=== PATIENT | female | born 1955 | race Caucasian/White ===

== ENCOUNTER 2020-01-03 11:08 | Outpatient (REF) | payer OTHER, SELFPAY ==
[2020-01-05 19:46] LABS: TS Negative Control Passed; TS Panel A 1; TS Panel B 1; TS Positive Control Passed; TSpotTB Negative (SeeBelow)
== END 2020-01-03 11:09 | disposition home or self-care (01) ==
LOC: HO.HMGCLDS 11:08
PROVIDERS: PCP Internal Medicine; Visit Provider Internal Medicine
DX: Z11.1 Encounter for screening for respiratory tuberculosis (principal); Z20.828 Contact with and (suspected) exposure to other viral communicable diseases
CPT/HCPCS: 86481; C9803; U0003

== ENCOUNTER 2020-02-12 09:15 | Outpatient (REF) | payer OTHER, SELFPAY ==
[2020-02-12 10:59] LABS: Glucose Urine UA NEG (NEG); Leukocyte Esterase Urine 1+ (NEG); Nitrite Urine POS (NEG); PH 5.5 (5.0-8.0); Specific Gravity - Urine >= 1.030 (1.005-1.025); Urine Blood NEG (NEG); Urine Ketones NEG (NEG); Urine Protein NEG (NEG-TRACE)
[2020-02-12 11:09] LABS: Appearance Urine HAZY; Color Urine YELLOW
[2020-02-12 11:11] LABS: Squamous Epithelial Cell Urine 1+ /LPF
[2020-02-12 11:12] LABS: Bacteria Urine 2+ /LPF
[2020-02-12 11:38] LABS: HBS Num1 27.13 mIU/mL (0-7.99); HBc Num1 0.17 S/CO (0.00-0.79); HBsAGNum1 0.23 S/CO (0.00-0.99); HIV AB/AG Nonreactive (Nonreactive); HIV Num 1 0.08 S/CO (0.00-0.99); Hepatitis B Core Antibody Nonreactive (Nonreactive); Hepatitis B Surface Antigen Negative (Negative); ~Hepatitis B Surface Antibody REACTIVE (Nonreactive); ~Hepatitis C Antibody Nonreactive (Nonreactive)
[2020-02-13 08:50] LABS: Syphilis Screen Nonreactive (Nonreactive)
[2020-03-08 11:28] LABS: CT PCR NOT DETECTED (Not Detect.); NG PCR NOT DETECTED (Not Detect.)
== END 2020-02-12 09:16 | disposition home or self-care (01) ==
LOC: HO.WFDLDS 09:15
PROVIDERS: Visit Provider Family Medicine
DX: I12.9 Hypertensive chronic kidney disease with stage 1 through stage 4 chronic kidney disease, or unspecified chronic kidney disease (principal); N18.2 Chronic kidney disease, stage 2 (mild); R80.9 Proteinuria, unspecified
CPT/HCPCS: 81001; 86704; 86706; 86780; 86803; 87086; 87088; 87186; 87340; 87389; 87491; 87591

== ENCOUNTER → 2020-03-11 13:30 | Outpatient (BNVA) | payer OTHER, SELFPAY | PROVIDERS: PCP Internal Medicine; Referring Provider Internal Medicine; Visit Provider Urology | DX: Z13.89 Encounter for screening for other disorder (principal) | CPT/HCPCS: Q3014 ==

== ENCOUNTER 2020-07-03 12:36 | Outpatient (REF) | payer OTHER, SELFPAY ==
--- NOTE | ~2020-07-03 | MM_ITS ---
EXAMINATION: MM SCREENING DIGITAL BREAST TOMOSYNTHESIS, BILATERAL CLINICAL INFORMATION: Screening. Asymptomatic. Benign right stereotactic biopsy 03/10/2016 (Benign breast tissue with stromal fibrosis, microcysts, columnar cell change and microcalcifications. Sclerosing adenosis and rare microcalcifications also noted). The lifetime risk of breast cancer based on the Tyrer-Cuzick Model is 10%. COMPARISON: Mammography: 04/19/2019, 03/17/2018, 03/02/2017, 10/25/2016, 03/10/2016, 03/02/2016, 02/20/2016 TECHNIQUE: Digital breast tomosynthesis is performed in both the craniocaudal and mediolateral oblique views along with computer-aided detection (CAD). Synthesized 2D images are generated from the tomosynthesis. Additional right MLO view is provided. FINDINGS: The breasts are heterogeneously dense, which may obscure small masses (ACR BI-RADS breast composition Category c). Parenchymal pattern is similar to prior studies. There is fibronodular parenchymal pattern with scattered bilateral stable asymmetries. There is no developing density or significant mass or architectural abnormality. No abnormal calcifications. There is biopsy clip marker posterior upper outer right breast. The axilla and skin contours are unremarkable. Low right axillary tail nodes stable. MM/MM tomosynthesis screening BI IMPRESSION: No significant changes from prior exams. ASSESSMENT: BI-RADS 2: Benign RECOMMENDATION: Routine annual mammography screening. This patient's information was entered into a reminder system with a target due date for their next mammogram.
== END 2020-07-03 12:37 | disposition home or self-care (01) ==
LOC: HO.MAMMO 12:36
PROVIDERS: PCP Internal Medicine; Visit Provider Internal Medicine
DX: Z12.31 Encounter for screening mammogram for malignant neoplasm of breast (principal)
CPT/HCPCS: 77063; 77067

== ENCOUNTER 2020-10-30 09:35 | Outpatient (REF) | payer OTHER, SELFPAY ==
[2020-11-01 23:21] LABS: TS Negative Control Passed; TS Panel A 0; TS Panel B 1; TS Positive Control Passed; TSpotTB Negative (SeeBelow)
== END 2020-10-30 09:36 | disposition home or self-care (01) ==
LOC: HO.HMGCLDS 09:35
PROVIDERS: PCP Internal Medicine; Visit Provider Internal Medicine
DX: Z11.1 Encounter for screening for respiratory tuberculosis (principal)
CPT/HCPCS: 36415; 86481

== ENCOUNTER 2020-11-05 11:12 | Outpatient (REF) | payer OTHER, SELFPAY ==
[2020-11-05 14:27] LABS: Alanine Aminotransferase 14 U/L (0-31); Anion Gap 17 (12-20); Aspartate Amino Transferase 19 U/L (5-31); Blood Urea Nitrogen 15 mg/dL (9-16); Calcium 9.6 mg/dL (8.4-10.2); Carbon Dioxide 23 mmol/L (22-29); Chloride 107 mmol/L (96-108); Cholesterol 225 mg/dL; Estimated Glomerular Filt Rate 55; Glucose Fasting 110 mg/dL (60-99); HDL Cholesterol 65 mg/dL; LDL Cholesterol Calculated 141 mg/dl; Potassium 4.6 mmol/L (3.3-5.1); Sodium 142 mmol/L (135-145); Triglycerides 98 mg/dL
[2020-11-05 14:40] LABS: Vitamin D 25-OH Total 42.7 ng/mL (>30)
== END 2020-11-05 11:13 | disposition home or self-care (01) ==
LOC: HO.HMGCLDS 11:12
PROVIDERS: PCP Internal Medicine; Visit Provider Internal Medicine
DX: Z00.00 Encounter for general adult medical examination without abnormal findings (principal); I10 Essential (primary) hypertension; Z78.0 Asymptomatic menopausal state
CPT/HCPCS: 36415; 80048; 80061; 82306; 84450; 84460

== ENCOUNTER → 2020-11-06 15:05 | Outpatient (BNVA) | payer OTHER, SELFPAY | PROVIDERS: PCP Internal Medicine | DX: N39.41 Urge incontinence (principal) | CPT/HCPCS: 51798; 99212 ==

== ENCOUNTER 2021-03-26 09:59 | Outpatient (REF) | payer OTHER, SELFPAY ==
[2021-03-26 11:44] LABS: Estimated Average Glucose 126 mg/dL
[2021-03-26 11:52] LABS: Anion Gap 11 (12-20); Blood Urea Nitrogen 18 mg/dL (9-16); Calcium 9.5 mg/dL (8.4-10.2); Carbon Dioxide 28 mmol/L (22-29); Chloride 105 mmol/L (96-108); Estimated Glomerular Filt Rate 59; Iron 52 mcg/dL (30-160); Magnesium 1.9 mg/dL (1.6-2.6); Percent Iron Saturation 16 % (15-50); Potassium 4.1 mmol/L (3.3-5.1); Sodium 140 mmol/L (135-145); Total Iron Binding Capacity 321 mcg/dL (228-428); Unsaturated Iron Binding 269 ug/dL
[2021-03-26 11:53] LABS: Alanine Aminotransferase 16 U/L (0-31); Anion Gap 11 (12-20); Aspartate Amino Transferase 18 U/L (5-31); Blood Urea Nitrogen 18 mg/dL (9-16); Calcium 9.7 mg/dL (8.4-10.2); Carbon Dioxide 28 mmol/L (22-29); Chloride 105 mmol/L (96-108); Cholesterol 235 mg/dL; Estimated Glomerular Filt Rate 60; Glucose Fasting 125 mg/dL (60-99); HDL Cholesterol 57 mg/dL; LDL Cholesterol Calculated 156 mg/dl; Potassium 4.3 mmol/L (3.3-5.1); Sodium 140 mmol/L (135-145); Triglycerides 113 mg/dL
[2021-03-26 12:08] LABS: Creatinine Urine 165.45 mg/dL; Protein/Creatinine Ratio, Ur 0.19 (<0.2); Total Protein Urine Random 31 mg/dL (<12)
[2021-03-26 12:13] LABS: Ferritin 181 ng/mL (10-250)
[2021-03-26 12:14] LABS: Vitamin D 25-OH Total 32.6 ng/mL (>30)
[2021-03-27 14:07] LABS: Calcium (PTHI) 9.7 mg/dL (8.6-10.4); PTHI 80 pg/mL (14-64)
== END 2021-03-26 10:00 | disposition home or self-care (01) ==
LOC: HO.HMGCLDS 09:59
PROVIDERS: PCP Internal Medicine; Visit Provider Internal Medicine Nephrology
DX: Z00.01 Encounter for general adult medical examination with abnormal findings (principal); I10 Essential (primary) hypertension; E78.5 Hyperlipidemia, unspecified; R73.01 Impaired fasting glucose; M81.0 Age-related osteoporosis without current pathological fracture; Z79.810 Long term (current) use of selective estrogen receptor modulators (SERMs); Z51.81 Encounter for therapeutic drug level monitoring
CPT/HCPCS: 36415; 80048; 80051; 80061; 82306; 82310; 82565; 82728; 83036; 83540; 83735; 83970; 84156; 84450; 84460; 84520

== ENCOUNTER 2021-07-07 08:15 | Outpatient (REF) | payer OTHER, SELFPAY ==
--- NOTE | ~2021-07-07 | MM_ITS ---
EXAMINATION: BONE DENSITOMETRY CLINICAL INDICATION: Age-related osteoporosis without current pathological fracture. COMPARISON: Previous BD dated 04/15/2017 and baseline BD dated 07/23/2010. TECHNIQUE: Using a [employer] DXA System (software version: 13.1) manufactured by [employer], dual-energy x-ray absorptiometry was performed of the lumbar spine and left hip. The images are of good technical quality. Summary results are attached. FINDINGS: AP SPINE L1-L4: Current: BMD 1.011 g/cm2, Z-score -0.7, T-score -1.4, osteopenia, 4.1% increase from previous, 1.9% increase from baseline (<5% change is not significant). Prior: BMD 0.971 g/cm2. Baseline: BMD 0.992 g/cm2. LEFT FEMUR, NECK: Current: BMD 0.691 g/cm2, Z-score -1.6, T-score -2.5, osteoporosis. Prior: BMD 0.631 g/cm2. Baseline: BMD 0.643 g/cm2. LEFT FEMUR, TOTAL: Current: BMD 0.679 g/cm2, Z-score -2.1, T-score -2.6, osteoporosis, 13.7% increase from previous, 2.0% increase from baseline (<5% change is not significant). Prior: BMD 0.597 g/cm2. Baseline: BMD 0.666 g/cm2. IDENTIFIED RISK FACTORS: Early menopause, secondary osteoporosis, osteoporosis, renal, tobacco use (current smoker), hysterectomy. HISTORY OF FRACTURE: None listed. MEDICATIONS: Calcium or multivitamin. MM/XR DEXA axial skeleton IMPRESSION: 1. DIAGNOSIS: Osteoporosis based on the lowest T-score value of -2.6 in the total femur applying World Health Organization criteria. 2. 10-YEAR FRACTURE RISK PREDICTION, FRAX: According to the guidelines, FRAX calculation should only be performed on patients in the osteopenia bone density category. Therefore, FRAX was not performed on this patient. 3. Treatment Recommendations: NOF guidelines recommend consideration for treatment in postmenopausal women and men age 50 and older presenting with the following: -A hip or vertebral (clinical or morphometric) fracture. -T-score less than or equal to -2.5 at the femoral neck or spine after appropriate evaluation to exclude secondary causes. -Low bone mass at the hip or spine and a 10-year fracture probability by FRAX of greater than or equal to 3% for hip fracture or greater than or equal to 20% for major osteoporotic fracture based on the [place] adapted WHO algorithm. 4. Other Recommendations: All treatment decisions require clinical judgment and consideration of individual patient factors, including patient preferences, comorbidities, previous drug use, risk factors not captured in the FRAX model (e.g. frailty, falls, vitamin D deficiency, increased bone turnover, interval significant decline in bone density) and possible under or overestimation of fracture risk by FRAX. Additional medical evaluation for secondary cause of low bone mineral density may be appropriate. FUTURE SCAN RECOMMENDATION: People with diagnosed cases of osteoporosis or at high risk for fracture should have regular bone mineral density tests. For patients eligible for Medicare, routine testing is allowed once every 2 years. The testing frequency can be increased to one year for patients who have rapidly progressing disease, those who are receiving or discontinuing medical therapy to restore bone mass, or have additional risk factors.
--- NOTE | ~2021-07-07 | MM_ITS ---
EXAMINATION: MM SCREENING DIGITAL BREAST TOMOSYNTHESIS, BILATERAL CLINICAL INFORMATION: Screening. Asymptomatic. The lifetime risk of breast cancer based on the Tyrer-Cuzick Model is 6%. COMPARISON: Mammography: 07/03/2020, 04/19/2019, 03/17/2018, 03/02/2017, 02/20/2016 TECHNIQUE: Digital breast tomosynthesis is performed in both the craniocaudal and mediolateral oblique views along with computer-aided detection (CAD). Synthesized 2D images are generated from the tomosynthesis. FINDINGS: The breasts are heterogeneously dense, which may obscure small masses (ACR BI-RADS breast composition Category c). Fibronodular parenchymal pattern with scattered bilateral asymmetries and shifting fibroglandular tissue related to positioning are seen similar to prior studies. There is no significant mass or architectural abnormality. No abnormal calcifications. Biopsy clip marker again noted on right posterior upper outer quadrant. The axilla and skin contours are unremarkable. No significant changes from prior studies. MM/MM tomosynthesis screening BI IMPRESSION: No significant changes from prior exams. ASSESSMENT: BI-RADS 2: Benign RECOMMENDATION: Routine annual mammography screening. This patient's information was entered into a reminder system with a target due date for their next mammogram.
== END 2021-07-07 08:16 | disposition home or self-care (01) ==
LOC: HO.MAMMO 08:15
PROVIDERS: Visit Provider Internal Medicine
DX: Z13.820 Encounter for screening for osteoporosis (principal); Z12.31 Encounter for screening mammogram for malignant neoplasm of breast; M81.0 Age-related osteoporosis without current pathological fracture; Z78.0 Asymptomatic menopausal state
CPT/HCPCS: 77063; 77067; 77080

== ENCOUNTER 2021-09-07 13:07 | Outpatient (REF) | payer OTHER, SELFPAY | END 2021-09-07 13:08 | disposition home or self-care (01) | LOC: HO.LAB 13:07 | DX: N39.0 Urinary tract infection, site not specified (principal); N31.2 Flaccid neuropathic bladder, not elsewhere classified; Z87.891 Personal history of nicotine dependence | CPT/HCPCS: 87086; 87088; 87186; 99212 ==

== ENCOUNTER → 2021-10-05 13:21 | Outpatient (BNVA) | payer OTHER, SELFPAY | PROVIDERS: PCP Internal Medicine; Visit Provider Internal Medicine | DX: A49.8 Other bacterial infections of unspecified site (principal); N18.2 Chronic kidney disease, stage 2 (mild); N39.41 Urge incontinence; Z16.12 Extended spectrum beta lactamase (ESBL) resistance | CPT/HCPCS: 99202 ==

== ENCOUNTER 2021-12-28 12:50 | Outpatient (RCR) | payer OTHER, SELFPAY ==
--- NOTE | 2022-01-18 17:04 | MHC.SP.ADU ---
Addendum entered and electronically signed by Gisela Metz MA, CCC-PASSENGER BARGE MASTER 01/18/22 17:29: As a clinical supervisor telephone clerks, I have reviewed and agree with the content of this report. 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 Bev was referred for a speech and language evaluation by her primary care physician, Valorie Zamora MD, of [facility] in [place], [place]. Bev was accompanied by her son, Jeremi, to the evaluation on 12/28/21. Reported areas of difficulty include: expressing thoughts, being understood by others, understanding what others are saying, orientation/memory, problem solving, focus/attention, reading/writing, word finding, maintaining conversation topic, speech fluency, and oral motor weakness. Bev reports that her main concerns are reading, writing, memory, attention, and word finding. Bev reports that she reads ?about 2nd grade level? and ?is not able to digest information? since the stroke.? Bev and her son both report that she had some difficulty with short term memory prior to the stroke. She reports that she is ?sometimes not able to remember what she is talking about? and ?forgets where she is going? at times. Bev reports seeing a Speech-Language Pathologist and Occupational Therapist during her time hospitalized for the recent stroke then seeing an aide at the house for a few short visits after discharge. Bev reported that she was told she would need to see a Speech-Language Pathologist once discharged from the hospital. Medical History: Other: Bipolar disorder, Expressive aphasia, L MCA, encephalopathy, hypertensive urgency, bipolar I disorder, obese class I Medication List: Recent Hospitalizations: Yes September 2021 for CVA Respiratory Needs: Room Air Patient Orientation: Alert & Oriented x 4 Swallowing History: Comments: Bev expresses she has no difficulty with swallowing Reported Speech, Language, Cognition difficulties: Understanding Attention Reading Memory Speaking Problem Solving Writing Assessment Speech Production: Aphasic: Fluent Clinical Impression: Impaired Tests of Speech & Lang Adults: BDAE Clinical Impression: Impaired Observations: At times, Bev?s narratives were difficult to follow due to a combination of circumlocution and word finding errors. For example, when trying to explain some challenges she has she stated, ??incognate things? I can follow small orders to do.? At times, Bev appears unaware her message is unclear. Bev reports that she has ?difficulty putting sentences together? and ?tries to go slow.? She reports that she sometimes refrains from talking because of her nerves. Bev reports that she has difficulty with word finding, stating that she ?sometimes says a completely incorrect word? or will say ?school instead of work.? Word finding errors were observed throughout both the interview and evaluation. Bev presented most often with phonemic paraphasias, sometimes real word and sometimes nonsense word. For example, ?Napoleon? was substituted with ?Cynthiana? and ?pretzel? was produced as ?preskel.? Bev presented with slow, effortful, and choppy speech reflective of her dysarthria. Throughout the evaluation, Bev requested frequent repetitions and clarifications. For example, when asked to dictate the word ?flag,? Bev responded, ?You said flag?? Bev reports that she relies a lot on her son to help her with communication and memory. Bev demonstrated difficulty expressing numbers. When asked when she was born Bev responded, ?[birth year].? When prompted for the year, Bev responded ?that?s where it gets tricky? 5? 7.? When prompted for age, Bev responded ?51? nope I?m sorry 66? no, 5? yes, 5?? When shown the number 66 and asked to read it, Bev stated she was not able to. Bev was subsequently able to provide the number ?25? in her street address and her full zip code. Western Aphasia Battery Screening: AUDITORY VERBAL COMPREHENSION QUESTIONS: Bev answered yes/no auditory comprehension questions with 100% accuracy. When asked ?do you eat a banana before you peel it?? Bev explained the process of peeling and eating a banana prior to answering ?no? correctly. REPETITION: Bev accurately repeated words (1-3 syllables) and short sentences. When presented with a 7 word sentence, Bev correctly remembered 3 of the words in her response: ?Too long? That?s a tricky one? Brown dog something over.? BDAE: Bev was administered several subtests from the [employer] Diagnostic Aphasia Evaluation (BDAE). The subtests administered with and notes on Bev?s performance are summarized below: PICTURE DESCRIPTION: Bev was shown the ?Cookie Theft? picture and asked to describe the picture. Bev demonstrated word finding difficulty several times throughout the task. ?Let?s see, we start with a boy? or girl in the ch-cookie jar?eating cookies?or saving-sharing cookies quietly? on a broken bench.? AUDITORY COMPREHENSION: -When given a word orally, Bev identified the correct word in 15 out of 16 items by pointing to the correct picture. Bev pointed to the letter ?O? when asked to point to the letter ?N.? Responses after a short time delay (>5 seconds) were scored with 1/2 point while immediate responses (<5 seconds) were scored with 1 point. Incorrect test items were scored 0. Bev scored a 14.5/16 on this subtest. -When given 2-step commands verbally, Bev followed 1 out of 3 commands. When prompted to, ?Point to the ceiling, then to the floor,? Bev looked with her eyes first to the floor and then to the ceiling. The one command that Bev followed correctly, she was observed to repeat the directions aloud to herself slowly while following the commands at the same time. -After being read a short 4 sentence passage aloud, Bev was asked 4 comprehension questions to which she answered correctly. ORAL EXPRESSION: Bev did not demonstrate difficulty with automatic sequencing tasks including counting and reciting days of the week. Bev did demonstrate difficulty understanding instructions for this task, as she was asked to count to 21 and stopped counting at 20. READING: -Bev was able to match letters across cases and scripts, demonstrating basic symbol recognition, receiving a 4/4 on this task. -Bev was able to match numbers to fingers and dot patterns, receiving a score of 4/4 on this task. -Bev was asked to match pictures to written words, receiving a score of 3/4 on this task. However, Bev verbally produced the correct words while reading aloud. -Bev demonstrated some delay in response when asked to read single words aloud. Immediate responses (0-3 seconds) were scored with 3 points, short delay (3-10 seconds) was scored with 2 points, and long delay (10-30 seconds) was scored with 1 point. Bev read some words immediately and others with delay varying from 5 seconds to 15 seconds. Bev demonstrated some possible errors in word finding. For example, the word ?fifteen? was initially read as ?pineapple.? Bev scored 12/15 on this task. -Bev read aloud sentences of increasing length and complexity then answered written comprehension questions after a short delay. Bev read aloud sentences correctly in 3 out of 5 trials and answered comprehension questions correctly in 3/3 trials. Incorrect words were replaced with phonemically similar words. For example, ?forty-five? was read as ?fifteen? and ?snacks? was read as ?stands.? -Bev was asked to read aloud sentences and to select the correct word or phrase to complete the sentence from a choice of 4 written words. Bev received a 4/4 on this task. WRITING: Bev was able to print and sign her name as well as write letters, numbers and words that were dictated to her. Minimal spelling errors were demonstrated, however Bev?s writing was observed to be slow and laborious. It took over 30 seconds and 3 attempts to write the word ?apartment? and over 2 minutes to copy the sentence, ?The quick brown chase jumps over the lazy dog.? When copying this sentence Bev was observed to consistently look at the written model and then write several times per word. Each time the Bev made an error, she began writing the entire word over again. Often times Bev delayed 5+ seconds prior to writing a word on paper. Bev exhibited less difficulty with primer words in comparison to regular phonics and common irregular word forms. Bev was observed to spell the word ?knife? aloud correctly as ?K-N-I-F-E? while pointing to letters she had written on paper: K-N-I-V-[id number]. She attempted the word cough 2X then gave up. Tests of Cognition: Clinical Impression: Did Not Test Observations: Plan to test Impressions and Recommendations Summary: Based on the evaluation, Bev presents with moderate expressive -receptive aphasia characterized by word finding errors, difficulty following commands, and increased effort and time for reading and writing. Bev also presents with difficulty in cognitive linguistic areas including attention and memory. Daily Activities: Moderate Interpersonal Interactions: Moderate Prognosis for Improvement: Good Recommendation for Speech Therapy: Further Testing Needed Outpatient Speech Therapy Frequency/Duration: 1x weekly x 12 weeks Date Range for Service Requested: Time to Reassess: 6 months RECOMMENDATIONS: It is recommended that Bev participate in 1:1 speech and language therapy in the outpatient setting 1X weekly for 12 weeks. The following goals/objectives are recommended: Cut Off Tender Glass Goals: LTG 1 Bev will complete standardized testing of her receptive and expressive language skills to obtain standardized scores and update goals as appropriate. LTG 2 Bev will improve expressive and receptive language skills. LTG 3 Bev will improve self-advocacy for more opportunities and times to participate in conversation. Short Term Goals: STG 1.1 Bev will complete the BDAE with 100% completion to better inform goals. STG 1.2 Bev will complete the CLQT with 100% completion to better inform goals in the area of attention and memory. STG 2.1 Bev will name functional items with moderate support (i.e. phonemic cues) with 80% accuracy during confrontational naming tasks. STG 2.2 Bev will follow verbal or written 2-step command with no more than 1 repetition when provided with gestural support with 80% accuracy. STG 2.3 Bev will complete functional written language tasks (i.e. email or text conversations, filling out paperwork, etc.) when provided with minimal support with 80% accuracy. STG 3.1 Bev will independently request more time (vocally or with gesture) in order to process information or find correct words within communicative interactions in 80% of opportunities. Recommended Referrals to be Discussed with Primary Care Provider: Neurology: Recommend referral to neurology due to patient's report of short term memory loss present prior to CVA. Occupational Therapy Eval: Recommend referral for occupational therapy due to patient?s report of not being able to consistently partake in functional tasks like making food and doing her hair. Patient Education: Completed: Yes Patient/Caregiver Education: Described Results of Evaluation Patient expressed understanding of evaluation Patient agrees with goals and treatment plan It was a pleasure to work with Bev and her family. If you have any questions about the contents of this report, do not hesitate to contact me at [phone] or [email or web address] Lathe Set Up Operator Clinican/Clinical Fellow: Yes: Jeana Fowler M.A., -PASSENGER BARGE MASTER Supervisory Statement: Yes Speech Language Pathologist: Gisela Metz M.A., [facility]-PASSENGER BARGE MASTER
== END 2022-01-27 15:07 | disposition still patient (30) ==
LOC: HO.SH 12:50
PROVIDERS: Visit Provider Internal Medicine
DX: R47.01 Aphasia (principal); I69.30 Unspecified sequelae of cerebral infarction
CPT/HCPCS: 92523

== ENCOUNTER 2022-03-22 13:01 | Outpatient (REF) | payer OTHER, SELFPAY ==
[2022-03-22 16:51] LABS: Urine Cytology See Pathology rpt
== END 2022-03-22 13:02 | disposition home or self-care (01) ==
LOC: HO.LAB 13:01
PROVIDERS: PCP Nurse Practitioner Family; Visit Provider Nurse Practitioner Family
DX: N39.0 Urinary tract infection, site not specified (principal); N32.81 Overactive bladder; Z86.73 Personal history of transient ischemic attack (TIA), and cerebral infarction without residual deficits; Z79.899 Other long term (current) drug therapy
CPT/HCPCS: 87086; 87088; 87186; 88112; 99212

== ENCOUNTER 2022-03-30 10:12 | Outpatient (REF) | payer OTHER, SELFPAY ==
[2022-03-30 11:47] LABS: Hematocrit 38.9 % (37.0-47.0); Hemoglobin 12.9 g/dl (12.0-16.0); Mean Corpuscular HGB Conc 33.2 g/dl (31.0-35.0); Mean Corpuscular Hemoglobin 31.3 pg (27.0-33.0); Mean Corpuscular Volume 94.4 fL (80.0-98.0); Mean Platelet Volume 10.2 fL (9.4-12.3); Platelet Count 286 X10*3/uL (160-400); Red Blood Count 4.12 X10*6/uL (4.20-5.50); Red Cell Distribution Width 12.1 % (11.0-16.0); White Blood Count 9.4 X10*3/uL (4.8-10.8)
[2022-03-30 12:47] LABS: Alanine Aminotransferase 16 U/L (0-31); Albumin Level 4.2 g/dL (3.5-5.0); Alkaline Phosphatase 74 U/L (39-117); Anion Gap 16 (12-20); Aspartate Amino Transferase 18 U/L (5-31); Bilirubin Total 0.6 mg/dL (0.0-1.0); Blood Urea Nitrogen 28 mg/dL (9-16); Calcium 9.5 mg/dL (8.4-10.2); Carbon Dioxide 26 mmol/L (22-29); Chloride 106 mmol/L (96-108); Cholesterol 144 mg/dL; Estimated Glomerular Filt Rate 37; Glucose Fasting 94 mg/dL (60-99); HDL Cholesterol 32 mg/dL; LDL Cholesterol Calculated 86 mg/dl; Potassium 3.9 mmol/L (3.3-5.1); Sodium 144 mmol/L (135-145); Total Protein 6.6 g/dL (6.5-8.0); Triglycerides 134 mg/dL
[2022-03-30 13:06] LABS: TSH reflex Free T4 1.18 uIU/mL (0.32-4.0); Vitamin D 25-OH Total 40.7 ng/mL (>30)
== END 2022-03-30 10:13 | disposition home or self-care (01) ==
LOC: HO.WFDLDS 10:12
PROVIDERS: Visit Provider Nurse Practitioner Family
DX: Z00.00 Encounter for general adult medical examination without abnormal findings (principal)
CPT/HCPCS: 36415; 80053; 80061; 82306; 84443; 85027

== ENCOUNTER 2022-05-21 10:28 | Outpatient (REF) | payer OTHER, SELFPAY ==
--- NOTE | ~2022-05-21 | US_ITS ---
EXAMINATION: US RETROPERITONEAL COMPLETE (RENAL) CLINICAL INFORMATION: N39.0 - Urinary tract infection, site not specified. COMPARISON: None available. TECHNIQUE: Real-time imaging of the kidneys and bladder. FINDINGS: RIGHT KIDNEY: 11.7 x 5.6 x 5.7 cm (SAG x AP x TRV). The kidney is normal in size, contour, and echogenicity. Renal cortical thickness is normal. A 5 x 4 x 2 mm calculus is suspected within a calyx at the interpolar region. A 2 x 3 x 4 mm shadowing echogenic calculus is suspected in an upper pole calyx. No hydronephrosis. LEFT KIDNEY: 7.7 x 4.1 x 3.0 cm (SAG x AP x TRV). Left kidney is atrophic with renal cortical thinning. Normal parenchymal echogenicity. No focal parenchymal lesions. No hydronephrosis. Echogenic foci are evident within the region of the calyces at the interpolar region of the left kidney, measuring 6 x 5 x 5 mm and 6 x 4 x 6 mm. A 6 x 7 x 6 mm calculus is suspected within an upper pole calyx. No hydronephrosis. BLADDER: Well distended. Bilateral ureteral jets are not demonstrated. Prevoid bladder volume is 151 mL. Postvoid bladder volume is 15 mL. INCIDENTAL: Along the right aspect of the bladder dome, there is a primarily cystic lesion measuring 6.4 x 12 x 7.4 cm with solid components and internal projections, likely ovarian in origin. US/US retroperitoneal comp IMPRESSION: 1. Bilateral nonobstructive renal calculi. No hydronephrosis. 2. Left renal atrophy. 3. Cystic lesion at the right aspect of the bladder dome, likely ovarian in origin. MRI pelvis with and without contrast or surgical assessment is recommended for further assessment.
== END 2022-05-21 10:29 | disposition home or self-care (01) ==
LOC: HO.US 10:28
PROVIDERS: PCP Nurse Practitioner Family; Visit Provider Nurse Practitioner Family
DX: N39.0 Urinary tract infection, site not specified (principal); N32.81 Overactive bladder
CPT/HCPCS: 76770

== ENCOUNTER 2022-06-16 11:17 | Outpatient (REF) | payer OTHER, SELFPAY | END 2022-06-16 11:18 | disposition home or self-care (01) | LOC: HO.LAB 11:17 | PROVIDERS: PCP Nurse Practitioner Family; Visit Provider Nurse Practitioner Family | DX: N83.209 Unspecified ovarian cyst, unspecified side (principal); N39.0 Urinary tract infection, site not specified; N32.81 Overactive bladder | CPT/HCPCS: 51798; 87086; 87088; 87186; 99212 ==

== ENCOUNTER → 2022-07-14 13:26 | Outpatient (BNVA) | payer OTHER, SELFPAY | PROVIDERS: PCP Nurse Practitioner Family; Visit Provider Nurse Practitioner Family | DX: N83.201 Unspecified ovarian cyst, right side (principal); N39.0 Urinary tract infection, site not specified; N32.81 Overactive bladder | CPT/HCPCS: 51798; 99212 ==

== ENCOUNTER → 2022-07-16 14:55 | Outpatient (BNVA) | payer OTHER, SELFPAY | PROVIDERS: PCP Nurse Practitioner Family; Visit Provider Internal Medicine Endocrinology, Diabetes & Metabolism | DX: M81.0 Age-related osteoporosis without current pathological fracture (principal); N18.2 Chronic kidney disease, stage 2 (mild); Z78.0 Asymptomatic menopausal state; Z72.0 Tobacco use; Z90.710 Acquired absence of both cervix and uterus; Z79.810 Long term (current) use of selective estrogen receptor modulators (SERMs); Z79.899 Other long term (current) drug therapy | CPT/HCPCS: 99202 ==

== ENCOUNTER 2022-07-22 15:02 | Outpatient (REF) | payer OTHER, SELFPAY ==
--- NOTE | ~2022-07-22 | MM_ITS ---
EXAMINATION: MM SCREENING DIGITAL BREAST TOMOSYNTHESIS, BILATERAL CLINICAL INFORMATION: Screening. Asymptomatic. The lifetime risk of breast cancer based on the Tyrer-Cuzick Model is 7%. COMPARISON: Mammography: 07/18/2019, 07/03/2020, 12/18/2019, 03/17/2018 TECHNIQUE: Digital breast tomosynthesis is performed in both the craniocaudal and mediolateral oblique views along with computer-aided detection (CAD). Synthesized 2D images are generated from the tomosynthesis. FINDINGS: The breasts are heterogeneously dense, which may obscure small masses (ACR BI-RADS breast composition Category c). There is fibronodular parenchymal pattern similar to prior studies. No developing density, or architectural abnormality. There are no significant masses, abnormal calcifications, or other abnormalities. The axilla and skin contours are unremarkable. No significant changes. MM/MM tomosynthesis screening BI IMPRESSION: No mammographic evidence of malignancy. ASSESSMENT: BI-RADS 2: Benign RECOMMENDATION: Routine annual mammography screening. This patient's information was entered into a reminder system with a target due date for their next mammogram.
== END 2022-07-22 15:03 | disposition home or self-care (01) ==
LOC: HO.MAMMO 15:02
PROVIDERS: PCP Nurse Practitioner Family; Visit Provider Nurse Practitioner Family
DX: Z12.31 Encounter for screening mammogram for malignant neoplasm of breast (principal)
CPT/HCPCS: 77063; 77067

== ENCOUNTER 2022-08-12 13:23 | Inpatient (IN) | payer OTHER, SELFPAY ==
--- NOTE | ~2022-08-12 | US_ITS ---
EXAMINATION: US ABDOMEN LIMITED CLINICAL INFORMATION: Right upper quadrant pain. COMPARISON: 05/21/2022 TECHNIQUE: Real-time imaging of the right upper quadrant abdominal viscera. FINDINGS: PANCREAS: Tail obscured. LIVER: The liver is normal in size. The liver contour is normal. Parenchymal echogenicity is normal. No focal hepatic lesion. There is no intrahepatic biliary duct dilatation seen. GALLBLADDER: Impacted with shadowing stones. Wall echo shadow complex. Acoustic shadowing limits evaluation. Negative sonographic Walker's sign. COMMON BILE DUCT: Normal in caliber measuring 0.5 cm in diameter. RIGHT KIDNEY: No hydronephrosis. No renal calculi or focal parenchymal lesions. The kidney measures 11.5 cm in maximum dimension. FREE FLUID: None. US/US abdomen limited IMPRESSION: Gallbladder impacted with stones. The degree of acoustic shadowing limits evaluation. Findings are equivocal for acute cholecystitis. Advise clinical correlation.
--- NOTE | ~2022-08-12 | CT_ITS ---
EXAMINATION: CT HEAD WITHOUT CONTRAST CLINICAL INFORMATION: Confusion for several days. COMPARISON: 04/27/2011 TECHNIQUE: Contiguous axial imaging was performed from the skull base to vertex without intravenous contrast. This CT examination was performed using dose optimization techniques as appropriate, variously including the following: * Automated exposure control * Adjustment of mA and/or kV according to patient size (this includes techniques or standardized protocols for targeted exams where dose is matched to indication/reason for exam; i.e. extremities or head) Use of iterative reconstruction technique DLP: 538 mGy-cm. FINDINGS: There is no evidence of acute intracranial hemorrhage or territorial infarction. No abnormal mass effect or midline shift is seen. Area of hypoattenuation in the high left frontoparietal region which is new from 2012.. No extra-axial fluid collections are identified. No hydrocephalus. Proportional prominence of the ventricles and sulcal spaces is consistent with mild volume loss. Patchy periventricular and deep white matter hypoattenuation is consistent with mild small vessel ischemic changes. The osseous structures and soft tissues are normal. The opacified bilateral ethmoid air cells. The mastoid air cells and visualized portions of the paranasal sinuses are otherwise well aerated. CT/CT head/brain wo IV con IMPRESSION: Area of hypoattenuation in the high left frontoparietal region which is new from 2012. While this most likely represents a chronic infarct, there is no recent prior to compare.. Chronic volume loss with small vessel ischemic change.
--- NOTE | 2022-08-12 13:26 | ED_ITS ---
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 Patient denies any increasing visual or speech disturbances but feels that her thought processes are not as sharp but denies any gait instability and says that on Tuesday/Tuesday she developed some transient nausea and vomiting is had chronic diarrhea since her stroke, she states subjective fevers Tuesday and a Tuesday but states that yesterday she felt better but still a little foggy. Otherwise, she denies any shortness of breath, dizziness, chest pain/palpitations, GI or symptoms. Related Data Home Medications Medication Instructions Recorded Confirmed zolpidem 5 mg tablet 5 mg PO DAILY 03/19/21 07/16/22 clonidine 0.1 mg/24 hr weekly 1 patch transdermal QWEEK 11/12/21 07/16/22 transdermal patch quetiapine 50 mg tablet,extended 100 mg PO DAILY 11/12/21 07/16/22 release 24 hr amlodipine 5 mg tablet 5 mg PO DAILY 03/22/22 07/16/22 raloxifene 60 mg tablet 60 mg PO DAILY 03/22/22 07/16/22 multivitamin with iron 1 tab PO DAILY 06/07/22 07/16/22 nicotine 14 mg/24 hr daily 1 patch topical DAILY 07/14/22 07/16/22 transdermal patch nicotine 21 mg/24 hr daily 1 patch topical DAILY 07/14/22 07/16/22 transdermal patch Previous Rx's Medication Instructions Recorded lisinopril 20 mg tablet 20 mg PO DAILY #30 tabs 04/15/22 miscellaneous medical supply See Rx Instructions miscellaneous 04/26/22 .COMPLEX 1 month #3 ea miscellaneous medical supply See Rx Instructions miscellaneous 04/26/22 .COMPLEX 30 days #1 ea aspirin 81 mg tablet,delayed 81 mg PO DAILY #30 tabs 05/12/22 release metoprolol succinate 25 mg 75 mg PO DAILY #90 tabs 05/12/22 tablet,extended release 24 hr tolterodine 4 mg capsule,extended 4 mg PO DAILY 30 days #30 caps 05/21/22 release 24 hr atorvastatin 80 mg tablet 80 mg PO BEDTIME 30 days #30 tabs 06/09/22 ascorbic acid (vitamin C) 1,000 mg 1,000 mg PO DAILY 90 days #90 tabs 07/14/22 tablet estradiol 0.01% (0.1 mg/gram) See Rx Instructions vaginal 3XW 30 07/14/22 vaginal cream days #42.5 grams methenamine hippurate 1 gram tablet 1 g PO daily 90 days #90 tabs 07/14/22 fluconazole 150 mg tablet 150 mg PO Q3D 6 days #2 tabs 07/20/22 fosfomycin tromethamine 3 gram 1 packet PO Q3D 9 days #3 ea 07/20/22 oral packet Allergies Allergy/AdvReac Type Severity Reaction Status Date / Time acetaminophen [Vicodin] Allergy Unknown tongue Verified 07/14/22 14:39 swells, hives on bottom of feet adhesive tape [Adhesive Tape] Allergy Unknown Rash Verified 07/29/22 14:48 hydrocodone [Vicodin] Allergy Unknown tongue Verified 07/14/22 14:39 swells, hives on bottom of feet latex [Latex] Allergy Unknown Rash, red Verified 07/29/22 14:48 blisters naproxen [Naprosyn] Allergy Unknown unknown Verified 07/14/22 14:39 penicillin V Allergy Unknown hives, rash Verified 07/14/22 14:39 Penicillins Allergy Unknown Rash, Verified 07/29/22 14:48 Nausea and Vomiting Sulfa (Sulfonamide Allergy Unknown Hives, rash Verified 07/29/22 14:48 Antibiotics) amphetamine [Adderall] AdvReac Unknown diarrhea Verified 07/29/22 14:48 dextroamphetamine [Adderall] AdvReac Unknown diarrhea Verified 07/29/22 14:48 morphine [MORPHINE] AdvReac Unknown Nausea and Verified 07/29/22 14:48 Vomiting phenobarbital [Phenobarbital] AdvReac Unknown extreme Verified 07/29/22 14:48 hyperactivity meperidine [From Demerol] AdvReac Vomiting Verified 07/29/22 14:48 Review of Systems Review of Systems: Pertinent positives and negatives as stated in [facility] Past Medical History Source: nursing notes reviewed Medical History Bipolar 1 disorder CKD (chronic kidney disease) stage 2, GFR 60-89 ml/min COVID-19 vaccination declined Dyslipidemia Dyspareunia in female Elevated blood pressure reading in office with diagnosis of hypertension Essential hypertension Expressive aphasia Gestational diabetes History of CVA (cerebrovascular accident) History of CVA with residual deficit Hx of uterine prolapse Hypotonic bladder Impaired fasting glucose Osteoarthritis of knees, bilateral Osteoporosis Overactive bladder Psoriasis Rectocele Recurrent urinary tract infection Refused influenza vaccine Urge incontinence Urinary tract infection Surgical History H/O rectocele repair History of Maloney urethropexy History of total left knee replacement (TKR) History of total right knee replacement (TKR) Hx of total vaginal hysterectomy Family History Family History Father Diabetes mellitus CHF (congestive heart failure) Mother FH: stomach cancer Crohn disease Son Mental health disorder Social History Social History Housing: Apartment Patient Tobacco Use Status: Former Tobacco user e-Cigarette/Vaping Use: Never Used Advance Directives: No service: No Current occupational status: disabled Cognitive needs: No Hearing needs: No Vision needs: Yes Physical Exam ED Vital Signs: Vital Signs - 24 hr 08/12/22 13:27 08/12/22 15:32 Temperature 98.6 F 97.8 F Pulse Rate 89 73 Respiratory Rate 18 16 Blood Pressure 139/92 H 125/63 Pulse Oximetry 97 98 Oxygen Delivery Method Room Air BMI result Body Mass Index 29.2 VITAL SIGNS: Reviewed. GENERAL: Well developed, well nourished, in no acute distress. HEAD: Normocephalic/atraumatic EYES: PERRLA, EOMI EARS: Ext canals without abnormality NOSE: Nares patent bilateral OROPHARYNX: no oral lesions noted, posterior pharynx clear, dry mucosa NECK: Supple, no adenopathy LUNGS: Normal breath sounds. No adventitious sounds or accessory muscle use. SpO2<97> CARDIOVASCULAR: Regular rate and rhythm without noted murmurs, no JVD or lower extremity edema. ABDOMEN: Soft, non-tender, non-distended with bowel sounds. MUSCULOSKELETAL: No tenderness, deformities, or effusions noted on gross inspection. EXTREMITIES: No cyanosis, clubbing or edema. SKIN: Inspection of the skin reveals no rashes NEUROLOGIC: Alert and oriented x 4. Strength and sensation to light touch were grossly intact x 4, other than known expressive aphasia, patient has no facial asymmetry, nor does she have pronator drift, cranial nerves 2-12 grossly intact. Course Course Course Narrative: This is a rapid medical exam. Deferred additional HPI, ROS, PE to primary provider. 66 yo female with history of CVA, HTN, tobacco smoking, speech difficulty here with complaints of confusion, dizziness, holding her body up x several days . Will check labs, EKG, CT head, UA/MARTINES VSS Medications Administered Discontinued Medications Generic Name Dose Route Start Last Admin Trade Name Freq PRN Reason Stop Dose Admin Sodium Chloride 1,000 mls @ 999 mls/hr 08/12/22 14:15 08/12/22 14:35 Ns IV 08/12/22 15:15 999 mls/hr .Q1H1M NORM Administration Medical Decision Making Medical Decision Making [facility] Narrative: 1431: 66-year-old female with history and clinical presentation of self-reported confusion/fogginess. Will further evaluate for etiology. At this time she is nonfocal. 1506: I texted sepsis coordinator to inform her that patient is allergic and/or prior microbiology results resistant to antibiotics available on our formulary. I will need to reach out to Infectious Disease physician. Was informed that as patient is not meeting SIRS criteria at this time this is not an imminent concern. 1600: I reached out to Infectious Disease architectural sales consultant to request antibiotic recommendations given patient's complicated history of recurrent UTIs, ESBL, and multiple medication allergies. In addition, I briefly discuss the case with inpatient hospitalist who accepts admission. I did do a right upper quadrant ultrasound as patient's alkaline phosphatase and transaminases were mildly elevated and prelim is cholelithiasis without evidence of cholecystitis. Differential Diagnosis Please see the discussion above Consult Healthcare Provider Management of the patient was discussed with: Hospitalist and Patient Services Technician Please see the discussion above Lab Data Please see the discussion above 08/12/22 14:12 08/12/22 14:12 Labs: Lab Results 08/12/22 08/12/22 08/12/22 Range/Units 13:57 14:12 14:12 WBC 6.2 (4.8-10.8) X10*3/uL RBC 3.33 L (4.20-5.50) X10*6/uL Hgb 10.9 L (12.0-16.0) g/dl Hct 32.1 L (37.0-47.0) % MCV 96.4 (80.0-98.0) fL MCH 32.7 (27.0-33.0) pg MCHC 34.0 (31.0-35.0) g/dl RDW 12.0 (11.0-16.0) % Plt Count 220 (160-400) X10*3/uL MPV 9.6 (9.4-12.3) fL Immature Gran % (Auto) 0.2 (0.0-0.4) % Neut % (Auto) 62.7 (45-73) % Lymph % (Auto) 24.3 (20-40) % [place] % (Auto) 6.5 (2-11) % Eos % (Auto) 5.8 H (0-4) % Baso % (Auto) 0.5 (0-2) % Lymph # (Auto) 1.5 (1.2-4.9) X10*3/uL [place] # (Auto) 0.4 (0.1-1.2) X10*3/uL Eos # (Auto) 0.4 (0.0-0.4) X10*3/uL Baso # (Auto) 0.0 (0.0-0.2) X10*3/uL Abs Immat Gran (auto) 0.01 (0.00-0.03) X10*3/uL Absolute Neuts (auto) 3.9 (2.0-8.3) x10*3/uL Absolute Nucleated RBC 0.000 (0.0-0.012) X10*3/uL Nucleated RBC % (auto) 0.0 (0.0-0.2) /100WBC PT (10.0-13.1) SEC INR (0.9-1.1) Sodium 141 (135-145) mmol/L Potassium 3.8 (3.3-5.1) mmol/L Chloride 107 (96-108) mmol/L Carbon Dioxide 24 (22-29) mmol/L Anion Gap 14 (12-20) BUN 45 H (9-16) mg/dL Creatinine 1.65 H (0.5-1.4) mg/dL Estim Creat Clear Calc 39.2 Estimated GFR 31 POC Glucose 181 H (60-115) mg/dL Random Glucose 172 H (60-115) mg/dL Lactic Acid (0.5-2.0) mmol/L Calcium 9.0 (8.4-10.2) mg/dL Magnesium 2.2 (1.6-2.6) mg/dL Total Bilirubin 0.4 (0.0-1.0) mg/dL Direct Bilirubin 0.2 (0.0-0.5) mg/dL AST 66 H (5-31) U/L ALT 172 H (0-31) U/L Alkaline Phosphatase 129 H (39-117) U/L Troponin I High Sens (<3.5-17.0) ng/L Total Protein 6.7 (6.5-8.0) g/dL Albumin 3.8 (3.5-5.0) g/dL Urine Color Urine Appearance Urine pH (5.0-9.0) Ur Specific [place] (1.005-1.025) Urine Protein (Neg-Trace) mg/dL Urine Glucose (UA) (Negative) mg/dL Urine Ketones (Negative) mg/dL Urine Blood (Negative) Urine Nitrite (Negative) Ur Leukocyte Esterase (Negative) Urine RBC (0-2) /HPF Urine WBC (0-5) /HPF Ur Squamous Epith Cells (0-2) /HPF Urine Bacteria (None Seen) Hyaline Casts (0-2) /LPF Urine Opiates Screen (Not Detect) Urine Fentanyl Screen (Not Detect) Ur Barbiturates Screen (Not Detect) Ur Phencyclidine Scrn (Not Detect) Ur Amphetamines Screen (Not Detect) U Benzodiazepines Scrn (Not Detect) Urine Cocaine Screen (Not Detect) U Marijuana (THC) Screen (Not Detect) Ethyl Alcohol mg/dL 08/12/22 08/12/22 08/12/22 Range/Units 14:12 14:12 14:12 WBC (4.8-10.8) X10*3/uL RBC (4.20-5.50) X10*6/uL Hgb (12.0-16.0) g/dl Hct (37.0-47.0) % MCV (80.0-98.0) fL MCH (27.0-33.0) pg MCHC (31.0-35.0) g/dl RDW (11.0-16.0) % Plt Count (160-400) X10*3/uL MPV (9.4-12.3) fL Immature Gran % (Auto) (0.0-0.4) % Neut % (Auto) (45-73) % Lymph % (Auto) (20-40) % [place] % (Auto) (2-11) % Eos % (Auto) (0-4) % Baso % (Auto) (0-2) % Lymph # (Auto) (1.2-4.9) X10*3/uL [place] # (Auto) (0.1-1.2) X10*3/uL Eos # (Auto) (0.0-0.4) X10*3/uL Baso # (Auto) (0.0-0.2) X10*3/uL Abs Immat Gran (auto) (0.00-0.03) X10*3/uL Absolute Neuts (auto) (2.0-8.3) x10*3/uL Absolute Nucleated RBC (0.0-0.012) X10*3/uL Nucleated RBC % (auto) (0.0-0.2) /100WBC PT 10.9 (10.0-13.1) SEC INR 1.0 (0.9-1.1) Sodium (135-145) mmol/L Potassium (3.3-5.1) mmol/L Chloride (96-108) mmol/L Carbon Dioxide (22-29) mmol/L Anion Gap (12-20) BUN (9-16) mg/dL Creatinine (0.5-1.4) mg/dL Estim Creat Clear Calc Estimated GFR POC Glucose (60-115) mg/dL Random Glucose (60-115) mg/dL Lactic Acid (0.5-2.0) mmol/L Calcium (8.4-10.2) mg/dL Magnesium (1.6-2.6) mg/dL Total Bilirubin (0.0-1.0) mg/dL Direct Bilirubin (0.0-0.5) mg/dL AST (5-31) U/L ALT (0-31) U/L Alkaline Phosphatase (39-117) U/L Troponin I High Sens 12.3 (<3.5-17.0) ng/L Total Protein (6.5-8.0) g/dL Albumin (3.5-5.0) g/dL Urine Color Urine Appearance Urine pH (5.0-9.0) Ur Specific [place] (1.005-1.025) Urine Protein (Neg-Trace) mg/dL Urine Glucose (UA) (Negative) mg/dL Urine Ketones (Negative) mg/dL Urine Blood (Negative) Urine Nitrite (Negative) Ur Leukocyte Esterase (Negative) Urine RBC (0-2) /HPF Urine WBC (0-5) /HPF Ur Squamous Epith Cells (0-2) /HPF Urine Bacteria (None Seen) Hyaline Casts (0-2) /LPF Urine Opiates Screen (Not Detect) Urine Fentanyl Screen (Not Detect) Ur Barbiturates Screen (Not Detect) Ur Phencyclidine Scrn (Not Detect) Ur Amphetamines Screen (Not Detect) U Benzodiazepines Scrn (Not Detect) Urine Cocaine Screen (Not Detect) U Marijuana (THC) Screen (Not Detect) Ethyl Alcohol < 10 mg/dL 08/12/22 08/12/22 08/12/22 Range/Units 14:22 14:35 14:35 WBC (4.8-10.8) X10*3/uL RBC (4.20-5.50) X10*6/uL Hgb (12.0-16.0) g/dl Hct (37.0-47.0) % MCV (80.0-98.0) fL MCH (27.0-33.0) pg MCHC (31.0-35.0) g/dl RDW (11.0-16.0) % Plt Count (160-400) X10*3/uL MPV (9.4-12.3) fL Immature Gran % (Auto) (0.0-0.4) % Neut % (Auto) (45-73) % Lymph % (Auto) (20-40) % [place] % (Auto) (2-11) % Eos % (Auto) (0-4) % Baso % (Auto) (0-2) % Lymph # (Auto) (1.2-4.9) X10*3/uL [place] # (Auto) (0.1-1.2) X10*3/uL Eos # (Auto) (0.0-0.4) X10*3/uL Baso # (Auto) (0.0-0.2) X10*3/uL Abs Immat Gran (auto) (0.00-0.03) X10*3/uL Absolute Neuts (auto) (2.0-8.3) x10*3/uL Absolute Nucleated RBC (0.0-0.012) X10*3/uL Nucleated RBC % (auto) (0.0-0.2) /100WBC PT (10.0-13.1) SEC INR (0.9-1.1) Sodium (135-145) mmol/L Potassium (3.3-5.1) mmol/L Chloride (96-108) mmol/L Carbon Dioxide (22-29) mmol/L Anion Gap (12-20) BUN (9-16) mg/dL Creatinine (0.5-1.4) mg/dL Estim Creat Clear Calc Estimated GFR POC Glucose (60-115) mg/dL Random Glucose (60-115) mg/dL Lactic Acid 1.2 (0.5-2.0) mmol/L Calcium (8.4-10.2) mg/dL Magnesium (1.6-2.6) mg/dL Total Bilirubin (0.0-1.0) mg/dL Direct Bilirubin (0.0-0.5) mg/dL AST (5-31) U/L ALT (0-31) U/L Alkaline Phosphatase (39-117) U/L Troponin I High Sens (<3.5-17.0) ng/L Total Protein (6.5-8.0) g/dL Albumin (3.5-5.0) g/dL Urine Color Yellow Urine Appearance Clear Urine pH 6.0 (5.0-9.0) Ur Specific [place] 1.010 (1.005-1.025) Urine Protein Negative (Neg-Trace) mg/dL Urine Glucose (UA) Negative (Negative) mg/dL Urine Ketones Negative (Negative) mg/dL Urine Blood Negative (Negative) Urine Nitrite Positive H (Negative) Ur Leukocyte Esterase Large (3+) H (Negative) Urine RBC 0-2 (0-2) /HPF Urine WBC >50 H (0-5) /HPF Ur Squamous Epith Cells 3-5 (0-2) /HPF Urine Bacteria 4+ (None Seen) Hyaline Casts 0-2 (0-2) /LPF Urine Opiates Screen Not Detected (Not Detect) Urine Fentanyl Screen Not Detected (Not Detect) Ur Barbiturates Screen Not Detected (Not Detect) Ur Phencyclidine Scrn Not Detected (Not Detect) Ur Amphetamines Screen Not Detected (Not Detect) U Benzodiazepines Scrn Not Detected (Not Detect) Urine Cocaine Screen Not Detected (Not Detect) U Marijuana (THC) Screen Not Detected (Not Detect) Ethyl Alcohol mg/dL Independent Interpretation I performed an independent interpretation of an: EKG Interpretation: Normal sinus rhythm, HR-80, no STEMI, OK/QRS/QTC is within normal limits. Radiology Impression Radiologist Impression: My interpretation is in agreement with radiology's impression. External Record Review External record reviewed: Office record, Outpatient record and Prior outpatient labs Discharge Plan Discharge Clinical Impression: UTI due to extended-spectrum beta lactamase (ESBL) producing Escherichia coli, Cholelithiasis Patient Disposition: Admitted As Inpatient Prescriptions: No Action lisinopril 20 mg tablet 20 mg PO DAILY Qty: 30 5RF miscellaneous medical supply Misc See Rx Instructions miscellaneous .COMPLEX 30 Days Qty: 3 5RF Rx Instructions: as directed; contours incontinent pad maximum 28 per pack miscellaneous medical supply Misc See Rx Instructions miscellaneous .COMPLEX 30 Days Qty: 1 5RF Rx Instructions: as directed; Use as needed aspirin 81 mg tablet,delayed release (DR/EC) 81 mg PO DAILY Qty: 30 5RF metoprolol succinate 25 mg tablet extended release 24 hr 75 mg PO DAILY Qty: 90 5RF tolterodine 4 mg capsule,extended release 24hr 4 mg PO DAILY 30 Days Qty: 30 1RF atorvastatin 80 mg tablet 80 mg PO BEDTIME 30 Days Qty: 30 3RF fluconazole 150 mg tablet 150 mg PO Q3D 6 Days Qty: 2 0RF fosfomycin tromethamine 3 gram packet 1 packet PO Q3D 9 Days Qty: 3 0RF clonidine 0.1 mg/24 hr patch weekly 1 patch transdermal QWEEK multivitamin with iron Tablet 1 tab PO DAILY zolpidem 5 mg tablet 5 mg PO DAILY quetiapine 50 mg tablet extended release 24 hr 100 mg PO DAILY raloxifene 60 mg tablet 60 mg PO DAILY amlodipine 5 mg tablet 5 mg PO DAILY nicotine 21 mg/24 hr patch 24 hour 1 patch topical DAILY nicotine 14 mg/24 hr patch 24 hour 1 patch topical DAILY estradiol 0.01 % (0.1 mg/gram) cream See Rx Instructions vaginal 3XW 30 Days Qty: 42.5 0RF Rx Instructions: vaginally 3 times a week; pea sized amount to urethra 3 times a week methenamine hippurate 1 gram tablet 1 g PO daily 90 Days Qty: 90 1RF ascorbic acid (vitamin C) 1,000 mg tablet 1,000 mg PO DAILY 90 Days Qty: 90 1RF
[2022-08-12 13:27] VITALS: BP 139/92; PULSE 89; RESP 18; TEMP 37; O2SAT 97; BMI 29.2
--- NOTE | 2022-08-12 13:30 | ECG_ITS ---
Test Reason : WEAKNESS Blood Pressure : / mmHG Vent. Rate : 080 BPM Atrial Rate : 080 BPM P-R Int : 180 ms QRS Dur : 070 ms QT Int : 386 ms P-R-T Axes : 049 -06 021 degrees QTc Int : 445 ms Normal sinus rhythm Normal ECG When compared with ECG of 01-MAR-2015 10:04, No significant change was found Referred By: Rabia Rasmussen Electronically Signed By:JOSE RAUL ARAGON MD
[2022-08-12 14:06] LABS: Glucose, Whole Blood 181 mg/dL (60-115)
[2022-08-12 14:18] LABS: MANUAL DIFF FLAG NO
[2022-08-12 14:21] LABS: Basophils Percent Auto 0.5 % (0-2); Eosinophils Absolute Auto 0.4 X10*3/uL (0.0-0.4); Eosinophils Percent Auto 5.8 % (0-4); Hematocrit 32.1 % (37.0-47.0); Hemoglobin 10.9 g/dl (12.0-16.0); Imm Gran Abs Auto 0.01 X10*3/uL (0.00-0.03); Imm Gran Pct Auto 0.2 % (0.0-0.4); Lymphocytes Absolute Auto 1.5 X10*3/uL (1.2-4.9); Lymphocytes Percent Auto 24.3 % (20-40); Mean Corpuscular Hemoglobin 32.7 pg (27.0-33.0); Mean Corpuscular Volume 96.4 fL (80.0-98.0); Mean Platelet Volume 9.6 fL (9.4-12.3); Monocytes Absolute Auto 0.4 X10*3/uL (0.1-1.2); Monocytes Percent Auto 6.5 % (2-11); Neutrophils Absolute Auto 3.9 x10*3/uL (2.0-8.3); Neutrophils Percent Auto 62.7 % (45-73); Platelet Count 220 X10*3/uL (160-400); Red Blood Count 3.33 X10*6/uL (4.20-5.50); White Blood Count 6.2 X10*3/uL (4.8-10.8)
[2022-08-12 14:29] LABS: Prothrombin Time 10.9 SEC (10.0-13.1)
[2022-08-12] MEDS: 0.9 % Sodium Chloride 1,000 ML 999 ML IV (14:35)
[2022-08-12 14:36] LABS: Alanine Aminotransferase 172 U/L (0-31); Albumin Level 3.8 g/dL (3.5-5.0); Alkaline Phosphatase 129 U/L (39-117); Anion Gap 14 (12-20); Aspartate Amino Transferase 66 U/L (5-31); Bilirubin Direct 0.2 mg/dL (0.0-0.5); Bilirubin Total 0.4 mg/dL (0.0-1.0); Blood Urea Nitrogen 45 mg/dL (9-16); Carbon Dioxide 24 mmol/L (22-29); Chloride 107 mmol/L (96-108); Creatinine Clr Calc Pharmacy 39.2; Estimated Glomerular Filt Rate 31; Glucose Random 172 mg/dL (60-115); Magnesium 2.2 mg/dL (1.6-2.6); Potassium 3.8 mmol/L (3.3-5.1); Sodium 141 mmol/L (135-145); Total Protein 6.7 g/dL (6.5-8.0)
[2022-08-12 14:41] LABS: Ethanol < 10 mg/dL
[2022-08-12 14:43] LABS: Lactic Acid 1.2 mmol/L (0.5-2.0)
[2022-08-12 14:44] LABS: Troponin-I High Sensitivity 12.3 ng/L (<3.5-17.0)
[2022-08-12 14:45] LABS: Appearance Urine Clear; Color Urine Yellow; Glucose Urine UA Negative (Negative); Leukocyte Esterase Urine Large (3+) (Negative); Nitrite Urine Positive (Negative); UMIC TRIGGER UACC YES; Urine Blood Negative (Negative); Urine Ketones Negative (Negative); Urine Protein Negative (Neg-Trace)
[2022-08-12 14:47] LABS: Bacteria Urine 4+ (None Seen); Hyaline Casts Urine 0-2 /LPF (0-2); RBC Urine 0-2 /HPF (0-2); UACC Culture Trigger YES; WBC Urine >50 /HPF (0-5)
[2022-08-12 14:53] LABS: Amphetamine Screen Urine Not Detected (Not Detect); Barbiturates, Urine Not Detected (Not Detect); Benzodiazepines Screen Urine Not Detected (Not Detect); Cannabinoid Screen Urine Not Detected (Not Detect); Cocaine Screen Urine Not Detected (Not Detect); Fentanyl, urine Not Detected (Not Detect); Opiate Screen Urine Not Detected (Not Detect); Phencyclidine Screen Urine Not Detected (Not Detect)
[2022-08-12 15:32] VITALS: BP 125/63; PULSE 73; RESP 16; TEMP 36.6; O2SAT 98
--- NOTE | 2022-08-12 16:37 | PM.IMHP ---
History of Present Illness Date of Service: 08/12/22 Chief Complaint: Confusion, urine frequency A 66 years old lady with PMH of CVA, ESBL UTIs, HLD, psoriasis , CKD II among others who presents with confusion and increase urine frequency. The patient reports that her therapist was concerned when she saw her today as she has been worsening for the last 3 days at least. reporting feeling weaker and more confused. She reports being treated for urine infection w ESBL on multiple occasions and she is working on getting an explanation for it with pending MRI studies by her urologist. Denies fever, chills, N\V\D, change in bowel habit or SOB. Admitted for further eval and treatment. Review of Systems Review of Systems: No fever, chills but has weakness No chest pain, palpitation No shortness of breath or coughing No abdominal pain, nausea or vomiting increase urinary frequency No any rash or wounds [facility] Medical History (Updated 08/13/22 @ 09:41 by Hortensia Poon MD) Bipolar 1 disorder CKD (chronic kidney disease) stage 2, GFR 60-89 ml/min COVID-19 vaccination declined Dyslipidemia Dyspareunia in female Elevated blood pressure reading in office with diagnosis of hypertension Essential hypertension Expressive aphasia Gestational diabetes History of CVA (cerebrovascular accident) History of CVA with residual deficit Hx of uterine prolapse Hypotonic bladder Impaired fasting glucose Osteoarthritis of knees, bilateral Osteoporosis Overactive bladder Psoriasis Rectocele Recurrent urinary tract infection Refused influenza vaccine Urge incontinence Urinary tract infection Family History Father Diabetes mellitus CHF (congestive heart failure) Mother FH: stomach cancer Crohn disease Son Mental health disorder Surgical History H/O rectocele repair History of Maloney urethropexy History of total left knee replacement (TKR) History of total right knee replacement (TKR) Hx of total vaginal hysterectomy Social History Household Members: Children Housing: Apartment Do you presently have visiting nurse or other home services: Yes Patient Tobacco Use Status: Former Tobacco user Quit Date: 07/22/22 Smoked in Last 30 Days: Yes e-Cigarette/Vaping Use: Never Used Patient Interested in Nicotine Replacement: No Patient Given Instructions on How to Stop Smoking: No Second Hand Smoke Exposure: No Use of substances other than those prescribed or required for medical reasons: No Currently Displaying Signs/Symptoms of Drug Intoxication Withdrawal: No Have you been hit, kicked, punched, or otherwise hurt by someone within the past year? If so, by whom?: No Do you feel safe in your current relationship?: Yes Is there a partner from a previous relationship who is making you feel unsafe now?: No Are you made to feel afraid or neglected: No Advance Directives: No Do you have thoughts of harming others: None Do you have a plan to hurt others: No Plan Recently lost weight without trying: No How much weight loss: Not applicable Eating poorly because of decreased appetite: No Nutrition screen score: 0 Nutrition Risks: No Nutritional Risk Patient : No : No Poor oral hygiene: No service: No Current occupational status: disabled Cognitive needs: No Hearing needs: No Vision needs: Yes Meds Allergies Allergy/AdvReac Type Severity Reaction Status Date / Time acetaminophen [Vicodin] Allergy Unknown tongue Verified 07/14/22 14:39 swells, hives on bottom of feet adhesive tape [Adhesive Tape] Allergy Unknown Rash Verified 07/29/22 14:48 hydrocodone [Vicodin] Allergy Unknown tongue Verified 07/14/22 14:39 swells, hives on bottom of feet latex [Latex] Allergy Unknown Rash, red Verified 07/29/22 14:48 blisters naproxen [Naprosyn] Allergy Unknown unknown Verified 07/14/22 14:39 penicillin V Allergy Unknown hives, rash Verified 07/14/22 14:39 Penicillins Allergy Unknown Rash, Verified 07/29/22 14:48 Nausea and Vomiting Sulfa (Sulfonamide Allergy Unknown Hives, rash Verified 07/29/22 14:48 Antibiotics) amphetamine [Adderall] AdvReac Unknown diarrhea Verified 07/29/22 14:48 dextroamphetamine [Adderall] AdvReac Unknown diarrhea Verified 07/29/22 14:48 morphine [MORPHINE] AdvReac Unknown Nausea and Verified 07/29/22 14:48 Vomiting phenobarbital [Phenobarbital] AdvReac Unknown extreme Verified 07/29/22 14:48 hyperactivity meperidine [From Demerol] AdvReac Vomiting Verified 07/29/22 14:48 Active Medications: Current Medications Pharmacy Consult (Consult Rx Perform Med Rec) 1 each MISCELLANE ONCE PRN PRN Reason: Consult order Home Medications Medication Instructions Recorded Confirmed Last Taken Type zolpidem 5 mg tablet 5 mg PO BEDTIME 03/19/21 08/12/22 Unknown History clonidine 0.1 mg/24 hr weekly 1 patch transdermal BANKS 11/12/21 08/12/22 Unknown History transdermal patch quetiapine 50 mg tablet,extended 100 mg PO BEDTIME 11/12/21 08/12/22 Unknown History release 24 hr amlodipine 5 mg tablet 5 mg PO DAILY 03/22/22 08/12/22 Unknown History chlorthalidone 50 mg tablet 50 mg PO DAILY 08/12/22 08/12/22 Unknown History Physical Exam Vital Signs and Narrative: Vital Signs: Last Vital Signs Temp 97.8 F 08/12/22 15:32 Pulse 73 08/12/22 15:32 Resp 16 08/12/22 15:32 BP 125/63 08/12/22 15:32 Pulse Ox 98 08/12/22 15:32 O2 Del Method Room Air 08/12/22 15:32 BMI result Body Mass Index 29.2 Const: Other: Constitutional : Awake, interactive, not in distress Neck : Normal inspection, Supple Cardiovascular : RRR, no JVP, no lower extremity edema Respiratory : good bilateral air entry, no crackles, wheezes or rhonchi Gastrointestinal: soft, lax, Normal bowel sounds, mild right pubic area tenderness Skin : Warm, Dry Neurological : Alert & oriented to self and place, No focal deficit Results Labs 08/12/22 14:12 08/12/22 14:12 Labs: Laboratory Results - last 24 hr 08/12/22 08/12/22 08/12/22 13:57 14:12 14:12 MCV 96.4 MCH 32.7 MCHC 34.0 RDW 12.0 Plt Count 220 MPV 9.6 Immature Gran % (Auto) 0.2 Neut % (Auto) 62.7 Lymph % (Auto) 24.3 [place] % (Auto) 6.5 Eos % (Auto) 5.8 H Baso % (Auto) 0.5 Lymph # (Auto) 1.5 [place] # (Auto) 0.4 Eos # (Auto) 0.4 Baso # (Auto) 0.0 Abs Immat Gran (auto) 0.01 Absolute Neuts (auto) 3.9 Absolute Nucleated RBC 0.000 Nucleated RBC % (auto) 0.0 PT INR Anion Gap 14 Estim Creat Clear Calc 39.2 Estimated GFR 31 POC Glucose 181 H Random Glucose 172 H Lactic Acid Calcium 9.0 Magnesium 2.2 Total Bilirubin 0.4 Direct Bilirubin 0.2 AST 66 H ALT 172 H Alkaline Phosphatase 129 H Troponin I High Sens Total Protein 6.7 Albumin 3.8 Urine Color Urine Appearance Urine pH Ur Specific [place] Urine Protein Urine Glucose (UA) Urine Ketones Urine Blood Urine Nitrite Ur Leukocyte Esterase Urine RBC Urine WBC Ur Squamous Epith Cells Urine Bacteria Hyaline Casts Urine Opiates Screen Urine Fentanyl Screen Ur Barbiturates Screen Ur Phencyclidine Scrn Ur Amphetamines Screen U Benzodiazepines Scrn Urine Cocaine Screen U Marijuana (THC) Screen Ethyl Alcohol 08/12/22 08/12/22 08/12/22 14:12 14:12 14:12 MCV MCH MCHC RDW Plt Count MPV Immature Gran % (Auto) Neut % (Auto) Lymph % (Auto) [place] % (Auto) Eos % (Auto) Baso % (Auto) Lymph # (Auto) [place] # (Auto) Eos # (Auto) Baso # (Auto) Abs Immat Gran (auto) Absolute Neuts (auto) Absolute Nucleated RBC Nucleated RBC % (auto) PT 10.9 INR 1.0 Anion Gap Estim Creat Clear Calc Estimated GFR POC Glucose Random Glucose Lactic Acid Calcium Magnesium Total Bilirubin Direct Bilirubin AST ALT Alkaline Phosphatase Troponin I High Sens 12.3 Total Protein Albumin Urine Color Urine Appearance Urine pH Ur Specific [place] Urine Protein Urine Glucose (UA) Urine Ketones Urine Blood Urine Nitrite Ur Leukocyte Esterase Urine RBC Urine WBC Ur Squamous Epith Cells Urine Bacteria Hyaline Casts Urine Opiates Screen Urine Fentanyl Screen Ur Barbiturates Screen Ur Phencyclidine Scrn Ur Amphetamines Screen U Benzodiazepines Scrn Urine Cocaine Screen U Marijuana (THC) Screen Ethyl Alcohol < 10 08/12/22 08/12/22 08/12/22 14:22 14:35 14:35 MCV MCH MCHC RDW Plt Count MPV Immature Gran % (Auto) Neut % (Auto) Lymph % (Auto) [place] % (Auto) Eos % (Auto) Baso % (Auto) Lymph # (Auto) [place] # (Auto) Eos # (Auto) Baso # (Auto) Abs Immat Gran (auto) Absolute Neuts (auto) Absolute Nucleated RBC Nucleated RBC % (auto) PT INR Anion Gap Estim Creat Clear Calc Estimated GFR POC Glucose Random Glucose Lactic Acid 1.2 Calcium Magnesium Total Bilirubin Direct Bilirubin AST ALT Alkaline Phosphatase Troponin I High Sens Total Protein Albumin Urine Color Yellow Urine Appearance Clear Urine pH 6.0 Ur Specific [place] 1.010 Urine Protein Negative Urine Glucose (UA) Negative Urine Ketones Negative Urine Blood Negative Urine Nitrite Positive H Ur Leukocyte Esterase Large (3+) H Urine RBC 0-2 Urine WBC >50 H Ur Squamous Epith Cells 3-5 Urine Bacteria 4+ Hyaline Casts 0-2 Urine Opiates Screen Not Detected Urine Fentanyl Screen Not Detected Ur Barbiturates Screen Not Detected Ur Phencyclidine Scrn Not Detected Ur Amphetamines Screen Not Detected U Benzodiazepines Scrn Not Detected Urine Cocaine Screen Not Detected U Marijuana (THC) Screen Not Detected Ethyl Alcohol Imaging Radiologist's Impressions: Impressions Abdomen Ultrasound 08/12/22 15:50 IMPRESSION: Gallbladder impacted with stones. The degree of acoustic shadowing limits evaluation. Findings are equivocal for acute cholecystitis. Advise clinical correlation. Assessment and Plan (1) Acute kidney injury superimposed on CKD: Status: Acute (2) Toxic metabolic encephalopathy: Status: Acute (3) Urinary tract infection: Qualifiers: Urinary tract infection type: site unspecified Status: Acute (4) Transaminitis: Status: Acute Plan A 66 years old lady with PMH of CVA, ESBL UTIs, HLD, psoriasis , CKD II among others who presents with confusion and increase urine frequency. Toxic metabolic encephalopathy likely 2/2 UTI, DAVONTE treat infection correct urine function reorientation UTI w hx of ESBL E.Coli cover with Meropenem ID consult Pending OP MRI DAVONTE on CKDII Cr up to 1.6, BUN 40s likely prerenal IVF, urine studies monitor I\O, BMP Transaminitis Likely related to DAVONTE and infection, not due to sepsis Monitor response to treatment and follow LFT Hx CVA Continue statin, Aspirin HTN Amlodipine, Chlorathalidone, Lisinopril and Metoprolol DVT PPx Heparin The patient will need at least 2 overnight hospital stay for treatment of urine infection pending improvement in mentation, final cultures and ID eval. Time Spent With Patient Time: Total time managing care of this patient today ____ minutes. Quality Stroke Does the patient have a stroke diagnosis?: No VTE Prior VTE?: No VTE Risk Level:: Medical - moderate - high VTE Device Contraindication: Treatment Not Indicated VTE Drug Contraindication: N/A - Med Ordered
--- NOTE | 2022-08-12 17:05 | PC.NURSE ---
patient ambulating to and from the bathroom with strong steady gait
[2022-08-12 17:28] VITALS: BP 123/63; PULSE 68; RESP 16; TEMP 36.6; O2SAT 96
[2022-08-12] MEDS: 0.9 % Sodium Chloride 1,000 ML 80 ML IVCONT ×2 (17:42→19:59)
[2022-08-12] MEDS: Heparin Sodium,Porcine 5,000 UNIT/ML VIAL 5000 UNIT SUBCUT (17:42)
--- NOTE | 2022-08-12 17:49 | PC.NURSE ---
nurse to nurse report called to Hortencia RN
[2022-08-12 18:29] VITALS: BP 137/78; PULSE 91; RESP 18; TEMP 36.3; O2SAT 98
--- NOTE | 2022-08-12 18:55 | PHA.MEDREC ---
Pharmacy Consult ? Medication Reconciliation Pharmacy has completed the medication reconciliation. Patient knew all medications
[2022-08-13 00:12] VITALS: BP 139/72; PULSE 71; RESP 16; TEMP 36.5; O2SAT 98
[2022-08-13] MEDS: QUEtiapine Fumarate 100 MG TABLET PO ×2 (00:16→21:09)
[2022-08-13] MEDS: Zolpidem Tartrate 5 MG TABLET PO ×2 (00:16→21:09)
[2022-08-13] MEDS: Heparin Sodium,Porcine 5,000 UNIT/ML VIAL 5000 UNIT SUBCUT ×2 (05:01→16:17)
[2022-08-13 06:29] LABS: Hematocrit 30.2 % (37.0-47.0); Hemoglobin 10.1 g/dl (12.0-16.0); Mean Corpuscular HGB Conc 33.4 g/dl (31.0-35.0); Mean Corpuscular Hemoglobin 32.4 pg (27.0-33.0); Mean Corpuscular Volume 96.8 fL (80.0-98.0); Mean Platelet Volume 9.9 fL (9.4-12.3); Platelet Count 213 X10*3/uL (160-400); Red Blood Count 3.12 X10*6/uL (4.20-5.50); Red Cell Distribution Width 11.9 % (11.0-16.0); White Blood Count 5.8 X10*3/uL (4.8-10.8)
[2022-08-13 06:36] LABS: Anion Gap 13 (12-20); Blood Urea Nitrogen 36 mg/dL (9-16); Calcium 9.2 mg/dL (8.4-10.2); Carbon Dioxide 24 mmol/L (22-29); Chloride 109 mmol/L (96-108); Creatinine Clr Calc Pharmacy 45.6; Estimated Glomerular Filt Rate 37; Glucose Random 90 mg/dL (60-115); Potassium 3.6 mmol/L (3.3-5.1); Sodium 142 mmol/L (135-145)
[2022-08-13 07:03] VITALS: BP 130/75; PULSE 70; RESP 20; TEMP 36.2; O2SAT 98
[2022-08-13] MEDS: lisinopriL 20 MG TABLET PO (07:41)
[2022-08-13] MEDS: Ascorbic Acid 500 MG TABLET 1000 MG PO (07:42)
[2022-08-13] MEDS: Aspirin Enteric Coated 81 MG TABLET.DR PO (07:42)
[2022-08-13] MEDS: Tolterodine Tartrate LA 4 MG CAP.ER.24H PO (07:42)
[2022-08-13] MEDS: amLODIPine Besylate 5 MG TABLET PO (07:43)
[2022-08-13] MEDS: Metoprolol Succinate ER 25 MG TAB.ER.24H 75 MG PO (07:43)
[2022-08-13 08:31] LABS: Alanine Aminotransferase 125 U/L (0-31); Albumin Level 3.6 g/dL (3.5-5.0); Alkaline Phosphatase 106 U/L (39-117); Aspartate Amino Transferase 40 U/L (5-31); Bilirubin Direct 0.2 mg/dL (0.0-0.5); Bilirubin Total 0.4 mg/dL (0.0-1.0); Total Protein 6.2 g/dL (6.5-8.0)
[2022-08-13] MEDS: hydroCHLOROthiazide 50 MG TABLET PO (08:50)
[2022-08-13] MEDS: 0.9 % Sodium Chloride 1,000 ML 80 ML IVCONT ×3 (08:51→21:09)
--- NOTE | 2022-08-13 09:41 | P.PNIM_ITS ---
Subjective Subjective Date of Service: 08/13/22 Interval History: Seen and evaluated still having urine frequency LFT trended down mental status improving no other overnight events Review of Systems Review of Systems: Yes all other systems are reviewed and are negative Physical Exam Vital Signs: Vital Signs: Last Vital Signs Temp 97.2 F 08/13/22 07:03 Pulse 70 08/13/22 07:03 Resp 20 08/13/22 07:03 BP 130/75 08/13/22 07:03 Pulse Ox 98 08/13/22 07:03 O2 Del Method Room Air 08/13/22 07:03 BMI result Body Mass Index 29.2 Const: Other: Constitutional : Awake, interactive, not in distress Neck : Normal inspection, Supple Cardiovascular : RRR, no JVP, no lower extremity edema Respiratory : good bilateral air entry, no crackles, wheezes or rhonchi Gastrointestinal: soft, lax, Normal bowel sounds, mild right pubic area tenderness Skin : Warm, Dry Neurological : Alert & oriented to self and place, No focal deficit Objective Data Active Medications Amlodipine Besylate (Amlodipine Besylate 5 Mg Tablet) 5 mg PO DAILY [facility]; Protocol Last Admin: 08/13/22 07:43 Dose: 5 mg Documented By: BENJAMÍN Ascorbic Acid (Ascorbic Acid 500 Mg Tablet) 1,000 mg PO DAILY [facility] Last Admin: 08/13/22 07:42 Dose: 1,000 mg Documented By: BENJAMÍN Aspirin (Aspirin Enteric Coated 81 Mg Tablet.) 81 mg PO DAILY [facility] Last Admin: 08/13/22 07:42 Dose: 81 mg Documented By: BENJAMÍN Atorvastatin Calcium (Atorvastatin Calcium 80 Mg Tablet) 80 mg PO BEDTIME [facility] Clonidine (Clonidine 0.1 Mg Patch.Tdwk) mg TRANSDERMA BANKS [facility]; Protocol Diphenhydramine HCl (Diphenhydramine Hcl 50 Mg/Ml Vial) 25 mg IVPUSH Q4H PRN PRN Reason: Allergic Reaction Heparin Sodium (Porcine) (Heparin Sodium,Porcine 5,000 Unit/Ml Vial) 5,000 unit SUBCUT Q12H [facility] Last Admin: 08/13/22 05:01 Dose: 5,000 unit Documented By: LISETTE Hydrochlorothiazide (Hydrochlorothiazide 50 Mg Tablet) 50 mg PO DAILY [facility] Last Admin: 08/13/22 08:50 Dose: 50 mg Documented By: BENJAMÍN Sodium Chloride (Ns) 1,000 mls @ 80 mls/hr IVCONT .[id number] [facility] Last Admin: 08/13/22 08:51 Dose: 80 mls/hr Documented By: BENJAMÍN Meropenem 1 gm/ Sodium (Chloride) 100 mls @ 200 mls/hr IV Q12H [facility] Last Infusion: 08/13/22 05:35 Dose: 0 mls/hr Documented By: LISETTE Lisinopril (Lisinopril 20 Mg Tablet) 20 mg PO DAILY [facility]; Protocol Last Admin: 08/13/22 07:41 Dose: 20 mg Documented By: BENJAMÍN Metoprolol Succinate (Metoprolol Succinate Er 25 Mg Tab.Er.24h) 75 mg PO DAILY [facility]; Protocol Last Admin: 08/13/22 07:43 Dose: 75 mg Documented By: BENJAMÍN Ondansetron HCl (Ondansetron Hcl 4 Mg/2 Ml Vial) 4 mg IVPUSH Q8H PRN PRN Reason: Nausea and Vomiting Pharmacy Consult (Consult Rx Perform Med Rec) 1 each MISCELLANE ONCE PRN PRN Reason: Consult order Quetiapine Fumarate (Quetiapine Fumarate 100 Mg Tablet) 100 mg PO BEDTIME [facility] Last Admin: 08/13/22 00:16 Dose: 100 mg Documented By: WILL Sodium Chloride (0.9 % Sodium Chloride Flush 3 Ml Syringe) 3 ml IVFLUSH QSHIFT [facility] Last Admin: 08/13/22 07:54 Dose: Not Given Documented By: BENJAMÍN Non-Admin Reason: IV Running Tolterodine Tartrate (Tolterodine Tartrate La 4 Mg Cap.Er.24h) 4 mg PO DAILY [facility] Last Admin: 08/13/22 07:42 Dose: 4 mg Documented By: BENJAMÍN Zolpidem Tartrate (Zolpidem Tartrate 5 Mg Tablet) 5 mg PO BEDTIME [facility] Last Admin: 08/13/22 00:16 Dose: 5 mg Documented By: WILL Labs 08/13/22 05:47 08/13/22 05:47 Labs: Laboratory Results - last 24 hr 08/12/22 08/12/22 08/12/22 13:57 14:12 14:12 MCV 96.4 MCH 32.7 MCHC 34.0 RDW 12.0 Plt Count 220 MPV 9.6 Immature Gran % (Auto) 0.2 Neut % (Auto) 62.7 Lymph % (Auto) 24.3 [place] % (Auto) 6.5 Eos % (Auto) 5.8 H Baso % (Auto) 0.5 Lymph # (Auto) 1.5 [place] # (Auto) 0.4 Eos # (Auto) 0.4 Baso # (Auto) 0.0 Abs Immat Gran (auto) 0.01 Absolute Neuts (auto) 3.9 Absolute Nucleated RBC 0.000 Nucleated RBC % (auto) 0.0 PT INR Anion Gap 14 Estim Creat Clear Calc 39.2 Estimated GFR 31 POC Glucose 181 H Random Glucose 172 H Lactic Acid Calcium 9.0 Magnesium 2.2 Total Bilirubin 0.4 Direct Bilirubin 0.2 AST 66 H ALT 172 H Alkaline Phosphatase 129 H Troponin I High Sens Total Protein 6.7 Albumin 3.8 Urine Color Urine Appearance Urine pH Ur Specific [place] Urine Protein Urine Glucose (UA) Urine Ketones Urine Blood Urine Nitrite Ur Leukocyte Esterase Urine RBC Urine WBC Ur Squamous Epith Cells Urine Bacteria Hyaline Casts Ur Random Sodium Urine Creatinine Urine Opiates Screen Urine Fentanyl Screen Ur Barbiturates Screen Ur Phencyclidine Scrn Ur Amphetamines Screen U Benzodiazepines Scrn Urine Cocaine Screen U Marijuana (THC) Screen Ethyl Alcohol 08/12/22 08/12/22 08/12/22 14:12 14:12 14:12 MCV MCH MCHC RDW Plt Count MPV Immature Gran % (Auto) Neut % (Auto) Lymph % (Auto) [place] % (Auto) Eos % (Auto) Baso % (Auto) Lymph # (Auto) [place] # (Auto) Eos # (Auto) Baso # (Auto) Abs Immat Gran (auto) Absolute Neuts (auto) Absolute Nucleated RBC Nucleated RBC % (auto) PT 10.9 INR 1.0 Anion Gap Estim Creat Clear Calc Estimated GFR POC Glucose Random Glucose Lactic Acid Calcium Magnesium Total Bilirubin Direct Bilirubin AST ALT Alkaline Phosphatase Troponin I High Sens 12.3 Total Protein Albumin Urine Color Urine Appearance Urine pH Ur Specific [place] Urine Protein Urine Glucose (UA) Urine Ketones Urine Blood Urine Nitrite Ur Leukocyte Esterase Urine RBC Urine WBC Ur Squamous Epith Cells Urine Bacteria Hyaline Casts Ur Random Sodium Urine Creatinine Urine Opiates Screen Urine Fentanyl Screen Ur Barbiturates Screen Ur Phencyclidine Scrn Ur Amphetamines Screen U Benzodiazepines Scrn Urine Cocaine Screen U Marijuana (THC) Screen Ethyl Alcohol < 10 08/12/22 08/12/22 08/12/22 14:22 14:35 14:35 MCV MCH MCHC RDW Plt Count MPV Immature Gran % (Auto) Neut % (Auto) Lymph % (Auto) [place] % (Auto) Eos % (Auto) Baso % (Auto) Lymph # (Auto) [place] # (Auto) Eos # (Auto) Baso # (Auto) Abs Immat Gran (auto) Absolute Neuts (auto) Absolute Nucleated RBC Nucleated RBC % (auto) PT INR Anion Gap Estim Creat Clear Calc Estimated GFR POC Glucose Random Glucose Lactic Acid 1.2 Calcium Magnesium Total Bilirubin Direct Bilirubin AST ALT Alkaline Phosphatase Troponin I High Sens Total Protein Albumin Urine Color Yellow Urine Appearance Clear Urine pH 6.0 Ur Specific [place] 1.010 Urine Protein Negative Urine Glucose (UA) Negative Urine Ketones Negative Urine Blood Negative Urine Nitrite Positive H Ur Leukocyte Esterase Large (3+) H Urine RBC 0-2 Urine WBC >50 H Ur Squamous Epith Cells 3-5 Urine Bacteria 4+ Hyaline Casts 0-2 Ur Random Sodium Urine Creatinine Urine Opiates Screen Not Detected Urine Fentanyl Screen Not Detected Ur Barbiturates Screen Not Detected Ur Phencyclidine Scrn Not Detected Ur Amphetamines Screen Not Detected U Benzodiazepines Scrn Not Detected Urine Cocaine Screen Not Detected U Marijuana (THC) Screen Not Detected Ethyl Alcohol 08/12/22 08/13/22 08/13/22 14:38 05:47 05:47 MCV 96.8 MCH 32.4 MCHC 33.4 RDW 11.9 Plt Count 213 MPV 9.9 Immature Gran % (Auto) Neut % (Auto) Lymph % (Auto) [place] % (Auto) Eos % (Auto) Baso % (Auto) Lymph # (Auto) [place] # (Auto) Eos # (Auto) Baso # (Auto) Abs Immat Gran (auto) Absolute Neuts (auto) Absolute Nucleated RBC 0.000 Nucleated RBC % (auto) 0.0 PT INR Anion Gap 13 Estim Creat Clear Calc 45.6 Estimated GFR 37 POC Glucose Random Glucose 90 Lactic Acid Calcium 9.2 Magnesium Total Bilirubin 0.4 Direct Bilirubin 0.2 AST 40 H ALT 125 H Alkaline Phosphatase 106 Troponin I High Sens Total Protein 6.2 L Albumin 3.6 Urine Color Urine Appearance Urine pH Ur Specific [place] Urine Protein Urine Glucose (UA) Urine Ketones Urine Blood Urine Nitrite Ur Leukocyte Esterase Urine RBC Urine WBC Ur Squamous Epith Cells Urine Bacteria Hyaline Casts Ur Random Sodium 66.0 Urine Creatinine 52.40 Urine Opiates Screen Urine Fentanyl Screen Ur Barbiturates Screen Ur Phencyclidine Scrn Ur Amphetamines Screen U Benzodiazepines Scrn Urine Cocaine Screen U Marijuana (THC) Screen Ethyl Alcohol Assessment and Plan (1) Transaminitis: Status: Acute (2) Urinary tract infection: Status: Acute (3) Toxic metabolic encephalopathy: Status: Acute (4) Acute kidney injury superimposed on CKD: Status: Acute Plan A 66 years old lady with PMH of CVA, ESBL UTIs, HLD, psoriasis , CKD II among others who presents with confusion and increase urine frequency. Toxic metabolic encephalopathy likely 2/2 UTI, DAVONTE improving treat infection correct urine function reorientation UTI w hx of ESBL E.Coli cover with Meropenem pending cultures pending ID consult Pending OP MRI DAVONTE on CKDII Cr improved to 1.4, BUN 40s likely prerenal continue IVF, urine studies monitor I\O, BMP Transaminitis Likely related to DAVONTE and infection, not due to sepsis trending down, follow LFT Hx CVA Continue statin, Aspirin HTN Amlodipine, Chlorathalidone, Lisinopril and Metoprolol DVT PPx Heparin The patient will need overnight hospital stay for treatment of urine infection pending improvement in mentation, final cultures and ID eval. Time Spent With Patient Time: Total time managing care of this patient today ____ minutes. Quality Stroke Does the patient have a stroke diagnosis?: No VTE Prior VTE?: No VTE Risk Level:: Medical - moderate - high VTE Device Contraindication: Treatment Not Indicated VTE Drug Contraindication: N/A - Med Ordered
--- NOTE | 2022-08-13 11:30 | MHC.CM.PN ---
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
--- NOTE | 2022-08-13 15:04 | W.PM.IDCN ---
History of Present Illness Data of Consult Service Date: 08/13/22 Requesting physician: Hortensia Poon Primary Care Provider: Terese Silvestre CNP HPI Reason for consult: recurrent UTI,h/o bacterial resistance She presents with feeling nauseous and dizzy for a week. She also has 3-4/10 RLQ pain for three dayss. She says she feels foggy but denies fever or chills. She says she gets recurrent UTIs and is seeing Dr Salazar and she thinks she is supposed to get MRI abdomen. She claims she has multiple drug allergies. Urine culture is more than 100,000. Urine culture 05/2022 has multiple resistance but is sensitive to Ertapenem. Review of Systems Review of Systems: Yes all other systems are reviewed and are negative ON LICENSE OF [facility] Past Medical History Medical History (Updated 08/13/22 @ 15:15 by Marly Pérez MD) Bipolar 1 disorder CKD (chronic kidney disease) stage 2, GFR 60-89 ml/min COVID-19 vaccination declined Dyslipidemia Dyspareunia in female Elevated blood pressure reading in office with diagnosis of hypertension Essential hypertension Expressive aphasia Gestational diabetes History of CVA (cerebrovascular accident) History of CVA with residual deficit Hx of uterine prolapse Hypotonic bladder Impaired fasting glucose Multiple allergies Osteoarthritis of knees, bilateral Osteoporosis Overactive bladder Psoriasis Rectocele Recurrent urinary tract infection Refused influenza vaccine Urge incontinence Urinary tract infection Family History Family History Father Diabetes mellitus CHF (congestive heart failure) Mother FH: stomach cancer Crohn disease Son Mental health disorder Family history: reviewed and not pertinent Surgical History Surgical History H/O rectocele repair History of Maloney urethropexy History of total left knee replacement (TKR) History of total right knee replacement (TKR) Hx of total vaginal hysterectomy Social History Social History Household Members: Children Housing: Apartment Do you presently have visiting nurse or other home services: Yes Patient Tobacco Use Status: Former Tobacco user Quit Date: 07/22/22 Smoked in Last 30 Days: Yes e-Cigarette/Vaping Use: Never Used Patient Interested in Nicotine Replacement: No Patient Given Instructions on How to Stop Smoking: No Second Hand Smoke Exposure: No Use of substances other than those prescribed or required for medical reasons: No Currently Displaying Signs/Symptoms of Drug Intoxication Withdrawal: No Have you been hit, kicked, punched, or otherwise hurt by someone within the past year? If so, by whom?: No Do you feel safe in your current relationship?: Yes Is there a partner from a previous relationship who is making you feel unsafe now?: No Are you made to feel afraid or neglected: No Advance Directives: No Do you have thoughts of harming others: None Do you have a plan to hurt others: No Plan Recently lost weight without trying: No How much weight loss: Not applicable Eating poorly because of decreased appetite: No Nutrition screen score: 0 Nutrition Risks: No Nutritional Risk Patient : No : No Poor oral hygiene: No service: No Current occupational status: disabled Cognitive needs: No Hearing needs: No Vision needs: Yes Meds Allergies Allergy/AdvReac Type Severity Reaction Status Date / Time acetaminophen [Vicodin] Allergy Unknown tongue Verified 07/14/22 14:39 swells, hives on bottom of feet adhesive tape [Adhesive Tape] Allergy Unknown Rash Verified 07/29/22 14:48 hydrocodone [Vicodin] Allergy Unknown tongue Verified 07/14/22 14:39 swells, hives on bottom of feet latex [Latex] Allergy Unknown Rash, red Verified 07/29/22 14:48 blisters naproxen [Naprosyn] Allergy Unknown unknown Verified 07/14/22 14:39 penicillin V Allergy Unknown hives, rash Verified 07/14/22 14:39 Penicillins Allergy Unknown Rash, Verified 07/29/22 14:48 Nausea and Vomiting Sulfa (Sulfonamide Allergy Unknown Hives, rash Verified 07/29/22 14:48 Antibiotics) amphetamine [Adderall] AdvReac Unknown diarrhea Verified 07/29/22 14:48 dextroamphetamine [Adderall] AdvReac Unknown diarrhea Verified 07/29/22 14:48 morphine [MORPHINE] AdvReac Unknown Nausea and Verified 07/29/22 14:48 Vomiting phenobarbital [Phenobarbital] AdvReac Unknown extreme Verified 07/29/22 14:48 hyperactivity meperidine [From Demerol] AdvReac Vomiting Verified 07/29/22 14:48 Active Medications: Current Medications Amlodipine Besylate (Amlodipine Besylate 5 Mg Tablet) 5 mg PO DAILY [facility]; Protocol Last Admin: 08/13/22 07:43 Dose: 5 mg Ascorbic Acid (Ascorbic Acid 500 Mg Tablet) 1,000 mg PO DAILY [facility] Last Admin: 08/13/22 07:42 Dose: 1,000 mg Aspirin (Aspirin Enteric Coated 81 Mg Tablet.Dr) 81 mg PO DAILY [facility] Last Admin: 08/13/22 07:42 Dose: 81 mg Atorvastatin Calcium (Atorvastatin Calcium 80 Mg Tablet) 80 mg PO BEDTIME [facility] Clonidine (Clonidine 0.1 Mg Patch.Tdwk) mg TRANSDERMA BANKS [facility]; Protocol Diphenhydramine HCl (Diphenhydramine Hcl 50 Mg/Ml Vial) 25 mg IVPUSH Q4H PRN PRN Reason: Allergic Reaction Heparin Sodium (Porcine) (Heparin Sodium,Porcine 5,000 Unit/Ml Vial) 5,000 unit SUBCUT Q12H [facility] Last Admin: 08/13/22 05:01 Dose: 5,000 unit Hydrochlorothiazide (Hydrochlorothiazide 50 Mg Tablet) 50 mg PO DAILY [facility] Last Admin: 08/13/22 08:50 Dose: 50 mg Sodium Chloride (Ns) 1,000 mls @ 80 mls/hr IVCONT .[id number] [facility] Last Admin: 08/13/22 08:51 Dose: 80 mls/hr Meropenem 1 gm/ Sodium (Chloride) 100 mls @ 200 mls/hr IV Q12H [facility] Last Infusion: 08/13/22 05:35 Dose: Infused Lisinopril (Lisinopril 20 Mg Tablet) 20 mg PO DAILY [facility]; Protocol Last Admin: 08/13/22 07:41 Dose: 20 mg Metoprolol Succinate (Metoprolol Succinate Er 25 Mg Tab.Er.24h) 75 mg PO DAILY [facility]; Protocol Last Admin: 08/13/22 07:43 Dose: 75 mg Ondansetron HCl (Ondansetron Hcl 4 Mg/2 Ml Vial) 4 mg IVPUSH Q8H PRN PRN Reason: Nausea and Vomiting Pharmacy Consult (Consult Rx Perform Med Rec) 1 each MISCELLANE ONCE PRN PRN Reason: Consult order Quetiapine Fumarate (Quetiapine Fumarate 100 Mg Tablet) 100 mg PO BEDTIME [facility] Last Admin: 08/13/22 00:16 Dose: 100 mg Sodium Chloride (0.9 % Sodium Chloride Flush 3 Ml Syringe) 3 ml IVFLUSH QSHIFT [facility] Last Admin: 08/13/22 14:08 Dose: Not Given Tolterodine Tartrate (Tolterodine Tartrate La 4 Mg Cap.Er.24h) 4 mg PO DAILY [facility] Last Admin: 08/13/22 07:42 Dose: 4 mg Zolpidem Tartrate (Zolpidem Tartrate 5 Mg Tablet) 5 mg PO BEDTIME [facility] Last Admin: 08/13/22 00:16 Dose: 5 mg Home Medications Medication Instructions Recorded Confirmed Last Taken Type zolpidem 5 mg tablet 5 mg PO BEDTIME 03/19/21 08/12/22 Unknown History clonidine 0.1 mg/24 hr weekly 1 patch transdermal BANKS 11/12/21 08/12/22 Unknown History transdermal patch quetiapine 50 mg tablet,extended 100 mg PO BEDTIME 11/12/21 08/12/22 Unknown History release 24 hr amlodipine 5 mg tablet 5 mg PO DAILY 03/22/22 08/12/22 Unknown History chlorthalidone 50 mg tablet 50 mg PO DAILY 08/12/22 08/12/22 Unknown History Physical Exam Vital Signs: Vital Signs: Last Vital Signs Temp 97.2 F 08/13/22 07:03 Pulse 70 08/13/22 07:03 Resp 20 08/13/22 07:03 BP 130/75 08/13/22 07:03 Pulse Ox 98 08/13/22 07:03 O2 Del Method Room Air 08/13/22 07:03 BMI result Body Mass Index 29.2 Const: General: cooperative HEENT: Head: Yes normal to inspection Face and sinus: Yes normal facial exam Mouth: Normal oral and palatal mucosa present Teeth and gingiva: dentition normal Eyes: General: appearance normal, both eyes and all related structures Pupils: Equal, round and reactive pupils present Resp: Effort & Inspection: normal respiratory effort Cardio: Rate: regular rate Rhythm: regular rhythm GI: Palpation (GI): Soft to palpation and nontender : General: Yes no CVA tenderness Back/Spine/Pelvis: Back: no CVA tenderness Skin: General skin exam: no rashes or lesions noted Neuro: General: moves all extremities Cranial nerves: Yes Equal, round and reactive pupils present Extrem: General: Yes normal to inspection Psych: Appearance: grossly normal Results Labs 08/13/22 05:47 08/13/22 05:47 Labs: Short CBC 08/13/22 Range/Units 05:47 WBC 5.8 (4.8-10.8) X10*3/uL Hgb 10.1 L (12.0-16.0) g/dl Hct 30.2 L (37.0-47.0) % Plt Count 213 (160-400) X10*3/uL BMP 08/13/22 05:47 Sodium 142 Potassium 3.6 Chloride 109 H Carbon Dioxide 24 BUN 36 H Creatinine 1.42 H Calcium 9.2 Liver Function 08/13/22 Range/Units 05:47 Total Bilirubin 0.4 (0.0-1.0) mg/dL Direct Bilirubin 0.2 (0.0-0.5) mg/dL AST 40 H (5-31) U/L ALT 125 H (0-31) U/L Alkaline Phosphatase 106 (39-117) U/L Albumin 3.6 (3.5-5.0) g/dL Microbiology Microbiology Results: Microbiology 08/12/22 Unknown Urine clean catch - Urine guerin top Urine Culture - Preliminary Gram negative annetta Assessment and Plan (1) Urinary tract infection: Qualifiers: Urinary tract infection type: site unspecified Status: Acute (2) Toxic metabolic encephalopathy: Status: Acute She quite possibly has E coli with resistance again and may be colonized with intermittent infections. She complains of multiple drug allergies (3) Acute kidney injury superimposed on CKD: Status: Acute (4) Multiple allergies: Status: Acute Plan Continue Merem pending above results. She may need daily Ertapenem for 14 days with weekly CBC and creatinine. Time Spent With Patient Time: Total time managing care of this patient today ____ minutes.
[2022-08-13 15:09] VITALS: BP 119/68; PULSE 72; RESP 18; TEMP 36.6; O2SAT 99
[2022-08-13 19:03] VITALS: BP 131/81; PULSE 78; RESP 18; TEMP 36.1; O2SAT 97
[2022-08-13] MEDS: Atorvastatin Calcium 80 MG TABLET PO (21:09)
[2022-08-14 04:00] VITALS: BP 136/63; PULSE 75; RESP 16; TEMP 36.1; O2SAT 98
[2022-08-14] MEDS: Heparin Sodium,Porcine 5,000 UNIT/ML VIAL 5000 UNIT SUBCUT ×2 (04:09→15:35)
[2022-08-14 06:03] LABS: Anion Gap 12 (12-20); Blood Urea Nitrogen 25 mg/dL (9-16); Calcium 9.1 mg/dL (8.4-10.2); Carbon Dioxide 23 mmol/L (22-29); Chloride 110 mmol/L (96-108); Creatinine Clr Calc Pharmacy 61.6; Estimated Glomerular Filt Rate 53; Glucose Random 124 mg/dL (60-115); Potassium 3.8 mmol/L (3.3-5.1); Sodium 141 mmol/L (135-145)
[2022-08-14 07:22] VITALS: BP 135/67; PULSE 79; RESP 18; TEMP 35.7; O2SAT 97
[2022-08-14 07:34] VITALS: BP 115/58; PULSE 93; RESP 18; TEMP 36; O2SAT 64
[2022-08-14] MEDS: Ascorbic Acid 500 MG TABLET 1000 MG PO (08:00)
[2022-08-14] MEDS: lisinopriL 20 MG TABLET PO (08:01)
[2022-08-14] MEDS: amLODIPine Besylate 5 MG TABLET PO (08:01)
[2022-08-14] MEDS: Aspirin Enteric Coated 81 MG TABLET.DR PO (08:01)
[2022-08-14] MEDS: Metoprolol Succinate ER 25 MG TAB.ER.24H 75 MG PO (08:01)
[2022-08-14] MEDS: Tolterodine Tartrate LA 4 MG CAP.ER.24H PO (08:01)
[2022-08-14] MEDS: hydroCHLOROthiazide 50 MG TABLET PO (08:01)
--- NOTE | 2022-08-14 10:13 | P.PNIM_ITS ---
Subjective Subjective Date of Service: 08/14/22 Interval History: Seen and evaluated improved overall with increase energy and moving in her room mental status improving no other overnight events Review of Systems No fever, chills No chest pain, palpitation No shortness of breath or coughing No abdominal pain, nausea or vomiting less urinary frequency No any rash or wounds Physical Exam Vital Signs: Vital Signs: Last Vital Signs Temp 96.8 F 08/14/22 07:34 Pulse 93 08/14/22 07:34 Resp 18 08/14/22 07:34 BP 115/58 L 08/14/22 07:34 Pulse Ox 64 L 08/14/22 07:34 O2 Del Method Room Air 08/14/22 07:34 BMI result Body Mass Index 29.2 Const: Other: Constitutional : Awake, interactive, not in distress Neck : Normal inspection, Supple Cardiovascular : RRR, no JVP, no lower extremity edema Respiratory : good bilateral air entry, no crackles, wheezes or rhonchi Gastrointestinal: soft, lax, Normal bowel sounds, mild right pubic area tenderness Skin : Warm, Dry Neurological : Alert & oriented to self and place, No focal deficit , baseline speech aphasia Objective Data Active Medications Amlodipine Besylate (Amlodipine Besylate 5 Mg Tablet) 5 mg PO DAILY [facility]; Protocol Last Admin: 08/14/22 08:01 Dose: 5 mg Documented By: BENJAMÍN Ascorbic Acid (Ascorbic Acid 500 Mg Tablet) 1,000 mg PO DAILY [facility] Last Admin: 08/14/22 08:00 Dose: 1,000 mg Documented By: BENJAMÍN Aspirin (Aspirin Enteric Coated 81 Mg Tablet.) 81 mg PO DAILY [facility] Last Admin: 08/14/22 08:01 Dose: 81 mg Documented By: BENJAMÍN Atorvastatin Calcium (Atorvastatin Calcium 80 Mg Tablet) 80 mg PO BEDTIME [facility] Last Admin: 08/13/22 21:09 Dose: 80 mg Documented By: STEPHANIE Clonidine (Clonidine 0.1 Mg Patch.Tdwk) mg TRANSDERMA BANKS [facility]; Protocol Diphenhydramine HCl (Diphenhydramine Hcl 50 Mg/Ml Vial) 25 mg IVPUSH Q4H PRN PRN Reason: Allergic Reaction Heparin Sodium (Porcine) (Heparin Sodium,Porcine 5,000 Unit/Ml Vial) 5,000 unit SUBCUT Q12H [facility] Last Admin: 08/14/22 04:09 Dose: 5,000 unit Documented By: STANLEY Hydrochlorothiazide (Hydrochlorothiazide 50 Mg Tablet) 50 mg PO DAILY [facility] Last Admin: 08/14/22 08:01 Dose: 50 mg Documented By: BENJAMÍN Meropenem 1 gm/ Sodium (Chloride) 100 mls @ 200 mls/hr IV Q12H [facility] Last Infusion: 08/14/22 07:16 Dose: 200 mls/hr Documented By: BENJAMÍN Lisinopril (Lisinopril 20 Mg Tablet) 20 mg PO DAILY [facility]; Protocol Last Admin: 08/14/22 08:01 Dose: 20 mg Documented By: BENJAMÍN Metoprolol Succinate (Metoprolol Succinate Er 25 Mg Tab.Er.24h) 75 mg PO DAILY [facility]; Protocol Last Admin: 08/14/22 08:01 Dose: 75 mg Documented By: BENJAMÍN Ondansetron HCl (Ondansetron Hcl 4 Mg/2 Ml Vial) 4 mg IVPUSH Q8H PRN PRN Reason: Nausea and Vomiting Pharmacy Consult (Consult Rx Perform Med Rec) 1 each MISCELLANE ONCE PRN PRN Reason: Consult order Quetiapine Fumarate (Quetiapine Fumarate 100 Mg Tablet) 100 mg PO BEDTIME [facility] Last Admin: 08/13/22 21:09 Dose: 100 mg Documented By: STEPHANIE Sodium Chloride (0.9 % Sodium Chloride Flush 3 Ml Syringe) 3 ml IVFLUSH QSHIFT [facility] Last Admin: 08/14/22 07:59 Dose: Not Given Documented By: BENJAMÍN Non-Admin Reason: IV Running Tolterodine Tartrate (Tolterodine Tartrate La 4 Mg Cap.Er.24h) 4 mg PO DAILY [facility] Last Admin: 08/14/22 08:01 Dose: 4 mg Documented By: BENJAMÍN Zolpidem Tartrate (Zolpidem Tartrate 5 Mg Tablet) 5 mg PO BEDTIME [facility] Last Admin: 08/13/22 21:09 Dose: 5 mg Documented By: STEPHANIE Labs 08/13/22 05:47 08/14/22 05:16 Labs: Laboratory Results - last 24 hr 08/14/22 05:16 Anion Gap 12 Estim Creat Clear Calc 61.6 Estimated GFR 53 Random Glucose 124 H Calcium 9.1 Microbiology Microbiology Results: Microbiology 08/12/22 Unknown Urine Culture - Final Urine clean catch - Urine guerin top Escherichia coli 08/12/22 14:22 Blood Culture - Preliminary Blood - Venous No growth after 24 hours. 08/12/22 14:22 Blood Culture - Preliminary Blood - Venous No growth after 24 hours. Assessment and Plan (1) Transaminitis: Status: Acute (2) Urinary tract infection: Status: Acute (3) Toxic metabolic encephalopathy: Status: Acute (4) Acute kidney injury superimposed on CKD: Status: Acute Plan A 66 years old lady with PMH of CVA, ESBL UTIs, HLD, psoriasis , CKD II among others who presents with confusion and increase urine frequency. Toxic metabolic encephalopathy likely 2/2 UTI, DAVONTE improving back to baseline with treatment of infection and improved kidney function reorientation UTI w ESBL E.Coli cover with Meropenem Urine Cx growing same bacteria ID consult , 2 weeks of Ertapenem Pending OP MRI To place Midline by Tuesday, outpatient Abx DAVONTE on CKDII Cr improved to 1 DC IVF monitor I\O, BMP Transaminitis Likely related to DAVONTE and infection, not due to sepsis trended down Hx CVA Continue statin, Aspirin HTN Amlodipine, Chlorathalidone, Lisinopril and Metoprolol DVT PPx Heparin The patient will need overnight hospital stay for treatment of urine infection pending Midline placement and Abx arrangements for outpatient. Time Spent With Patient Time: Total time managing care of this patient today ____ minutes. Quality Stroke Does the patient have a stroke diagnosis?: No VTE Prior VTE?: No VTE Risk Level:: Medical - moderate - high VTE Device Contraindication: Treatment Not Indicated VTE Drug Contraindication: N/A - Med Ordered
[2022-08-14 15:21] VITALS: BP 138/70; PULSE 75; RESP 18; TEMP 37; O2SAT 100
[2022-08-14] MEDS: 0.9 % Sodium Chloride Flush 3 ML SYRINGE IVFLUSH ×2 (15:35→20:44)
[2022-08-14 19:40] VITALS: BP 130/62; PULSE 60; RESP 18; TEMP 36.6; O2SAT 97
[2022-08-14] MEDS: Atorvastatin Calcium 80 MG TABLET PO (20:42)
[2022-08-14] MEDS: Zolpidem Tartrate 5 MG TABLET PO (20:42)
[2022-08-14] MEDS: QUEtiapine Fumarate 100 MG TABLET PO (20:43)
[2022-08-15 03:37] VITALS: BP 140/88; PULSE 83; RESP 18; TEMP 36.4; O2SAT 97
[2022-08-15] MEDS: Heparin Sodium,Porcine 5,000 UNIT/ML VIAL 5000 UNIT SUBCUT ×2 (05:27→17:04)
[2022-08-15] MEDS: 0.9 % Sodium Chloride Flush 3 ML SYRINGE IVFLUSH ×3 (07:44→21:04)
[2022-08-15 08:00] VITALS: BP 140/67; PULSE 80; RESP 18; TEMP 36.6; O2SAT 97
[2022-08-15] MEDS: Metoprolol Succinate ER 25 MG TAB.ER.24H 75 MG PO (09:17)
[2022-08-15] MEDS: lisinopriL 20 MG TABLET PO (09:17)
[2022-08-15] MEDS: Aspirin Enteric Coated 81 MG TABLET.DR PO (09:17)
[2022-08-15] MEDS: Tolterodine Tartrate LA 4 MG CAP.ER.24H PO (09:17)
[2022-08-15] MEDS: hydroCHLOROthiazide 50 MG TABLET PO (09:17)
[2022-08-15] MEDS: Ascorbic Acid 500 MG TABLET 1000 MG PO (09:18)
[2022-08-15] MEDS: amLODIPine Besylate 5 MG TABLET PO (09:18)
--- NOTE | 2022-08-15 09:31 | P.PNIM_ITS ---
Subjective Subjective Date of Service: 08/15/22 Interval History: Seen and evaluated improved overall mental status improved no other overnight events Review of Systems No fever, chills No chest pain, palpitation No shortness of breath or coughing No abdominal pain, nausea or vomiting less urinary frequency No any rash or wounds Physical Exam Vital Signs: Vital Signs: Last Vital Signs Temp 97.8 F 08/15/22 08:00 Pulse 80 08/15/22 08:00 Resp 18 08/15/22 08:00 BP 140/67 H 08/15/22 08:00 Pulse Ox 97 08/15/22 08:00 O2 Del Method Room Air 08/15/22 08:00 BMI result Body Mass Index 29.2 Const: Other: Constitutional : Awake, interactive, not in distress Neck : Normal inspection, Supple Cardiovascular : RRR, no JVP, no lower extremity edema Respiratory : good bilateral air entry, no crackles, wheezes or rhonchi Gastrointestinal: soft, lax, Normal bowel sounds, mild right pubic area tenderness Skin : Warm, Dry Neurological : Alert & oriented to self and place, No focal deficit , baseline speech aphasia Objective Data Active Medications Amlodipine Besylate (Amlodipine Besylate 5 Mg Tablet) 5 mg PO DAILY [facility]; Protocol Last Admin: 08/15/22 09:18 Dose: 5 mg Documented By: BALJEET Ascorbic Acid (Ascorbic Acid 500 Mg Tablet) 1,000 mg PO DAILY [facility] Last Admin: 08/15/22 09:18 Dose: 1,000 mg Documented By: BALJEET Aspirin (Aspirin Enteric Coated 81 Mg Tablet.) 81 mg PO DAILY [facility] Last Admin: 08/15/22 09:17 Dose: 81 mg Documented By: BALJEET Atorvastatin Calcium (Atorvastatin Calcium 80 Mg Tablet) 80 mg PO BEDTIME [facility] Last Admin: 08/14/22 20:42 Dose: 80 mg Documented By: ANDREA Clonidine (Clonidine 0.1 Mg Patch.Tdwk) 0.1 mg TRANSDERMA BANKS [facility]; Protocol Diphenhydramine HCl (Diphenhydramine Hcl 50 Mg/Ml Vial) 25 mg IVPUSH Q4H PRN PRN Reason: Allergic Reaction Heparin Sodium (Porcine) (Heparin Sodium,Porcine 5,000 Unit/Ml Vial) 5,000 unit SUBCUT Q12H [facility] Last Admin: 08/15/22 05:27 Dose: 5,000 unit Documented By: ANDREA Hydrochlorothiazide (Hydrochlorothiazide 50 Mg Tablet) 50 mg PO DAILY [facility] Last Admin: 08/15/22 09:17 Dose: 50 mg Documented By: BALJEET Meropenem 1 gm/ Sodium (Chloride) 100 mls @ 200 mls/hr IV Q12H [facility] Last Infusion: 08/15/22 06:21 Dose: 0 mls/hr Documented By: ANDREA Lisinopril (Lisinopril 20 Mg Tablet) 20 mg PO DAILY [facility]; Protocol Last Admin: 08/15/22 09:17 Dose: 20 mg Documented By: BALJEET Metoprolol Succinate (Metoprolol Succinate Er 25 Mg Tab.Er.24h) 75 mg PO DAILY [facility]; Protocol Last Admin: 08/15/22 09:17 Dose: 75 mg Documented By: BALJEET Ondansetron HCl (Ondansetron Hcl 4 Mg/2 Ml Vial) 4 mg IVPUSH Q8H PRN PRN Reason: Nausea and Vomiting Pharmacy Consult (Consult Rx Perform Med Rec) 1 each MISCELLANE ONCE PRN PRN Reason: Consult order Quetiapine Fumarate (Quetiapine Fumarate 100 Mg Tablet) 100 mg PO BEDTIME [facility] Last Admin: 08/14/22 20:43 Dose: 100 mg Documented By: ANDREA Sodium Chloride (0.9 % Sodium Chloride Flush 3 Ml Syringe) 3 ml IVFLUSH QSHIFT [facility] Last Admin: 08/15/22 07:44 Dose: 3 ml Documented By: ETHAN Tolterodine Tartrate (Tolterodine Tartrate La 4 Mg Cap.Er.24h) 4 mg PO DAILY [facility] Last Admin: 08/15/22 09:17 Dose: 4 mg Documented By: BALJEET Zolpidem Tartrate (Zolpidem Tartrate 5 Mg Tablet) 5 mg PO BEDTIME [facility] Last Admin: 08/14/22 20:42 Dose: 5 mg Documented By: ANDREA Labs 08/13/22 05:47 08/14/22 05:16 Microbiology Microbiology Results: Microbiology 08/12/22 14:22 Blood Culture - Preliminary Blood - Venous No growth after 48 hours. 08/12/22 14:22 Blood Culture - Preliminary Blood - Venous No growth after 48 hours. 08/12/22 Unknown Urine Culture - Final Urine clean catch - Urine guerin top Escherichia coli Assessment and Plan (1) Urinary tract infection: Status: Acute (2) Transaminitis: Status: Acute (3) Toxic metabolic encephalopathy: Status: Acute (4) UTI due to extended-spectrum beta lactamase (ESBL) producing Escherichia coli: Status: Acute Plan A 66 years old lady with PMH of CVA, ESBL UTIs, HLD, psoriasis , CKD II among others who presents with confusion and increase urine frequency. Toxic metabolic encephalopathy likely 2/2 UTI, DAVONTE improving back to baseline with treatment of infection and improved kidney function reorientation UTI w ESBL E.Coli cover with Meropenem Urine Cx growing same bacteria ID consult , 2 weeks of Ertapenem Pending OP MRI To place Midline by Tuesday, outpatient Abx DAVONTE on CKDII Cr improved to 1 DC IVF monitor I\O, BMP Transaminitis Likely related to DAVONTE and infection, not due to sepsis trended down Hx CVA Continue statin, Aspirin HTN Amlodipine, Chlorathalidone, Lisinopril and Metoprolol DVT PPx Heparin The patient will need overnight hospital stay for treatment of urine infection pending Midline placement and Abx arrangements for outpatient. Time Spent With Patient Time: Total time managing care of this patient today ____ minutes. Quality Stroke Does the patient have a stroke diagnosis?: No VTE Prior VTE?: No VTE Risk Level:: Medical - moderate - high VTE Device Contraindication: Treatment Not Indicated VTE Drug Contraindication: N/A - Med Ordered
[2022-08-15] MEDS: cloNIDine 0.1 MG PATCH.TDWK TRANSDERMA (10:43)
[2022-08-15 15:31] VITALS: BP 156/74; PULSE 84; RESP 18; TEMP 37; O2SAT 98
[2022-08-15 20:00] VITALS: BP 156/70; PULSE 68; RESP 18; TEMP 36.1; O2SAT 98
[2022-08-15] MEDS: QUEtiapine Fumarate 100 MG TABLET PO (21:05)
[2022-08-15] MEDS: Atorvastatin Calcium 80 MG TABLET PO (21:06)
[2022-08-15] MEDS: Zolpidem Tartrate 5 MG TABLET PO (21:06)
[2022-08-16 04:00] VITALS: BP 140/79; PULSE 18; RESP 18; TEMP 35.8
[2022-08-16] MEDS: Heparin Sodium,Porcine 5,000 UNIT/ML VIAL 5000 UNIT SUBCUT ×2 (04:40→16:10)
[2022-08-16 04:50] VITALS: BP 140/79; PULSE 85; RESP 18; TEMP 37.6; O2SAT 96
[2022-08-16 05:28] LABS: Prothrombin Time 11.6 SEC (10.0-13.1)
[2022-08-16 07:53] VITALS: BP 136/72; PULSE 84; RESP 17; TEMP 36.6; O2SAT 97
[2022-08-16] MEDS: amLODIPine Besylate 5 MG TABLET PO (09:00)
[2022-08-16] MEDS: Tolterodine Tartrate LA 4 MG CAP.ER.24H PO (09:00)
[2022-08-16] MEDS: Aspirin Enteric Coated 81 MG TABLET.DR PO (09:00)
[2022-08-16] MEDS: hydroCHLOROthiazide 50 MG TABLET PO (09:00)
[2022-08-16] MEDS: Metoprolol Succinate ER 25 MG TAB.ER.24H 75 MG PO (09:00)
[2022-08-16] MEDS: lisinopriL 20 MG TABLET PO (09:00)
[2022-08-16] MEDS: Ascorbic Acid 500 MG TABLET 1000 MG PO (09:01)
[2022-08-16] MEDS: 0.9 % Sodium Chloride Flush 3 ML SYRINGE IVFLUSH ×3 (09:01→21:44)
--- NOTE | 2022-08-16 09:59 | P.CONNP_ITS ---
History of Present Illness Reason for Consult Consult date: 08/16/22 Chief Complaint Chief complaint: confusion, urine frequency History of Present Illness Narrative: 66 years old lady with PMH of CVA, ESBL UTIs, HLD, psoriasis , CKD II among others who presents with weakness, confusion and increase urine frequency. She had urine infection w ESBL on multiple occasions . She was planning to have MRI studies by her urologist. At presentation she denied fever, chills, N\V\D, change in bowel habit or SOB. She was found to have toxic metabolic encephalopathy and was admitted for further evaluation and treatment. She was found to have ESBL UTI and had been getting antibiotics. She is in need of a PICC line. She also had DAVONTE which has improved. Nephrology has been consulted to assist in her clinical care during her current hospital stay. Review of Systems Review of Systems Yes all other systems are reviewed and are negative [facility] Past Medical History Medical History (Updated 08/13/22 @ 15:15 by Marly Pérez MD) Bipolar 1 disorder CKD (chronic kidney disease) stage 2, GFR 60-89 ml/min COVID-19 vaccination declined Dyslipidemia Dyspareunia in female Elevated blood pressure reading in office with diagnosis of hypertension Essential hypertension Expressive aphasia Gestational diabetes History of CVA (cerebrovascular accident) History of CVA with residual deficit Hx of uterine prolapse Hypotonic bladder Impaired fasting glucose Multiple allergies Osteoarthritis of knees, bilateral Osteoporosis Overactive bladder Psoriasis Rectocele Recurrent urinary tract infection Refused influenza vaccine Urge incontinence Urinary tract infection Family History Family History Father Diabetes mellitus CHF (congestive heart failure) Mother FH: stomach cancer Crohn disease Son Mental health disorder Family history: reviewed and not pertinent Surgical History Surgical History H/O rectocele repair History of Maloney urethropexy History of total left knee replacement (TKR) History of total right knee replacement (TKR) Hx of total vaginal hysterectomy Social History Social History Household Members: Children Housing: Apartment Do you presently have visiting nurse or other home services: Yes Patient Tobacco Use Status: Former Tobacco user Quit Date: 07/22/22 Smoked in Last 30 Days: Yes e-Cigarette/Vaping Use: Never Used Patient Interested in Nicotine Replacement: No Patient Given Instructions on How to Stop Smoking: No Second Hand Smoke Exposure: No Use of substances other than those prescribed or required for medical reasons: No Currently Displaying Signs/Symptoms of Drug Intoxication Withdrawal: No Have you been hit, kicked, punched, or otherwise hurt by someone within the past year? If so, by whom?: No Do you feel safe in your current relationship?: Yes Is there a partner from a previous relationship who is making you feel unsafe now?: No Are you made to feel afraid or neglected: No Advance Directives: No Do you have thoughts of harming others: None Do you have a plan to hurt others: No Plan Recently lost weight without trying: No How much weight loss: Not applicable Eating poorly because of decreased appetite: No Nutrition screen score: 0 Nutrition Risks: No Nutritional Risk Patient : No : No Poor oral hygiene: No service: No Current occupational status: disabled Cognitive needs: No Hearing needs: No Vision needs: Yes Meds Allergies Allergy/AdvReac Type Severity Reaction Status Date / Time acetaminophen [Vicodin] Allergy Unknown tongue Verified 07/14/22 14:39 swells, hives on bottom of feet adhesive tape [Adhesive Tape] Allergy Unknown Rash Verified 07/29/22 14:48 hydrocodone [Vicodin] Allergy Unknown tongue Verified 07/14/22 14:39 swells, hives on bottom of feet latex [Latex] Allergy Unknown Rash, red Verified 07/29/22 14:48 blisters naproxen [Naprosyn] Allergy Unknown unknown Verified 07/14/22 14:39 penicillin V Allergy Unknown hives, rash Verified 07/14/22 14:39 Penicillins Allergy Unknown Rash, Verified 07/29/22 14:48 Nausea and Vomiting Sulfa (Sulfonamide Allergy Unknown Hives, rash Verified 07/29/22 14:48 Antibiotics) amphetamine [Adderall] AdvReac Unknown diarrhea Verified 07/29/22 14:48 dextroamphetamine [Adderall] AdvReac Unknown diarrhea Verified 07/29/22 14:48 morphine [MORPHINE] AdvReac Unknown Nausea and Verified 07/29/22 14:48 Vomiting phenobarbital [Phenobarbital] AdvReac Unknown extreme Verified 07/29/22 14:48 hyperactivity meperidine [From Demerol] AdvReac Vomiting Verified 07/29/22 14:48 Active Medications: Current Medications Amlodipine Besylate (Amlodipine Besylate 5 Mg Tablet) 5 mg PO DAILY [facility]; Protocol Last Admin: 08/16/22 09:00 Dose: 5 mg Ascorbic Acid (Ascorbic Acid 500 Mg Tablet) 1,000 mg PO DAILY [facility] Last Admin: 08/16/22 09:01 Dose: 1,000 mg Aspirin (Aspirin Enteric Coated 81 Mg Tablet.Dr) 81 mg PO DAILY [facility] Last Admin: 08/16/22 09:00 Dose: 81 mg Atorvastatin Calcium (Atorvastatin Calcium 80 Mg Tablet) 80 mg PO BEDTIME [facility] Last Admin: 08/15/22 21:06 Dose: 80 mg Clonidine (Clonidine 0.1 Mg Patch.Tdwk) 0.1 mg TRANSDERMA BANKS [facility]; Protocol Last Admin: 08/15/22 10:43 Dose: 0.1 mg Diphenhydramine HCl (Diphenhydramine Hcl 50 Mg/Ml Vial) 25 mg IVPUSH Q4H PRN PRN Reason: Allergic Reaction Heparin Sodium (Porcine) (Heparin Sodium,Porcine 5,000 Unit/Ml Vial) 5,000 unit SUBCUT Q12H [facility] Last Admin: 08/16/22 04:40 Dose: 5,000 unit Hydrochlorothiazide (Hydrochlorothiazide 50 Mg Tablet) 50 mg PO DAILY [facility] Last Admin: 08/16/22 09:00 Dose: 50 mg Hydrocortisone (Hydrocortisone 1 % Cream 28.35 Gm Tube) 1 appl TOPICAL BID [facility]; Protocol Meropenem 1 gm/ Sodium (Chloride) 100 mls @ 200 mls/hr IV Q12H [facility] Last Infusion: 08/16/22 06:30 Dose: Infused Lisinopril (Lisinopril 20 Mg Tablet) 20 mg PO DAILY [facility]; Protocol Last Admin: 08/16/22 09:00 Dose: 20 mg Metoprolol Succinate (Metoprolol Succinate Er 25 Mg Tab.Er.24h) 75 mg PO DAILY [facility]; Protocol Last Admin: 08/16/22 09:00 Dose: 75 mg Ondansetron HCl (Ondansetron Hcl 4 Mg/2 Ml Vial) 4 mg IVPUSH Q8H PRN PRN Reason: Nausea and Vomiting Pharmacy Consult (Consult Rx Perform Med Rec) 1 each MISCELLANE ONCE PRN PRN Reason: Consult order Quetiapine Fumarate (Quetiapine Fumarate 100 Mg Tablet) 100 mg PO BEDTIME [facility] Last Admin: 08/15/22 21:05 Dose: 100 mg Sodium Chloride (0.9 % Sodium Chloride Flush 3 Ml Syringe) 3 ml IVFLUSH QSHIFT [facility] Last Admin: 08/16/22 09:01 Dose: 3 ml Tolterodine Tartrate (Tolterodine Tartrate La 4 Mg Cap.Er.24h) 4 mg PO DAILY [facility] Last Admin: 08/16/22 09:00 Dose: 4 mg Zolpidem Tartrate (Zolpidem Tartrate 5 Mg Tablet) 5 mg PO BEDTIME [facility] Last Admin: 08/15/22 21:06 Dose: 5 mg Home Medications Medication Instructions Recorded Confirmed Last Taken Type zolpidem 5 mg tablet 5 mg PO BEDTIME 03/19/21 08/12/22 Unknown History clonidine 0.1 mg/24 hr weekly 1 patch transdermal [facility] 11/12/21 08/12/22 Unknown History transdermal patch quetiapine 50 mg tablet,extended 100 mg PO BEDTIME 11/12/21 08/12/22 Unknown History release 24 hr amlodipine 5 mg tablet 5 mg PO DAILY 03/22/22 08/12/22 Unknown History chlorthalidone 50 mg tablet 50 mg PO DAILY 08/12/22 08/12/22 Unknown History Physical Exam Vital Signs: Last Vital Signs Temp 97.9 F 08/16/22 07:53 Pulse 84 08/16/22 07:53 Resp 17 08/16/22 07:53 BP 136/72 08/16/22 07:53 Pulse Ox 97 08/16/22 07:53 O2 Del Method Room Air 08/16/22 07:53 BMI result Body Mass Index 29.2 Const General: no acute distress Eyes EOM: EOMs intact bilaterally Neck Neck: Yes supple Resp Auscultation: diminished lung sounds Cardio Rate: regular rate GI Palpation (GI): Soft to palpation Neuro General: moves all extremities Results Lab Results 08/13/22 05:47 08/14/22 05:16 Lab results: Chemistry 08/14/22 05:16 Sodium 141 Potassium 3.8 Carbon Dioxide 23 BUN 25 H Creatinine 1.05 Calcium 9.1 Assessment and Plan (1) Acute kidney injury superimposed on CKD: Status: Acute Plan She had DAVONTE due to compromise in renal perfusion due to ESBL UTI Has mild CKD at baseline; No ACEI/ARB/Diuretics for now Needs to maintain good hydration; No NSAID's Can have PICC line/midline for antibiotic administration Needs office follow up in 2-3 months when D/Joselito Time Spent With Patient Time: Total time managing care of this patient today ____ minutes. Procedures Date of Service Date of Service: 08/16/22
--- NOTE | 2022-08-16 12:05 | HO.MIDLINE ---
Midline Insertion MIDLINE INSERTION Diagnosis: [UTI-ESBL] Indication: [IV ANTIBX FOR 2 WEEKS] Pertinent Labs: [REVIEWED] Technique: Using sterile technique including cap and mask, glove and drape, the RIGHT arm was prepped and draped in the usual sterile fashion of full barrier technique with CHG. Using ultrasound guidance, RIGHT BASILIC vein access was obtainedON THE FIRST ATTEMPT BY LINDSAY KNUTSON RN. [id number] ST NON-PASV MIDLINE was positioned. The procedure was performed in 272. Ultrasound was used to document vein patency and for needle entry. A formal ultrasound picture was recorded. [employer] has released the line for use and it is currently dressed with a StatLock, Tegaderm, and CHG disc. Verification has been performed for blood return and line patency. Arm Circumference: 30CM Equipment:[employer] POWERGLIDE ST MIDLINE Catheter Type: POWERGLIDE ST NON-PASV CATHETER [id number] Lot #: [id number]
[2022-08-16] MEDS: Hydrocortisone 1 % Cream 28.35 GM TUBE 1 APPL TOPICAL ×2 (12:40→21:38)
--- NOTE | 2022-08-16 13:16 | P.PNIM_ITS ---
Subjective Subjective Date of Service: 08/16/22 Interval History: Seen and evaluated improved overall Midline in place no other overnight events Review of Systems No fever, chills No chest pain, palpitation No shortness of breath or coughing No abdominal pain, nausea or vomiting less urinary frequency No any rash or wounds Physical Exam Vital Signs: Vital Signs: Last Vital Signs Temp 97.9 F 08/16/22 07:53 Pulse 84 08/16/22 07:53 Resp 17 08/16/22 07:53 BP 136/72 08/16/22 07:53 Pulse Ox 97 08/16/22 07:53 O2 Del Method Room Air 08/16/22 07:53 BMI result Body Mass Index 29.2 Const: Other: Constitutional : Awake, interactive, not in distress Neck : Normal inspection, Supple Cardiovascular : RRR, no JVP, no lower extremity edema Respiratory : good bilateral air entry, no crackles, wheezes or rhonchi Gastrointestinal: soft, lax, Normal bowel sounds, mild right pubic area tenderness Skin : Warm, Dry Neurological : Alert & oriented to self and place, No focal deficit , baseline speech aphasia Objective Data Active Medications Amlodipine Besylate (Amlodipine Besylate 5 Mg Tablet) 5 mg PO DAILY [facility]; Protocol Last Admin: 08/16/22 09:00 Dose: 5 mg Documented By: ALFIE Ascorbic Acid (Ascorbic Acid 500 Mg Tablet) 1,000 mg PO DAILY [facility] Last Admin: 08/16/22 09:01 Dose: 1,000 mg Documented By: ALFIE Aspirin (Aspirin Enteric Coated 81 Mg Tablet.) 81 mg PO DAILY [facility] Last Admin: 08/16/22 09:00 Dose: 81 mg Documented By: ALFIE Atorvastatin Calcium (Atorvastatin Calcium 80 Mg Tablet) 80 mg PO BEDTIME [facility] Last Admin: 08/15/22 21:06 Dose: 80 mg Documented By: ILAN Clonidine (Clonidine 0.1 Mg Patch.Tdwk) 0.1 mg TRANSDERMA BANKS [facility]; Protocol Last Admin: 08/15/22 10:43 Dose: 0.1 mg Documented By: ETHAN Heparin Sodium (Porcine) 50 (units/ Sodium Chloride 5 ml) 0 units IVFLUSH TID [facility] Diphenhydramine HCl (Diphenhydramine Hcl 50 Mg/Ml Vial) 25 mg IVPUSH Q4H PRN PRN Reason: Allergic Reaction Heparin Sodium (Porcine) (Heparin Sodium,Porcine 5,000 Unit/Ml Vial) 5,000 unit SUBCUT Q12H [facility] Last Admin: 08/16/22 04:40 Dose: 5,000 unit Documented By: ILAN Hydrochlorothiazide (Hydrochlorothiazide 50 Mg Tablet) 50 mg PO DAILY [facility] Last Admin: 08/16/22 09:00 Dose: 50 mg Documented By: ALFIE Hydrocortisone (Hydrocortisone 1 % Cream 28.35 Gm Tube) 1 appl TOPICAL BID [facility]; Protocol Last Admin: 08/16/22 12:40 Dose: 1 appl Documented By: ALFIE Meropenem 1 gm/ Sodium (Chloride) 100 mls @ 200 mls/hr IV Q12H [facility] Last Infusion: 08/16/22 06:30 Dose: 0 mls/hr Documented By: ILAN Lisinopril (Lisinopril 20 Mg Tablet) 20 mg PO DAILY [facility]; Protocol Last Admin: 08/16/22 09:00 Dose: 20 mg Documented By: ALFIE Metoprolol Succinate (Metoprolol Succinate Er 25 Mg Tab.Er.24h) 75 mg PO DAILY [facility]; Protocol Last Admin: 08/16/22 09:00 Dose: 75 mg Documented By: ALFIE Ondansetron HCl (Ondansetron Hcl 4 Mg/2 Ml Vial) 4 mg IVPUSH Q8H PRN PRN Reason: Nausea and Vomiting Pharmacy Consult (Consult Rx Perform Med Rec) 1 each MISCELLANE ONCE PRN PRN Reason: Consult order Quetiapine Fumarate (Quetiapine Fumarate 100 Mg Tablet) 100 mg PO BEDTIME [facility] Last Admin: 08/15/22 21:05 Dose: 100 mg Documented By: ILAN Sodium Chloride (0.9 % Sodium Chloride Flush 3 Ml Syringe) 3 ml IVFLUSH QSHIFT [facility] Last Admin: 08/16/22 09:01 Dose: 3 ml Documented By: ALFIE Tolterodine Tartrate (Tolterodine Tartrate La 4 Mg Cap.Er.24h) 4 mg PO DAILY [facility] Last Admin: 08/16/22 09:00 Dose: 4 mg Documented By: ALFIE Zolpidem Tartrate (Zolpidem Tartrate 5 Mg Tablet) 5 mg PO BEDTIME [facility] Last Admin: 08/15/22 21:06 Dose: 5 mg Documented By: ILAN Labs 08/13/22 05:47 08/14/22 05:16 Labs: Laboratory Results - last 24 hr 08/16/22 05:07 PT 11.6 INR 1.0 Assessment and Plan (1) Multiple allergies: Status: Acute (2) Urinary tract infection: Status: Acute (3) Toxic metabolic encephalopathy: Status: Acute (4) Acute kidney injury superimposed on CKD: Status: Acute Plan A 66 years old lady with PMH of CVA, ESBL UTIs, HLD, psoriasis , CKD II among others who presents with confusion and increase urine frequency. Toxic metabolic encephalopathy likely 2/2 UTI, DAVONTE improving back to baseline with treatment of infection and improved kidney function reorientation UTI w ESBL E.Coli cover with Meropenem Urine Cx growing same bacteria ID consult , 2 weeks of Ertapenem Pending OP MRI Midline placed, pending outpatient Abx arrangements DAVONTE on CKDII Cr improved to 1 DC IVF monitor I\O, BMP Transaminitis Likely related to DAVONTE and infection, not due to sepsis trended down Hx CVA Continue statin, Aspirin HTN Amlodipine, Chlorathalidone, Lisinopril and Metoprolol DVT PPx Heparin The patient will need overnight hospital stay for treatment of urine infection pending Abx arrangements for outpatient. Time Spent With Patient Time: Total time managing care of this patient today ____ minutes. Quality Stroke Does the patient have a stroke diagnosis?: No VTE Prior VTE?: No VTE Risk Level:: Medical - moderate - high VTE Device Contraindication: Treatment Not Indicated VTE Drug Contraindication: N/A - Med Ordered
--- NOTE | 2022-08-16 15:27 | MHC.CM.PN ---
per rounds pt has a midline placed will go home on iv antibiotics 08/17 referrals to [facility]
[2022-08-16 15:41] VITALS: BP 134/83; PULSE 80; RESP 18; TEMP 36.4; O2SAT 99
[2022-08-16] MEDS: Heparin Sodium,Porcine Flush 50 UNITS, 0.9 % Sodium Chloride Flush 5 ML IVFLUSH ×2 (16:10→21:38)
[2022-08-16 20:00] VITALS: BP 136/66; PULSE 83; RESP 16; TEMP 36.6; O2SAT 100
[2022-08-16] MEDS: Atorvastatin Calcium 80 MG TABLET PO (21:38)
[2022-08-16] MEDS: Zolpidem Tartrate 5 MG TABLET PO (21:38)
[2022-08-16] MEDS: QUEtiapine Fumarate 100 MG TABLET PO (21:38)
[2022-08-17 04:00] VITALS: BP 110/54; PULSE 80; RESP 16; TEMP 36.1; O2SAT 96
[2022-08-17] MEDS: Heparin Sodium,Porcine 5,000 UNIT/ML VIAL 5000 UNIT SUBCUT (05:20)
[2022-08-17 07:39] VITALS: BP 124/70; PULSE 80; RESP 20; TEMP 36.2; O2SAT 96
[2022-08-17] MEDS: hydroCHLOROthiazide 50 MG TABLET PO (08:03)
[2022-08-17] MEDS: Heparin Sodium,Porcine Flush 50 UNITS, 0.9 % Sodium Chloride Flush 5 ML IVFLUSH (08:03)
[2022-08-17] MEDS: amLODIPine Besylate 5 MG TABLET PO (08:04)
[2022-08-17] MEDS: Ascorbic Acid 500 MG TABLET 1000 MG PO (08:04)
[2022-08-17] MEDS: lisinopriL 20 MG TABLET PO (08:04)
[2022-08-17] MEDS: Metoprolol Succinate ER 25 MG TAB.ER.24H 75 MG PO (08:04)
[2022-08-17] MEDS: Aspirin Enteric Coated 81 MG TABLET.DR PO (08:04)
[2022-08-17] MEDS: Tolterodine Tartrate LA 4 MG CAP.ER.24H PO (08:04)
[2022-08-17] MEDS: Hydrocortisone 1 % Cream 28.35 GM TUBE 1 APPL TOPICAL (08:05)
--- NOTE | 2022-08-17 09:39 | P.DS_ITS ---
DS: Providers Provider Date of Service: 08/17/22 Date of admission: 08/12/22 16:24 Primary care physician: Terese Silvestre CNP Consults: 08/12/22 16:02 Consult to Infectious Diseases Stat [place] [facility] [facility] [place] Reason for consultation: ESBL, pt with multiple drug allergies Has provider been notified: Yes 08/16/22 08:22 Consult to Nephrology Routine Consulting Provider: Xavi Canales Reason for consultation: Clearance for Midline placement. DS: Diagnosis Discharge Diagnosis (1) Multiple allergies: Status: Acute (2) Urinary tract infection: Status: Acute (3) Toxic metabolic encephalopathy: Status: Acute (4) Acute kidney injury superimposed on CKD: Status: Acute (5) UTI due to extended-spectrum beta lactamase (ESBL) producing Escherichia coli: Status: Acute DS: Summary Hospital Course Hospital Course: Admission note HPI A 66 years old lady with PMH of CVA, ESBL UTIs, HLD, psoriasis , CKD II among others who presents with confusion and increase urine frequency. The patient reports that her therapist was concerned when she saw her today as she has been worsening for the last 3 days at least. reporting feeling weaker and more confused. She reports being treated for urine infection w ESBL on multiple occasions and she is working on getting an explanation for it with pending MRI studies by her urologist. Denies fever, chills, N\V\D, change in bowel habit or SOB. Admitted for further eval and treatment. Hospital course The patient was admitted for evaluation of Toxic metabolic encephalopathy from UTI, DAVONTE as blood work was consistent with elevated Cr level of 1.6 from normal baseline and abnormal UA suggestive of infection. Started on Meropenem for Hx of ESBL E.Coli infection. Mental status improved back to baseline during the hospital stay. ID consult who recommended 2 weeks of Ertapenem. To finish 10 more days at home and to do a outpatient MRI of the pelvis. Midline placed. Had DAVONTE on CKDII with improvement of Cr back to baseline during hospital stay. Noted to have mild Transaminitis Likely related to DAVONTE and infection that had trended down during hospital stay. Continue Ertapenem as prescribed Follow with urology as outpatient To do the MRI study as scheduled Time Spent with Patient Time attestation: Total time managing care of this patient today ____ minutes. Discharge coordination time: Greater than 30 minutes Quality: Safe Use of Opioids Does Pt have an Active Cancer Diagnosis on the Problem List?: No Quality: Stroke Does the patient have a stroke diagnosis?: No Physical Exam Vital Signs: Vital Signs: Last Vital Signs Temp 97.2 F 08/17/22 07:39 Pulse 80 08/17/22 07:39 Resp 20 08/17/22 07:39 BP 124/70 08/17/22 07:39 Pulse Ox 96 08/17/22 07:39 O2 Del Method Room Air 08/17/22 07:39 BMI result Body Mass Index 29.2 Const: Other: Constitutional : Awake, interactive, not in distress Neck : Normal inspection, Supple Cardiovascular : RRR, no JVP, no lower extremity edema Respiratory : good bilateral air entry, no crackles, wheezes or rhonchi Gastrointestinal: soft, lax, Normal bowel sounds, mild right pubic area tenderness Skin : Warm, Dry Neurological : Alert & oriented to self and place, No focal deficit , baseline speech aphasia DS: Data Data Completed and Pending Labs on day of discharge: Preliminary micro results at discharge 08/12/22 14:22 Blood Culture - Preliminary Blood - Venous No growth after 48 hours. 08/12/22 14:22 Blood Culture - Preliminary Blood - Venous No growth after 48 hours. Discharge Plan Discharge Anticipated Discharge Date/Time: 08/17/22 11:50 Patient Disposition: Home Health Service Discharge Diagnosis: UTI from resistant E.Coli Referrals: Terese Silvestre CNP [Primary Care Provider] - 1 Week Discharge Medications: New hydrocortisone 1 % Cream 1 appl topical BID Qty: 28.4 1RF Protocol: Apply to: Apply to: chest wall ertapenem 1 gram recon soln 1 g IV Q24H Qty: 10 0RF Continued lisinopril 20 mg tablet 20 mg PO DAILY Qty: 30 5RF aspirin 81 mg tablet,delayed release (DR/EC) 81 mg PO DAILY Qty: 30 5RF metoprolol succinate 25 mg tablet extended release 24 hr 75 mg PO DAILY Qty: 90 5RF atorvastatin 80 mg tablet 80 mg PO BEDTIME 30 Days Qty: 30 3RF tolterodine 4 mg capsule,extended release 24hr 4 mg PO DAILY 30 Days Qty: 30 1RF chlorthalidone 50 mg tablet 50 mg PO DAILY clonidine 0.1 mg/24 hr patch weekly 1 patch transdermal BANKS zolpidem 5 mg tablet 5 mg PO BEDTIME quetiapine 50 mg tablet extended release 24 hr 100 mg PO BEDTIME amlodipine 5 mg tablet 5 mg PO DAILY estradiol 0.01 % (0.1 mg/gram) cream See Rx Instructions vaginal 3XW 30 Days Qty: 42.5 0RF Rx Instructions: vaginally 3 times a week; pea sized amount to urethra 3 times a week ascorbic acid (vitamin C) 1,000 mg tablet 1,000 mg PO DAILY 90 Days Qty: 90 1RF Discharge Orders: Discharge Order (Routine); Ordered 08/17/22 Ordered By: Hortensia Poon Diet: Advance to usual diet Activity on Discharge: As tolerated Stand Alone Forms: Patient Portal Discharge page Care Plan Goals: Read below Health Concerns: Read below Plan of Treatment: Read below Assessment: You were admitted for evaluation of urine infection, altered mentaiton and worsen kidney function. responded well to treatment with Antibtiotics as your urine culture grew a resistant bacteria called E.Coli. Continue Ertapenem as prescribed Follow with urology as outpatient To do the MRI study as scheduled Come back to the hospital for any fever or worsening urinary symptoms
[2022-08-17] MEDS: Ertapenem Sodium 1 GM in 0.9 % Sodium Chloride 50 ML IV (09:46)
--- NOTE | 2022-08-17 11:18 | P.F2F_ITS ---
Service Date Service Date: 08/17/22 Encounter Date of encounter: 08/17/22 Reasons for Services Signs and symptoms assessed: Need of IV antibiotics Reason for jail: administration of IV, SQ, or IM injection and central line care Homebound: Leaving the home is medically contraindicated at this time without the asist of a device and/or another person due th the listed conditions above and below. Reason homebound: other Homebound supporting statement: Need of IV antibiotics Certification: Based on the above findings, I certify that this patient is confined to the home and needs intermittent jail care, physical therapy and/or speech therapy, or continues to need occupational therapy. The patient is under my care, and I have initiated the establishment of the plan of care. The patient will be followed by a physician who will periodically review the plan of care. Time Spent With Patient Time: Total time managing care of this patient today ____ minutes.
--- NOTE | 2022-08-17 11:25 | MHC.CM.PN ---
DP: PT HAS BEEN MEDICALLY CLEARED FOR DC HOME WITH NEW [facility] SERVICES FOR IV TEACHING/MANAGEMENT. [facility] IS AWARE OF TODAY'S DC AND SOC TO BE 08/18. [facility] LIAISON IN FOR A TEACH AND PT DID WELL. BLS TRANSPORT SET UP VIA [facility] FOR 1 PM. RN MADE AWARE.
== END 2022-08-17 13:18 | disposition home health service (06) | DRG 682 ==
LOC: HO.ED 16:06 → HO.EDOVER 16:43 → HO.S3 17:12
PROVIDERS: Nurse Practitioner Family; Admitting Provider Student in an Organized Health Care Education/Training Program; Emergency Provider Student in an Organized Health Care Education/Training Program; PCP Nurse Practitioner Family; Visit Provider Student in an Organized Health Care Education/Training Program
DX: N17.9 Acute kidney failure, unspecified (principal); G92.8 Other toxic encephalopathy; N39.0 Urinary tract infection, site not specified; Z16.12 Extended spectrum beta lactamase (ESBL) resistance; I12.9 Hypertensive chronic kidney disease with stage 1 through stage 4 chronic kidney disease, or unspecified chronic kidney disease; N18.2 Chronic kidney disease, stage 2 (mild); Z87.440 Personal history of urinary (tract) infections; Z87.891 Personal history of nicotine dependence; Z91.040 Latex allergy status; Z88.0 Allergy status to penicillin; Z88.2 Allergy status to sulfonamides; Z79.82 Long term (current) use of aspirin; Z79.899 Other long term (current) drug therapy
CPT/HCPCS: 36410; 36415; 70450; 76705; 80048; 80076; 80307; 81001; 82947; 83605; 83735; 84300; 84484; 85025; 85027; 85610; 87040; 87086; 87088; 87186; 93005; 99285; J1335; J1642; J1643; J2185

== ENCOUNTER 2022-08-19 13:46 | Outpatient (REF) | payer OTHER, SELFPAY ==
[2022-08-19 14:07] LABS: MANUAL DIFF FLAG NO
[2022-08-19 14:15] LABS: Basophils Percent Auto 0.7 % (0-2); Eosinophils Absolute Auto 0.2 X10*3/uL (0.0-0.4); Eosinophils Percent Auto 4.1 % (0-4); Hematocrit 32.5 % (37.0-47.0); Hemoglobin 11.1 g/dl (12.0-16.0); Imm Gran Abs Auto 0.04 X10*3/uL (0.00-0.03); Imm Gran Pct Auto 0.7 % (0.0-0.4); Lymphocytes Absolute Auto 1.9 X10*3/uL (1.2-4.9); Lymphocytes Percent Auto 33.3 % (20-40); Mean Corpuscular HGB Conc 34.2 g/dl (31.0-35.0); Mean Corpuscular Hemoglobin 32.9 pg (27.0-33.0); Mean Corpuscular Volume 96.4 fL (80.0-98.0); Mean Platelet Volume 9.5 fL (9.4-12.3); Monocytes Absolute Auto 0.4 X10*3/uL (0.1-1.2); Monocytes Percent Auto 6.5 % (2-11); Neutrophils Absolute Auto 3.2 x10*3/uL (2.0-8.3); Neutrophils Percent Auto 54.7 % (45-73); Platelet Count 319 X10*3/uL (160-400); Red Blood Count 3.37 X10*6/uL (4.20-5.50); Red Cell Distribution Width 11.7 % (11.0-16.0); White Blood Count 5.8 X10*3/uL (4.8-10.8)
[2022-08-19 14:58] LABS: Alanine Aminotransferase 46 U/L (0-31); Alkaline Phosphatase 134 U/L (39-117); Anion Gap 12 (12-20); Aspartate Amino Transferase 26 U/L (5-31); Bilirubin Total 0.2 mg/dL (0.0-1.0); Blood Urea Nitrogen 36 mg/dL (9-16); Calcium 8.5 mg/dL (8.4-10.2); Carbon Dioxide 24 mmol/L (22-29); Chloride 103 mmol/L (96-108); Estimated Glomerular Filt Rate 50; Glucose Random 129 mg/dL (60-115); Potassium 4.4 mmol/L (3.3-5.1); Sodium 135 mmol/L (135-145); Total Protein 6.6 g/dL (6.5-8.0)
== END 2022-08-19 13:47 | disposition home or self-care (01) ==
LOC: HO.HVNA 13:46
PROVIDERS: Visit Provider Internal Medicine
DX: N39.0 Urinary tract infection, site not specified (principal)
CPT/HCPCS: 36415; 80053; 85025

== ENCOUNTER 2022-08-25 15:04 | Outpatient (REF) | payer OTHER, SELFPAY ==
[2022-08-25 15:12] LABS: MANUAL DIFF FLAG NO
[2022-08-25 15:15] LABS: Basophils Absolute Auto 0.1 X10*3/uL (0.0-0.2); Basophils Percent Auto 0.9 % (0-2); Eosinophils Absolute Auto 0.2 X10*3/uL (0.0-0.4); Eosinophils Percent Auto 4.2 % (0-4); Hematocrit 31.4 % (37.0-47.0); Hemoglobin 10.6 g/dl (12.0-16.0); Imm Gran Abs Auto 0.01 X10*3/uL (0.00-0.03); Imm Gran Pct Auto 0.2 % (0.0-0.4); Lymphocytes Absolute Auto 1.8 X10*3/uL (1.2-4.9); Lymphocytes Percent Auto 31.7 % (20-40); Mean Corpuscular HGB Conc 33.8 g/dl (31.0-35.0); Mean Corpuscular Hemoglobin 32.8 pg (27.0-33.0); Mean Corpuscular Volume 97.2 fL (80.0-98.0); Mean Platelet Volume 9.6 fL (9.4-12.3); Monocytes Absolute Auto 0.4 X10*3/uL (0.1-1.2); Monocytes Percent Auto 7.2 % (2-11); Neutrophils Absolute Auto 3.2 x10*3/uL (2.0-8.3); Neutrophils Percent Auto 55.8 % (45-73); Platelet Count 341 X10*3/uL (160-400); Red Blood Count 3.23 X10*6/uL (4.20-5.50); Red Cell Distribution Width 11.7 % (11.0-16.0); White Blood Count 5.7 X10*3/uL (4.8-10.8)
[2022-08-25 16:06] LABS: Alanine Aminotransferase 23 U/L (0-31); Albumin Level 3.9 g/dL (3.5-5.0); Alkaline Phosphatase 105 U/L (39-117); Anion Gap 13 (12-20); Aspartate Amino Transferase 18 U/L (5-31); Bilirubin Total 0.3 mg/dL (0.0-1.0); Blood Urea Nitrogen 29 mg/dL (9-16); Calcium 9.4 mg/dL (8.4-10.2); Carbon Dioxide 25 mmol/L (22-29); Chloride 108 mmol/L (96-108); Estimated Glomerular Filt Rate 51; Glucose Fasting 104 mg/dL (60-99); Potassium 4.6 mmol/L (3.3-5.1); Sodium 141 mmol/L (135-145); Total Protein 6.3 g/dL (6.5-8.0)
== END 2022-08-25 15:05 | disposition home or self-care (01) ==
LOC: HO.HVNA 15:04
PROVIDERS: Visit Provider Internal Medicine
DX: N39.0 Urinary tract infection, site not specified (principal)
CPT/HCPCS: 36415; 80053; 85025

== ENCOUNTER 2022-09-01 12:26 | Outpatient (REF) | payer OTHER, SELFPAY ==
--- NOTE | ~2022-09-01 | MR_ITS ---
EXAMINATION: MRI PELVIS WITH AND WITHOUT CONTRAST CLINICAL INFORMATION: Reason for Exam N83.209 - Unspecified ovarian cyst, unspecified side COMPARISON: No pertinent priors currently available. TECHNIQUE: Multiple routine MRI sequences through the pelvis were obtained before and after the uneventful administration of 9 mL of Gadavist gadolinium-based IV contrast. FINDINGS: UTERUS: Status post hysterectomy. OVARIES: A 14.0 x 8.6 x 9.1 cm cystic mass in the central pelvis, favoring to arise from the right ovary with multiple thin or minimally thickened enhancing septations. No dre solid nodular components. Left ovary is remarkable for a 1.9 cm cyst with a single thin internal septation likely benign. KIDNEYS: Two normally positioned kidneys are seen. Left kidney is asymmetrically atrophic. No hydronephrosis. BLADDER: Unremarkable. PELVIC FREE FLUID: No free fluid or ascites. LYMPH NODES: No pathologically enlarged lymph nodes. OSSEOUS STRUCTURES: No acute or suspicious osseous abnormalities. Small fat-containing right inguinal hernia. MR/MR pelvis wo/w con IMPRESSION: 1. A 14.0 cm cystic mass in the central pelvis, favoring to arise from the right ovary with multiple thin or minimally thickened enhancing septations, suspicious for gynecologic neoplasm. No dre solid nodular components. Recommend gynecologic surgical consultation and management. 2. A 1.9 cm left ovarian cyst with a single thin internal septation likely benign. No routine imaging follow-up recommended. As this exam was dictated after hours, a [place] applications administrator will contact the ordering provider with findings and recommendations at the start of the next business day.
== END 2022-09-01 12:27 | disposition home or self-care (01) ==
LOC: HO.MRI 12:26
PROVIDERS: PCP Nurse Practitioner Family; Visit Provider Nurse Practitioner Family
DX: N83.209 Unspecified ovarian cyst, unspecified side (principal)
CPT/HCPCS: 72197; A9585

== ENCOUNTER 2022-09-08 13:21 | Outpatient (AMB) | payer OTHER, SELFPAY ==
--- NOTE | 2022-09-08 13:38 | MHC.OFFVIS ---
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 Accompanied by: Self / Same As Patient Allergies acetaminophen [Vicodin] Allergy (Unknown, Verified 09/09/22 10:36) tongue swells, hives on bottom of feet adhesive tape [Adhesive Tape] Allergy (Unknown, Verified 09/09/22 10:36) Rash hydrocodone [Vicodin] Allergy (Unknown, Verified 09/09/22 10:36) tongue swells, hives on bottom of feet latex [Latex] Allergy (Unknown, Verified 09/09/22 10:36) Rash, red blisters penicillin V Allergy (Unknown, Verified 09/09/22 10:36) hives, rash Penicillins Allergy (Unknown, Verified 09/09/22 10:36) Rash, Nausea and Vomiting Sulfa (Sulfonamide Antibiotics) Allergy (Unknown, Verified 09/09/22 10:36) Hives, rash amphetamine [Adderall] Adverse Reaction (Unknown, Verified 09/09/22 10:36) diarrhea dextroamphetamine [Adderall] Adverse Reaction (Unknown, Verified 09/09/22 10:36) diarrhea morphine [MORPHINE] Adverse Reaction (Unknown, Verified 09/09/22 10:36) Nausea and Vomiting phenobarbital [Phenobarbital] Adverse Reaction (Unknown, Verified 09/09/22 10:36) extreme hyperactivity meperidine [From Demerol] Adverse Reaction (Verified 09/09/22 10:36) Vomiting Medication List - Last Reconciled 09/09/22 by GENEVA Redding amlodipine 5 mg PO DAILY ascorbic acid (vitamin C) 1,000 mg PO DAILY 90 days aspirin 81 mg PO DAILY atorvastatin 80 mg PO BEDTIME 30 days chlorthalidone 50 mg PO DAILY clonidine 1 patch transdermal BANKS estradiol 0.01%(0.1mg/gram) vaginally 3 times a week; pea sized amount to urethra 3 times a week 30 days hydrocortisone 1% 1 appl See Protocol topical BID lisinopril 20 mg PO DAILY metoprolol succinate ER 75 mg (3 x 25 mg) PO DAILY quetiapine ER 100 mg PO BEDTIME tolterodine ER 4 mg PO DAILY 30 days zolpidem 5 mg PO BEDTIME HPI HPI Comments History of Present Illness Details Bev is a pleasant 66-year-old female patient of Dr. Silvestre. She has a past medical history of bipolar, CKD stage 2, dyslipidemia, hypertension, history of CVA with expressive aphasia, osteoarthritis, recurrent urinary tract infections, and overactive bladder. She presents to the office today for follow-up regarding her frequent urinary tract infections and overactive bladder. Of note, patient was previously seen approximately 2 months ago at which time a MRI of the pelvis was ordered for further assessment evaluation of noted right aspect of the bladder dome there is a preliminary cystic lesion measuring 6.4 x 12 x 7.4 cm with solid components and internal projections, likely ovarian in origin via ultrasound. MRI indicating a 14.0 cm cystic mass in the central pelvis, favoring to arise from the right ovary with multiple thin or minimally thickened enhancing septations, suspicious for gynecologic neoplasm. No dre solid nodular components. Recommend gynecologic surgical consultation and management. A 1.9 cm left ovarian cyst with a single thin internal septation likely benign. No routine imaging follow-up recommended. These results were reviewed with the patient today. 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 Elizondo earlier today. In review of patient's chart it appears consultation has since been faxed. After Dr. Elizondo has reviewed her records and met with her earlier today she is recommending a laparoscopic bilateral oophorectomy. Her tumors are considered low risk for malignancy and her surgery is currently being scheduled however there is no specific date at this time. She will be referred to tire inspector Oncology if pathology reveals malignancy. Patient was also recently hospitalized at [facility] for confusion on 08/12/2022 and was admitted for 5 days Hospital course: The patient was admitted for evaluation of Toxic metabolic encephalopathy from UTI, DAVONTE as blood work was consistent with elevated Cr level of 1.6 from normal baseline and abnormal UA suggestive of infection. Started on Meropenem for Hx of ESBL E.Coli infection. Mental status improved back to baseline during the hospital stay. ID consult who recommended 2 weeks of Ertapenem. To finish 10 more days at home. Midline placed. Had DAVONTE on CKD II with improvement of Cr back to baseline during hospital stay. Noted to have mild Transaminitis Likely related to DAVONTE and infection that had trended down during hospital stay. Continue Ertapenem as prescribed Follow with urology as outpatient To do the MRI study as scheduled In discussion with the patient today she reports to have since completed Ertapenem and midline has since been removed. She reports to be doing and feeling well. Patient otherwise denies any urinary issues or concerns. She denies urinary hematuria, dysuria, changes to urinary stream, flank pain, fever, and or chills. She does report urinary frequency, urinary urgency, incontinent episodes if not near a bathroom and foul-smelling urine. She reports that since her stroke 09/2021 she continues with expressive aphasia, short-term memory loss, and trouble remembering numbers. [facility] Medical History Bipolar 1 disorder Cholelithiasis CKD (chronic kidney disease) stage 2, GFR 60-89 ml/min COVID-19 vaccination declined Dyslipidemia Dyspareunia in female Elevated blood pressure reading in office with diagnosis of hypertension Essential hypertension Expressive aphasia Gestational diabetes History of CVA (cerebrovascular accident) History of CVA with residual deficit Hx of uterine prolapse Hypotonic bladder Impaired fasting glucose Multiple allergies Osteoarthritis of knees, bilateral Osteoporosis Overactive bladder Psoriasis Rectocele Recurrent urinary tract infection Refused influenza vaccine Stroke Urge incontinence Urinary tract infection Surgical History H/O rectocele repair History of Maloney urethropexy History of total left knee replacement (TKR) History of total right knee replacement (TKR) Hx of total vaginal hysterectomy Family History Father Diabetes mellitus CHF (congestive heart failure) Mother FH: stomach cancer Crohn disease Son Mental health disorder Social History Household Members: Children Housing: Apartment Do you presently have visiting nurse or other home services: Yes Patient Tobacco Use Status: Former Tobacco user Quit Date: 07/22/22 e-Cigarette/Vaping Use: Never Used Second Hand Smoke Exposure: No service: No Current occupational status: disabled Cognitive needs: No Hearing needs: No Vision needs: No Review of Systems Const Reports as per HPI Eyes Reports no additional complaints ENT Reports no additional complaints Card Reports no additional complaints Resp Reports no additional complaints GI Details: Reports no additional complaints Reports as per HPI Musc Reports no additional complaints Neuro Reports as per HPI Endo Reports no additional complaints Physical Exam Const General: cooperative, healthy appearing, comfortable, no acute distress, well developed, alert and awake Orientation/consciousness: patient oriented x3 Limitations: no limitations HEENT Head: Yes normal to inspection, Yes normocephalic and Yes atraumatic Ears: hearing grossly normal bilaterally Eyes General: appearance normal, both eyes and all related structures Neck Neck: Yes normal visual inspection and Yes trachea midline Chest Chest palpation & inspection: normal inspection of the chest Resp Effort & Inspection: normal respiratory effort and able to speak in complete sentences Cardio Rate: regular rate GI Inspection: Yes normal to inspection General: Yes no CVA tenderness Back/Spine/Pelvis Back: no CVA tenderness Thoracic/Lumbar Spine: thoracic and lumbar spine normal to inspection Skin General skin exam: no rashes or lesions noted Neuro General: patient oriented x3 Speech: Expressive aphasia present Gait exam (Neuro): Normal gait present Extrem General: Yes normal to inspection Psych Appearance: grossly normal and well kempt Speech and movement: Clear speech present and Pressured speech present Attitude: cooperative Thought process: Normal thought process present Thought content: Normal thought content present Insight: Fair insight present (Psych) Judgement: Fair judgement present (Psych) Results AMB Urinalysis, Automated UA Leukoctes 15 Emiliano/uL Last Edit by [facility] on 09/08/22 13:52 UA Nitrite Negative Last Edit by [facility] on 09/08/22 13:52 UA Urobilinogen 0.2 mg/dL Last Edit by [facility] on 09/08/22 13:52 UA Protein 0 mg/dL Last Edit by [facility] on 09/08/22 13:52 UA pH 6.0 Last Edit by [facility] on 09/08/22 13:52 UA Blood 0 Maximiliano/uL Last Edit by [facility] on 09/08/22 13:52 UA Specific [place] 1.020 Last Edit by [facility] on 09/08/22 13:52 UA Ketone Negative Last Edit by [facility] on 09/08/22 13:52 UA Bilirubin 0 mg/dL Last Edit by [facility] on 09/08/22 13:52 UA Glucose 0 mg/dL Last Edit by [facility] on 09/08/22 13:52 Results Reviewed Results Reviewed: Laboratory Last Values Urine pH (Auto) 6.0 09/08/22 13:44 Specific [place] (Auto) 1.020 09/08/22 13:44 Urine Protein (Auto) 0 mg/dL 09/08/22 13:44 Glucose (UA)(Auto) 0 mg/dL 09/08/22 13:44 Urine Ketones (Auto) Negative 09/08/22 13:44 Urine Blood (Auto) 0 Maximiliano/uL 09/08/22 13:44 Urine Nitrite (Auto) Negative 09/08/22 13:44 Urine Bilirubin (Auto) 0 mg/dL 09/08/22 13:44 Urine Urobilinogen (Auto) 0.2 mg/dL 09/08/22 13:44 Leukocyte Esterase (Auto) 15 Emiliano/uL 09/08/22 13:44 Date of Service: 09/01/22 Procedure(s): MR pelvis wo/w con EXAMINATION: MRI PELVIS WITH AND WITHOUT CONTRAST FINDINGS: UTERUS: Status post hysterectomy. OVARIES: A 14.0 x 8.6 x 9.1 cm cystic mass in the central pelvis, favoring to arise from the right ovary with multiple thin or minimally thickened enhancing septations. No dre solid nodular components. Left ovary is remarkable for a 1.9 cm cyst with a single thin internal septation likely benign. KIDNEYS: Two normally positioned kidneys are seen. Left kidney is asymmetrically atrophic. No hydronephrosis. BLADDER: Unremarkable. PELVIC FREE FLUID: No free fluid or ascites. LYMPH NODES: No pathologically enlarged lymph nodes. OSSEOUS STRUCTURES: No acute or suspicious osseous abnormalities. Small fat-containing right inguinal hernia. IMPRESSION: 1.? A 14.0 cm cystic mass in the central pelvis, favoring to arise from the right ovary with multiple thin or minimally thickened enhancing septations, suspicious for gynecologic neoplasm. No dre solid nodular components. Recommend gynecologic surgical consultation and management. 2.? A 1.9 cm left ovarian cyst with a single thin internal septation likely benign. No routine imaging follow-up recommended. Assessment & Plan Assessment & Plan (1) UTI due to extended-spectrum beta lactamase (ESBL) producing Escherichia coli: Code(s): N39.0 - Urinary tract infection, site not specified; B96.29 - Other Escherichia coli [E. coli] as the cause of diseases classified elsewhere; Z16.12 - Extended spectrum beta lactamase (ESBL) resistance (2) Ovarian cyst: Code(s): N83.209 - Unspecified ovarian cyst, unspecified side (3) Complicated urinary tract infection: Code(s): N39.0 - Urinary tract infection, site not specified (4) Recurrent urinary tract infection: Code(s): N39.0 - Urinary tract infection, site not specified Plan In office urinalysis results reviewed with the patient today; as noted above. Patient has since finished IV antibiotic therapy and midline has been removed. Recent MRI imaging results reviewed with the patient today; as noted above Patient has since had consultation with Dr. Elizondo; [employer]; and is currently being scheduled for laparoscopic bilateral oophorectomy. Continue vitamin-C, methenamine, and estradiol cream as discussed and prescribed. Discussed, educated, and encouraged on the importance of drinking plenty of water daily. Discussed near future in office cystoscopy if symptoms arise. Follow-up in 3 months; if not sooner with any issues, concerns, and or questions. Orders: Orders AMB Urinalysis Automated 09/08/22 Z13.9 - Encounter for screening, unspecified Patient Instructions: The patient had an opportunity to ask questions regarding the treatment plan. All questions were answered. Physical exam, labs, and imaging were discussed and reviewed in detail. As well as risks, benefits, and discussion of treatment choices. No major barriers to understanding were identified. The patient expressed understanding and agreement with the above treatment plan. The patient was made aware they should contact our office by phone for worsening of their current condition, the appearance of new symptoms, or with any questions or concerns. Compliance is encouraged with any medications and follow up testing that is ordered. It is a privilege to be allowed the opportunity to participate in? your urological care.? Again, if you have any questions or concerns If you have any questions or concerns please do not hesitate to contact me. The office is [phone]. This note is constructed using voice recognition software. While every effort has been made to ensure accuracy cut out stitcher errors may have been included. Yours sincerely, GENEVA Redding Coding Level of Care Code Est Pt Level 3 (15445) Diagnoses UTI due to extended-spectrum beta lactamase (ESBL) producing Escherichia coli N39.0; B96.29; Z16.12 Ovarian cyst N83.209 Complicated urinary tract infection N39.0 Recurrent urinary tract infection N39.0
== END 2022-09-08 14:24 | disposition home or self-care (01) ==
PROVIDERS: Visit Provider Nurse Practitioner Family
DX: N39.0 Urinary tract infection, site not specified (principal); B96.29 Other Escherichia coli [E. coli] as the cause of diseases classified elsewhere; Z16.12 Extended spectrum beta lactamase (ESBL) resistance; N83.209 Unspecified ovarian cyst, unspecified side
CPT/HCPCS: 99213

== ENCOUNTER → 2022-09-08 13:21 | Outpatient (BNVA) | payer OTHER, SELFPAY | PROVIDERS: Visit Provider Nurse Practitioner Family | DX: N39.0 Urinary tract infection, site not specified (principal); B96.29 Other Escherichia coli [E. coli] as the cause of diseases classified elsewhere; N83.209 Unspecified ovarian cyst, unspecified side; Z16.12 Extended spectrum beta lactamase (ESBL) resistance | CPT/HCPCS: 99212 ==

== ENCOUNTER 2022-09-15 12:12 | Outpatient (AMB) | payer OTHER, SELFPAY ==
[2022-09-15 12:30] VITALS: BP 130/80; PULSE 78; RESP 12; TEMP 36.7; O2SAT 98; BMI 33.8
--- NOTE | 2022-09-15 12:30 | A.OFFPC_ITS ---
Vital Signs 09/15/22 12:30 Height 5 ft 4 in Weight 197 lb BMI 33.8 BP 130/80 Blood Pressure Location Lt brachial Position Sitting Respiration 12 Pulse 78 Pulse Source Pulse Oximeter Temp 98.1 F Temp Source Oral Pulse Oximetry (%) 98 Oxygen Delivery Method Room Air Intake Visit Reasons: 3 months health maintenance and bipolar Intake Note: Patient is here for health maintenance and bipolar, and would like to discuss swollen ankles for four days. Allergies acetaminophen [Vicodin] Allergy (Unknown, Verified 09/15/22 12:53) tongue swells, hives on bottom of feet adhesive tape [Adhesive Tape] Allergy (Unknown, Verified 09/15/22 12:53) Rash hydrocodone [Vicodin] Allergy (Unknown, Verified 09/15/22 12:53) tongue swells, hives on bottom of feet latex [Latex] Allergy (Unknown, Verified 09/15/22 12:53) Rash, red blisters penicillin V Allergy (Unknown, Verified 09/15/22 12:53) hives, rash Penicillins Allergy (Unknown, Verified 09/15/22 12:53) Rash, Nausea and Vomiting Sulfa (Sulfonamide Antibiotics) Allergy (Unknown, Verified 09/15/22 12:53) Hives, rash amphetamine [Adderall] Adverse Reaction (Unknown, Verified 09/15/22 12:53) diarrhea dextroamphetamine [Adderall] Adverse Reaction (Unknown, Verified 09/15/22 12:53) diarrhea morphine [MORPHINE] Adverse Reaction (Unknown, Verified 09/15/22 12:53) Nausea and Vomiting phenobarbital [Phenobarbital] Adverse Reaction (Unknown, Verified 09/15/22 12:53) extreme hyperactivity meperidine [From Demerol] Adverse Reaction (Verified 09/15/22 12:53) Vomiting Medication List - Last Reconciled 09/15/22 by Terese Silvestre, SUSHMA amlodipine 5 mg PO DAILY ascorbic acid (vitamin C) 1,000 mg PO DAILY 90 days aspirin 81 mg PO DAILY atorvastatin 80 mg PO BEDTIME 30 days chlorthalidone 50 mg PO DAILY clonidine 1 patch transdermal BANKS estradiol 0.01%(0.1mg/gram) vaginally 3 times a week; pea sized amount to urethra 3 times a week 30 days hydrocortisone 1% 1 appl See Protocol topical BID lisinopril 20 mg PO DAILY metoprolol succinate ER 75 mg (3 x 25 mg) PO DAILY quetiapine ER 100 mg PO BEDTIME tolterodine ER 4 mg PO DAILY 30 days zolpidem 5 mg PO BEDTIME Tobacco use date assessed: 09/15/22 Fall risk assessment: 1 Fall in past year Last assessed Fall Risk: 09/15/22 Dental Screening Dental Screen Date: 09/15/22 Did you have a dental visit in the last 12 months?: No Did you have a dental problem in the last 6 months where you did not have access to dental care?: No Was dental information given to patient?: No HPI HPI Comments History of Present Illness Details 66-year-old female presents for health maintenance and bipolar follow- up. She notes that she has been feeling better since she was discharged from the hospital following treatment for confusion/UTI. No acute symptoms today. She denies symptoms of bipolar. Symptoms are control on quetiapine and zolpidem. She notes that she is being scheduled for surgery to have her ovaries removed. She notes that she was informed removal of her ovaries will prevent recurring UTI. She continues to do weekly speech therapy with significant improvement. She continues to exercise by walking a mile every day. [facility] Medical History Bipolar 1 disorder Cholelithiasis CKD (chronic kidney disease) stage 2, GFR 60-89 ml/min COVID-19 vaccination declined Dyslipidemia Dyspareunia in female Elevated blood pressure reading in office with diagnosis of hypertension Essential hypertension Expressive aphasia Gestational diabetes History of CVA (cerebrovascular accident) History of CVA with residual deficit Hx of uterine prolapse Hypotonic bladder Impaired fasting glucose Multiple allergies Osteoarthritis of knees, bilateral Osteoporosis Overactive bladder Psoriasis Rectocele Recurrent urinary tract infection Refused influenza vaccine Stroke Urge incontinence Urinary tract infection Surgical History H/O rectocele repair History of Maloney urethropexy History of total left knee replacement (TKR) History of total right knee replacement (TKR) Hx of total vaginal hysterectomy Family History Father Diabetes mellitus CHF (congestive heart failure) Mother FH: stomach cancer Crohn disease Son Mental health disorder Social History Household Members: Children Housing: Apartment Do you presently have visiting nurse or other home services: Yes Patient Tobacco Use Status: Former Tobacco user Quit Date: 07/22/22 e-Cigarette/Vaping Use: Never Used Second Hand Smoke Exposure: No service: No Current occupational status: disabled Cognitive needs: No Hearing needs: No Vision needs: No Questionnaire Thrive Questionnaire Date Thrive assessed: 08/13/22 JOSE-7 AMB Questionnaire JOSE-7 Date JOSE - 7 assessed: 03/19/21 Source: Developed by Drs. Ziggy Martino, Mesha Frye, Eben Dacosta and colleagues, with an educational susie from [employer]. Review of Systems Const Details: Const Denies chills, Denies fatigue, Denies fever(s), Denies headache(s) and Denies weakness ENT Denies dizziness and Denies headache(s) Card Denies chest pain, Denies lightheadedness, Denies dyspnea and Denies other (Palpitations) Resp Denies cough, Denies dyspnea, Denies wheezing and Denies other ( shortness of breath) GI Denies abdominal pain, Denies melena, Denies hematochezia, Denies change in bowel habits, Denies dyspepsia and Denies nausea Denies hematuria and Denies dysuria Musc Denies abnormal gait, Denies myalgias, Denies arthralgias, Denies numbness and Denies tingling Skin/Breast Denies rash, Denies unusual bruising and Denies wounds Neuro Denies abnormal gait, Denies dizziness, Denies headache(s), Denies memory loss, Denies numbness, Denies Sensory deficit (Neuro), Denies tingling and Denies weakness Psych Denies anxiety and Denies depression Endo Denies fatigue Aller/Immun Denies wheezing Physical exam (Primary Care) Vital Signs: Last Vital Signs Temp 98.1 F 09/15/22 12:30 Pulse 78 09/15/22 12:30 Resp 12 09/15/22 12:30 BP 130/80 09/15/22 12:30 Pulse Ox 98 09/15/22 12:30 Oxygen Delivery Method Room Air 09/15/22 12:30 BMI result Body Mass Index 33.8 Tobacco/Smoking Status: Tobacco use Status Tobacco use date assessed 09/15/22 09/15/22 12:41 Patient Tobacco Use Status Former Tobacco user 09/15/22 12:31 e-Cigarette/Vaping Use Never Used 09/15/22 12:31 Thrive Assessment: Date of Thrive Assessment Date Thrive assessed 08/13/22 09/15/22 12:31 Const Other: General: no acute distress and well developed Nutritional Appearance: well nourished Orientation/consciousness: patient oriented x3 HENMT Head: Yes normocephalic and Yes atraumatic Eyes General: appearance normal, both eyes and all related structures Pupils: Equal, round and reactive pupils present EOM: EOMs intact bilaterally Resp Effort & Inspection: normal respiratory effort Auscultation: clear to auscultation bilaterally Cardio Rate: regular rate Rhythm: regular rhythm Heart sounds: S1 normal heart sound present, S2 normal heart sound present, no gallops, no murmurs and no rubs GI Palpation (GI): No Abdominal aortic bruit present, Soft to palpation, nontender, No hepatosplenomegaly present and No Rebound tenderness present Auscultation: normal bowel sounds General: Yes no CVA tenderness Back/Spine/Pelvis Back: no CVA tenderness Cervical Spine: cervical ROM normal and No Cervical spine tenderness Thoracic/Lumbar Spine: thoraco-lumbar ROM normal, No pain with thoraco-lumbar ROM, No thoracic spinal tenderness and No lumbar spinal tenderness Extrem General: Yes normal to inspection, moderate nonpitting edema to bilat ankles, and No calf tenderness Skin General: warm and dry. Normal skin color. Normal skin turgor Lesions: no lesions Rashes: no rashes Trauma: no lacerations or abrasions Wounds: no wounds Nails: normal Neuro General: patient oriented x3, gait normal and baseline aphasia Cranial nerves: Yes Equal, round and reactive pupils present Cognition (Neuro): normal cognition Gait exam (Neuro): Normal gait present Motor exam (neuro): 5/5 motor strength present throughout Sensory Exam: No Sensory deficit (Neuro) Deep tendon reflexes (DTR's): Right patellar reflex intensity grade: 2+ and Left patellar reflex intensity grade: 2+ Psych Appearance: grossly normal Affect: normal affect Attitude: cooperative Thought process: Normal thought process present Assessment and Plan Assessment & Plan (1) Anemia: Code(s): D64.9 - Anemia, unspecified Plan: History of low RBC, and H/H and normal MCV May be attributed to iron deficiency, folate/B12 anemia, or anemia of chronic disease given h/o CKD She is followed by nephrology Labs ordered Follow up in 1 month for a CPE or sooner with symptoms or concerns Verbalized undrstanding and agreed with the treatment plan. (2) Dyslipidemia: Code(s): E78.5 - Hyperlipidemia, unspecified Plan: Her last LDL was 86, above goal of less than 70 LP ordered Advised to get fasting blood work done before next visit. Fast for at least 10- 12 hours before blood work, may drink water Continue take atorvastatin as prescribed Advised to limit foods high in saturated fat and avoid foods high trans fat Routine exercise encouraged Verbalized understanding and agreed with treatment plan. (3) Elevated fasting glucose: Code(s): R73.01 - Impaired fasting glucose Plan: Recent fasting glucose was elevated, 104 Fasting glucose we ordered to monitor trend Healthy diet and routine exercise encouraged Advised to get fasting blood work done before next visit Verbalized understanding and agreed with treatment plan. (4) Bipolar 1 disorder: Comment: [facility] Code(s): F31.9 - Bipolar disorder, unspecified Plan: No acute symptoms Quetiapine and zolpidem as prescribed Follow-up with symptoms or concerns (5) Ankle edema, bilateral: Code(s): M25.471 - Effusion, right ankle; M25.472 - Effusion, left ankle Plan: Moderate nonpitting edema to bilateral ankle Likely due to prolonged standing or walking although possible adverse reaction of amlodipine Elevate bilateral lower extremity to reduce swelling Return with increased swelling, pitting edema, or shortness of breath Verbalized understanding and agreed with treatment plan. (6) Hypertension: Code(s): I10 - Essential (primary) hypertension Plan: Blood pressure is 130/80, slightly above goal of less than 130/80 Continue to take antihypertensives as prescribed Low-sodium diet encouraged Follow-up in 1 month or return sooner with symptoms or concerns Verbalized understanding and agreed with treatment plan Orders: Orders Lipid Panel Today E78.5 - Hyperlipidemia, unspecified Glucose Fasting Today D64.9 - Anemia, unspecified Complete Blood Count Auto Diff Today D64.9 - Anemia, unspecified IRON PROFILE Today D64.9 - Anemia, unspecified Ferritin Today D64.9 - Anemia, unspecified Reticulocyte Count Today D64.9 - Anemia, unspecified Coding Level of Care Code Est Pt Level 3 (01698) Diagnoses Anemia D64.9 Dyslipidemia E78.5 Elevated fasting glucose R73.01 Bipolar 1 disorder F31.9 Ankle edema, bilateral M25.471; M25.472 Hypertension I10 Time Spent (min) 25
== END 2022-09-15 13:55 | disposition home or self-care (01) ==
PROVIDERS: Visit Provider Nurse Practitioner Family
DX: D64.9 Anemia, unspecified (principal); E78.5 Hyperlipidemia, unspecified; F31.9 Bipolar disorder, unspecified; I10 Essential (primary) hypertension; R73.01 Impaired fasting glucose; M25.471 Effusion, right ankle; M25.472 Effusion, left ankle
CPT/HCPCS: 99213

== ENCOUNTER 2022-09-22 10:30 | Outpatient (AMB) | payer OTHER, SELFPAY ==
--- NOTE | 2022-09-22 10:52 | A.OFFVIS_ITS ---
Intake Vital Signs 09/22/22 11:10 Height 5 ft 4 in BP 116/74 Blood Pressure Location Rt brachial Position Sitting Pulse 78 Pulse Source Pulse Oximeter Pulse Oximetry (%) 98 Oxygen Delivery Method Room Air Intake Visit Reasons: NPV-[place] of cerebral infarction-LVM Intake Note: patient presents for evaluation s/p cerebral infarction Allergies acetaminophen [Vicodin] Allergy (Unknown, Verified 09/22/22 10:55) tongue swells, hives on bottom of feet adhesive tape [Adhesive Tape] Allergy (Unknown, Verified 09/22/22 10:55) Rash hydrocodone [Vicodin] Allergy (Unknown, Verified 09/22/22 10:55) tongue swells, hives on bottom of feet latex [Latex] Allergy (Unknown, Verified 09/22/22 10:55) Rash, red blisters penicillin V Allergy (Unknown, Verified 09/22/22 10:55) hives, rash Penicillins Allergy (Unknown, Verified 09/22/22 10:55) Rash, Nausea and Vomiting Sulfa (Sulfonamide Antibiotics) Allergy (Unknown, Verified 09/22/22 10:55) Hives, rash amphetamine [Adderall] Adverse Reaction (Unknown, Verified 09/22/22 10:55) diarrhea dextroamphetamine [Adderall] Adverse Reaction (Unknown, Verified 09/22/22 10:55) diarrhea morphine [MORPHINE] Adverse Reaction (Unknown, Verified 09/22/22 10:55) Nausea and Vomiting phenobarbital [Phenobarbital] Adverse Reaction (Unknown, Verified 09/22/22 10:55) extreme hyperactivity meperidine [From Demerol] Adverse Reaction (Verified 09/22/22 10:55) Vomiting Medication List - Last Reconciled 09/22/22 by Anisa Navarro MD amlodipine 5 mg PO DAILY ascorbic acid (vitamin C) 1,000 mg PO DAILY 90 days aspirin 81 mg PO DAILY atorvastatin 80 mg PO BEDTIME 30 days chlorthalidone 50 mg PO DAILY clonidine 1 patch transdermal BANKS ertapenem grams IV Q24H estradiol 0.01%(0.1mg/gram) vaginally 3 times a week; pea sized amount to urethra 3 times a week 30 days hydrocortisone 1% 1 appl See Protocol topical BID lisinopril 20 mg PO DAILY metoprolol succinate ER 75 mg (3 x 25 mg) PO DAILY quetiapine ER 100 mg PO BEDTIME tolterodine ER 4 mg PO DAILY 30 days zolpidem 5 mg PO BEDTIME HPI HPI Comments History of Present Illness Details 66y/o female comes for neurological evaluation . SHe has a stroke 1 year ago - was admitted at [facility] . Her main symptoms were epsiodes of confusion , expressive aphasia , apraxia. she was evaluated by Vascular neurologist. Her work up showed Left MCA infarct ( posterior left insular cortex and small foci in left parietal lobe) Left MCA distal occlusion in M2 . No ulcerated lesions seen . Carotid doppler showed 1- 49% left. Cardiology evaluation was inconclusive. Her speech has improved since then and she is still on speech therapy. No focal weakness, numbness, vertigo , diplopia etc. she is on aspirin 81mg qd and atorvostatin 80mg qd On arrival to ER her BP was 170/110 and she was in sinus tachycardia. Sleep study could not be done due to transportation issues. she has snoring and hypersomnia. [facility] Medical History (Updated 09/22/22 @ 11:45 by Anisa Navarro MD) Bipolar 1 disorder Cholelithiasis CKD (chronic kidney disease) stage 2, GFR 60-89 ml/min COVID-19 vaccination declined Dysgraphia Dyslipidemia Dyspareunia in female Elevated blood pressure reading in office with diagnosis of hypertension Essential hypertension Expressive aphasia Expressive aphasia Gestational diabetes History of CVA (cerebrovascular accident) History of CVA with residual deficit Hx of uterine prolapse Hypersomnia Hypotonic bladder Impaired fasting glucose Multiple allergies Osteoarthritis of knees, bilateral Osteoporosis Overactive bladder Psoriasis Rectocele Recurrent urinary tract infection Refused influenza vaccine Snoring Stroke Urge incontinence Urinary tract infection Surgical History H/O rectocele repair History of Maloney urethropexy History of total left knee replacement (TKR) History of total right knee replacement (TKR) Hx of total vaginal hysterectomy Family History Father Diabetes mellitus CHF (congestive heart failure) Mother FH: stomach cancer Crohn disease Son Mental health disorder Social History Household Members: Children Housing: Apartment Do you presently have visiting nurse or other home services: Yes Patient Tobacco Use Status: Former Tobacco user Quit Date: 07/22/22 e-Cigarette/Vaping Use: Never Used Second Hand Smoke Exposure: No service: No Current occupational status: disabled Cognitive needs: No Hearing needs: No Vision needs: No Review of Systems Const Details: Const Denies chills, Denies fatigue, Denies fever(s), Denies headache(s) and Denies weakness ENT Denies dizziness and Denies headache(s) Card Denies chest pain, Denies lightheadedness, Denies dyspnea and Denies other (Palpitations) Resp Denies cough, Denies dyspnea, Denies wheezing and Denies other ( shortness of breath) GI Denies abdominal pain, Denies melena, Denies hematochezia, Denies change in bowel habits, Denies dyspepsia and Denies nausea Denies hematuria and Denies dysuria Musc Denies abnormal gait, Denies myalgias, Denies arthralgias, Denies numbness and Denies tingling Skin/Breast Denies rash, Denies unusual bruising and Denies wounds Neuro Denies abnormal gait, Denies dizziness, Denies headache(s), Denies memory loss, Denies numbness, Denies Sensory deficit (Neuro), Denies tingling and Denies weakness Psych Denies anxiety and Denies depression Endo Denies fatigue Aller/Immun Denies wheezing Physical Exam Vital Signs: Last Vital Signs Pulse 78 09/22/22 11:10 BP 116/74 09/22/22 11:10 Pulse Ox 98 09/22/22 11:10 Oxygen Delivery Method Room Air 09/22/22 11:10 Const Orientation/consciousness: oriented to person and oriented to place Eyes Pupils: Equal, round and reactive pupils present Neuro Other: Speech- nonfluent, naming OK - slow, unable to read , mild difficulty with 3 step commands, difficulty writing ( slow but was able to write a pharse) General: oriented to person, oriented to place, tone normal and moves all extremities Cranial nerves: Yes Facial sensation intact/muscles of mastication intact, Yes Equal, round and reactive pupils present, No Bilaterally intact EOM present, Yes Nystagmus not present and Yes Normal facial strength present Cognition (Neuro): abnormal cognition Gait exam (Neuro): Antalgic gait present Motor exam (neuro): 5/5 motor strength present throughout and Normal motor muscle tone present throughout Deep tendon reflexes (DTR's): Right triceps reflex intensity grade: 1+, Left triceps reflex intensity grade: 1+, Rt Biceps (C5, C6): 1+, Left biceps reflex intensity grade: 1+, Right brachioradialis reflex intensity grade: 1+, Left brachioradialis reflex intensity grade: 1+, Right patellar reflex intensity grade: 1+ and Left patellar reflex intensity grade: 1+ Coordination: [id number] test normal Assessment & Plan Assessment & Plan (1) Dysgraphia: Code(s): R27.8 - Other lack of coordination (2) Expressive aphasia: Code(s): R47.01 - Aphasia (3) History of CVA with residual deficit: Comment: dyslexia, dysgraphia, apraxia, expressive aphasia Code(s): I69.30 - Unspecified sequelae of cerebral infarction (4) Snoring: Code(s): R06.83 - Snoring (5) Hypersomnia: Code(s): G47.10 - Hypersomnia, unspecified Plan Continue speech therapy continue aspirin 81mgqd Atorvastatin 80mg qd maintain LDL below 70 SLeep study to r/o sleep apnea Orders: Orders RT PSG in-lab sleep study Today G47.10 - Hypersomnia, unspecified, I10 - Essential (primary) hypertension, R06.83 - Snoring, Z86.73 - Personal history of transient ischemic attack (TIA), and cerebral infarction without residual deficits Coding Level of Care Code New Pt Level 4 (99279) Diagnoses Dysgraphia R27.8 Expressive aphasia R47.01 History of CVA with residual deficit I69.30 Snoring R06.83 Hypersomnia G47.10
[2022-09-22 11:10] VITALS: BP 116/74; PULSE 78; O2SAT 98
== END 2022-09-22 11:50 | disposition home or self-care (01) ==
PROVIDERS: Visit Provider Psychiatry & Neurology Neurology
DX: R27.8 Other lack of coordination (principal); R47.01 Aphasia; I69.30 Unspecified sequelae of cerebral infarction; R06.83 Snoring; G47.10 Hypersomnia, unspecified
CPT/HCPCS: 99204

== ENCOUNTER → 2022-09-22 10:30 | Outpatient (BNVA) | payer OTHER, SELFPAY | PROVIDERS: Visit Provider Psychiatry & Neurology Neurology | DX: I69.30 Unspecified sequelae of cerebral infarction (principal); R27.8 Other lack of coordination; R47.01 Aphasia; R06.83 Snoring; G47.10 Hypersomnia, unspecified | CPT/HCPCS: 99202 ==

== ENCOUNTER 2022-09-30 11:48 | Outpatient (REF) | payer OTHER, SELFPAY ==
[2022-09-30 13:13] LABS: Appearance Urine Turbid; Color Urine Yellow; Glucose Urine UA Negative (Negative); Leukocyte Esterase Urine Large (3+) (Negative); Nitrite Urine Positive (Negative); PH 5.5 (5.0-9.0); Specific Gravity - Urine 1.015 (1.005-1.025); UMIC TRIGGER UA YES; Urine Blood Large (3+) (Negative); Urine Ketones Trace mg/dL (Negative); Urine Protein 300 (3+) mg/dL (Neg-Trace)
[2022-09-30 13:36] LABS: Bacteria Urine 4+ (None Seen); Hyaline Casts Urine 0-2 /LPF (0-2); RBC Urine >20 /HPF (0-2); WBC Urine >50 /HPF (0-5)
== END 2022-09-30 11:49 | disposition home or self-care (01) ==
LOC: HO.LAB 11:48
PROVIDERS: Nurse Practitioner Family; PCP Nurse Practitioner Family; Visit Provider Nurse Practitioner Family
DX: N39.0 Urinary tract infection, site not specified (principal)
CPT/HCPCS: 81001; 87086

== ENCOUNTER 2022-10-07 14:07 | Outpatient (REF) | payer OTHER, SELFPAY ==
[2022-10-07 15:50] LABS: Appearance Urine Turbid; Color Urine Yellow; Glucose Urine UA Negative (Negative); Leukocyte Esterase Urine Large (3+) (Negative); Nitrite Urine Positive (Negative); PH 5.5 (5.0-9.0); Specific Gravity - Urine 1.015 (1.005-1.025); UMIC TRIGGER UA YES; Urine Blood Small (1+) (Negative); Urine Ketones Negative (Negative); Urine Protein Trace mg/dL (Neg-Trace)
[2022-10-07 15:56] LABS: Bacteria Urine 4+ (None Seen); Hyaline Casts Urine 0-2 /LPF (0-2); WBC Urine >50 /HPF (0-5)
== END 2022-10-07 14:08 | disposition home or self-care (01) ==
LOC: HO.LAB 14:07
PROVIDERS: Visit Provider Nurse Practitioner Family
DX: N39.0 Urinary tract infection, site not specified (principal)
CPT/HCPCS: 81001; 87086; 87088; 87186

== ENCOUNTER → 2022-10-22 19:30 | Outpatient (REF) | payer OTHER, SELFPAY | LOC: HO.SL 19:30 | PROVIDERS: PCP Nurse Practitioner Family; Visit Provider Psychiatry & Neurology Neurology | DX: R06.83 Snoring (principal); G47.10 Hypersomnia, unspecified; I10 Essential (primary) hypertension; Z86.73 Personal history of transient ischemic attack (TIA), and cerebral infarction without residual deficits | CPT/HCPCS: 95810 ==

== ENCOUNTER → 2022-10-22 22:02 | Outpatient (BNV) | payer OTHER, SELFPAY | PROVIDERS: PCP Nurse Practitioner Family; Visit Provider Psychiatry & Neurology Neurology | DX: G47.33 Obstructive sleep apnea (adult) (pediatric) (principal) | CPT/HCPCS: 95810 ==

== ENCOUNTER 2022-11-11 10:33 | Outpatient (REF) | payer OTHER, SELFPAY ==
[2022-11-11 11:03] LABS: MANUAL DIFF FLAG NO
[2022-11-11 11:26] LABS: Basophils Absolute Auto 0.1 X10*3/uL (0.0-0.2); Basophils Percent Auto 0.6 % (0-2); Eosinophils Absolute Auto 0.3 X10*3/uL (0.0-0.4); Eosinophils Percent Auto 2.4 % (0-4); Hematocrit 39.4 % (37.0-47.0); Hemoglobin 12.8 g/dl (12.0-16.0); Imm Gran Abs Auto 0.03 X10*3/uL (0.00-0.03); Imm Gran Pct Auto 0.3 % (0.0-0.4); Immature Retic Fraction 6.5 % (3.0-15.9); Lymphocytes Absolute Auto 2.3 X10*3/uL (1.2-4.9); Lymphocytes Percent Auto 21.4 % (20-40); Mean Corpuscular HGB Conc 32.5 g/dl (31.0-35.0); Mean Corpuscular Hemoglobin 30.8 pg (27.0-33.0); Mean Corpuscular Volume 94.7 fL (80.0-98.0); Mean Platelet Volume 9.4 fL (9.4-12.3); Monocytes Absolute Auto 0.6 X10*3/uL (0.1-1.2); Monocytes Percent Auto 5.2 % (2-11); Neutrophils Absolute Auto 7.6 x10*3/uL (2.0-8.3); Neutrophils Percent Auto 70.1 % (45-73); Platelet Count 319 X10*3/uL (160-400); Red Blood Count 4.16 X10*6/uL (4.20-5.50); Red Cell Distribution Width 12.4 % (11.0-16.0); Retic HGB Equivalent 36.5 pg (30.0-35.0); Reticulocyte Percent 1.7 % (0.5-1.8); White Blood Count 10.8 X10*3/uL (4.8-10.8)
[2022-11-11 11:44] LABS: Anion Gap 13 (12-20); Blood Urea Nitrogen 25 mg/dL (9-16); Calcium 9.7 mg/dL (8.4-10.2); Carbon Dioxide 26 mmol/L (22-29); Chloride 104 mmol/L (96-108); Cholesterol 126 mg/dL (<200); Estimated Glomerular Filt Rate 36; Glucose Fasting 132 mg/dL (60-99); Glucose Random 132 mg/dL (60-115); HDL Cholesterol 41 mg/dL (>40); Iron 65 mcg/dL (30-160); LDL Cholesterol Calculated 63 mg/dL (<100); Percent Iron Saturation 26 % (15-50); Phosphorus 2.8 mg/dL (2.7-4.5); Potassium 3.7 mmol/L (3.3-5.1); Sodium 139 mmol/L (135-145); Total Iron Binding Capacity 251 mcg/dL (228-428); Triglycerides 114 mg/dL (<150); Unsaturated Iron Binding 186 ug/dL
[2022-11-11 12:04] LABS: Ferritin 198 ng/mL (10-250)
[2022-11-15 11:59] LABS: Prot Elec - Albumin 4.3 g/dL (3.8-4.8); Prot Elec - Alpha1 0.4 g/dL (0.2-0.3); Prot Elec - Alpha2 0.9 g/dL (0.5-0.9); Prot Elec - Beta 1 0.5 g/dL (0.4-0.6); Prot Elec - Beta 2 0.4 g/dL (0.2-0.5); Prot Elec - Total Protein 7.3 g/dL (6.1-8.1)
[2022-11-15 13:59] LABS: Calcium (PTHI) 9.5 mg/dL (8.6-10.4); PTHI 137 pg/mL (16-77)
== END 2022-11-11 10:34 | disposition home or self-care (01) ==
LOC: HO.LAB 10:33
PROVIDERS: PCP Nurse Practitioner Family; Visit Provider Internal Medicine Endocrinology, Diabetes & Metabolism
DX: D64.9 Anemia, unspecified (principal); M81.0 Age-related osteoporosis without current pathological fracture; E78.5 Hyperlipidemia, unspecified
CPT/HCPCS: 36415; 80048; 80061; 82728; 82947; 83540; 83970; 84100; 84165; 85025; 85045; 86335

== ENCOUNTER 2022-11-13 11:10 | Outpatient (REF) | payer OTHER, SELFPAY ==
[2022-11-13 11:41] LABS: Creatinine, mg/dL 58.72
[2022-11-13 11:48] LABS: Creatinine, 24Hr Urine 0.6 G/Day (1.0-2.0); Total Volume 24 Hour Urine 1000 mL
[2022-11-15 20:23] LABS: Calcium, 24 Hr Urine 21 mg/24 h; Calcium/Creatinine Ratio 36 mg/g creat (30-275); Creatinine 24Hr Urine 0.58 g/24 h (0.50-2.15)
== END 2022-11-13 11:11 | disposition home or self-care (01) ==
LOC: HO.LNP 11:10
PROVIDERS: Visit Provider Internal Medicine Endocrinology, Diabetes & Metabolism
DX: M81.0 Age-related osteoporosis without current pathological fracture (principal)
CPT/HCPCS: 82340; 82570

== ENCOUNTER 2022-11-16 15:12 | Outpatient (AMB) | payer OTHER, SELFPAY ==
[2022-11-16 15:14] VITALS: BP 116/70; PULSE 61; BMI 33.5
--- NOTE | 2022-11-16 15:14 | A.OFFVIS_ITS ---
Intake Vital Signs 11/16/22 15:14 Height 5 ft 4 in Weight 195 lb 5.273 oz BMI 33.5 BP 116/70 Blood Pressure Location Lt brachial Position Sitting Pulse 61 Pulse Source Pulse Oximeter Intake Visit Reasons: f/u osteoporosis/Confirmed Intake Note: Patient present for Osteoporosis follow up visit. 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: No Accompanied by: Self / Same As Patient Allergies acetaminophen [Vicodin] Allergy (Unknown, Verified 11/16/22 15:20) tongue swells, hives on bottom of feet adhesive tape [Adhesive Tape] Allergy (Unknown, Verified 11/16/22 15:20) Rash hydrocodone [Vicodin] Allergy (Unknown, Verified 11/16/22 15:20) tongue swells, hives on bottom of feet latex [Latex] Allergy (Unknown, Verified 11/16/22 15:20) Rash, red blisters penicillin V Allergy (Unknown, Verified 11/16/22 15:20) hives, rash Penicillins Allergy (Unknown, Verified 11/16/22 15:20) Rash, Nausea and Vomiting Sulfa (Sulfonamide Antibiotics) Allergy (Unknown, Verified 11/16/22 15:20) Hives, rash amphetamine [Adderall] Adverse Reaction (Unknown, Verified 11/16/22 15:20) diarrhea dextroamphetamine [Adderall] Adverse Reaction (Unknown, Verified 11/16/22 15:20) diarrhea morphine [MORPHINE] Adverse Reaction (Unknown, Verified 11/16/22 15:20) Nausea and Vomiting phenobarbital [Phenobarbital] Adverse Reaction (Unknown, Verified 11/16/22 15:20) extreme hyperactivity meperidine [From Demerol] Adverse Reaction (Verified 11/16/22 15:20) Vomiting Medication List - Last Reconciled 11/16/22 by Ziggy Ledezma MD amlodipine 5 mg PO DAILY ascorbic acid (vitamin C) 1,000 mg PO DAILY 90 days aspirin 81 mg PO DAILY atorvastatin 80 mg PO BEDTIME 30 days chlorthalidone 50 mg PO DAILY 30 days ertapenem grams IV Q24H estradiol 0.01%(0.1mg/gram) vaginally 3 times a week; pea sized amount to urethra 3 times a week 30 days hydrocortisone 1% 1 appl See Protocol topical BID lisinopril 20 mg PO DAILY metoprolol succinate ER 75 mg (3 x 25 mg) PO DAILY quetiapine ER 100 mg (2 x 50 mg) PO BEDTIME 30 days tolterodine ER 4 mg PO DAILY 90 days zolpidem 5 mg PO BEDTIME 30 days HPI HPI Comments History of Present Illness Details 66 YO Female with PMHx CKD stage 2 is seen in consultation at the request of PCP for Osteoporosis. First diagnosed in recently . Received treatment in the past with Ev[facility] ,for 1 yr still on . Tolerated treatment well without complication. No history of pathologic fracture or ONJ. Has severla servings of dietary calcium per day in the form of daily. Not Takes Calcium supplement Takes ? IU of Vitamin D daily in MVI . Denies ever using PPI, anticoagulant, antiepileptic or glucocorticoid medication. Does weight bearing exercise 7 days per week in the form of walking . 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 Has false teeth No planned upcoming dental work or extractions. DXA dated 07/07/21 :FINDINGS: AP SPINE L1-L4: Current: BMD 1.011 g/cm2, Z-score -0.7, T-score -1.4, osteopenia, 4.1% increase from previous, 1.9% increase from baseline (<5% change is not significant). Prior: BMD 0.971 g/cm2. Baseline: BMD 0.992 g/cm2. LEFT FEMUR, NECK: Current: BMD 0.691 g/cm2, Z-score -1.6, T-score -2.5, osteoporosis. Prior: BMD 0.631 g/cm2. Baseline: BMD 0.643 g/cm2. LEFT FEMUR, TOTAL: Current: BMD 0.679 g/cm2, Z-score -2.1, T-score -2.6, osteoporosis, 13.7% increase from previous, 2.0% incre ase from baseline (<5% change is not significant). Prior: BMD 0.597 g/cm2. Baseline: BMD 0.666 g/cm2. IDENTIFIED RISK FACTORS: Early menopause, secondary osteoporosis, osteoporosis, renal, tobacco use (current smoker), hysterectomy. HISTORY OF FRACTURE: None listed. MEDICATIONS: Calcium or multivitamin. MM/XR DEXA axial skeleton IMPRESSION: 1. DIAGNOSIS: Osteoporosis based on the lowest T-score value of -2.6 in the total femur applying World Health Organization criteria.? ? Labs: [facility] Medical History (Updated 10/29/22 @ 14:59 by Pa Timmons CNP) Hypersomnia Snoring Expressive aphasia Dysgraphia Stroke Multiple allergies Cholelithiasis Overactive bladder Recurrent urinary tract infection History of CVA with residual deficit Expressive aphasia History of CVA (cerebrovascular accident) Refused influenza vaccine COVID-19 vaccination declined Impaired fasting glucose Dyslipidemia Osteoporosis Psoriasis Gestational diabetes Hx of uterine prolapse Osteoarthritis of knees, bilateral Bipolar 1 disorder CKD (chronic kidney disease) stage 2, GFR 60-89 ml/min Essential hypertension Rectocele Urge incontinence Elevated blood pressure reading in office with diagnosis of hypertension Hypotonic bladder Urinary tract infection Dyspareunia in female Surgical History History of total left knee replacement (TKR) History of total right knee replacement (TKR) History of Maloney urethropexy Hx of total vaginal hysterectomy H/O rectocele repair Family History Father Diabetes mellitus CHF (congestive heart failure) Mother FH: stomach cancer Crohn disease Son Mental health disorder Social History Household Members: Children Housing: Apartment Do you presently have visiting nurse or other home services: Yes Patient Tobacco Use Status: Former Tobacco user Quit Date: 07/22/22 e-Cigarette/Vaping Use: Never Used Second Hand Smoke Exposure: No service: No Current occupational status: disabled Cognitive needs: No Hearing needs: No Vision needs: No Physical Exam Vital Signs: Last Vital Signs Pulse 61 11/16/22 15:14 BP 116/70 11/16/22 15:14 BMI result Body Mass Index 33.5 Assessment & Plan Assessment & Plan (1) Osteoporosis: Code(s): M81.0 - Age-related osteoporosis without current pathological fracture Plan: This 67-year-old white female with a history of osteoporosis with partial secondary workup in the setting of CKD stage 3 b. Plan is to have the patient follow-up with Nephrology to optimize CKD bone mineral disease including elevated PTH.. Once this is optimized could consider either use of oral bisphosphonate or Prolia depending on degree of renal disease Coding Level of Care Code Est Pt Level 3 (87203) Diagnoses Osteoporosis M81.0
== END 2022-11-16 15:47 | disposition home or self-care (01) ==
PROVIDERS: PCP Nurse Practitioner Family; Visit Provider Internal Medicine Endocrinology, Diabetes & Metabolism
DX: M81.0 Age-related osteoporosis without current pathological fracture (principal)
CPT/HCPCS: 99213

== ENCOUNTER → 2022-11-16 15:12 | Outpatient (BNVA) | payer OTHER, SELFPAY | PROVIDERS: Visit Provider Internal Medicine Endocrinology, Diabetes & Metabolism | DX: M81.0 Age-related osteoporosis without current pathological fracture (principal); N18.2 Chronic kidney disease, stage 2 (mild); Z72.0 Tobacco use; Z97.2 Presence of dental prosthetic device (complete) (partial); Z78.0 Asymptomatic menopausal state; Z90.710 Acquired absence of both cervix and uterus; Z79.810 Long term (current) use of selective estrogen receptor modulators (SERMs) | CPT/HCPCS: 99212 ==

== ENCOUNTER → 2022-11-29 19:30 | Outpatient (REF) | payer OTHER, SELFPAY | LOC: HO.SL 19:30 | PROVIDERS: PCP Nurse Practitioner Family; Visit Provider Nurse Practitioner Family | DX: G47.33 Obstructive sleep apnea (adult) (pediatric) (principal) | CPT/HCPCS: 95811 ==

== ENCOUNTER → 2022-11-29 23:31 | Outpatient (BNV) | payer OTHER, SELFPAY | PROVIDERS: PCP Nurse Practitioner Family; Visit Provider Psychiatry & Neurology Neurology | DX: G47.33 Obstructive sleep apnea (adult) (pediatric) (principal) | CPT/HCPCS: 95811 ==

== ENCOUNTER 2022-12-08 12:40 | Outpatient (AMB) | payer OTHER, SELFPAY ==
[2022-12-08 12:43] VITALS: BP 112/70; PULSE 65; RESP 18; O2SAT 97; BMI 33.3
--- NOTE | 2022-12-08 12:43 | MHC.PC.OV ---
Vital Signs 12/08/22 12:43 Height 5 ft 4 in Weight 194 lb BMI 33.3 BP 112/70 Blood Pressure Location Lt brachial Position Sitting Respiration 18 Pulse 65 Pulse Source Pulse Oximeter Pulse Oximetry (%) 97 Oxygen Delivery Method Room Air Intake Visit Reasons: 3 mos health maintenance and bipolar Intake Note: Patient is here for a 3 month follow up on health health maintenance and bipolar. Allergies acetaminophen [Vicodin] Allergy (Unknown, Verified 12/08/22 13:01) tongue swells, hives on bottom of feet adhesive tape [Adhesive Tape] Allergy (Unknown, Verified 12/08/22 13:01) Rash hydrocodone [Vicodin] Allergy (Unknown, Verified 12/08/22 13:01) tongue swells, hives on bottom of feet latex [Latex] Allergy (Unknown, Verified 12/08/22 13:) Rash, red blisters penicillin V Allergy (Unknown, Verified 12/08/22 13:01) hives, rash Penicillins Allergy (Unknown, Verified 12/08/22 13:01) Rash, Nausea and Vomiting Sulfa (Sulfonamide Antibiotics) Allergy (Unknown, Verified 12/08/22 13:01) Hives, rash amphetamine [Adderall] Adverse Reaction (Unknown, Verified 12/08/22 13:01) diarrhea dextroamphetamine [Adderall] Adverse Reaction (Unknown, Verified 12/08/22 13:) diarrhea morphine [MORPHINE] Adverse Reaction (Unknown, Verified 12/08/22 13:01) Nausea and Vomiting phenobarbital [Phenobarbital] Adverse Reaction (Unknown, Verified 12/08/22 13:01) extreme hyperactivity meperidine [From Demerol] Adverse Reaction (Verified 12/08/22 13:01) Vomiting Medication List - Last Reconciled 12/08/22 by Terese Silvestre CNP amlodipine 5 mg PO DAILY ascorbic acid (vitamin C) 1,000 mg PO DAILY 90 days aspirin 81 mg PO DAILY atorvastatin 80 mg PO BEDTIME 30 days estradiol 0.01%(0.1mg/gram) vaginally 3 times a week; pea sized amount to urethra 3 times a week 30 days lisinopril 20 mg PO DAILY metoprolol succinate ER 100 mg PO DAILY 90 days quetiapine ER 100 mg (2 x 50 mg) PO BEDTIME 30 days tolterodine ER 4 mg PO DAILY 90 days zolpidem 5 mg PO BEDTIME 30 days Tobacco use date assessed: 12/08/22 Fall risk assessment: 1 Fall in past year Last assessed Fall Risk: 12/08/22 HPI HPI Comments History of Present Illness Details 67-year-old female presents for health maintenance and bipolar follow-up. She has medical history significant for hypertension, expressive aphasia secondary to a stroke last October, dyslipidemia, CKD, hypotonic bladder, urinary incontinence, normochromic anemia, osteoarthritis, and anxiety, and bipolar. She states she sees a therapist weekly for anxiety. No acute symptoms today. She notes that she has been taking her medications as prescribed. She reports controlled anxiety and bipolar symptoms. She continues to see her therapist weekly. She also continues to have weekly speech therapy. She reports significant improvement with her speech. She continues to walk a mile every day. She states she has oophorectomy procedure schedule next week. She is excited to have the procedure done. Her fasting glucose has been elevated twice. Last fasting glucose was 132. She was on Chlorthalidone which was discontinued on 11/23/2022 per endocrinology recommendations. Her PTH level was elevated, 137 and Endocrinology believes Chlorthalidone may be a contributing factor. Therefore, the medication was discontinued and metoprolol was increased from 75 mg daily to 100 mg daily. She repeat PTH blood work 8 weeks from discontinuation of Chlorthalidone, which is in late December. She is followed by Endocrinology, Nephrology, Neurology, Urology, and financial director. [facility] Medical History (Updated 12/08/22 @ 13:27 by Terese Silvestre CNP) Hypersomnia Snoring Expressive aphasia Dysgraphia Stroke Multiple allergies Cholelithiasis Overactive bladder Recurrent urinary tract infection History of CVA with residual deficit Expressive aphasia History of CVA (cerebrovascular accident) Refused influenza vaccine COVID-19 vaccination declined Impaired fasting glucose Dyslipidemia Osteoporosis Psoriasis Gestational diabetes Hx of uterine prolapse Osteoarthritis of knees, bilateral Bipolar 1 disorder CKD (chronic kidney disease) stage 2, GFR 60-89 ml/min Essential hypertension Rectocele Urge incontinence Elevated blood pressure reading in office with diagnosis of hypertension Hypotonic bladder Urinary tract infection Dyspareunia in female Surgical History History of total left knee replacement (TKR) History of total right knee replacement (TKR) History of Maloney urethropexy Hx of total vaginal hysterectomy H/O rectocele repair Family History Father Diabetes mellitus CHF (congestive heart failure) Mother FH: stomach cancer Crohn disease Son Mental health disorder Social History Household Members: Children Housing: Apartment Do you presently have visiting nurse or other home services: Yes Patient Tobacco Use Status: Former Tobacco user Quit Date: 07/22/22 e-Cigarette/Vaping Use: Never Used Second Hand Smoke Exposure: No service: No Current occupational status: disabled Cognitive needs: No Hearing needs: No Vision needs: No Questionnaire PHQ-9 Over the last 2 weeks, how often have you been bothered by any of the following problems? 1. Little interest or pleasure in doing things: not at all 2. Feeling down, depressed, or hopeless: not at all 3. Trouble falling or staying asleep, or sleeping too much: not at all 4. Feeling tired or having little energy: not at all 5. Poor appetite or overeating: not at all 6. Feeling bad about yourself - or that you are a failure or have let yourself or your family down: not at all 7. Trouble concentrating on things, such as reading the newspaper or watching television: not at all 8. Moving or speaking so slowly that other people could have noticed. Or the opposite - being so fidgety or restless that you have been moving around a lot more than usual: not at all 9. Thoughts that you would be better off or of hurting yourself in some way: not at all Total score: 0 Source: Developed by Drs. Ziggy Martino, Mesha Frye, Eben Dacosta and colleagues, with an educational susie from [employer]. Thrive Questionnaire Date Thrive assessed: 08/13/22 JOSE-7 AMB Questionnaire JOSE-7 Date JOSE - 7 assessed: 12/08/22 Feeling nervous, anxious, or on edge: 1 = Several days Not being able to stop or control worryin = Not at all Worrying too much about different things: 0 = Not at all Trouble relaxin = Not at all Being so restless that it is hard to sit still: 0 = Not at all Becoming easily annoyed or irritable: 0 = Not at all Feeling afraid as if something awful might happen: 0 = Not at all Total JOSE-7 score (0-4 normal; 5-9 mild; 10-14 moderate; 15-21 severe): 1 Source: Developed by Drs. Ziggy Martino, Mesha Frye, Eben Dacosta and colleagues, with an educational susie from [employer]. Review of Systems Const Details: Const Denies chills, Denies fatigue, Denies fever(s), Denies headache(s) and Denies weakness ENT Denies dizziness and Denies headache(s) Card Denies chest pain, Denies lightheadedness, Denies dyspnea and Denies other (Palpitations) Resp Denies cough, Denies dyspnea, Denies wheezing and Denies other ( shortness of breath) GI Denies abdominal pain, Denies melena, Denies hematochezia, Denies change in bowel habits, Denies dyspepsia and Denies nausea Denies hematuria and Denies dysuria Musc Denies abnormal gait, Denies myalgias, Denies arthralgias, Denies numbness and Denies tingling Skin/Breast Denies rash, Denies unusual bruising and Denies wounds Neuro Denies abnormal gait, Denies dizziness, Denies headache(s), Denies memory loss, Denies numbness, Denies Sensory deficit (Neuro), Denies tingling and Denies weakness Psych Denies anxiety, Denies depression, Denies memory loss Endo Denies cold intolerance, Denies fatigue, Denies heat intolerance, Denies polydipsia and Denies polyuria Aller/Immun Denies wheezing Physical exam (Primary Care) Vital Signs: Last Vital Signs Pulse 65 12/08/22 12:43 Resp 18 12/08/22 12:43 BP 112/70 12/08/22 12:43 Pulse Ox 97 12/08/22 12:43 Oxygen Delivery Method Room Air 12/08/22 12:43 BMI result Body Mass Index 33.3 Tobacco/Smoking Status: Tobacco use Status Tobacco use date assessed 12/08/22 12/08/22 12:57 Patient Tobacco Use Status Former Tobacco user 12/08/22 12:57 e-Cigarette/Vaping Use Never Used 12/08/22 12:57 PHQ-9: PHQ-9 Score PHQ-9: Total score 0 12/08/22 13:46 Thrive Assessment: Date of Thrive Assessment Date Thrive assessed 08/13/22 12/08/22 12:57 Const Other: General: no acute distress and well developed Nutritional Appearance: well nourished Orientation/consciousness: patient oriented x3 [facility] Head: Yes normocephalic and Yes atraumatic Eyes General: appearance normal, both eyes and all related structures Pupils: Equal, round and reactive pupils present EOM: EOMs intact bilaterally Resp Effort & Inspection: normal respiratory effort Auscultation: clear to auscultation bilaterally Cardio Rate: regular rate Rhythm: regular rhythm Heart sounds: S1 normal heart sound present, S2 normal heart sound present, no gallops, no murmurs and no rubs GI Palpation (GI): No Abdominal aortic bruit present, Soft to palpation, nontender, No hepatosplenomegaly present and No Rebound tenderness present Auscultation: normal bowel sounds General: Yes no CVA tenderness Back/Spine/Pelvis Back: no CVA tenderness Cervical Spine: cervical ROM normal and No Cervical spine tenderness Thoracic/Lumbar Spine: thoraco-lumbar ROM normal, No pain with thoraco-lumbar ROM, No thoracic spinal tenderness and No lumbar spinal tenderness Extrem General: Yes normal to inspection, No edema and No calf tenderness Skin General: warm and dry. Normal skin color. Normal skin turgor Lesions: no lesions Rashes: no rashes Trauma: no lacerations or abrasions Wounds: no wounds Nails: normal Neuro General: patient oriented x3, gait normal and no focal neuro deficit Cranial nerves: Yes Equal, round and reactive pupils present Cognition (Neuro): normal cognition Gait exam (Neuro): Normal gait present Sensory Exam: No Sensory deficit (Neuro) Psych Appearance: grossly normal Affect: normal affect Attitude: cooperative Thought process: Normal thought process present Assessment and Plan Assessment & Plan (1) Hypertension: Code(s): I10 - Essential (primary) hypertension Qualifiers: Hypertension type: primary hypertension Qualified Code(s): I10 - Essential (primary) hypertension Plan: Blood pressure is controlled, 112/70, within goal of less than 130/80 Continue with current treatment regimen Low-sodium diet encouraged Continue follow-up with specialist as planned Follow-up in 3 months for health maintenance Return sooner with symptoms or concerns Verbalized understanding and agreed with treatment plan. (2) Expressive aphasia: Code(s): R47.01 - Aphasia Plan: Reports significant speech improvement Continue with weekly speech therapy Verbalized understanding and agreed with the treatment plan. (3) Bipolar 1 disorder: Comment: sees [facility] Code(s): F31.9 - Bipolar disorder, unspecified Plan: Reports controlled symptoms on Seroquel and psychotherapy Continue with current treatment regimen Routine exercise encouraged Follow-up in 3 months or return sooner with worsening or new symptoms Verbalized understanding and agreed with treatment plan. (4) Anxiety: Code(s): F41.9 - Anxiety disorder, unspecified Plan: As above (5) Pre-diabetes: Code(s): R73.03 - Prediabetes Plan: Her fasting glucose has been elevated twice. Last fasting glucose was 132. A1c today 6.3% and indicates prediabetes Patient instructed on healthy diet including limiting carbs such as rice, pasta, bread, and potatoes Routine exercise encouraged Follow-up in 3 months or return sooner with symptoms or concerns Verbalized understanding and agreed with treatment plan. Coding Level of Care Code Est Pt Level 4 (34635) Diagnoses Primary hypertension I10 Hypertension type: primary hypertension Expressive aphasia R47.01 Bipolar 1 disorder F31.9 Anxiety F41.9 Pre-diabetes R73.03
== END 2022-12-08 13:48 | disposition home or self-care (01) ==
PROVIDERS: PCP Nurse Practitioner Family; Visit Provider Nurse Practitioner Family
DX: R73.03 Prediabetes (principal); F31.9 Bipolar disorder, unspecified; I10 Essential (primary) hypertension; R47.01 Aphasia; F41.9 Anxiety disorder, unspecified
CPT/HCPCS: 83036; 99214

== ENCOUNTER 2022-12-22 13:18 | Outpatient (AMB) | payer OTHER, SELFPAY ==
--- NOTE | 2022-12-22 13:54 | A.OFFVIS_ITS ---
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 [employer] Required: No Allergies acetaminophen [Vicodin] Allergy (Unknown, Verified 12/22/22 21:31) tongue swells, hives on bottom of feet adhesive tape [Adhesive Tape] Allergy (Unknown, Verified 12/22/22 21:31) Rash hydrocodone [Vicodin] Allergy (Unknown, Verified 12/22/22 21:31) tongue swells, hives on bottom of feet latex [Latex] Allergy (Unknown, Verified 12/22/22 21:31) Rash, red blisters penicillin V Allergy (Unknown, Verified 12/22/22 21:31) hives, rash Penicillins Allergy (Unknown, Verified 12/22/22 21:31) Rash, Nausea and Vomiting Sulfa (Sulfonamide Antibiotics) Allergy (Unknown, Verified 12/22/22 21:31) Hives, rash amphetamine [Adderall] Adverse Reaction (Unknown, Verified 12/22/22 21:31) diarrhea dextroamphetamine [Adderall] Adverse Reaction (Unknown, Verified 12/22/22 21:31) diarrhea morphine [MORPHINE] Adverse Reaction (Unknown, Verified 12/22/22 21:31) Nausea and Vomiting phenobarbital [Phenobarbital] Adverse Reaction (Unknown, Verified 12/22/22 21:31) extreme hyperactivity meperidine [From Demerol] Adverse Reaction (Verified 12/22/22 21:31) Vomiting Medication List - Last Reconciled 12/22/22 by ROGER Redding-BC amlodipine 5 mg PO DAILY ascorbic acid (vitamin C) 1,000 mg PO DAILY 90 days aspirin 81 mg PO DAILY atorvastatin 80 mg PO BEDTIME 30 days estradiol 0.01%(0.1mg/gram) vaginally 3 times a week; pea sized amount to urethra 3 times a week 30 days lisinopril 20 mg PO DAILY metoprolol succinate ER 100 mg PO DAILY 90 days quetiapine ER 100 mg (2 x 50 mg) PO BEDTIME 30 days tolterodine ER 4 mg PO DAILY 90 days zolpidem 5 mg PO BEDTIME 30 days HPI HPI Comments History of Present Illness Details Bev is a pleasant 67 year-old female patient of Dr. Silvestre. She has a past medical history of bipolar, CKD stage 2, dyslipidemia, hypertension, history of CVA with expressive aphasia, osteoarthritis, recurrent urinary tract infections, and overactive bladder. She presents to the office today for follow-up regarding her frequent urinary tract infections and overactive bladder. When asked she reports to be doing and feeling well. She reports being status post laparoscopic bilateral oophorectomy [address] Elizondo. She reports to be recovering well. She denies having had any postop complications. She denies having had any UTI like symptoms or urinary tract infection since her last office visit here approximately 3 months ago. In office urinalysis results reviewed with the patient today. 3+ leukocytes negative nitrates. PVR 43 mL. When asked she denies any UTI like symptoms at this time. She reports compliance with Estrace cream, methenamine, and vitamin-C for suppression therapy. She reports be happy with current voiding parameters on 4 mg of tolterodine daily. She reports to be drinking plenty of fluid daily. She denies any issues with constipation at this time. Patient otherwise denies any urinary issues or concerns. She denies urinary hematuria, dysuria, changes to urinary stream, flank pain, fever, and or chills. She reports that since her stroke 09/2021 she continues with expressive aphasia, short-term memory loss, and trouble remembering numbers and has been doing well with therapy. [facility] Medical History Hypersomnia Snoring Expressive aphasia Dysgraphia Stroke Multiple allergies Cholelithiasis Overactive bladder Recurrent urinary tract infection History of CVA with residual deficit Expressive aphasia History of CVA (cerebrovascular accident) Refused influenza vaccine COVID-19 vaccination declined Impaired fasting glucose Dyslipidemia Osteoporosis Psoriasis Gestational diabetes Hx of uterine prolapse Osteoarthritis of knees, bilateral Bipolar 1 disorder CKD (chronic kidney disease) stage 2, GFR 60-89 ml/min Essential hypertension Rectocele Urge incontinence Elevated blood pressure reading in office with diagnosis of hypertension Hypotonic bladder Urinary tract infection Dyspareunia in female Surgical History History of total left knee replacement (TKR) History of total right knee replacement (TKR) History of Maloney urethropexy Hx of total vaginal hysterectomy H/O rectocele repair Family History Father Diabetes mellitus CHF (congestive heart failure) Mother FH: stomach cancer Crohn disease Son Mental health disorder Social History Household Members: Children Housing: Apartment Do you presently have visiting nurse or other home services: Yes Patient Tobacco Use Status: Former Tobacco user Quit Date: 07/22/22 e-Cigarette/Vaping Use: Never Used Second Hand Smoke Exposure: No service: No Current occupational status: disabled Cognitive needs: No Hearing needs: No Vision needs: No Review of Systems Const Reports as per HPI Eyes Reports no additional complaints ENT Reports no additional complaints Card Reports no additional complaints Resp Reports no additional complaints GI Details: Reports no additional complaints Reports as per HPI Musc Reports no additional complaints Neuro Reports as per HPI Endo Reports no additional complaints Physical Exam Const General: cooperative, healthy appearing, comfortable, no acute distress, well developed, alert and awake Orientation/consciousness: patient oriented x3 Limitations: no limitations HEENT Head: Yes normal to inspection, Yes normocephalic and Yes atraumatic Ears: hearing grossly normal bilaterally Eyes General: appearance normal, both eyes and all related structures Neck Neck: Yes normal visual inspection and Yes trachea midline Chest Chest palpation & inspection: normal inspection of the chest Resp Effort & Inspection: normal respiratory effort and able to speak in complete sentences Cardio Rate: regular rate GI Inspection: Yes normal to inspection General: Yes no CVA tenderness Back/Spine/Pelvis Back: no CVA tenderness Thoracic/Lumbar Spine: thoracic and lumbar spine normal to inspection Skin General skin exam: no rashes or lesions noted Neuro General: patient oriented x3 Speech: Expressive aphasia present Gait exam (Neuro): Normal gait present Extrem General: Yes normal to inspection Psych Appearance: grossly normal and well kempt Speech and movement: Clear speech present and Pressured speech present Attitude: cooperative Thought process: Normal thought process present Thought content: Normal thought content present Insight: Fair insight present (Psych) Judgement: Fair judgement present (Psych) Office Procedures Post Void Residual Post Residual Void Post Void Residual (PVR): 43 [id number] Void Residual by ultrasound Results AMB Urinalysis, Automated UA Leukoctes 500 Emiliano/uL Last Edit by Jermaine Rosario on 12/22/22 14:11 UA Nitrite Negative Last Edit by Jermaine Rosario on 12/22/22 14:11 UA Urobilinogen 0.2 mg/dL Last Edit by Jermaine Rosario on 12/22/22 14:11 UA Protein 15 mg/dL Last Edit by Jermaine Rosario on 12/22/22 14:11 UA pH 6.0 Last Edit by Jermaine Rosario on 12/22/22 14:11 UA Blood 10 Maximiliano/uL Last Edit by Jermaine Rosario on 12/22/22 14:11 UA Specific [place] 1.010 Last Edit by Jermaine Rosario on 12/22/22 14:11 UA Ketone Negative Last Edit by Jermaine Rosario on 12/22/22 14:11 UA Bilirubin 0 mg/dL Last Edit by Jermaine Rosario on 12/22/22 14:11 UA Glucose 0 mg/dL Last Edit by Jermaine Rosario on 12/22/22 14:11 Results Reviewed Results Reviewed: Laboratory Last Values Urine pH (Auto) 6.0 12/22/22 14:00 Specific [place] (Auto) 1.010 12/22/22 14:00 Urine Protein (Auto) 15 mg/dL 12/22/22 14:00 Glucose (UA)(Auto) 0 mg/dL 12/22/22 14:00 Urine Ketones (Auto) Negative 12/22/22 14:00 Urine Blood (Auto) 10 Maximiliano/uL 12/22/22 14:00 Urine Nitrite (Auto) Negative 12/22/22 14:00 Urine Bilirubin (Auto) 0 mg/dL 12/22/22 14:00 Urine Urobilinogen (Auto) 0.2 mg/dL 12/22/22 14:00 Leukocyte Esterase (Auto) 500 Emiliano/uL 12/22/22 14:00 Assessment & Plan Assessment & Plan (1) Complicated urinary tract infection: Code(s): N39.0 - Urinary tract infection, site not specified (2) Overactive bladder: Code(s): N32.81 - Overactive bladder (3) Recurrent urinary tract infection: Code(s): N39.0 - Urinary tract infection, site not specified Plan In office urinalysis results reviewed with the patient today; as noted above; will send for urine culture. Patient denies any UTI like symptoms at this time. Educated encouraged to continue drinking plenty of water daily. Continue with Estrace cream, methenamine, and vitamin-C as discussed and prescribed. She denies any bothersome urinary issues or concerns at this time. She reports to be happy with current voiding parameters; on tolterodine 4 mg daily Follow-up in 3 months with PVR; or sooner with any issues, concerns, and or questions. Orders: Orders AMB Urinalysis Automated Today Z13.9 - Encounter for screening, unspecified AMB Post Void Residual by ultrasound Today N32.81 - Overactive bladder Urine Culture Today N39.0 - Urinary tract infection, site not specified Patient Instructions: The patient had an opportunity to ask questions regarding the treatment plan. All questions were answered. Physical exam, labs, and imaging were discussed and reviewed in detail. As well as risks, benefits, and discussion of treatment choices. No major barriers to understanding were identified. The patient expressed understanding and agreement with the above treatment plan. The patient was made aware they should contact our office by phone for worsening of their current condition, the appearance of new symptoms, or with any questions or concerns. Compliance is encouraged with any medications and follow up testing that is ordered. It is a privilege to be allowed the opportunity to participate in? your urological care.? Again, if you have any questions or concerns If you have any questions or concerns please do not hesitate to contact me. The office is [phone]. This note is constructed using voice recognition software. While every effort has been made to ensure accuracy control panel builder errors may have been included. Yours sincerely, GENEVA Redding Coding Level of Care Code Est Pt Level 3 (28635) Diagnoses Complicated urinary tract infection N39.0 Overactive bladder N32.81 Recurrent urinary tract infection N39.0 CPT Codes Post Residual Void - PVR CPT Code: 23550-Rfrb Void Residual by ultrasound ([id number])
== END 2022-12-22 14:30 | disposition home or self-care (01) ==
PROVIDERS: PCP Nurse Practitioner Family; Visit Provider Nurse Practitioner Family
DX: N39.0 Urinary tract infection, site not specified (principal); N32.81 Overactive bladder
CPT/HCPCS: 99213

== ENCOUNTER 2022-12-22 13:18 | Outpatient (REF) | payer OTHER, SELFPAY | END 2022-12-22 13:19 | disposition home or self-care (01) | LOC: HO.LAB 13:18 | PROVIDERS: PCP Nurse Practitioner Family; Visit Provider Nurse Practitioner Family | DX: N39.0 Urinary tract infection, site not specified (principal); N32.81 Overactive bladder | CPT/HCPCS: 51798; 81003; 87086; 87088; 87186; 99212 ==

== ENCOUNTER 2022-12-23 13:00 | Outpatient (RCR) | payer MEDICARE, OTHER, MEDICAID, SELFPAY ==
--- NOTE | 2023-01-28 15:38 | MHC.SPEECHCO ---
Bev has shown progress since starting speech therapy; most noticeably in word finding, expressive language, and self-advocacy skills. Bev is motivated to continue to make improvements in speech therapy. She consistently participates in weekly speech therapy sessions and at home practice. Recently, medication management has been a target of cognitive-linguistic therapy. It is recommended that Bev continue to participate in 1:1 speech and language therapy in the outpatient setting 1X weekly. The following goals/objectives are recommended: LTG 1 Bev will complete further standardized testing to obtain standardized scores and update language and cognitive goals as appropriate. ? Bev will complete the BDAE with 100% completion to better inform goals. ? Bev will complete the CLQT with 100% completion to better inform goals in the area of attention and memory. LTG 2 Bev will improve self-advocacy to increase opportunities to participate in and understand conversations. ? Bev will independently request more time (vocally or with gesture) in order to process information or find correct words within communicative interactions in 80% of opportunities. LTG 3 Bev will improve expressive and receptive language skills. ? Bev will follow verbal or written 2-step command with no more than 1 repetition when provided with gestural support with 80% accuracy. ? Bev will name functional items with moderate support (i.e. phonemic cues) with 80% accuracy during confrontational naming tasks. ? Bev will complete functional written language tasks (i.e. email or text conversations, filling out paperwork, etc.) when provided with minimal support with 80% accuracy. ? When dictated numbers and letters, Bev will write the correct target with 80% accuracy. ? When presented with numbers and letters orthographically, Bev will verbally state the correct target with 80% accuracy. LTG 4 Bev will improve cognitive skills in the area of memory and attention ? When presented with a string of 5 letters/numbers, Bev will accurately recall list with minimal support and in 80% of opportunities. ? Bev will complete functional alternating attention tasks at 80% accuracy in a noisy/distracting environment
== END 2023-02-22 12:39 | disposition home or self-care (01) ==
LOC: HO.SH 13:00
PROVIDERS: Visit Provider Internal Medicine
DX: R47.01 Aphasia (principal); I69.30 Unspecified sequelae of cerebral infarction
CPT/HCPCS: 92507

== ENCOUNTER 2023-03-14 15:07 | Outpatient (AMB) | payer OTHER, SELFPAY ==
--- NOTE | 2023-03-14 15:08 | MHC.PC.OV ---
Vital Signs 03/14/23 15:09 03/14/23 15:35 Height 5 ft 4 in Weight 193 lb BMI 33.1 BP 152/88 H 136/80 Blood Pressure Location Rt brachial Rt brachial Position Sitting Sitting Pulse 85 Pulse Source Pulse Oximeter Pulse Oximetry (%) 97 Oxygen Delivery Method Room Air Intake Visit Reasons: [place] [facility] 03/05/23 - chest infection Intake Note: Pt is here for HDF for a chest infection Allergies acetaminophen [Vicodin] Allergy (Unknown, Verified 03/14/23 15:44) tongue swells, hives on bottom of feet adhesive tape [Adhesive Tape] Allergy (Unknown, Verified 03/14/23 15:44) Rash hydrocodone [Vicodin] Allergy (Unknown, Verified 03/14/23 15:44) tongue swells, hives on bottom of feet latex [Latex] Allergy (Unknown, Verified 03/14/23 15:44) Rash, red blisters penicillin V Allergy (Unknown, Verified 03/14/23 15:44) hives, rash Penicillins Allergy (Unknown, Verified 03/14/23 15:44) Rash, Nausea and Vomiting Sulfa (Sulfonamide Antibiotics) Allergy (Unknown, Verified 03/14/23 15:44) Hives, rash amphetamine [Adderall] Adverse Reaction (Unknown, Verified 03/14/23 15:44) diarrhea dextroamphetamine [Adderall] Adverse Reaction (Unknown, Verified 03/14/23 15:44) diarrhea morphine [MORPHINE] Adverse Reaction (Unknown, Verified 03/14/23 15:44) Nausea and Vomiting phenobarbital [Phenobarbital] Adverse Reaction (Unknown, Verified 03/14/23 15:44) extreme hyperactivity meperidine [From Demerol] Adverse Reaction (Verified 03/14/23 15:44) Vomiting Medication List - Last Reconciled 03/14/23 by Terese Silvestre CNP amlodipine 5 mg PO DAILY 90 days ascorbic acid (vitamin C) 1,000 mg PO DAILY 90 days aspirin 81 mg PO DAILY atorvastatin 80 mg PO BEDTIME 30 days estradiol 0.01%(0.1mg/gram) vaginally 3 times a week; pea sized amount to urethra 3 times a week 30 days lisinopril 20 mg PO DAILY methenamine hippurate 1 g PO daily 90 days metoprolol succinate ER 100 mg PO DAILY 90 days quetiapine ER 100 mg (2 x 50 mg) PO BEDTIME 30 days tolterodine ER 4 mg PO DAILY 90 days zolpidem 5 mg PO BEDTIME 30 days Tobacco use date assessed: 03/14/23 Fall risk assessment: 1 Fall in past year Last assessed Fall Risk: 03/14/23 Dental Screening Dental Screen Date: 03/14/23 Did you have a dental visit in the last 12 months?: No Did you have a dental problem in the last 6 months where you did not have access to dental care?: No Was dental information given to patient?: No HPI HPI Comments History of Present Illness Details 67-year-old female presents for a follow-up visit She presents to [facility] ED on 01/18/2023 for left breast pain. She was diagnosed with left breast cellulitis and abscess and was transferred to [facility] for further evaluation and treatment. 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 She notes that her gallbladder was removed. She is followed by infectious disease, breast surgery, and Trauma surgery. She was discharged to rehab/SNF for management of her breast wound. She was in rehab x 2 week and was discharged last Tuesday She reports soreness to the left chest area s/p mastectomy. She notes that she has been taking ibuprofen as instructed She states that she currently receives home care services with nursing for daily wound care, PT, and OT PFS Medical History Hypersomnia Snoring Expressive aphasia Dysgraphia Stroke Multiple allergies Cholelithiasis Overactive bladder Recurrent urinary tract infection History of CVA with residual deficit Expressive aphasia History of CVA (cerebrovascular accident) Refused influenza vaccine COVID-19 vaccination declined Impaired fasting glucose Dyslipidemia Osteoporosis Psoriasis Gestational diabetes Hx of uterine prolapse Osteoarthritis of knees, bilateral Bipolar 1 disorder CKD (chronic kidney disease) stage 2, GFR 60-89 ml/min Essential hypertension Rectocele Urge incontinence Elevated blood pressure reading in office with diagnosis of hypertension Hypotonic bladder Urinary tract infection Dyspareunia in female Surgical History History of total left knee replacement (TKR) History of total right knee replacement (TKR) History of Maloney urethropexy Hx of total vaginal hysterectomy H/O rectocele repair Family History Father Diabetes mellitus CHF (congestive heart failure) Mother FH: stomach cancer Crohn disease Son Mental health disorder Social History Household Members: Children Housing: Apartment Do you presently have visiting nurse or other home services: Yes Patient Tobacco Use Status: Former Tobacco user Quit Date: 07/22/22 e-Cigarette/Vaping Use: Never Used Second Hand Smoke Exposure: No service: No Current occupational status: disabled Cognitive needs: No Hearing needs: No Vision needs: No Questionnaire Thrive Questionnaire Date Thrive assessed: 08/13/22 JOSE-7 AMB Questionnaire JOSE-7 Date JOSE - 7 assessed: 12/08/22 Source: Developed by Drs. Ziggy Martino, Mesha Frye, Eben Dacosta and colleagues, with an educational susie from [employer]. Review of Systems Const Details: Const Denies chills, Denies fatigue, Denies fever(s), Denies headache(s) and Denies weakness ENT Denies dizziness and Denies headache(s) Card Denies chest pain, Denies lightheadedness, Denies dyspnea and Denies other (Palpitations) Resp Denies cough, Denies dyspnea, Denies wheezing and Denies other ( shortness of breath) GI Denies abdominal pain, Denies melena, Denies hematochezia, Denies change in bowel habits, Denies dyspepsia and Denies nausea Denies hematuria and Denies dysuria Musc Denies abnormal gait, Denies myalgias, Denies arthralgias, Denies numbness and Denies tingling Skin/Breast Reports wound to left chest, Denies rash, Denies unusual bruising Neuro Denies abnormal gait, Denies dizziness, Denies headache(s), Denies memory loss, Denies numbness, Denies Sensory deficit (Neuro), Denies tingling and Denies weakness Psych Denies anxiety, Denies depression, Denies memory loss Endo Denies cold intolerance, Denies fatigue, Denies heat intolerance, Denies polydipsia and Denies polyuria Aller/Immun Denies wheezing Physical exam (Primary Care) Vital Signs: Last Vital Signs Pulse 85 01/15/24 15:09 Pulse Ox 97 03/14/23 15:09 Oxygen Delivery Method Room Air 03/14/23 15:09 BMI result Body Mass Index 33.1 Tobacco/Smoking Status: Tobacco use Status Tobacco use date assessed 12/08/22 12/08/22 12:57 Patient Tobacco Use Status Former Tobacco user 12/08/22 12:57 e-Cigarette/Vaping Use Never Used 12/08/22 12:57 Thrive Assessment: Date of Thrive Assessment Date Thrive assessed 08/13/22 12/08/22 12:57 Const Other: General: no acute distress and well developed Nutritional Appearance: well nourished Orientation/consciousness: patient oriented x3 HENMT Head: Yes normocephalic and Yes atraumatic Eyes General: appearance normal, both eyes and all related structures Pupils: Equal, round and reactive pupils present EOM: EOMs intact bilaterally Resp Effort & Inspection: normal respiratory effort Auscultation: clear to auscultation bilaterally Cardio Rate: regular rate Rhythm: regular rhythm Heart sounds: S1 normal heart sound present, S2 normal heart sound present, no gallops, no murmurs and no rubs GI Palpation (GI): No Abdominal aortic bruit present, Soft to palpation, nontender, No hepatosplenomegaly present and No Rebound tenderness present Auscultation: normal bowel sounds General: Yes no CVA tenderness Back/Spine/Pelvis Back: no CVA tenderness Cervical Spine: cervical ROM normal and No Cervical spine tenderness Thoracic/Lumbar Spine: thoraco-lumbar ROM normal, No pain with thoraco-lumbar ROM, No thoracic spinal tenderness and No lumbar spinal tenderness Extrem General: Yes normal to inspection, No edema and No calf tenderness Skin General: warm and dry. Normal skin color. Normal skin turgor Lesions: no lesions Rashes: no rashes Trauma: no lacerations or abrasions Wounds: Left chest with significant edema, open wound to bottom with pink bed, small serous drainage, no overt infection Nails: normal Neuro General: patient oriented x3, gait normal and no focal neuro deficit Cranial nerves: Yes Equal, round and reactive pupils present Cognition (Neuro): normal cognition Gait exam (Neuro): Normal gait present Sensory Exam: No Sensory deficit (Neuro) Psych Appearance: grossly normal Affect: normal affect Attitude: cooperative Thought process: Normal thought process present Assessment and Plan Assessment & Plan (1) S/P left mastectomy: Code(s): Z90.12 - Acquired absence of left breast and nipple (2) Open wound of chest wall, uncomplicated: Code(s): S21.109A - Unspecified open wound of unspecified front wall of thorax without penetration into thoracic cavity, initial encounter Plan: Left chest with significant edema, open wound to bottom with pink bed, small serous drainage, no overt infection Wound cleansed with normal saline, nonadherence gauze applied Advised to continue with home VNA services Continue to take ibuprofen as prescribed Follow-up in 2-3 weeks for left chest wound, prediabetes, and mood disorder Return sooner with symptoms or concerns Verbalized understanding and agreed with treatment plan Coding Level of Care Code Est Pt Level 4 (22365) Diagnoses S/P left mastectomy Z90.12 Open wound of chest wall, uncomplicated S21.109A
[2023-03-14 15:09] VITALS: BP 152/88; PULSE 85; O2SAT 97; BMI 33.1
[2023-03-14 15:35] VITALS: BP 136/80
== END 2023-03-14 16:07 | disposition home or self-care (01) ==
PROVIDERS: PCP Nurse Practitioner Family; Visit Provider Nurse Practitioner Family
DX: Z90.12 Acquired absence of left breast and nipple (principal); S21.109A Unspecified open wound of unspecified front wall of thorax without penetration into thoracic cavity, initial encounter
CPT/HCPCS: 99214

== ENCOUNTER 2023-03-24 10:38 | Outpatient (AMB) | payer OTHER, SELFPAY ==
--- NOTE | 2023-03-24 10:40 | MHC.OFFVIS ---
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 Accompanied by: Self / Same As Patient Allergies acetaminophen [Vicodin] Allergy (Unknown, Verified 03/24/23 21:26) tongue swells, hives on bottom of feet adhesive tape [Adhesive Tape] Allergy (Unknown, Verified 03/24/23 21:26) Rash hydrocodone [Vicodin] Allergy (Unknown, Verified 03/24/23 21:26) tongue swells, hives on bottom of feet latex [Latex] Allergy (Unknown, Verified 03/24/23 21:26) Rash, red blisters penicillin V Allergy (Unknown, Verified 03/24/23 21:26) hives, rash Penicillins Allergy (Unknown, Verified 03/24/23 21:26) Rash, Nausea and Vomiting Sulfa (Sulfonamide Antibiotics) Allergy (Unknown, Verified 03/24/23 21:26) Hives, rash amphetamine [Adderall] Adverse Reaction (Unknown, Verified 03/24/23 21:26) diarrhea dextroamphetamine [Adderall] Adverse Reaction (Unknown, Verified 03/24/23 21:26) diarrhea morphine [MORPHINE] Adverse Reaction (Unknown, Verified 03/24/23 21:26) Nausea and Vomiting phenobarbital [Phenobarbital] Adverse Reaction (Unknown, Verified 03/24/23 21:26) extreme hyperactivity meperidine [From Demerol] Adverse Reaction (Verified 03/24/23 21:26) Vomiting Medication List - Last Reconciled 03/24/23 by ROGER Redding- amlodipine 5 mg PO DAILY 90 days ascorbic acid (vitamin C) 1,000 mg PO DAILY 90 days aspirin 81 mg PO DAILY atorvastatin 80 mg PO BEDTIME 30 days estradiol 0.01%(0.1mg/gram) vaginally 3 times a week; pea sized amount to urethra 3 times a week 30 days lisinopril 20 mg PO DAILY methenamine hippurate 1 g PO daily 90 days metoprolol succinate ER 100 mg PO DAILY 90 days miscellaneous medical supply as directed; contours incontinent pad maximum 28 per pack 1 month miscellaneous medical supply 2 pair of support stockings nitrofurantoin macrocrystal 100 mg PO BID 14 days quetiapine ER 100 mg (2 x 50 mg) PO BEDTIME 30 days tolterodine ER 4 mg PO DAILY 90 days zolpidem 5 mg PO BEDTIME 30 days HPI HPI Comments History of Present Illness Details Bev is a pleasant 67 year-old female patient of Dr. Silvestre. She has a past medical history of bipolar, CKD stage 2, dyslipidemia, hypertension, history of CVA with expressive aphasia, osteoarthritis, recurrent urinary tract infections, and overactive bladder. She presents to the office today for follow-up regarding her frequent urinary tract infections and overactive bladder. When asked she reports to be doing and feeling well. She discusses at length since her last office visit here approximately 3 months ago she has been hospitalized for left breast cellulitis/abscess that resulted in necrotizing fasciitis with left-sided masectomy. She reports 2 days prior to discharge she started with nausea and vomiting at which time she was noted to have cholecystitis resulting in cholecystectomy. She reports having attended rehab for approximately 2 weeks status post hospitalization in as since been home and recovering well. She reports having VNA services daily for wound care. Of note, patient has also underwent bilateral oophorectomy with Dr. Elizondo 12/20. She denies having had any UTI like symptoms or urinary tract infection since her last office visit here approximately 3 months ago. In office urinalysis results reviewed with the patient today. 3+ leukocytes and positive nitrates. PVR 10 mL. When asked she denies any UTI like symptoms at this time. She reports compliance with Estrace cream, methenamine, and vitamin-C for suppression therapy. She reports be happy with current voiding parameters on 4 mg of tolterodine daily. She reports to be drinking plenty of fluid daily. She denies any issues with constipation at this time. Patient otherwise denies any urinary issues or concerns. She denies urinary hematuria, dysuria, changes to urinary stream, flank pain, fever, and or chills. She reports that since her stroke 09/2021 she continues with expressive aphasia, short-term memory loss, and trouble remembering numbers she will be resuming speech therapy this week. She discusses being thankful for son who has been able to support her through her medical issues she continues to be experiencing. [facility] Medical History Hypersomnia Snoring Expressive aphasia Dysgraphia Stroke Multiple allergies Cholelithiasis Overactive bladder Recurrent urinary tract infection History of CVA with residual deficit Expressive aphasia History of CVA (cerebrovascular accident) Refused influenza vaccine COVID-19 vaccination declined Impaired fasting glucose Dyslipidemia Osteoporosis Psoriasis Gestational diabetes Hx of uterine prolapse Osteoarthritis of knees, bilateral Bipolar 1 disorder CKD (chronic kidney disease) stage 2, GFR 60-89 ml/min Essential hypertension Rectocele Urge incontinence Elevated blood pressure reading in office with diagnosis of hypertension Hypotonic bladder Urinary tract infection Dyspareunia in female Surgical History History of total left knee replacement (TKR) History of total right knee replacement (TKR) History of Maloney urethropexy Hx of total vaginal hysterectomy H/O rectocele repair Family History Father Diabetes mellitus CHF (congestive heart failure) Mother FH: stomach cancer Crohn disease Son Mental health disorder Social History Household Members: Children Housing: Apartment Do you presently have visiting nurse or other home services: Yes Patient Tobacco Use Status: Former Tobacco user Quit Date: 07/22/22 e-Cigarette/Vaping Use: Never Used Second Hand Smoke Exposure: No service: No Current occupational status: disabled Cognitive needs: No Hearing needs: No Vision needs: No Review of Systems Const Reports as per HPI Eyes Reports no additional complaints ENT Reports no additional complaints Card Reports no additional complaints Resp Reports no additional complaints GI Details: Reports as per HPI Reports as per HPI Musc Reports no additional complaints Skin/Breast Reports as per HPI Neuro Reports as per HPI Endo Reports no additional complaints Physical Exam Const General: cooperative, healthy appearing, comfortable, no acute distress, well developed, alert and awake Orientation/consciousness: patient oriented x3 HEENT Head: Yes normal to inspection, Yes normocephalic and Yes atraumatic Ears: hearing grossly normal bilaterally Eyes General: appearance normal, both eyes and all related structures Neck Neck: Yes normal visual inspection and Yes trachea midline Chest Other: left sided chest dressing; clean dry and intact Resp Effort & Inspection: normal respiratory effort and able to speak in complete sentences Cardio Rate: regular rate GI Inspection: Yes normal to inspection General: Yes no CVA tenderness Back/Spine/Pelvis Back: no CVA tenderness Skin General skin exam: no rashes or lesions noted Neuro General: patient oriented x3 Extrem General: Yes normal to inspection Psych Appearance: grossly normal and well kempt Mental Status: mental status grossly normal Speech and movement: Normal speech and movement present and Clear speech present Affect: normal affect Attitude: cooperative Thought process: Normal thought process present Thought content: Normal thought content present Insight: Fair insight present (Psych) Judgement: Fair judgement present (Psych) Office Procedures Post Void Residual Post Residual Void Post Void Residual (PVR): 10 [id number] Void Residual by ultrasound Results AMB Urinalysis, Automated UA Leukoctes 70 Emiliano/uL Last Edit by [facility] on 03/24/23 11:09 UA Nitrite Positive Last Edit by [facility] on 03/24/23 11:09 UA Urobilinogen 0.2 mg/dL Last Edit by [facility] on 03/24/23 11:09 UA Protein 0 mg/dL Last Edit by [facility] on 03/24/23 11:09 UA pH 6.0 Last Edit by [facility] on 03/24/23 11:09 UA Blood 25 Maximiliano/uL Last Edit by [facility] on 03/24/23 11:09 UA Specific Dixon 1.015 Last Edit by [facility] on 03/24/23 11:09 UA Ketone Negative Last Edit by [facility] on 03/24/23 11:09 UA Bilirubin 0 mg/dL Last Edit by [facility] on 03/24/23 11:09 UA Glucose 0 mg/dL Last Edit by [facility] on 03/24/23 11:09 Results Reviewed Results Reviewed: Laboratory Last Values Urine pH (Auto) 6.0 03/24/23 10:49 Specific Dixon (Auto) 1.015 03/24/23 10:49 Urine Protein (Auto) 0 mg/dL 03/24/23 10:49 Glucose (UA)(Auto) 0 mg/dL 03/24/23 10:49 Urine Ketones (Auto) Negative 03/24/23 10:49 Urine Blood (Auto) 25 Maximiliano/uL 03/24/23 10:49 Urine Nitrite (Auto) Positive 03/24/23 10:49 Urine Bilirubin (Auto) 0 mg/dL 03/24/23 10:49 Urine Urobilinogen (Auto) 0.2 mg/dL 03/24/23 10:49 Leukocyte Esterase (Auto) 70 Emiliano/uL 03/24/23 10:49 Assessment & Plan Assessment & Plan (1) Complicated urinary tract infection: Code(s): N39.0 - Urinary tract infection, site not specified (2) Recurrent urinary tract infection: Code(s): N39.0 - Urinary tract infection, site not specified (3) Infection due to ESBL-producing Escherichia coli: Comment: She has ESBL E coli chronic colonizing bladder. She has intermittent pelvis discomfort may represent early infection in August and fosfomycin good for this. She feels well and has no other concerns. It is impossible to eradicate organism in bladder with IV antibiotics,doesnt need. Code(s): A49.8 - Other bacterial infections of unspecified site; Z16.12 - Extended spectrum beta lactamase (ESBL) resistance Plan In office urinalysis results reviewed with the patient today; as noted above; will send for microgen testing for further assessment evaluation. PVR-10ml's Patient currently denies any bothersome urinary issues or concerns. She denies any UTI like symptoms at this time. Patient with history of colonized ESBL producing E coli will obtain microgen for further assessment evaluation; patient aware and agreeable. Discussed UTI prevention with D mannose supplement, vitamin-C, increasing fluid intake, behavioral therapy with timed voiding, perineal hygiene and postcoital voiding, and management of constipation with stool softeners and increased fiber intake. Will await possible treatment pending microgen results. Follow up in one month; or sooner with any issues, concerns, or questions. Orders: Orders AMB Urinalysis Automated Today Z13.9 - Encounter for screening, unspecified AMB Post Void Residual by ultrasound Today N32.81 - Overactive bladder Patient Instructions: The patient had an opportunity to ask questions regarding the treatment plan. All questions were answered. Physical exam, labs, and imaging were discussed and reviewed in detail. As well as risks, benefits, and discussion of treatment choices. No major barriers to understanding were identified. The patient expressed understanding and agreement with the above treatment plan. The patient was made aware they should contact our office by phone for worsening of their current condition, the appearance of new symptoms, or with any questions or concerns. Compliance is encouraged with any medications and follow up testing that is ordered. It is a privilege to be allowed the opportunity to participate in? your urological care.? Again, if you have any questions or concerns If you have any questions or concerns please do not hesitate to contact me. The office is [phone]. This note is constructed using voice recognition software. While every effort has been made to ensure accuracy furnace stock inspector errors may have been included. Yours sincerely, GENEVA Redding Coding Level of Care Code Est Pt Level 4 (36166) Diagnoses Complicated urinary tract infection N39.0 Recurrent urinary tract infection N39.0 Infection due to ESBL-producing Escherichia coli A49.8; Z16.12 CPT Codes Post Residual Void - PVR CPT Code: 67467-Ortt Void Residual by ultrasound ([id number]) Time Spent (min) 40
== END 2023-03-24 11:29 | disposition home or self-care (01) ==
PROVIDERS: PCP Nurse Practitioner Family; Visit Provider Nurse Practitioner Family
DX: N39.0 Urinary tract infection, site not specified (principal); A49.8 Other bacterial infections of unspecified site; Z16.12 Extended spectrum beta lactamase (ESBL) resistance
CPT/HCPCS: 99214

== ENCOUNTER → 2023-03-24 10:38 | Outpatient (BNVA) | payer OTHER, SELFPAY | PROVIDERS: PCP Nurse Practitioner Family; Visit Provider Nurse Practitioner Family | DX: N39.0 Urinary tract infection, site not specified (principal); A49.8 Other bacterial infections of unspecified site; Z16.12 Extended spectrum beta lactamase (ESBL) resistance | CPT/HCPCS: 51798; 81003; 99212 ==

== ENCOUNTER 2023-04-04 11:00 | Outpatient (AMB) | payer OTHER, SELFPAY ==
--- NOTE | 2023-04-04 11:04 | MHC.PC.OV ---
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: No Accompanied by: Self / Same As Patient Allergies acetaminophen [Vicodin] Allergy (Unknown, Verified 04/04/23 11:19) tongue swells, hives on bottom of feet adhesive tape [Adhesive Tape] Allergy (Unknown, Verified 04/04/23 11:19) Rash hydrocodone [Vicodin] Allergy (Unknown, Verified 04/04/23 11:19) tongue swells, hives on bottom of feet latex [Latex] Allergy (Unknown, Verified 04/04/23 11:19) Rash, red blisters penicillin V Allergy (Unknown, Verified 04/04/23 11:19) hives, rash Penicillins Allergy (Unknown, Verified 04/04/23 11:19) Rash, Nausea and Vomiting Sulfa (Sulfonamide Antibiotics) Allergy (Unknown, Verified 04/04/23 11:19) Hives, rash amphetamine [Adderall] Adverse Reaction (Unknown, Verified 04/04/23 11:19) diarrhea dextroamphetamine [Adderall] Adverse Reaction (Unknown, Verified 04/04/23 11:19) diarrhea morphine [MORPHINE] Adverse Reaction (Unknown, Verified 04/04/23 11:19) Nausea and Vomiting phenobarbital [Phenobarbital] Adverse Reaction (Unknown, Verified 04/04/23 11:19) extreme hyperactivity meperidine [From Demerol] Adverse Reaction (Verified 04/04/23 11:19) Vomiting Medication List - Last Reconciled 04/04/23 by Terese Silvestre CNP amlodipine 5 mg PO DAILY 90 days ascorbic acid (vitamin C) 1,000 mg PO DAILY 90 days aspirin 81 mg PO DAILY atorvastatin 80 mg PO BEDTIME 30 days estradiol 0.01%(0.1mg/gram) vaginally 3 times a week; pea sized amount to urethra 3 times a week 30 days lisinopril 20 mg PO DAILY methenamine hippurate 1 g PO daily 90 days metoprolol succinate ER 100 mg PO DAILY 90 days miscellaneous medical supply as directed; contours incontinent pad maximum 28 per pack 1 month miscellaneous medical supply 2 pair of support stockings quetiapine ER 100 mg (2 x 50 mg) PO BEDTIME 30 days sennosides (senna) 8.6 mg PO BEDTIME 90 days tolterodine ER 4 mg PO DAILY 90 days zolpidem 5 mg PO BEDTIME 30 days Tobacco use date assessed: 03/14/23 Fall risk assessment: No Falls in past year Last assessed Fall Risk: 04/04/23 Dental Screening Dental Screen Date: 04/04/23 Did you have a dental visit in the last 12 months?: No Did you have a dental problem in the last 6 months where you did not have access to dental care?: No Was dental information given to patient?: Yes HPI HPI Comments History of Present Illness Details 67-year-old female presents for left chest wound, prediabetes, and mood disorder follow-up She notes that the wound to her left chest wall is almost completely healed. She continues to received skill nursing visit for daily wound care. She also receives home PT twice weekly She notes controlled mood on current treatment. She is followed by [facility]. She sees her therapist weekly and psychiatrist every 3 months She offers no complaints and denies acute symptoms at this time She has h/o CKD. She notes she has not been seen by her generation engineer, Dr. Lee, in over a year due to conflicting schedules. She states that she will call to schedule a follow up appointment. She states that her last eye exam was 2 years ago and has appointment with her coding and reimbursement specialist in September [facility] Medical History (Updated 04/04/23 @ 11:17 by Lissy Booker MA) FH: cholecystectomy Hypersomnia Snoring Expressive aphasia Dysgraphia Stroke Multiple allergies Cholelithiasis Overactive bladder Recurrent urinary tract infection History of CVA with residual deficit Expressive aphasia History of CVA (cerebrovascular accident) Refused influenza vaccine COVID-19 vaccination declined Impaired fasting glucose Dyslipidemia Osteoporosis Psoriasis Gestational diabetes Hx of uterine prolapse Osteoarthritis of knees, bilateral Bipolar 1 disorder CKD (chronic kidney disease) stage 2, GFR 60-89 ml/min Essential hypertension Rectocele Urge incontinence Elevated blood pressure reading in office with diagnosis of hypertension Hypotonic bladder Urinary tract infection Dyspareunia in female Surgical History History of total left knee replacement (TKR) History of total right knee replacement (TKR) History of Maloney urethropexy Hx of total vaginal hysterectomy H/O rectocele repair Family History Father Diabetes mellitus CHF (congestive heart failure) Mother FH: stomach cancer Crohn disease Son Mental health disorder Social History Household Members: Children Housing: Apartment Do you presently have visiting nurse or other home services: Yes Patient Tobacco Use Status: Former Tobacco user Quit Date: 07/22/22 e-Cigarette/Vaping Use: Never Used Second Hand Smoke Exposure: No service: No Current occupational status: disabled Cognitive needs: No Hearing needs: No Vision needs: No Questionnaire PHQ-9 Over the last 2 weeks, how often have you been bothered by any of the following problems? 1. Little interest or pleasure in doing things: not at all 2. Feeling down, depressed, or hopeless: not at all 3. Trouble falling or staying asleep, or sleeping too much: several days 4. Feeling tired or having little energy: several days 5. Poor appetite or overeating: not at all 6. Feeling bad about yourself - or that you are a failure or have let yourself or your family down: not at all 7. Trouble concentrating on things, such as reading the newspaper or watching television: several days 8. Moving or speaking so slowly that other people could have noticed. Or the opposite - being so fidgety or restless that you have been moving around a lot more than usual: not at all 9. Thoughts that you would be better off or of hurting yourself in some way: not at all Total score: 3 Depression Screening Interpretation: Negative Depression Screening Done: Yes 75138 - PHQ-9 Billing: Yes Source: Developed by Drs. Ziggy Martino, Mesha Frye, Eben Dacosta and colleagues, with an educational susie from [employer]. Thrive Questionnaire Date Thrive assessed: 08/13/22 JOSE-7 AMB Questionnaire JOSE-7 Date JOSE - 7 assessed: 04/04/23 Feeling nervous, anxious, or on edge: 1 = Several days Not being able to stop or control worryin = Several days Worrying too much about different things: 0 = Not at all Trouble relaxin = Not at all Being so restless that it is hard to sit still: 0 = Not at all Becoming easily annoyed or irritable: 0 = Not at all Feeling afraid as if something awful might happen: 0 = Not at all Total JOSE-7 score (0-4 normal; 5-9 mild; 10-14 moderate; 15-21 severe): 2 Source: Developed by Drs. Ziggy Martino, Mesha Frye, Eben Dacosta and colleagues, with an educational susie from [facility]. JOSE-7 Assessment Billing JOSE-7 Assessment Tool: JOSE-7 Assessment 58357 Review of Systems Const Details: Const Denies chills, Denies fatigue, Denies fever(s), Denies headache(s) and Denies weakness ENT Denies dizziness and Denies headache(s) Card Denies chest pain, Denies lightheadedness, Denies dyspnea and Denies other (Palpitations) Resp Denies cough, Denies dyspnea, Denies wheezing and Denies other ( shortness of breath) GI Denies abdominal pain, Denies melena, Denies hematochezia, Denies change in bowel habits, Denies dyspepsia and Denies nausea Denies hematuria and Denies dysuria Musc Denies abnormal gait, Denies myalgias, Denies arthralgias, Denies numbness and Denies tingling Skin/Breast Denies rash, Denies unusual bruising and Denies wounds Neuro Denies abnormal gait, Denies dizziness, Denies headache(s), Denies memory loss, Denies numbness, Denies Sensory deficit (Neuro), Denies tingling and Denies weakness Psych Denies anxiety, Denies depression, Denies memory loss Endo Denies cold intolerance, Denies fatigue, Denies heat intolerance, Denies polydipsia and Denies polyuria Aller/Immun Denies wheezing Physical exam (Primary Care) Vital Signs: Last Vital Signs Temp 98 F 04/04/23 11:05 Pulse 91 04/04/23 11:05 Resp 13 04/04/23 11:05 BP 134/70 04/04/23 11:05 Pulse Ox 98 04/04/23 11:05 Oxygen Delivery Method Room Air 04/04/23 11:05 BMI result Body Mass Index 33.2 Tobacco/Smoking Status: Tobacco use Status Tobacco use date assessed 03/14/23 04/04/23 11:18 Patient Tobacco Use Status Former Tobacco user 04/04/23 11:18 e-Cigarette/Vaping Use Never Used 04/04/23 11:18 Depression Screening Interpretation: Negative Thrive Assessment: Date of Thrive Assessment Date Thrive assessed 08/13/22 04/04/23 11:18 Const Other: General: no acute distress and well developed Nutritional Appearance: well nourished Orientation/consciousness: patient oriented x3 HENMT Head: Yes normocephalic and Yes atraumatic Eyes General: appearance normal, both eyes and all related structures Pupils: Equal, round and reactive pupils present EOM: EOMs intact bilaterally Resp Effort & Inspection: normal respiratory effort Auscultation: clear to auscultation bilaterally Cardio Rate: regular rate Rhythm: regular rhythm Heart sounds: S1 normal heart sound present, S2 normal heart sound present, no gallops, no murmurs and no rubs GI Palpation (GI): No Abdominal aortic bruit present, Soft to palpation, nontender, No hepatosplenomegaly present and No Rebound tenderness present Auscultation: normal bowel sounds General: Yes no CVA tenderness Back/Spine/Pelvis Back: no CVA tenderness Cervical Spine: cervical ROM normal and No Cervical spine tenderness Thoracic/Lumbar Spine: thoraco-lumbar ROM normal, No pain with thoraco-lumbar ROM, No thoracic spinal tenderness and No lumbar spinal tenderness Extrem General: Yes normal to inspection, No edema and No calf tenderness Skin General: warm and dry. Normal skin color. Normal skin turgor Lesions: no lesions Rashes: no rashes Trauma: no lacerations or abrasions Wounds: Left chest wall. Dressing is clean, dry, and intact Nails: normal Neuro General: patient oriented x3, gait normal and no focal neuro deficit Cranial nerves: Yes Equal, round and reactive pupils present Cognition (Neuro): normal cognition Gait exam (Neuro): Normal gait present Sensory Exam: No Sensory deficit (Neuro) Psych Appearance: grossly normal Affect: normal affect Attitude: cooperative Thought process: Normal thought process present Results AMB Hemoglobin A1c AMB Hemoglobin A1c 5.7 % Last Edit by Lissy Booker MA on 04/04/23 11:47 Assessment and Plan Assessment & Plan (1) Bipolar 1 disorder: Comment: sees [facility] Code(s): F31.9 - Bipolar disorder, unspecified Plan: Controlled mood on current treatment Continue current treatment regimen Routine exercise encouraged Follow-up with psychiatrist and therapist as planned Return in 1 month for an extended physical exam or sooner worsening or new symptoms Encouraged to schedule a follow-up appointment with Nephrology Verbalized understanding and agreed with treatment plan (2) Pre-diabetes: Code(s): R73.03 - Prediabetes Plan: A1c today is 5.7%. Previous A1c was 6.0 Healthy diet including low carbs in routine exercise encouraged Will continue to monitor Verbalized understanding and agreed with treatment plan (3) Open wound of chest wall, uncomplicated: Code(s): S21.109A - Unspecified open wound of unspecified front wall of thorax without penetration into thoracic cavity, initial encounter Plan: Dressing to left chest wall is clean, dry, and intact Continue current treatment regimen Follow up with breast and trauma surgery as planned Return with symptoms or concerns Verbalized understanding and agreed with the plan (4) Laboratory tests ordered as part of a complete physical exam (CPE): Code(s): Z00.00 - Encounter for general adult medical examination without abnormal findings Plan: Fasting labs ordered in preparation for a complete physical exam. Advised to fast for at least 10 hours before getting labs drawn. May drink water Verbalized understanding and agreed with treatment plan. Orders: Orders AMB Hemoglobin A1c Today R73.03 - Prediabetes Complete Blood Count Auto Diff Today Z00.00 - Encounter for general adult medical examination without abnormal findings Comprehensive Era. Panel Fast Today Z00.00 - Encounter for general adult medical examination without abnormal findings TSH reflex Free T4 Today Z00.00 - Encounter for general adult medical examination without abnormal findings Lipid Panel Today Z00.00 - Encounter for general adult medical examination without abnormal findings UA CC w/rflx Micro + Cult Today Z00.00 - Encounter for general adult medical examination without abnormal findings Coding Level of Care Code Est Pt Level 4 (42586) Diagnoses Bipolar 1 disorder F31.9 Pre-diabetes R73.03 Open wound of chest wall, uncomplicated S21.109A Laboratory tests ordered as part of a complete physical exam (CPE) Z00.00 Additional Codes JOSE-7 Assessment Billing - JOSE-7 Assessment Tool: JOSE-7 Assessment [id number] ([id number])
[2023-04-04 11:05] VITALS: BP 134/70; PULSE 91; RESP 13; TEMP 36.6; O2SAT 98; BMI 33.2
== END 2023-04-04 11:56 | disposition home or self-care (01) ==
PROVIDERS: PCP Nurse Practitioner Family; Visit Provider Nurse Practitioner Family
DX: R73.03 Prediabetes (principal); F31.9 Bipolar disorder, unspecified; S21.109A Unspecified open wound of unspecified front wall of thorax without penetration into thoracic cavity, initial encounter
CPT/HCPCS: 83036; 99214

== ENCOUNTER 2023-04-26 11:11 | Outpatient (REF) | payer OTHER, SELFPAY | END 2023-04-26 11:12 | disposition home or self-care (01) | LOC: HO.LNP 11:11 | PROVIDERS: PCP Nurse Practitioner Family; Visit Provider Nurse Practitioner Family | DX: N39.0 Urinary tract infection, site not specified (principal); I12.9 Hypertensive chronic kidney disease with stage 1 through stage 4 chronic kidney disease, or unspecified chronic kidney disease; N18.2 Chronic kidney disease, stage 2 (mild); N32.81 Overactive bladder; R33.9 Retention of urine, unspecified; B96.29 Other Escherichia coli [E. coli] as the cause of diseases classified elsewhere; Z16.12 Extended spectrum beta lactamase (ESBL) resistance; Z86.73 Personal history of transient ischemic attack (TIA), and cerebral infarction without residual deficits; Z79.899 Other long term (current) drug therapy | CPT/HCPCS: 51798; 81003; 87086; 99212 ==

== ENCOUNTER 2023-04-26 11:11 | Outpatient (AMB) | payer OTHER, SELFPAY ==
--- NOTE | 2023-04-26 11:44 | MHC.OFFVIS ---
Intake Intake Visit Reasons: 1m/PVR Intake Note: Patient presents today for follow up Recurrent UTI Urology Medications: Methenamine, Vitamin C, Estradiol Cream, Tolterodine Blood Thinner: Aspirin PVR: 111ml Meat Soaker Required: No Accompanied by: Self / Same As Patient Allergies acetaminophen [Vicodin] Allergy (Unknown, Verified 04/26/23 12:23) tongue swells, hives on bottom of feet adhesive tape [Adhesive Tape] Allergy (Unknown, Verified 04/26/23 12:23) Rash hydrocodone [Vicodin] Allergy (Unknown, Verified 04/26/23 12:23) tongue swells, hives on bottom of feet latex [Latex] Allergy (Unknown, Verified 04/26/23 12:23) Rash, red blisters penicillin V Allergy (Unknown, Verified 04/26/23 12:23) hives, rash Penicillins Allergy (Unknown, Verified 04/26/23 12:23) Rash, Nausea and Vomiting Sulfa (Sulfonamide Antibiotics) Allergy (Unknown, Verified 04/26/23 12:23) Hives, rash amphetamine [Adderall] Adverse Reaction (Unknown, Verified 04/26/23 12:23) diarrhea dextroamphetamine [Adderall] Adverse Reaction (Unknown, Verified 04/26/23 12:23) diarrhea morphine [MORPHINE] Adverse Reaction (Unknown, Verified 04/26/23 12:23) Nausea and Vomiting phenobarbital [Phenobarbital] Adverse Reaction (Unknown, Verified 04/26/23 12:23) extreme hyperactivity meperidine [From Demerol] Adverse Reaction (Verified 04/26/23 12:23) Vomiting Medication List - Last Reconciled 04/26/23 by GENEVA Redding ascorbic acid (vitamin C) 1,000 mg PO DAILY 90 days aspirin 81 mg PO DAILY atorvastatin 80 mg PO BEDTIME 30 days estradiol 0.01%(0.1mg/gram) vaginally 3 times a week; pea sized amount to urethra 3 times a week 30 days lisinopril 20 mg PO DAILY methenamine hippurate 1 g PO daily 90 days metoprolol succinate ER 100 mg PO DAILY 90 days miscellaneous medical supply 2 pair of support stockings miscellaneous medical supply as directed; contours incontinent pad maximum 28 per pack 1 month quetiapine ER 100 mg (2 x 50 mg) PO BEDTIME 30 days sennosides (senna) 8.6 mg PO BEDTIME 90 days zolpidem 5 mg PO BEDTIME 30 days HPI HPI Comments History of Present Illness Details Bev is a pleasant 67 year-old female patient of Dr. Silvestre. She has a past medical history of bipolar, CKD stage 2, dyslipidemia, hypertension, history of CVA with expressive aphasia, osteoarthritis, recurrent urinary tract infections, and overactive bladder. She presents to the office today for follow-up regarding her frequent urinary tract infections and overactive bladder. Of note, patient was seen approximately 1 month ago for follow-up at which time urine was sent for microgen testing. In discussion with the patient today she reports she has since completed antibiotic therapy as prescribed. Flagyl 375 mg b.i.d. x5 days and fluconazole 2 doses every 3 days has since been completed. In office urinalysis results reviewed with the patient today. Negative leukocytes negative nitrates negative microscopic hematuria. She denies any UTI like symptoms however patient typically presents with no UTI like symptoms despite potential urinary tract infection. PVR 111ml's. Discussed at length incomplete bladder emptying. She does report baseline urinary frequency however also relates this to her increase fluid intake. She does not find this bothersome at this time. 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 Discussed restarting Estrace cream as prescribed. She otherwise offers no other issues or concerns at this time. Of note, patient has also underwent bilateral oophorectomy with Dr. Elizondo 12/20. She denies hematuria, dysuria, changes to urinary stream, flank pain, fever, and or chills. [facility] Medical History FH: cholecystectomy Hypersomnia Snoring Expressive aphasia Dysgraphia Stroke Multiple allergies Cholelithiasis Overactive bladder Recurrent urinary tract infection History of CVA with residual deficit Expressive aphasia History of CVA (cerebrovascular accident) Refused influenza vaccine COVID-19 vaccination declined Impaired fasting glucose Dyslipidemia Osteoporosis Psoriasis Gestational diabetes Hx of uterine prolapse Osteoarthritis of knees, bilateral Bipolar 1 disorder CKD (chronic kidney disease) stage 2, GFR 60-89 ml/min Essential hypertension Rectocele Urge incontinence Elevated blood pressure reading in office with diagnosis of hypertension Hypotonic bladder Urinary tract infection Dyspareunia in female Surgical History History of total left knee replacement (TKR) History of total right knee replacement (TKR) History of Maloney urethropexy Hx of total vaginal hysterectomy H/O rectocele repair Family History Father Diabetes mellitus CHF (congestive heart failure) Mother FH: stomach cancer Crohn disease Son Mental health disorder Social History Household Members: Children Housing: Apartment Do you presently have visiting nurse or other home services: Yes Patient Tobacco Use Status: Former Tobacco user Quit Date: 07/22/22 e-Cigarette/Vaping Use: Never Used Second Hand Smoke Exposure: No service: No Current occupational status: disabled Cognitive needs: No Hearing needs: No Vision needs: No Review of Systems Const Reports as per HPI Eyes Reports no additional complaints ENT Reports no additional complaints Card Reports no additional complaints Resp Reports no additional complaints GI Details: Reports as per HPI Reports as per HPI Musc Reports no additional complaints Skin/Breast Reports as per HPI Neuro Reports as per HPI Endo Reports no additional complaints Physical Exam Const General: cooperative, healthy appearing, comfortable, no acute distress, well developed, alert and awake Orientation/consciousness: patient oriented x3 Limitations: no limitations HEENT Head: Yes normal to inspection, Yes normocephalic and Yes atraumatic Ears: hearing grossly normal bilaterally Eyes General: appearance normal, both eyes and all related structures Neck Neck: Yes normal visual inspection and Yes trachea midline Chest Other: left sided chest dressing; clean dry and intact Resp Effort & Inspection: normal respiratory effort and able to speak in complete sentences Cardio Rate: regular rate GI Inspection: Yes normal to inspection General: Yes no CVA tenderness Back/Spine/Pelvis Back: no CVA tenderness Skin General skin exam: no rashes or lesions noted Neuro General: patient oriented x3 Extrem General: Yes normal to inspection Psych Appearance: grossly normal and well kempt Mental Status: mental status grossly normal Speech and movement: Normal speech and movement present and Clear speech present Affect: normal affect Attitude: cooperative Thought process: Normal thought process present Thought content: Normal thought content present Insight: Fair insight present (Psych) Judgement: Fair judgement present (Psych) Office Procedures Post Void Residual Post Residual Void Post Void Residual (PVR): 111 [id number] Void Residual by ultrasound Results AMB Urinalysis, Automated UA Leukoctes 0 Emiliano/uL Last Edit by Leah Henry [facility] on 04/26/23 12:05 UA Nitrite Negative Last Edit by Leah Henry [facility] on 04/26/23 12:05 UA Urobilinogen 0.2 mg/dL Last Edit by Leah Henry [facility] on 04/26/23 12:05 UA Protein 0 mg/dL Last Edit by Leah Henry [facility] on 04/26/23 12:05 UA pH 6.0 Last Edit by Leah Henry, [facility] on 04/26/23 12:05 UA Blood 0 Maximiliano/uL Last Edit by Leah Henry [facility] on 04/26/23 12:05 UA Specific Evangeline 1.010 Last Edit by Leah Henry [facility] on 04/26/23 12:05 UA Ketone Negative Last Edit by Leah Henry [facility] on 04/26/23 12:05 UA Bilirubin 0 mg/dL Last Edit by Leah Henry [facility] on 04/26/23 12:05 UA Glucose 0 mg/dL Last Edit by Leah Henry [facility] on 04/26/23 12:05 Results Reviewed Results Reviewed: Laboratory Last Values Urine pH (Auto) 6.0 04/26/23 12:04 Specific Evangeline (Auto) 1.010 04/26/23 12:04 Urine Protein (Auto) 0 mg/dL 04/26/23 12:04 Glucose (UA)(Auto) 0 mg/dL 04/26/23 12:04 Urine Ketones (Auto) Negative 04/26/23 12:04 Urine Blood (Auto) 0 Maximiliano/uL 04/26/23 12:04 Urine Nitrite (Auto) Negative 04/26/23 12:04 Urine Bilirubin (Auto) 0 mg/dL 04/26/23 12:04 Urine Urobilinogen (Auto) 0.2 mg/dL 04/26/23 12:04 Leukocyte Esterase (Auto) 0 Emiliano/uL 04/26/23 12:04 Assessment & Plan Assessment & Plan (1) UTI due to extended-spectrum beta lactamase (ESBL) producing Escherichia coli: Code(s): N39.0 - Urinary tract infection, site not specified; B96.29 - Other Escherichia coli [E. coli] as the cause of diseases classified elsewhere; Z16.12 - Extended spectrum beta lactamase (ESBL) resistance (2) Recurrent urinary tract infection: Code(s): N39.0 - Urinary tract infection, site not specified (3) Overactive bladder: Code(s): N32.81 - Overactive bladder (4) Incomplete bladder emptying: Code(s): R33.9 - Retention of urine, unspecified Plan In office urinalysis results reviewed with the patient today; as noted above. PVR 111ml's. Discussed at length causes and affects of incomplete bladder emptying; will await restart of tolterodine if urinary frequency becomes more bothersome. Discussed double voiding to assist with incomplete bladder emptying. Restart Estrace cream as discussed and prescribed. Patient currently denies any bothersome urinary issues or concerns. Discussed potential near future restart of methenamine, vitamin-C, and or tolterodine. She reports be happy with current voiding parameters. Follow-up in 3 months with PVR; or sooner with any issues, concerns, and or questions. Orders: Orders AMB Urinalysis Automated Today R33.9 - Retention of urine, unspecified AMB Post Void Residual by ultrasound Today R33.9 - Retention of urine, unspecified Urine Culture Today B96.29 - Other Escherichia coli [E. coli] as the cause of diseases classified elsewhere, N39.0 - Urinary tract infection, site not specified, Z16.12 - Extended spectrum beta lactamase (ESBL) resistance Patient Instructions: The patient had an opportunity to ask questions regarding the treatment plan. All questions were answered. Physical exam, labs, and imaging were discussed and reviewed in detail. As well as risks, benefits, and discussion of treatment choices. No major barriers to understanding were identified. The patient expressed understanding and agreement with the above treatment plan. The patient was made aware they should contact our office by phone for worsening of their current condition, the appearance of new symptoms, or with any questions or concerns. Compliance is encouraged with any medications and follow up testing that is ordered. It is a privilege to be allowed the opportunity to participate in? your urological care.? Again, if you have any questions or concerns If you have any questions or concerns please do not hesitate to contact me. The office is [phone]. This note is constructed using voice recognition software. While every effort has been made to ensure accuracy box hinge and lock attacher errors may have been included. Yours sincerely, GENEVA Redding Coding Level of Care Code Est Pt Level 3 (10158) Diagnoses UTI due to extended-spectrum beta lactamase (ESBL) producing Escherichia coli N39.0; B96.29; Z16.12 Recurrent urinary tract infection N39.0 Overactive bladder N32.81 Incomplete bladder emptying R33.9 CPT Codes Post Residual Void - PVR CPT Code: 00420-[id number] Void Residual by ultrasound ([id number])
== END 2023-04-26 12:22 | disposition home or self-care (01) ==
PROVIDERS: PCP Nurse Practitioner Family; Visit Provider Nurse Practitioner Family
DX: N39.0 Urinary tract infection, site not specified (principal); B96.29 Other Escherichia coli [E. coli] as the cause of diseases classified elsewhere; Z16.12 Extended spectrum beta lactamase (ESBL) resistance; N32.81 Overactive bladder; R33.9 Retention of urine, unspecified
CPT/HCPCS: 99213

== ENCOUNTER 2023-05-13 09:41 | Outpatient (REF) | payer OTHER, SELFPAY ==
[2023-05-13 11:27] LABS: MANUAL DIFF FLAG NO
[2023-05-13 11:30] LABS: Appearance Urine Clear; Color Urine Yellow; Glucose Urine UA Negative (Negative); Leukocyte Esterase Urine Negative (Negative); Nitrite Urine Negative (Negative); PH 6.5 (5.0-9.0); Urine Blood Negative (Negative); Urine Ketones Negative (Negative); Urine Protein Negative (Neg-Trace)
[2023-05-13 11:33] LABS: Basophils Absolute Auto 0.1 X10*3/uL (0.0-0.2); Basophils Percent Auto 0.8 % (0-2); Eosinophils Absolute Auto 0.4 X10*3/uL (0.0-0.4); Eosinophils Percent Auto 4.6 % (0-4); Hematocrit 43.9 % (37.0-47.0); Hemoglobin 14.3 g/dl (12.0-16.0); Imm Gran Abs Auto 0.02 X10*3/uL (0.00-0.03); Imm Gran Pct Auto 0.2 % (0.0-0.4); Lymphocytes Absolute Auto 2.7 X10*3/uL (1.2-4.9); Lymphocytes Percent Auto 30.8 % (20-40); Mean Corpuscular HGB Conc 32.6 g/dl (31.0-35.0); Mean Corpuscular Hemoglobin 29.5 pg (27.0-33.0); Mean Corpuscular Volume 90.5 fL (80.0-98.0); Mean Platelet Volume 10.5 fL (9.4-12.3); Monocytes Absolute Auto 0.5 X10*3/uL (0.1-1.2); Monocytes Percent Auto 5.5 % (2-11); Neutrophils Absolute Auto 5.1 x10*3/uL (2.0-8.3); Neutrophils Percent Auto 58.1 % (45-73); Platelet Count 283 X10*3/uL (160-400); Red Blood Count 4.85 X10*6/uL (4.20-5.50); Red Cell Distribution Width 14.3 % (11.0-16.0); White Blood Count 8.7 X10*3/uL (4.8-10.8)
[2023-05-13 12:43] LABS: Alanine Aminotransferase 19 U/L (0-31); Albumin Level 4.3 g/dL (3.5-5.0); Alkaline Phosphatase 109 U/L (39-117); Anion Gap 12 (12-20); Aspartate Amino Transferase 22 U/L (5-31); Bilirubin Total 0.4 mg/dL (0.0-1.0); Blood Urea Nitrogen 14 mg/dL (9-16); Calcium 9.8 mg/dL (8.4-10.2); Carbon Dioxide 27 mmol/L (22-29); Chloride 110 mmol/L (96-108); Cholesterol 146 mg/dL (<200); Estimated Glomerular Filt Rate 45; Glucose Fasting 104 mg/dL (60-99); HDL Cholesterol 45 mg/dL (>40); LDL Cholesterol Calculated 78 mg/dL (<100); Potassium 4.1 mmol/L (3.3-5.1); Sodium 145 mmol/L (135-145); Total Protein 7.5 g/dL (6.5-8.0); Triglycerides 119 mg/dL (<150)
[2023-05-13 13:00] LABS: TSH reflex Free T4 0.74 uIU/mL (0.32-4.0)
== END 2023-05-13 09:42 | disposition home or self-care (01) ==
LOC: HO.WFDLDS 09:41
PROVIDERS: Visit Provider Nurse Practitioner Family
DX: Z00.00 Encounter for general adult medical examination without abnormal findings (principal); Z13.6 Encounter for screening for cardiovascular disorders
CPT/HCPCS: 36415; 80053; 80061; 81003; 84443; 85025

== ENCOUNTER 2023-05-27 10:10 | Outpatient (AMB) | payer OTHER, SELFPAY ==
--- NOTE | 2023-05-27 10:12 | A.OFFPC_ITS ---
Vital Signs 05/27/23 10:13 05/27/23 11:14 Height 5 ft 4 in Weight 195 lb 4 oz BMI 33.5 BP 140/70 H 130/70 Blood Pressure Location Lt brachial Rt brachial Position Sitting Sitting Respiration 13 Pulse 81 Pulse Source Pulse Oximeter Temp 97.6 F Temp Source Temporal Artery Scan Pulse Oximetry (%) 97 Oxygen Delivery Method Room Air Intake Visit Reasons: CPE Pharmaceutical Assistant Required: No Accompanied by: Self / Same As Patient Allergies acetaminophen [Vicodin] Allergy (Unknown, Verified 05/27/23 10:58) tongue swells, hives on bottom of feet adhesive tape [Adhesive Tape] Allergy (Unknown, Verified 05/27/23 10:58) Rash hydrocodone [Vicodin] Allergy (Unknown, Verified 05/27/23 10:58) tongue swells, hives on bottom of feet latex [Latex] Allergy (Unknown, Verified 05/27/23 10:58) Rash, red blisters penicillin V Allergy (Unknown, Verified 05/27/23 10:58) hives, rash Penicillins Allergy (Unknown, Verified 05/27/23 10:58) Rash, Nausea and Vomiting Sulfa (Sulfonamide Antibiotics) Allergy (Unknown, Verified 05/27/23 10:58) Hives, rash amphetamine [Adderall] Adverse Reaction (Unknown, Verified 05/27/23 10:58) diarrhea dextroamphetamine [Adderall] Adverse Reaction (Unknown, Verified 05/27/23 10:58) diarrhea morphine [MORPHINE] Adverse Reaction (Unknown, Verified 05/27/23 10:58) Nausea and Vomiting phenobarbital [Phenobarbital] Adverse Reaction (Unknown, Verified 05/27/23 10:58) extreme hyperactivity meperidine [From Demerol] Adverse Reaction (Verified 05/27/23 10:58) Vomiting Medication List - Last Reconciled 05/27/23 by Terese Silvestre CNP ascorbic acid (vitamin C) 1,000 mg PO DAILY 90 days aspirin 81 mg PO DAILY atorvastatin 80 mg PO BEDTIME 30 days estradiol 0.01%(0.1mg/gram) vaginally 3 times a week; pea sized amount to urethra 3 times a week 30 days lisinopril 20 mg PO DAILY methenamine hippurate 1 g PO daily 90 days metoprolol succinate ER 100 mg PO DAILY 90 days miscellaneous medical supply 2 pair of support stockings miscellaneous medical supply as directed; contours incontinent pad maximum 28 per pack 1 month nitrofurantoin monohyd/m-cryst 100 mg (Macrobid) 100 mg PO BID 7 days quetiapine ER 100 mg (2 x 50 mg) PO BEDTIME 30 days sennosides (senna) 8.6 mg PO BEDTIME 90 days zolpidem 5 mg PO BEDTIME 30 days Tobacco use date assessed: 05/27/23 Fall risk assessment: No Falls in past year Last assessed Fall Risk: 05/27/23 Dental Screening Dental Screen Date: 05/27/23 Did you have a dental visit in the last 12 months?: No Did you have a dental problem in the last 6 months where you did not have access to dental care?: No Was dental information given to patient?: Yes HPI HPI Comments History of Present Illness Details 67-year-old female presents for an exten ded physical exam She has history of hypertension, dyslipidemia, prediabetes, DANIEL, osteoporosis, recurrent UTI, overactive bladder, 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, anxiety, and bipolar 1 disorder History of laparoscopic bilateral oophorectomy in 2022 and right left mastectomy r/t bacteria infection She admits to taking her medications as prescribed without adverse reactions She sees a therapist weekly and psychiatrist every 3 months for her mood disorders Recent lab results are unremarkable She is followed by endocrinology, Nephrology, Gastroenterology, urology, Ophthalmology, and speech therapy Last mammogram was in June 2022: Normal She does not recall her last pap smear text Her last DEXA scan was in June 2021: Osteoporosis Last eye appointment with Dr. Vieira was a week ago; seen annually She has not seen a dentist for about 20 years; she wears dentures She notes she does not take the flu vaccine and also not interested in getting the pneumonia vaccine. She states that she was vaccinated for shingels [facility] Medical History (Updated 05/27/23 @ 11:23 by Terese Silvestre CNP) FH: cholecystectomy Hypersomnia Snoring Expressive aphasia Dysgraphia Stroke Multiple allergies Cholelithiasis Overactive bladder Recurrent urinary tract infection History of CVA with residual deficit Expressive aphasia History of CVA (cerebrovascular accident) Refused influenza vaccine COVID-19 vaccination declined Impaired fasting glucose Dyslipidemia Osteoporosis Psoriasis Gestational diabetes Hx of uterine prolapse Osteoarthritis of knees, bilateral Bipolar 1 disorder CKD (chronic kidney disease) stage 2, GFR 60-89 ml/min Essential hypertension Rectocele Urge incontinence Elevated blood pressure reading in office with diagnosis of hypertension Hypotonic bladder Urinary tract infection Dyspareunia in female Surgical History (Updated 05/27/23 @ 10:21 by Lissy Booker MA) History of bilateral oophorectomy H/O mastectomy Hx of cholecystectomy History of total left knee replacement (TKR) History of total right knee replacement (TKR) History of Maloney urethropexy Hx of total vaginal hysterectomy H/O rectocele repair Family History Father Diabetes mellitus CHF (congestive heart failure) Mother FH: stomach cancer Crohn disease Son Mental health disorder Social History Household Members: Children Housing: Apartment Do you presently have visiting nurse or other home services: Yes Patient Tobacco Use Status: Current someday Tobacco user Cigarette Packs Per Day: 0.1 Cigarettes Per Day: 2 Years Smoked: 40 e-Cigarette/Vaping Use: Never Used Second Hand Smoke Exposure: No service: No Current occupational status: disabled Cognitive needs: No Hearing needs: No Vision needs: No Questionnaire PHQ-9 Over the last 2 weeks, how often have you been bothered by any of the following problems? 1. Little interest or pleasure in doing things: not at all 2. Feeling down, depressed, or hopeless: not at all 3. Trouble falling or staying asleep, or sleeping too much: not at all 4. Feeling tired or having little energy: not at all 5. Poor appetite or overeating: not at all 6. Feeling bad about yourself - or that you are a failure or have let yourself or your family down: not at all 7. Trouble concentrating on things, such as reading the newspaper or watching television: not at all 8. Moving or speaking so slowly that other people could have noticed. Or the opposite - being so fidgety or restless that you have been moving around a lot more than usual: not at all 9. Thoughts that you would be better off or of hurting yourself in some way: not at all Total score: 0 Depression Screening Interpretation: Negative Depression Screening Done: Yes 71437 - PHQ-9 Billing: Yes Source: Developed by Drs. Ziggy Martino, Eben Contreras and colleagues, with an educational susie from [employer]. Thrive Questionnaire Date Thrive assessed: 05/27/23 I am a: Patient What is your living situation today?: I have a steady place to live Within the past 12 months, did the food you bought not last and you didn't have the money to get more?: Never true Within the past 12 months, did you worry whether your food would run out before you got money to buy more?: Never true Do you have trouble paying for medicines?: No Do you have trouble getting transportation to medical appointments?: No Do you have trouble paying your heating and electricity bill?: No Do you have trouble taking care of your child, family member or friend?: No Do you have trouble with day-to-day activities such as bathing, preparing meals, shopping, managing finances, etc.?: Yes Are you currently unemployed and looking for a job?: No Are you interested in more education?: No Please select the resources that you would like help with: Daily support Currently or been in a relationship where the following occur: no concerns reported THRIVE Score: 0 AUDIT C Alcohol Use Questionnaire (AUDIT-C) 1. How often do you have a drink containing alcohol?: Never 3. How often do you have six or more drinks on one occasion?: Never Total Score: 0 JOSE-7 AMB Questionnaire JOSE-7 Date JOSE - 7 assessed: 05/27/23 Feeling nervous, anxious, or on edge: 1 = Several days Not being able to stop or control worryin = Several days Worrying too much about different things: 1 = Several days Trouble relaxin = Not at all Being so restless that it is hard to sit still: 0 = Not at all Becoming easily annoyed or irritable: 0 = Not at all Feeling afraid as if something awful might happen: 0 = Not at all Total JOSE-7 score (0-4 normal; 5-9 mild; 10-14 moderate; 15-21 severe): 3 Source: Developed by Drs. Ziggy Martino, Eben Contreras and colleagues, with an educational susie from [employer]. JOSE-7 Assessment Billing JOSE-7 Assessment Tool: JOSE-7 Assessment 38481 Review of Systems Const Details: Denies chills, Denies fatigue, Denies fever(s), Denies headache(s) and Denies weakness HEENT Denies change in vision, Denies dizziness, Denies headache(s), Denies hearing loss, Denies nasal congestion, Denies sinus pain, Denies sinus pressure and Denies sore throat Card Denies chest pain, Denies lightheadedness, Denies dyspnea and Denies other (palpitations) Resp Denies cough, Denies dyspnea and Denies wheezing GI Denies abdominal pain, Denies melena, Denies hematochezia, Denies change in bowel habits, Denies dyspepsia and Denies nausea Denies hematuria and Denies dysuria Musc Denies abnormal gait, Denies myalgias, Denies arthralgias, Denies numbness and Denies tingling Skin/Breast Denies rash, Denies unusual bruising and Denies wounds Neuro Denies abnormal gait, Denies dizziness, Denies headache(s), Denies memory loss, Denies numbness, Denies Sensory deficit (Neuro), Denies tingling and Denies weakness Psych Denies anxiety, Denies depression and Denies memory loss Endo Denies cold intolerance, Denies fatigue, Denies heat intolerance, Denies polydipsia and Denies polyuria Jaden/Lymph Denies easy bleeding and Denies easy bruising Aller/Immun Denies wheezing Physical exam (Primary Care) Vital Signs: Last Vital Signs Temp 97.6 F 05/27/23 10:13 Pulse 81 05/27/23 10:13 Resp 13 05/27/23 10:13 BP 130/70 05/27/23 11:14 Pulse Ox 97 05/27/23 10:13 Oxygen Delivery Method Room Air 05/27/23 10:13 BMI result Body Mass Index 33.5 Tobacco/Smoking Status: Tobacco use Status Tobacco use date assessed 05/27/23 05/27/23 10:25 Patient Tobacco Use Status Current someday Tobacco 05/27/23 10:25 e-Cigarette/Vaping Use Never Used 05/27/23 10:13 PHQ-9: PHQ-9 Score PHQ-9: Total score 0 05/27/23 10:53 Depression Screening Interpretation: Negative Thrive Assessment: Date of Thrive Assessment Date Thrive assessed 05/27/23 05/27/23 10:25 Currently or been in a relationship where the following occur: no concerns reported Const Other: General: no acute distress, well developed, alert and awake Nutritional Appearance: well nourished Orientation/consciousness: patient oriented x3 [facility] Head: Yes normocephalic and Yes atraumatic Ears: hearing grossly normal bilaterally and TM's normal bilaterally General nose exam: Normal external nose present and Normal nares present Mouth: Normal oral and palatal mucosa present and moist mucous membranes Teeth and gingiva: dentition normal Throat: Yes oropharynx normal Eyes Pupils: Equal, round and reactive pupils present and Pupil accommodation reflex normal EOM: EOMs intact bilaterally Neck Neck: Yes normal visual inspection, Yes no lymphadenopathy and Yes trachea midline Thyroid: Thyroid normal Carotids: no bruits Lymphatic: no lymphadenopathy noted Chest Chest palpation & inspection: normal inspection of the chest Resp Effort & Inspection: normal respiratory effort Auscultation: clear to auscultation bilaterally Cardio Rate: regular rate Rhythm: regular rhythm Heart sounds: S1 normal heart sound present, S2 normal heart sound present, no gallops, no murmurs and no rubs Bruits: no abdominal aortic bruits and no carotid bruits GI Palpation (GI): No Abdominal aortic bruit present, Soft to palpation, nontender, No hepatosplenomegaly present and No Rebound tenderness present Auscultation: normal bowel sounds General: Yes no CVA tenderness Back/Spine/Pelvis Back: no CVA tenderness Cervical Spine: cervical ROM normal and No Cervical spine tenderness Thoracic/Lumbar Spine: thoraco-lumbar ROM normal, No pain with thoraco-lumbar ROM, No thoracic spinal tenderness and No lumbar spinal tenderness Skin General: warm and dry. Normal skin color. Normal skin turgor Lesions: no lesions Rashes: no rashes Trauma: no lacerations or abrasions Wounds: no wounds Nails: normal Neuro General: patient oriented x3, gait normal and CN's II-XI intact bilaterally Cranial nerves: Yes Equal, round and reactive pupils present Cognition (Neuro): normal cognition Gait exam (Neuro): Normal gait present Motor exam (neuro): 5/5 motor strength present throughout Sensory Exam: No Sensory deficit (Neuro) Deep tendon reflexes (DTR's): Right patellar reflex intensity grade: 2+ and Left patellar reflex intensity grade: 2+ Extrem General: Yes normal to inspection, No edema and No calf tenderness Psych Appearance: grossly normal Affect: normal affect Attitude: cooperative Thought process: Normal thought process present Assessment and Plan Assessment & Plan (1) Physical exam, annual: Code(s): Z00.00 - Encounter for general adult medical examination without abnormal findings Plan: No significant physical restrictions or limitations noted Advised to continue with current treatment regimen Healthy diet and routine exercise encouraged Continue follow-up with specialists as planned Follow-up in 3 months for hypertension and dyslipidemia Return sooner with symptoms or concerns Verbalized understanding and agreed with treatment plan (2) Vaccine counseling: Code(s): Z71.85 - Encounter for immunization safety counseling Plan: Declines flu and pneumonia vaccines Instructed on the importance of vaccination and encouraged to get vaccinated for flu and pneumonia (3) Pap smear for cervical cancer screening: Code(s): Z12.4 - Encounter for screening for malignant neoplasm of cervix Plan: She does not remember her last Pap smear test History of bilateral oophorectomy Referred to [facility] oil distributor Orders: Orders Lipid Panel 3 Months E78.5 - Hyperlipidemia, unspecified Referrals [facility] ATTENDANT Referral Z12.4 - Encounter for screening for malignant neoplasm of cervix Coding Level of Care Code Est Pt Prev Care >65y(63852) Diagnoses Physical exam, annual Z00.00 Vaccine counseling Z71.85 Pap smear for cervical cancer screening Z12.4 Additional Codes JOSE-7 Assessment Billing - JOSE-7 Assessment Tool: JOSE-7 Assessment 53352 ([id number])
[2023-05-27 10:13] VITALS: BP 140/70; PULSE 81; RESP 13; TEMP 36.4; O2SAT 97; BMI 33.5
[2023-05-27 11:14] VITALS: BP 130/70
== END 2023-05-27 11:22 | disposition home or self-care (01) ==
PROVIDERS: PCP Nurse Practitioner Family; Visit Provider Nurse Practitioner Family
DX: Z00.00 Encounter for general adult medical examination without abnormal findings (principal); Z71.85 Encounter for immunization safety counseling; Z12.4 Encounter for screening for malignant neoplasm of cervix
CPT/HCPCS: 99397

== ENCOUNTER 2023-06-08 13:59 | Outpatient (AMB) | payer OTHER, SELFPAY ==
[2023-06-08 14:16] VITALS: BP 132/80; PULSE 88; BMI 33.8
--- NOTE | 2023-06-08 14:16 | MHC.OFFVIS ---
Intake Vital Signs 06/08/23 14:16 Height 5 ft 4 in Weight 197 lb 1.492 oz BMI 33.8 BP 132/80 Blood Pressure Location Lt brachial Position Sitting Pulse 88 Pulse Source Pulse Oximeter Intake Visit Reasons: Osteoporosis in CKD-vm not set up Intake Note: Patient present today for Osteoporosis follow up visit. Manufacturing Executive Required: No Accompanied by: Self / Same As Patient Allergies acetaminophen [Vicodin] Allergy (Unknown, Verified 06/08/23 14:22) tongue swells, hives on bottom of feet adhesive tape [Adhesive Tape] Allergy (Unknown, Verified 06/08/23 14:22) Rash hydrocodone [Vicodin] Allergy (Unknown, Verified 06/08/23 14:22) tongue swells, hives on bottom of feet latex [Latex] Allergy (Unknown, Verified 06/08/23 14:22) Rash, red blisters penicillin V Allergy (Unknown, Verified 06/08/23 14:22) hives, rash Penicillins Allergy (Unknown, Verified 06/08/23 14:22) Rash, Nausea and Vomiting Sulfa (Sulfonamide Antibiotics) Allergy (Unknown, Verified 06/08/23 14:22) Hives, rash amphetamine [Adderall] Adverse Reaction (Unknown, Verified 06/08/23 14:22) diarrhea dextroamphetamine [Adderall] Adverse Reaction (Unknown, Verified 06/08/23 14:22) diarrhea morphine [MORPHINE] Adverse Reaction (Unknown, Verified 06/08/23 14:22) Nausea and Vomiting phenobarbital [Phenobarbital] Adverse Reaction (Unknown, Verified 06/08/23 14:22) extreme hyperactivity meperidine [From Demerol] Adverse Reaction (Verified 06/08/23 14:22) Vomiting HPI HPI Comments History of Present Illness Details 67 YO Female with PMHx CKD stage 2 is seen in consultation at the request of PCP for Osteoporosis. First diagnosed in recently . Received treatment in the past with [facility] ,for 1 yr still on . Tolerated treatment well without complication. No history of pathologic fracture or ONJ. Has severla servings of dietary calcium per day in the form of daily. Not Takes Calcium supplement Takes ? IU of Vitamin D daily in MVI . Denies ever using PPI, anticoagulant, antiepileptic or glucocorticoid medication. Does weight bearing exercise 7 days per week in the form of walking . Fracture history: No Height loss: No TERRAZZO LAYER history: age 40 still had ovaries Denies history of Kidney stones: Has family history of Osteoporosis but no hip fracture. Has false teeth No planned upcoming dental work or extractions. DXA dated 07/07/21 :FINDINGS: AP SPINE L1-L4: Current: BMD 1.011 g/cm2, Z-score -0.7, T-score -1.4, osteopenia, 4.1% increase from previous, 1.9% increase from baseline (<5% change is not significant). Prior: BMD 0.971 g/cm2. Baseline: BMD 0.992 g/cm2. LEFT FEMUR, NECK: Current: BMD 0.691 g/cm2, Z-score -1.6, T-score -2.5, osteoporosis. Prior: BMD 0.631 g/cm2. Baseline: BMD 0.643 g/cm2. LEFT FEMUR, TOTAL: Current: BMD 0.679 g/cm2, Z-score -2.1, T-score -2.6, osteoporosis, 13.7% increase from previous, 2.0% increase from baseline (<5% change is not significant). Prior: BMD 0.597 g/cm2. Baseline: BMD 0.666 g/cm2. IDENTIFIED RISK FACTORS: Early menopause, secondary osteoporosis, osteoporosis, renal, tobacco use (current smoker), hysterectomy. HISTORY OF FRACTURE: None listed. MEDICATIONS: Calcium or multivitamin. MM/XR DEXA axial skeleton IMPRESSION: 1. DIAGNOSIS: Osteoporosis based on the lowest T-score value of -2.6 in the total femur applying World Health Organization criteria.? ? Labs: No fx since last visit [facility] Medical History (Updated 05/27/23 @ 11:23 by Terese Silvestre CNP) FH: cholecystectomy Hypersomnia Snoring Expressive aphasia Dysgraphia Stroke Multiple allergies Cholelithiasis Overactive bladder Recurrent urinary tract infection History of CVA with residual deficit Expressive aphasia History of CVA (cerebrovascular accident) Refused influenza vaccine COVID-19 vaccination declined Impaired fasting glucose Dyslipidemia Osteoporosis Psoriasis Gestational diabetes Hx of uterine prolapse Osteoarthritis of knees, bilateral Bipolar 1 disorder CKD (chronic kidney disease) stage 2, GFR 60-89 ml/min Essential hypertension Rectocele Urge incontinence Elevated blood pressure reading in office with diagnosis of hypertension Hypotonic bladder Urinary tract infection Dyspareunia in female Surgical History History of partial mastectomy of left breast History of bilateral oophorectomy H/O mastectomy Hx of cholecystectomy History of total left knee replacement (TKR) History of total right knee replacement (TKR) History of Maloney urethropexy Hx of total vaginal hysterectomy H/O rectocele repair Family History Father Diabetes mellitus CHF (congestive heart failure) Mother FH: stomach cancer Crohn disease Son Mental health disorder Social History Household Members: Children Housing: Apartment Do you presently have visiting nurse or other home services: Yes Patient Tobacco Use Status: Current someday Tobacco user Cigarette Packs Per Day: 0.1 Cigarettes Per Day: 2 Years Smoked: 40 e-Cigarette/Vaping Use: Never Used Second Hand Smoke Exposure: No service: No Current occupational status: disabled Cognitive needs: No Hearing needs: No Vision needs: No Physical Exam Vital Signs: Last Vital Signs Pulse 88 06/08/23 14:16 BP 132/80 06/08/23 14:16 BMI result Body Mass Index 33.8 Assessment & Plan Assessment & Plan (1) Osteoporosis: Code(s): M81.0 - Age-related osteoporosis without current pathological fracture Plan: This 67-year-old white female with a history of osteoporosis with partial secondary workup in the setting of CKD stage 3 b. Plan is to have the patient follow-up with Nephrology to optimize CKD bone mineral disease including elevated PTH.. Will recheck PTH long with calcium, albumin 25 hydroxy vitamin-D. Will repeat DEXA bone density next month Orders: Orders Albumin Level Today M81.0 - Age-related osteoporosis without current pathological fracture Parathyroid Hormone Intact Today M81.0 - Age-related osteoporosis without current pathological fracture Calcium Today M81.0 - Age-related osteoporosis without current pathological fracture Vitamin D 25-OH Total Today M81.0 - Age-related osteoporosis without current pathological fracture XR DEXA axial skeleton 1 Month M81.0 - Age-related osteoporosis without current pathological fracture Coding Level of Care Code Est Pt Level 3 (42007) Diagnoses Osteoporosis M81.0
== END 2023-06-08 15:09 | disposition home or self-care (01) ==
PROVIDERS: PCP Nurse Practitioner Family; Visit Provider Internal Medicine Endocrinology, Diabetes & Metabolism
DX: M81.0 Age-related osteoporosis without current pathological fracture (principal)
CPT/HCPCS: 99213

== ENCOUNTER → 2023-06-08 13:59 | Outpatient (BNVA) | payer OTHER, SELFPAY | PROVIDERS: PCP Nurse Practitioner Family; Visit Provider Internal Medicine Endocrinology, Diabetes & Metabolism | DX: M81.0 Age-related osteoporosis without current pathological fracture (principal) | CPT/HCPCS: 99212 ==

== ENCOUNTER 2023-07-26 09:18 | Outpatient (REF) | payer OTHER, SELFPAY ==
--- NOTE | ~2023-07-26 | MM_ITS ---
EXAMINATION: BONE DENSITOMETRY CLINICAL INDICATION: Age-related osteoporosis without current pathological fracture. COMPARISON: Previous BD dated 07/07/2021 and baseline BD dated 07/23/2010. TECHNIQUE: Using a Superfeedr DXA System (software version: 13.1) manufactured by [employer], dual-energy x-ray absorptiometry was performed of the lumbar spine and left hip. The images are of good technical quality. Summary results are attached. FINDINGS: LEFT FEMUR, NECK: Current: BMD 0.647 g/cm2, Z-score -1.7, T-score -2.8, osteoporosis. Prior: BMD 0.691 g/cm2. Baseline: BMD 0.643 g/cm2. LEFT FEMUR, TOTAL: Current: BMD 0.599 g/cm2, Z-score -2.4, T-score -3.2, osteoporosis, 11.8% decrease from previous, 10.1% decrease from baseline (<5% change is not significant). Prior: BMD 0.679 g/cm2. Baseline: BMD 0.666 g/cm2. AP SPINE L1-L4: Current: BMD 0.858 g/cm2, Z-score -1.7, T-score -2.7, osteoporosis, 15.1% decrease from previous, 13.5% decrease from baseline (<5% change is not significant). Prior: BMD 1.011 g/cm2. Baseline: BMD 0.992 g/cm2. IDENTIFIED RISK FACTORS: Bilateral ovariectomy, hysterectomy, menopause, tobacco user (current smoker). HISTORY OF FRACTURE: None listed. MEDICATIONS: Multivitamin. MM/XR DEXA axial skeleton IMPRESSION: 1. DIAGNOSIS: Osteoporosis based on the lowest T-score value of -3.2 in the total femur applying World Health Organization criteria. 2. 10-YEAR FRACTURE RISK PREDICTION, FRAX: According to the guidelines, FRAX calculation should only be performed on patients in the osteopenia bone density category. Therefore, FRAX was not performed on this patient.? 3. Treatment Recommendations: NOF guidelines recommend consideration for treatment in postmenopausal women and men age 50 and older presenting with the following: -A hip or vertebral (clinical or morphometric) fracture. -T-score less than or equal to -2.5 at the femoral neck or spine after appropriate evaluation to exclude secondary causes. -Low bone mass at the hip or spine and a 10-year fracture probability by FRAX of greater than or equal to 3% for hip fracture or greater than or equal to 20% for major osteoporotic fracture based on the [place] adapted WHO algorithm. 4. Other Recommendations: All treatment decisions require clinical judgment and consideration of individual patient factors, including patient preferences, comorbidities, previous drug use, risk factors not captured in the FRAX model (e.g. frailty, falls, vitamin D deficiency, increased bone turnover, interval significant decline in bone density) and possible under or overestimation of fracture risk by FRAX. Additional medical evaluation for secondary cause of low bone mineral density may be appropriate. FUTURE SCAN RECOMMENDATION: People with diagnosed cases of osteoporosis or at high risk for fracture should have regular bone mineral density tests. For patients eligible for Medicare, routine testing is allowed once every 2 years. The testing frequency can be increased to one year for patients who have rapidly progressing disease, those who are receiving or discontinuing medical therapy to restore bone mass, or have additional risk factors.
--- NOTE | ~2023-07-26 | MM_ITS ---
EXAMINATION: MM SCREENING DIGITAL BREAST TOMOSYNTHESIS, RIGHT CLINICAL INFORMATION: Screening. Asymptomatic. The patient is status post extensive left breast tissue and axillary tissue removal secondary to severe infection. COMPARISON: Mammography: This study is compared with prior exams dating back to 2020. TECHNIQUE: Digital breast tomosynthesis is performed in both the craniocaudal and mediolateral oblique views along with computer-aided detection (CAD). Synthesized 2D images are generated from the tomosynthesis. FINDINGS: The breasts are heterogeneously dense, which may obscure small masses (ACR BI-RADS breast composition Category c). There are no significant masses, abnormal calcifications, or other abnormalities. There is a tissue marker in the superior aspect of the right breast from prior benign percutaneous biopsy. MM/MM tomosynthesis screening RT IMPRESSION: No mammographic evidence of malignancy. ASSESSMENT: BI-RADS BI-RADS 2 - Benign Findings RECOMMENDATION: Routine annual mammography screening. 1 year F/U This examination should not preclude the clinical evaluation of a suspicious palpable abnormality. This patient's information was entered into a reminder system with a target due date for their next mammogram.
== END 2023-07-26 09:19 | disposition home or self-care (01) ==
LOC: HO.MAMMO 09:18
PROVIDERS: PCP Nurse Practitioner Family; Visit Provider Internal Medicine Endocrinology, Diabetes & Metabolism
DX: Z12.31 Encounter for screening mammogram for malignant neoplasm of breast (principal); Z13.820 Encounter for screening for osteoporosis; Z78.0 Asymptomatic menopausal state; M81.0 Age-related osteoporosis without current pathological fracture
CPT/HCPCS: 51798; 77063; 77067; 77080; 81003; 99212

== ENCOUNTER → 2023-07-26 10:30 | Outpatient (BNV) | payer OTHER, SELFPAY | PROVIDERS: PCP Nurse Practitioner Family; Visit Provider Radiology Diagnostic Radiology | DX: Z12.31 Encounter for screening mammogram for malignant neoplasm of breast (principal) | CPT/HCPCS: 77063; 77067 ==

== ENCOUNTER 2023-07-26 11:09 | Outpatient (AMB) | payer OTHER, SELFPAY ==
--- NOTE | 2023-07-26 11:18 | A.OFFVIS_ITS ---
Intake Visit Reasons: 3m/PVR Intake Note: Patient presents today for follow up Recurrent UTI Urology Medications: Methenamine, Vitamin C, Estradiol Cream, Tolterodine Blood Thinner: Aspirin PVR: 43ml's Deputy Manager Required: No Accompanied by: Self / Same As Patient Allergies acetaminophen [Vicodin] Allergy (Unknown, Verified 07/26/23 14:13) tongue swells, hives on bottom of feet adhesive tape [Adhesive Tape] Allergy (Unknown, Verified 07/26/23 14:13) Rash hydrocodone [Vicodin] Allergy (Unknown, Verified 07/26/23 14:13) tongue swells, hives on bottom of feet latex [Latex] Allergy (Unknown, Verified 07/26/23 14:13) Rash, red blisters penicillin V Allergy (Unknown, Verified 07/26/23 14:13) hives, rash Penicillins Allergy (Unknown, Verified 07/26/23 14:13) Rash, Nausea and Vomiting Sulfa (Sulfonamide Antibiotics) Allergy (Unknown, Verified 07/26/23 14:13) Hives, rash amphetamine [Adderall] Adverse Reaction (Unknown, Verified 07/26/23 14:13) diarrhea dextroamphetamine [Adderall] Adverse Reaction (Unknown, Verified 07/26/23 14:13) diarrhea morphine [MORPHINE] Adverse Reaction (Unknown, Verified 07/26/23 14:13) Nausea and Vomiting phenobarbital [Phenobarbital] Adverse Reaction (Unknown, Verified 07/26/23 14:13) extreme hyperactivity meperidine [From Demerol] Adverse Reaction (Verified 07/26/23 14:13) Vomiting Medication List - Last Reconciled 07/26/23 by GENEVA Redding amlodipine 5 mg PO DAILY ascorbic acid (vitamin C) 1,000 mg PO DAILY 90 days aspirin 81 mg PO DAILY atorvastatin 80 mg PO BEDTIME 30 days estradiol 0.01%(0.1mg/gram) vaginally 3 times a week; pea sized amount to urethra 3 times a week 30 days lisinopril 20 mg PO DAILY methenamine hippurate 1 g PO daily 90 days metoprolol succinate ER 100 mg PO DAILY 90 days miscellaneous medical supply 2 pair of support stockings miscellaneous medical supply as directed; contours incontinent pad maximum 28 per pack 1 month nitrofurantoin monohyd/m-cryst 100 mg (Macrobid) 100 mg PO BID 7 days quetiapine ER 100 mg (2 x 50 mg) PO BEDTIME 30 days sennosides (senna) 8.6 mg PO BEDTIME 90 days tolterodine ER 4 mg PO DAILY zolpidem 5 mg PO BEDTIME 30 days HPI Comments Details: Bev is a pleasant 67 year-old female patient of Dr. Silvestre. She has a past medical history of bipolar, CKD stage 2, dyslipidemia, hypertension, history of CVA with expressive aphasia, osteoarthritis, recurrent urinary tract infections, and overactive bladder. She presents to the office today for follow- up regarding her frequent urinary tract infections and overactive bladder. Discussion with the patient today she reports to be doing and feeling well. She reports compliance with Estrace cream, methenamine, vitamin-C, and tolterodine as prescribed. She currently denies any bothersome urinary issues or concerns. She denies any UTI like symptoms. In office urinalysis results reviewed with the patient today. PVR 43 mL. 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 She reports to be recovering well. She also underwent oophorectomy with Dr. Eliznodo 12/20 followed by cholecystectomy. She denies urinary urgency, urinary frequency, incontinence, nocturia, hematuria, dysuria, foul smelling urine, changes to urinary stream, flank pain, fever, and or chills. She is happy with her current voiding parameters. She otherwise offers other issues or concerns at this time. [facility] Medical History FH: cholecystectomy Hypersomnia Snoring Expressive aphasia Dysgraphia Stroke Multiple allergies Cholelithiasis Overactive bladder Recurrent urinary tract infection History of CVA with residual deficit Expressive aphasia History of CVA (cerebrovascular accident) Refused influenza vaccine COVID-19 vaccination declined Impaired fasting glucose Dyslipidemia Osteoporosis Psoriasis Gestational diabetes Hx of uterine prolapse Osteoarthritis of knees, bilateral Bipolar 1 disorder CKD (chronic kidney disease) stage 2, GFR 60-89 ml/min Essential hypertension Rectocele Urge incontinence Elevated blood pressure reading in office with diagnosis of hypertension Hypotonic bladder Urinary tract infection Dyspareunia in female Surgical History History of partial mastectomy of left breast History of bilateral oophorectomy H/O mastectomy Hx of cholecystectomy History of total left knee replacement (TKR) History of total right knee replacement (TKR) History of Maloney urethropexy Hx of total vaginal hysterectomy H/O rectocele repair Family History Father Diabetes mellitus CHF (congestive heart failure) Mother FH: stomach cancer Crohn disease Son Mental health disorder Social History Household Members: Children Housing: Apartment Do you presently have visiting nurse or other home services: Yes Patient Tobacco Use Status: Current someday Tobacco user Cigarette Packs Per Day: 0.1 Cigarettes Per Day: 2 Years Smoked: 40 e-Cigarette/Vaping Use: Never Used Second Hand Smoke Exposure: No service: No Current occupational status: disabled Cognitive needs: No Hearing needs: No Vision needs: No Review of Systems Const Reports as per HPI Eyes Reports no additional complaints ENT Reports no additional complaints Card Reports no additional complaints Resp Reports no additional complaints GI Details: Reports as per HPI Reports as per HPI Musc Reports no additional complaints Skin/Breast Reports as per HPI Neuro Reports as per HPI Endo Reports no additional complaints Physical Exam Const General: cooperative, healthy appearing, comfortable, no acute distress, well developed, alert and awake Orientation/consciousness: patient oriented x3 Limitations: no limitations HEENT Head: Yes normal to inspection, Yes normocephalic and Yes atraumatic Ears: hearing grossly normal bilaterally Eyes General: appearance normal, both eyes and all related structures Neck Neck: Yes normal visual inspection and Yes trachea midline Chest Other: left sided chest dressing; clean dry and intact Resp Effort & Inspection: normal respiratory effort and able to speak in complete sentences Cardio Rate: regular rate GI Inspection: Yes normal to inspection General: Yes no CVA tenderness Back/Spine/Pelvis Back: no CVA tenderness Skin General skin exam: no rashes or lesions noted Neuro General: patient oriented x3 Extrem General: Yes normal to inspection Psych Appearance: grossly normal and well kempt Mental Status: mental status grossly normal Speech and movement: Normal speech and movement present and Clear speech present Affect: normal affect Attitude: cooperative Thought process: Normal thought process present Thought content: Normal thought content present Insight: Fair insight present (Psych) Judgement: Fair judgement present (Psych) Office Procedures Post Void Residual Post Residual Void Post Void Residual (PVR): [id number] Void Residual by ultrasound Results AMB Urinalysis, Automated UA Leukoctes 0 Emiliano/uL Last Edit by Tressa Romeo on 07/26/23 11:58 UA Nitrite Negative Last Edit by Tressa Romeo on 07/26/23 11:58 UA Urobilinogen 0.2 mg/dL Last Edit by Tressa Romeo on 07/26/23 11:58 UA Protein 0 mg/dL Last Edit by Tressa Romeo on 07/26/23 11:58 UA pH 6.0 Last Edit by Tressa Romeo on 07/26/23 11:58 UA Blood 0 Maximiliano/uL Last Edit by Tressa Romeo on 07/26/23 11:58 UA Specific [place] 1.010 Last Edit by Tressa Romeo on 07/26/23 11:58 UA Ketone Negative Last Edit by Tressa Romeo on 07/26/23 11:58 UA Bilirubin 0 mg/dL Last Edit by Tressa Romeo on 07/26/23 11:58 UA Glucose 0 mg/dL Last Edit by FolioDynamixjuanjo Romeo on 07/26/23 11:58 Results Reviewed Results Reviewed: Laboratory Last Values Urine pH (Auto) 6.0 07/26/23 11:49 Specific [place] (Auto) 1.010 07/26/23 11:49 Urine Protein (Auto) 0 mg/dL 07/26/23 11:49 Glucose (UA)(Auto) 0 mg/dL 07/26/23 11:49 Urine Ketones (Auto) Negative 07/26/23 11:49 Urine Blood (Auto) 0 Maximiliano/uL 07/26/23 11:49 Urine Nitrite (Auto) Negative 07/26/23 11:49 Urine Bilirubin (Auto) 0 mg/dL 07/26/23 11:49 Urine Urobilinogen (Auto) 0.2 mg/dL 07/26/23 11:49 Leukocyte Esterase (Auto) 0 Emiliano/uL 07/26/23 11:49 Assessment & Plan Assessment & Plan (1) UTI due to extended-spectrum beta lactamase (ESBL) producing Escherichia coli: Code(s): N39.0 - Urinary tract infection, site not specified; B96.29 - Other Escherichia coli [E. coli] as the cause of diseases classified elsewhere; Z16.12 - Extended spectrum beta lactamase (ESBL) resistance Category: Medical (2) Recurrent urinary tract infection: Code(s): N39.0 - Urinary tract infection, site not specified Category: Medical (3) Overactive bladder: Code(s): N32.81 - Overactive bladder Category: Medical (4) Incomplete bladder emptying: Code(s): R33.9 - Retention of urine, unspecified Category: Medical Plan In office urinalysis results reviewed with the patient today; as noted above. PVR 43ml's. Discussed UTI prevention with D mannose supplement, vitamin-C, increasing fluid intake, behavioral therapy with timed voiding, perineal hygiene and postcoital voiding, and management of constipation with stool softeners and increased fiber intake. Continue methenamine, vitamin-C, Estrace, and tolterodine as prescribed. Patient currently denies any bothersome urinary issues or concerns. She reports be happy with current voiding parameters. Follow-up in 6 months with PVR; or sooner with any issues, concerns, and or questions. Orders: Orders AMB Urinalysis Automated Today Z13.9 - Encounter for screening, unspecified AMB Post Void Residual by ultrasound Today R33.9 - Retention of urine, unspecified Patient Instructions: The patient had an opportunity to ask questions regarding the treatment plan. All questions were answered. Physical exam, labs, and imaging were discussed and reviewed in detail. As well as risks, benefits, and discussion of treatment choices. No major barriers to understanding were identified. The patient expressed understanding and agreement with the above treatment plan. The patient was made aware they should contact our office by phone for worsening of their current condition, the appearance of new symptoms, or with any questions or concerns. Compliance is encouraged with any medications and follow up testing that is ordered. It is a privilege to be allowed the opportunity to participate in? your urological care.? Again, if you have any questions or concerns If you have any questions or concerns please do not hesitate to contact me. The office is [phone]. This note is constructed using voice recognition software. While every effort has been made to ensure accuracy nursery manager errors may have been included. Yours sincerely, GENEVA Redding Coding Level of Care Code Est Pt Level 3 (66019) Complex EM visit Add On G2211 Diagnoses UTI due to extended-spectrum beta lactamase (ESBL) producing Escherichia coli N39.0; B96.29; Z16.12 Recurrent urinary tract infection N39.0 Overactive bladder N32.81 Incomplete bladder emptying R33.9 CPT Codes Post Residual Void - PVR CPT Code: 72584-Dehj Void Residual by ultrasound ([id number])
== END 2023-07-26 12:09 | disposition home or self-care (01) ==
PROVIDERS: PCP Nurse Practitioner Family; Visit Provider Nurse Practitioner Family
DX: N39.0 Urinary tract infection, site not specified (principal); B96.29 Other Escherichia coli [E. coli] as the cause of diseases classified elsewhere; Z16.12 Extended spectrum beta lactamase (ESBL) resistance; N32.81 Overactive bladder; R33.9 Retention of urine, unspecified; Z13.9 Encounter for screening, unspecified
CPT/HCPCS: 99213; G2211

== ENCOUNTER 2023-08-11 13:00 | Outpatient (RCR) | payer OTHER, SELFPAY ==
--- NOTE | 2023-05-20 16:55 | MHC.SL.SOA ---
Referring Provider: Valorie Zamora MD Reason for Referral: Aphasia, CVA Date of Plan of Treatment:12/28/21 Onset of Symptoms/Illness:10/16/21 Date Treatment Started:12/28/21 Medical Diagnosis:Bipolar disorder, Expressive aphasia, L MCA, encephalopathy, hypertensive urgency, bipolar I disorder, obese class I Primary Speech Language Diagnosis:R47.01 Aphasia Secondary Speech Language Diagnosis: Authorization End Date:April 2023 Reason for Visit:Non-billable Event Subjective: Bev is a 67 year old female with a history of a left MCA stroke that occurred in September 2021.Bev was evaluated by a Speech-Language Pathologist on 12/28/2021 when she reported the following areas of difficulty: expressing thoughts, being understood by others, understanding what others are saying, orientation/memory, problem solving, focus/attention, reading/writing, word finding, maintaining conversation topic, speech fluency, and oral motor weakness. During the evaluation she reported that her main concerns as reading, writing, memory, attention, and word finding. Bev consistently attended weekly speech therapy sessions from January 2022 until November 2022 when she experienced medical issues that prevented her from attending appointments. Bev re-started speech therapy in February 2023. Objective: -Bev will complete the CLQT with 100% completion to better inform goals in the area of attention and memory. GOAL DISCHARGED: Bev was administered the CLQT on 03/31/2023 -Bev will name functional items with moderate support (i.e. phonemic cues) with 80% accuracy during confrontational naming tasks. GOAL MET -Bev will follow verbal or written 2-step command with no more than 1 repetition when provided with gestural support with 80% accuracy. GOAL DISCHARGED: Bev has not presented with difficulty following verbal/written commands during speech therapy sessions. -Bev will complete functional written language tasks (i.e. email or text conversations, filling out paperwork, etc.) when provided with minimal support with 80% accuracy. IN PROGRESS: Goal has not been targeted since Bev re-started [facility] [employer] tx in February 2023. She has shown great improvement in spelling and writing tasks therefore goal may not be needed. Plan to target during next round of [facility] [employer] tx. -Bev will independently request more time (vocally or with gesture) in order to process information or find correct words within communicative interactions in 80% of opportunities. GOAL MET: Bev has demonstrated improvement in self-advocacy skills and generally demonstrates less need for extended time to participate in social interactions. -When presented with numbers and letters orthographically, Bev will verbally state the correct target with 80% accuracy. GOAL CONTINUED: Bev continues to demonstrate some difficulty with letters and numbers. -When presented with numbers and letters auditorily, Bev will write write the correct target with 80% accuracy. GOAL CONTINUED: Bev continues to demonstrate some difficulty with letters and numbers. Assessment: Bev's scores on the Cognitive Linguistic Quick Test (CLQT) from March 2023 are summarized below: Domain: Score, Interpretation Attention: 159, Mild Memory: 122, Moderate Executive Functions: 17, Moderate Language: 29, WNL Visuospatial Skills: 59, Mild Clock Drawin, WNL Overall Composite Severity Rating: Mild Based on this recent testing and Bev's performance during speech therapy sessions, it is recommended that Bev continue speech therapy cognitive skills specifically in the areas of attention, memory, and executive functions. Although Bev continues to present intermittently with semantic and phonemic paraphasias, goals for language have been discharged at this time due to standardized testing within normal limits, Bev's demonstrated improvement in this area during speech therapy, and Bev's self-reported areas of concern and goals. Bev continues to demonstrate difficulty in the areas of problem solving, particularly when related to numbers and time. Bev reports continued difficulty with time management in her personal life such as getting ready to leave for an appointment at the appropriate time. She reports that sometimes she accidentally is ready an hour early and other times she her ride shows up when she hasn't begun getting ready. Bev continues to demonstrate difficulty in the areas of memory and attention. At times, Bev will accurately solve a time management problem, say the number aloud, and then when she goes to write it down on the paper she has already forgotten and needs to re-solve the problem. Plan: Recommend continue weekly speech therapy sessions for 12 weeks targeting attention, memory, and executive function skills. The following goals/objectives are recommended: -Bev will complete functional written language tasks (i.e. email or text conversations, filling out paperwork, etc.) when provided with minimal support with 80% accuracy. -When presented with numbers and letters orthographically, Bev will verbally state the correct target with 80% accuracy. -When presented with numbers and letters auditorily, Bev will write write the correct target with 80% accuracy. Status of Goals: Goal Continued -When presented with a string of numbers 5-7 digits in length, Bev will accurately recall the digits with minimal support in 80% of opportunities. -When presented with a 5-7 word list, Bev will accurately recall the digits with minimal support in 80% of opportunities. -Bev will complete alternating attention tasks (i.e. take notes while the therapist dictates information) with 80% accuracy given no more than 2 repetitions. -Bev will complete alternating attention tasks with 80% accuracy given intermittent minimal verbal cues to attend in a noisy environment in order to increase independence during functional tasks. Status of Goals: New Goal -Bev will complete moderate problem-solving tasks in the areas of time and money management (i.e. calculating totals, calculating days until bills are due, calculating how much time is needed to get somewhere) with 80% accuracy given intermittent moderate verbal and minimal written cues in order to increase independence during functional problem-solving tasks. Status of Goal: New Goal Seen by: Graduate/Clinical Fellow: No Supervisory Statement: f_Reg Query Last Value , MHC.AU.SIGNUR Speech Language Pathologist: Jeana Fowler M.A., [facility]
--- NOTE | 2023-11-18 17:53 | MHC.SL.SOA ---
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 During the evaluation she reported that her main concerns as reading, writing, memory, attention, and word finding. Bev consistently attended weekly speech therapy sessions from January 2022 until November 2022 when she experienced medical issues that prevented her from attending appointments. Bev re-started speech therapy in February 2023. Bev attended today's session on time in positive spirits per usual. Objective: -Bev required moderate support to complete word problems regarding time -Bev demonstrated accurate pill management skills Plan: Bev will be discharged from speech therapy effective immediately. Bev reports that she feels ready to discharge stating that she has enjoyed her time during speech therapy and has learned a lot. She may reach out in the future when she returns to work in about 6 months. It is recommended at that time Bev return for a full evaluation. Bev may benefit from future outpatient speech therapy in the areas of executive functioning, memory, word finding, and attention. Goal # : -Bev will complete functional written language tasks (i.e. email or text conversations, filling out paperwork, etc.) when provided with minimal support with 80% accuracy. Status of Goal: Discharge Goal Goal # : -When presented with numbers and letters orthographically, Bev will verbally state the correct target with 80% accuracy. -When presented with numbers and letters auditorily, Bev will write write the correct target with 80% accuracy. Status of Goal: Discharge Goal Goal # : -When presented with a string of numbers 5-7 digits in length, Bev will accurately recall the digits with minimal support in 80% of opportunities. -When presented with a 5-7 word list, Bev will accurately recall the digits with minimal support in 80% of opportunities. -Bev will complete alternating attention tasks (i.e. take notes while the therapist dictates information) with 80% accuracy given no more than 2 repetitions. -Bev will complete alternating attention tasks with 80% accuracy given intermittent minimal verbal cues to attend in a noisy environment in order to increase independence during functional tasks. Status of Goal: Discharge Goal Goal # : -Bev will complete moderate problem-solving tasks in the areas of time and money management (i.e. calculating totals, calculating days until bills are due, calculating how much time is needed to get somewhere) with 80% accuracy given intermittent moderate verbal and minimal written cues in order to increase independence during functional problem-solving tasks. Status of Goal: Discharge Goal Seen by: Graduate/Clinical Fellow: No Supervisory Statement: f_Reg Query Last Value , MHC.AU.SIGNAT Speech Language Pathologist: Jeana Fowler M.A., CCC-LOWERATOR OPERATOR
== END 2023-11-21 10:07 | disposition home or self-care (01) ==
LOC: HO.SH 13:00
PROVIDERS: Visit Provider Nurse Practitioner Family
DX: R47.01 Aphasia (principal)
CPT/HCPCS: 92507

== ENCOUNTER 2023-08-23 10:06 | Outpatient (AMB) | payer OTHER, SELFPAY ==
--- NOTE | 2023-08-23 10:14 | MHC.PC.OV ---
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 Accompanied by: Self / Same As Patient Allergies acetaminophen [Vicodin] Allergy (Unknown, Verified 08/23/23 10:47) tongue swells, hives on bottom of feet adhesive tape [Adhesive Tape] Allergy (Unknown, Verified 08/23/23 10:47) Rash hydrocodone [Vicodin] Allergy (Unknown, Verified 08/23/23 10:47) tongue swells, hives on bottom of feet latex [Latex] Allergy (Unknown, Verified 08/23/23 10:47) Rash, red blisters penicillin V Allergy (Unknown, Verified 08/23/23 10:47) hives, rash Penicillins Allergy (Unknown, Verified 08/23/23 10:47) Rash, Nausea and Vomiting Sulfa (Sulfonamide Antibiotics) Allergy (Unknown, Verified 08/23/23 10:47) Hives, rash amphetamine [Adderall] Adverse Reaction (Unknown, Verified 08/23/23 10:47) diarrhea dextroamphetamine [Adderall] Adverse Reaction (Unknown, Verified 08/23/23 10:47) diarrhea morphine [MORPHINE] Adverse Reaction (Unknown, Verified 08/23/23 10:47) Nausea and Vomiting phenobarbital [Phenobarbital] Adverse Reaction (Unknown, Verified 08/23/23 10:47) extreme hyperactivity meperidine [From Demerol] Adverse Reaction (Verified 08/23/23 10:47) Vomiting Medication List - Last Reconciled 08/23/23 by Terese Silvestre CNP amlodipine 5 mg PO DAILY ascorbic acid (vitamin C) 1,000 mg PO DAILY 90 days aspirin 81 mg PO DAILY atorvastatin 80 mg PO BEDTIME 30 days estradiol 0.01%(0.1mg/gram) vaginally 3 times a week; pea sized amount to urethra 3 times a week 30 days lisinopril 20 mg PO DAILY methenamine hippurate 1 g PO daily 90 days metoprolol succinate ER 100 mg PO DAILY 90 days miscellaneous medical supply 2 pair of support stockings miscellaneous medical supply as directed; contours incontinent pad maximum 28 per pack 1 month nitrofurantoin monohyd/m-cryst 100 mg (Macrobid) 100 mg PO BID 7 days quetiapine ER 100 mg (2 x 50 mg) PO BEDTIME 30 days sennosides (senna) 8.6 mg PO BEDTIME 90 days tolterodine ER 4 mg PO DAILY zolpidem 5 mg PO BEDTIME 30 days Tobacco use date assessed: 05/27/23 Fall risk assessment: No Falls in past year Last assessed Fall Risk: 08/23/23 Dental Screening Dental Screen Date: 05/27/23 HPI HPI Comments History of Present Illness Details 67-year-old female presents for hypertension and dyslipidemia follow-up She admits to taking her medications as prescribed without adverse reactions She did not get lipid panel blood work done as planned for this visit She notes that she has been eating healthy and walking routinely She offers no complaints and denies acute symptoms at this time [facility] Medical History FH: cholecystectomy Hypersomnia Snoring Expressive aphasia Dysgraphia Stroke Multiple allergies Cholelithiasis Overactive bladder Recurrent urinary tract infection History of CVA with residual deficit Expressive aphasia History of CVA (cerebrovascular accident) Refused influenza vaccine COVID-19 vaccination declined Impaired fasting glucose Dyslipidemia Osteoporosis Psoriasis Gestational diabetes Hx of uterine prolapse Osteoarthritis of knees, bilateral Bipolar 1 disorder CKD (chronic kidney disease) stage 2, GFR 60-89 ml/min Essential hypertension Rectocele Urge incontinence Elevated blood pressure reading in office with diagnosis of hypertension Hypotonic bladder Urinary tract infection Dyspareunia in female Surgical History History of partial mastectomy of left breast History of bilateral oophorectomy H/O mastectomy Hx of cholecystectomy History of total left knee replacement (TKR) History of total right knee replacement (TKR) History of Maloney urethropexy Hx of total vaginal hysterectomy H/O rectocele repair Family History Father Diabetes mellitus CHF (congestive heart failure) Mother FH: stomach cancer Crohn disease Son Mental health disorder Social History Household Members: Children Housing: Apartment Do you presently have visiting nurse or other home services: Yes Patient Tobacco Use Status: Current someday Tobacco user Cigarette Packs Per Day: 0.1 Cigarettes Per Day: 2 Years Smoked: 40 e-Cigarette/Vaping Use: Never Used Second Hand Smoke Exposure: No service: No Current occupational status: disabled Cognitive needs: No Hearing needs: No Vision needs: No Questionnaire Thrive Questionnaire Date Thrive assessed: 05/27/23 JOSE-7 AMB Questionnaire JOSE-7 Date JOSE - 7 assessed: 05/27/23 Source: Developed by Drs. Ziggy Martino, Mesha Frye, Eben Dacosta and colleagues, with an educational susie from [employer]. Review of Systems Const Details: Const Denies chills, Denies fatigue, Denies fever(s), Denies headache(s) and Denies weakness ENT Denies dizziness and Denies headache(s) Card Denies chest pain, Denies lightheadedness, Denies dyspnea and Denies other (Palpitations) Resp Denies cough, Denies dyspnea, Denies wheezing and Denies other ( shortness of breath) GI Denies abdominal pain, Denies melena, Denies hematochezia, Denies change in bowel habits, Denies dyspepsia and Denies nausea Denies hematuria and Denies dysuria Musc Denies abnormal gait, Denies myalgias, Denies arthralgias, Denies numbness and Denies tingling Skin/Breast Denies rash, Denies unusual bruising and Denies wounds Neuro Denies abnormal gait, Denies dizziness, Denies headache(s), Denies memory loss, Denies numbness, Denies Sensory deficit (Neuro), Denies tingling and Denies weakness Psych Denies anxiety, Denies depression, Denies memory loss Endo Denies cold intolerance, Denies fatigue, Denies heat intolerance, Denies polydipsia and Denies polyuria Aller/Immun Denies wheezing Physical exam (Primary Care) Vital Signs: Last Vital Signs Temp 97.5 F 08/23/23 10:15 Pulse 93 08/23/23 10:15 Resp 15 08/23/23 10:15 BP 136/70 08/23/23 10:15 Pulse Ox 99 08/23/23 10:15 Oxygen Delivery Method Room Air 08/23/23 10:15 BMI result Body Mass Index 33.9 Tobacco/Smoking Status: Tobacco use Status Tobacco use date assessed 05/27/23 08/23/23 10:25 Patient Tobacco Use Status Current someday Tobacco 08/23/23 10:25 e-Cigarette/Vaping Use Never Used 08/23/23 10:25 Thrive Assessment: Date of Thrive Assessment Date Thrive assessed 05/27/23 08/23/23 10:25 Const Other: General: no acute distress and well developed Nutritional Appearance: well nourished Orientation/consciousness: patient oriented x3 HENMT Head: Yes normocephalic and Yes atraumatic Eyes General: appearance normal, both eyes and all related structures Pupils: Equal, round and reactive pupils present EOM: EOMs intact bilaterally Resp Effort & Inspection: normal respiratory effort Auscultation: clear to auscultation bilaterally Cardio Rate: regular rate Rhythm: regular rhythm Heart sounds: S1 normal heart sound present, S2 normal heart sound present, no gallops, no murmurs and no rubs GI Palpation (GI): No Abdominal aortic bruit present, Soft to palpation, nontender, No hepatosplenomegaly present and No Rebound tenderness present Auscultation: normal bowel sounds General: Yes no CVA tenderness Back/Spine/Pelvis Back: no CVA tenderness Cervical Spine: cervical ROM normal and No Cervical spine tenderness Thoracic/Lumbar Spine: thoraco-lumbar ROM normal, No pain with thoraco-lumbar ROM, No thoracic spinal tenderness and No lumbar spinal tenderness Extrem General: Yes normal to inspection, No edema and No calf tenderness Skin General: warm and dry. Normal skin color. Normal skin turgor Neuro General: patient oriented x3, gait normal and no focal neuro deficit Cranial nerves: Yes Equal, round and reactive pupils present Cognition (Neuro): normal cognition Gait exam (Neuro): Normal gait present Sensory Exam: No Sensory deficit (Neuro) Psych Appearance: grossly normal Affect: normal affect Attitude: cooperative Thought process: Normal thought process present Assessment and Plan Assessment & Plan (1) Hypertension: Code(s): I10 - Essential (primary) hypertension Qualifiers: Hypertension type: primary hypertension Qualified Code(s): I10 - Essential (primary) hypertension Plan: Resting blood pressure is controlled, 130/80 Continue current treatment regimen Low-sodium diet encouraged Follow-up in 3 months or sooner with symptoms or concerns Verbalized understanding and agreed with the treatment plan (2) Dyslipidemia: Code(s): E78.5 - Hyperlipidemia, unspecified Plan: Lipid panel blood work was not done as planned for this visit Previous lipid panel level was normal Continue current treatment regimen Encouraged to get fasting lipid panel blood work done before her next visit Verbalized understanding and agreed with the plan (3) Osteoporosis: Code(s): M81.0 - Age-related osteoporosis without current pathological fracture Plan: Recent DEXA scan and mammogram reviewed with the patient Cholecalciferol 75 mcg daily ordered. Advised to take as prescribed. Instructed on the risks, benefits, and potential adverse reactions of the medication Advised to follow-up with endocrinology as planned Verbalized understanding and agreed with the treatment plan Medications: New cholecalciferol (vitamin D3) 75 mcg PO DAILY 90 days 90 tabs 4RF Coding Level of Care Code Est Pt Level 4 (39060) Complex EM visit Add On G2211 Diagnoses Primary hypertension I10 Hypertension type: primary hypertension Dyslipidemia E78.5 Osteoporosis M81.0
[2023-08-23 10:15] VITALS: BP 136/70; PULSE 93; RESP 15; TEMP 36.4; O2SAT 99; BMI 33.9
[2023-08-23 10:53] VITALS: BP 130/80; PULSE 60
== END 2023-08-23 11:06 | disposition home or self-care (01) ==
PROVIDERS: PCP Nurse Practitioner Family; Visit Provider Nurse Practitioner Family
DX: I10 Essential (primary) hypertension (principal); E78.5 Hyperlipidemia, unspecified; M81.0 Age-related osteoporosis without current pathological fracture
CPT/HCPCS: 99214; G2211

== ENCOUNTER 2023-09-28 12:10 | Outpatient (AMB) | payer OTHER, SELFPAY ==
--- NOTE | 2023-09-28 12:27 | MHC.OFFVIS ---
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: No Information Interpreted: non-clinical & clinical Compensation And Hris Analyst: Compensation And Hris Analyst Present (Nguyen Magallanes DERRICK) Accompanied by: Self / Same As Patient Allergies acetaminophen [Vicodin] Allergy (Unknown, Verified 09/28/23 12:32) tongue swells, hives on bottom of feet adhesive tape [Adhesive Tape] Allergy (Unknown, Verified 09/28/23 12:32) Rash hydrocodone [Vicodin] Allergy (Unknown, Verified 09/28/23 12:32) tongue swells, hives on bottom of feet latex [Latex] Allergy (Unknown, Verified 09/28/23 12:32) Rash, red blisters penicillin V Allergy (Unknown, Verified 09/28/23 12:32) hives, rash Penicillins Allergy (Unknown, Verified 09/28/23 12:32) Rash, Nausea and Vomiting Sulfa (Sulfonamide Antibiotics) Allergy (Unknown, Verified 09/28/23 12:32) Hives, rash amphetamine [Adderall] Adverse Reaction (Unknown, Verified 09/28/23 12:32) diarrhea dextroamphetamine [Adderall] Adverse Reaction (Unknown, Verified 09/28/23 12:32) diarrhea morphine [MORPHINE] Adverse Reaction (Unknown, Verified 09/28/23 12:32) Nausea and Vomiting phenobarbital [Phenobarbital] Adverse Reaction (Unknown, Verified 09/28/23 12:32) extreme hyperactivity meperidine [From Demerol] Adverse Reaction (Verified 09/28/23 12:32) Vomiting Post menopausal: Yes HPI Comments Details: Presenting for annual exam. No complaints. Last Pap was in 06/06, the patient is status post TVH, no history of abnormal Pap smears Last Mammogram was BI-RADS 2 in 07/21 Last Colonoscopy was more than 10 years ago Last DEXA scan was in 07/21 T-score of-3.2, the patient has been under the care of endocrinology regarding her osteoporosis and has a follow-up appointment with Dr. Ledezma in endocrinology regarding osteoporosis [facility] Medical History FH: cholecystectomy Hypersomnia Snoring Expressive aphasia Dysgraphia Stroke Multiple allergies Cholelithiasis Overactive bladder Recurrent urinary tract infection History of CVA with residual deficit Expressive aphasia History of CVA (cerebrovascular accident) Refused influenza vaccine COVID-19 vaccination declined Impaired fasting glucose Dyslipidemia Osteoporosis Psoriasis Gestational diabetes Hx of uterine prolapse Osteoarthritis of knees, bilateral Bipolar 1 disorder CKD (chronic kidney disease) stage 2, GFR 60-89 ml/min Essential hypertension Rectocele Urge incontinence Elevated blood pressure reading in office with diagnosis of hypertension Hypotonic bladder Urinary tract infection Dyspareunia in female Surgical History History of partial mastectomy of left breast History of bilateral oophorectomy H/O mastectomy Hx of cholecystectomy History of total left knee replacement (TKR) History of total right knee replacement (TKR) History of Maloney urethropexy Hx of total vaginal hysterectomy H/O rectocele repair Family History Father Diabetes mellitus CHF (congestive heart failure) Mother FH: stomach cancer Crohn disease Son Mental health disorder Social History Household Members: Children Housing: Apartment Do you presently have visiting nurse or other home services: Yes Alcohol intake: never Patient Tobacco Use Status: Current someday Tobacco user Cigarette Packs Per Day: 0.1 Cigarettes Per Day: 6 Years Smoked: 40 e-Cigarette/Vaping Use: Never Used Second Hand Smoke Exposure: No service: No Current occupational status: disabled Sexually active: No Sexual orientation: Straight/Heterosexual Gender identity: Female Cognitive needs: No Hearing needs: No Vision needs: No Female Reproductive History Menstrual Total pregnancies: 3 Full term: 1 Number of Living Children: 1 Ab induced: 2 Date of last pap smear: 06/25/08 Date of Mammogram: 07/26/23 Date of last Bone Density Screenin07/26/23 Review of Systems Const All systems reviewed & are unremarkable except as noted in HPI and below Card Reports as per HPI and Reports no additional complaints Resp Reports as per HPI and Reports no additional complaints GI Reports as per HPI and Reports no additional complaints Reports as per HPI Physical Exam Vital Signs: Last Vital Signs BP 130/70 09/28/23 12:29 BMI result Body Mass Index 26.1 Const General: cooperative, healthy appearing and comfortable General: Yes bladder normal to palpation External Female Exam: No lesion Speculum Exam - Vagina: normal vaginal discharge, not erythematous and other (Erosion of the posterior vaginal mesh at the introitus) Speculum Exam - Cervix: Cervix absent Bimanual exam- vagina & uterus: bladder normal to palpation and uterus absent Bimanual Exam- Adnexa, other: Other (No masses detected) Assessment & Plan Assessment & Plan (1) Well woman exam: Code(s): Z01.419 - Encounter for gynecological examination (general) (routine) without abnormal findings Category: Medical Plan: Co testing not indicated since the patient 's age is above 65 with no history of abnormal Pap smears last 25 years. Counseled the patient about the recommended dietary allowance of 1200 mg of Calcium & 800 IU of vitamin D. Instructions given the patient to schedule next screen Mammogram in 07/22. Will refer to GI for screening colonoscopy The patient was instructed to perform monthly self-breast exams and to schedule an annual exam in a year; All questions answered and the patient verbalized understanding. (2) Erosion of vaginal mesh: Code(s): T83.711A - Erosion of implanted vaginal mesh to surrounding organ or tissue, initial encounter Category: Medical Plan: Discussed with the patient the finding on physical exam showing erosion of the posterior vaginal wall mesh at the introitus from her posterior repair done in 2014, will refer to Urogynecology for further management. All questions answered, the patient verbalized understanding Orders: Referrals Urogynecology Referral T83.711A - Erosion of implanted vaginal mesh to surrounding organ or tissue, initial encounter Gastroenterology Referral Z12.11 - Encounter for screening for malignant neoplasm of colon Coding Level of Care Code New Pt Prev Care >65yr (62781) Diagnoses Well woman exam Z01.419 Erosion of vaginal mesh T83.711A
[2023-09-28 12:29] VITALS: BP 130/70; BMI 26.1
== END 2023-09-28 13:00 | disposition home or self-care (01) ==
PROVIDERS: PCP Nurse Practitioner Family; Visit Provider Obstetrics & Gynecology
DX: Z01.419 Encounter for gynecological examination (general) (routine) without abnormal findings (principal); T83.711A Erosion of implanted vaginal mesh to surrounding organ or tissue, initial encounter
CPT/HCPCS: 99387

== ENCOUNTER → 2023-09-28 12:10 | Outpatient (BNVA) | payer OTHER, SELFPAY | PROVIDERS: PCP Nurse Practitioner Family; Visit Provider Obstetrics & Gynecology ==

== ENCOUNTER 2023-09-28 13:06 | Outpatient (REF) | payer OTHER, SELFPAY ==
[2023-09-28 14:16] LABS: Albumin Level 4.6 g/dL (3.5-5.0); Calcium 10.3 mg/dL (8.4-10.2)
[2023-09-28 14:18] LABS: Parathyroid Hormone Intact 70.2 pg/mL (8.7-77.1)
[2023-09-28 14:31] LABS: Vitamin D 25-OH Total 60.9 ng/mL (>30)
== END 2023-09-28 13:07 | disposition home or self-care (01) ==
LOC: HO.LAB 13:06
PROVIDERS: PCP Nurse Practitioner Family; Referring Provider Nurse Practitioner Family; Visit Provider Internal Medicine Endocrinology, Diabetes & Metabolism
DX: M81.0 Age-related osteoporosis without current pathological fracture (principal)
CPT/HCPCS: 36415; 82040; 82306; 82310; 83970

== ENCOUNTER 2023-10-10 14:10 | Outpatient (AMB) | payer OTHER, SELFPAY ==
[2023-10-10 14:12] VITALS: BP 132/76; PULSE 78; BMI 34.2
--- NOTE | 2023-10-10 14:12 | A.OFFVIS_ITS ---
Vital Signs 10/10/23 14:12 Height 5 ft 4 in Weight 199 lb 8.293 oz BMI 34.2 BP 132/76 Blood Pressure Location Rt brachial Position Sitting Pulse 78 Pulse Source Pulse Oximeter Intake Visit Reasons: f/u osteoporosis-confirmed Intake Note: Patient present today for Osteoporosis follow up visit. 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 Accompanied by: Self / Same As Patient Allergies acetaminophen [Vicodin] Allergy (Unknown, Verified 10/10/23 14:25) tongue swells, hives on bottom of feet adhesive tape [Adhesive Tape] Allergy (Unknown, Verified 10/10/23 14:25) Rash hydrocodone [Vicodin] Allergy (Unknown, Verified 10/10/23 14:25) tongue swells, hives on bottom of feet latex [Latex] Allergy (Unknown, Verified 10/10/23 14:25) Rash, red blisters penicillin V Allergy (Unknown, Verified 10/10/23 14:25) hives, rash Penicillins Allergy (Unknown, Verified 10/10/23 14:25) Rash, Nausea and Vomiting Sulfa (Sulfonamide Antibiotics) Allergy (Unknown, Verified 10/10/23 14:25) Hives, rash amphetamine [Adderall] Adverse Reaction (Unknown, Verified 10/10/23 14:25) diarrhea dextroamphetamine [Adderall] Adverse Reaction (Unknown, Verified 10/10/23 14:25) diarrhea morphine [MORPHINE] Adverse Reaction (Unknown, Verified 10/10/23 14:25) Nausea and Vomiting phenobarbital [Phenobarbital] Adverse Reaction (Unknown, Verified 10/10/23 14:25) extreme hyperactivity meperidine [From Demerol] Adverse Reaction (Verified 10/10/23 14:25) Vomiting Medication List - Last Reconciled 10/10/23 by Ziggy Ledezma MD amlodipine 5 mg PO DAILY ascorbic acid (vitamin C) 1,000 mg PO DAILY 90 days aspirin 81 mg PO DAILY atorvastatin 80 mg PO BEDTIME 30 days cholecalciferol (vitamin D3) 25 mcg PO DAILY 3 months estradiol 0.01%(0.1mg/gram) vaginally 3 times a week; pea sized amount to urethra 3 times a week 30 days lisinopril 20 mg PO DAILY methenamine hippurate 1 g PO daily 90 days metoprolol succinate ER 100 mg PO DAILY 90 days miscellaneous medical supply 2 pair of support stockings miscellaneous medical supply as directed; contours incontinent pad maximum 28 per pack 1 month quetiapine ER 100 mg (2 x 50 mg) PO BEDTIME 30 days sennosides (senna) 8.6 mg PO BEDTIME 90 days tolterodine ER 4 mg PO DAILY 90 days zolpidem 5 mg PO BEDTIME 30 days HPI Comments Details: 67 YO Female with PMHx CKD stage 2 is seen in consultation at the request of PCP for Osteoporosis. First diagnosed in recently . Received treatment in the past with [facility] ,for 1 yr still on . Tolerated aleksandra atment well without complication. No history of pathologic fracture or ONJ. Has severla servings of dietary calcium per day in the form of daily. Not Takes Calcium supplement Takes ? IU of Vitamin D daily in MVI . Denies ever using PPI, anticoagulant, antiepileptic or glucocorticoid medication. Does weight bearing exercise 7 days per week in the form of walking . 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 Has false teeth No planned upcoming dental work or extractions. DXA dated 07/07/21 :FINDINGS: AP SPINE L1-L4: Current: BMD 1.011 g/cm2, Z-score -0.7, T-score -1.4, osteopenia, 4.1% increase from previous, 1.9% increase from baseline (<5% change is not significant). Prior: BMD 0.971 g/cm2. Baseline: BMD 0.992 g/cm2. LEFT FEMUR, NECK: Current: BMD 0.691 g/cm2, Z-score -1.6, T-score -2.5, osteoporosis. Prior: BMD 0.631 g/cm2. Baseline: BMD 0.643 g/cm2. LEFT FEMUR, TOTAL: Current: BMD 0.679 g/cm2, Z-score -2.1, T-score -2.6, osteoporosis, 13.7% increase from previous, 2.0% increase from baseline (<5% change is not significant). Prior: BMD 0.597 g/cm2. Baseline: BMD 0.666 g/cm2. IDENTIFIED RISK FACTORS: Early menopause, secondary osteoporosis, osteoporosis, renal, tobacco use (current smoker), hysterectomy. HISTORY OF FRACTURE: None listed. MEDICATIONS: Calcium or multivitamin. MM/XR DEXA axial skeleton IMPRESSION: 1. DIAGNOSIS: Osteoporosis based on the lowest T-score value of -2.6 in the total femur applying World Health Organization criteria.? ? Labs: No fx since last visit . Repat dexa showed substantial decreases in bone density FINDINGS: LEFT FEMUR, NECK: Current: BMD 0.647 g/cm2, Z-score -1.7, T-score -2.8, osteoporosis. Prior: BMD 0.691 g/cm2. Baseline: BMD 0.643 g/cm2. LEFT FEMUR, TOTAL: Current: BMD 0.599 g/cm2, Z-score -2.4, T-score -3.2, osteoporosis, 11.8% decrease from previous, 10.1% decrease from baseline (<5% change is not significant). Prior: BMD 0.679 g/cm2. Baseline: BMD 0.666 g/cm2. AP SPINE L1-L4: Current: BMD 0.858 g/cm2, Z-score -1.7, T-score -2.7, osteoporosis, 15.1% decrease from previous, 13.5% decrease from baseline (<5% change is not significant). Prior: BMD 1.011 g/cm2. Baseline: BMD 0.992 g/cm2. [facility] Medical History FH: cholecystectomy Hypersomnia Snoring Expressive aphasia Dysgraphia Stroke Multiple allergies Cholelithiasis Overactive bladder Recurrent urinary tract infection History of CVA with residual deficit Expressive aphasia History of CVA (cerebrovascular accident) Refused influenza vaccine COVID-19 vaccination declined Impaired fasting glucose Dyslipidemia Osteoporosis Psoriasis Gestational diabetes Hx of uterine prolapse Osteoarthritis of knees, bilateral Bipolar 1 disorder CKD (chronic kidney disease) stage 2, GFR 60-89 ml/min Essential hypertension Rectocele Urge incontinence Elevated blood pressure reading in office with diagnosis of hypertension Hypotonic bladder Urinary tract infection Dyspareunia in female Surgical History History of partial mastectomy of left breast History of bilateral oophorectomy H/O mastectomy Hx of cholecystectomy History of total left knee replacement (TKR) History of total right knee replacement (TKR) History of Maloney urethropexy Hx of total vaginal hysterectomy H/O rectocele repair Family History Father Diabetes mellitus CHF (congestive heart failure) Mother FH: stomach cancer Crohn disease Son Mental health disorder Social History Household Members: Children Housing: Apartment Do you presently have visiting nurse or other home services: Yes Alcohol intake: never Patient Tobacco Use Status: Current someday Tobacco user Cigarette Packs Per Day: 0.1 Cigarettes Per Day: 6 Years Smoked: 40 e-Cigarette/Vaping Use: Never Used Second Hand Smoke Exposure: No service: No Current occupational status: disabled Sexual orientation: Straight/Heterosexual Gender identity: Female Cognitive needs: No Hearing needs: No Vision needs: No Physical Exam Vital Signs: Last Vital Signs Pulse 78 10/10/23 14:12 BP 132/76 10/10/23 14:12 BMI result Body Mass Index 34.2 Assessment & Plan Assessment & Plan (1) Osteoporosis: Code(s): M81.0 - Age-related osteoporosis without current pathological fracture Category: Medical Plan: This 67-year-old white female with a history of osteoporosis with partial secondary workup in the setting of CKD stage 3 b. recent DEXA showed decreases in bone density but normalization of PTH and vitamin-D as well as corrected calcium Plan is to discussed with patient use of pharmacologic therapy . After careful conversation with the patient considering a history of CVA the past 2 years as well as decreased renal function, we came to the conclusion Prolia would be the best alternative and will start Prolia 60 mg q.6 months. Should continue with the calcium and vitamin-D supplementation Coding Level of Care Code Est Pt Level 3 (22577) Diagnoses Osteoporosis M81.0
== END 2023-10-10 14:54 | disposition home or self-care (01) ==
PROVIDERS: PCP Nurse Practitioner Family; Visit Provider Internal Medicine Endocrinology, Diabetes & Metabolism
DX: M81.0 Age-related osteoporosis without current pathological fracture (principal)
CPT/HCPCS: 99213

== ENCOUNTER → 2023-10-10 14:10 | Outpatient (BNVA) | payer OTHER, SELFPAY | PROVIDERS: PCP Nurse Practitioner Family; Visit Provider Internal Medicine Endocrinology, Diabetes & Metabolism | DX: M81.0 Age-related osteoporosis without current pathological fracture (principal) | CPT/HCPCS: 99212 ==

== ENCOUNTER 2023-10-26 13:01 | Outpatient (AMB) | payer OTHER, SELFPAY ==
--- NOTE | 2023-10-26 13:36 | AM.OFFVISNUR ---
Intake Visit Reasons: Prolia #1 Allergies acetaminophen [Vicodin] Allergy (Unknown, Verified 10/10/23 14:25) tongue swells, hives on bottom of feet adhesive tape [Adhesive Tape] Allergy (Unknown, Verified 10/10/23 14:25) Rash hydrocodone [Vicodin] Allergy (Unknown, Verified 10/10/23 14:25) tongue swells, hives on bottom of feet latex [Latex] Allergy (Unknown, Verified 10/10/23 14:25) Rash, red blisters penicillin V Allergy (Unknown, Verified 10/10/23 14:25) hives, rash Penicillins Allergy (Unknown, Verified 10/10/23 14:25) Rash, Nausea and Vomiting Sulfa (Sulfonamide Antibiotics) Allergy (Unknown, Verified 10/10/23 14:25) Hives, rash amphetamine [Adderall] Adverse Reaction (Unknown, Verified 10/10/23 14:25) diarrhea dextroamphetamine [Adderall] Adverse Reaction (Unknown, Verified 10/10/23 14:25) diarrhea morphine [MORPHINE] Adverse Reaction (Unknown, Verified 10/10/23 14:25) Nausea and Vomiting phenobarbital [Phenobarbital] Adverse Reaction (Unknown, Verified 10/10/23 14:25) extreme hyperactivity meperidine [From Demerol] Adverse Reaction (Verified 10/10/23 14:25) Vomiting Office Meds Prolia 60 mg/mL subcutaneous syringe Performing Provider: Ziggy Ledezma MD Performing Location: [facility] [place] Endocrinology Administered by: Yoanna Valdez RN on 10/26/23 13:36 Dose Route Admin Location Dispensed Lot Number Expiration Date [facility] Administrative Underwriter 60 mg subcut right upper arm 1 mL [id number] 01/27/26 91079-112-95 [facility] Comments: Consent form signed. Pt tolerated injection well. This was given in her right arm d/t mastectomy on left side. Pt advised to watch area for site reaction and to call with any increased redness, warmth or swelling. Pt observed for 15 minutes following injection without incident. Assessment & Plan Assessment & Plan Orders: Orders AMB Denosumab Injection Practice Supplied Today M81.0 - Age-related osteoporosis without current pathological fracture Medications: New Prolia (denosumab) 60 mg subcut ONCE 1 mL 0RF NS M81.0 - Age-related osteoporosis without current pathological fracture
== END 2023-10-26 13:55 | disposition home or self-care (01) ==
PROVIDERS: PCP Nurse Practitioner Family
DX: M81.0 Age-related osteoporosis without current pathological fracture (principal)

== ENCOUNTER → 2023-10-26 13:01 | Outpatient (BNVA) | payer OTHER, SELFPAY | PROVIDERS: PCP Nurse Practitioner Family | DX: M81.0 Age-related osteoporosis without current pathological fracture (principal) | CPT/HCPCS: 96372; J0897 ==

== ENCOUNTER 2023-11-23 09:55 | Outpatient (REF) | payer OTHER, SELFPAY ==
[2023-11-23 11:20] LABS: Appearance Urine Clear; Color Urine Yellow; Glucose Urine UA Negative (Negative); Leukocyte Esterase Urine Negative (Negative); Nitrite Urine Negative (Negative); PH 6.5 (5.0-9.0); Urine Blood Negative (Negative); Urine Ketones Negative (Negative); Urine Protein Negative (Neg-Trace)
[2023-11-23 11:57] LABS: Calcium 9.4 mg/dL (8.4-10.2)
[2023-11-23 12:06] LABS: Anion Gap 15 (12-20); Blood Urea Nitrogen 13 mg/dL (9-16); Calcium 9.2 mg/dL (8.4-10.2); Carbon Dioxide 27 mmol/L (22-29); Chloride 109 mmol/L (96-108); Cholesterol 130 mg/dL (<200); Estimated Glomerular Filt Rate > 60; Glucose Random 102 mg/dL (60-115); HDL Cholesterol 43 mg/dL (>40); LDL Cholesterol Calculated 63 mg/dL (<100); Potassium 4.1 mmol/L (3.3-5.1); Sodium 147 mmol/L (135-145); Triglycerides 122 mg/dL (<150)
[2023-11-23 12:13] LABS: Parathyroid Hormone Intact 147.5 pg/mL (8.7-77.1)
== END 2023-11-23 09:56 | disposition home or self-care (01) ==
LOC: HO.WFDLDS 09:55
PROVIDERS: Nurse Practitioner Family; Referring Provider Internal Medicine Endocrinology, Diabetes & Metabolism; Visit Provider Nurse Practitioner Family
DX: M81.0 Age-related osteoporosis without current pathological fracture (principal); R35.0 Frequency of micturition; E78.5 Hyperlipidemia, unspecified
CPT/HCPCS: 36415; 80048; 80061; 81003; 82310; 83970

== ENCOUNTER 2023-11-28 09:21 | Outpatient (REF) | payer OTHER, SELFPAY ==
[2023-11-28 12:22] LABS: Anion Gap 14 (12-20); Blood Urea Nitrogen 13 mg/dL (9-16); Calcium 9.1 mg/dL (8.4-10.2); Carbon Dioxide 23 mmol/L (22-29); Chloride 111 mmol/L (96-108); Estimated Glomerular Filt Rate > 60; Glucose Random 110 mg/dL (60-115); Sodium 144 mmol/L (135-145)
[2023-11-28 12:30] LABS: Parathyroid Hormone Intact 176.1 pg/mL (8.7-77.1)
[2023-11-28 12:31] LABS: Osmolality, Serum 300 mosm/kg (281-305)
== END 2023-11-28 09:22 | disposition home or self-care (01) ==
LOC: HO.WFDLDS 09:21
PROVIDERS: Nurse Practitioner Family; Visit Provider Student in an Organized Health Care Education/Training Program
DX: R35.0 Frequency of micturition (principal)
CPT/HCPCS: 36415; 80048; 83930; 83970

== ENCOUNTER 2023-11-30 12:49 | Outpatient (AMB) | payer OTHER, SELFPAY ==
--- NOTE | 2023-11-30 12:51 | A.OFFPC_ITS ---
Vital Signs 11/30/23 13:00 11/30/23 13:20 Height 5 ft 4 in Weight 201 lb BMI 34.5 BP 134/64 120/72 Blood Pressure Location Rt brachial Rt brachial Position Sitting Sitting Respiration 16 Pulse 86 Pulse Source Pulse Oximeter Temp 97.9 F Temp Source Oral Pulse Oximetry (%) 97 Oxygen Delivery Method Room Air Intake Visit Reasons: 3 month htn Intake Note: patient here for 3 month follow up on HTN. Gold Beater Required: No Is last menstrual period known: No Post menopausal: No Patient : No Allergies acetaminophen [Vicodin] Allergy (Unknown, Verified 11/30/23 12:55) tongue swells, hives on bottom of feet adhesive tape [Adhesive Tape] Allergy (Unknown, Verified 11/30/23 12:55) Rash hydrocodone [Vicodin] Allergy (Unknown, Verified 11/30/23 12:55) tongue swells, hives on bottom of feet latex [Latex] Allergy (Unknown, Verified 11/30/23 12:55) Rash, red blisters penicillin V Allergy (Unknown, Verified 11/30/23 12:55) hives, rash Penicillins Allergy (Unknown, Verified 11/30/23 12:55) Rash, Nausea and Vomiting Sulfa (Sulfonamide Antibiotics) Allergy (Unknown, Verified 11/30/23 12:55) Hives, rash amphetamine [Adderall] Adverse Reaction (Unknown, Verified 11/30/23 12:55) diarrhea dextroamphetamine [Adderall] Adverse Reaction (Unknown, Verified 11/30/23 12:55) diarrhea morphine [MORPHINE] Adverse Reaction (Unknown, Verified 11/30/23 12:55) Nausea and Vomiting phenobarbital [Phenobarbital] Adverse Reaction (Unknown, Verified 11/30/23 12:55) extreme hyperactivity meperidine [From Demerol] Adverse Reaction (Verified 11/30/23 12:55) Vomiting Tobacco use date assessed: 11/30/23 Fall risk assessment: No Falls in past year Last assessed Fall Risk: 11/30/23 Dental Screening Dental Screen Date: 11/30/23 Did you have a dental visit in the last 12 months?: No Did you have a dental problem in the last 6 months where you did not have access to dental care?: No Was dental information given to patient?: Patient declined HPI HPI Comments History of Present Illness Details 68-year-old female presents for hyperten kurtis and dyslipidemia follow-up She admits to taking her medications as prescribed without adverse reactions She notes that she has been making healthy lifestyle changes, including healthy diet and exercise She offers no complaints and denies acute symptoms at this time [facility] Medical History FH: cholecystectomy Hypersomnia Snoring Expressive aphasia Dysgraphia Stroke Multiple allergies Cholelithiasis Overactive bladder Recurrent urinary tract infection History of CVA with residual deficit Expressive aphasia History of CVA (cerebrovascular accident) Refused influenza vaccine COVID-19 vaccination declined Impaired fasting glucose Dyslipidemia Osteoporosis Psoriasis Gestational diabetes Hx of uterine prolapse Osteoarthritis of knees, bilateral Bipolar 1 disorder CKD (chronic kidney disease) stage 2, GFR 60-89 ml/min Essential hypertension Rectocele Urge incontinence Elevated blood pressure reading in office with diagnosis of hypertension Hypotonic bladder Urinary tract infection Dyspareunia in female Surgical History History of partial mastectomy of left breast History of bilateral oophorectomy H/O mastectomy Hx of cholecystectomy History of total left knee replacement (TKR) History of total right knee replacement (TKR) History of Maloney urethropexy Hx of total vaginal hysterectomy H/O rectocele repair Family History Father Diabetes mellitus CHF (congestive heart failure) Mother FH: stomach cancer Crohn disease Son Mental health disorder Social History Household Members: Children Housing: Apartment Do you presently have visiting nurse or other home services: Yes Alcohol intake: never Patient Tobacco Use Status: Current someday Tobacco user Cigarette Packs Per Day: 0.1 Cigarettes Per Day: 6 Years Smoked: 40 e-Cigarette/Vaping Use: Never Used Second Hand Smoke Exposure: No service: No Current occupational status: disabled Sexual orientation: Straight/Heterosexual Gender identity: Female Cognitive needs: No Hearing needs: No Vision needs: No Questionnaire Thrive Questionnaire Date Thrive assessed: 05/27/23 JOSE-7 AMB Questionnaire JOSE-7 Date JOSE - 7 assessed: 05/27/23 Source: Developed by Drs. Ziggy Martino, Mesha Frye, Eben Dacosta and colleagues, with an educational susie from [employer]. Review of Systems Const Details: Const Denies chills, Denies fatigue, Denies fever(s), Denies headache(s) and Denies weakness ENT Denies dizziness and Denies headache(s) Card Denies chest pain, Denies lightheadedness, Denies dyspnea and Denies other (Palpitations) Resp Denies cough, Denies dyspnea, Denies wheezing and Denies other ( shortness of breath) GI Denies abdominal pain, Denies melena, Denies hematochezia, Denies change in bowel habits, Denies dyspepsia and Denies nausea Denies hematuria and Denies dysuria Musc Denies abnormal gait, Denies myalgias, Denies arthralgias, Denies numbness and Denies tingling Skin/Breast Denies rash, Denies unusual bruising and Denies wounds Neuro Denies abnormal gait, Denies dizziness, Denies headache(s), Denies memory loss, Denies numbness, Denies Sensory deficit (Neuro), Denies tingling and Denies weakness Endo Denies cold intolerance, Denies fatigue, Denies heat intolerance, Denies polydipsia and Denies polyuria Aller/Immun Denies wheezing Physical exam (Primary Care) Vital Signs: Last Vital Signs Temp 97.9 F 11/30/23 13:00 Pulse 86 11/30/23 13:00 Resp 16 11/30/23 13:00 BP 134/64 11/30/23 13:00 Pulse Ox 97 11/30/23 13:00 Oxygen Delivery Method Room Air 11/30/23 13:00 BMI result Body Mass Index 34.5 Tobacco/Smoking Status: Tobacco use Status Tobacco use date assessed 11/30/23 11/30/23 13:01 Patient Tobacco Use Status Current someday Tobacco 11/30/23 12:53 e-Cigarette/Vaping Use Never Used 11/30/23 12:53 Thrive Assessment: Date of Thrive Assessment Date Thrive assessed 05/27/23 11/30/23 12:53 Const Other: General: no acute distress and well developed Nutritional Appearance: well nourished Orientation/consciousness: patient oriented x3 HENMT Head: Yes normocephalic and Yes atraumatic Eyes General: appearance normal, both eyes and all related structures Pupils: Equal, round and reactive pupils present EOM: EOMs intact bilaterally Resp Effort & Inspection: normal respiratory effort Auscultation: clear to auscultation bilaterally Cardio Rate: regular rate Rhythm: regular rhythm Heart sounds: S1 normal heart sound present, S2 normal heart sound present, no gallops, no murmurs and no rubs GI Palpation (GI): No Abdominal aortic bruit present, Soft to palpation, nontender, No hepatosplenomegaly present and No Rebound tenderness present Auscultation: normal bowel sounds General: Yes no CVA tenderness Back/Spine/Pelvis Back: no CVA tenderness Extrem General: Yes normal to inspection, No edema and No calf tenderness Skin General: warm and dry. Normal skin color. Normal skin turgor Neuro General: patient oriented x3, gait normal and no focal neuro deficit Cranial nerves: Yes Equal, round and reactive pupils present Cognition (Neuro): normal cognition Gait exam (Neuro): Normal gait present Sensory Exam: No Sensory deficit (Neuro) Psych Appearance: grossly normal Affect: normal affect Attitude: cooperative Thought process: Normal thought process present Coding Level of Care Code Est Pt Level 3 (75425) Diagnoses Primary hypertension I10 Hypertension type: primary hypertension Dyslipidemia E78.5 Elevated PTHrP level R79.89 Assessment & Plan Assessment & Plan (1) Hypertension: Code(s): I10 - Essential (primary) hypertension Category: Medical Qualifiers: Hypertension type: primary hypertension Qualified Code(s): I10 - Essential (primary) hypertension Plan: Resting blood pressure is 120/72, within goal of less than 130/80 Continue current treatment regimen Low-sodium diet encouraged Follow-up in 3 months or sooner with worsening or new symptoms Verbalized understanding and agreed with the treatment plan (2) Dyslipidemia: Code(s): E78.5 - Hyperlipidemia, unspecified Category: Medical Plan: Recent triglycerides, total cholesterol, LDL, and HDL levels are normal, 122, 130, 63, and 43 respectively Continue current treatment regimen Will recheck lipid panel levels in 6 months Verbalized understanding and agreed with the plan (3) Elevated PTHrP level: Code(s): R79.89 - Other specified abnormal findings of blood chemistry Category: Medical Plan: She has history of elevated PTH Recent PTH levels are elevated, 147.5 and 176.1 Normal calcium and vitamin-D levels. No acute symptoms Followed by endocrinology for osteoporosis. 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
[2023-11-30 13:00] VITALS: BP 134/64; PULSE 86; RESP 16; TEMP 36.6; O2SAT 97; BMI 34.5
[2023-11-30 13:20] VITALS: BP 120/72
== END 2023-11-30 13:29 | disposition home or self-care (01) ==
PROVIDERS: PCP Nurse Practitioner Family; Visit Provider Nurse Practitioner Family
DX: I10 Essential (primary) hypertension (principal); E78.5 Hyperlipidemia, unspecified; R79.89 Other specified abnormal findings of blood chemistry

== ENCOUNTER → 2023-11-30 12:49 | Outpatient (BNVA) | payer OTHER, SELFPAY | PROVIDERS: PCP Nurse Practitioner Family; Visit Provider Nurse Practitioner Family | DX: I10 Essential (primary) hypertension (principal); E78.5 Hyperlipidemia, unspecified; R79.89 Other specified abnormal findings of blood chemistry | CPT/HCPCS: 99212 ==

== ENCOUNTER 2024-01-24 10:00 | Outpatient (REF) | payer OTHER, SELFPAY | END 2024-01-24 10:01 | disposition home or self-care (01) | LOC: HO.LNP 10:00 | PROVIDERS: PCP Nurse Practitioner Family; Visit Provider Nurse Practitioner Family | DX: R35.0 Frequency of micturition (principal); N39.0 Urinary tract infection, site not specified; N32.81 Overactive bladder; R33.9 Retention of urine, unspecified; R82.90 Unspecified abnormal findings in urine | CPT/HCPCS: 51798; 81003; 87086; 87088; 87186; 99212 ==

== ENCOUNTER 2024-01-24 10:00 | Outpatient (AMB) | payer OTHER, SELFPAY ==
--- NOTE | 2024-01-24 09:58 | MHC.OFFVIS ---
Intake Visit Reasons: 6m/PVR Intake Note: Patient presents today for follow up Recurrent UTI Urology Medications: Methenamine, Vitamin C, Estradiol Cream, Tolterodine Blood Thinner: Aspirin PVR: 110ml's Education Faculty Member Required: No Accompanied by: Self / Same As Patient Allergies acetaminophen [Vicodin] Allergy (Unknown, Verified 01/24/24 11:25) tongue swells, hives on bottom of feet adhesive tape [Adhesive Tape] Allergy (Unknown, Verified 01/24/24 11:25) Rash hydrocodone [Vicodin] Allergy (Unknown, Verified 01/24/24 11:25) tongue swells, hives on bottom of feet latex [Latex] Allergy (Unknown, Verified 01/24/24 11:25) Rash, red blisters penicillin V Allergy (Unknown, Verified 01/24/24 11:25) hives, rash Penicillins Allergy (Unknown, Verified 01/24/24 11:25) Rash, Nausea and Vomiting Sulfa (Sulfonamide Antibiotics) Allergy (Unknown, Verified 01/24/24 11:25) Hives, rash amphetamine [Adderall] Adverse Reaction (Unknown, Verified 01/24/24 11:25) diarrhea dextroamphetamine [Adderall] Adverse Reaction (Unknown, Verified 01/24/24 11:25) diarrhea morphine [MORPHINE] Adverse Reaction (Unknown, Verified 01/24/24 11:25) Nausea and Vomiting phenobarbital [Phenobarbital] Adverse Reaction (Unknown, Verified 01/24/24 11:25) extreme hyperactivity meperidine [From Demerol] Adverse Reaction (Verified 01/24/24 11:25) Vomiting Medication List - Last Reconciled 01/24/24 by GENEVA Redding amlodipine 5 mg PO DAILY ascorbic acid (vitamin C) 1,000 mg PO DAILY 90 days aspirin 81 mg PO DAILY 90 days atorvastatin 80 mg PO BEDTIME 30 days cholecalciferol (vitamin D3) 25 mcg PO DAILY 3 months estradiol 0.01%(0.1mg/gram) vaginally 3 times a week; pea sized amount to urethra 3 times a week 30 days lisinopril 20 mg PO DAILY 90 days methenamine hippurate 1 g PO daily 90 days metoprolol succinate ER 100 mg PO DAILY 90 days miscellaneous medical supply as directed; contours incontinent pad maximum 28 per pack 1 month miscellaneous medical supply 2 pair of support stockings quetiapine ER 100 mg (2 x 50 mg) PO BEDTIME 30 days sennosides (senna) 8.6 mg PO BEDTIME 90 days tolterodine ER 4 mg PO DAILY 90 days zolpidem 5 mg PO BEDTIME 30 days HPI Comments Details: Bev is a pleasant 68 year-old female patient of Dr. Silvestre. She has a past medical history of bipolar, CKD stage 2, dyslipidemia, hypertension, history of CVA with expressive aphasia, osteoarthritis, recurrent urinary tract infections, and overactive bladder. She presents to the office today for follow-up regarding her frequent urinary tract infections and overactive bladder. In discussion with the patient today she reports to be doing and feeling well. She reports compliance with Estrace cream, methenamine, vitamin-C, and tolterodine as prescribed. She currently denies any bothersome urinary issues or concerns. She denies any UTI like symptoms. In office urinalysis results reviewed with the patient today. 1+ leukocytes positive nitrates. PVR 110mL. After discussing UA results patient does report at times noting foul-smelling urine. She otherwise denies urinary urgency, urinary frequency, incontinence, nocturia, hematuria, dysuria, changes to urinary stream, flank pain, fever, and or chills. She is happy with her current voiding parameters. Patient with a previous history of following up with Infectious Disease due to ongoing E coli with resistance and colonization with intermittent infections therefore will await urine culture results for potential treatment. She otherwise offers other issues or concerns at this time. [facility] Medical History FH: cholecystectomy Hypersomnia Snoring Expressive aphasia Dysgraphia Stroke Multiple allergies Cholelithiasis Overactive bladder Recurrent urinary tract infection History of CVA with residual deficit Expressive aphasia History of CVA (cerebrovascular accident) Refused influenza vaccine COVID-19 vaccination declined Impaired fasting glucose Dyslipidemia Osteoporosis Psoriasis Gestational diabetes Hx of uterine prolapse Osteoarthritis of knees, bilateral Bipolar 1 disorder CKD (chronic kidney disease) stage 2, GFR 60-89 ml/min Essential hypertension Rectocele Urge incontinence Elevated blood pressure reading in office with diagnosis of hypertension Hypotonic bladder Urinary tract infection Dyspareunia in female Surgical History History of partial mastectomy of left breast History of bilateral oophorectomy H/O mastectomy Hx of cholecystectomy History of total left knee replacement (TKR) History of total right knee replacement (TKR) History of Maloney urethropexy Hx of total vaginal hysterectomy H/O rectocele repair Family History Father Diabetes mellitus CHF (congestive heart failure) Mother FH: stomach cancer Crohn disease Son Mental health disorder Social History Household Members: Children Housing: Apartment Do you presently have visiting nurse or other home services: Yes Alcohol intake: never Patient Tobacco Use Status: Current someday Tobacco user Cigarette Packs Per Day: 0.1 Cigarettes Per Day: 6 Years Smoked: 40 e-Cigarette/Vaping Use: Never Used Second Hand Smoke Exposure: No service: No Current occupational status: disabled Sexual orientation: Straight/Heterosexual Gender identity: Female Cognitive needs: No Hearing needs: No Vision needs: No Review of Systems Const Reports as per HPI Eyes Reports no additional complaints ENT Reports no additional complaints Card Reports no additional complaints Resp Reports no additional complaints GI Details: Reports as per HPI Reports as per HPI Musc Reports no additional complaints Skin/Breast Reports as per HPI Neuro Reports as per HPI Endo Reports no additional complaints Physical Exam Const General: cooperative, healthy appearing, comfortable, no acute distress, well developed, alert and awake Orientation/consciousness: patient oriented x3 Limitations: no limitations HEENT Head: Yes normal to inspection, Yes normocephalic and Yes atraumatic Ears: hearing grossly normal bilaterally Eyes General: appearance normal, both eyes and all related structures Neck Neck: Yes normal visual inspection and Yes trachea midline Chest Other: left sided chest dressing; clean dry and intact Resp Effort & Inspection: normal respiratory effort and able to speak in complete sentences Cardio Rate: regular rate GI Inspection: Yes normal to inspection General: Yes no CVA tenderness Back/Spine/Pelvis Back: no CVA tenderness Skin General skin exam: no rashes or lesions noted Neuro General: patient oriented x3 Extrem General: Yes normal to inspection Psych Appearance: grossly normal and well kempt Mental Status: mental status grossly normal Speech and movement: Normal speech and movement present and Clear speech present Affect: normal affect Attitude: cooperative Thought process: Normal thought process present Thought content: Normal thought content present Insight: Fair insight present (Psych) Judgement: Fair judgement present (Psych) Office Procedures Post Void Residual Post Residual Void Post Void Residual (PVR): 110 [id number] Void Residual by ultrasound Results AMB Urinalysis, Automated UA Leukoctes 15 Emiliano/uL Last Edit by Tressa Romeo on 01/24/24 10:19 UA Nitrite Last Edit by Tressa Romeo on 01/24/24 10:19 UA Urobilinogen 0.2 mg/dL Last Edit by [employer] on 01/24/24 10:19 UA Protein 15 mg/dL Last Edit by [employer] on 01/24/24 10:19 UA pH 6.0 Last Edit by [email or web address] on 01/24/24 10:19 UA Blood 10 Maximiliano/uL Last Edit by [employer] on 01/24/24 10:19 UA Specific [place] 1.020 Last Edit by [employer] on 01/24/24 10:19 UA Ketone Last Edit by [employer] on 01/24/24 10:19 UA Bilirubin 0 mg/dL Last Edit by [employer] on 01/24/24 10:19 UA Glucose 0 mg/dL Last Edit by [email or web address] on 01/24/24 10:19 Results Reviewed Results Reviewed: Laboratory Last Values Urine pH (Auto) 6.0 01/24/24 10:18 Specific [place] (Auto) 1.020 01/24/24 10:18 Urine Protein (Auto) 15 mg/dL 01/24/24 10:18 Glucose (UA)(Auto) 0 mg/dL 01/24/24 10:18 Urine Blood (Auto) 10 Maximiliano/uL 01/24/24 10:18 Urine Bilirubin (Auto) 0 mg/dL 01/24/24 10:18 Urine Urobilinogen (Auto) 0.2 mg/dL 01/24/24 10:18 Leukocyte Esterase (Auto) 15 Emiliano/uL 01/24/24 10:18 Assessment & Plan Assessment & Plan (1) UTI due to extended-spectrum beta lactamase (ESBL) producing Escherichia coli: Code(s): N39.0 - Urinary tract infection, site not specified; B96.29 - Other Escherichia coli [E. coli] as the cause of diseases classified elsewhere; Z16.12 - Extended spectrum beta lactamase (ESBL) resistance Category: Medical (2) Recurrent urinary tract infection: Code(s): N39.0 - Urinary tract infection, site not specified Category: Medical (3) Overactive bladder: Code(s): N32.81 - Overactive bladder Category: Medical (4) Incomplete bladder emptying: Code(s): R33.9 - Retention of urine, unspecified Category: Medical (5) Foul smelling urine: Code(s): R82.90 - Unspecified abnormal findings in urine Category: Medical Plan In office urinalysis results reviewed with the patient today; as noted above; will send for urine culture; will await results for potential treatment. PVR 110ml's. Discussed UTI prevention with D mannose supplement, vitamin-C, increasing fluid intake, behavioral therapy with timed voiding, perineal hygiene and postcoital voiding, and management of constipation with stool softeners and increased fiber intake. Continue methenamine, vitamin-C, Estrace, and tolterodine as prescribed. Patient currently denies any bothersome urinary issues or concerns however does note intermittent episodes of foul-smelling urine She reports be happy with current voiding parameters. Follow-up in 3 months with PVR; or sooner with any issues, concerns, and or questions. Orders: Orders AMB Urinalysis Automated Today Z13.9 - Encounter for screening, unspecified AMB Post Void Residual by ultrasound Today R35.0 - Frequency of micturition Urine Culture Today N39.0 - Urinary tract infection, site not specified Patient Instructions: The patient had an opportunity to ask questions regarding the treatment plan. All questions were answered. Physical exam, labs, and imaging were discussed and reviewed in detail. As well as risks, benefits, and discussion of treatment choices. No major barriers to understanding were identified. The patient expressed understanding and agreement with the above treatment plan. The patient was made aware they should contact our office by phone for worsening of their current condition, the appearance of new symptoms, or with any questions or concerns. Compliance is encouraged with any medications and follow up testing that is ordered. It is a privilege to be allowed the opportunity to participate in? your urological care.? Again, if you have any questions or concerns If you have any questions or concerns please do not hesitate to contact me. The office is [phone]. This note is constructed using voice recognition software. While every effort has been made to ensure accuracy controls technician errors may have been included. Yours sincerely, ROGER Redding-BC Coding Level of Care Code Est Pt Level 4 (52130) Complex EM visit Add On G2211 Diagnoses UTI due to extended-spectrum beta lactamase (ESBL) producing Escherichia coli N39.0; B96.29; Z16.12 Recurrent urinary tract infection N39.0 Overactive bladder N32.81 Incomplete bladder emptying R33.9 Foul smelling urine R82.90 CPT Codes Post Residual Void - PVR CPT Code: 98939-Agki Void Residual by ultrasound ([id number])
--- OUTSIDE RECORDS SUMMARY | 2024-01-24 10:01 | XMS_ITS | Continuity of Care Document ---
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 Name Role Phone Sera OLIVIER, Valorie Cassidy Primary Care Physician [place] [facility] [place] 08[place]18/[address] [address]- [facility] Attending Physician: Manuela Branham MD Admitting Physician: Manuela Branham MD Referring Physician: Lisa Friend MD Allergies, Adverse Reactions, Alerts Substance Reaction Severity Status penicillin Active sulfADIAZINE Active Vicodin Active Latex Active PHENobarbital Active Medications amlodipine-atorvastatin 5 mg-10 mg oral tablet 1 tablet, By Mouth, Daily, # 30 tablet, 0 Refills, Maintenance, 07/08/18 17:40:16 EDT, Tablet Start Date: 07/08/18 Status: Ordered Colace Clear 50 mg oral capsule 1 capsule = 50 mg, By Mouth, 2 times a day, 0 Refills, Maintenance, 07/08/18 17:38:31 EDT Start Date: 07/08/18 Status: Ordered lisinopril 40 mg oral tablet 1 tablet = 40 mg, By Mouth, Daily, # 90 tablet, 0 Refills, Maintenance, 07/08/18 17:39:56 EDT, Tablet Start Date: 07/08/18 Status: Ordered nitrofurantoin macrocrystals 100 mg oral capsule 1 capsule = 100 mg, By Mouth, 4 times a day, 0 Refills, Maintenance, 07/08/18 17:41:57 EDT Start Date: 07/08/18 Status: Ordered oxybutynin 5 mg oral tablet 1 tablet = 5 mg, By Mouth, 3 times a day, # 30 tablet, 0 Refills, Maintenance, 07/08/18 17:39:17 EDT, Tablet Start Date: 07/08/18 Status: Ordered Quetiapine By Mouth, Refills 0, Maintenance, 07/08/18 17:41:38 EDT Start Date: 07/08/18 Status: Ordered raloxifene 60 mg oral tablet 1 tablet = 60 mg, By Mouth, Daily, # 90 tablet, 0 Refills, Maintenance, 07/08/18 17:38:44 EDT, Tablet Start Date: 07/08/18 Status: Ordered Strattera 40 mg oral capsule 1 capsule = 40 mg, By Mouth, Daily in AM, # 90 capsule, 0 Refills, Maintenance, 07/08/18 17:39:04 EDT, Capsule Start Date: 07/08/18 Status: Ordered Social History Social History Type Response Smoking Status Former smoker, quit more than 30 days ago entered on: 07/08/18 Sex
--- OUTSIDE RECORDS SUMMARY | 2024-01-24 10:02 | XMS_ITS | Continuity of Care Document ---
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[employer] Assistant Name Role Phone Sera OLIVIER, Valorie Cassidy Primary Care Physician Encounter [facility] Date(s): 01/17/23 - 02/19/[address] [address] Discharge Disposition: A-Transfer SNF Attending Physician: Stefanie Donis MD Admitting Physician: Bandar Nye MD Referring Physician: Not on Staff, Referring MD Allergies, Adverse Reactions, Alerts Substance Reaction Severity Status penicillin Active sulfADIAZINE Active Vicodin Active Demerol Active Latex Active PHENobarbital Active Immunizations Given and Recorded Vaccine Date Status Refusal Reason zoster vaccine, inactivated 03/23/18 Recorded zoster vaccine, inactivated 01/06/18 Recorded influenza virus vaccine, inactivated 04/29/17 Michele rded Medications amLODIPine 5 mg oral tablet 1 tablet = 5 mg, By Mouth, Daily, 0 Refills, Maintenance, 12/03/22 15:19:00 EDT, Partial fill upon patient request if the prescription is for a schedule II opioid drug. Start Date: 12/03/22 Status: Ordered aspirin 81 mg oral tablet, chewable 81 mg, 1, tablet, By Mouth, Daily, # 30 tablet, Refills 0, Tot. Refills 0, Maintenance, 10/23/21 15:57:00 EDT, Route to Pharmacy Electronically, [id number], Partial fill upon patientrequest if the prescription is for a schedule II op... Start Date: 10/23/21 Status: Ordered Home Blood Pressure Monitor See Instructions, # 1 each, Refills 0, Tot. Refills 0, Maintenance, check BP daily, diagnosis: Stroke with hypertension, 02/23/22 12:28:00 EST, Supply Start Date: 02/23/22 Status: Ordered ibuprofen 800 mg oral tablet 800 mg, 1, tablet, By Mouth, Every 8 hours, # 15 tablet, Refills 0, Tot. Refills 0, Maintenance, 12/15/22 10:16:00 EDT, Route to Pharmacy Electronically, [id number], Partial fill uponpatient request if the prescription is for a schedule I... Start Date: 12/15/22 Status: Ordered Lipitor 80 mg oral tablet 1 tablet = 80 mg, By Mouth, Daily at bedtime, # 30 tablet, 0 Refills, Maintenance, 10/23/21 15:57:00 EDT, Tablet, [id number], Partial fill upon patient request if the prescription isfor a schedule II opioid drug., 163, cm, 10/20/21 7... Start Date: 10/23/21 Status: Ordered lisinopril 20 mg oral tablet 20 mg, 1, tablet, By Mouth, Daily, # 30 tablet, Refills 0, Tot. Refills 0, Maintenance, 10/23/21 15:58:00 EDT, Route to Pharmacy Electronically, [facility] #[id number], Partial fill upon patientrequest if the prescription is for a schedule II op... Start Date: 10/23/21 Status: Ordered methenamine hippurate 1 gm oral tablet 1 tablet = 1 Gm, By Mouth, Daily, 0 Refills, Maintenance, 12/03/22 15:20:00 EDT, Partial fill upon patient request if the prescription is for a schedule II opioid drug. Start Date: 12/03/22 Status: Ordered Norvasc 5 mg oral tablet 5 mg, Tablet, By Mouth, 02/19/23 9:00:00 EST Start Date: 02/19/23 Stop Date: 02/19/23 Status: Completed oxyCODONE 5 mg oral tablet 7.5 mg, By Mouth, Every 6 hours, PRN, for 3 days, # 12 tablet, Refills 0, Tot. Refills 0, Acute 02/22/23 9:39:00 EST, Pain , Severe, 02/19/23 9:39:00 EST, Route to Pharmacy Electronically, [facility], Partial fill upon patient request if... Start Date: 02/19/23 Stop Date: 02/22/23 Status: Ordered oxyCODONE 5 mg oral tablet 7.5 mg, Tablet, By Mouth, Every 6 hours, Hold for: sbp<100 or oversedation or rr<12, PRN for Pain , Severe, Routine, 01/25/23 22:25:00 EST Start Date: 01/25/23 Stop Date: 02/19/23 Status: Discontinued QUEtiapine 50 mg oral tablet 1 tablet = 50 mg, By Mouth, 2 times a day, # 60 tablet, 0 Refills, Maintenance, 10/23/21 15:59:00 EDT, Tablet, [id number], Partial fill upon patient request if the prescription is for a schedule II opioid drug., 163, cm, 10/20/21 7:50... Start Date: 10/23/21 Status: Ordered Senna 8.6 mg oral tablet 8.6 mg, 1, tablet, By Mouth, Daily at bedtime, # 30 tablet, Refills 0, Tot. Refills 0, Maintenance,12/15/22 10:16:00 EDT, Route to Pharmacy Electronically, [id number], Partial fill upon patient request if the prescription is for a schedul... Start Date: 12/15/22 Status: Ordered tolterodine 4 mg oral capsule, extended release 1 capsule = 4 mg, By Mouth, Daily, 0 Refills, Maintenance, 12/03/22 13:51:00 EDT, Partial fill uponpatient request if the prescription is for a schedule II opioid drug. Start Date: 12/03/22 Status: Ordered Toprol XL 100 mg oral tablet, extended release 100 mg, 1, tablet, By Mouth, Daily, # 90 tablet, Refills 0, Maintenance, 01/17/23 23:28:00 EST, Partial fill upon patient request if the prescription is for a schedule II opioid drug. Start Date: 01/17/23 Status: Ordered Tylenol Extra Strength 500 mg oral tablet 2 tablet = 1,000 mg, By Mouth, Every 6 hours, PRN as needed for pain, # 50 tablet, 0 Refills, Maintenance, 12/15/22 10:16:00 EDT, Tablet, [facility], Partial fill upon patient requestif the prescription is for a schedule II opioid drug.,... Start Date: 12/15/22 Status: Ordered Problem List Condition Confirmation Course Effective Dates Status H ealth Status Informant Bipolar I disorder Confirmed Active Encephalopathy acute Confirmed Active Encephalopathy Confirmed Active Expressive aphasia Confirmed Active Hypertensive urgency Confirmed Active Left acute arterial ischemic stroke, MCA (middle cerebral artery) Confirmed Active Results Orders for Microbiology Reports Name Date Anaerobic Culture (ANAEROBIC CULTURE) Tissue Culture w/ Gram Smear (TISSUE/BIO PSY CULT.) 01/26/23 Anaerobic Culture (ANAEROBIC CULTURE) Fungal Culture, Nonrespiratory (FUNGAL C ULT,NON-RESPIRATORY) 01/24/23 Tissue Culture w/ Gram Smear (TISSUE/BIO PSY CULT.) 01/24/23 Anaerobic Culture (ANAEROBIC CULTURE) Fungal Culture, Nonrespiratory (FUNGAL C ULT,NON-RESPIRATORY) 01/19/23 Tissue Culture w/ Gram Smear (TISSUE/BIO PSY CULT.) 01/19/23 Blood Culture 01/17/23 Blood Culture #2 01/17/23 Microbiology Reports (Most Recent Ten) TEST:Anaerobic Culture STATUS:Auth (Verified) BODY SITE: SOURCE:TISSUE1 COLLECTED DATE/TIME:01/26/23 4:34 PM Anaerobic Culture SPECIMEN DESCRIPTION : TISSUE L BREAST TISSUE SPECIAL REQUESTS : NONE CULTURE : NO ANAEROBES ISOLATED REPORT STATUS : FINAL 01/31/2023 TEST:Tissue/Biopsy Culture STATUS:Auth (Verified) BODY SITE: SOURCE:TISSUE1 COLLECTED DATE/TIME:01/26/23 4:34 PM Tissue/Biopsy Culture SPECIMEN DESCRIPTION : TISSUE L BREAST TISSUE SPECIAL REQUESTS : NONE GRAM STAIN : 2+ WHITE BLOOD CELLS NO ORGANISMS SEEN CULTURE : NO GROWTH 2 DAYS REPORT STATUS : FINAL 01/29/2023 TEST:Anaerobic Culture STATUS:Auth (Verified) BODY SITE: SOURCE:TISSUE1 COLLECTED DATE/TIME:01/24/23 1:20 PM Anaerobic Culture SPECIMEN DESCRIPTION : TISSUE LEFT BREAST OR SPECIMEN SPECIAL REQUESTS : NONE CULTURE : STAPHYLOCOCCUS EPIDERMIDIS This isolate was identified using Maldi-TOF system ISOLATED FROM BROTH ONLY These AST results were performed on the Vitek 2 ID and AST system NO ANAEROBES ISOLATED REPORT STATUS : FINAL 01/28/2023 ORGANISM STAPHYLOCOCCUS EPIDERMIDIS This isolate was identified using Maldi-TOF system ISOLATED FROM BROTH ONLY These AST results were performed on the Vitek 2 ID and AST system METHOD MIN. INHIB. CONC. (MCG/ML) CIPROFLOXACIN SUSCEPTIBLE CLINDAMYCIN SUSCEPTIBLE ERYTHROMYCIN SUSCEPTIBLE LEVOFLOXACIN SUSCEPTIBLE OXACILLIN RESISTANT RIFAMPIN SUSCEPTIBLE TETRACYCLINE SUSCEPTIBLE TRIMETH/SULFAMETHOX SUSCEPTIBLE VANCOMYCIN SUSCEPTIBLE TEST:Fungal Culture, Non-Respiratory STATUS:Unauthenticated BODY SITE: SOURCE:TISSUE1 COLLECTED DATE/TIME:01/24/23 1:20 PM Fungal Culture, Non-Respiratory SPECIMEN DESCRIPTION : TISSUE LEFT BREAST OR SPECIMEN SPECIAL REQUESTS : NONE DIRECT EXAM : NO FUNGAL ELEMENTS OBSERVED CULTURE : NO FUNGI ISOLATED AFTER 24 DAYS REPORT STATUS : PRELIMINARY REPORT TEST:Tissue/Biopsy Culture STATUS:Auth (Verified) BODY SITE: SOURCE:TISSUE1 COLLECTED DATE/TIME:01/24/23 1:20 PM Tissue/Biopsy Culture SPECIMEN DESCRIPTION : TISSUE LEFT BREAST OR SPECIMEN SPECIAL REQUESTS : NONE GRAM STAIN : NO CELLS OR ORGANISMS SEEN CULTURE : NO GROWTH 2 DAYS REPORT STATUS : FINAL 01/26/2023 TEST:Anaerobic Culture STATUS:Auth (Verified) BODY SITE: SOURCE:TISSUE1 COLLECTED DATE/TIME:01/19/23 3:30 PM Anaerobic Culture SPECIMEN DESCRIPTION : TISSUE LEFT BREAST SPECIAL REQUESTS : NONE CULTURE : NO ANAEROBES ISOLATED REPORT STATUS : FINAL 01/21/2023 TEST:Fungal Culture, Non-Respiratory STATUS:Auth (Verified) BODY SITE: SOURCE:TISSUE1 COLLECTED DATE/TIME:01/19/23 3:30 PM Fungal Culture, Non-Respiratory SPECIMEN DESCRIPTION : TISSUE LEFT BREAST SPECIAL REQUESTS : NONE DIRECT EXAM : NO FUNGAL ELEMENTS OBSERVED CULTURE : NO FUNGI ISOLATED AFTER 29 DAYS REPORT STATUS : FINAL 02/17/2023 TEST:Tissue/Biopsy Culture STATUS:Auth (Verified) BODY SITE: SOURCE:TISSUE1 COLLECTED DATE/TIME:01/19/23 3:30 PM Tissue/Biopsy Culture SPECIMEN DESCRIPTION : TISSUE LEFT BREAST SPECIAL REQUESTS : NONE GRAM STAIN : 2+ SQ.EPITHELIAL CELLS 4+ POLYMORPHONUCLEAR LEUKOCYTES 2+ GRAM POSITIVE COCCI CULTURE : 4+ STAPHYLOCOCCUS EPIDERMIDIS This isolate was identified using Maldi-TOF system These AST results were performed on the Vitek 2 ID and AST system CRITICAL VALUE CALLED AND VERIFIED BY READBACK FOR: STAPH EPIDERMIDIS IN TISSUE CULTURE TO [id number], W4, ON 01/20/2023 AT 13:43 BY [employer] [id number] REPORT STATUS : FINAL 01/21/2023 ORGANISM 4+ STAPHYLOCOCCUS EPIDERMIDIS This isolate was identified using Maldi-TOF system These AST results were performed on the Vitek 2 ID and AST system METHOD MIN. INHIB. CONC. (MCG/ML) CIPROFLOXACIN SUSCEPTIBLE CLINDAMYCIN SUSCEPTIBLE ERYTHROMYCIN RESISTANT INDUCIBLE CLINDAMYCI NEGATIVE LEVOFLOXACIN SUSCEPTIBLE OXACILLIN RESISTANT RIFAMPIN SUSCEPTIBLE TETRACYCLINE SUSCEPTIBLE TRIMETH/SULFAMETHOX RESISTANT VANCOMYCIN SUSCEPTIBLE TEST:Blood Culture STATUS:Auth (Verified) BODY SITE: SOURCE:Blood COLLECTED DATE/TIME:01/17/23 11:40 PM Blood Culture SPECIMEN DESCRIPTION : BLOOD LA SPECIAL REQUESTS : NONE CULTURE : NO GROWTH 5 DAYS. REPORT STATUS : FINAL 01/23/2023 TEST:Blood Culture, Second Order STATUS:Auth (Verified) BODY SITE: SOURCE:Blood COLLECTED DATE/TIME:01/17/23 11:40 PM Blood Culture, Second Order SPECIMEN DESCRIPTION : BLOOD RT SPECIAL REQUESTS : NONE CULTURE : NO GROWTH 5 DAYS. REPORT STATUS : FINAL 01/23/2023 Radiology Reports * Exam Date Time Procedure Performing Provider Status 02/15/23 10:[address] Abd/Pelvis W/ IV Contrast Only Nicholas Vera; Auth (Verified) Notes: (CT Abd/Pelvis W/ IV Contrast Only) Reason For Exam: Pain RESULT: CT Abd/Pelvis W/ IV Contrast Only CT Abd/Pelvis W/ IV Contrast Only Reason: Pain; Clinical Question(s): Pancreatitis TECHNIQUE: Spiral CT through the abdomen and pelvis with IV contrast formatted in 3 planes. 100 cc of Omnipaque 300 was administered intravenously. This study was performed without oral contrast. Weight-based protocol using automatic tube modulation was used to optimize exposure parameters. CTDIvol Body: 13.81 mGy, DLP Body: 727 mGy*cm. COMPARISON: 10/11/2019. 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 Visualized Chest: Lung bases are clear. No pleural effusion. The heart is normal in size. No pericardial effusion. Diaphragm: Normal. Liver: Unchanged calcification in the dome of the right lobe of the liver. Hepatic steatosis. Gallbladder: No CT evidence of gallbladder pathology. Bile ducts: No biliary ductal dilation. Spleen: Normal. Pancreas: Stranding seen along the body and tail of the pancreas. No fluid collection or nonenhancement. Adrenal glands: Normal. Kidneys and ureters: Unchanged atrophic right kidney. No hydronephrosis, stones, or suspicious masses. Small hypodensities that are too small to characterize are noted, requiring no dedicated follow up. Bladder: Normal. Reproductive organs: Status post hysterectomy Stomach, small bowel, and large bowel: No evidence of obstruction or inflammation. Mild stool retention. Appendix: Not seen, but no evidence of appendicitis. Peritoneum and retroperitoneum: No ascites or pneumoperitoneum. No omental or mesenteric lesions. Lymph nodes: No enlarged lymph nodes. Blood vessels: Mild vascular calcifications but no aneurysm. No evidence of venous thrombosis. Abdominal and pelvic wall: Unremarkable. Partially visualized chest wall shows large defect consistent with recent left mastectomy. No fluid collection. Air is seen between the chest wall and skin graft. Bones: No acute abnormality. IMPRESSION: Findings consistent with acute uncomplicated pancreatitis. Evidence of recent left mastectomy with air seen between the chest wall and skin graft. No fluid collection. I have personally reviewed the images and I agree with this report. WSN: [id number] Ordering Physician: Krystal Yanez Dictated By: Soni Parks DO Dictated Date/Time: 02/15/23 11:38 p Reviewed By: Alexandru Spann MD Signed By: Alexandru Spann MD Signed Date/Time: 02/15/23 11:43 pm Transcribed By: JONAH Transcribed Date/Time: 02/15/23 11:29 pm * Exam Date Time Procedure Performing Provider Status 02/15/23 2:15 PM US RUQ Jada Luz; Auth ( Verified) Notes: (US RUQ) Reason For Exam: Cholecystitis, pain per MD ;Cholecystitis RESULT: US RUQ US RUQ Reason: Cholecystitis, pain per MD; Clinical Question(s): Cholecystitis COMPARISON: CT abdomen and pelvis 05/11/2019 FINDINGS: Liver: Right hepatic dome partially obscured due to bowel gas. Normal in size and echotexture. No focal lesion in visualized liver. Main portal vein patent with normal hepatopetal direction of flow. Gallbladder: Multiple mobile gallstones. Normal wall thickness. No pericholecystic fluid. Negative Walker sign. Biliary Tree: No intrahepatic or extrahepatic bile duct dilation is identified. Common duct measures: 0.7 cm. Pancreas: No abnormality in the visualized portions of the pancreas. Right kidney: Normal parenchymal echotexture and thickness. No hydronephrosis, stone or mass. IMPRESSION: Cholelithiasis without acute cholecystitis. WSN: [id number] Ordering Physician: Thao Lord Dictated By: Christian Lewis MD Dictated Date/Time: 02/15/23 3:00 pm Reviewed By: Christian Lewis MD Signed By: Christian Lewis MD Signed Date/Time: 02/15/23 3:00 pm Transcribed By: JONAH Transcribed Date/Time: 02/15/23 2:58 pm * Exam Date Time Procedure Performing Provider Status 01/18/23 12:26 AM Chest 2 Views Frontal and Lat Kelly Bullock; Zaire (Verified) Notes: (Chest 2 Views Frontal and Lat) Reason For Exam: Shortness of Breath RESULT: Chest 2 Views Frontal and Lat Chest 2 Views Frontal and Lat Reason: Shortness of Breath; Clinical Question(s): Pneumonia COMPARISON: 10/12/2021 and 07/08/2018 FINDINGS: LINES AND TUBES: None. LUNGS AND PLEURA: Diaphragms are held high in position with some crowding of basilar markings but no focal infiltrateor volume loss. No pleural effusion. No pneumothorax. HEART, MEDIASTINUM AND RIZWAN: Heart is normal in size. Stable mediastinal and hilar contours with aortic unfolding. BONES AND SOFT TISSUES: No acute abnormality. Thoracic kyphoscoliosis with scattered degenerative changes. IMPRESSION: No acute abnormality. No pneumonia. WSN: [id number] Ordering Physician: Bandar Nye Dictated By: Stephen Rolle MD Dictated Date/Time: 01/18/23 8:34 am Reviewed By: Stephen Rolle MD Signed By: Stephen Rolle MD Signed Date/Time: 01/18/23 8:34 am Transcribed By: JONAH Transcribed Date/Time: 01/18/23 8:31 am Vital Signs Most recent to oldest [Reference Range]: 1 2 3 Height 163 cm (02/19/23 11:16 AM) 163 cm (02/19/23 9:06 AM) 163 cm (02/18/23 7:30 AM) Weight 86.3 kg (02/17/23 2:28 PM) 86.3 kg (02/04/23 6:13 AM) 86.3 kg (01/27/23 2:37 PM) Oxygen Saturation [94-100 %] 99 % (02/19/23 11:16 AM) 94 % (02/19/23 4:00 AM) 98 % (02/18/23 7:00 PM) Pulse Rate [55-90 bpm] 88 bpm (02/19/23 11:16 AM) 76 bpm (02/19/23 4:00 AM) 82 bpm (02/18/23 7:00 PM) Body Mass Index [18.5-24.99 kg/m2] 32.48 kg/m2 *>HHI* (02/17/23 2:28 PM) 32.48 kg/m2 *>HHI* (02/04/23 6:13 AM) 32.48 kg/m2 *>HHI* (01/27/23 2:37 PM) Blood Pressure [90-138/55-84 mm Hg] 124/76mm Hg (02/19/23 11:18 AM) 124/76mm Hg (02/19/23 11:16 AM) 115/70mm Hg (02/19/23 4:00 AM) Respiratory Rate [16-30 br/min] 19 br/min (02/19/23 11:16 AM) 16 br/min (02/19/23 7:42 AM) 20 br/min (02/19/23 6:42 AM) Temperature [96.8-100.4 DegF] 97.6 DegF (02/19/23 11:16 AM) 98.3 DegF (02/19/23 9:06 AM) 98 DegF (02/19/23 4:00 AM) Liters per Minute 6 L/min (02/17/23 5:15 PM) 6 L/min (01/27/23 5:00 PM) 2 L/min (01/26/23 5:45 PM) Mode of Delivery (Oxygen) Room air (02/19/23 11:16 AM) Room air (02/19/23 4:00 AM) Room air (02/18/23 7:00 PM) Blood pressure sites Arm, right (02/19/23 11:16 AM) Arm, right (02/19/23 4:00 AM) Arm, right (02/18/23 7:00 PM) Temperature Route Axillary (02/19/23 11:16 AM) Axillary (02/19/23 9:06 AM) Oral (02/19/23 4:00 AM) Dry Weight 86.3 kg (02/04/23 6:13 AM) 86.3 kg (01/26/23 2:48 PM) 86.3 kg (01/18/23 1:50 PM) Weight Obtained Via Patient/family state d (01/26/23 2:48 PM) bedscale (01/18/23 1:50 PM) Patient/family stated (01/17/23 7:27 PM) Dry Weight Obtained Via Patient/family s tated (01/26/23 2:48 PM) bedscale (01/18/23 1:50 PM) Patient/family stated (01/17/23 7:27 PM) Social History Social History Type Response Smoking Status Cigars or pipes silverio y within last 30 days entered on: 10/12/21 Sex Consult note * Krystal Yanez MD: PERFORM Event Display: Consult Authored Date: Patient: ??ARAVIND, ANOOP ? Age:??67 Years?Sex:??Female?:??[id number]?? Chief Complaint/Reason for Consult Reason for consult: gallstone pancreatitis History of Present Illness Patient is a 67-year-old female with past medical history of bipolar 1, left MCA stroke with residual expressive aphasia, and hypertension, hyperlipidemia??who is here on this admission for left breast abscess requiring drainage, debridement??and mastectomy.?? She has been admitted to the medical service, and trauma surgery has been managing her necrotizing soft tissue infection.?? She was preparing for discharge, when a few days ago she began experiencing intermittent right-sided abdominal pain and epigastric pain.?? This pain is not associated with eating.?? She does feel nauseous with thispain, but denies any vomiting.?? She has had episodes of similar pain in the past, occurring in the right upper quadrant and associated with vomiting.?? These episodes would typically last a day or 2, and she has not experienced an episode like this in few years.?? She has not had any diarrhea or constipation.?? Denies any fever, chills, chest pain, shortness of breath,??headache and dizziness.??When she began experiencing this pain, her primary team??got a full set of labs,??which revealed a lipase of 8117, amylase of 1172, elevated AST and ALT,??bilirubin of 1.4,??and alk phos of 587.?? She also had a new elevated white blood count of 12.2.?? She underwent right upper quadrant ultrasound??due to concern for??gallstone pancreatitis,??which revealed cholelithiasis??with no gallbladder wall thickening,??no pericholecystic fluid,??and CBD measuring at 7 mm.?? EGS was consulted due to concern for gallstone pancreatitis. Review of Systems A 14 point review of systems was performed,??and was negative except as stated in the HPI. Physical Exam Vitals & Measurements T:??98.6?F?? HR:??109??(Peripheral)?? RR:??18?? BP:??140/60?? SpO2:??99%?? HT:??163??cm?? WT:??86.3??kg?? BMI:??32.48?? General: no acute distress, non toxic, resting comfortably HEENT: PERRLA, MMM Neck: midline trachea, no deformities Chest: dressing in place over left chest, which is clean, dry and in tact Lungs: nonlabored breathing. Not on supplemental O2 Heart: RRR Abdomen: Soft, mildly distended, tender to palpation in the RUQ and epigastrium. 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 The patient has been experiencing intermittentRUQ and epigastric pain associated with nausea for the past few days, and labs were significant larissa elevated lipase to 8117, as well as elevated LFTs including a total bilirubin of 1.4. RUQ ultrasound showed cholelithiasis without evidence of acute cholecystitis. On my exam, the patient had RUQ and epigastric tenderness, and a positive Walker's sign. Given the distribution of the patient's abdominal tenderness, elevated lipase and LFTs, and evidence of cholelithiasis, the patient is most likely experiencing acute gallstone pancreatitis. We would recommend medical management of her pancreatitis, including adequate fluid resuscitation, NPO/bowel rest, and a work up with CT A/P with IV contrast. Given the high likelihood of recurrence, the patient should undergo laparoscopic cholecystectomy on this admission, once her pancreatitis has resolved. Trauma surgery will continue to follow this patient from a surgical standpoint, and EGS will be signing off at this time. ?? Recommendations: NPO Maintenance IVFs Fractionated bilirubin CT A/P with IV contrast Continue trending LFTs Lap cholecystectomy on this admission, once pancreatitis resolved Rest of care per primary team ?? Emergency General Surgery, [id number] Gardner Problem List/Past Medical History Ongoing Bipolar I disorder Encephalopathy Encephalopathy acute Expressive aphasia Hypertensive urgency Left acute arterial ischemic stroke, MCA (middle cerebral artery) Obese class I Procedure/Surgical History Rectocele Repair Total Left and right knee replacement Vaginal Hysterectomy Maloney Urethropexy Home Medications Acetaminophen: 1,000 mg = 2 tablet, By Mouth, Every 6 hours, PRN (as needed for pain) Amlodipine: 5 mg = 1 tablet, By Mouth, Daily Aspirin: 81 mg = 1 tablet, By Mouth, Daily Atorvastatin: 80 mg = 1 tablet, By Mouth, Daily at bedtime Durable Medical Equipment: See Instructions, check BP daily, diagnosis: Stroke with hypertension Ibuprofen: 800 mg = 1 tablet, By Mouth, Every 8 hours Lisinopril: 20 mg = 1 tablet, By Mouth, Daily Methenamine: 1 Gm = 1 tablet, By Mouth, Daily Metoprolol: 100 mg = 1 tablet, By Mouth, Daily Oxycodone: 5 mg, By Mouth, Every 6 hours, PRN (Pain , Severe) Quetiapine: 50 mg = 1 tablet, By Mouth, 2 times a day Senna: 8.6 mg = 1 tablet, By Mouth, Daily at bedtime Tolterodine: 4 mg = 1 capsule, By Mouth, Daily Allergies Demerol Latex PHENobarbital Vicodin penicillin sulfADIAZINE Social History Alcohol Use: Current. Frequency: 1-2 times per week. Exercise Self assessment: Good condition. Exercise type: Walking. Home/Environment Lives with: Children. Nutrition/Health Diet: Regular. Substance Abuse Use: Never. Tobacco Use: Cigars or pipes daily within last 30 days. Family History Mother: Blood clot; High blood pressure; Osteoporosis Father: CHF - Congestive heart failure; Diabetes mellitus Lab Results Labs Last 24 Hours BLOOD COUNT & DIFF ? Event Name?? Event Result?? Date/Time?? WBC 12.2 k/mm3??High 02/15/23 13:23:00 RBC 3.69 m/mm3??Low 02/15/23 13:23:00 Hgb 10.8 Gm/dL??Low 02/15/23 13:23:00 Hct 33.4 %??Low 02/15/23 13:23:00 MCV 90.5 femtoliters 02/15/23 13:23:00 MCH 29.3 pg 02/15/23 13:23:00 MCHC 32.3 g/dL??Low 02/15/23 13:23:00 Platelet Count 408 k/mm3 02/15/23 13:23:00 MPV 9 femtoliters??Low 02/15/23 13:23:00 Nucleated RBC (Automated) 0 #/100 WBC'S 02/15/23 13:23:00 ? CHEM GENERAL ? Event Name?? Event Result?? Date/Time?? Sodium 138 mmol/L 02/15/23 13:27:00 Chloride 104 mmol/L 02/15/23 13:27:00 Bicarbonate Level 23 mmol/L 02/15/23 13:27:00 Anion Gap 11 02/15/23 13:27:00 Glucose Level 141 mg/dL??High 02/15/23 13:27:00 BUN 15 mg/dL 02/15/23 13:27:00 Creatinine-Blood 0.9 mg/dL 02/15/23 13:27:00 Alkaline Phosphatase 587 units/L??High 02/15/23 13:27:00 Amylase 1172 units/L??High 02/15/23 13:27:00 Lipase 8117 units/L??High 02/15/23 13:27:00 AST (SGOT) 311 units/L??High 02/15/23 13:27:00 ALT (SGPT) 367 units/L??High 02/15/23 13:27:00 Bilirubin, Total 1.4 mg/dL??High 02/15/23 13:27:00 Bilirubin, Total 1.4 mg/dL??High 02/15/23 13:27:00 Bilirubin, Direct 1.2 mg/dL??High 02/15/23 13:27:00 Bilirubin, Indirect 0.2 mg/dL 02/15/23 13:27:00 ? Images Reason For Exam Cholecystitis, pain per MD ;Cholecystitis ?? RESULT: US RUQ US RUQ? Reason: Cholecystitis, pain per MD; Clinical Question(s): Cholecystitis ?? COMPARISON: CT abdomen and pelvis 05/11/2019 ?? FINDINGS: ?? Liver: Right hepatic dome partially obscured due to bowel gas. Normal in size and echotexture. No focal lesion in visualized liver. Main portal vein patent with normal hepatopetal direction of flow. ?? Gallbladder: Multiple mobile gallstones. Normal wall thickness. No pericholecystic fluid. Negative Walker sign. ?? Biliary Tree: No intrahepatic or extrahepatic bile duct dilation is identified. Common duct measures: 0.7 cm. ?? Pancreas: No abnormality in the visualized portions of the pancreas. ?? Right kidney: Normal parenchymal echotexture and thickness. No hydronephrosis, stone or mass.? IMPRESSION:? Cholelithiasis without acute cholecystitis. ? WSN: [id number] ? Ordering Physician: Thao Lord? Signature Line Dictated By: ?Christian Lewis MD Dictated Date/Time: ?02/15/23 3:00 pm Reviewed By: ?Christian Lewis MD Signed By: ? Christian Lewis MD Signed Date/Time: ? 02/15/23 3:00 pm Transcribed By: ? CSB Transcribed Date/Time: ?02/15/23 2:58 pm * Jj OLIVIER, Kan: PERFORM Event Display: Consult Authored Date: I have seen and evaluated this patient on the above documented date. I have discussed the case and its management with the resident team and APPs as documented in the progress note. ? Patient well known to the Trauma Services, Will schedule for laparoscopic possible open cholecystectomy. ? RA * Daisy OLIVIER, Chapin: MODIFY, MODIFY, PERFORM, MODIFY, MODIFY, MODIFY, MODIFY Event Display: Consultation Note Authored Date: [id number] Patient: ??ANOOP COONEY ? Age:??67 Years?Sex:??Female?:??1955?? Chief Complaint coming from bryan for ?abscess on L breast. sent here for surgical removal. denies fevers. Reason for Consultation Breast abscess concerning for??antibiotic management Referring physician ??MD Jt Consulting physician ??Lance Kearns MD History of Present Illness Ms. Pablo is a 67-year-old female with past medical history of bipolar, history of CVA left middle cerebral artery, diastolic dysfunction, hypertension, dyslipidemia who presented to the [facility] with complaints of pain and swelling on the left breast on 01/18, patient had redness in the left breast with associated discharge of purulent material the day before she was having chills rerouting appointment with her artificial stone applicator who referred her to the ER for possible breast abscess patientwas then transferred to [facility] for further surgical evaluation.?? Patient had incision and drainage, was put on broad-spectrum antibiotics.?? Patient was taken to surgery on 01/19 had incision and drainage with left breast wide debridement of skin, subcutaneous tissue had frozen section results showing no evidence of any malignancy, tissue necrosis is noted but no organisms/bacteria, vasculitis which are typically associated with necrotizing soft tissue infection Patient's WBC on admission was 15.5 and currently is 9.5 neutrophil percentage on admission at 81% BUN/creatinine currently is 11 and 0.9, also had a urinary tract infection on admission Infectious disease was consulted for further antibiotic management ?? Blood cultures done on 01/17 have been negative at 48 hours deep tissue cultures done from the past on 01/17 was showing 4+ WBCs and 4+??gram-positive cocci with further identity showing??strep intermedius??3+?? anaerobic culture done on the tissue on the left breast on 01/19??shows??no anaerobes And??tissue culture from 01/19 shows??4+ WBCs and 2+ gram-positive cocci ?? patient currently is getting cefepime from 01/19, vancomycin from 01/19 ?? Review of Systems Constitutional:??No weight loss, fever, chills, weakness or fatigue. Allergy/Immune: Denies any??Eczema or hives Eyes:??No visual loss, blurred vision, double vision or yellow sclera ENT:??No hearing loss, sneezing, congestion, runny nose or sore throat. Respiratory:??No shortness of breath, cough or sputum production. Cardiovascular:??No chest pain, chest pressure or chest discomfort. No palpitations or pedal edema. Gastrointestinal:??No anorexia, nausea, vomiting or diarrhea. No abdominal pain or blood in stool. Genitourinary:??No burning micturition. No urinary frequency or incontinence. Neurologic:??No headache, dizziness, syncope, unilateral weakness, ataxia, numbness or tingling in the extremities. ??Patient has dysphasia, recent stroke Musculoskeletal:??No muscle pain, back pain, joint pain or stiffness. Hematologic/Lymphatics:??No bleeding or bruising. No painful lymph nodes. Skin:??Left wrist area wound Endocrine:??No reports of sweating. No cold or heat intolerance. No polyuria or polydipsia. Psychiatric:??No depression or anxiety. Physical Exam Constitutional: Alert, in no distress. Mental Status: Oriented to person, place and time. Head: Normocephalic. Eyes: Pupils are equal, round and reactive to light. Extraocular muscles intact. Ear, Nose and Throat: Oropharynx clear, mucous membranes moist,. Trachea midline. Neck: Supple, Full range of motion. Respiratory: Clear to auscultation. No wheezing, rales or rhonchi. Cardiovascular: S1 S2 regular. No murmurs, rubs or gallops. Gastrointestinal: Abdomen soft, non-tender, non-distended. Normal bowel sounds.?? No hepatosplenomegaly. Genitourinary: No costovertebral angle tenderness. Neurologic:?? Moves all extremities spontaneously. Skin: Patient has a left breast area wound which is bandaged Musculoskeletal: No cyanosis or clubbing. No gross deformities. Normal range of motion. Heme/Lymphatics/Immun: Palpation of neck reveals no swelling or tenderness of neck nodes. Palpationof groin reveals no swelling or tenderness of groin nodes. Psychiatric: Normal mood and affect Assessment/Plan Ms. Pablo is a 67-year-old female with past medical history of bipolar, history of CVA left middle cerebral artery, diastolic dysfunction, hypertension, dyslipidemia who presented to the [facility] with complaints of pain and swelling on the left breast on 01/18, patient had redness in the left breast with associated discharge of purulent material the day before she was having chills rerouting appointment with her artificial stone applicator who referred her to the ER for possible breast abscess patientwas then transferred to [facility] for further surgical evaluation.?? Patient had incision and drainage, was put on broad-spectrum antibiotics.?? Patient was taken to surgery on 01/19 had incision and drainage with left breast wide debridement of skin, subcutaneous tissue had frozen section results showing no evidence of any malignancy, tissue necrosis is noted but no organisms/bacteria, vasculitis which are typically associated with necrotizing soft tissue infection ?? Patient has a left breast abscess??with debridement/drainage??blood cultures showing strep??intermedius infection and most recent update on tissue culture showing stap epidemidis likely could be a contaminant??again cannot r/o infection. ?? Recommendations: Continue the patient on the vancomycin Discontinue cefepime Recommend ceftriaxone 2 gm daily Based on the staph epi susceptibilities will give further recommendations ?? Thank you for this consultation.? Chapin Villa MD PGY4 Infectious diseases Fellow ? This patient was seen and discussed with attending physician, Dr Lucas Total time spent 60 minutes ? Problem List/Past Medical History Ongoing Bipolar I disorder Encephalopathy Encephalopathy acute Expressive aphasia Hypertensive urgency Left acute arterial ischemic stroke, MCA (middle cerebral artery) Obese class I Procedure/Surgical History ???Oophorectomy Laparoscopic (Bilateral) (12/15/2022)???Vaginal Hysterectomy???Total Left and rightknee replacement???Maloney Urethropexy???Rectocele Repair Medications Inpatient Acetaminophen 325 mg Oral Tablet (PACU ONLY), 650 mg, By Mouth, Once, PRN Acetaminophen Tablet, 650 mg, By Mouth, Every 4 hours, PRN aspirin 81 mg oral delayed release tablet, 81 mg, By Mouth, Daily Cefepime Extended IVPB, 2000 mg, IVPB, Every 12 hours Docusate Sodium Capsule, 100 mg= 1 capsule, By Mouth, 2 times a day, PRN Enoxaparin Inj, 40 mg= 0.4 mL, Subcutaneous Injection, Daily Fentanyl Inj (PACU ONLY), 25 mcg= 0.5 mL, IV Push Slowly, Every 5 minutes, PRN GuaiFENEsin /Dextromethorphan Liquid, 10 mL, By Mouth, Every 6 hours, PRN HYDROmorphone Inj, 0.5 mg= 0.5 mL, IV Push Slowly, Once, PRN HYDROmorphone Inj (PACU ONLY), 0.5 mg= 0.5 mL, IV Push Slowly, Every 10 minutes, PRN Lipitor 80 mg oral tablet, 80 mg, By Mouth, Daily at bedtime lisinopril 20 mg oral tablet, 20 mg, By Mouth, Daily Melatonin Tablet, 3 mg, By Mouth, Daily at bedtime, PRN MiraLax Powder, 17 Gm= 1 pack/packet, By Mouth, Daily, PRN NaCL 0.9% Flush, 3 mL, IV Push, Every 8 hours NaCL 0.9% Flush, 3 mL, IV Push, Every 8 hours, PRN nalOXONE Inj, 0.04 mg= 0.1 mL, IV Push, Every 5 minutes, PRN Norvasc 5 mg oral tablet, 5 mg, By Mouth, Daily Ondansetron Inj (PACU ONLY), 4 mg, IV Push, Once, PRN oxyCODONE 5 mg oral tablet, 5 mg, By Mouth, Every 6 hours, PRN Oxycodone 5mg Oral Tablet (PACU ONLY), 5 mg, By Mouth, Once, PRN Oxycodone 5mg Oral Tablet (PACU ONLY), 10 mg, By Mouth, Once, PRN Senna Tablet, 8.6 mg= 1 tablet, By Mouth, 2 times a day, PRN SEROquel 25 mg oral tablet, 50 mg, By Mouth, Daily at bedtime Toprol XL 100 mg oral tablet, extended release, 100 mg, By Mouth, Daily Vancomycin IVPB, 1250 mg, 15 mg/kg, IVPB, Every 36 hours Zofran Inj, 4 mg, IV Push, Every 6 hours, PRN Home amLODIPine 5 mg oral tablet, 5 mg= 1 tablet, By Mouth, Daily aspirin 81 mg oral tablet, chewable, 81 mg= 1 tablet, By Mouth, Daily Home Blood Pressure Monitor, See Instructions ibuprofen 800 mg oral tablet, 800 mg= 1 tablet, By Mouth, Every 8 hours Lipitor 80 mg oral tablet, 80 mg= 1 tablet, By Mouth, Daily at bedtime lisinopril 20 mg oral tablet, 20 mg= 1 tablet, By Mouth, Daily methenamine hippurate 1 gm oral tablet, 1 Gm= 1 tablet, By Mouth, Daily metoprolol 25 mg oral tablet, 75 mg= 3 tablet, By Mouth, 2 times a day QUEtiapine 50 mg oral tablet, 50 mg= 1 tablet, By Mouth, 2 times a day Senna 8.6 mg oral tablet, 8.6 mg= 1 tablet, By Mouth, Daily at bedtime tolterodine 4 mg oral capsule, extended release, 4 mg= 1 capsule, By Mouth, Daily Toprol XL 100 mg oral tablet, extended release, 100 mg= 1 tablet, By Mouth, Daily Tylenol Extra Strength 500 mg oral tablet, 1000 mg= 2 tablet, By Mouth, Every 6 hours, PRN Allergies Demerol Latex PHENobarbital Vicodin penicillin sulfADIAZINE Social History Alcohol Use: Current. Frequency: 1-2 times per week. Exercise Self assessment: Good condition. Exercise type: Walking. Home/Environment Lives with: Children. Nutrition/Health Diet: Regular. Substance Abuse Use: Never. Tobacco Use: Cigars or pipes daily within last 30 days. Family History Blood clot: Mother. CHF - Congestive heart failure: Father. Diabetes mellitus: Father. High blood pressure: Mother. Osteoporosis: Mother. Immunizations Vaccine Date Status zoster vaccine, inactivated 03/23/2018 Recorded zoster vaccine, inactivated 01/06/2018 Recorded influenza virus vaccine, inactivated 04/29/2017 Recorded Lab Results Culture/Event_id: ?Anaerobic Culture/[id number]?? Collect date: ?01/19/23 15:30 ? Result Status: ?Preliminary Result Date: ?01/20/23 08:06 ? SPECIMEN DESCRIPTION : TISSUE ??LEFT BREAST ?? SPECIAL REQUESTS : NONE ?? CULTURE : NO ANAEROBES ISOLATED SO FAR. ?REPORT STATUS : ?? PRELIMINARY REPORT ? Culture/Event_id: ?Deep Wound Culture/[id number]?? Collect date: ?01/17/23 18:53 ? Result Status: ?Auth (Verified) Result Date: ?01/20/23 07:14 ? SPECIMEN DESCRIPTION : PUS BREAST LT ?? SPECIAL REQUESTS : NONE ?? GRAM STAIN : 4+ POLYMORPHONUCLEAR LEUKOCYTES ?4+ GRAM POSITIVE COCCI ?? CULTURE : 3+ STREPTOCOCCUS INTERMEDIUS ??This isolate was identified using Maldi-TOF ? system SUSCEPTIBILITY TESTING NOT ROUTINELY PERFORMED ON THIS ISOLATE. ?Please consult the laboratory ([phone]) within 7 days if more ? definitive studies are clinically indicated. ?? REPORT STATUS : FINAL 01/20/2023? Culture/Event_id: ?Blood Culture, Second Order/[id number]?? Collect date: ?01/17/23 23:40 ? Result Status: ?Preliminary Result Date: ?01/19/23 23:02 ? SPECIMEN DESCRIPTION : BLOOD ??RT ?? SPECIAL REQUESTS : NONE ?? CULTURE : NO GROWTH AFTER 24 HOURS ?REPORT STATUS : ?? PRELIMINARY REPORT ? Culture/Event_id: ?Blood Culture/[id number]?? Collect date: ?01/17/23 23:40 ? Result Status: ?Preliminary Result Date: ?01/19/23 23:02 ? SPECIMEN DESCRIPTION : BLOOD ??LA ?? SPECIAL REQUESTS : NONE ?? CULTURE : NO GROWTH AFTER 24 HOURS ?REPORT STATUS : ?? PRELIMINARY REPORT ? Culture/Event_id: ?Blood Culture, Second Order/[id number]?? Collect date: ?01/17/23 14:05 ? Result Status: ?Preliminary Result Date: ?01/19/23 23:01 ? SPECIMEN DESCRIPTION : BLOOD ?? SPECIAL REQUESTS : NONE ?? CULTURE : NO GROWTH AFTER 48 HOURS ?REPORT STATUS : ?? PRELIMINARY REPORT ? Culture/Event_id: ?Blood Culture/[id number]?? Collect date: ?01/17/23 14:05 ? Result Status: ?Preliminary Result Date: ?01/19/23 23:01 ? SPECIMEN DESCRIPTION : BLOOD ?? SPECIAL REQUESTS : NONE ?? CULTURE : NO GROWTH AFTER 48 HOURS ?REPORT STATUS : ?? PRELIMINARY REPORT ? Culture/Event_id: ?Tissue/Biopsy Culture/[id number]?? Collect date: ?01/19/23 15:30 ? Result Status: ?Preliminary Result Date: ?01/19/23 19:40 ? SPECIMEN DESCRIPTION : TISSUE ??LEFT BREAST ?? SPECIAL REQUESTS : NONE ?? GRAM STAIN : 2+ SQ.EPITHELIAL CELLS ?4+ POLYMORPHONUCLEAR LEUKOCYTES ?2+ GRAM POSITIVE COCCI ??REPORT STATUS : ?? PRELIMINARY REPORT ?? * Som Lucas MD: PERFORM Event Display: Consultation Note Authored Date: Attending Attestation:??I have seen and evaluated this patient.?I have discussed the case and its management with the??Fellow and agree with the findings and plan as documented in the Fellow???s note. Additional comment: Pt is apparently going to OR again which is why I am keeping additional GN coverage.??De-escalate cefepime to ceftriaxone since i do not see an indication for such broad spectrum GN coverage. Keep the Vancomycin while pending Staph epi-sensitivity ?? ID will continue to follw?? * Maribel Wong MD: PERFORM, MODIFY, MODIFY, MODIFY Event Display: Consultation Note Authored Date: [id number] Patient: ??ANOOP COONEY ? Age:??67 Years?Sex:??Female?:??1955?? Chief Complaint Intraoperative consult due to concern for necrotizing fascitis History of Present Illness Ms. Cooney??is a 67-year-old woman with a past medical history significant for bipolar disorder, HTN, HLD, left MCA??infarct with residual expressive aphasia, encephalopathy, prior right breast abscess who presented to [facility] on 01/17??as a transfer from [facility].??Per chart, pt's symptoms have been ongoing for approximately a week??prior to presentation, and was progressively??worsening.??Laboratory work-up at presentation revealed??leukocytosis??to 15,000??with otherwisenormal H&H and unremarkable electrolytes. She ultimately underwent a bedside I&D, with drainage of approximately 50cc purulent material. She did well on post procedure day 1, but was noted tohave increase purulent drainage with inflammation today,??requiring a trip to the OR for close evaluation, drainage, and washout. ?? Intraoperatively, there were additional purulent drainage with tracking along subcutaneous planes which was concerning for necrotizing soft tissue infection, for which trauma surgery was consulted. Surgical site measured approximately 10cm x 4cm x 5cm, with healthy bleeding tissue nearby. Samples for culture & pathology were obtained. Pt required intermittent pressors intraoperatively, but otherwise stable throughout. Assessment/Plan Ms. Cooney??is a 67-year-old woman with left breast abscess that is concerning for necrotizing soft tissue infection (NSTI), for which we were consulted.??Given disease progression and clinical manifestation,??differential is broad and includes breast abscess, inflammatory breast cancer, Paget disease, NSTI.??We believe that appropriate wide debridement has been??accomplished by our breast surgerycolleagues, and no??additional debridement is necessary at this time. Will await??pathology results, which will certainly narrow down diagnosis and determine if breast imaging with MRI is??indicated.However, we will??plan to join breast surgery??intraoperatively on??Tuesday, January 24 for further evaluation and washout of left breast,??possible mastectomy,??possible [place] placement. In the meantime, please continue BID wet to dry dressings, as well as antibiotics.? Case discussed with Dr. Yanez. Trauma [id number] Problem List/Past Medical History Ongoing Bipolar I disorder Encephalopathy Encephalopathy acute Expressive aphasia Hypertensive urgency Left acute arterial ischemic stroke, MCA (middle cerebral artery) Obese class I Procedure/Surgical History Rectocele Repair Total Left and right knee replacement Vaginal Hysterectomy Maloney Urethropexy Home Medications Acetaminophen: 1,000 mg = 2 tablet, By Mouth, Every 6 hours, PRN (as needed for pain) Amlodipine: 5 mg = 1 tablet, By Mouth, Daily Aspirin: 81 mg = 1 tablet, By Mouth, Daily Atorvastatin: 80 mg = 1 tablet, By Mouth, Daily at bedtime Durable Medical Equipment: See Instructions, check BP daily, diagnosis: Stroke with hypertension Ibuprofen: 800 mg = 1 tablet, By Mouth, Every 8 hours Lisinopril: 20 mg = 1 tablet, By Mouth, Daily Methenamine: 1 Gm = 1 tablet, By Mouth, Daily Metoprolol: 75 mg = 3 tablet, By Mouth, 2 times a day Metoprolol: 100 mg = 1 tablet, By Mouth, Daily Quetiapine: 50 mg = 1 tablet, By Mouth, 2 times a day Senna: 8.6 mg = 1 tablet, By Mouth, Daily at bedtime Tolterodine: 4 mg = 1 capsule, By Mouth, Daily Allergies Demerol Latex PHENobarbital Vicodin penicillin sulfADIAZINE Social History Alcohol Use: Current. Frequency: 1-2 times per week. Exercise Self assessment: Good condition. Exercise type: Walking. Home/Environment Lives with: Children. Nutrition/Health Diet: Regular. Substance Abuse Use: Never. Tobacco Use: Cigars or pipes daily within last 30 days. Family History Mother: Blood clot; High blood pressure; Osteoporosis Father: CHF - Congestive heart failure; Diabetes mellitus Lab Results Labs Last 24 Hours BLOOD COUNT & DIFF ? Event Name?? Event Result?? Date/Time?? WBC 8.4 k/mm3 01/19/23 01:16:00 RBC 3.66 m/mm3??Low 01/19/23 01:16:00 Hgb 11.4 Gm/dL??Low 01/19/23 01:16:00 Hct 34.1 %??Low 01/19/23 01:16:00 MCV 93.2 femtoliters 01/19/23 01:16:00 MCH 31.1 pg 01/19/23 01:16:00 MCHC 33.4 g/dL 01/19/23 01:16:00 Platelet Count 250 k/mm3 01/19/23 01:16:00 MPV 9.7 femtoliters 01/19/23 01:16:00 Nucleated RBC (Automated) 0 #/100 WBC'S 01/19/23 01:16:00 ? CHEM GENERAL ? Event Name?? Event Result?? Date/Time?? Sodium 140 mmol/L 01/19/23 01:16:00 Chloride 107 mmol/L 01/19/23 01:16:00 Bicarbonate Level 23 mmol/L 01/19/23 01:16:00 Anion Gap 10 01/19/23 01:16:00 Glucose Level 128 mg/dL??High 01/19/23 01:16:00 BUN 13 mg/dL 01/19/23 01:16:00 Creatinine-Blood 1 mg/dL 01/19/23 01:16:00 ? * Helder Yanez MD: PERFORM Event Display: Consultation Note Authored Date: I have seen and examined the patient, the above note summarizes my encounter on the recorded date * Thomas Joshi MD: PERFORM, MODIFY Event Display: Consultation Note Authored Date: Patient: ??ARAVIND, ANOOP ? Age:??67 Years?Sex:??Female?:??1955?? Chief Complaint Consulting Physician: Dr. Omer Consulted Surgeon: Dr. Steiner Consulting Reason: L breast Abscess?? History of Present Illness Patient is a 67-year-old woman with a past medical history significant for bipolar, HTN, HLD, left MCA??infarct with residual expressive aphasia, encephalopathy, prior right breast abscess who presents to [facility] as a transfer from [facility] with left breast abscess.?? Patient r eports that approximately a week ago she noted increased soreness throughout her entire left breast??that progressively worsened throughout the week.?? She reports that she was not able to seek care due to lack of insurance. ??She was seen by a primary care physician this morning??who was concernedfor left breast abscess versus inflammatory breast cancer??and recommended immediate??presentation to [facility] for further evaluation. ??Upon arrival to [place], she was noted to be clinically and hemodynamically normal. ??She was afebrile. ??Laboratory work-up obtained revealed mild le ukocytosis of 15,000??with otherwise normal H&H and unremarkable electrolytes. ??She was also noted to have??urinary tract infection.?Patient was subsequently transferred to [facility] for further evaluation. ??Upon arrival, patient was seen by??burn surgery team??for evaluation.?She collaborates the above HPI, notably has??expressive aphasia??and reports??sometimes forgetting??certain matters??secondary from a left MCA infarct??that she sustained last year.?She deniesany trauma to the breast, and reports no??notable drainage. ??She endorses subjective fevers??and ch ills??but she has been afebrile since??arriving into [facility].?? She reports that she has been getting mammograms??that have been reportedly unremarkable.?? She denies any chest pain, shortness of breath. Review of Systems Review of system negative except as document above. Physical Exam Vitals & Measurements No qualifying data available. Constitutional: Alert, in no distress. Mental Status: Oriented to person, place and time. Head: Normocephalic. Eyes: Pupils are equal, round and reactive to light. Extraocular muscles intact. Ear, Nose and Throat: Oropharynx clear, mucous membranes moist. Ears and nose without masses, lesions or deformities. Trachea midline. Neck: Supple, Full range of motion. Respiratory: Clear to auscultation. No wheezing, rales or rhonchi. Cardiovascular: S1 S2 regular. No murmurs, rubs or gallops. Gastrointestinal: Abdomen soft, non-tender, non-distended. Normal bowel sounds. No pulsatile mass. No hepatosplenomegaly. Genitourinary: No costovertebral angle tenderness. Neurologic: Cranial nerves II-XII grossly intact. No focal neurological deficits. ??Expressive aphasia??with some delay in response. Skin: Significant erythema and induration??throughout the entire??left breast with??area of induration spanning??the medial aspect of her left breast??with an area of maximum fluctuance approximately??3 cm??from the nipple??at 10:00.?? There is an overlying skin sloughing??at the area of maximal fluctuance.?? No active drainage appreciated. ??Left breast warm to touch. Musculoskeletal: No cyanosis or clubbing. No gross deformities. Normal range of motion. Heme/Lymphatics/Immun: Palpation of neck reveals no swelling or tenderness of neck nodes. Palpationof groin reveals no swelling or tenderness of groin nodes. Psychiatric: Normal mood and affect Assessment/Plan 67-year-old woman??who presents to [facility] with left breast abscess??x1 week.?? Sheis afebrile, laboratory work-up??revealed leukocytosis of 1500??with a left shift??and otherwise unremarkable electrolytes.?? Urinalysis obtained from outside hospital with evidence of urinary tract infection.?? She underwent bedside incision and drainage of her left breast abscess??which??she tolerated well??(see??separate??procedure note).?? Admit patient to medicine??and started on broad-spectrum IV antibiotics??and follow-up cultures??to tailor antibiotics coverage. ?? Recommendations Admit to medicine Okay to have diet Adequate pain control Daily wet-to-dry dressing Blood IV antibiotics Home medications Follow-up cultures Follow-up??skin biopsy??from pathology DVT prophylaxis ? This case was discussed with attending surgeon Dr. Jatin Lora surgery #[id number] ?? This note was accomplished using [employer]. software. Despite my efforts at performing a careful andaccurate dictation, this program is prone to speech recognition errors which may result in inaccurate documentation. If clinical questions should arise, please feel free to contact me.?? Problem List/Past Medical History Ongoing Bipolar I disorder Encephalopathy Encephalopathy acute Expressive aphasia Hypertensive urgency Left acute arterial ischemic stroke, MCA (middle cerebral artery) Obese class I Procedure/Surgical History Rectocele Repair Total Left and right knee replacement Vaginal Hysterectomy Maloney Urethropexy Home Medications Acetaminophen: 1,000 mg = 2 tablet, By Mouth, Every 6 hours, PRN (as needed for pain) Amlodipine: 5 mg = 1 tablet, By Mouth, Daily Aspirin: 81 mg = 1 tablet, By Mouth, Daily Atorvastatin: 80 mg = 1 tablet, By Mouth, Daily at bedtime Durable Medical Equipment: See Instructions, check BP daily, diagnosis: Stroke with hypertension Ibuprofen: 800 mg = 1 tablet, By Mouth, Every 8 hours Lisinopril: 20 mg = 1 tablet, By Mouth, Daily Methenamine: 1 Gm = 1 tablet, By Mouth, Daily Metoprolol: 75 mg = 3 tablet, By Mouth, 2 times a day Quetiapine: 50 mg = 1 tablet, By Mouth, 2 times a day Senna: 8.6 mg = 1 tablet, By Mouth, Daily at bedtime Tolterodine: 4 mg = 1 capsule, By Mouth, Daily Allergies Demerol Latex PHENobarbital Vicodin penicillin sulfADIAZINE Social History Alcohol Use: Current. Frequency: 1-2 times per week. Exercise Self assessment: Good condition. Exercise type: Walking. Home/Environment Lives with: Children. Nutrition/Health Diet: Regular. Substance Abuse Use: Never. Tobacco Use: Cigars or pipes daily within last 30 days. Family History Mother: Blood clot; High blood pressure; Osteoporosis Father: CHF - Congestive heart failure; Diabetes mellitus Lab Results Labs Last 24 Hours No qualifying data available. * Gregg Steiner DO: PERFORM Event Display: Consultation Note Authored Date: I have discussed this patient's case with??our instructor adjunct surgical technician and reviewed her??laboratory??workand vitals including at [facility].?? Her presentation suggests??a??left breast abscess versus??underlying malignancy.?? The leukocytosis??and??timing (symptoms developing rapidly over 1 week)??ma ke??infectious etiology more likely.?? We have discussed moving forward with an incision and drainage??and admitting the patient for??IV antibiotics. History and physical note * Bandar Nye MD: PERFORM Event Display: History and Physical Hospital Authored Date: [id number] Patient: ??ARAVIND, ANOOP ? Age:??67 Years?Sex:??Female?:??1955?? Chief Complaint/Reason for Consultation coming from [facility] for ?abscess on L breast. sent here for surgical removal. denies fevers. History of Present Illness 67-year-old female presented to [facility] earlier today complaining of??pain and swelling of the left breast.?? She tells me that for the last 5-6 days??she has noted??swelling erythema and redness of the left breast with associated discharge??of purulent material.?? Yesterday she was also having chills in the morning.?? She had a routine appointment with her??artificial stone applicator who??referred her to the ER at [facility] for possible breast abscess.?? She was [facility] to [facility]??for surgical evaluation.?? The surgery service evaluated the patient in the ER??and??performed an incision and drainage of the left breast abscess.?? The patient tells me that she is feeling much more comfortable now with no associated pain.?? She was started on broad- spectrum antibiotics as well.?? She denies any chest pain,??abdominal pain, diarrhea, vomiting, urinary symptoms,??focal weakness.?? She does have some??occasional shortness of breath and a slight cough which she attributes to smoking.?? She also has a history of a previous??MCA stroke??and a slight expressive aphasia??at baseline. ? EKG: Sinus rhythm 107 bpm Review of Systems Constitutional:??Fatigue. ??Chills Eyes:??No visual loss, blurred vision, double vision or yellow sclera ENT:??No hearing loss, sneezing, congestion, runny nose or sore throat. Respiratory:??No shortness of breath, cough or sputum production. Cardiovascular:??No chest pain, chest pressure or chest discomfort Gastrointestinal:??No anorexia, nausea, vomiting or diarrhea. No abdominal pain or blood in stool. Genitourinary:??No burning micturition. No urinary frequency or incontinence. Neurologic:??No headache, dizziness, syncope, unilateral weakness, ataxia, numbness or tingling in the extremities.?? Musculoskeletal:??No muscle pain, back pain, joint pain or stiffness. Skin:??Erythema swelling and discharge from left breast Endocrine:??No reports of sweating. No cold or heat intolerance. No polyuria or polydipsia. Psychiatric:??No depression or anxiety. Objective Measurements?? Height: 163 cm (01/17/23) Weight: 89 kg (01/17/23) Dry Weight: 89 kg (01/17/23) Body Mass Index:??33.5 kg/m2??Critical (01/17/23) ? Vital Signs?? Temperature: 98.6 DegF (01/17/23 23:58:00) Temperature Route: Oral (01/17/23 23:58:00) Pulse Rate: 85 bpm (01/18/23 02:20:00) Respiratory Rate: 20 br/min (01/18/23 02:21:00) Systolic Blood Pressure: 106 mm Hg (01/18/23 02:20:00) Diastolic Blood Pressure: 66 mm Hg (01/18/23 02:20:00) Blood pressure sites: Arm, right (01/18/23 02:20:00) Mean Arterial Pressure: 80 mm Hg (01/17/23 23:30:00) Pulse Pressure: 40 mm Hg (01/18/23 02:20:00) Oxygen Saturation: 94 % (01/18/23 02:20:00) Liters per Minute: 2 L/min (01/17/23 23:58:00) Mode of Delivery (Oxygen): Room air (01/18/23 02:20:00) Early Warning Score: 2 (01/18/23 02:22:37) ? Physical Exam Constitutional: Alert, in no distress. Mental Status: Oriented to person, place and time. Head: Normocephalic. Eyes: Pupils are equal, round and reactive to light. Extraocular muscles intact. Ear, Nose and Throat: Oropharynx clear, mucous membranes moist. Ears and nose without masses, lesions or deformities. Trachea midline. Neck: Supple, Full range of motion. Respiratory: Clear to auscultation. No wheezing, rales or rhonchi. Cardiovascular: S1 S2 regular. No murmurs, rubs or gallops. Gastrointestinal: Abdomen soft, non-tender, non-distended. Normal bowel sounds. No pulsatile mass. No hepatosplenomegaly. Neurologic: Cranial nerves II-XII grossly intact. ??Staccato speech.Power 5/5 x 4 Skin: Left breast??indurated??with surrounding erythema??status post??incision and drainage Musculoskeletal: No cyanosis or clubbing. No gross deformities. Normal range of motion. Psychiatric: Normal mood and affect Assessment/Plan Breast abscess (N61.1):? As noted above she underwent incision??and drainage in the emergency room by the surgical service who will follow Continue broad-spectrum antibiotics??pending??culture results Analgesia as needed ?? Hypertension (I10):? Continue Toprol, Norvasc Hold chlorthalidone this evening and monitor??renal function ?? Tobacco abuse (Z72.0):? Discussed cessation Patient??declined??nicotine patch ?? UTI (urinary tract infection) (N39.0):? Continue cefepime Await urine culture results ?? VTE Prophylaxis:? Lovenox subcu ?VTE Prophylaxis Assessment:??VTE Prophylaxis Ordered ?? Code Status:??Full code Confirmed with patient at bedside ?Order Code Status:??Code Status Ordered ? Patient seen??01/17/2023 ? Histories Allergies Allergies ?(Active and Proposed Allergies Only) Demerol? (Severity: Unknown severity, Onset: Unknown) PHENobarbital? (Severity: Unknown severity, Onset: Unknown) penicillin? (Severity: Unknown severity, Onset: Unknown) sulfADIAZINE? (Severity: Unknown severity, Onset: Unknown) Vicodin? (Severity: Unknown severity, Onset: Unknown) Latex? (Severity: Unknown severity, Onset: Unknown) ? Past Medical History/Problem List Active Problems??(6) Bipolar I disorder Expressive aphasia Left acute arterial ischemic stroke, MCA (middle cerebral artery) Diastolic dysfunction Hypertension Hyperlipidemia Rectocele Repair Total Left and right knee replacement Vaginal Hysterectomy Maloney Urethropexy ? Social History Patient lives with her son Smokes half a pack per day Rare alcohol ? Family History Mother: Blood clot; High blood pressure; Osteoporosis Father: CHF - Congestive heart failure; Diabetes mellitus ? Medications Home Medications Acetaminophen (Tylenol Extra Strength 500 mg oral tablet)?2?tab(s)?1,000?Milligram?By Mouth?Every 6 hours?as needed?as needed for pain Amlodipine (amLODIPine 5 mg oral tablet)?1?tab(s)?5?Milligram?By Mouth?Daily Aspirin (aspirin 81 mg oral tablet, chewable)?81?Milligram?1?tablet?By Mouth?Daily Atorvastatin (Lipitor 80 mg oral tablet)?1?tab(s)?80?Milligram?By Mouth?Daily at bedtime Ibuprofen (ibuprofen 800 mg oral tablet)?800?Milligram?1?tablet?By Mouth?Every 8 hours Lisinopril (lisinopril 20 mg oral tablet)?20?Milligram?1?tablet?By Mouth?Daily Methenamine (methenamine hippurate 1 gm oral tablet)?1?tab(s)?1?gram?By Mouth?Daily Metoprolol (metoprolol 25 mg oral tablet)?75?Milligram?3?tablet?By Mouth?2 times a day Metoprolol (Toprol XL 100 mg oral tablet, extended release)?100?Milligram?1?tablet?By Mouth?Daily Quetiapine (QUEtiapine 50 mg oral tablet)?1?tab(s)?50?Milligram?By Mouth?2 times a day Senna (Senna 8.6 mg oral tablet)?8.6?Milligram?1?tab(s)?By Mouth?Daily at bedtime Tolterodine (tolterodine 4 mg oral capsule, extended release)?1?capsule?4?Milligram?By Mouth?Daily ? Results Recent Labs BLOOD COUNT & DIFF WBC 15.5 k/mm3 (High)?? 01/17/2023 12:46 RBC 4.19 m/mm3 (Low)?? 01/17/2023 12:46 Hgb 12.9 Gm/dL ()?? 01/17/2023 12:46 Hct 38.8 % ()?? 01/17/2023 12:46 MCV 92.6 femtoliters ()?? 01/17/2023 12:46 MCH 30.8 pg ()?? 01/17/2023 12:46 MCHC 33.2 g/dL ()?? 01/17/2023 12:46 Platelet Count 313 k/mm3 ()?? 01/17/2023 12:46 RDW-SD 41.9 femtoliters ()?? 01/17/2023 12:46 MPV 9.5 femtoliters ()?? 01/17/2023 12:46 Nucleated RBC (Automated) 0.0 #/100 WBC'S ()?? 01/17/2023 12:46 Abs. NRBC 0.0 k/mm3 ()?? 01/17/2023 12:46 Abs. Neut 12.5 k/mm3 (High)?? 01/17/2023 12:46 Abs. Lymph 1.8 k/mm3 ()?? 01/17/2023 12:46 Abs. Slope 1.0 k/mm3 (High)?? 01/17/2023 12:46 Abs. Eo 0.0 k/mm3 ()?? 01/17/2023 12:46 Abs. Baso 0.0 k/mm3 ()?? 01/17/2023 12:46 Neut % 81.0 % (High)?? 01/17/2023 12:46 Lymph % 11.5 % (Low)?? 01/17/2023 12:46 Slope % 6.5 % ()?? 01/17/2023 12:46 Eos % 0.2 % ()?? 01/17/2023 12:46 Baso % 0.3 % ()?? 01/17/2023 12:46 Imm Gran 0.5 % ()?? 01/17/2023 12:46 Abs. Imm Gran 0.1 k/mm3 ()?? 01/17/2023 12:46 ?? CHEM GENERAL Sodium 136 mmol/L ()?? 01/17/2023 12:46 Potassium 3.9 mmol/L ()?? 01/17/2023 12:46 Chloride 103 mmol/L ()?? 01/17/2023 12:46 Bicarbonate Level 22 mmol/L ()?? 01/17/2023 12:46 Anion Gap 11 ()?? 01/17/2023 12:46 Glucose Level 130 mg/dL (High)?? 01/17/2023 12:46 BUN 13 mg/dL ()?? 01/17/2023 12:46 Creatinine-Blood 1.2 mg/dL (High)?? 01/17/2023 12:46 Estimated GFR Creatinine 50 ML/MIN/1.73 M2 ()?? 01/17/2023 12:46 Calcium 9.5 mg/dL ()?? 01/17/2023 12:46 Protein, Total 7.3 Gm/dL ()?? 01/17/2023 12:46 Albumin 3.7 Gm/dL ()?? 01/17/2023 12:46 AG Ratio 1.0 ()?? 01/17/2023 12:46 Alkaline Phosphatase 98 units/L ()?? 01/17/2023 12:46 Lipase 28 units/L ()?? 01/17/2023 12:46 AST (SGOT) 19 units/L ()?? 01/17/2023 12:46 ALT (SGPT) 18 units/L ()?? 01/17/2023 12:46 Bilirubin, Total 0.5 mg/dL ()?? 01/17/2023 12:46 Lactate 1.3 mmol/L ()?? 01/17/2023 12:46 ?? HEME OTHER Hold Blue Top SPECIMEN DISCARDED AFTER 4 HOURS. ()?? 01/17/2023 12:46 ?? MISC. CHEMISTRY Hold Green Top SPECIMEN DISCARDED AFTER 1 WEEK ()?? 01/17/2023 12:46 Hold Gel Top SPECIMEN DISCARDED AFTER 1 WEEK ()?? 01/17/2023 12:46 ?? UA/URINALYSIS Appear/Color, Urine DARK YELLOW ()?? 01/17/2023 14:24 Clarity TURBID (Abnormal)?? 01/17/2023 14:24 Specific Jansen, Urine >1.030 (High)?? 01/17/2023 14:24 pH, Urine 5.5 ()?? 01/17/2023 14:24 Albumin, Urine 1+ (Abnormal)?? 01/17/2023 14:24 Glucose, Urine NEGATIVE (N)?? 01/17/2023 14:24 Ketones, Urine TRACE (Abnormal)?? 01/17/2023 14:24 Bilirubin, Urine NEGATIVE (N)?? 01/17/2023 14:24 Hemoglobin, Urine NEGATIVE (N)?? 01/17/2023 14:24 Nitrite, Urine POSITIVE (Abnormal)?? 01/17/2023 14:24 Leukocyte, Urine 3+ (Abnormal)?? 01/17/2023 14:24 Urobilinogen NORMAL mg/dL (N)?? 01/17/2023 14:24 WBC's, Urine 125 /HPF (High)?? 01/17/2023 14:24 RBC's, Urine 1 /HPF ()?? 01/17/2023 14:24 Bacteria HEAVY HPF (Abnormal)?? 01/17/2023 14:24 Squamous Epith 75 /HPF (High)?? 01/17/2023 14:24 Mucus MODERATE /LPF ()?? 01/17/2023 14:24 Hold Urine Culture Testing available 48 hours from time of collection. ()?? 01/17/2023 14:24 ?? URINE OTHER Est Creatinine Clearance 40.77 mL/min ()?? 01/17/2023 13:28 ? Hospital Progress note * Sahara OLIVIER, Henrique Oquendo: PERFORM, MODIFY Event Display: Progress Note Hospital Authored Date: [id number] Patient: ??ARAVIND, ANOOP ? Age:??67 Years?Sex:??Female?:??1955?? Subjective Seen by trauma team Am hall round. Possibly one with laparoscopic cholecystectomy.??Patient reportsfeeling well. Minimal abdominal pain in the left upper quadrant.??Denies nausea, vomiting, fevers, chills, chest pain. has tolerated diet. Physical Exam Vitals & Measurements T:??98?F?? HR:??76??(Peripheral)?? RR:??20?? BP:??115/70?? SpO2:??94%?? HT:??163??cm?? WT:??86.3??kg?? BMI:??32.48?? Physical Exam: Constitutional: No acute distress, awake Cardiovascular: Regular rate and rhythm, +S1/S2, no murmurs, rubs, or gallops, no edema, 2+ dorsalis pedia bilaterally Respiratory: Clear to auscultation bilaterally, no wheezes, rales, rhonchi, or crackles Abdomen: soft, minimally tender, softly distended incisions closed with dermabond. Gastrointestinal: bowel sounds present Genitourinary: no CVA tenderness Musculoskeletal: no calf tenderness Extremities: Left pectoralis skin graft healing appropriately on the medial aspect, lateral aspect with evidence of no graft take. Xeroform Neurological: no loss of sensation bilaterally Lymphatic: no lymphedema or hepatosplenomegaly Assessment/Plan Anoop Cooney is a 67-year-old female who presented with a left chest infection now status post split-thickness skin graft with donor site of right thigh. On physical exam, graft has taken approximately 75%. Lateral aspect with evidence of graft failure, however wound bed is clean. CORNELIO drain removedand fidelia were removed today. Donor site also dry and healing appropriately. Unfortunately she had a US of RUQ with evidence of??Cholelithiasis without acute cholecystitis with CT finding consistent with acute uncomplicated pancreatitis,??in the setting of uptrending T-bili. Patient was taken to the operating room on 02/18/23??laparoscopic cholecystectomy which she tolerated well without intraop erative or postoperative complications.??She is again cleared for discharge??from the surgical point of view. ?? Nutrition consult for diet instructions for low fat diet Trauma surgery to signoff Followup outpaitent 2-3 weeks post discharge. ? Discussed with Dr Yanez Intake and Output Intake and Output Results?? This visit (24 hour periods starting at 07:00 EST)? 02/19/23 *?? 02/18/23?? 02/17/23?? Total Summary?Intake mL?? --?? 3,825?? --?Output mL?? 500?? 2,100?? 750?Fluid Balance ?? -500?? 1,725?? -750?? Intake (2)?Lactated Ringers Injection 1,000 mL mL?? --?? 2,625?? --?Oral Fluids mL?? --?? 1,200?? --?Total?? --?? 3,825?? --?? Output (1)?Urine Voided mL?? 500?? 2,100?? 750?Total?? 500?? 2,100?? 750?? Counts (3)?Oral Fluids mL?? --?? 1,200?? --?Urine Count ?? --?? --?? 1?Urine Voided mL?? 500?? 2,100?? 750? * This column has not completed the indicated time period.?? Labs Last 24 Hours BLOOD COUNT & DIFF ? Event Name?? Event Result?? Date/Time?? WBC 8.4 k/mm3 02/19/23 01:59:00 RBC 3.05 m/mm3??Low 02/19/23 01:59:00 Hgb 8.9 Gm/dL??Low 02/19/23 01:59:00 Hct 28.2 %??Low 02/19/23 01:59:00 MCV 92.5 femtoliters 02/19/23 01:59:00 MCH 29.2 pg 02/19/23 01:59:00 MCHC 31.6 g/dL??Low 02/19/23 01:59:00 Platelet Count 271 k/mm3 02/19/23 01:59:00 MPV 10.5 femtoliters 02/19/23 01:59:00 Nucleated RBC (Automated) 0 #/100 WBC'S 02/19/23 01:59:00 ? CHEM GENERAL ? Event Name?? Event Result?? Date/Time?? Sodium 141 mmol/L 02/19/23 01:59:00 Chloride 106 mmol/L 02/19/23 01:59:00 Bicarbonate Level 24 mmol/L 02/19/23 01:59:00 Anion Gap 11 02/19/23 01:59:00 Glucose Level 118 mg/dL??High 02/19/23 01:59:00 BUN 13 mg/dL 02/19/23 01:59:00 Creatinine-Blood 0.9 mg/dL 02/19/23 01:59:00 Phosphorus 3.5 mg/dL 02/19/23 01:59:00 Magnesium 1.6 mg/dL 02/19/23 01:59:00 Alkaline Phosphatase 289 units/L??High 02/19/23 01:59:00 AST (SGOT) 32 units/L 02/19/23 01:59:00 ALT (SGPT) 68 units/L??High 02/19/23 01:59:00 Bilirubin, Total 0.2 mg/dL 02/19/23 01:59:00 ? * Helder Yanez MD: PERFORM Event Display: Progress Note Hospital Authored Date: I have seen and examined the patient, the above note summarizes my encounter on the recorded date * Ame Jara LPN: PERFORM, SIGN, VERIFY Event Display: Progress Note Hospital Authored Date: Patient: ANOOP COONEY Age: 67 years Sex: Female : 1955 Associated Diagnoses: None Author: Ame Jara LPN Findings Problem Related to Alteration in Integumentary : Alteration in Integumentary/new 02/19/2023 0:00 EST Alteration in Integumentary Related to Mechanical/Surgical trauma Goals & Outcomes, Integumentary Nutritional intake is adequate for metabolic needs, Pt will maintain adequate fluid & nutritional balance, Pt will maintain intact skin integrity, Wound will progress towards healing Interventions, Integumentary Cleanse all wounds with Normal Saline, Encourage & assist pt to change position frequently, Encourage & assist with range of motion exercises, Encourage family participation in pt's care as they are able, Ensure relief modes are on mattress surface & utilized, Increase turning frequency if red or blanched areas appear, Keep bed as flat as tolerated to reduce shearing, Keep linen clean, dry and wrinkle free, Keep skin clean & dry, Maintain sterile technique with dressing changes, Minimize friction, shear and moisture, Monitor reddened areas for continued or increasing reddness, Record extent of impaired skin integrity, Relieve pressure off bony areas, Reposition pt off reddened areas BH Goals/Interventions, Integumentary Yes Integumentary, Problem Start 02/13/2023 8:32 Reviewed plan with, Integumentary Patient Patient Progression, Integumentary Pt progressing according to plan . Nursing Data Vital Signs : VITAL SIGNS SECTION 02/19/2023 4:00 EST Temperature 98 DegF Temperature Route Oral Pulse Rate 76 bpm Respiratory Rate 18 br/min Systolic Blood Pressure 115 mm Hg Diastolic Blood Pressure 70 mm Hg Blood pressure sites Arm, right Oxygen Saturation 94 % Mode of Delivery (Oxygen) Room air 02/19/2023 3:17 EST Early Warning Score 0.00 02/18/2023 23:58 EST Early Warning Score 0.00 02/18/2023 23:56 EST Respiratory Rate 18 br/min 02/18/2023 23:29 EST Early Warning Score 0.00 02/18/2023 21:02 EST Respiratory Rate 18 br/min 02/18/2023 20:33 EST Early Warning Score 0.00 02/18/2023 20:32 EST Respiratory Rate 18 br/min 02/18/2023 19:50 EST Early Warning Score 0.00 02/18/2023 19:00 EST Temperature 98.6 DegF Temperature Route Oral Pulse Rate 82 bpm Respiratory Rate 18 br/min Systolic Blood Pressure 132 mm Hg Diastolic Blood Pressure 70 mm Hg Blood pressure sites Arm, right Oxygen Saturation 98 % Mode of Delivery (Oxygen) Room air . Evaluation Assumed care for patient @1900. A/Ox4. VSS overnight. Pt compliant w/ care and able to make needs known. LSCTA on RA. ABD soft w/ some tenderness when palpating and +BS in all four quadrants. Administered PRN pain medications per MAR orders w/ + effect. Pt continent of bowel and incontinent of urine. Primafit placed and draining CYU. Wound dressings on right thigh, abdomen and left breast are C/D/I. LR infusing @125mL/hr. Pt resting in bed. All appropriate safety measures remain in place. Will continue to frequently round. Plan of care ongoing. See CIS for biophysical and further assessments..... Discharge Information Rehabilitation Discharge : Rehab Discharge Index 02/18/2023 15:32 EST Cane: distance 20-50 * Linda Gudino MD: PERFORM Event Display: Progress Note Hospital Authored Date: Patient: ??ARAVIND, ANOOP ? Age:??67 Years?Sex:??Female?:??1955?? Subjective Postop day 1 of laparoscopic cholecystectomy and bilateral transversus abdominis and left rectus sheath block with 0.25% Marcaine. Overnight patient reported abdominal pain which was resolved with oxycodone. ?? Vitals reviewed, unremarkable.?? Laboratory results hemoglobin stable at 9.8, WBC normalized.?? Downtrending liver enzymes and normalized total bilirubin today.? Patient seen and examined at bedside. Reports left upper quadrant abdominal pain radiating to epigastric region, resolved after IV Dilaudid. No Nausea/Vomitting. Passing gas. On examination, soft, distended. Started IV LR at 125 cc/hr. Discharge tomorrow afternoon. Review of Systems ?? All other systems were reviewed and are negative except for the ones mentioned above. Past Medical History Active Problems??(6) Bipolar I disorder Encephalopathy Encephalopathy acute Expressive aphasia Hypertensive urgency Left acute arterial ischemic stroke, MCA (middle cerebral artery) ? Objective Vital Signs?? Temperature: 98.1 DegF (02/18/23 07:30:00) Temperature Route: Oral (02/18/23 07:30:00) Normothermic Measures: Warming blanket (02/17/23 17:15:00) Pulse Rate: 83 bpm (02/18/23 07:51:00) Heart Rate Monitored: 70 bpm (02/17/23 18:15:00) Respiratory Rate: 18 br/min (02/18/23 13:00:00) Systolic Blood Pressure:??147 mm Hg??High (02/18/23 07:51:00) Systolic Blood Pressure:??147 mm Hg??High (02/18/23 07:51:00) Diastolic Blood Pressure: 72 mm Hg (02/18/23 07:51:00) Diastolic Blood Pressure: 72 mm Hg (02/18/23 07:51:00) Blood pressure sites: Arm, right (02/18/23 07:30:00) Mean Arterial Pressure: 97 mm Hg (02/18/23 07:30:00) Pulse Pressure: 75 mm Hg (02/18/23 07:30:00) Oxygen Saturation: 94 % (02/18/23 07:30:00) Liters per Minute: 6 L/min (02/17/23 17:15:00) Mode of Delivery (Oxygen): Room air (02/18/23 07:30:00) Early Warning Score: 2 (02/18/23 13:06:17) ? Intake/Output? 01/17 19:34 02/18 07:00 02/17 07:00 02/16 07:00 02/15 07:00 ?? 02/18 14:32 02/18 14:32 02/18 06:59 02/17 06:59 02/16 06:59 Intake ?21560 ?0 ?0 ? 3458 ? 1450 Output ?08512 ? 1000 ?750 ? 1000 ?900 Net Total ?-6869 ?-1000 ? -750 ? 2458 ?550 ? Urine Count ? 28 ?0 ?1 ?4 ?0 ? Physical Exam General: No acute distress HEENT: EOMI. CV: Regular rate and rhythm. No murmurs, gallops, rubs Respiratory: All yeboah clear to auscultation bilaterally. No wheezes, rales, rhonchi GI: Soft, nontender. Bowel sounds noted. Distnded. LUQ tenderness on palpation : No suprapubic tenderness Extremities: No lower extremity edema Neuro: AAO x3.??Moves all extremities spontaneously. 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200 mg, By Mouth, 3 times a day Dextromethorphan-Guaifenesin 20 mg-200 mg/10 mL Liqu UD (GuaiFENEsin /Dextromethorphan Liquid) ??10mL, By Mouth, Every 6 hours Docusate Sodium 100 mg Capsule (Docusate Sodium Capsule) ??100 mg 1 capsule, By Mouth, 2 times a day HYDROmorphone 1 mg/mL Inj Syringe (Dilaudid Inj) ??1 mg 1 mL, IV Push Slowly, Every 4 hours Melatonin 3 mg Tablet (Melatonin Tablet) ??3 mg, By Mouth, Daily at bedtime NaCl 0.9% Flush 3ml (NaCL 0.9% Flush) ??3 mL, IV Push, Every 8 hours Ondansetron 2mg/mL Inj (2mL Vial) (Zofran Inj) ??4 mg, IV Push, Every 6 hours Ondansetron 4 mg ODT (Zofran ODT 4 mg oral tablet, disintegrating) ??4 mg, By Mouth, Every 6 hours OxyCODONE 5 mg IR Tablet (oxyCODONE 5 mg oral tablet) ??5 mg, By Mouth, Every 6 hours Senna Tablet ??8.6 mg 1 tablet, By Mouth, 2 times a day ? 72 Hour Antibiotic History Stopped Antibiotics Stop Date/Time Last Administered First Administered Metronidazole??500 mg, 100 mL, 100 mL/hr, IVPB, Every 8 hours 02/16/2023 11:56 02/16/2023 09:13 02/15/2023 17:50 Cefepime??2,000 mg, 100 mL/hr, IVPB, Every 8 hours 02/16/2023 11:55 02/16/2023 04:53 02/15/2023 20:52 ? Results Recent Labs BLOOD COUNT & DIFF WBC 8.2 k/mm3 ()?? 02/18/2023 05:33 RBC 3.36 m/mm3 (Low)?? 02/18/2023 05:33 Hgb 9.8 Gm/dL (Low)?? 02/18/2023 05:33 Hct 30.4 % (Low)?? 02/18/2023 05:33 MCV 90.5 femtoliters ()?? 02/18/2023 05:33 MCH 29.2 pg ()?? 02/18/2023 05:33 MCHC 32.2 g/dL (Low)?? 02/18/2023 05:33 Platelet Count 346 k/mm3 ()?? 02/18/2023 05:33 RDW-SD 42.5 femtoliters ()?? 02/18/2023 05:33 MPV 9.8 femtoliters ()?? 02/18/2023 05:33 Nucleated RBC (Automated) 0.0 #/100 WBC'S ()?? 02/18/2023 05:33 Abs. NRBC 0.0 k/mm3 ()?? 02/18/2023 05:33 Abs. Neut 5.2 k/mm3 ()?? 02/18/2023 05:33 Abs. Lymph 1.9 k/mm3 ()?? 02/18/2023 05:33 Abs. Slope 0.6 k/mm3 ()?? 02/18/2023 05:33 Abs. Eo 0.4 k/mm3 ()?? 02/18/2023 05:33 Abs. Baso 0.0 k/mm3 ()?? 02/18/2023 05:33 Neut % 63.7 % ()?? 02/18/2023 05:33 Lymph % 22.9 % ()?? 02/18/2023 05:33 Slope % 7.7 % ()?? 02/18/2023 05:33 Eos % 5.0 % ()?? 02/18/2023 05:33 Baso % 0.5 % ()?? 02/18/2023 05:33 Imm Gran 0.2 % ()?? 02/18/2023 05:33 Abs. Imm Gran 0.0 k/mm3 ()?? 02/18/2023 05:33 ?? CHEM GENERAL Sodium 141 mmol/L ()?? 02/18/2023 05:33 Potassium 4.2 mmol/L ()?? 02/18/2023 05:33 Chloride 106 mmol/L ()?? 02/18/2023 05:33 Bicarbonate Level 25 mmol/L ()?? 02/18/2023 05:33 Anion Gap 10 ()?? 02/18/2023 05:33 Glucose Level 89 mg/dL ()?? 02/18/2023 05:33 BUN 10 mg/dL ()?? 02/18/2023 05:33 Creatinine-Blood 0.9 mg/dL ()?? 02/18/2023 05:33 Estimated GFR Creatinine 74 ML/MIN/1.73 M2 ()?? 02/18/2023 05:33 Calcium 8.5 mg/dL (Low)?? 02/18/2023 05:33 Phosphorus 4.0 mg/dL ()?? 02/18/2023 05:33 Magnesium 1.8 mg/dL ()?? 02/18/2023 05:33 Protein, Total 5.6 Gm/dL (Low)?? 02/18/2023 05:33 Albumin 3.1 Gm/dL (Low)?? 02/18/2023 05:33 AG Ratio 1.2 ()?? 02/18/2023 05:33 Alkaline Phosphatase 351 units/L (High)?? 02/18/2023 05:33 AST (SGOT) 43 units/L (High)?? 02/18/2023 05:33 ALT (SGPT) 105 units/L (High)?? 02/18/2023 05:33 Bilirubin, Total 0.4 mg/dL ()?? 02/18/2023 05:33 Bilirubin, Direct 0.3 mg/dL ()?? 02/17/2023 01:03 Bilirubin, Indirect 0.3 mg/dL ()?? 02/17/2023 01:03 ?? URINE OTHER Est Creatinine Clearance 53.48 mL/min ()?? 02/18/2023 06:42 ? Assessment/Plan Assessment:?? 67 year old female with a past medical history of bipolar 1 disorder, expressive aphasia post L MCAstroke, HTN, and HLD who presented with one week history of left breast swelling and redness found to have a breast abscess. Breast wound cultures grew strep intermedius and staph epidermidis. The breast abscess has been treated with incision and drainage with surgery on 01/17, further washout and debridement 01/19, mastectomy 01/24 due to necrotizing fasciitis, wound VAC change and washout 01/26. Washout and further debridement extending to axilla 01/27. Initial plan for washout and possible closure eventually. On replacing wound vac, patient found to be healing well 02/02. Patient s/p skin flap procedure in OR 02/04 with trauma surgery with CORNELIO drain placed. Patient is being followed by infectious disease. breast surgery, and trauma surgery. Drain removed without issue on 02/09, however patient had significant drainage from wound site afterwards. On reevaluation, general surgery recommended wound changes twice daily to maintain appropriate healing. Conversation with patient, it would be unrealistic for her son to help her with wound changes twice daily and case management was unable to find services to come twice daily that would be covered by patient concerns. Joint decision-making to plan for rehab/SNF placement near patient's home in [place] to provide appropriate wound care. ??Patient's??course was complicated??as she was diagnosed with gallstone pancreatitis??and is undergoing lap cholecystectomy on 02/17.?Due to to this complication??she lost the placement at [place].?Case management on board??and pending rehab placement.? Gallstone pancreatitis S/P Lap Cholecystectomy POD-1 Underwent laparoscopic cholecystectomy and bilateral transversus abdominis and left rectus sheath block with 0.25% Marcaine on 02/18. Plan: -Increased Oxy to 7.5mg Q6 for pain control -Start IV LR 125cc/hr ?? Resolved issues Necrotizing fasciitis and breast abscess:Patient with 1 week history of left breast abscess. S/P incision and drainage on 01/17. 01/19 surgical drainage and washout. 01/24 left breast mastectomy and chest wall debridement. Wound VAC placed 01/24. Wound VAC removed with washout 01/26 with concern for spread of necrotizing fasciitis along inferior and superior chest with spread towards abdomen. Washout and further debridement including axilla 01/27. Wound vac replaced 01/31 and OR differed Wound cultures grew Staph epidermidis and staph intermedius.?? She received cefazolin 2 g, cefepime, metronidazole,??ceftriaxone 2 g 5-day course, vancomycin 1250 mg daily??from 01/19 to 02/03. ??Thentransition to ertapenem 1 g daily from 01/27 to 02/02. She underwent skin graft on 02/04. ??Plan: ??-WTD dressing BID to left breast ??-Tylenol 650mg Q4 PRN ??-Dilaudid 1mg Q4 PRN ??-Zofran for nausea DAVONTE-resolved Metabolic encephalopathy (G93.41): -resolved, last occurrence 01/28 Hypotension (I95.9): -resolved, last occurrence 01/28 UTI (urinary tract infection) (N39.0):??resolved ??On home Methenamine 1g for chronic UTI suppression. Also on home Tolterodine 4mg. Remained asymptomatic. Patient had already been on adequate antibiotics. ??Micro: ?UA 01/17: +nitrite, 3+ LE, 125 WBC, heavy bacteria ?? Chronic stable medical conditions Hypertension:-Continue amlodipine 5 mg,??Toprol 100 mg. ??Stop lisinopril Bipolar 1 disorder (F31.9):??-Continue home Quetiapine 50 mg Chronic ischemic left MCA stroke (I69.30):??-Continue home ASA 81mg daily Hyperlipemia (E78.5):??-Continue home atorvastatin 80 mg daily. Tobacco abuse (Z72.0):??Per patient, quit smoking 1 week prior to admission. Had non-productive, stable cough since cessation, improved over course of hospitalization. Patient declined nicotine replacement Cough resolved during admission. Continue guaifenesin/dextromethorphan PRN for cough ? Quality Measures DVT: lovanox Diet:??Low fat diet Code Status: Full Code Disposition:??[facility] tomorrow AM ?? Patient was seen and discussed with ??Josh ?Linda Mohamed.M.D. PGY-2 Internal Medicine??Resident ? * Josh OLIVIER, Randa Moore: PERFORM Event Display: Progress Note Hospital Authored Date: Patient seen and discussed with Dr. Gudino. Agree with findings, assessment and plan in this progress note. Note * Rupali Snider RN: PERFORM Event Display: Discharge/Transfer Note Hospital Authored Date: Nursing Discharge Note Entered On: 02/19/2023 9:55 EST Performed On: 02/19/2023 9:55 EST by Rupali Snider RN Nursing Discharge Note 2 Discharge Time : 02/19/2023 12:12 EST Rupali Snider RN - 02/19/2023 12:05 EST Discharge Level of Care at Discharge : [facility] facility Discharge Nursing Homes/Rehab Facilities : [facility] Patient Left Unit Via : Ambulance Patient Accompanied Off Unit with : Ambulance/[facility] Personnel Handover Given to Transport Personnel : Yes DC Instructions Provided & Signed by Pt : Yes Patient Understands D/C Instructions : Yes Patient Instructions Discharge Signed : Yes Did Pt have Specialty Bed or Wound Vac : No Rupali Snider RN - 02/19/2023 9:55 EST * Linda Gudino MD: PERFORM Event Display: Discharge/Transfer Note Hospital Authored Date: Patient: ??ARAVIND, ANOOP ? Age:??67 Years?Sex:??Female?:??1955?? Patient Information Discharge Location: [facility]4 Primary Care Physician: Sera OLIVIER , Valorie Cassidy Admit Date/Time: 01/17/23 19:34 Discharge Disposition Discharge Disposition: Custodial Facility/Rehab Discharge Diagnosis Bipolar 1 disorder (F31.9) Breast abscess (N61.1) Cholelithiases (K80.20) Chronic ischemic left MCA stroke (I69.30) Creatinine elevation (R79.89) Hyperlipemia (E78.5) Hypertension (I10) Hypotension (I95.9) Metabolic encephalopathy (G93.41) Necrotizing fasciitis (M72.6) Pancreatitis (K85.90) S/P cholecystectomy (Z90.49) Tobacco abuse (Z72.0) UTI (urinary tract infection) (N39.0) UTI symptoms (R39.9) ?? _ Discharge Medications Acetaminophen (Tylenol Extra Strength 500 mg oral tablet)?2?tab(s)?1,000?Milligram?By Mouth?Every 6 hours?as needed?as needed for pain Amlodipine (amLODIPine 5 mg oral tablet)?1?tab(s)?5?Milligram?By Mouth?Daily Aspirin (aspirin 81 mg oral tablet, chewable)?81?Milligram?1?tablet?By Mouth?Daily Atorvastatin (Lipitor 80 mg oral tablet)?1?tab(s)?80?Milligram?By Mouth?Daily at bedtime Durable Medical Equipment (Home Blood Pressure Monitor)?See Instructions?check BP daily, diagnosis: Stroke with hypertension Ibuprofen (ibuprofen 800 mg oral tablet)?800?Milligram?1?tablet?By Mouth?Every 8 hours Lisinopril (lisinopril 20 mg oral tablet)?20?Milligram?1?tablet?By Mouth?Daily Methenamine (methenamine hippurate 1 gm oral tablet)?1?tab(s)?1?gram?By Mouth?Daily Metoprolol (Toprol XL 100 mg oral tablet, extended release)?100?Milligram?1?tablet?By Mouth?Daily Oxycodone (oxyCODONE 5 mg oral tablet)?7.5?Milligram?By Mouth?Every 6 hours?as needed?for 3?Days?Pain , Severe Quetiapine (QUEtiapine 50 mg oral tablet)?1?tab(s)?50?Milligram?By Mouth?2 times a day Senna (Senna 8.6 mg oral tablet)?8.6?Milligram?1?tab(s)?By Mouth?Daily at bedtime Tolterodine (tolterodine 4 mg oral capsule, extended release)?1?capsule?4?Milligram?By Mouth?Daily ?? Medications Started Oxycodone (oxyCODONE 5 mg oral tablet)?7.5?Milligram?By Mouth?Every 6 hours?as needed?for 3?Days?Pain , Severe Allergies Allergies ?(Active and Proposed Allergies Only) Demerol? (Severity: Unknown severity, Onset: Unknown) PHENobarbital? (Severity: Unknown severity, Onset: Unknown) penicillin? (Severity: Unknown severity, Onset: Unknown) sulfADIAZINE? (Severity: Unknown severity, Onset: Unknown) Vicodin? (Severity: Unknown severity, Onset: Unknown) Latex? (Severity: Unknown severity, Onset: Unknown) ? PCP Follow-Up/Heads-Up -??please follow-up with blood work in 1 week, to monitor hemoglobin, liver enzymes. -Patient is being discharged on oxycodone 7.5 mg every 6 as needed for severe pain??for 3 days. Future Appointments Tuesday 9:00 AM EST ?? With: Helder Yanez MD Where: [facility] [address] [place] [address]- Status: Pending Tuesday 10:20 AM EST ?? With: Helder Yanez MD Where: [facility] [address] [place] [address]- Status: Pending Hospital Course Assessment:?? 67 year old female with a past medical history of bipolar 1 disorder, expressive aphasia post L MCAstroke, HTN, and HLD who presented with one week history of left breast swelling and redness found to have a breast abscess. Breast wound cultures grew strep intermedius and staph epidermidis. The breast abscess has been treated with incision and drainage with surgery on 01/17, further washout and debridement 01/19, mastectomy 01/24 due to necrotizing fasciitis, wound VAC change and washout 01/26. Washout and further debridement extending to axilla 01/27. Initial plan for washout and possible closure eventually. On replacing wound vac, patient found to be healing well 02/02. Patient s/p skin flap procedure in OR 02/04 with trauma surgery with CORNELIO drain placed. Patient is being followed by infectious disease. breast surgery, and trauma surgery. Drain removed without issue on 02/09, however patient had significant drainage from wound site afterwards. On reevaluation, general surgery recommended wound changes twice daily to maintain appropriate healing.??Patient's??course was complicated??as she was diagnosed with gallstone pancreatitis??and is undergoing lap cholecystectomy on 02/17, patient is postop day 2??and pain controlled with Oxy 7.5 mg every 6. Conversation with patient, it would be unrealistic for her son to help her with wound changes twice daily and case management was unable to find services to come twice daily that would be covered by patient concerns. Joint decision-making to plan for rehab/SNF placement near patient's home in [place] to provide appropriate wound care. ??Patient is being discharged [facility]. ?? Gallstone pancreatitis S/P Lap Cholecystectomy POD-2 Underwent laparoscopic cholecystectomy and bilateral transversus abdominis and left rectus sheath block with 0.25% Marcaine on 02/18. Recommendation -Continue oxycodone 7.5 mg every 6 as needed??for severe pain Necrotizing fasciitis and breast abscess:Patient with 1 week history of left breast abscess. S/P incision and drainage on 01/17. 01/19 surgical drainage and washout. 01/24 left breast mastectomy and chest wall debridement. Wound VAC placed 01/24. Wound VAC removed with washout 01/26 with concern for spread of necrotizing fasciitis along inferior and superior chest with spread towards abdomen. Washout and further debridement including axilla 01/27. Wound vac replaced 01/31 and OR differed Wound cultures grew Staph epidermidis and staph intermedius.?? She received cefazolin 2 g, cefepime, metronidazole,??ceftriaxone 2 g 5-day course, vancomycin 1250 mg daily??from 01/19 to 02/03. ??Thentransition to ertapenem 1 g daily from 01/27 to 02/02. She underwent skin graft on 02/04. Recommendation: ??-WTD dressing BID to left breast ??-Tylenol 650mg Q4 PRN ??-Dilaudid 1mg Q4 PRN ??-Zofran for nausea DAVONTE-resolved Metabolic encephalopathy (G93.41): -resolved, last occurrence 01/28 Hypotension (I95.9): -resolved, last occurrence 01/28 UTI (urinary tract infection) (N39.0):??resolved ??On home Methenamine 1g for chronic UTI suppression. Also on home Tolterodine 4mg. Remained asymptomatic. Patient had already been on adequate antibiotics. ??Micro: ?UA 01/17: +nitrite, 3+ LE, 125 WBC, heavy bacteria ?? Chronic stable medical conditions Hypertension:-Continue amlodipine 5 mg,??Toprol 100 mg. ??Stop lisinopril Bipolar 1 disorder (F31.9):??-Continue home Quetiapine 50 mg Chronic ischemic left MCA stroke (I69.30):??-Continue home ASA 81mg daily Hyperlipemia (E78.5):??-Continue home atorvastatin 80 mg daily. Tobacco abuse (Z72.0):??Per patient, quit smoking 1 week prior to admission. Had non-productive, stable cough since cessation, improved over course of hospitalization. Patient declined nicotine replacement Cough resolved during admission. Continue guaifenesin/dextromethorphan PRN for cough ? DVT prophylaxis provided with Lovenox. ??Patient is a full code review of with the patient. ??Patient is on low-fat diet.?? Objective Measurements?? Height: 163 cm (02/19/23) Weight: 86.3 kg (02/17/23) Dry Weight: 86.3 kg (02/04/23) Body Mass Index:??32.48 kg/m2??Critical (02/17/23) ? Vital Signs?? Temperature: 98.3 DegF (02/19/23 09:06:00) Temperature Route: Axillary (02/19/23 09:06:00) Pulse Rate: 76 bpm (02/19/23 04:00:00) Respiratory Rate: 20 br/min (02/19/23 06:42:00) Systolic Blood Pressure: 115 mm Hg (02/19/23 04:00:00) Diastolic Blood Pressure: 70 mm Hg (02/19/23 04:00:00) Blood pressure sites: Arm, right (02/19/23 04:00:00) Oxygen Saturation: 94 % (02/19/23 04:00:00) Mode of Delivery (Oxygen): Room air (02/19/23 04:00:00) Early Warning Score: 2 (02/19/23 09:06:35) ? . Physical Exam General: No acute distress HEENT: EOMI. CV: Regular rate and rhythm. No murmurs, gallops, rubs Respiratory: All yeboah clear to auscultation bilaterally. No wheezes, rales, rhonchi GI: Soft, nontender. Bowel sounds noted : No suprapubic tenderness Extremities: No lower extremity edema Neuro: AAO x3.??Moves all extremities spontaneously. Sensation intact Psych: Affect appropriate Skin: No lesions, wounds, rashes Surgical Procedures Washout Breast 01/19/2023 12:42 Debridement with Wound Vac Placement/Katelyn 01/24/2023 10:26 Mastectomy Unilateral 01/24/2023 10:26 Debridement with Wound Vac Placement/Katelyn 01/26/2023 15:30 Debridement with Wound Vac Placement/Katelyn 01/27/2023 16:08 Skin Graft Split Thickness 02/04/2023 08:29 Cholecystectomy Laparoscopic 02/17/2023 15:40 Pending Results Add On Lab Order ordered on 02/15/2023 Fungal Culture, Nonrespiratory ordered on 01/24/2023 Pathology Tissue Request ordered on 02/17/2023 Follow-Up Appointments Added Follow Up ?Time Frame ?Comments Valorie Zamora MD?1 week: call to discuss follow up visit Helder Yanez MD?03/08/2023 09:00?Skin graft and cholecystectomy follow-up Trauma Surgery?1 to 2 weeks?You will be??called with appointment schedule within 2 weeks at trauma surgery clinic Valorie Zamora MD?1 week: call to discuss follow up visit Patient Instructions You were admitted to [facility]??for an abscess on your breast. Unfortunately, you got an infection in that area called Necrotizing Fasciitis. Due to that, you required frequent drainage procedures by surgery and antibiotics??to make sure your infection was fully treated. Ultimately, you also got a graft procedure over the wound.??You were monitored closely to make sure your remained medically stable while your body healed. When your drain was removed, you were prepared for discharge. The wound though would require??twice daily changes, so you were planned for discharge to a facility near your home that would be open to your insurance.?? Please continue your pain management, oxycodone 5mg as needed every 6 hours. Follow up with your PCP and trauma surgery.?? Your wound will need to be changed 2x daily while you heal. Post Discharge Care Diet: ??Low Fat 50 Gram Non Cardiac Diet ?? Activity: ??Ambulate with assistance 3 times a day unless otherwise specified ?? Wound Care: ??Wound Site: Left chest wall Skin Care: Xeroform Dressing: Dry Sterile Dressing Slowlyremove xeroform from skin graft and cover with abd pads Daily Yes ?? Code Status: ??Full Resuscitation ?? Discharge ?Today, 02/19/23 9:38:00 EST Home Health Face to Face *Denotes mandatory yeboah ?? *I certify that this patient is under my care and that I or an allowed non- physician working with me had a face to face encounter with the patient on this date:??02/19/2023 09:48 ?? *The encounter with the patient was in whole, or in part, for the following medical condition, which is the primary diagnosis(es) for home health care:??Bipolar 1 disorder (F31.9) Breast abscess (N61.1) Cholelithiases (K80.20) Chronic ischemic left MCA stroke (I69.30) Creatinine elevation (R79.89) Hyperlipemia (E78.5) Hypertension (I10) Hypotension (I95.9) Metabolic encephalopathy (G93.41) Necrotizing fasciitis (M72.6) Pancreatitis (K85.90) S/P cholecystectomy (Z90.49) Tobacco abuse (Z72.0) UTI (urinary tract infection) (N39.0) UTI symptoms (R39.9) ? *Select the indications for the discipline/s that are being arranged for this patient. Nursing (select all that apply): [_] None [_x] Medication management (reconciliation, teaching)?? [x_] Chronic disease management?? [_x] Wound care and treatment?? [x_] Home safety evaluation [_] Administer SQ/IM/IV medications?? [_] Cath care?? [_] Drain care?? [_] Trach or GT care?? Other _ Occupation Therapy (select all that apply): [_] None [_] ADL Management [_] Fall prevention training [_] Energy conservation [_] Cognitive training Other _ Physical Therapy (select all that apply): [_] None [x_] Functional mobility training [_x] Home exercise program to strengthen [_x] Increase ROM?? [_x] Falls prevention training [_x] Home maintenance program for chronic disease Other _ Speech Therapy (select all that apply): [_] None [_] Swallow evaluation and training [_] Speech and language training [_] Cognitive training to process, organize, and/or recall information Other _ ? *Homebound due to (select all that apply): [x_] Inability to leave home without assistance/supervision [_] Inability to ambulate without assistance [_]x Pain [_x] Decreased strength and endurance [_x] Unsteady gait [_x] Severe SOB and fatigue [_] Impaired transfers [_] Inability to negotiate stairs [_] Limited weight bearing [_] Mental status change? *Physician Signature:??Linda Ospina ?? *By signing this, I certify that I have personally evaluated the patient and agree with the findings and recommendations as documented above. ? F Results Discharge Labs BLOOD COUNT & DIFF WBC 8.4 k/mm3 ()?? 02/19/2023 01:59 RBC 3.05 m/mm3 (Low)?? 02/19/2023 01:59 Hgb 8.9 Gm/dL (Low)?? 02/19/2023 01:59 Hct 28.2 % (Low)?? 02/19/2023 01:59 MCV 92.5 femtoliters ()?? 02/19/2023 01:59 MCH 29.2 pg ()?? 02/19/2023 01:59 MCHC 31.6 g/dL (Low)?? 02/19/2023 01:59 Platelet Count 271 k/mm3 ()?? 02/19/2023 01:59 RDW-SD 43.8 femtoliters ()?? 02/19/2023 01:59 MPV 10.5 femtoliters ()?? 02/19/2023 01:59 Nucleated RBC (Automated) 0.0 #/100 WBC'S ()?? 02/19/2023 01:59 Abs. NRBC 0.0 k/mm3 ()?? 02/19/2023 01:59 Abs. Neut 4.9 k/mm3 ()?? 02/19/2023 01:59 Abs. Lymph 1.9 k/mm3 ()?? 02/19/2023 01:59 Abs. Slope 0.7 k/mm3 ()?? 02/19/2023 01:59 Abs. Eo 0.8 k/mm3 (High)?? 02/19/2023 01:59 Abs. Baso 0.0 k/mm3 ()?? 02/19/2023 01:59 Neut % 58.8 % ()?? 02/19/2023 01:59 Lymph % 22.8 % ()?? 02/19/2023 01:59 Slope % 7.9 % ()?? 02/19/2023 01:59 Eos % 9.6 % (High)?? 02/19/2023 01:59 Baso % 0.5 % ()?? 02/19/2023 01:59 Imm Gran 0.4 % ()?? 02/19/2023 01:59 Abs. Imm Gran 0.0 k/mm3 ()?? 02/19/2023 01:59 ?? CHEM GENERAL Sodium 141 mmol/L ()?? 02/19/2023 01:59 Potassium 4.4 mmol/L ()?? 02/19/2023 01:59 Chloride 106 mmol/L ()?? 02/19/2023 01:59 Bicarbonate Level 24 mmol/L ()?? 02/19/2023 01:59 Anion Gap 11 ()?? 02/19/2023 01:59 Glucose Level 118 mg/dL (High)?? 02/19/2023 01:59 Glucose, POC 172 mg/dL (High)?? 02/01/2023 19:40 Hemoglobin A1C (Monitoring) 5.9 % (High)?? 01/19/2023 01:16 BUN 13 mg/dL ()?? 02/19/2023 01:59 Creatinine-Blood 0.9 mg/dL ()?? 02/19/2023 01:59 Estimated GFR Creatinine 76 ML/MIN/1.73 M2 ()?? 02/19/2023 01:59 Calcium 8.4 mg/dL (Low)?? 02/19/2023 01:59 Calcium, Ionized pH Corrected 1.20 mmol/L ()?? 01/28/2023 18:10 Phosphorus 3.5 mg/dL ()?? 02/19/2023 01:59 Magnesium 1.6 mg/dL ()?? 02/19/2023 01:59 Protein, Total 5.3 Gm/dL (Low)?? 02/19/2023 01:59 Albumin 2.9 Gm/dL (Low)?? 02/19/2023 01:59 AG Ratio 1.2 ()?? 02/19/2023 01:59 Alkaline Phosphatase 289 units/L (High)?? 02/19/2023 01:59 Amylase 1172 units/L (High)?? 02/15/2023 13:27 Lipase 2691 units/L (High)?? 02/16/2023 01:12 AST (SGOT) 32 units/L ()?? 02/19/2023 01:59 ALT (SGPT) 68 units/L (High)?? 02/19/2023 01:59 Bilirubin, Total 0.2 mg/dL ()?? 02/19/2023 01:59 Bilirubin, Direct 0.3 mg/dL ()?? 02/17/2023 01:03 Bilirubin, Indirect 0.3 mg/dL ()?? 02/17/2023 01:03 Lactate 1.3 mmol/L ()?? 01/27/2023 10:18 ? SEROLOGY INF DISEASE HIV 4th Generation Ab-Ag Result NEGATIVE (N)?? 01/27/2023 10:18 ? TOXICOLOGY/TDM Vancomycin Level, Trough 12.1 mg/L ()?? 01/31/2023 20:42 ? URINE OTHER Est Creatinine Clearance 53.48 mL/min ()?? 02/18/2023 06:42 ? Blood Glucose Trend Glucose Level:??118 mg/dL??High (02/19/23 01:59:00) ? Updated son, all questions answered in detail ?? Patient was seen and discussed with ??Gagandeep ?Linda Ospina PGY-2 Internal Medicine??Resident ?? * Stephanie Oneal RN: PERFORM, SIGN, VERIFY Event Display: Case Management Discharge Plan Authored Date: Patient: ANOOP COONEY Age: 67 years Sex: Female : 1955 Associated Diagnoses: None Author: Stephanie Oneal RN Discharge Plan Case Management Discharge Plan : Case Management Discharge Plan Data 02/19/2023 8:59 EST Discharge Level of Care at Discharge [facility] facility [facility]charge [facility] Transportation Arranged [facility] January Jimenez [facility] [id number] [phone] Discharge Arranged Transport Date/Time 02/19/2023 12:00 Mode of Transportation Arranged Ambulance [facility] Division Chair # Service Categories #1 Occupational Therapy, Physical Therapy, Custodial Service Comments #1 You are being discharged today to [facility] at [address] You will go at noon by ambulance. * Tylor SUTHERLAND, Rupali: PERFORM Event Display: Patient Education/Instruction Authored Date: [id number] Inpatient Adult Discharge Instructions [address] [address] Name: ANOOP COONEY : 1955 Visit: 01/17/2023 19:34:00 Current Date: 02/19/2023 09:55 Account: [id number] Inpatient Adult Discharge Instructions We would like to thank you for allowing us to assist you with your healthcare needs. The following includes patient education materials and information regarding your injury/illness. Our entire staffstrives to provide an excellent experience for our patients and their families. PLEASE ENSURE YOU FOLLOW-UP PER THE INSTRUCTIONS BELOW! ?? YOUR OPINION IS IMPORTANT TO US! Please complete the survey you may receive by mail or email. Your feedback will be used to make improvements to the healthcare experiences of our patients and their families. Surveys are administered by [employer] ?? If further treatment with your primary care physician or another doctor is recommended, it is important for you to keep the appointment. Call your primary care physician or return to the Emergency Department immediately if your condition worsens, fails to improve, or new symptoms develop. If you need to find a doctor, you can call [facility] [employer] for a referral at [phone] or toll free at [phone]) or log in to [email or web address].. ?? [facility], in keeping with [facility] guidance, no longer requires face masks for staff, patientsor visitors in most situations. Similiar to time spent indoors at other locations, there is the chance that you were exposed to repiratory viruses during your time with us (such as flu or COVID-19). If you develop symptoms concerning for a viral respiratory infection, please seek testing (and treatment if indicated) from your medical provider or home test kit. ?? You can view and manage your care through the patient portal or by using a health care keisha of your choosing. [employer] is a website that allows you to securely view your medical information including your hospital discharge summary, office visit summaries, medications and follow-up visits. You can also request appointments, renew medications, and request access to your medical information using a health care keisha of your choosing, or just ask a question. You can enroll at [email or web address] or register during your next office visit. You have been discharged from [facility], Patient Care Unit: W4. If you have any questions regarding these instructions after you leave, please call us and we will be happy to assist you. [facility] Your Care Team Attending Physician Gagandeep OLIVIER, Stefanie Consulting Providers Adi OLIVIER, Thomas; Kadi OLIVIER, Alden A; Wilber OLIVIER, Penny Buenrostro; Deanne Rodriguez DO; Lance OLIVIER, Som; Ion OLIVIER, Gallo Aviles; Gregg Steiner DO; Gregg Monet DO; Rebeka OLIVIER, Dalton; Johnathan Villeda DO Discharging Providers Terese OLIVIER, Linda Reason for Admission coming from [facility] for ?abscess on L breast. sent here for surgical removal. denies fevers. Your Diagnosis Breast abscess Hypertension Tobacco abuse UTI symptoms UTI (urinary tract infection) Hyperlipemia Bipolar 1 disorder Chronic ischemic left MCA stroke Necrotizing fasciitis Necrotizing fasciitis Hypotension Metabolic encephalopathy Creatinine elevation Cholelithiases Pancreatitis S/P cholecystectomy Tests Performed Below is a partial list of the tests performed during your hospitalization. You may have had other tests and procedures not included in this list. Please discuss all test results with your provider. [id number] Amylase Basic Metabolic Panel Bilirubin Total + Direct BUN Calcium Ionized CBC CBC w/ Differential Comprehensive Metabolic Panel Creatinine Electrolytes Glucose Level GLUCOSE POC HEMOGLOBIN A1C HIV Ab-Ag 4th Generation Ionized Calcium Lactate Level Lipase Lytes Magnesium Level Phosphorus Level Vancomycin Trough CT Abd/Pelvis W/ IV Contrast Only CXR US RUQ Primary Care Provider Sera OLIVIER , Valorie Cassidy Advance Directive Health Care Proxy on File Yes - Health Care Proxy Discharge Vitals Temperature: 98.3 DegF Height: 163 cm Pulse Rate: 76 bpm Weight: 86.3 kg Respiratory Rate: 20 br/min Body Mass Index:??32.48 kg/m2??Critical Systolic Blood Pressure: 115 mm Hg Body surface area: 1.98 Diastolic Blood Pressure: 70 mm Hg ?? Oxygen Saturation: 94 % ?? Studies Pending All tests and labs ordered during this hospital stay have been completed unless listed below. Please discuss all pending results with your provider listed above in these instructions. ?? Add On Lab Order Fungal Culture, Nonrespiratory (FUNGAL CULT,NON-RESPIRATORY) Pathology Tissue Request () What to do next Instructions From Your Doctor You were admitted to [facility]??for an abscess on your breast. Unfortunately, you got an infection in that area called Necrotizing Fasciitis. Due to that, you required frequent drainage procedures by surgery and antibiotics??to make sure your infection was fully treated. Ultimately, you also got a graft procedure over the wound.??You were monitored closely to make sure your remained medically stable while your body healed. When your drain was removed, you were prepared for discharge. The wound though would require??twice daily changes, so you were planned for discharge to a facility near your home that would be open to your insurance.?? Please continue your pain management, oxycodone 5mg as needed every 6 hours. Follow up with your PCP and trauma surgery.?? Your wound will need to be changed 2x daily while you heal. Discharge Orders Diet:??Low Fat 50 Gram Non Cardiac Diet Activity:??Ambulate with assistance 3 times a day unless otherwise specified Wound Care:??Wound Site: Left chest wall Skin Care: Xeroform Dressing: Dry Sterile Dressing Slowly remove xeroform from skin graft and cover with abd pads Daily Yes Code Status:?? Full Resuscitation Scheduled Follow-Up Appointments Tuesday 9:00 AM EST ?? With: Helder Yanez MD Where: Trauma Surg [address] [place] [address]- Status: Pending Tuesday 10:20 AM EST ?? With: Helder Yanez MD Where: Trauma Surg [address] [place] [address]- Status: Pending You Need to Schedule the Following Appointments Follow Up with??Helder Yanez MD When:??03/08/2023 09:00 AM EST Why: Skin graft and cholecystectomy follow-up Where: [address] [place] [address] [address] [facility] [place] [address]- Follow Up with??Valorie Zamora MD When:??Within 1 week: call to discuss follow up visit Where: [address] [place], [place] - Follow Up with??Trauma Surgery When:??Within 1 to 2 weeks Why: You will be??called with appointment schedule within 2 weeks at trauma surgery clinic Follow Up with??Valorie Zamora MD When:??Within 1 week: call to discuss follow up visit Where: [address] [place], [place] - Discharge Medications ANOOP COONEY :1955 Visit Date:01/17/2023 Medications: Please continue your medications until treatment is completed or stopped by your provider. Medications not listed below should be discontinued. Discuss any questions related to medications with your provider. What How Much When Instructions Next Dose New Oxycodone (oxyCODONE 5 mg oral tablet) 7.5 Milligram Oral Every 6 hours as needed for Pain , Severe Duration: 3 [facility] Every 6 hours as needed for Pain , Severe Changed Metoprolol (Toprol XL 100 mg oral tablet, extended release) 1 tab(s) Oral Daily Tomorrow morning 02/20 at 9am Unchanged Acetaminophen (Tylenol Extra Strength 500 mg oral tablet) 2 tab(s) Oral Every 6 hours as needed for as needed for pain Every 6 hours as needed for as needed for pain Unchanged Amlodipine (amLODIPine 5 mg oral tablet) 1 tab(s) Oral Daily Tomorrow morning 02/20 at 9am Unchanged Aspirin (aspirin 81 mg oral tablet, chewable) 1 tab(s) Oral Daily Tomorrow morning 02/20 at 9am Unchanged Atorvastatin (Lipitor 80 mg oral tablet) 1 tab(s) Oral Daily at Bedtime Tonight 02/19 at bedtime Unchanged Ibuprofen (ibuprofen 800 mg oral tablet) 1 tab(s) Oral Every 8 hours Every 8 hours Unchanged Lisinopril (lisinopril 20 mg oral tablet) 1 tab(s) Oral Daily Tomorrow morning 02/20 at 9am Unchanged Methenamine (methenamine hippurate 1 gm oral tablet) 1 tab(s) Oral Daily Tomorrow morning 02/20 at 9am Unchanged Quetiapine (QUEtiapine 50 mg oral tablet) 1 tab(s) Oral Twice a day Tonight 02/19 at 9am Unchanged Senna (Senna 8.6 mg oral tablet) 1 tab(s) Oral Daily at Bedtime Tonight 02/19 at bedtime Unchanged Tolterodine (tolterodine 4 mg oral capsule, extended release) 1 capsule Oral Daily Tomorrow morning 02/20 at 9am Pharmacy Information [facility]: [address], [place] [id number] [phone] Test Results Below is a partial list of the most recent Laboratory test results done prior to this discharge. You may have had other tests and procedures not included in this list. Please discuss all test resultswith your provider. Est Creatinine Clearance - 53.48 mL/min (02/18/2023) [id number] (01/27/2023) ? ?Surgical Pathology - Patient Name: ANOOP COONEY
Lab
Patient : 1955 (Age: 67)
Collection Date: 01/27/2023
Accession Date: 01/28/2023
Sign Out Date: 02/02/2023

Tissue Source:
1:LEFT AXILLARY CONTENTS

Final Diagnosis:
Axillary contents, left, removal:
- Eleven reactive lymph nodes, negative for carcinoma.
- Focal acute inflammation present in paranodal adipose tissue.
<br/ >

Primary Pathologist:Nic Robert M.D.
electronically signed out by: Nic Robert M.D. / MATT

Clinical History:<br/&gt ;Necrotizing infection of axilla

Gross Description:
Labeled left axillary contents . Received in formalin is a 10.4 x10.0 x 3.0 cm portion of lares-yellow to red, slightly dusky fibrofatty tissue. Dissection reveals 11 irregular lares-pink to red rubbery possible lymph nodes ranging from 0.4 x 0.4 x 0.3 cm to3.1 x 2.3 x 1.4 cm. Sectioning reveals#. The possible lymph nodes are entirely submitted.
1-2 possible intact lymph nodes, 2 pieces
2-2 possible intact lymph nodes, 2 pieces
3-2 possible bisected lymph nodes (1 inked blue), 4 pieces
4-2 possible bisected lymph nodes (1 inked blue), 4 pieces
5-2 possible bisected lymph nodes (1 inked blue), 4 pieces
6-8-1 possible lymph node, serially sectioned, each 3 pieces (HS)*

Phone #: [phone], On-Call Pathologist: [id number] Amylase (02/15/2023) ???Amylase - 1172 units/L Basic Metabolic Panel (02/14/2023) ???Sodium - 143 mmol/L???Potassium - 4.3 mmol/L???Chloride - 107 mmol/L???Bicarbonate Level - 25 mmol/L???Anion Gap - 11???Glucose Level - 142 mg/dL???BUN - 27 mg/dL???Creatinine-Blood - 1.0 mg/dL???Estimated GFR Creatinine - 59 ML/MIN/1.73 M2???Calcium - 9.1 mg/dL Bilirubin Total + Direct (02/17/2023) ???Bilirubin, Total - 0.6 mg/dL???Bilirubin, Direct - 0.3 mg/dL???Bilirubin, Indirect - 0.3 mg/dL BUN (01/31/2023) ???BUN - 16 mg/dL Calcium Ionized (01/28/2023) ???Calcium, Ionized pH Corrected - 1.27 mmol/L CBC (02/16/2023) ???WBC - 11.1 k/mm3???RBC - 3.47 m/mm3???Hgb - 10.3 Gm/dL???Hct - 31.5 %???MCV - 90.8 femtoliters???MCH - 29.7 pg???MCHC - 32.7 g/dL???Platelet Count - 368 k/mm3???RDW-SD - 43.2 femtoliters???MPV - 9.5 femtoliters???Nucleated RBC (Automated) - 0.0 #/100 WBC'S???Abs. NRBC - 0.0 k/mm3 CBC w/ Differential (02/19/2023) ???WBC - 8.4 k/mm3???RBC - 3.05 m/mm3???Hgb - 8.9 Gm/dL???Hct - 28.2 %???MCV - 92.5 femtoliters???MCH - 29.2 pg???MCHC - 31.6 g/dL???Platelet Count - 271 k/mm3???RDW-SD - 43.8 femtoliters???MPV - 10.5 femtoliters???Nucleated RBC (Automated) - 0.0 #/100 WBC'S???Abs. NRBC - 0.0 k/mm3???Abs. Neut - 4.9 k/mm3???Abs. Lymph - 1.9 k/mm3???Abs. Slope - 0.7 k/mm3???Abs. Eo - 0.8 k/mm3???Abs. Baso - 0.0 k/mm3???Neut % - 58.8 %???Lymph % - 22.8 %???Slope % - 7.9 %???Eos % - 9.6 %???Baso % - 0.5 %???Imm Gran- 0.4 %???Abs. Imm Gran - 0.0 k/mm3 Comprehensive Metabolic Panel (02/19/2023) ???Sodium - 141 mmol/L???Potassium - 4.4 mmol/L???Chloride - 106 mmol/L???Bicarbonate Level - 24 mmol/L???Anion Gap - 11???Glucose Level - 118 mg/dL???BUN - 13 mg/dL???Creatinine-Blood - 0.9 mg/dL???Estimated GFR Creatinine - 76 ML/MIN/1.73 M2???Calcium - 8.4 mg/dL???Protein, Total - 5.3 Gm/dL???Alb umin - 2.9 Gm/dL???AG Ratio - 1.2???Alkaline Phosphatase - 289 units/L???AST (SGOT) - 32 units/L???ALT (SGPT) - 68 units/L???Bilirubin, Total - 0.2 mg/dL Creatinine (01/31/2023) ???Creatinine-Blood - 0.9 mg/dL???Estimated GFR Creatinine - 73 ML/MIN/1.73 M2 Electrolytes (01/31/2023) ???Sodium - 145 mmol/L???Potassium - 3.6 mmol/L???Chloride - 116 mmol/L???Bicarbonate Level - 21 mmol/L???Anion Gap - 8 Glucose Level (01/31/2023) ???Glucose Level - 90 mg/dL GLUCOSE POC (02/01/2023) ???Glucose, POC - 172 mg/dL HEMOGLOBIN A1C (01/19/2023) ???Hemoglobin A1C (Monitoring) - 5.9 % HIV Ab-Ag 4th Generation (01/27/2023) ???HIV 4th Generation Ab-Ag Result - NEGATIVE Ionized Calcium (01/28/2023) ???Calcium, Ionized pH Corrected - 1.20 mmol/L Lactate Level (01/27/2023) ???Lactate - 1.3 mmol/L Lipase (02/16/2023) ???Lipase - 2691 units/L Lytes (01/28/2023) ???Sodium - 138 mmol/L???Potassium - 4.2 mmol/L???Chloride - 104 mmol/L???Bicarbonate Level - 25 mmol/L???Anion Gap - 9 Magnesium Level (02/19/2023) ???Magnesium - 1.6 mg/dL Phosphorus Level (02/19/2023) ???Phosphorus - 3.5 mg/dL Vancomycin Trough (01/31/2023) ???Vancomycin Level, Trough - 12.1 mg/L Allergies (NKA means No Known Allergies) Demerol Latex PHENobarbital Vicodin penicillin sulfADIAZINE Problems Active Problems??(6) Bipolar I disorder?? Encephalopathy?? Encephalopathy acute?? Expressive aphasia?? Hypertensive urgency?? Left acute arterial ischemic stroke, MCA (middle cerebral artery)?? Education Materials Below is the list of Educational Leaflet Providered with your Discharge Instructions. Valuables and Belongings I fully understand and agree that [facility] accepts no responsibility for all my personal property including clothing, toilet articles, radios, jewelry, dentures, hearing aids, rings, money, or any other property that is in my possession or is brought to me after admission. I understand certain valuables may be placed in a hospital safe for a short period of time. I understand that the hospital is not liable for loss or damage due to accident, fire, or other natural occurrence while said property is in the safe. I accept full responsibility for any personal property that I keep with me, and will not hold the hospital responsible in case of loss or disappearance. I acknowledge that i have been encouraged to send valuables and belongings home. ?? No Valuables/Belongings: No valuables/belongings present Review of Valuable and Belonging List: With patient Disposition of Belongings: Sent home with patient/family Date for Pt to Sign Valuables/Belongings: 02/04/23 07:55:00 ?? Valuables & Belongings ?? Clothes Electronic devices Jewelry Monetary Items Personal devices Miscellaneous Medications (Valuables) Valuables at Bedside ? Necklace Purse, Wallet Dentures, upper, Glasses ? Valuables Sent Home ? Valuables Sent to Security ? Other Discharge Information ?? Wound Assessment?? Wound Assessment?? Wound Vac Location: L breast Dressing Intact Wound: Yes Suction Setting Wound: 100 mm HG ?? Case Management Discharge Plan?? Discharge Plan?? Discharge Agency Information?? Discharge Level of Care at Discharge: [facility] facility Name of Agency #1: [facility] Discharge Transportation Arranged: [facility] [phone] [facility] [id number] [phone] Agency Division Chair #1: Mode of Transportation Arranged: Ambulance Service Categories #1: Occupational Therapy, Physical Therapy, Custodial Discharge Arranged Transport Date/Time: 02/19/23 12:00:00 Service Comments #1: You are being discharged today to [facility] at [address] You will go at noon by ambulance. Discharge Nursing Homes/Rehab Facilities: [facility] ? Pulmonary Rehab Status?? Pulmonary Rehab Discharge Status?? Respiratory Rate: 20 br/min ? Common Emergency Awareness Tips IS IT A STROKE? Act FAST and Check for these signs: FACE Does the face look uneven? ARM Does one arm drift down? SPEECH Does their speech sound strange? TIME Call at any sign of stroke ?? Heart Attack Signs Chest discomfort: Most heart attacks involve discomfort in the center of the chest and lasts more than a few minutes, or goes away and comes back. It can feel like uncomfortable pressure, squeezing, fullness or pain. Discomfort in upper body: Symptoms can include pain or discomfort in one or both arms, back, neck, jaw or stomach. Shortness of breath: With or without discomfort. Other signs: Breaking out in a cold sweat, nausea, or lightheaded. Remember, MINUTES DO MATTER. If you experience any of these heart attack warning signs, call to get immediate medical attention! ?? Smoking can increase your chances of developing chronic health problems and can cause harmful effects to other family members in your house. If you smoke, you are strongly encouraged to quit. Please call [employer] at [phone] or [phone]) or log in to [email or web address] for referrals to smoking cessation programs. ?? 988 Suicide & Crisis Lifeline is available 20/09 if you or someone you know needs to find a reason to keep living. By calling 438 you'll be connected to a skilled, trained counselor at a crisis center in your area. INPATIENT DISCHARGE INSTRUCTIONS SIGNATURE PAGE ANOOP COONEY Location:[facility] Registration Date and Time:01/17/2023 19:34 EST Primary Care Physician: Sera OLIVIER , Valorie Cassidy, Attending Physician: Gagandeep OLIVIER, Stefanie, I ANOOP COONEY, have received the above patient education materials/instructions and have verbalized understanding. If ambulance or transport services are being used I further acknowledge being given a choice of service. ?? If you need to contact me, please call me at this number: . 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 Name: 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 Signature: Relationship to Patient: Witness Name/Signature: Date: Patient Care team information Care Team Personnel Name: Rose Preston RN Position: [facility] RN Member Role: Primary Care Nurse Name: Silvia Nation RN Position: [facility] RN Member Role: Primary Care Nurse Name: Katrin Albarran RN Position: [facility] RN Member Role: Primary Care Nurse Name: Mayank Su Position: [facility] RN Member Role: Primary Care Nurse Name: Loida Ponce RN Position: [facility] RN Member Role: Primary Care Nurse Name: Valorie Zamora MD Position: Reference Physician Member Role: PCP Address: Address: [address] [place] [address]- [place] Name: Karine Carver RN Position: [facility] RN Member Role: Primary Care Nurse Name: Stanley Akbar Jr, RN Position: [facility] RN Member Role: Primary Care Nurse Name: Rudy Michaud RN Position: [facility] RN Member Role: Primary Care Nurse Name: Philip LO, Aminta Position: [facility] RN Member Role: Primary Care Nurse Name: Pa Timmons RN Position: [facility] RN Member Role: Primary Care Nurse Address: Address: [place] [address]- Name: Amber Louis RN Position: [facility] RN Member Role: Primary Care Nurse Name: Lanette Poe Position: [facility] ANGELIQUE Office Staff Member Role: Lifetime Consulting Physician Name: Wayne Rivers RN Position: [facility] RN Member Role: Primary Care Nurse Name: Sailaja Correa RN Position: [facility] ED RN W/OE and Tasks Member Role: Primary Care Nurse Name: Jose LONG Attending Position: [facility] ED Medicine MD Name: Cynthia Lovett Position: [facility] ED OA Charge Member Role: ED Associate Name: Yulissa Garcia Position: [facility] ED TA [facility] Member Role: Rotary Slicing Machine Operator Care Team Related Persons Name: RINA HUNT Name: RED ROSE Name: SERGIO ROSE Address: [address] [place] [address] Name: KENYA REYES Address: home [address] [place] [address]
--- OUTSIDE RECORDS SUMMARY | 2024-01-24 10:02 | XMS_ITS | Continuity of Care Document ---
Author Organization [facility] Address [address] [place], [place] [address] ve [address] [place] [address]- Care Team Providers Care Skimmer Scoop Operator Name Role Phone Sera OLIVIER, Valorie Cassidy Primary Care Physician Encounter [facility] Date(s): 03/08/23 - 04/07/[address] [place] [address]- Allergies, Adverse Reactions, Alerts Substance Reaction Severity Status penicillin Active sulfADIAZINE Active Demerol Active Latex Active PHENobarbital Active Vicodin Active Immunizations Given and Recorded Vaccine Date [...] opioid drug. Start Date: 12/03/22 Status: Ordered Aquaphor Healing topical ointment See Instructions, apply to donor site and chest wall, # 396 Gm, 1 Refills, Maintenance, 04/01/23 14:19:00 [facility], Partial fill upon patient request if the prescription is fora schedule II opioid drug., apply to donor site and henri... Start Date: 04/01/23 Status: Ordered aspirin 81 mg oral tablet, chewable 81 mg, 1, tablet, By Mouth, Daily, # 30 tablet, Refills 0, Tot. Refills 0, Maintenance, 10/23/21 15:57:00 EDT, Route to Pharmacy Electronically, [facility][id number], Partial fill upon patientrequest if the prescription [...] 0 Refills, Maintenance, 10/23/21 15:57:00 EDT, Tablet, [facility] #[id number], Partial fill upon patient request if the prescription isfor a schedule II opioid drug., 163, cm, 10/20/21 7... Start Date: 10/23/21 Status: Ordered lisinopril 20 mg oral tablet 20 mg, 1, tablet, By Mouth, Daily, # 30 tablet, Refills 0, Tot. Refills 0, Maintenance, 10/23/21 15:58:00 EDT, Route to Pharmacy Electronically, [id number], Partial fill upon patientrequest if the prescription is for a schedule II op... Start Date: 10/23/21 Status: Ordered methenamine hippurate 1 gm oral tablet 1 tablet = 1 Gm, By Mouth, Daily, 0 Refills, Maintenance, 12/03/22 15:20:00 EDT, Partial fill upon patient request if the prescription is for a schedule II opioid drug. Start Date: 12/03/22 Status: Ordered QUEtiapine 50 mg oral tablet 1 tablet = 50 mg, By Mouth, 2 times a day, # 60 tablet, 0 Refills, Maintenance, 10/23/21 15:59:00 EDT, Tablet, [facility][id number], Partial fill upon patient request if the [...] stroke, MCA (middle cerebral artery) Confirmed Active Social History Social History Type Response Smoking Status Cigars or pipes silverio y within last 30 days entered on: 10/12/21 Sex Patient Care team information Care Team Personnel Name: Rose Preston RN Position: S RN Member Role: Primary Care Nurse Name: Silvia Nation RN Position: S RN Member Role: Primary Care Nurse Name: Katrin Albarran RN Position: S RN Member Role: Primary Care Nurse Name: Mayank Su Position: S RN Member Role: Primary Care Nurse Name: Loida Ponce RN Position: [facility] RN Member Role: Primary Care Nurse Name: Valorie Zamora MD Position: Reference Physician Member Role: PCP Address: Address: [address] [place], [place] - [place] Name: Karine Carver RN Position: [facility] RN Member Role: Primary Care Nurse Name: Stanley Akbar Jr, RN Position: [facility] RN Member Role: Primary Care Nurse Name: Rudy Michaud RN Position: [facility] RN Member Role: Primary Care Nurse Name: Philip LO, Aminta Position: [facility] RN Member Role: Primary Care Nurse Name: Pa Timmons RN Position: [facility] RN Member Role: Primary Care Nurse Address: Address: [place] [address]- [place] Name: Amber Louis RN Position: [facility] RN Member Role: Primary Care Nurse Name: Lanette Poe Position: [facility] [place] Office Staff Member Role: Lifetime Consulting Physician Name: Wayne Rivers RN Position: [facility] RN Member Role: Primary Care Nurse Name: Sailaja Correa RN Position: [facility] ED RN W/OE and Tasks Member Role: Primary Care Nurse Care Team Related Persons Name: RINA HUNT Name: RED ROSE Name: SERGIO ROSE Address: home [address] [place] [address] Name: KENYA REYES Address: home [address] [place] [address]
--- OUTSIDE RECORDS SUMMARY | 2024-01-24 10:02 | XMS_ITS | Continuity of Care Document ---
Author Organization [facility] Address [address], [address], [address] [place] [address]- Care Team Providers Care Lpn Cma Name Role Phone Sera OLIVIER, Valorie Cassidy Primary Care Physician [id number] - 12[facility]21 [facility] [address], [address] [place] [id number] Attending Physician: Bandar Camp MD Admitting Physician: Bandar Camp MD Referring Physician: Sera OLIVIER , Valorie Cassidy Allergies, Adverse Reactions, Alerts Substance Reaction Severity Status penicillin Active sulfADIAZINE Active PHENobarbital Active Vicodin Active Latex Active Immunizations Given and Recorded Vaccine Date Status Refusal Reason zoster vaccine, inactivated 03/23/18 Recorded zoster vaccine, inactivated 01/06/18 Recorded influenza virus vaccine, inactivated 04/29/17 Michele rded Medications acetaminophen 325 mg oral tablet 650 mg, 2, tablet, By Mouth, Every 6 hours, PRN, Refills 0, Maintenance, Pain , Mild, 10/23/21 15:59:00 EDT, Partial fill upon patient request if the prescription is for a schedule II opioid drug. Start Date: 10/23/21 Status: Ordered aspirin 81 mg oral tablet, chewable 81 mg, 1, tablet, By Mouth, Daily, # 30 tablet, Refills 0, Tot. Refills 0, Maintenance, 10/23/21 15:57:00 EDT, Route to Pharmacy Electronically, [facility][id number], Partial fill upon patientrequest if the prescription is for a schedule II op... Start Date: 10/23/21 Status: Ordered chlorthalidone 25 mg oral tablet 25 mg, 1, tablet, By Mouth, Daily, # 30 tablet, Refills 0, Tot. Refills 0, Maintenance, 10/23/21 15:57:00 EDT, Route to Pharmacy Electronically, [facility] #[id number], Partial fill upon patientrequest if the prescription is for a schedule II op... Start Date: 10/23/21 Status: Ordered cloNIDine 0.1 mg/24 hr transdermal film, extended release 1 patch, Topically, Every week, # 5 patch, 0 Refills, Maintenance, 10/23/21 15:58:00 EDT, Patch, [facility] #[id number], Partial fill upon patient request if the prescription is for a schedule II opioid drug., 163, cm, 10/20/21 7:50:00 EDT, Heigh... Start Date: 10/23/21 Status: Ordered Lipitor 80 mg oral tablet 1 tablet = 80 mg, By Mouth, Daily at bedtime, # 30 tablet, 0 Refills, Maintenance, 10/23/21 15:57:00 EDT, Tablet, [facility] #[id number], Partial fill upon patient request if the prescription isfor a schedule II opioid drug., 163, cm, 10/20/21 7... Start Date: 10/23/21 Status: Ordered lisinopril 20 mg oral tablet 20 mg, 1, tablet, By Mouth, Daily, # 30 tablet, Refills 0, Tot. Refills 0, Maintenance, 10/23/21 15:58:00 EDT, Route to Pharmacy Electronically, [facility] #[id number], Partial fill upon patientrequest if the prescription is for a schedule II op... Start Date: 10/23/21 Status: Ordered metoprolol 25 mg oral tablet 75 mg, 3, tablet, By Mouth, 2 times a day, # 180 tablet, Refills 0, Tot. Refills 0, Maintenance, 10/23/21 15:58:00 EDT, Route to Pharmacy Electronically, [facility] #[id number], Partial fill upon patient request if the prescription is for a sched... Start Date: 10/23/21 Status: Ordered OXcarbazepine 150 mg oral tablet 150 mg, 1, tablet, By Mouth, 2 times a day, # 60 tablet, Refills 0, Tot. Refills 0, Maintenance, 10/23/21 15:59:00 EDT, Route to Pharmacy Electronically, [facility] #[id number], Partial fill upon patient request if the prescription is for a sched... Start Date: 10/23/21 Status: Ordered oxybutynin 5 mg/24 hours oral tablet, extended release 1 tablet = 5 mg, By Mouth, Daily, # 30 tablet, 0 Refills, Maintenance, 10/23/21 15:58:00 EDT, XL Tablet, [facility] #[id number], Partial fill upon patient request if the prescription is for a schedule II opioid drug., 163, cm, 10/20/21 7:50:00 ED... Start Date: 10/23/21 Status: Ordered QUEtiapine 50 mg oral tablet 1 tablet = 50 mg, By Mouth, 2 times a day, # 60 tablet, 0 Refills, Maintenance, 10/23/21 15:59:00 EDT, Tablet, [facility][id number], Partial fill upon patient request if the prescription is for a schedule II opioid drug., 163makeda, 10/20/21 7:50... Start Date: 10/23/21 Status: Ordered Problem List Condition Confirmation Course [...] on: 10/12/21 Sex Patient Care team information Personnel Name: Sera OLIVIER , Valorie Cassidy Address: Address: [address] [place] [address]
--- OUTSIDE RECORDS SUMMARY | 2024-01-24 10:02 | XMS_ITS | Continuity of Care Document ---
Author Organization [facility] Address [address] [place] [address] D[address] ve [address] [place] [address]- Care Team Providers Care Court Liaison Name Role Phone Nirmala MUNOZ, Terese Primary Care Physician [phone] Encounter [facility] [place] [facility]CT R [id number] Date(s): 06/08/23 - 06/15/23 [facility] [address] [place] [id number] Attending Physician: Daljit Coyle MD Referring Physician: Terese Silvestre NP Allergies, Adverse Reactions, Alerts Substance Reaction Severity Status penicillin Active sulfADIAZINE Active PHENobarbital Active Latex Active Vicodin Active Demerol Active Immunizations Given and Recorded Vaccine Date [...] 396 Gm, 1 Refills, Maintenance, 04/01/23 14:19:00 [facility], Partial fill upon patient request if the prescription is fora schedule II opioid drug., apply to donor site and henri... Start Date: 04/01/23 Status: Ordered aspirin 81 mg oral tablet, chewable 81 mg, 1, tablet, By Mouth, Daily, # 30 tablet, Refills 0, Tot. Refills 0, Maintenance, 10/23/21 15:57:00 EDT, Route to Pharmacy Electronically, [facility] #[id number], Partial fill upon patientrequest if the prescription [...] 0 Refills, Maintenance, 10/23/21 15:57:00 EDT, Tablet, [facility] #[id number], Partial fill upon patient request if the prescription isfor a schedule II opioid drug., 163, cm, 10/20/21 7... Start Date: 10/23/21 Status: Ordered lisinopril 20 mg oral tablet 20 mg, 1, tablet, By Mouth, Daily, # 30 tablet, Refills 0, Tot. Refills 0, Maintenance, 10/23/21 15:58:00 EDT, Route to Pharmacy Electronically, [facility] #[id number], Partial fill upon patientrequest if the prescription [...] 0 Refills, Maintenance, 10/23/21 15:59:00 EDT, Tablet, [facility] #[id number], Partial fill upon patient request if the [...] stroke, MCA (middle cerebral artery) Confirmed Active Vital Signs Most recent to oldest [Reference Range]: 1 Height 163 cm (06/08/23 11:25 AM) Weight 86.3 kg (06/08/23 11:25 AM) Body Mass Index [18.5-24.99 kg/m2] 32.48 kg/m2 *>HHI* (06/08/23 11:25 AM) Social History Social History Type Response Smoking Status Cigars or pipes silverio y within last 30 days entered on: 10/12/21 Sex Patient Care team information Care Team Personnel Name: Rose Preston RN Position: [facility] RN Member Role: Primary Care Nurse Name: Katrin Albarran RN Position: [facility] RN Member Role: Primary Care Nurse Name: Mayank Su Position: [facility] RN Member Role: Primary Care Nurse Name: Loida Ponce RN Position: [facility] RN Member Role: Primary Care Nurse Name: Karine Carver RN Position: [facility] RN Member Role: Primary Care Nurse Name: Stanley Akbar Jr, RN Position: [facility] RN Member Role: Primary Care Nurse Name: Rudy Michaud RN Position: [facility] RN Member Role: Primary Care Nurse Name: Philip LO, Aminta Position: [facility] RN Member Role: Primary Care Nurse Name: Amber Louis RN Position: [facility] RN Member Role: Primary Care Nurse Name: Lanette Poe Position: [facility] Office Staff Member Role: Lifetime Consulting Physician Name: Terese Silvestre NP Position: Reference Physician Member Role: PCP Address: Address: [address] [place] [address] Name: Wayne Rivers RN Position: [facility] RN Member Role: Primary Care Nurse Name: Sailaja Correa RN Position: [facility] ED RN W/OE and Tasks Member Role: Primary Care Nurse Care Team Related Persons Name: RINA HUNT Name: RED ROSE Name: SERGIO ROSE Address: home [address] [place] [address] Name: KENYA REYES Address: home [address] [place] [address]
--- OUTSIDE RECORDS SUMMARY | 2024-01-24 10:02 | XMS_ITS | Continuity of Care Document ---
Author Organization [facility] Address [address] [place] [address]- Care Team Providers Care Log Haul Operator Name Role Phone Sera OLIVIER, Valorie Cassidy Primary Care Physician Encounter [facility] Date(s): 01/19/23 - 02/18/[address] [address] Attending Physician: Not on Staff, Attending MD Admitting Physician: Not on Staff, Admitting MD Referring Physician: Not on Staff, Referring [...] 10/23/21 15:57:00 EDT, Route to Pharmacy Electronically, [facility] #[id number], Partial fill upon patientrequest if the prescription [...] 0 Refills, Maintenance, 10/23/21 15:57:00 EDT, Tablet, [facility] #[id number], Partial fill upon patient request if the prescription isfor a schedule II opioid drug., 163, cm, 10/20/21 7... Start Date: 10/23/21 Status: Ordered lisinopril 20 mg oral tablet 20 mg, 1, tablet, By Mouth, Daily, # 30 tablet, Refills 0, Tot. Refills 0, Maintenance, 10/23/21 15:58:00 EDT, Route to Pharmacy Electronically, [facility][id number], Partial fill upon patientrequest if the prescription is for a schedule II op... Start Date: 10/23/21 Status: Ordered methenamine hippurate 1 gm oral tablet 1 tablet = 1 Gm, By Mouth, Daily, 0 Refills, Maintenance, 12/03/22 15:20:00 EDT, Partial fill upon patient request if the prescription is for a schedule II opioid drug. Start Date: 12/03/22 Status: Ordered oxyCODONE 5 mg oral tablet 5 mg, By Mouth, Every 6 hours, PRN, for 7 days, # 28 tablet, Refills 0, Tot. Refills 0, Acute 02/21/23 11:16:00 EST, Pain , Severe, 02/14/23 11:16:00 EST, Route to Pharmacy Electronically, [facility], Partial fill upon patient request if... Start Date: 02/14/23 Stop Date: 02/21/23 Status: Ordered QUEtiapine 50 mg oral tablet 1 tablet = 50 mg, By Mouth, 2 times a day, # 60 tablet, 0 Refills, Maintenance, 10/23/21 15:59:00 EDT, Tablet, [facility][id number], Partial fill upon patient request if the [...] Team Personnel Name: Rose Preston RN Position: [facility] RN Member Role: Primary Care Nurse Name: Silvia Nation RN Position: [facility] RN Member Role: Primary Care Nurse Name: Katrin Albarran RN Position: [facility] RN Member Role: Primary Care Nurse Name: Mayank Su Position: [facility] RN Member Role: Primary Care Nurse Name: Loida Ponce RN Position: [facility] RN Member Role: Primary Care Nurse Name: Valorie Zamora MD Position: Reference Physician Member Role: PCP Address: Address: [address] [place] [address]- [place] Name: Karine Carver RN Position: [facility] RN Member Role: Primary Care Nurse Name: Stanley Akbar Jr, RN Position: [facility] RN Member Role: Primary Care Nurse Name: Rudy Michaud RN Position: [facility] RN Member Role: Primary Care Nurse Name: Aminta Palacios LPN Position: [facility] RN Member Role: Primary Care Nurse Name: Pa Timmons RN Position: [facility] RN Member Role: Primary Care Nurse Address: Address: [place] [address]- Name: Amber Louis RN Position: [facility] RN Member Role: Primary Care Nurse Name: Lanette Poe Position: [facility] [place] Office Staff Member Role: Lifetime Consulting Physician Name: Wayne Rivers RN Position: [facility] RN Member Role: Primary Care Nurse Name: Sailaja Correa RN Position: [facility] ED RN W/OE and Tasks Member Role: Primary Care Nurse Care Team Related Persons Name: MARILEE RINA Name: RED ROSE Name: SERGIO ROSE Address: home [address] [place] [address] Name: KENYA REYES Address: home [address] [place] [address]
--- OUTSIDE RECORDS SUMMARY | 2024-01-24 10:02 | XMS_ITS | Continuity of Care Document ---
Author Organization [facility] Address [address] [place] [address] [address] [place] [address]- Care Team Providers Care Lead Radiation Therapist Name Role Phone Nirmala MUNOZ, Terese Primary Care Physician [place] [facility] [place] [id number] Date(s): 05/17/23 - 06/16/[address] [place], [place] [address] Attending Physician: Admtr, Rajan8 Admitting Physician: Admtr, Ar8 Referring Physician: Admtr, Ar8 Allergies, Adverse Reactions, Alerts Substance Reaction Severity [...] 10/23/21 15:57:00 EDT, Route to Pharmacy Electronically, [facility] #[id number], Partial fill upon patientrequest if the prescription [...] 0 Refills, Maintenance, 10/23/21 15:57:00 EDT, Tablet, [facility][id number], Partial fill upon patient request if the prescription isfor a schedule II opioid drug., 163, cm, 10/20/21 7... Start Date: 10/23/21 Status: Ordered lisinopril 20 mg oral tablet 20 mg, 1, tablet, By Mouth, Daily, # 30 tablet, Refills 0, Tot. Refills 0, Maintenance, 10/23/21 15:58:00 EDT, Route to Pharmacy Electronically, [facility] #[id number], Partial fill upon patientrequest if the prescription [...] 0 Refills, Maintenance, 10/23/21 15:59:00 EDT, Tablet, [facility] #[id number], Partial fill upon patient request if the [...] RN Member Role: Primary Care Nurse Name: [place] RN, Loida Position: [facility] RN Member Role: Primary Care Nurse Name: Karine Carver RN Position: [facility] RN Member Role: Primary Care Nurse Name: Stanley Akbar Jr, RN Position: [facility] RN Member Role: Primary Care Nurse Name: Rudy Michaud RN Position: [facility] RN Member Role: Primary Care Nurse Name: Philip LO, Aminta Position: [facility] RN Member Role: Primary Care Nurse Name: Amber Louis RN Position: [facility] RN Member Role: Primary Care Nurse Name: Lanette Poe Position: [facility] [place] Office Staff Member Role: Lifetime Consulting Physician Name: Terese Silvestre NP Position: Reference Physician Member Role: PCP Address: Address: [address] [place] [address] Name: Wayne Rivers RN Position: [facility] RN Member Role: Primary Care Nurse Name: Sailaja Correa RN Position: [facility] ED RN W/OE and Tasks Member Role: Primary Care Nurse Care Team Related Persons Name: RINA HUNT Name: RED ROSE Name: SERGIO ROSE Address: home [address] [place] [address] Name: KENYA REYES Address: home [address] [place] [address]
--- OUTSIDE RECORDS SUMMARY | 2024-01-24 10:02 | XMS_ITS | Continuity of Care Document ---
Author Organization [facility] Address [address] [place] [address]- Care Team Providers Care Research Quality Assurance Specialist Name Role Phone Sera OLIVEIR, Valorie Cassidy Primary Care Physician Encounter [facility] ACCT R [id number] Date(s): 11/01/22 - 12/31/22 [facility] [address] [place], [place] [address] Attending Physician: Jun Ram MD Admitting Physician: Jun Ram MD Referring Physician: Malorie Elizondo DO Allergies, Adverse Reactions, Alerts Substance Reaction Severity [...] opioid drug. Start Date: 10/23/21 Status: Ordered amLODIPine 5 mg oral tablet 1 tablet [...] 10/23/21 15:57:00 EDT, Route to Pharmacy Electronically, [facility] #[id number], Partial fill upon patientrequest if the prescription [...] 0 Refills, Maintenance, 10/23/21 15:57:00 EDT, Tablet, [facility][id number], Partial fill upon patient request if the prescription isfor a schedule II opioid drug., 163, cm, 10/20/21 7... Start Date: 10/23/21 Status: Ordered lisinopril 20 mg oral tablet 20 mg, 1, tablet, By Mouth, Daily, # 30 tablet, Refills 0, Tot. Refills 0, Maintenance, 10/23/21 15:58:00 EDT, Route to Pharmacy Electronically, [facility] #[id number], Partial fill upon patientrequest if the prescription is for a schedule II op... Start Date: 10/23/21 Status: Ordered methenamine hippurate 1 gm oral tablet 1 tablet = 1 Gm, By Mouth, Daily, 0 Refills, Maintenance, 12/03/22 15:20:00 EDT, Partial fill upon patient request if the prescription is for a schedule II opioid drug. Start Date: 12/03/22 Status: Ordered metoprolol 25 mg oral tablet 75 mg, 3, tablet, By Mouth, 2 times a day, # 180 tablet, Refills 0, Tot. Refills 0, Maintenance, 10/23/21 15:58:00 EDT, Route to Pharmacy Electronically, [facility] #[id number], Partial fill upon patient request if the prescription is for a sched... Start Date: 10/23/21 Status: Ordered QUEtiapine 50 mg oral tablet 1 tablet = 50 mg, By Mouth, 2 times a day, # 60 tablet, 0 Refills, Maintenance, 10/23/21 15:59:00 EDT, Tablet, [facility] #[id number], Partial fill upon patient request if the [...] opioid drug. Start Date: 12/03/22 Status: Ordered Tylenol Extra Strength 500 mg [...] Care team information Care Team Personnel Name: Sera OLIVIER , Valorie Cassidy Position: Reference Physician Member Role: PCP Address: Address: [address] [place] [address]- Name: Lanette Poe Position: [facility] Office Staff Member Role: Lifetime Consulting Physician Care Team Related Persons Name: RINA HUNT Name: RED ROSE Name: SERGIO ROSE Address: [address] [place] [address] Name: KENYA REYES Address: home [address] [place] [address] [address] [place] [address]
--- OUTSIDE RECORDS SUMMARY | 2024-01-24 10:02 | XMS_ITS | Continuity of Care Document ---
Author Organization [facility] Address [address] [place] [address] [address] [place] [address]- Care Team Providers Care Special Systems Technician Name Role Phone Nirmala MUNOZ, Terese Primary Care Physician [place] [facility] [place] - 05/07/[address] [place] [address]- Allergies, Adverse Reactions, Alerts Substance Reaction Severity [...] 10/23/21 15:57:00 EDT, Route to Pharmacy Electronically, [facility] #[id number], Partial fill upon patientrequest if the prescription [...] 0 Refills, Maintenance, 10/23/21 15:57:00 EDT, Tablet, [facility][id number], Partial fill upon patient request if the prescription isfor a schedule II opioid drug., 163, cm, 10/20/21 7... Start Date: 10/23/21 Status: Ordered lisinopril 20 mg oral tablet 20 mg, 1, tablet, By Mouth, Daily, # 30 tablet, Refills 0, Tot. Refills 0, Maintenance, 10/23/21 15:58:00 EDT, Route to Pharmacy Electronically, [facility] #[id number], Partial fill upon patientrequest if the prescription [...] 0 Refills, Maintenance, 10/23/21 15:59:00 EDT, Tablet, [facility] #[id number], Partial fill upon patient request if the [...] Team Personnel Name: Rose Preston RN Position: [facility] RN Member Role: Primary Care Nurse Name: Silvia Nation RN Position: S RN Member Role: Primary Care Nurse Name: Katrin Albarran RN Position: S RN Member Role: Primary Care Nurse Name: Mayank Su Position: [facility] RN Member Role: Primary Care Nurse Name: Loida Ponce RN Position: [facility] RN Member Role: Primary Care Nurse Name: Karine Carver RN Position: [facility] RN Member Role: Primary Care Nurse Name: Stanley Akbar Jr, RN Position: [facility] RN Member Role: Primary Care Nurse Name: Rudy Michaud RN Position: [facility] RN Member Role: Primary Care Nurse Name: Philip LO, Aminta Position: [facility] RN Member Role: Primary Care Nurse Name: Pa Timmons RN Position: [facility] RN Member Role: Primary Care Nurse Address: Address: [address] [place] [address]- Name: Amber Louis RN Position: [facility] RN Member Role: Primary Care Nurse Name: Lanette Poe Position: [facility] [place] Office Staff Member Role: Lifetime Consulting Physician Name: Terese Silvestre NP Position: Reference Physician Member Role: PCP Address: Address: [address] [place] [address]- Name: Wayne Rivers RN Position: [facility] RN Member Role: Primary Care Nurse Name: Sailaja Correa RN Position: [facility] ED RN W/OE and Tasks Member Role: Primary Care Nurse Care Team Related Persons Name: RINA HUNT Name: RED ROSE Name: SERGIO ROSE Address: home [address] [place], [place] Name: KENYA REYES Address: home [address] [place] [address]
--- OUTSIDE RECORDS SUMMARY | 2024-01-24 10:02 | XMS_ITS | Continuity of Care Document ---
Author Organization [facility] Address [address], [address], [address] [place] [address]- Care Team Providers Care Integrated Program Teacher Name Role Phone Sera OLIVIER, Valorie Cassidy Primary Care Physician Encounter [facility] [place]CT R [id number] Date(s): 11/06/21 - 12/06/21 [facility] [address], [address], [address] [place] [id number] Attending Physician: Simran Samuel Admitting Physician: Admtr, Simran Referring Physician: Admtr, Ar8 Allergies, Adverse Reactions, Alerts Substance Reaction Severity Status penicillin Active sulfADIAZINE Active Vicodin Active Latex Active PHENobarbital Active Immunizations Given [...] 10/23/21 15:57:00 EDT, Route to Pharmacy Electronically, [facility] #[id number], Partial fill upon patientrequest if the prescription is for a schedule II op... Start Date: 10/23/21 Status: Ordered chlorthalidone 25 mg oral tablet 25 mg, 1, tablet, By Mouth, Daily, # 30 tablet, Refills 0, Tot. Refills 0, Maintenance, 10/23/21 15:57:00 EDT, Route to Pharmacy Electronically, [facility] #[id number], Partial fill upon patientrequest if the prescription is for a schedule II op... Start Date: 10/23/21 Status: Ordered cloNIDine 0.1 mg/24 hr transdermal film, extended release 1 patch, Topically, Every week, # 5 patch, 0 Refills, Maintenance, 10/23/21 15:58:00 EDT, Patch, [facility] #[id number], Partial fill upon patient request if the prescription is for a schedule II opioid drug., 163, cm, 10/20/21 7:50:00 EDT, Heigh... Start Date: 10/23/21 Status: Ordered Lipitor 80 mg oral tablet 1 tablet = 80 mg, By Mouth, Daily at bedtime, # 30 tablet, 0 Refills, Maintenance, 10/23/21 15:57:00 EDT, Tablet, [facility] #[id number], Partial fill upon patient request if the prescription isfor a schedule II opioid drug., 163, cm, 10/20/21 7... Start Date: 10/23/21 Status: Ordered lisinopril 20 mg oral tablet 20 mg, 1, tablet, By Mouth, Daily, # 30 tablet, Refills 0, Tot. Refills 0, Maintenance, 10/23/21 15:58:00 EDT, Route to Pharmacy Electronically, [facility] #[id number], Partial fill upon patientrequest if the prescription is for a schedule II op... Start Date: 10/23/21 Status: Ordered metoprolol 25 mg oral tablet 75 mg, 3, tablet, By Mouth, 2 times a day, # 180 tablet, Refills 0, Tot. Refills 0, Maintenance, 10/23/21 15:58:00 EDT, Route to Pharmacy Electronically, [facility] #[id number], Partial fill upon patient request if the prescription is for a sched... Start Date: 10/23/21 Status: Ordered OXcarbazepine 150 mg oral tablet 150 mg, 1, tablet, By Mouth, 2 times a day, # 60 tablet, Refills 0, Tot. Refills 0, Maintenance, 10/23/21 15:59:00 EDT, Route to Pharmacy Electronically, [facility] #[id number], Partial fill upon patient request if the prescription is for a sched... Start Date: 10/23/21 Status: Ordered oxybutynin 5 mg/24 hours oral tablet, extended release 1 tablet = 5 mg, By Mouth, Daily, # 30 tablet, 0 Refills, Maintenance, 10/23/21 15:58:00 EDT, XL Tablet, [facility] #[id number], Partial fill upon patient request if the prescription is for a schedule II opioid drug., 163makeda, 10/20/21 7:50:00 ED... Start Date: 10/23/21 Status: Ordered QUEtiapine 50 mg oral tablet 1 tablet = 50 mg, By Mouth, 2 times a day, # 60 tablet, 0 Refills, Maintenance, 10/23/21 15:59:00 EDT, Tablet, [facility] #[id number], Partial fill upon patient request if the prescription is for a schedule II opioid drug., makeda Rosas, 10/20/21 7:50... Start Date: 10/23/21 Status: Ordered [...] Sera OLIVIER , Valorie Cassidy Address: Address: [address] [place] [address]
--- OUTSIDE RECORDS SUMMARY | 2024-01-24 10:02 | XMS_ITS | Continuity of Care Document ---
Author Organization [facility] Address [address] [place] [address] ve [address] [place] [address]- Care Team Providers Care Maori Physiotherapist Name Role Phone Nirmala MUNOZ, Terese Primary Care Physician Encounter [facility] [place] Date(s): 05/05/23 - 06/04/[address] [place] [address]- Attending Physician: Simran Samuel Admitting Physician: [id number] Referring Physician: Admtr, Ar8 Allergies, Adverse Reactions, Alerts Substance Reaction Severity Status penicillin Active sulfADIAZINE Active PHENobarbital Active Vicodin Active Demerol Active Latex Active Immunizations Given and Recorded [...] 10/23/21 15:57:00 EDT, Route to Pharmacy Electronically, [facility] #[id number], Partial fill upon patientrequest if the prescription [...] 0 Refills, Maintenance, 10/23/21 15:57:00 EDT, Tablet, [facility] #[id number], Partial fill upon patient request if the prescription isfor a schedule II opioid drug., 163, cm, 10/20/21 7... Start Date: 10/23/21 Status: Ordered lisinopril 20 mg oral tablet 20 mg, 1, tablet, By Mouth, Daily, # 30 tablet, Refills 0, Tot. Refills 0, Maintenance, 10/23/21 15:58:00 EDT, Route to Pharmacy Electronically, [facility] #[id number], Partial fill upon patientrequest if the prescription [...] 0 Refills, Maintenance, 10/23/21 15:59:00 EDT, Tablet, [facility] #[id number], Partial fill upon patient request if the [...] Care Nurse Name: Loida Ponce RN Position: [facility] RN Member Role: Primary Care Nurse Name: Karine Carver RN Position: [facility] RN Member Role: Primary Care Nurse Name: Stanley Akbar Jr, RN Position: [facility] RN Member Role: Primary Care Nurse Name: Rudy Michaud RN Position: [facility] RN Member Role: Primary Care Nurse Name: Aminta Palacios LPN Position: [facility] RN Member Role: Primary Care Nurse Name: Pa Timmons RN Position: [facility] RN Member Role: Primary Care Nurse Address: Address: [address] [place] [address]- Name: Amber Louis RN Position: [facility] RN Member Role: Primary Care Nurse Name: Lanette Poe Position: [facility] [place] Office Staff Member Role: Lifetime Consulting Physician Name: Terese Silvestre NP Position: Reference Physician Member Role: PCP Address: Address: [address] [place] [address]- Name: Wayne Rivers RN Position: [facility] RN Member Role: Primary Care Nurse Name: Sailaja Correa RN Position: [facility] ED RN W/OE and Tasks Member Role: Primary Care Nurse Care Team Related Persons Name: RINA HUNT Name: RED ROSE Name: SERGIO ROSE Address: home [address] [place] [address] Name: KENYA REYES Address: home [address] [place] [address]
--- OUTSIDE RECORDS SUMMARY | 2024-01-24 10:02 | XMS_ITS | Continuity of Care Document ---
Author Organization [facility] Address [address] [place] [address] [address] [place] [address]- Care Team Providers Care Automobile Upholsterer Name Role Phone Sera OLIVIER, Valorie Cassidy Primary Care Physician [place] [facility] [place] - 04/21/[address] [place] [address]- Allergies, Adverse Reactions, Alerts Substance Reaction Severity Status penicillin Active sulfADIAZINE Active Vicodin Active Latex Active PHENobarbital Active Demerol Active Immunizations Given and Recorded [...] 10/23/21 15:57:00 EDT, Route to Pharmacy Electronically, [facility] #[id number], Partial fill upon patientrequest if the prescription [...] 0 Refills, Maintenance, 10/23/21 15:57:00 EDT, Tablet, [email or web address] #[id number], Partial fill upon patient request if the prescription isfor a schedule II opioid drug., 163, cm, 10/20/21 7... Start Date: 10/23/21 Status: Ordered lisinopril 20 mg oral tablet 20 mg, 1, tablet, By Mouth, Daily, # 30 tablet, Refills 0, Tot. Refills 0, Maintenance, 10/23/21 15:58:00 EDT, Route to Pharmacy Electronically, [facility] #[id number], Partial fill upon patientrequest if the prescription [...] 0 Refills, Maintenance, 10/23/21 15:59:00 EDT, Tablet, [email or web address] #[id number], Partial fill upon patient request if the [...] Type Response Smoking Status Cigars or pipes sliverio y within last 30 days entered on: [...] Care Nurse Name: Loida Ponce RN Position: [facility] RN Member Role: Primary Care Nurse Name: Sera OLIVIER , Valorie Cassidy Position: Reference Physician Member Role: PCP Address: Address: [address] [place], [place] - [place] Name: Karine Carver RN Position: [facility] RN Member Role: Primary Care Nurse Name: Stanley Akbar Jr, RN Position: S RN Member Role: Primary Care Nurse Name: Rudy Michaud RN Position: [facility] RN Member Role: Primary Care Nurse Name: Philip LO, Aminta Position: [facility] RN Member Role: Primary Care Nurse Name: Pa Timmons RN Position: [facility] RN Member Role: Primary Care Nurse Address: Address: [place] [address]- Name: Amber Louis RN Position: [facility] RN Member Role: Primary Care Nurse Name: Lanette Poe Position: [facility] [place] Office Staff Member Role: Lifetime Consulting Physician Name: Wayne Rivers RN Position: [facility] RN Member Role: Primary Care Nurse Name: Sailaja Correa RN Position: [facility] ED RN W/OE and Tasks Member Role: Primary Care Nurse Care Team Related Persons Name: RINA HUNT Name: RED ROSE Name: SERGIO ROSE Address: home [address] [place] [address] Name: KENYA REYES Address: home [address] [place] [address]
--- OUTSIDE RECORDS SUMMARY | 2024-01-24 10:02 | XMS_ITS | Continuity of Care Document ---
Author Organization [facility] Address [address] [place] [address]- Care Team Providers Care Stringed Instrument Tuner Name Role Phone Sera OLIVIER, Valorie Cassidy Primary Care Physician En[place] [facility] [place] Date(s): 05/29/19 - 06/08/[address] [address]- [facility] Attending Physician: Simran Samuel Admitting Physician: Simran Samuel Referring Physician: AdmtrSimran Allergies, Adverse Reactions, Alerts Substance Reaction Severity [...]
--- OUTSIDE RECORDS SUMMARY | 2024-01-24 10:02 | XMS_ITS | Continuity of Care Document ---
Author Organization [facility] Address [address] [place] [address] [address] [place] [address]- Care Team Providers Care Military Police Officer Name Role Phone Sera OLIVIER, Valorie Cassidy Primary Care Physician Encounter [facility] [place] Date(s): 03/08/23 - 03/15/[address] [place], [place] [address] Attending Physician: Helder Yanez MD Allergies, Adverse Reactions, Alerts Substance Reaction [...] 10/23/21 15:57:00 EDT, Route to Pharmacy Electronically, [facility] #[id number], Partial fill upon patientrequest if the prescription [...] 0 Refills, Maintenance, 10/23/21 15:57:00 EDT, Tablet, [facility] #[id number], Partial fill upon patient request if the prescription isfor a schedule II opioid drug., 163, cm, 10/20/21 7... Start Date: 10/23/21 Status: Ordered lisinopril 20 mg oral tablet 20 mg, 1, tablet, By Mouth, Daily, # 30 tablet, Refills 0, Tot. Refills 0, Maintenance, 10/23/21 15:58:00 EDT, Route to Pharmacy Electronically, [facility] #[id number], Partial fill upon patientrequest if the prescription [...] 0 Refills, Maintenance, 10/23/21 15:59:00 EDT, Tablet, [facility] #[id number], Partial fill upon patient request if the [...] oldest [Reference Range]: 1 Height 163 cm (03/08/23 8:40 AM) Pulse Rate [55-90 bpm] 78 bpm (03/08/23 8:40 AM) Blood Pressure [90-138/55-84 mm Hg] 100/ 60mm Hg (03/08/23 8:40 AM) Temperature [96.8-100.4 DegF] 97.1 DegF (03/08/23 8:40 AM) Blood pressure sites Arm, left (03/08/23 8:40 AM) Temperature Route Temporal (03/08/23 8:40 AM) Social History Social History Type Response Smoking Status Cigars or pipes silverio y within last 30 days entered on: 10/12/21 Sex Patient Care team information Care Team Personnel Name: Rose Preston RN Position: [facility] RN Member Role: Primary Care Nurse Name: Silvia Nation RN Position: [facility] RN Member Role: Primary Care Nurse Name: Katrin Albarran RN Position: [facility] RN Member Role: Primary Care Nurse Name: Mayank Su Position: [facility] RN Member Role: Primary Care Nurse Name: Loida Ponce RN Position: [facility] RN Member Role: Primary Care Nurse Name: Sera OLIVIER , Valorie Cassidy Position: Reference Physician Member Role: PCP Address: Address: [address] [place] [address]- Name: Karine Carver RN Position: [facility] RN Member Role: Primary Care Nurse Name: Stanley Akbar Jr, RN Position: [facility] RN Member Role: Primary Care Nurse Name: Rudy Michaud RN Position: [facility] RN Member Role: Primary Care Nurse Name: Aminta Palacios LPN Position: [facility] RN Member Role: Primary Care Nurse Name: Pa Timmons RN Position: [facility] RN Member Role: Primary Care Nurse Address: Address: [place] [address]- Name: Amber Louis RN Position: [facility] RN Member Role: Primary Care Nurse Name: Lanette Poe Position: [facility] [place] Office Staff Member Role: Lifetime Consulting Physician Name: Wayne Rivers RN Position: [facility] RN Member Role: Primary Care Nurse Name: Sailaja Correa RN Position: [facility] ED RN W/OE and Tasks Member Role: Primary Care Nurse Care Team Related Persons Name: MARILEE RINA Name: RED ROSE Name: SERGIO ROSE Address: home [address] [place] [address] Name: KENYA REYES Address: home [address] [place] [address]
--- OUTSIDE RECORDS SUMMARY | 2024-01-24 10:02 | XMS_ITS | Continuity of Care Document ---
Author Organization [facility] Address [address] [place] [address]- Care Team Providers Care Firmware Manager Name Role Phone Sera OLIVIER, Valorie Cassidy Primary Care Physician Encounter [facility] [place]CT R [id number] Date(s): 12/01/22 - 12/31/22 [facility] [address] [place], [place] [address] Attending Physician: AdmSimran rodrigez Admitting Physician: Admtr, Ar8 Referring Physician: Admtr, Ar8 Allergies, Adverse Reactions, Alerts Substance Reaction Severity Status penicillin Active sulfADIAZINE Active Vicodin Active Demerol Active PHENobarbital Active Latex Active Immunizations Given and Recorded [...] 10/23/21 15:57:00 EDT, Route to Pharmacy Electronically, [facility] #[id number], Partial fill upon patientrequest if the prescription [...] 0 Refills, Maintenance, 10/23/21 15:57:00 EDT, Tablet, [facility] #[id number], Partial fill upon patient request if the prescription isfor a schedule II opioid drug., 163, cm, 10/20/21 7... Start Date: 10/23/21 Status: Ordered lisinopril 20 mg oral tablet 20 mg, 1, tablet, By Mouth, Daily, # 30 tablet, Refills 0, Tot. Refills 0, Maintenance, 10/23/21 15:58:00 EDT, Route to Pharmacy Electronically, [facility] #[id number], Partial fill upon patientrequest if the prescription [...] 10/23/21 15:58:00 EDT, Route to Pharmacy Electronically, [facility] #[id number], Partial fill upon patient request if the prescription is for a sched... Start Date: 10/23/21 Status: Ordered QUEtiapine 50 mg oral tablet 1 tablet = 50 mg, By Mouth, 2 times a day, # 60 tablet, 0 Refills, Maintenance, 10/23/21 15:59:00 EDT, Tablet, [facility] #[id number], Partial fill upon patient request if the [...] Physician Member Role: PCP Address: Address: [address] [place], [place] [address] Name: Lanette Poe Position: [facility] [place] Office Staff Member Role: Lifetime Consulting Physician Care Team Related Persons Name: RINA HUNT Name: RED ROSE Name: SERGIO ROSE Address: home [address] [place] [address] Name: KENYA REYES Address: [address] [place] [address]
--- OUTSIDE RECORDS SUMMARY | 2024-01-24 10:02 | XMS_ITS | Continuity of Care Document ---
Author Organization [facility] Address [address] [place] [address] ve [address] [place] [address]- Care Team Providers Care Test Engine Evaluator Name Role Phone Sera OLIVIER, Valorie Cassidy Primary Care Physician Encounter [facility] [place] Date(s): 03/23/23 - 03/30/[address] [place] [address]- Attending Physician: Gregg Monet DO Allergies, Adverse Reactions, Alerts Substance Reaction [...] 10/23/21 15:57:00 EDT, Route to Pharmacy Electronically, [facility] #[id number], Partial fill upon patientrequest if the prescription [...] 0 Refills, Maintenance, 10/23/21 15:57:00 EDT, Tablet, [facility] #[id number], Partial fill upon patient request if the prescription isfor a schedule II opioid drug., 163, cm, 10/20/21 7... Start Date: 10/23/21 Status: Ordered lisinopril 20 mg oral tablet 20 mg, 1, tablet, By Mouth, Daily, # 30 tablet, Refills 0, Tot. Refills 0, Maintenance, 10/23/21 15:58:00 EDT, Route to Pharmacy Electronically, [facility] #[id number], Partial fill upon patientrequest if the prescription [...] 0 Refills, Maintenance, 10/23/21 15:59:00 EDT, Tablet, [facility] #[id number], Partial fill upon patient request if the [...] oldest [Reference Range]: 1 Height 163 cm (03/23/23 9:54 AM) Pulse Rate [55-90 bpm] 85 bpm (03/23/23 9:54 AM) Blood Pressure [90-138/55-84 mm Hg] 153/ 92mm Hg *H* (03/23/23 9:54 AM) Temperature [96.8-100.4 DegF] 97.8 DegF (03/23/23 9:54 AM) Blood pressure sites Arm, right (03/23/23 9:54 AM) Temperature Route Temporal (03/23/23 9:54 AM) Social History Social History Type Response Smoking Status Cigars or pipes silverio y within last 30 days entered on: 10/12/21 Sex Patient Care team information Care Team Personnel Name: Rose Preston RN Position: [facility] RN Member Role: Primary Care Nurse Name: Silvia Nation RN Position: [facility] RN Member Role: Primary Care Nurse Name: Katrin Albarran RN Position: [facility] RN Member Role: Primary Care Nurse Name: Mayank Su Position: [facility] RN Member Role: Primary Care Nurse Name: Loida Ponce RN Position: [facility] RN Member Role: Primary Care Nurse Name: Valorie Zamora MD Position: Reference Physician Member Role: PCP Address: Address: [address] [place] [address]- Name: Karine Carver RN Position: [facility] RN Member Role: Primary Care Nurse Name: Stanley Akbar Jr, RN Position: [facility] RN Member Role: Primary Care Nurse Name: Rudy Michaud RN Position: [facility] RN Member Role: Primary Care Nurse Name: Philip LO, Aminta Position: [facility] RN Member Role: Primary Care Nurse Name: Pa Timmons RN Position: [facility] RN Member Role: Primary Care Nurse Address: Address: [place] [address]- Name: Amber Louis RN Position: [facility] RN Member Role: Primary Care Nurse Name: Lanette Poe Position: [facility] Office Staff Member Role: Lifetime Consulting Physician Name: Wayne Rivers RN Position: [facility] RN Member Role: Primary Care Nurse Name: Sailaja Correa RN Position: [facility] ED RN W/OE and Tasks Member Role: Primary Care Nurse Care Team Related Persons Name: ANISHA HUNTDIA Name: RED ROSE Name: SERGIO ROSE Address: home [address] [place] [address] Name: KENYA REYES Address: home [address] [place] [address]
--- OUTSIDE RECORDS SUMMARY | 2024-01-24 10:02 | XMS_ITS | Continuity of Care Document ---
Author Organization [facility] Address [address] [place] [address] [address] [place] [address]- Care Team Providers Care Deputy Chief Executive Name Role Phone Nirmala MUNOZ, Terese Primary Care Physician [phone] [place] [facility] [place] - 10/19/[address] [place] [address]- Attending Physician: Bridger Gaytan MD Allergies, Adverse Reactions, Alerts Substance Reaction [...] 10/23/21 15:57:00 EDT, Route to Pharmacy Electronically, [facility] #[id number], Partial fill upon patientrequest if the prescription [...] 0 Refills, Maintenance, 10/23/21 15:57:00 EDT, Tablet, [facility] #[id number], Partial fill upon patient request if the prescription isfor a schedule II opioid drug., 163, cm, 10/20/21 7... Start Date: 10/23/21 Status: Ordered lisinopril 20 mg oral tablet 20 mg, 1, tablet, By Mouth, Daily, # 30 tablet, Refills 0, Tot. Refills 0, Maintenance, 10/23/21 15:58:00 EDT, Route to Pharmacy Electronically, [facility] #[id number], Partial fill upon patientrequest if the prescription [...] 0 Refills, Maintenance, 10/23/21 15:59:00 EDT, Tablet, [facility] #[id number], Partial fill upon patient request if the [...] oldest [Reference Range]: 1 Height 163 cm (10/12/23 3:11 PM) Pulse Rate [55-90 bpm] 78 bpm (10/12/23 3:11 PM) Blood Pressure [90-138/55-84 mm Hg] 148/ 91mm Hg *H* (10/12/23 3:11 PM) Temperature [96.8-100.4 DegF] 97.6 DegF (10/12/23 3:11 PM) Blood pressure sites Arm, left (10/12/23 3:11 PM) Temperature Route Temporal (10/12/23 3:11 PM) Social History Social History Type Response Smoking Status Cigars or pipes silverio y within last 30 days entered on: 10/12/21 Sex Patient Care team information Care Team Personnel Name: Rose Preston RN Position: [facility] RN Member Role: Primary Care Nurse Name: Katrin Albarran RN Position: S RN Member Role: Primary Care Nurse Name: Mayank Su RN Position: [facility] RN Member Role: Primary Care Nurse Name: Loida Ponce RN Position: [facility] RN Member Role: Primary Care Nurse Name: Karine Carver RN Position: [facility] RN Member Role: Primary Care Nurse Name: Stanley Akbar Jr, RN Position: [facility] RN Member Role: Primary Care Nurse Name: Rudy Michaud RN Position: [facility] RN Member Role: Primary Care Nurse Name: Philip LO, Aminta Position: [facility] RN Member Role: Primary Care Nurse Name: Amber Louis RN Position: [facility] RN Member Role: Primary Care Nurse Name: Lanette Poe Position: [facility] [place] Office Staff Member Role: Lifetime Consulting Physician Name: Terese Silvestre NP Position: Reference Physician Member Role: PCP Address: Address: [address] [place] [address] Name: Wayne Rivers RN Position: [facility] RN Member Role: Primary Care Nurse Name: Sailaja Correa RN Position: [facility] ED RN W/OE and Tasks Member Role: Primary Care Nurse Care Team Related Persons Name: RINA HUNT Name: RED ROSE Name: SERGIO ROSE Address: home [address] [place] [address] Name: KENYA REYES Address: home [address] [place] [address]
--- OUTSIDE RECORDS SUMMARY | 2024-01-24 10:02 | XMS_ITS | Continuity of Care Document ---
Author Organization [facility] Address [address] [place] [address]- Care Team Providers Care Hospital Insurance Clerk Name Role Phone Sera OLIVIER, Valorie Cassidy Primary Care Physician Encounter [facility] [place] Date(s): 11/09/21 - 12/09/21 [facility] [address] [place] [address]- Attending Physician: Simran Samuel Admitting Physician: AdmSimran rodrigez Referring Physician: Simran Samuel Allergies, Adverse Reactions, Alerts Substance Reaction Severity [...] 10/23/21 15:57:00 EDT, Route to Pharmacy Electronically, [facility] #[id number], Partial fill upon patientrequest if the prescription is for a schedule II op... Start Date: 10/23/21 Status: Ordered chlorthalidone 25 mg oral tablet 25 mg, 1, tablet, By Mouth, Daily, # 30 tablet, Refills 0, Tot. Refills 0, Maintenance, 10/23/21 15:57:00 EDT, Route to Pharmacy Electronically, [facility] #[id number], Partial fill upon patientrequest if the prescription is for a schedule II op... Start Date: 10/23/21 Status: Ordered cloNIDine 0.1 mg/24 hr transdermal film, extended release 1 patch, Topically, Every week, # 5 patch, 0 Refills, Maintenance, 10/23/21 15:58:00 EDT, Patch, [facility] #[id number], Partial fill upon patient request if the prescription is for a schedule II opioid drug., 163, cm, 10/20/21 7:50:00 EDT, Heigh... Start Date: 10/23/21 Status: Ordered Lipitor 80 mg oral tablet 1 tablet = 80 mg, By Mouth, Daily at bedtime, # 30 tablet, 0 Refills, Maintenance, 10/23/21 15:57:00 EDT, Tablet, [facility] #[id number], Partial fill upon patient request if the prescription isfor a schedule II opioid drug., 163, cm, 10/20/21 7... Start Date: 10/23/21 Status: Ordered lisinopril 20 mg oral tablet 20 mg, 1, tablet, By Mouth, Daily, # 30 tablet, Refills 0, Tot. Refills 0, Maintenance, 10/23/21 15:58:00 EDT, Route to Pharmacy Electronically, [facility] #[id number], Partial fill upon patientrequest if the prescription is for a schedule II op... Start Date: 10/23/21 Status: Ordered metoprolol 25 mg oral tablet 75 mg, 3, tablet, By Mouth, 2 times a day, # 180 tablet, Refills 0, Tot. Refills 0, Maintenance, 10/23/21 15:58:00 EDT, Route to Pharmacy Electronically, [facility] #[id number], Partial fill upon patient request if the prescription is for a sched... Start Date: 10/23/21 Status: Ordered OXcarbazepine 150 mg oral tablet 150 mg, 1, tablet, By Mouth, 2 times a day, # 60 tablet, Refills 0, Tot. Refills 0, Maintenance, 10/23/21 15:59:00 EDT, Route to Pharmacy Electronically, [facility] #[id number], Partial fill upon patient request if the prescription is for a sched... Start Date: 10/23/21 Status: Ordered oxybutynin 5 mg/24 hours oral tablet, extended release 1 tablet = 5 mg, By Mouth, Daily, # 30 tablet, 0 Refills, Maintenance, 10/23/21 15:58:00 EDT, XL Tablet, [facility] #[id number], Partial fill upon patient request if the prescription is for a schedule II opioid drug., 163, cm, 10/20/21 7:50:00 ED... Start Date: 10/23/21 Status: Ordered QUEtiapine 50 mg oral tablet 1 tablet = 50 mg, By Mouth, 2 times a day, # 60 tablet, 0 Refills, Maintenance, 10/23/21 15:59:00 EDT, Tablet, [facility] #[id number], Partial fill upon patient request if the prescription is for a schedule II opioid drug., 163, makeda, 10/20/21 7:50... Start Date: 10/23/21 Status: Ordered [...] Sera OLIVIER , Valorie Cassidy Address: Address: [address] [place] [id number]
--- OUTSIDE RECORDS SUMMARY | 2024-01-24 10:02 | XMS_ITS | Continuity of Care Document ---
Author Organization [facility] Address [address] [place] [address] ve [address] [place] [address]- Care Team Providers Care Meat Stuffer Name Role Phone Sera OLIVIER, Valorie Cassidy Primary Care Physician Encounter [facility] [place] Date(s): 03/08/23 - 04/29/[address] [place] [address]- Attending Physician: Penny Merino MD Allergies, Adverse Reactions, Alerts Substance Reaction [...] 396 Gm, 1 Refills, Maintenance, 04/01/23 14:19:00 [facility], Partial fill upon patient request if the prescription is fora schedule II opioid drug., apply to donor site and henri... Start Date: 04/01/23 Status: Ordered aspirin 81 mg oral tablet, chewable 81 mg, 1, tablet, By Mouth, Daily, # 30 tablet, Refills 0, Tot. Refills 0, Maintenance, 10/23/21 15:57:00 EDT, Route to Pharmacy Electronically, [facility] #[id number], Partial fill upon patientrequest if the prescription [...] 0 Refills, Maintenance, 10/23/21 15:57:00 EDT, Tablet, [facility] #[id number], Partial fill upon patient request if the prescription isfor a schedule II opioid drug., 163, cm, 10/20/21 7... Start Date: 10/23/21 Status: Ordered lisinopril 20 mg oral tablet 20 mg, 1, tablet, By Mouth, Daily, # 30 tablet, Refills 0, Tot. Refills 0, Maintenance, 10/23/21 15:58:00 EDT, Route to Pharmacy Electronically, [facility] #[id number], Partial fill upon patientrequest if the prescription [...] 0 Refills, Maintenance, 10/23/21 15:59:00 EDT, Tablet, [facility] #[id number], Partial fill upon patient request if the [...] Condition Confirmation Course Effective Dates Status H ealt Status Informant Bipolar I disorder Confirmed Active [...] Primary Care Nurse Name: Mayank Su Position: [facility] RN Member Role: Primary Care Nurse Name: Loida Ponce RN Position: S RN Member Role: Primary Care Nurse Name: Valorie Zamora MD Position: Reference Physician Member Role: PCP Address: Address: [address] [place], [place] - [place] Name: Karine Carver RN Position: [facility] RN Member Role: Primary Care Nurse Name: Stanley Akbar Jr, RN Position: S RN Member Role: Primary Care Nurse Name: Rudy Michaud RN Position: [facility] RN Member Role: Primary Care Nurse Name: Philip LO, Sole Position: [facility] RN Member Role: Primary Care Nurse Name: Pa Timmons RN Position: [facility] RN Member Role: Primary Care Nurse Address: Address: [place] [address]- [place] Name: Amber Louis RN Position: [facility] RN Member Role: Primary Care Nurse Name: Lanette Poe Position: [facility] [place] Office Staff Member Role: Lifetime Consulting Physician Name: Wayne Rivers RN Position: [facility] RN Member Role: Primary Care Nurse Name: Sailaja Correa RN Position: [facility] ED RN W/OE and Tasks Member Role: Primary Care Nurse Care Team Related Persons Name: RINA HUNT Name: RED ROSE Name: SERGIO ROSE Address: home [address] [place] [address] Name: KENYA REYES Address: home [address] [place] [address]
--- OUTSIDE RECORDS SUMMARY | 2024-01-24 10:02 | XMS_ITS | Continuity of Care Document ---
Author Organization [facility] Address [address] [place] [address]- Care Team Providers Care Certified Nurse Operating Room Name Role Phone Sera OLIVIER, Valorie Cassidy Primary Care Physician [place] [facility] [place]/22 [facility] [address] [place] [address]- Allergies, Adverse Reactions, Alerts Substance Reaction Severity [...] 10/23/21 15:57:00 EDT, Route to Pharmacy Electronically, [facility] #[id number], Partial fill upon patientrequest if the prescription is for a schedule II op... Start Date: 10/23/21 Status: Ordered chlorthalidone 25 mg oral tablet 25 mg, 1, tablet, By Mouth, Daily, # 30 tablet, Refills 0, Tot. Refills 0, Maintenance, 10/23/21 15:57:00 EDT, Route to Pharmacy Electronically, [facility] #[id number], Partial fill upon patientrequest if the prescription is for a schedule II op... Start Date: 10/23/21 Status: Ordered cloNIDine 0.1 mg/24 hr transdermal film, extended release 1 patch, Topically, Every week, # 5 patch, 0 Refills, Maintenance, 10/23/21 15:58:00 EDT, Patch, [facility] #[id number], Partial fill upon patient request if the prescription is for a schedule II opioid drug., 163, cm, 10/20/21 7:50:00 EDT, Heigh... Start Date: 10/23/21 Status: Ordered Home Blood Pressure Monitor See Instructions, # 1 each, Refills 0, Tot. Refills 0, Maintenance, check BP daily, diagnosis: Stroke with hypertension, 02/23/22 12:28:00 EST, Supply Start Date: 02/23/22 Status: Ordered Lipitor 80 mg oral tablet 1 tablet = 80 mg, By Mouth, Daily at bedtime, # 30 tablet, 0 Refills, Maintenance, 10/23/21 15:57:00 EDT, Tablet, [facility] #[id number], Partial fill upon patient request if the prescription isfor a schedule II opioid drug., 163, cm, 10/20/21 7... Start Date: 10/23/21 Status: Ordered lisinopril 20 mg oral tablet 20 mg, 1, tablet, By Mouth, Daily, # 30 tablet, Refills 0, Tot. Refills 0, Maintenance, 10/23/21 15:58:00 EDT, Route to Pharmacy Electronically, [facility] #[id number], Partial fill upon patientrequest if the prescription is for a schedule II op... Start Date: 10/23/21 Status: Ordered metoprolol 25 mg oral tablet 75 mg, 3, tablet, By Mouth, 2 times a day, # 180 tablet, Refills 0, Tot. Refills 0, Maintenance, 10/23/21 15:58:00 EDT, Route to Pharmacy Electronically, [facility] #[id number], Partial fill upon patient request if the prescription is for a sched... Start Date: 10/23/21 Status: Ordered OXcarbazepine 150 mg oral tablet 150 mg, 1, tablet, By Mouth, 2 times a day, # 60 tablet, Refills 0, Tot. Refills 0, Maintenance, 10/23/21 15:59:00 EDT, Route to Pharmacy Electronically, [facility] #[id number], Partial fill upon patient request if the prescription is for a sched... Start Date: 10/23/21 Status: Ordered oxybutynin 5 mg/24 hours oral tablet, extended release 1 tablet = 5 mg, By Mouth, Daily, # 30 tablet, 0 Refills, Maintenance, 10/23/21 15:58:00 EDT, XL Tablet, [facility] #[id number], Partial fill upon patient request if the prescription is for a schedule II opioid drug., 163, cm, 10/20/21 7:50:00 ED... Start Date: 10/23/21 Status: Ordered QUEtiapine 50 mg oral tablet 1 tablet = 50 mg, By Mouth, 2 times a day, # 60 tablet, 0 Refills, Maintenance, 10/23/21 15:59:00 EDT, Tablet, [facility] #[id number], Partial fill upon patient request if the [...] Care team information Care Team Personnel Name: Lanette Montemayor Position: [facility] Office Staff Member Role: Lifetime Consulting Physician Name: eSra OLIVIER , Valorie Cassidy Position: Reference Physician Member Role: PCP Address: Address: [address] [place] [address]- Care Team Related Persons Name: RINA HUNT Name: RED ROSE Name: SERGIO ROSE Address: home [address] [place] [address] Name: KENYA REYES Address: home [address] [place] [address]
--- OUTSIDE RECORDS SUMMARY | 2024-01-24 10:02 | XMS_ITS | Continuity of Care Document ---
Author Organization [facility] Address [address] [place] [address] ve [address] [place] [address]- Care Team Providers Care Decorative Engraver Apprentice Name Role Phone Nirmala MUNOZ, Terese Primary Care Physician [phone] Encounter [facility] [place] [id number] Date(s): 10/12/23 - 11/11/[address] [place], [place] [address] Attending Physician: Admtr, [id number] Admitting Physician: [...] 10/23/21 15:57:00 EDT, Route to Pharmacy Electronically, [facility] #[id number], Partial fill upon patientrequest if the prescription [...] 0 Refills, Maintenance, 10/23/21 15:57:00 EDT, Tablet, [facility] #[id number], Partial fill upon patient request if the prescription isfor a schedule II opioid drug., 163, cm, 10/20/21 7... Start Date: 10/23/21 Status: Ordered lisinopril 20 mg oral tablet 20 mg, 1, tablet, By Mouth, Daily, # 30 tablet, Refills 0, Tot. Refills 0, Maintenance, 10/23/21 15:58:00 EDT, Route to Pharmacy Electronically, [facility] #[id number], Partial fill upon patientrequest if the prescription [...] 0 Refills, Maintenance, 10/23/21 15:59:00 EDT, Tablet, [facility] #[id number], Partial fill upon patient request if the [...] Care Team Personnel Name: Lanette Montemayor Position: [facility] Office Staff Member Role: Lifetime Consulting Physician Name: Rose Preston RN Position: [facility] RN Member Role: Primary Care Nurse Name: Katrin Albarran RN Position: [facility] RN Member Role: Primary Care Nurse Name: Mayank Su RN Position: [facility] RN Member Role: Primary Care Nurse Name: Loida Ponce RN Position: [facility] RN Member Role: Primary Care Nurse Name: Karine Carver RN Position: [facility] RN Member Role: Primary Care Nurse Name: Stanley Akbar Jr, RN Position: [facility] RN Member Role: Primary Care Nurse Name: Rudy Michaud RN Position: [facility] RN Member Role: Primary Care Nurse Name: Philip LO, Aminta Position: [facility] RN Member Role: Primary Care Nurse Name: Amber Louis RN Position: [facility] RN Member Role: Primary Care Nurse Name: Terese Silvestre NP Position: Reference Physician Member Role: PCP Address: Address: [address] [place] [address] Name: Wayne Rivers RN Position: [facility] RN Member Role: Primary Care Nurse Name: Sailaja Correa RN Position: [facility] ED RN W/OE and Tasks Member Role: Primary Care Nurse Care Team Related Persons Name: RINA HUNT Name: RED ROSE Name: SERGIO ROSE Address: home [address] [place] [address] Name: KENYA REYES Address: home [address] [place] [address]
--- OUTSIDE RECORDS SUMMARY | 2024-01-24 10:02 | XMS_ITS | Continuity of Care Document ---
Author Organization [facility] Address [address] [place] [address] [address] [place] [address]- Care Team Providers Care Campaign Analyst Name Role Phone Nirmala MUNOZ, Terese Primary Care Physician En[place] [facility] [place](s): 04/20/23 - 05/20/[address] [place] [address]- Allergies, Adverse Reactions, Alerts Substance Reaction Severity [...] 10/23/21 15:57:00 EDT, Route to Pharmacy Electronically, [facility] #[id number], Partial fill upon patientrequest if the prescription [...] 0 Refills, Maintenance, 10/23/21 15:57:00 EDT, Tablet, [facility] #[id number], Partial fill upon patient request if the prescription isfor a schedule II opioid drug., 163, cm, 10/20/21 7... Start Date: 10/23/21 Status: Ordered lisinopril 20 mg oral tablet 20 mg, 1, tablet, By Mouth, Daily, # 30 tablet, Refills 0, Tot. Refills 0, Maintenance, 10/23/21 15:58:00 EDT, Route to Pharmacy Electronically, [facility] #[id number], Partial fill upon patientrequest if the prescription [...] 0 Refills, Maintenance, 10/23/21 15:59:00 EDT, Tablet, [facility] #[id number], Partial fill upon patient request if the [...] Team Personnel Name: Rose Preston RN Position: [facility] RN Member Role: Primary Care Nurse Name: Katrin Albarran RN Position: S RN Member Role: Primary Care Nurse Name: Mayank Su Position: S RN Member Role: Primary Care Nurse Name: Loida Ponce RN Position: [facility] RN Member Role: Primary Care Nurse Name: Karine Carver RN Position: [facility] RN Member Role: Primary Care Nurse Name: Stanley Akbar Jr, RN Position: [facility] RN Member Role: Primary Care Nurse Name: Rudy Michaud RN Position: [facility] RN Member Role: Primary Care Nurse Name: Aminta Palacios LPN Position: [facility] RN Member Role: Primary Care Nurse Name: Pa Timmons RN Position: [facility] RN Member Role: Primary Care Nurse Address: Address: [address] [place] [address]- Name: Amber Louis RN Position: [facility] RN Member Role: Primary Care Nurse Name: Lanette Poe Position: [facility] [place] Office Staff Member Role: Lifetime Consulting Physician Name: Terese Silvestre NP Position: Reference Physician Member Role: PCP Address: Address: [address] [place] [address]- Name: Wayne Rivers RN Position: [facility] RN Member Role: Primary Care Nurse Name: Sailaja Correa RN Position: [facility] ED RN W/OE and Tasks Member Role: Primary Care Nurse Care Team Related Persons Name: RINA HUNT Name: RED ROSE Name: SERGIO ROSE Address: home [address] [place], [place] Name: KENYA REYES Address: home [address] [place] [address]
--- OUTSIDE RECORDS SUMMARY | 2024-01-24 10:02 | XMS_ITS | Continuity of Care Document ---
Author Organization [facility] o[facility] Address [address] [place] [address] [address] [place] [address]- Care Team Providers Care Shredder Tender Peat Name Role Phone Nirmala MUNOZ, Terese Primary Care Physician Encounter [facility] [place] [facility] [place] [id number] Date(s): 10/11/23 - 10/18/23 [facility] [address] [place] [id number] Attending Physician: Daljit Coyle MD Referring Physician: [...] 10/23/21 15:57:00 EDT, Route to Pharmacy Electronically, [facility] #[id number], Partial fill upon patientrequest if the prescription [...] 0 Refills, Maintenance, 10/23/21 15:57:00 EDT, Tablet, [facility] #[id number], Partial fill upon patient request if the prescription isfor a schedule II opioid drug., 163, cm, 10/20/21 7... Start Date: 10/23/21 Status: Ordered lisinopril 20 mg oral tablet 20 mg, 1, tablet, By Mouth, Daily, # 30 tablet, Refills 0, Tot. Refills 0, Maintenance, 10/23/21 15:58:00 EDT, Route to Pharmacy Electronically, [facility] #[id number], Partial fill upon patientrequest if the prescription [...] 0 Refills, Maintenance, 10/23/21 15:59:00 EDT, Tablet, [facility] #[id number], Partial fill upon patient request if the [...] oldest [Reference Range]: 1 Height 163 cm (10/11/23 11:15 AM) Social History Social History Type Response Smoking Status Cigars or pipes silverio y within last 30 days entered on: 10/12/21 Sex Note * Rubi Quinn: PERFORM Event Display: Patient Education/Instruction Authored Date: [id number] Ambulatory Adult Visit Summary [facility] Pl[facility] Surgery [address] [place] [id number] Name: ANOOP NAZARIO : 1955?? Visit: 10/11/2023 10:48?? Ambulatory Visit Instructions ?? Your Care Team Primary Care Provider Nirmala MUNOZ, Terese? This Visit Provider Jonna OLIVIER, Daljit Vitals Signs Height: 163 cm What to do next Scheduled Follow-Up Appointments Tuesday 3:20 PM EDT ?? With: Lucila OLIVIER, Bridger Hinson Where: [facility] [address] [place] [address]- Status: Pending Medications The list below reflects the information in our records and provided by you today along with any changes made during this visit. Please continue your medications until treatment is completed or stopped by your provider. If this is different from the information you have or there are other questions,please contact the prescribing provider. What How Much When Instructions Unchanged Acetaminophen (Tylenol Extra Strength 500 mg oral tablet) 2 tab(s) Oral Every 6 hours as needed for as needed for pain Unchanged Amlodipine (amLODIPine 5 mg oral tablet) 1 tab(s) Oral Daily Unchanged Aspirin (aspirin 81 mg oral tablet, chewable) 1 tab(s) Oral Daily Unchanged Atorvastatin (Lipitor 80 mg oral tablet) 1 tab(s) Oral Daily at Bedtime Unchanged Durable Medical Equipment (Home Blood Pressure Monitor) See instructions check BP daily, diagnosis: Stroke with hypertension ?? Unchanged Ibuprofen (ibuprofen 800 mg oral tablet) 1 tab(s) Oral Every 8 hours Unchanged Lisinopril (lisinopril 20 mg oral tablet) 1 tab(s) Oral Daily Unchanged Methenamine (methenamine hippurate 1 gm oral tablet) 1 tab(s) Oral Daily Unchanged Metoprolol (Toprol XL 100 mg oral tablet, extended release) 1 tab(s) Oral Daily Unchanged Petrolatum lip moisturizer (Aquaphor Healing topical ointment) See instructions apply to donor site and chest wall ?? Unchanged Quetiapine (QUEtiapine 50 mg oral tablet) 1 tab(s) Oral Twice a day Unchanged Senna (Senna 8.6 mg oral tablet) 1 tab(s) Oral Daily at Bedtime Unchanged Tolterodine (tolterodine 4 mg oral capsule, extended release) 1 capsule Oral Daily Medications and Immunizations Administered Medications Given During Visit No medications given during this visit.?? Allergies (NKA means No Known Allergies) Demerol Latex PHENobarbital Vicodin penicillin sulfADIAZINE Common Emergency Awareness Tips IS IT A [...] are strongly encouraged to quit. Please call [facility] at [phone] or [phone] [phone] ([phone]) or log in to [email or web address] for referrals to smoking cessation programs. ?? The National Suicide Prevention Hotline is available 20/09 if you or someone you know needs to find a reason to keep living. By calling 9-522-308-CinemaWell.com (2140) you'll be connected to a skilled, trained counselor at a crisis center in your area. [facility] mInfo Portal You can view and manage your care through the patient portal or by using a health care keisha of your choosing. [facility] Live Chat is a website that allows you to securely view your medical information including your hospital discharge summary, office visit summaries, medications and follow-up visits. You can also request appointments, renew medications, and request access to your medical information using a health care keisha of your choosing, or just ask a question. You can enroll at [email or web address] or register during your next office visit. [facility], in keeping with [facility] guidance, no longer requires face masks [...] medical provider or home test kit. ?? Disclaimer: The information provided is of a general nature and is intended to be used in conjunction with the recommendations and advice of your health care practitioner. Every effort has been made to ensure that the information provided is accurate and complete at the time it is provided to you however, as your needs change, or, as new information becomes available, different or additional instructions may be required. ?? If you have questions, please consult with your primary care provider or pharmacist, as appropriate. This information is not intended to serve as substitution for assessment and evaluation by a qualified health care provider. If you do not have a primary care provider, you may find a [facility] provider by calling [facility] at [phone]. Patient Care team information Care Team Personnel Name: Rose Preston RN Position: [facility] RN Member Role: Primary Care Nurse Name: Katrin Albarran RN Position: [facility] RN Member Role: Primary Care Nurse Name: Mayank Su RN Position: [facility] RN Member Role: Primary Care Nurse Name: Loida Ponce RN Position: [facility] RN Member Role: Primary Care Nurse Name: Karine Carver RN Position: [facility] RN Member Role: Primary Care Nurse Name: Stanley Akbar Jr, RN Position: [facility] RN Member Role: Primary Care Nurse Name: Rudy Michaud RN Position: [facility] RN Member Role: Primary Care Nurse Name: Aminta Palacios LPN Position: [facility] RN Member Role: Primary Care Nurse Name: Amber Louis RN Position: [facility] RN Member Role: Primary Care Nurse Name: Lanette Poe Position: [facility] [place] Office Staff Member Role: Lifetime Consulting Physician Name: Terese Silvestre NP Position: Reference Physician Member Role: PCP Address: Address: [address] [place] [id number] Name: Wayne Rivers RN Position: [facility] RN Member Role: Primary Care Nurse Name: Sailaja Correa RN Position: S ED RN W/OE and Tasks Member Role: Primary Care Nurse Care Team Related Persons Name: RINA HUNT Name: RED ROSE Name: SERGIO ROSE Address: home [address] [place] [address] [address] [place] [address] Name: KENYA REYES Address: home [address] [place] [address] [address] [place] [address]
--- OUTSIDE RECORDS SUMMARY | 2024-01-24 10:02 | XMS_ITS | Continuity of Care Document ---
Author Organization [facility] Address [address] [place] [address]- Care Team Providers Care Dry Goods Inspector Name Role Phone Sera OLIVIER, Valorie Cassidy Primary Care Physician Encounter [facility] [place] [place] [id number] Date(s): 12/01/22 - 12/08/22 [facility] [address] [place], [place] [address] Attending Physician: Jun Ram MD Referring Physician: Malorie [...] 10/23/21 15:57:00 EDT, Route to Pharmacy Electronically, [facility] #[id number], Partial fill upon patientrequest if the prescription [...] 0 Refills, Maintenance, 10/23/21 15:57:00 EDT, Tablet, [facility] #[id number], Partial fill upon patient request if the prescription isfor a schedule II opioid drug., 163, cm, 10/20/21 7... Start Date: 10/23/21 Status: Ordered lisinopril 20 mg oral tablet 20 mg, 1, tablet, By Mouth, Daily, # 30 tablet, Refills 0, Tot. Refills 0, Maintenance, 10/23/21 15:58:00 EDT, Route to Pharmacy Electronically, [facility] #[id number], Partial fill upon patientrequest if the prescription [...] 10/23/21 15:58:00 EDT, Route to Pharmacy Electronically, [facility] #[id number], Partial fill upon patient request if the prescription is for a sched... Start Date: 10/23/21 Status: Ordered QUEtiapine 50 mg oral tablet 1 tablet = 50 mg, By Mouth, 2 times a day, # 60 tablet, 0 Refills, Maintenance, 10/23/21 15:59:00 EDT, Tablet, [facility] #[id number], Partial fill upon patient request if the prescription is for a schedule II opioid drug., 163, cm, 10/20/21 7:50... Start Date: 10/23/21 Status: Ordered tolterodine 4 mg oral capsule, extended release 1 capsule = 4 mg, By Mouth, Daily, 0 Refills, Maintenance, 12/03/22 13:51:00 EDT, Partial fill uponpatient request if the prescription is for a schedule II opioid drug. Start Date: 12/03/22 Status: Ordered Problem List Condition Confirmation Course Effective Dates Status H ealth Status Informant Bipolar I disorder Confirmed Active Encephalopathy acute Confirmed Active Encephalopathy Confirmed Active Expressive aphasia Confirmed Active Hypertensive urgency Confirmed Active Left acute arterial ischemic stroke, MCA (middle cerebral artery) Confirmed Active Vital Signs Most recent to oldest [Reference Range]: 1 Height 163 cm (12/01/22 11:35 AM) Weight 88.6 kg (12/01/22 11:35 AM) Oxygen Saturation [94-100 %] 96 % (12/01/22 11:35 AM) Pulse Rate [55-90 bpm] 93 bpm *H* (12/01/22 11:35 AM) Body Mass Index [18.5-24.99 kg/m2] 33.35 kg/m2 *>HHI* (12/01/22 11:35 AM) Blood Pressure [90-138/55-84 mm Hg] 114/ 69mm Hg (12/01/22 11:35 AM) Respiratory Rate [16-30 br/min] 16 br/mi n (12/01/22 11:35 AM) Mode of Delivery (Oxygen) Room air (12/01/22 11:35 AM) Blood pressure sites Arm, left (12/01/22 11:35 AM) Weight Obtained Via Standing scale (12/01/22 11:35 AM) Social History Social History Type Response Smoking Status Cigars or pipes silverio y within last 30 days entered on: 10/12/21 Sex EKG study * Event Display: ECG 12-Lead Authored Date: Please click on pdf link to open report * Event Display: ECG 12-Lead Authored Date: Ventricular Rate: 81 BPM Atrial Rate: 81 BPM P-R Interval: 174 ms QRS Duration: 66 ms Q-T Interval: 366 ms QTC Calculation(Bazett): 425 ms P [place]: 50 degrees R [place]: -16 degrees T [place]: 8 degrees Normal sinus rhythm Normal ECG When compared with ECG of 12-OCT-2021 19:48, No significant change was found Confirmed by KRANTHI BLUE MD ([id number]) on 12/01/2022 3:49:19 PM [place]: KRANTHI BLUE MD Patient Care team information Care Team Personnel Name: Sera OLIVIER , Valorie Cassidy Position: Reference Physician Member Role: PCP Address: Address: [address] [place], [place] [address] Name: Lanette Poe Position: [facility] Office Staff Member Role: Lifetime Consulting Physician Care Team Related Persons Name: RINA HUNT Name: RED ROSE Name: SERGIO ROSE Address: home [address] [place] [address] [address] Name: KENYA REYES Address: home [address] [place] [id number]
--- OUTSIDE RECORDS SUMMARY | 2024-01-24 10:02 | XMS_ITS | Continuity of Care Document ---
Author Organization [facility] Address [address], [address], [address] [place] [address]- Care Team Providers Care Pump Stitcher Name Role Phone Sera OLIVIER, Valorie Cassidy Primary Care Physician Encounter [facility] [place] [place] ACCT R [id number] Date(s): 02/23/22 - 03/25/22 [facility] [address], [address], [address] [place], [place] [address] Attending Physician: Simran Samuel Admitting Physician: AdmtrSimran Referring Physician: Admtr, Ar8 Allergies, Adverse Reactions, [...] 10/23/21 15:57:00 EDT, Route to Pharmacy Electronically, [facility] #[id number], Partial fill upon patientrequest if the prescription is for a schedule II op... Start Date: 10/23/21 Status: Ordered chlorthalidone 25 mg oral tablet 25 mg, 1, tablet, By Mouth, Daily, # 30 tablet, Refills 0, Tot. Refills 0, Maintenance, 10/23/21 15:57:00 EDT, Route to Pharmacy Electronically, [facility] #[id number], Partial fill upon patientrequest if the prescription is for a schedule II op... Start Date: 10/23/21 Status: Ordered cloNIDine 0.1 mg/24 hr transdermal film, extended release 1 patch, Topically, Every week, # 5 patch, 0 Refills, Maintenance, 10/23/21 15:58:00 EDT, Patch, [facility] #[id number], Partial fill upon patient request if the [...] 0 Refills, Maintenance, 10/23/21 15:57:00 EDT, Tablet, [facility] #[id number], Partial fill upon patient request if the prescription isfor a schedule II opioid drug., 163, cm, 10/20/21 7... Start Date: 10/23/21 Status: Ordered lisinopril 20 mg oral tablet 20 mg, 1, tablet, By Mouth, Daily, # 30 tablet, Refills 0, Tot. Refills 0, Maintenance, 10/23/21 15:58:00 EDT, Route to Pharmacy Electronically, [facility] #[id number], Partial fill upon patientrequest if the prescription is for a schedule II op... Start Date: 10/23/21 Status: Ordered metoprolol 25 mg oral tablet 75 mg, 3, tablet, By Mouth, 2 times a day, # 180 tablet, Refills 0, Tot. Refills 0, Maintenance, 10/23/21 15:58:00 EDT, Route to Pharmacy Electronically, [facility] #[id number], Partial fill upon patient request if the prescription is for a sched... Start Date: 10/23/21 Status: Ordered OXcarbazepine 150 mg oral tablet 150 mg, 1, tablet, By Mouth, 2 times a day, # 60 tablet, Refills 0, Tot. Refills 0, Maintenance, 10/23/21 15:59:00 EDT, Route to Pharmacy Electronically, [facility] #[id number], Partial fill upon patient request if the prescription is for a sched... Start Date: 10/23/21 Status: Ordered oxybutynin 5 mg/24 hours oral tablet, extended release 1 tablet = 5 mg, By Mouth, Daily, # 30 tablet, 0 Refills, Maintenance, 10/23/21 15:58:00 EDT, XL Tablet, [facility] #[id number], Partial fill upon patient request if the prescription is for a schedule II opioid drug., 163, cm, 10/20/21 7:50:00 ED... Start Date: 10/23/21 Status: Ordered QUEtiapine 50 mg oral tablet 1 tablet = 50 mg, By Mouth, 2 times a day, # 60 tablet, 0 Refills, Maintenance, 10/23/21 15:59:00 EDT, Tablet, [facility] #[id number], Partial fill upon patient request if the [...] Care Team Personnel Name: Lanette Montemayor Position: [facility] Office Staff Member Role: Lifetime Consulting Physician Name: Sera OLIVIER , Valorie Cassidy Position: Reference Physician Member Role: PCP Address: Address: [address] [place] [address]- Care Team Related Persons Name: MARILEEANISHA MANCIADIA Name: RED ROSE Name: SERGIO ROSE Address: home [address] [place] [id number] Name: KENYA REYES Address: home [address] [place] [address]
--- OUTSIDE RECORDS SUMMARY | 2024-01-24 10:03 | XMS_ITS | Continuity of Care Document ---
Author Organization [facility] Address [address], [address] [place] [address]- Care Team Providers Care Washer Carcass Name Role Phone Nirmala MUNOZ, Terese Primary Care Physician En[facility] [place] Date(s): 11/24/23 [facility] [address], [address]th [place] [address]- Attending Physician: Simran Samuel Admitting Physician: AdmSimran rodrigez Referring Physician: AdmtrSimran Allergies, Adverse Reactions, Alerts [...] 10/23/21 15:57:00 EDT, Route to Pharmacy Electronically, [facility] #[id number], Partial fill upon patientrequest if the prescription [...] 0 Refills, Maintenance, 10/23/21 15:57:00 EDT, Tablet, [facility] #[id number], Partial fill upon patient request if the prescription isfor a schedule II opioid drug., 163, cm, 10/20/21 7... Start Date: 10/23/21 Status: Ordered lisinopril 20 mg oral tablet 20 mg, 1, tablet, By Mouth, Daily, # 30 tablet, Refills 0, Tot. Refills 0, Maintenance, 10/23/21 15:58:00 EDT, Route to Pharmacy Electronically, [facility] #[id number], Partial fill upon patientrequest if the prescription [...] 0 Refills, Maintenance, 10/23/21 15:59:00 EDT, Tablet, [facility] #[id number], Partial fill upon patient request if the [...] opioid drug.,... Start Date: 12/15/22 Status: Ordered Vitamin C By Mouth, Daily, 0 Refills, Maintenance, 11/24/23 14:17:00 EDT, Partial fill upon patient request if the prescription is for a schedule II opioid drug. Start Date: 11/24/23 Status: Ordered Zolpidem Daily at bedtime, 0 Refills, Maintenance, 11/24/23 14:18:00 EDT, Partial fill upon patient request if the prescription is for a schedule II opioid drug. Start Date: 11/24/23 Status: Ordered Problem List Condition Confirmation Course Effective Dates Status H ealth Status Informant Bipolar I disorder Confirmed Active Encephalopathy acute Confirmed Active Encephalopathy Confirmed Active Dyslipidemia Confirmed Active Expressive aphasia Confirmed Active Hypertensive urgency Confirmed Active Left acute arterial ischemic stroke, MCA (middle cerebral artery) Confirmed Active Osteoporosis Confirmed Active Social History Social History Type Response Smoking Status Cigars or pipes silverio y within last 30 days entered on: 10/12/21 Sex Patient Care team information Care Team Personnel Name: Lanette Montemayor Position: [facility] Office Staff Member Role: Lifetime Consulting Physician Name: Rose Preston RN Position: [facility] RN Member Role: Primary Care Nurse Name: Katrin Albarran RN Position: [facility] RN Member Role: Primary Care Nurse Name: Mayank Su RN Position: [facility] RN Member Role: Primary Care Nurse Name: Loida Ponce RN Position: [facility] RN Member Role: Primary Care Nurse Name: Karine Carver RN Position: [facility] RN Member Role: Primary Care Nurse Name: Stanley Akbar Jr, RN Position: [facility] RN Member Role: Primary Care Nurse Name: Rudy Michaud RN Position: [facility] RN Member Role: Primary Care Nurse Name: Philip LO, Aminta Position: [facility] RN Member Role: Primary Care Nurse Name: Amber Louis RN Position: [facility] RN Member Role: Primary Care Nurse Name: Terese Silvestre NP Position: Reference Physician Member Role: PCP Address: Address: [address] [place] [address] Name: Wayne Rivers RN Position: [facility] RN Member Role: Primary Care Nurse Name: Sailaja Correa RN Position: [facility] ED RN W/OE and Tasks Member Role: Primary Care Nurse Care Team Related Persons Name: RINA HUNT Name: RED ROSE Name: SERGIO ROSE Address: [address] [place] [address] Name: KENYA REYES Address: home [address] [place] [address]
--- OUTSIDE RECORDS SUMMARY | 2024-01-24 10:03 | XMS_ITS | Continuity of Care Document ---
Author Organization [facility] Address [address] [place] [address] [address] [place] [address]- Care Team Providers Care Regional Business Manager Name Role Phone Sera OLIVIER, Valorie Casisdy Primary Care Physician Encounter [facility] Date(s): 04/01/23 - 05/01/[address] [place] [address]- Allergies, Adverse Reactions, Alerts Substance Reaction Severity [...] 10/23/21 15:57:00 EDT, Route to Pharmacy Electronically, [facility] #[id number], Partial fill upon patientrequest if the prescription [...] 0 Refills, Maintenance, 10/23/21 15:57:00 EDT, Tablet, [facility][id number], Partial fill upon patient request if the prescription isfor a schedule II opioid drug., 163, cm, 10/20/21 7... Start Date: 10/23/21 Status: Ordered lisinopril 20 mg oral tablet 20 mg, 1, tablet, By Mouth, Daily, # 30 tablet, Refills 0, Tot. Refills 0, Maintenance, 10/23/21 15:58:00 EDT, Route to Pharmacy Electronically, [facility] #[id number], Partial fill upon patientrequest if the prescription [...] 0 Refills, Maintenance, 10/23/21 15:59:00 EDT, Tablet, [facility] #[id number], Partial fill upon patient request if the [...] Care Nurse Name: Loida Ponce RN Position: [facility] RN Member Role: Primary Care Nurse Name: Sera OLIVIER , Valorie Cassidy Position: Reference Physician Member Role: PCP Address: Address: [address] [place], [place] - [place] Name: Karine Carver RN Position: [facility] RN Member Role: Primary Care Nurse Name: Stanley Akbar Jr, RN Position: S RN Member Role: Primary Care Nurse Name: Rudy Michaud RN Position: [facility] RN Member Role: Primary Care Nurse Name: Philip LO, Aminta Position: [facility] RN Member Role: Primary Care Nurse Name: Pa Timmons RN Position: [facility] RN Member Role: Primary Care Nurse Address: Address: [facility] [place] [address]- Name: Amber Louis RN Position: [facility] RN Member Role: Primary Care Nurse Name: Lanette Poe Position: [facility] [place] Office Staff Member Role: Lifetime Consulting Physician Name: Wayne Rivers RN Position: [facility] RN Member Role: Primary Care Nurse Name: Sailaja Correa RN Position: [facility] ED RN W/OE and Tasks Member Role: Primary Care Nurse Care Team Related Persons Name: RINA HUNT Name: RED ROSE Name: SERGIO ROSE Address: home [address] [place] [address] Name: KENYA REYES Address: home [address] [place] [address]
--- OUTSIDE RECORDS SUMMARY | 2024-01-24 10:03 | XMS_ITS | Continuity of Care Document ---
Author Organization [facility] As critical access hospital Address [address] [place] [address] [address] [place] [address]- Care Team Providers Care Pillar Worker Name Role Phone Sera OLIVIER, Valorie Cassidy Primary Care Physician [place] [facility] [place]s): 04/21/23 - 04/28/[address] [place] [address]- Attending Physician: Barbara Alanis MD Allergies, Adverse Reactions, Alerts Substance Reaction [...] 10/23/21 15:57:00 EDT, Route to Pharmacy Electronically, [facility] #[id number], Partial fill upon patientrequest if the prescription [...] 0 Refills, Maintenance, 10/23/21 15:57:00 EDT, Tablet, [facility][id number], Partial fill upon patient request if the prescription isfor a schedule II opioid drug., 163, cm, 10/20/21 7... Start Date: 10/23/21 Status: Ordered lisinopril 20 mg oral tablet 20 mg, 1, tablet, By Mouth, Daily, # 30 tablet, Refills 0, Tot. Refills 0, Maintenance, 10/23/21 15:58:00 EDT, Route to Pharmacy Electronically, [facility] #[id number], Partial fill upon patientrequest if the prescription [...] 0 Refills, Maintenance, 10/23/21 15:59:00 EDT, Tablet, [facility] #[id number], Partial fill upon patient request if the [...] oldest [Reference Range]: 1 Height 163 cm (04/21/23 9:02 AM) Pulse Rate [55-90 bpm] 86 bpm (04/21/23 9:02 AM) Blood Pressure [90-138/55-84 mm Hg] 176/ 56mm Hg *H* (04/21/23 9:02 AM) Temperature [96.8-100.4 DegF] 96.6 DegF *L* (04/21/23 9:02 AM) Blood pressure sites Arm, right (04/21/23 9:02 AM) Temperature Route Temporal (04/21/23 9:02 AM) Social History Social History Type Response [...] Physician Member Role: PCP Address: Address: [address] [place] [address]- Name: Karine Carver RN Position: [facility] RN Member Role: Primary Care Nurse Name: Stanley Akbar Jr, RN Position: [facility] RN Member Role: Primary Care Nurse Name: Rudy Michaud RN Position: [facility] RN Member Role: Primary Care Nurse Name: Philip LO, Aminta Position: [facility] RN Member Role: Primary Care Nurse Name: Pa Timmons RN Position: [facility] RN Member Role: Primary Care Nurse Address: Address: [address] [place] [id number] Name: Amber Louis RN Position: [facility] RN Member Role: Primary Care Nurse Name: Lanette Poe Position: [facility] [place] Office Staff Member Role: Lifetime Consulting Physician Name: Wayne Rivers RN Position: [facility] RN Member Role: Primary Care Nurse Name: Sailaja Correa RN Position: [facility] ED RN W/OE and Tasks Member Role: Primary Care Nurse Care Team Related Persons Name: RINA HUNT Name: RED ROSE Name: SERGIO ROSE Address: home [address] [place] [address] Name: KENYA REYES Address: home [address] [place] [address]
--- OUTSIDE RECORDS SUMMARY | 2024-01-24 10:03 | XMS_ITS | Continuity of Care Document ---
Author Organization [facility] Address [address] [place] [address] [address] [place] [address]- Care Team Providers Care Rf Microwave Engineer Name Role Phone Niramla MUNOZ, Terese Primary Care Physician [phone] Encounter [facility] ACCT R [id number] Date(s): 05/17/23 - 05/24/[address] [place] [address]- Attending Physician: Barbara Alanis MD Allergies, Adverse [...] 10/23/21 15:57:00 EDT, Route to Pharmacy Electronically, [facility][id number], Partial fill upon patientrequest if the prescription [...] 0 Refills, Maintenance, 10/23/21 15:57:00 EDT, Tablet, [facility] #[id number], Partial fill upon patient request if the prescription isfor a schedule II opioid drug., 163, cm, 10/20/21 7... Start Date: 10/23/21 Status: Ordered lisinopril 20 mg oral tablet 20 mg, 1, tablet, By Mouth, Daily, # 30 tablet, Refills 0, Tot. Refills 0, Maintenance, 10/23/21 15:58:00 EDT, Route to Pharmacy Electronically, [facility] #[id number], Partial fill upon patientrequest if the prescription [...] 0 Refills, Maintenance, 10/23/21 15:59:00 EDT, Tablet, [facility] #[id number], Partial fill upon patient request if the [...] oldest [Reference Range]: 1 Height 163 cm (05/17/23 10:12 AM) Pulse Rate [55-90 bpm] 100 bpm *H* (05/17/23 10:12 AM) Blood Pressure [90-138/55-84 mm Hg] 171/ 90mm Hg *H* (05/17/23 10:12 AM) Temperature [96.8-100.4 DegF] 97.7 DegF (05/17/23 10:12 AM) Blood pressure sites Arm, left (05/17/23 10:12 AM) Temperature Route Temporal (05/17/23 10:12 AM) Social History Social History Type Response Smoking Status Cigars or pipes silverio y within last 30 days entered on: 10/12/21 Sex Patient Care team information Care Team Personnel Name: Rose Preston RN Position: [facility] RN Member Role: Primary Care Nurse Name: Katrin Albarran RN Position: S RN Member Role: Primary Care Nurse Name: Mayank Su Position: [facility] RN Member Role: Primary Care Nurse Name: Loida Ponce RN Position: [facility] RN Member Role: Primary Care Nurse Name: Karine Carver RN Position: [facility] RN Member Role: Primary Care Nurse Name: Stanley Akbar Jr, RN Position: [facility] RN Member Role: Primary Care Nurse Name: Rudy Michaud RN Position: [facility] RN Member Role: Primary Care Nurse Name: Philip LO, Aminta Position: [facility] RN Member Role: Primary Care Nurse Name: Pa Timmons RN Position: [facility] RN Member Role: Primary Care Nurse Address: Address: [address] [place] [id number]- Name: Amber Louis RN Position: [facility] RN Member Role: Primary Care Nurse Name: Lanette Poe Position: [facility] [place] Office Staff Member Role: Lifetime Consulting Physician Name: Terese Silvestre NP Position: Reference Physician Member Role: PCP Address: Address: [address] [place] [address]- Name: Wayne Rivers RN Position: [facility] RN Member Role: Primary Care Nurse Name: Sailaja Correa RN Position: [facility] ED RN W/OE and Tasks Member Role: Primary Care Nurse Care Team Related Persons Name: RINA HUNT Name: RED ROSE Name: SERGIO ROSE Address: home [address] [place] [address] Name: KENYA REYES Address: home [address] [place] [address]
--- OUTSIDE RECORDS SUMMARY | 2024-01-24 10:03 | XMS_ITS | Continuity of Care Document ---
Author Organization [facility] As [facility] Address [address] [place] [address] [address] [place] [address]- Care Team Providers Care Director Of Recruiting Name Role Phone Nirmala MUNOZ, Terese Primary Care Physician [place] [facility] [place] [id number] Date(s): 05/05/23 - 05/12/[address] [place] [address]- Attending Physician: Collin OLIVIER, Renata Treviño Referring Physician: Sera OLIVIER , Valorie Cassidy [...] 10/23/21 15:57:00 EDT, Route to Pharmacy Electronically, [facility] #[id number], Partial fill upon patientrequest if the prescription [...] 0 Refills, Maintenance, 10/23/21 15:57:00 EDT, Tablet, [facility] #[id number], Partial fill upon patient request if the prescription isfor a schedule II opioid drug., 163, cm, 10/20/21 7... Start Date: 10/23/21 Status: Ordered lisinopril 20 mg oral tablet 20 mg, 1, tablet, By Mouth, Daily, # 30 tablet, Refills 0, Tot. Refills 0, Maintenance, 10/23/21 15:58:00 EDT, Route to Pharmacy Electronically, [facility] #[id number], Partial fill upon patientrequest if the prescription [...] 0 Refills, Maintenance, 10/23/21 15:59:00 EDT, Tablet, [facility] #[id number], Partial fill upon patient request if the [...] RN Member Role: Primary Care Nurse Name: Maaynk Su Position: S RN Member Role: Primary Care Nurse Name: Loida Ponce RN Position: [facility] RN Member Role: Primary Care Nurse Name: Karine Carver RN Position: [facility] RN Member Role: Primary Care Nurse Name: Stanley Akbar Jr, RN Position: [facility] RN Member Role: Primary Care Nurse Name: Rudy Michaud RN Position: [facility] RN Member Role: Primary Care Nurse Name: Philip LO, Aminta Position: [facility] RN Member Role: Primary Care Nurse Name: Pa Timmons RN Position: [facility] RN Member Role: Primary Care Nurse Address: Address: [address] [place] [address]- Name: Amber Louis RN Position: [facility] RN Member Role: Primary Care Nurse Name: Lanette Poe Position: [facility] [place] Office Staff Member Role: Lifetime Consulting Physician Name: Terese Silvestre NP Position: Reference Physician Member Role: PCP Address: Address: [address] [place] [address]- Name: Wayne Rivers RN Position: [facility] RN Member Role: Primary Care Nurse Name: Sailaja Correa RN Position: [facility] ED RN W/OE and Tasks Member Role: Primary Care Nurse Care Team Related Persons Name: RINA HUNT Name: RED ROSE Name: SERGIO ROSE Address: home [address] [place], [place] Name: KENYA REYES Address: home [address] [place] [address]
== END 2024-01-24 10:36 | disposition home or self-care (01) ==
LOC: HO.HUSH 10:00
PROVIDERS: PCP Nurse Practitioner Family; Visit Provider Nurse Practitioner Family
DX: N39.0 Urinary tract infection, site not specified (principal); B96.29 Other Escherichia coli [E. coli] as the cause of diseases classified elsewhere; Z16.12 Extended spectrum beta lactamase (ESBL) resistance; N32.81 Overactive bladder; R33.9 Retention of urine, unspecified; R82.90 Unspecified abnormal findings in urine; Z13.9 Encounter for screening, unspecified
CPT/HCPCS: 99214; G2211

== ENCOUNTER 2024-02-06 10:51 | Outpatient (REF) | payer OTHER, SELFPAY ==
[2024-02-06 12:45] LABS: Albumin Level 4.4 g/dL (3.5-5.0); Anion Gap 13 (12-20); Blood Urea Nitrogen 13 mg/dL (9-16); Calcium 9.6 mg/dL (8.4-10.2); Carbon Dioxide 26 mmol/L (22-29); Chloride 109 mmol/L (96-108); Estimated Glomerular Filt Rate 51; Glucose Random 112 mg/dL (60-115); Potassium 4.1 mmol/L (3.3-5.1); Sodium 144 mmol/L (135-145)
== END 2024-02-06 10:52 | disposition home or self-care (01) ==
LOC: HO.LAB 10:51
PROVIDERS: PCP Nurse Practitioner Family; Visit Provider Internal Medicine Endocrinology, Diabetes & Metabolism
DX: M81.0 Age-related osteoporosis without current pathological fracture (principal)
CPT/HCPCS: 36415; 80048; 82040

== ENCOUNTER 2024-02-09 11:00 | Outpatient (AMB) | payer OTHER, SELFPAY ==
[2024-02-09 11:09] VITALS: BP 130/68; PULSE 68; BMI 34.5
--- NOTE | 2024-02-09 11:09 | MHC.OFFVIS ---
Vital Signs 02/09/24 11:09 Height 5 ft 4 in Weight 201 lb 0.985 oz BMI 34.5 BP 130/68 Blood Pressure Location Rt brachial Position Sitting Pulse 68 Pulse Source Pulse Oximeter Intake Visit Reasons: Osteoporosis Intake Note: Patient present today for Osteoporosis follow up visit. Tool Tender Required: No Accompanied by: Self / Same As Patient Allergies acetaminophen [Vicodin] Allergy (Unknown, Verified 02/09/24 11:15) tongue swells, hives on bottom of feet adhesive tape [Adhesive Tape] Allergy (Unknown, Verified 02/09/24 11:15) Rash hydrocodone [Vicodin] Allergy (Unknown, Verified 02/09/24 11:15) tongue swells, hives on bottom of feet latex [Latex] Allergy (Unknown, Verified 02/09/24 11:15) Rash, red blisters penicillin V Allergy (Unknown, Verified 02/09/24 11:15) hives, rash Penicillins Allergy (Unknown, Verified 02/09/24 11:15) Rash, Nausea and Vomiting Sulfa (Sulfonamide Antibiotics) Allergy (Unknown, Verified 02/09/24 11:15) Hives, rash amphetamine [Adderall] Adverse Reaction (Unknown, Verified 02/09/24 11:15) diarrhea dextroamphetamine [Adderall] Adverse Reaction (Unknown, Verified 02/09/24 11:15) diarrhea morphine [MORPHINE] Adverse Reaction (Unknown, Verified 02/09/24 11:15) Nausea and Vomiting phenobarbital [Phenobarbital] Adverse Reaction (Unknown, Verified 02/09/24 11:15) extreme hyperactivity meperidine [From Demerol] Adverse Reaction (Verified 02/09/24 11:15) Vomiting Medication List - Last Reconciled 02/09/24 by Ziggy Ledezma MD amlodipine 5 mg PO DAILY ascorbic acid (vitamin C) 1,000 mg PO DAILY 90 days aspirin 81 mg PO DAILY 90 days atorvastatin 80 mg PO BEDTIME 30 days cholecalciferol (vitamin D3) 25 mcg PO DAILY 3 months estradiol 0.01%(0.1mg/gram) vaginally 3 times a week; pea sized amount to urethra 3 times a week 30 days lisinopril 20 mg PO DAILY 90 days methenamine hippurate 1 g PO daily 90 days metoprolol succinate ER 100 mg PO DAILY 90 days miscellaneous medical supply as directed; contours incontinent pad maximum 28 per pack 1 month miscellaneous medical supply 2 pair of support stockings nitrofurantoin macrocrystal 100 mg PO BID 14 days quetiapine ER 100 mg (2 x 50 mg) PO BEDTIME 30 days sennosides (senna) 8.6 mg PO BEDTIME 90 days tolterodine ER 4 mg PO DAILY 90 days zolpidem 5 mg PO BEDTIME 30 days HPI Comments Details: 68 YO Female with PMHx CKD stage 2 is seen in consultation at the request of PCP for Osteoporosis. First diagnosed in recently . Received treatment in the past with [facility] ,for 1 yr still on . Tolerated treatment well without complication. No history of pathologic fracture or ONJ. Has severla servings of dietary calcium per day in the form of daily. Not Takes Calcium supplement Takes ? IU of Vitamin D daily in MVI . Denies ever using PPI, anticoagulant, antiepileptic or glucocorticoid medication. Does weight bearing exercise 7 days per week in the form of walking . 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 Has false teeth No planned upcoming dental work or extractions. DXA dated 07/07/21 :FINDINGS: AP SPINE L1-L4: Current: BMD 1.011 g/cm2, Z-score -0.7, T-score -1.4, osteopenia, 4.1% increase from previous, 1.9% increase from baseline (<5% change is not significant). Prior: BMD 0.971 g/cm2. Baseline: BMD 0.992 g/cm2. LEFT FEMUR, NECK: Current: BMD 0.691 g/cm2, Z-score -1.6, T-score -2.5, osteoporosis. Prior: BMD 0.631 g/cm2. Baseline: BMD 0.643 g/cm2. LEFT FEMUR, TOTAL: Current: BMD 0.679 g/cm2, Z-score -2.1, T-score -2.6, osteoporosis, 13.7% increase from previous, 2.0% increase from baseline (<5% change is not significant). Prior: BMD 0.597 g/cm2. Baseline: BMD 0.666 g/cm2. IDENTIFIED RISK FACTORS: Early menopause, secondary osteoporosis, osteoporosis, renal, tobacco use (current smoker), hysterectomy. HISTORY OF FRACTURE: None listed. MEDICATIONS: Calcium or multivitamin. MM/XR DEXA axial skeleton IMPRESSION: 1. DIAGNOSIS: Osteoporosis based on the lowest T-score value of -2.6 in the total femur applying World Health Organization criteria.? ? Labs: No fx since last visit . Repat dexa showed substantial decreases in bone density FINDINGS: LEFT FEMUR, NECK: Current: BMD 0.647 g/cm2, Z-score -1.7, T-score -2.8, osteoporosis. Prior: BMD 0.691 g/cm2. Baseline: BMD 0.643 g/cm2. LEFT FEMUR, TOTAL: Current: BMD 0.599 g/cm2, Z-score -2.4, T-score -3.2, osteoporosis, 11.8% decrease from previous, 10.1% decrease from baseline (<5% change is not significant). Prior: BMD 0.679 g/cm2. Baseline: BMD 0.666 g/cm2. AP SPINE L1-L4: Current: BMD 0.858 g/cm2, Z-score -1.7, T-score -2.7, osteoporosis, 15.1% decrease from previous, 13.5% decrease from baseline (<5% change is not significant). Prior: BMD 1.011 g/cm2. Baseline: BMD 0.992 g/cm2. Received Prolia in 09/2023 . Tolerated well. No fx since last visit . [facility] Medical History FH: cholecystectomy Hypersomnia Snoring Expressive aphasia Dysgraphia Stroke Multiple allergies Cholelithiasis Overactive bladder Recurrent urinary tract infection History of CVA with residual deficit Expressive aphasia History of CVA (cerebrovascular accident) Refused influenza vaccine COVID-19 vaccination declined Impaired fasting glucose Dyslipidemia Osteoporosis Psoriasis Gestational diabetes Hx of uterine prolapse Osteoarthritis of knees, bilateral Bipolar 1 disorder CKD (chronic kidney disease) stage 2, GFR 60-89 ml/min Essential hypertension Rectocele Urge incontinence Elevated blood pressure reading in office with diagnosis of hypertension Hypotonic bladder Urinary tract infection Dyspareunia in female Surgical History History of partial mastectomy of left breast History of bilateral oophorectomy H/O mastectomy Hx of cholecystectomy History of total left knee replacement (TKR) History of total right knee replacement (TKR) History of Maloney urethropexy Hx of total vaginal hysterectomy H/O rectocele repair Family History Father Diabetes mellitus CHF (congestive heart failure) Mother FH: stomach cancer Crohn disease Son Mental health disorder Social History Household Members: Children Housing: Apartment Do you presently have visiting nurse or other home services: Yes Alcohol intake: never Patient Tobacco Use Status: Current someday Tobacco user Cigarette Packs Per Day: 0.1 Cigarettes Per Day: 6 Years Smoked: 40 e-Cigarette/Vaping Use: Never Used Second Hand Smoke Exposure: No service: No Current occupational status: disabled Sexual orientation: Straight/Heterosexual Gender identity: Female Cognitive needs: No Hearing needs: No Vision needs: No Physical Exam Vital Signs: Last Vital Signs Pulse 68 02/09/24 11:09 BP 130/68 02/09/24 11:09 BMI result Body Mass Index 34.5 Assessment & Plan Assessment & Plan (1) Osteoporosis: Code(s): M81.0 - Age-related osteoporosis without current pathological fracture Category: Medical Plan: This 68-year-old white female with a history of osteoporosis with negative l secondary workup in the setting of CKD stage 3 b. recent DEXA showed decreases in bone density but normalization of PTH and vitamin-D as well as corrected calcium. Currently on Prolia 60 mg q.6 months last dose given 10/26/2023 Plan is to continue with the Prolia for 3-5 year course. Next injection will be in 04/2024 Should continue with the calcium and vitamin-D supplementation Orders: Referrals Nutrition/Dietitian Referral R63.5 - Abnormal weight gain Coding Level of Care Code Est Pt Level 3 (48522) Diagnoses Osteoporosis M81.0
== END 2024-02-09 11:31 | disposition home or self-care (01) ==
PROVIDERS: PCP Nurse Practitioner Family; Visit Provider Internal Medicine Endocrinology, Diabetes & Metabolism
DX: M81.0 Age-related osteoporosis without current pathological fracture (principal)
CPT/HCPCS: 99213

== ENCOUNTER → 2024-02-09 11:00 | Outpatient (BNVA) | payer OTHER, SELFPAY | PROVIDERS: PCP Nurse Practitioner Family; Visit Provider Internal Medicine Endocrinology, Diabetes & Metabolism | DX: M81.0 Age-related osteoporosis without current pathological fracture (principal) | CPT/HCPCS: 99212 ==

== ENCOUNTER 2024-03-15 10:45 | Outpatient (AMB) | payer OTHER, SELFPAY ==
--- NOTE | 2024-03-15 11:10 | A.OFFVIS_ITS ---
VS Expanded 03/15/24 11:12 03/20/24 13:18 Height 5 ft 4 in 5 ft 4 in Weight 205 lb 4.006 oz 205 lb BMI 35.2 35.2 Intake Visit Reasons: Abnormal weight gain Allergies acetaminophen [Vicodin] Allergy (Unknown, Verified 03/16/24 13:58) tongue swells, hives on bottom of feet adhesive tape [Adhesive Tape] Allergy (Unknown, Verified 03/16/24 13:58) Rash hydrocodone [Vicodin] Allergy (Unknown, Verified 03/16/24 13:58) tongue swells, hives on bottom of feet latex [Latex] Allergy (Unknown, Verified 03/16/24 13:58) Rash, red blisters penicillin V Allergy (Unknown, Verified 03/16/24 13:58) hives, rash Penicillins Allergy (Unknown, Verified 03/16/24 13:58) Rash, Nausea and Vomiting Sulfa (Sulfonamide Antibiotics) Allergy (Unknown, Verified 03/16/24 13:58) Hives, rash amphetamine [Adderall] Adverse Reaction (Unknown, Verified 03/16/24 13:58) diarrhea dextroamphetamine [Adderall] Adverse Reaction (Unknown, Verified 03/16/24 13:58) diarrhea morphine [MORPHINE] Adverse Reaction (Unknown, Verified 03/16/24 13:58) Nausea and Vomiting phenobarbital [Phenobarbital] Adverse Reaction (Unknown, Verified 03/16/24 13:58) extreme hyperactivity meperidine [From Demerol] Adverse Reaction (Verified 03/16/24 13:58) Vomiting Nutrition Presentation Details: Pt presents for MNT for abnormal weight gain Pt reports gaining about 10 lbs in about 6 m Reports hx of stroke about 2 years ago and is relearning to cook with son's assistance Pt participates from mom's meals , one meal/day Choosing flavored beverages due to thirst, choosing Gatorade majority of the time 8:30 am 2 oatmeal packets, water ( raisin and dates) and 2 c of coffee caramel 12-2 pm [place] : chicken salad or ham/cheese or tuna ) on whole wheat bread 7-8 pm Mom's meal starch/prot/veg walking 3 miles /wk BS Monitoring Most Recent Diabetes Results: Cholesterol 130 mg/dL (<200) 11/23/23 HDL Cholesterol 43 mg/dL (>40) 11/23/23 Triglycerides 122 mg/dL (<150) 11/23/23 Creatinine 1.07 mg/dL (0.5-1.4) 02/06/24 Blood Urea Nitrogen 13 mg/dL (9-16) 02/06/24 Sodium 144 mmol/L (135-145) 02/06/24 Potassium 4.1 mmol/L (3.3-5.1) 02/06/24 Chloride 109 mmol/L (96-108) H 02/06/24 Carbon Dioxide 26 mmol/L (22-29) 02/06/24 Calcium 9.6 mg/dL (8.4-10.2) 02/06/24 Albumin 4.4 g/dL (3.5-5.0) 02/06/24 APU-[id number].Jeor Equation Height: 5 ft 4 in Weight: 205 lb Resting Metabolic Rate: 1454.29 Calculated Activity Level: Sedentary Calories Needed to Maintain Weight: 1745.15 Diagnosis Nutrition problem #1: excessive energy intake As related to (etiology) #1: diagnosis As evidenced by (sign/symptom) #1: knowledge deficit of diet [facility] Medical History FH: cholecystectomy Hypersomnia Snoring Expressive aphasia Dysgraphia Stroke Multiple allergies Cholelithiasis Overactive bladder Recurrent urinary tract infection History of CVA with residual deficit Expressive aphasia History of CVA (cerebrovascular accident) Refused influenza vaccine COVID-19 vaccination declined Impaired fasting glucose Dyslipidemia Osteoporosis Psoriasis Gestational diabetes Hx of uterine prolapse Osteoarthritis of knees, bilateral Bipolar 1 disorder CKD (chronic kidney disease) stage 2, GFR 60-89 ml/min Essential hypertension Rectocele Urge incontinence Elevated blood pressure reading in office with diagnosis of hypertension Hypotonic bladder Urinary tract infection Dyspareunia in female Surgical History History of partial mastectomy of left breast History of bilateral oophorectomy H/O mastectomy Hx of cholecystectomy History of total left knee replacement (TKR) History of total right knee replacement (TKR) History of Maloney urethropexy Hx of total vaginal hysterectomy H/O rectocele repair Family History Father Diabetes mellitus CHF (congestive heart failure) Mother FH: stomach cancer Crohn disease Son Mental health disorder Social History Household Members: Children Housing: Apartment Do you presently have visiting nurse or other home services: Yes Alcohol intake: never Patient Tobacco Use Status: Current someday Tobacco user Cigarette Packs Per Day: 0.1 Cigarettes Per Day: 6 Years Smoked: 40 e-Cigarette/Vaping Use: Never Used Second Hand Smoke Exposure: No service: No Current occupational status: disabled Sexual orientation: Straight/Heterosexual Gender identity: Female Cognitive needs: No Hearing needs: No Vision needs: No Assessment & Plan Assessment & Plan (1) Abnormal weight gain: Code(s): R63.5 - Abnormal weight gain Category: Medical Plan: Wt: 93Kg ( 03/24 ) Est kcal needs as per MSJ: 1700 (40% carb, 30% protein/fat) Est fluid needs as per 25-30 ml/d: 2800 Est prot per day as per 1 g/kg bw: 93 Recommend fiber intake : 8-10 g per day and gradually increase to 25-28 g per day for women and 35-38 g for men or as tolerated Recommend sodium intake per day : less than 2300 mg Educated patient on: ( R = reviewed V = verbalizes understanding N/R = needs review N/A = not applicable * Food sources of carbohydrate, adequate serving sizes and its role in various health conditions: R V N/R * Differences between complex carbohydrates a simple carbohydrates, role of fiber in diet: R * Lean protein sources of foods: R V NR * Differences between types of fats and role in diet (mono on saturated fat fatty acids, saturated fatty acids, trans fats): R * Food sources of sodium in salt and healthy modifications for heart health in kidney health: R V R/V * Vitamins and minerals: R V N/R * Healthy plate method concept: R V N/R * Physical activity: Benefits a precaution: R V N/R Patient Instructions: Choose low sugar beverages, water with lemon,dilute juices/beverages with water HAve 1 flavored packet of oatmeal and 1 unflavored vs 2 flavored, reducing on sugar amount Coding Level of Care Code Nutr Indiv Intake (91189) Diagnoses Abnormal weight gain R63.5 Time Spent (min) 30
[2024-03-15 11:12] VITALS: BMI 35.2
[2024-03-20 13:18] VITALS: BMI 35.2
== END 2024-03-15 11:38 | disposition home or self-care (01) ==
PROVIDERS: PCP Nurse Practitioner Family; Visit Provider Dietitian, Registered
DX: R63.5 Abnormal weight gain (principal)

== ENCOUNTER → 2024-03-15 10:45 | Outpatient (BNVA) | payer OTHER, SELFPAY | PROVIDERS: PCP Nurse Practitioner Family; Visit Provider Dietitian, Registered | DX: R63.5 Abnormal weight gain (principal) | CPT/HCPCS: 97802 ==

== ENCOUNTER 2024-03-16 13:48 | Outpatient (AMB) | payer OTHER, SELFPAY ==
--- NOTE | 2024-03-16 13:53 | A.OFFVIS_ITS ---
Vital Signs 03/16/24 13:54 Height 5 ft 4 in Weight 199 lb 11.821 oz BMI 34.3 BP 156/80 H Blood Pressure Location Rt brachial Position Sitting Pulse 86 Pulse Source Pulse Oximeter Pulse Oximetry (%) 96 Oxygen Delivery Method Room Air Intake Visit Reasons: Colonoscopy Screening Intake Note: NEW PATIENT Reason; Screening, recall. Ref by PROTOTYPE ENGINEER MANAGER. Last PCP OV 11/2023 Prior hx of colo/egd? '09 w/ [facility]. Concerns/Questions? No significant concerns per pt. Allergies acetaminophen [Vicodin] Allergy (Unknown, Verified 03/16/24 13:58) tongue swells, hives on bottom of feet adhesive tape [Adhesive Tape] Allergy (Unknown, Verified 03/16/24 13:58) Rash hydrocodone [Vicodin] Allergy (Unknown, Verified 03/16/24 13:58) tongue swells, hives on bottom of feet latex [Latex] Allergy (Unknown, Verified 03/16/24 13:58) Rash, red blisters penicillin V Allergy (Unknown, Verified 03/16/24 13:58) hives, rash Penicillins Allergy (Unknown, Verified 03/16/24 13:58) Rash, Nausea and Vomiting Sulfa (Sulfonamide Antibiotics) Allergy (Unknown, Verified 03/16/24 13:58) Hives, rash amphetamine [Adderall] Adverse Reaction (Unknown, Verified 03/16/24 13:58) diarrhea dextroamphetamine [Adderall] Adverse Reaction (Unknown, Verified 03/16/24 13:58) diarrhea morphine [MORPHINE] Adverse Reaction (Unknown, Verified 03/16/24 13:58) Nausea and Vomiting phenobarbital [Phenobarbital] Adverse Reaction (Unknown, Verified 03/16/24 13:58) extreme hyperactivity meperidine [From Demerol] Adverse Reaction (Verified 03/16/24 13:58) Vomiting HPI HPI Colonoscopy Screening: Details: ear old? female history of stroke 2 years ago, expressive aphasia, dysgraphia, hypertension, osteoporosis, DANIEL, dyslipidemia, hypotonic bladder, CKD, infection due to ESBL producing E coli, status post left mastectomy due to severe bacterial infection 8 months ago, history of cholecystectomy 7 months ago is here today for pre colonoscopy screening.? Patient was sent to us by his/her PCP.? Last colonoscopy in 2008.? Patient denies any gastrointestinal symptoms in the past or at present.? Denies any personal or family history of gastrointestinal disease, colon polyps, or CRC.? Denies history of difficulty with sedation or anesthesia in the past.? Denies any history of cardiac, renal, pulmonary, or hepatic disease.?? No history of infectious? diseases like hepatitis A, B, C, HIV or tuberculosis.? Patient is on low-dose aspirin PFSH Medical History FH: cholecystectomy Hypersomnia Snoring Expressive aphasia Dysgraphia Stroke Multiple allergies Cholelithiasis Overactive bladder Recurrent urinary tract infection History of CVA with residual deficit Expressive aphasia History of CVA (cerebrovascular accident) Refused influenza vaccine COVID-19 vaccination declined Impaired fasting glucose Dyslipidemia Osteoporosis Psoriasis Gestational diabetes Hx of uterine prolapse Osteoarthritis of knees, bilateral Bipolar 1 disorder CKD (chronic kidney disease) stage 2, GFR 60-89 ml/min Essential hypertension Rectocele Urge incontinence Elevated blood pressure reading in office with diagnosis of hypertension Hypotonic bladder Urinary tract infection Dyspareunia in female Surgical History History of partial mastectomy of left breast History of bilateral oophorectomy H/O mastectomy Hx of cholecystectomy History of total left knee replacement (TKR) History of total right knee replacement (TKR) History of Maloney urethropexy Hx of total vaginal hysterectomy H/O rectocele repair Family History Father Diabetes mellitus CHF (congestive heart failure) Mother FH: stomach cancer Crohn disease Son Mental health disorder Social History Household Members: Children Housing: Apartment Do you presently have visiting nurse or other home services: Yes Alcohol intake: never Patient Tobacco Use Status: Current someday Tobacco user Cigarette Packs Per Day: 0.1 Cigarettes Per Day: 6 Years Smoked: 40 e-Cigarette/Vaping Use: Never Used Second Hand Smoke Exposure: No service: No Current occupational status: disabled Sexual orientation: Straight/Heterosexual Gender identity: Female Cognitive needs: No Hearing needs: No Vision needs: No Review of Systems Const Denies weight gain and Denies weight loss ENT Reports no additional complaints, Denies dysphagia and Denies odynophagia Card Reports no additional complaints Resp Reports no additional complaints GI Denies abdominal pain, Denies belching, Denies melena, Denies bloating, Denies change in bowel habits, Denies dysphagia, Denies excessive flatus, Denies dyspepsia, Denies heartburn, Denies diarrhea, Denies loose stools, Denies nausea, Denies odynophagia and Denies vomiting Musc Reports no additional complaints Neuro Reports no additional complaints Psych Reports no additional complaints Endo Reports no additional complaints Physical Exam Vital Signs: Last Vital Signs Pulse 86 03/16/24 13:54 BP 156/80 H 03/16/24 13:54 Pulse Ox 96 03/16/24 13:54 Oxygen Delivery Method Room Air 03/16/24 13:54 BMI result Body Mass Index 34.3 Const Other: Expressive aphasia General: healthy appearing and no acute distress Nutritional Appearance: obese Orientation/consciousness: patient oriented x3 Resp Effort & Inspection: normal respiratory effort, able to speak in complete sentences, no tracheal deviation and symmetric chest movement Auscultation: clear to auscultation bilaterally Cardio Rate: regular rate GI Inspection: Yes normal to inspection, No distended and Yes obesity Palpation (GI): Soft to palpation, not firm, nontender and No hepatosplenomegaly present Auscultation: normal bowel sounds General: Yes no CVA tenderness Back/Spine/Pelvis Back: no CVA tenderness Skin General skin exam: elasticity normal, turgor normal and dry skin Neuro General: patient oriented x3 Psych Appearance: grossly normal Mental Status: mental status grossly normal Assessment & Plan Assessment & Plan (1) Encounter for screening colonoscopy: Code(s): Z12.11 - Encounter for screening for malignant neoplasm of colon Category: Medical Plan Patient denies any GI, cardiac or respiratory symptoms.? Denies any issues with anesthesia in the past.? History of sleep apnea. Patient has a history of stroke 2 years ago. Patient had anesthesia 7 months ago for cholecystectomy and did well.? On low-dose aspirin.? No family or personal history of colon cancer or polyps.? Patient denies melena, hematochezia, unintentional weight loss or ribbon like stools.? Discussed at length the pre-procedure,? prep, diet & medications as well as what to expect prior, during and after the procedure.?? Stressed the importance of good bowel prep.? Recommended the use of Vaseline or Calmoseptine OTC & baby wipes with bowel movements to promote comfort.? ?Patient verbalizes understanding and agrees to plan of care.? She was given the opportunity to ask questions and all questions answered.? We will see her after the procedure.? Medications: New bisacodyl (Dulcolax (bisacodyl)) take 4 tabs at noon the day before your colonoscopy 20 mg (4 x 5 mg) PO ONCE 1 day 4 tabs 0RF Z12.11 - Encounter for screening for malignant neoplasm of colon polyethylene glycol 3350 (Miralax) As directed by gastroenterology department at [facility] 238 grams PO ONCE 238 grams 0RF Z12.11 - Encounter for screening for malignant neoplasm of colon Coding Level of Care Code New Pt Level 3 (40146) Diagnoses Encounter for screening colonoscopy Z12.11 Time Spent (min) 40 Comment 30 minutes spent with patient and additional 10 minutes spent reviewing her records
[2024-03-16 13:54] VITALS: BP 156/80; PULSE 86; O2SAT 96; BMI 34.3
== END 2024-03-16 16:38 | disposition home or self-care (01) ==
PROVIDERS: PCP Nurse Practitioner Family; Visit Provider Nurse Practitioner Family
DX: Z01.818 Encounter for other preprocedural examination (principal); Z12.11 Encounter for screening for malignant neoplasm of colon
CPT/HCPCS: 99024

== ENCOUNTER → 2024-03-16 13:48 | Outpatient (BNVA) | payer OTHER, SELFPAY | PROVIDERS: PCP Nurse Practitioner Family; Visit Provider Nurse Practitioner Family | DX: Z12.11 Encounter for screening for malignant neoplasm of colon (principal) | CPT/HCPCS: 99212 ==

== ENCOUNTER → 2024-04-04 09:38 | Outpatient (BNVA) | payer OTHER, SELFPAY | PROVIDERS: PCP Nurse Practitioner Family; Visit Provider Nurse Practitioner Family | DX: I10 Essential (primary) hypertension (principal) | CPT/HCPCS: 99212 ==

== ENCOUNTER 2024-04-12 11:10 | Outpatient (AMB) | payer OTHER, SELFPAY ==
--- NOTE | 2024-04-12 11:42 | A.OFFVIS_ITS ---
VS Expanded 04/12/24 11:43 Height 5 ft 4 in Weight 201 lb 11.567 oz BMI 34.6 Intake Visit Reasons: abnormal weight gain Allergies acetaminophen [Vicodin] Allergy (Unknown, Verified 04/04/24 09:56) tongue swells, hives on bottom of feet adhesive tape [Adhesive Tape] Allergy (Unknown, Verified 04/04/24:56) Rash hydrocodone [Vicodin] Allergy (Unknown, Verified 04/04/24:56) tongue swells, hives on bottom of feet latex [Latex] Allergy (Unknown, Verified 04/04/24:56) Rash, red blisters penicillin V Allergy (Unknown, Verified 04/04/24:56) hives, rash Penicillins Allergy (Unknown, Verified 04/04/24) Rash, Nausea and Vomiting Sulfa (Sulfonamide Antibiotics) Allergy (Unknown, Verified 04/04/24:) Hives, rash amphetamine [Adderall] Adverse Reaction (Unknown, Verified 04/04/24:56) diarrhea dextroamphetamine [Adderall] Adverse Reaction (Unknown, Verified 04/04/24:56) diarrhea morphine [MORPHINE] Adverse Reaction (Unknown, Verified 04/04/24:56) Nausea and Vomiting phenobarbital [Phenobarbital] Adverse Reaction (Unknown, Verified 04/04/24:) extreme hyperactivity meperidine [From Demerol] Adverse Reaction (Verified 04/04/24) Vomiting Nutrition Presentation Details: Pt presents for MNT f/u for obesity Pt reports working on reducing sugars and choosing fiber rich foods. Pt's son is present during the appointment, son assist with meal preparation BS Monitoring Most Recent Diabetes Results: Creatinine 1.07 mg/dL (0.5-1.4) 02/06/24 Blood Urea Nitrogen 13 mg/dL (9-16) 02/06/24 Sodium 144 mmol/L (135-145) 02/06/24 Potassium 4.1 mmol/L (3.3-5.1) 02/06/24 Chloride 109 mmol/L (96-108) H 02/06/24 Carbon Dioxide 26 mmol/L (22-29) 02/06/24 Calcium 9.6 mg/dL (8.4-10.2) 02/06/24 Albumin 4.4 g/dL (3.5-5.0) 02/06/24 [facility] Medical History FH: cholecystectomy Hypersomnia Snoring Expressive aphasia Dysgraphia Stroke Multiple allergies Cholelithiasis Overactive bladder Recurrent urinary tract infection History of CVA with residual deficit Expressive aphasia History of CVA (cerebrovascular accident) Refused influenza vaccine COVID-19 vaccination declined Impaired fasting glucose Dyslipidemia Osteoporosis Psoriasis Gestational diabetes Hx of uterine prolapse Osteoarthritis of knees, bilateral Bipolar 1 disorder CKD (chronic kidney disease) stage 2, GFR 60-89 ml/min Essential hypertension Rectocele Urge incontinence Elevated blood pressure reading in office with diagnosis of hypertension Hypotonic bladder Urinary tract infection Dyspareunia in female Surgical History History of partial mastectomy of left breast History of bilateral oophorectomy H/O mastectomy Hx of cholecystectomy History of total left knee replacement (TKR) History of total right knee replacement (TKR) History of Maloney urethropexy Hx of total vaginal hysterectomy H/O rectocele repair Family History Father Diabetes mellitus CHF (congestive heart failure) Mother FH: stomach cancer Crohn disease Son Mental health disorder Social History Household Members: Children Housing: Apartment Do you presently have visiting nurse or other home services: Yes Alcohol intake: never Patient Tobacco Use Status: Current someday Tobacco user Cigarette Packs Per Day: 0.1 Cigarettes Per Day: 6 Years Smoked: 40 e-Cigarette/Vaping Use: Never Used Second Hand Smoke Exposure: No service: No Current occupational status: disabled Sexual orientation: Straight/Heterosexual Gender identity: Female Cognitive needs: No Hearing needs: No Vision needs: No Assessment & Plan Assessment & Plan (1) Abnormal weight gain: Code(s): R63.5 - Abnormal weight gain Category: Medical Plan: Wt: 93Kg ( 03/24 ), 92kg (04/24) Est kcal needs as per MSJ: 1700 (40% carb, 30% protein/fat) Est fluid needs as per 25-30 ml/d: 2800 Est prot per day as per 1 g/kg bw: 93 Recommend fiber intake : 8-10 g per day and gradually increase to 25-28 g per day for women and 35-38 g for men or as tolerated Recommend sodium intake per day : less than 2300 mg Educated patient on: ( R = reviewed V = verbalizes understanding N/R = needs review N/A = not applicable * Food sources of carbohydrate, adequate serving sizes and its role in various health conditions: R * Differences between complex carbohydrates a simple carbohydrates, role of fiber in diet: R * Lean protein sources of foods: R * Differences between types of fats and role in diet (mono on saturated fat fatty acids, saturated fatty acids, trans fats): R * Food sources of sodium in salt and healthy modifications for heart health in kidney health: R * Vitamins and minerals: R V N/R * Healthy plate method concept: R V N/R * Physical activity: Benefits a precaution: R Patient Instructions: * Choose a fruit as snack in place of bread/chips and similar * choose low sodium foods - read labels (less than 500 mg as a meal and less than 120 mg as snack Coding Level of Care Code Nutr Indiv Subseq (07096) Diagnoses Abnormal weight gain R63.5 Time Spent (min) 20
[2024-04-12 11:43] VITALS: BMI 34.6
--- OUTSIDE RECORDS SUMMARY | 2024-04-12 11:50 | XMS_ITS | Clinical Summary ---
Author Organization [facility]ly [facility] Facility Address [address] [place] [address] Care Team Providers Care Global Marketing Operations Manager Name Role Phone Terese Silvestre SUSHMA Primary Care Provider [phone] Allergies Active Allergy Reactions Criticality Noted Date Comments Hydrocodone-Acetaminophen Other (see comments) 07/07/2020 Iodinated Contrast Media Other (see comments) 0 07/07/2020 Latex 04/02/2021 Penicillins Other (see comments) 07/07/2020 Phenobarbital Other (see comments) 07/07/2020 Sulfadiazine 04/02/2021 Medications Multiple Vitamin (MULTI-VITAMIN DAILY PO) Take 1 tablet by mouth 1 (one) time each day Active atomoxetine (STRATTERA) 40 MG capsule Take 1 capsule by mouth 1 (one) time each day Active QUEtiapine (SEROquel) 50 MG tablet Take 1 tablet by mouth 1 (one) time each day Active atorvastatin (LIPITOR) 80 MG tablet Take 80 mg by mouth 1 (one) time each day Active aspirin (ST RED) 81 MG EC tablet Take 81 mg by mouth 1 (one) time each day Active lisinopril 20 MG tablet Take 20 mg by mouth 1 (one) time each day Active amLODIPine (NORVASC) 5 MG tablet Take 1 tablet (5 mg total) by mouth 1 (one) time each day 90 tablet 3 08/20/19 23 Active estradiol (ESTRACE) 0.1 MG/GM vaginal cream 02/07/20 24 Active zolpidem (Ambien) 10 MG tablet Take 1 tablet (10 mg total) by mouth at night if needed for sleep 03/15/19 25 Active metoprolol succinate XL (Toprol XL) 100 MG 24 hr tablet Take 1 tablet (100 mg total) by mouth 1 (one) time each day Do not crush or chew. 01/16/20 25 Active nitrofurantoin (MACRODANTIN) 100 MG capsule Take 1 capsule by mouth every night 025 Discontinued(Di scontinued by another clinician (does not appear on AVS)) OXcarbazepine ER (Oxtellar XR) 150 MG tablet sustained-rele ase 24 hour Take 1 tablet by mouth 3 times a day 025 Discontinued(Di scontinued by another clinician (does not appear on AVS)) oxybutynin XL (DITROPAN-XL) 5 MG 24 hr tablet Take 1 tablet by mouth 1 (one) time each day 025 Discontinued(Di scontinued by another clinician (does not appear on AVS)) raloxifene (EVISTA) 60 MG tablet Take 1 tablet by mouth 1 (one) time each day 025 Discontinued(Di scontinued by another clinician (does not appear on AVS)) zolpidem (AMBIEN) 5 MG tablet Take 1 tablet by mouth at bed time 025 Discontinued chlorthalidone (HYGROTON) 50 MG tablet Take 50 mg by mouth 1 (one) time each day 025 Discontinued(Di scontinued by another clinician (does not appear on AVS)) metoprolol succinate XL (TOPROL XL) 25 MG 24 hr tablet Take 3 tablets (75 mg total) by mouth 1 (one) time each day Do not crush or chew. 270 tablet 3 03/11/19 23 025 Discontinued Active Problems Problem Noted Date Diagnosed Date Benign essential hypertension 07/07/2020 Chronic kidney disease stage 3 07/07/2020 Chronic kidney disease stage 2 07/07/2020 Hypertensive renal disease 07/07/2020 Proteinuria 07/07/2020 Encounters Date Type Department Care Team Description 03/15/2024 1:00 PM EST Office Visit [facility] [address] [address] Pedro Lee MD Chronic kidney disease stage 2 (Primary Dx); Hypertensive renal disease; Other proteinuria from Last 3 Months Family History Medical History Relation Comments Diabetes Father Heart disease Father Kidney disease Father Cancer Mother Dementia Mother Stroke Mother Relation Status Comments Father Mother Social History Tobacco Use Types Packs/Day Years Used Date Smoking Tobacco: Former Smokeless Tobacco: Never Tobacco Cessation:Counseling Given: No Alcohol Use Standard Drinks/Week Comments Yes 0 (1 standard drink = 0.6 oz pure alcohol) Alcoholic Drinks/day: Occasional social drink Comments Unknown Sex and Gender Information Value Date Recorded Sex Assigned at Not on file Legal Sex Female 5:10 PM EST Gender Identity Not on file Sexual Orientation Not on file Last Filed Vital Signs Vital Sign Reading Time Taken Comments Blood Pressure 143/85 03/15/2024 12:58 PM EST Pulse 84 03/15/2024 12:58 PM EST Temperature - - Respiratory Rate - - Oxygen Saturation 97% 03/15/2024 12:58 PM EST Inhaled Oxygen Concentration - - Weight 93 kg (205 lb) 03/15/2024 12:58 PM EST Height 162.6 cm (5' 4 ) 04/02/2021 4:29 PM EST Body Mass Index 35.19 04/02/2021 4:29 PM EST Plan of Treatment Upcoming Encounters Date Type Department Care Team (Late st Contact Info) Description 03/14/2025 2:30 PM EST Office Visit [facility] [address] [place] [id number] Pedro Lee MD [address] [address] Health Maintenance Due Date Last Done Comments Breast Cancer Screening 1955 Pneumococcal Vaccine: 65+ Ye ars (1 of 2 - PCV) 1962 Colorectal Cancer Screening: Annual FOBT 2005 Colorectal Cancer Screening: Colonoscopy 2005 Colorectal Cancer Screening: Sigmoidoscopy 2005 Influenza Vaccine (#1) 2023 Hepatitis B Vaccine Aged Out No longe r eligible based on patient's age to complete this topic Insurance [facility] ([id number]) [facility] ([id number]) Care Teams Global Marketing Operations Manager Relationship Specialty Start Date End Date Terese Silvestre CNP [address], [place] [id number] PCP - General 03/16/22
--- OUTSIDE RECORDS SUMMARY | 2024-04-12 11:50 | XMS_ITS | Encounter Summary ---
Author Organization [facility] Address [address] [facility] [address] [place] [address] Phone Care Team Providers Care Treasury Director Name Role Phone Terese Silvestre CNP Primary Care Provider [phone] Reason for Visit * Reason Comments Med Refill Encounter Details Date Type Department Care Team (Late st Contact Info) Description 09/16/2020 Refill [facility] [address] [place] [address] Pedro Lee MD [address] [address] Social History Tobacco Use Types Packs/Day Years Used Date Smoking Tobacco: Former Alcohol Use Standard Drinks/Week Comments Yes 0 (1 standard drink = 0.6 oz pure alcohol) Alcoholic Drinks/day: Occasional social drink Comments Unknown Sex and Gender Information Value Date Recorded Sex Assigned at Not on file Legal Sex Female 5:10 PM EST Gender Identity Not on file Sexual Orientation Not on file documented as of this encounter Plan of Treatment Upcoming Encounters Date Type Department Care Team (Late st Contact Info) Description 03/14/2025 2:30 PM EST Office Visit [facility] [address] [place] [address] Pedro Lee MD [address] [facility] [address] [place] [address] documented as of this encounter Visit Diagnoses Not on filedocumented in this encounter Care Teams Treasury Director Relationship Specialty Start Date End Date Terese Silvestre CNP [address] [place] [address] PCP - General 03/16/22 documented as of this encounter
--- OUTSIDE RECORDS SUMMARY | 2024-04-12 11:50 | XMS_ITS | Encounter Summary ---
Author Organization [facility] Address [address] [place] [phone] Phone Care Team Providers Care Marble Installer Supervisor Name Role Phone Terese Silvestre CNP Primary Care Provider [phone] Reason for Visit * Reason Comments Chronic kidney disease stage 2 Encounter Details Date Type Department Care Team (Late st Contact Info) Description 03/15/2024 1:00 PM EST Office Visit [facility] [address] [place] [phone] Pedro Lee MD [address] [phone] Chronic kidney disease stage 2 (Primary Dx); Hypertensive renal disease; Other proteinuria Social History Tobacco Use Types Packs/Day Years Used Date Smoking Tobacco: Former Smokeless Tobacco: Never Alcohol Use Standard Drinks/Week Comments Yes 0 (1 standard drink = 0.6 oz pure alcohol) Alcoholic Drinks/day: Occasional social drink Comments Unknown Sex and Gender Information Value Date Recorded Sex Assigned at Not on file Legal Sex Female 5:10 PM EST Gender Identity Not on file Sexual Orientation Not on file documented as of this encounter Last Filed Vital Signs Vital Sign Reading Time Taken Comments Blood Pressure 143/85 03/15/2024 12:58 PM EST Pulse 84 03/15/2024 12:58 PM EST Temperature - - Respiratory Rate - - Oxygen Saturation 97% 03/15/2024 12:58 PM EST Inhaled Oxygen Concentration - - Weight 93 kg (205 lb) 03/15/2024 12:58 PM EST Height - - Body Mass Index 35.19 04/02/2021 4:29 PM EST documented in this encounter Progress Notes * Pedro Lee MD - 03/15/2024 1:00 PM EST [facility] Patient Name: Bev Cooney, Female Date of : 1955, 68 y.o. Date: 03/15/2024 [] New Patient [x] Established Patient [] New Hospital Follow Up [] Established Hospital Follow Up [] Telemed Visit [] H&P Referring MD: No primary care provider on file. PCP: Terese Silvestre CNP Chief Complaint: Chief Complaint Patient presents with Chronic kidney disease stage 2 Reason For Visit: Bev Cooney is a 68 y.o. female for Chronic Kidney Disease and HTN f/u Patient had a CVA - Pt had expressive aphasia Now is feeling OK BP well controlled No CP. Has lost weight No UTI symptoms No Fever/ Chills Edema,is better. Patient denies nausea, vomiting, cough, The following portions of the patient's chart were reviewed in this encounter and updated as appropriate: Allergies Meds Problems Med Hx Surg Hx Fam Hx ROS Constitutional: Negative for chills and fever. HENT: Negative for congestion, ear pain, hearing loss and sore throat. Eyes: Negative for pain and discharge. Respiratory: Negative for cough, shortness of breath and wheezing. Cardiovascular: Negative for chest pain, palpitations and leg swelling. Gastrointestinal: Negative for abdominal pain, blood in stool, constipation, diarrhea, nausea and vomiting. Genitourinary: Negative for dysuria, frequency, hematuria and urgency. Musculoskeletal: Negative for back pain, myalgias and neck pain. Skin: Negative for rash. Neurological: Negative for dizziness, tremors and headaches. Endo/Heme/Allergies: Negative for polydipsia. Does not bruise/bleed easily. Full 13 point review of systems unremarkable except as noted above. Past Medical History: Diagnosis Date Chronic kidney disease stage 2 Depressive disorder History of recurrent urinary tract infection Hypertension Osteoarthritis Type 2 diabetes mellitus (HCC) Past Surgical History: Procedure Laterality Date HYSTERECTOMY KNEE ARTHROPLASTY Social History Tobacco Use Smoking status: Former Smokeless tobacco: Never Substance Use Topics Alcohol use: Yes Comment: Alcoholic Drinks/day: Occasional social drink Family History Problem Relation Age of Onset Kidney disease Father Diabetes Father Heart disease Father Cancer Mother Stroke Mother Dementia Mother Current Outpatient Medications Medication Sig Dispense Refill amLODIPine (NORVASC) 5 MG tablet Take 1 tablet (5 mg total) by mouth 1 (one) time each day 90 tablet 3 aspirin (ST RED) 81 MG EC tablet Take 81 mg by mouth 1 (one) time each day atomoxetine (STRATTERA) 40 MG capsule Take 1 capsule by mouth 1 (one) time each day atorvastatin (LIPITOR) 80 MG tablet Take 80 mg by mouth 1 (one) time each day estradiol (ESTRACE) 0.1 MG/GM vaginal cream lisinopril 20 MG tablet Take 20 mg by mouth 1 (one) time each day Multiple Vitamin (MULTI-VITAMIN DAILY PO) Take 1 tablet by mouth 1 (one) time each day QUEtiapine (SEROquel) 50 MG tablet Take 1 tablet by mouth 1 (one) time each day metoprolol succinate XL (Toprol XL) 100 MG 24 hr tablet Take 1 tablet (100 mg total) by mouth 1 (one) time each day Do not crush or chew. zolpidem (Ambien) 10 MG tablet Take 1 tablet (10 mg total) by mouth at night if needed for sleep No current facility-administered medications for this visit. Allergies Allergen Reactions Hydrocodone-Acetaminophen Other (see comments) Iodinated Contrast Media Other (see comments) Latex Penicillins Other (see comments) Phenobarbital Other (see comments) Sulfadiazine Objective: Vitals: 03/15/24 1258 BP: 143/85 BP Location: Right upper arm Patient Position: Sitting BP Cuff Size: Large adult Pulse: 84 SpO2: 97% Weight: 205 lb (93 kg) Vitals reviewed. Vitals reviewed. Constitutional: Patient does not appear ill. HEENT: BING , No JVD Nose: Nose normal. Mouth/Throat: Oropharynx is clear and moist. Eyes: Conjunctivae are normal. Pupils are equal, round, and reactive to light. No scleral icterus. Neck: No thyroid mass and no thyromegaly present. Cardiovascular: Normal rate and regular rhythm. Exam reveals no friction rub. No murmur heard. No edema. Pulmonary/Chest: Effort normal and breath sounds normal. No respiratory distress. No wheezes. No rales. Abdominal: Soft. There is no abdominal tenderness. No hernia. Musculoskeletal: Normal range of motion. She exhibits no deformity. Skin: Skin is warm and dry. No rash noted. No erythema. Psychiatric: Normal mood and affect. EST GFR Date Value Ref Range Status 08/08/2020 69 ML/MIN/1.73 M2 Final Comment: Creatinine based estimated glomerular filtration rate (eGFR) is calculated using the Chronic Kidney Disease Epidemiology Collaboration (CKD-EPI). The CKD-EPI creatinine equation has not been validated in children (<18 years), women or in some racial or ethnic subgroups other than Caucasians and Americans. Testing performed or reported by [facility], a Service of [facility], [address] [place] [id number] Cricket Eduardo MD, Ski Lift Operator eGFR Non-Afr [place]ese Date Value Ref Range Status 10/19/2023 69 Final Chemistry Lab Units 10/19/23 0000 02/19/23 0000 12/02/22 1203 07/19/22 1003 CREATININE mg/dL 0.92 0.90 1.3* 1.4* BUN mg/dL 15 13 28* 24* EGFRNAFR 69 76 48 41 GLUCOSE mg/dL 184 118 160* 182* POTASSIUM mEq/L 4.1 4.4 4.1 3.9 SODIUM mEq/L 143 141 136 142 CO2 mmol/L 24 24 25 CHLORIDE 105 106.0 101 104 ALBUMIN g/dL -- 2.9* 4.3 4.3 AST U/L -- 32 -- -- ALT U/L -- 68 -- -- Bone Mineral Lab Units 10/19/23 0000 02/19/23 0000 12/02/22 1203 07/19/22 1003 CALCIUM mg/dL 9.6 8.4* 9.7 9.3 PHOSPHORUS -- 3.5 2.9 3.0 ALK PHOS U/L -- 289 -- -- MAGNESIUM -- 1.6 -- -- PTH PG/ML -- -- 63 86* VITAMIN D NG/ML -- -- 43.1 43.6 CBC Lab Units 02/19/23 0000 WBC AUTO 10*3/ML 8.4 MCV 92.5 HEMATOCRIT 28.2* HEMOGLOBIN 8.9* PLATELETS AUTO 10*3/UL 271 No lab exists for component: SPECGRAV , GLUCOSEUR , BILIRUBINUR , RBCUR , UPROTEIN , LEUKOCYTESUR , NITRITE PLAN: Assessment & Plan 1. Chronic kidney disease stage 2 2. Hypertensive renal disease 3. Other proteinuria Chronic Kidney Disease: Stage 2- secondary to HTN; Stable CKD. Last creatinine 0.92 Continue to monitor for signs of progression. Avoid NSAIDs. Emphasis on Blood Pressure Control. PROTEINURIA- on SEVERO . Proteinuria resolved . Will repeat levels Bone / Mineral Metabolism: Acceptable calcium, phosphorus, Vitamin D and intact PTH. Hypertension: Blood pressure is on the high side . Pt ia anxious and has white coat effect Recommendations below. Low sodium DASH diet. Weight loss. Regular exercise. No Changes in anti- hypertensive medications.Medications as ordered/adjusted. Continue Lisinopri daily. Continue Amlodipine. On higher dose of metoprolol Weight loss OBESITY: WEIGHT LOSS RECOMENDED. TARGET WEIGHT LOSS D/W PATIENT. Orders Placed This Encounter Vitamin D 25 hydroxy Urine Protein / creatinine ratio Renal function panel PTH, intact Return in about 1 year (around 03/15/2025). Pedro Lee MD documented in this encounter Plan of Treatment Upcoming Encounters Date Type Department Care Team (Late st Contact Info) Description 03/14/2025 2:30 PM EST Office Visit [facility] [address] [place] [id number] Pedro Lee MD [address] [address] Scheduled Orders Name Type Priority Associated Diagnoses Orde r Schedule Vitamin D 25 hydroxy Lab Routine Chronic kidney disease stage 2 Hypertensive renal disease Other proteinuria Expected: 01/27/2025, Expires: 03/30/2025 Urine Protein / creatinine ratio Lab Routine Chronic kidney disease stage 2 Hypertensive renal disease Other proteinuria Expected: 01/27/2025, Expires: 03/30/2025 Renal function panel Lab Routine Chronic kidney disease stage 2 Hypertensive renal disease Other proteinuria Expected: 01/27/2025, Expires: 03/30/2025 PTH, intact Lab Routine Chronic kidney disease stage 2 Hypertensive renal disease Other proteinuria Expected: 01/27/2025, Expires: 03/30/2025 documented as of this encounter Visit Diagnoses Diagnosis Chronic kidney disease stage 2- Primary Hypertensive renal disease Other proteinuria documented in this encounter Care Teams Marble Installer Supervisor Relationship Specialty Start Date End Date Terese Silvestre CNP [address] [place] [id number] PCP - General 03/16/22 documented as of this encounter
== END 2024-04-12 12:15 | disposition home or self-care (01) ==
PROVIDERS: PCP Nurse Practitioner Family; Visit Provider Dietitian, Registered
DX: R63.5 Abnormal weight gain (principal)

== ENCOUNTER → 2024-04-12 11:10 | Outpatient (BNVA) | payer OTHER, SELFPAY | PROVIDERS: PCP Nurse Practitioner Family; Visit Provider Dietitian, Registered | DX: R63.5 Abnormal weight gain (principal) | CPT/HCPCS: 97803 ==

== ENCOUNTER 2024-04-26 12:01 | Outpatient (AMB) | payer OTHER, SELFPAY ==
--- NOTE | 2024-04-26 12:48 | A.OFFVIS_ITS ---
Intake Visit Reasons: 3m/PVR Intake Note: Patient presents today for follow up Recurrent UTI Urology Medications: Methenamine, Vitamin C, Estradiol Cream, Tolterodine Blood Thinner: Aspirin PVR: 0ml's Pipeline Operator Required: No Accompanied by: Self / Same As Patient Allergies acetaminophen [Vicodin] Allergy (Unknown, Verified 04/26/24 13:27) tongue swells, hives on bottom of feet adhesive tape [Adhesive Tape] Allergy (Unknown, Verified 04/26/24 13:27) Rash hydrocodone [Vicodin] Allergy (Unknown, Verified 04/26/24 13:27) tongue swells, hives on bottom of feet latex [Latex] Allergy (Unknown, Verified 04/26/24 13:27) Rash, red blisters penicillin V Allergy (Unknown, Verified 04/26/24 13:27) hives, rash Penicillins Allergy (Unknown, Verified 04/26/24 13:27) Rash, Nausea and Vomiting Sulfa (Sulfonamide Antibiotics) Allergy (Unknown, Verified 04/26/24 13:27) Hives, rash amphetamine [Adderall] Adverse Reaction (Unknown, Verified 04/26/24 13:27) diarrhea dextroamphetamine [Adderall] Adverse Reaction (Unknown, Verified 04/26/24 13:27) diarrhea morphine [MORPHINE] Adverse Reaction (Unknown, Verified 04/26/24 13:27) Nausea and Vomiting phenobarbital [Phenobarbital] Adverse Reaction (Unknown, Verified 04/26/24 13:27) extreme hyperactivity meperidine [From Demerol] Adverse Reaction (Verified 04/26/24 13:27) Vomiting Medication List - Last Reconciled 04/26/24 by GENEVA Redding amlodipine 5 mg PO DAILY ascorbic acid (vitamin C) 1,000 mg PO DAILY 90 days aspirin 81 mg PO DAILY 90 days atorvastatin 80 mg PO BEDTIME 30 days lisinopril 20 mg PO DAILY 90 days methenamine hippurate 1 g PO daily 90 days metoprolol succinate ER 100 mg PO DAILY 90 days quetiapine ER 100 mg (2 x 50 mg) PO BEDTIME 30 days tolterodine ER 4 mg PO DAILY 90 days zolpidem 10 mg PO BEDTIME HPI Comments Details: Bev is a pleasant 68 year-old female patient of Dr. Silvestre who was accompanied by her son Jeremi at today's office visit. She has a past medical history of bipolar, CKD stage 2, dyslipidemia, hypertension, history of CVA with expressive aphasia, osteoarthritis, recurrent urinary tract infections, and overactive bladder. She presents to the office today for follow-up regarding her frequent urinary tract infections and overactive bladder. In discussion with the patient today she reports to be doing and feeling well. She reports compliance with Estrace cream, methenamine, vitamin-C, and tolterodine as prescribed. She currently denies any bothersome urinary issues or concerns. She denies any UTI like symptoms. In office urinalysis results reviewed with the patient today. PVR 0mL. She denies urinary urgency, urinary frequency, incontinence, nocturia, hematuria, dysuria, changes to urinary stream, flank pain, fever, and or chills. She is happy with her current voiding parameters. Patient with a previous history of following up with Infectious Disease due to ongoing E coli with resistance and colonization with intermittent infections therefore will await urine culture results for potential treatment. She discusses her recent intent ional 5 lb weight loss. She otherwise offers other issues or concerns at this time. [facility] Medical History FH: cholecystectomy Hypersomnia Snoring Expressive aphasia Dysgraphia Stroke Multiple allergies Cholelithiasis Overactive bladder Recurrent urinary tract infection History of CVA with residual deficit Expressive aphasia History of CVA (cerebrovascular accident) Refused influenza vaccine COVID-19 vaccination declined Impaired fasting glucose Dyslipidemia Osteoporosis Psoriasis Gestational diabetes Hx of uterine prolapse Osteoarthritis of knees, bilateral Bipolar 1 disorder CKD (chronic kidney disease) stage 2, GFR 60-89 ml/min Essential hypertension Rectocele Urge incontinence Elevated blood pressure reading in office with diagnosis of hypertension Hypotonic bladder Urinary tract infection Dyspareunia in female Surgical History History of partial mastectomy of left breast History of bilateral oophorectomy H/O mastectomy Hx of cholecystectomy History of total left knee replacement (TKR) History of total right knee replacement (TKR) History of Maloney urethropexy Hx of total vaginal hysterectomy H/O rectocele repair Family History Father Diabetes mellitus CHF (congestive heart failure) Mother FH: stomach cancer Crohn disease Son Mental health disorder Social History Household Members: Children Housing: Apartment Do you presently have visiting nurse or other home services: Yes Alcohol intake: never Patient Tobacco Use Status: Current someday Tobacco user Cigarette Packs Per Day: 0.1 Cigarettes Per Day: 6 Years Smoked: 40 e-Cigarette/Vaping Use: Never Used Second Hand Smoke Exposure: No service: No Current occupational status: disabled Sexual orientation: Straight/Heterosexual Gender identity: Female Cognitive needs: No Hearing needs: No Vision needs: No Review of Systems Const Reports as per HPI Eyes Reports no additional complaints ENT Reports no additional complaints Card Reports no additional complaints Resp Reports no additional complaints GI Details: Reports as per HPI Reports as per HPI Musc Reports no additional complaints Skin/Breast Reports as per HPI Neuro Reports as per HPI Endo Reports no additional complaints Physical Exam Const General: cooperative, healthy appearing, comfortable, no acute distress, well developed, alert and awake Orientation/consciousness: patient oriented x3 Limitations: other limitations (Expressive aphasia) HEENT Head: Yes normal to inspection, Yes normocephalic and Yes atraumatic Ears: hearing grossly normal bilaterally Eyes General: appearance normal, both eyes and all related structures Neck Neck: Yes normal visual inspection and Yes trachea midline Chest Other: left sided chest dressing; clean dry and intact Resp Effort & Inspection: normal respiratory effort and able to speak in complete sentences Cardio Rate: regular rate GI Inspection: Yes normal to inspection General: Yes no CVA tenderness Back/Spine/Pelvis Back: no CVA tenderness Skin General skin exam: no rashes or lesions noted Neuro General: patient oriented x3 Extrem General: Yes normal to inspection Psych Appearance: grossly normal and well kempt Mental Status: mental status grossly normal Speech and movement: Normal speech and movement present and Clear speech present Affect: normal affect Attitude: cooperative Thought process: Normal thought process present Thought content: Normal thought content present Insight: Fair insight present (Psych) Judgement: Fair judgement present (Psych) Office Procedures Post Void Residual Post Residual Void Post Void Residual (PVR): 0 [id number]-Sgpw Void Residual by ultrasound Results AMB Urinalysis, Automated UA Leukoctes 0 Emiliano/uL Last Edit by Tressa Romeo on 04/26/24 13:20 UA Nitrite Last Edit by Tressa Romeo on 04/26/24 13:20 UA Urobilinogen 0.2 mg/dL Last Edit by Tressa Romeo on 04/26/24 13:20 UA Protein 0 mg/dL Last Edit by RedHelperjuanjo Romeo on 04/26/24 13:20 UA pH 6.0 Last Edit by RedHelperjuanjo Romeo on 04/26/24 13:20 UA Blood 0 Maximiliano/uL Last Edit by RedHelperjuanjo Romeo on 04/26/24 13:20 UA Specific Sasser 1.010 Last Edit by RedHelperjuanjo Romeo on 04/26/24 13:20 UA Ketone Last Edit by RedHelperjuanjo Romeo on 04/26/24 13:20 UA Bilirubin 0 mg/dL Last Edit by RedHelperjuanjo Romeo on 04/26/24 13:20 UA Glucose 0 mg/dL Last Edit by RedHelperjuanjo Romeo on 04/26/24 13:20 Results Reviewed Results Reviewed: Laboratory Last Values Urine pH (Auto) 6.0 04/26/24 13:18 Specific Sasser (Auto) 1.010 04/26/24 13:18 Urine Protein (Auto) 0 mg/dL 04/26/24 13:18 Glucose (UA)(Auto) 0 mg/dL 04/26/24 13:18 Urine Blood (Auto) 0 Maximiliano/uL 04/26/24 13:18 Urine Bilirubin (Auto) 0 mg/dL 04/26/24 13:18 Urine Urobilinogen (Auto) 0.2 mg/dL 04/26/24 13:18 Leukocyte Esterase (Auto) 0 Emiliano/uL 04/26/24 13:18 Assessment & Plan Assessment & Plan (1) UTI due to extended-spectrum beta lactamase (ESBL) producing Escherichia coli: Code(s): N39.0 - Urinary tract infection, site not specified; B96.29 - Other Escherichia coli [E. coli] as the cause of diseases classified elsewhere; Z16.12 - Extended spectrum beta lactamase (ESBL) resistance Category: Medical (2) Recurrent urinary tract infection: Code(s): N39.0 - Urinary tract infection, site not specified Category: Medical (3) Overactive bladder: Code(s): N32.81 - Overactive bladder Category: Medical (4) Incomplete bladder emptying: Code(s): R33.9 - Retention of urine, unspecified Category: Medical (5) Foul smelling urine: Code(s): R82.90 - Unspecified abnormal findings in urine Category: Medical Plan In office urinalysis results reviewed with the patient today; as noted above. PVR 0ml's. Discussed UTI prevention with D mannose supplement, vitamin-C, increasing fluid intake, behavioral therapy with timed voiding, perineal hygiene and postcoital voiding, and management of constipation with stool softeners and increased fiber intake. Continue methenamine, vitamin-C, Estrace, and tolterodine as prescribed. Patient currently denies any bothersome urinary issues or concerns however does note intermittent episodes of foul-smelling urine She reports be happy with current voiding parameters. Follow-up in 3 months with PVR; or sooner with any issues, concerns, and or questions. Orders: Orders AMB Urinalysis Automated Today Z13.9 - Encounter for screening, unspecified AMB Post Void Residual by ultrasound Today R35.0 - Frequency of micturition Patient Instructions: The patient had an opportunity to ask questions regarding the treatment plan. All questions were answered. Physical exam, labs, and imaging were discussed and reviewed in detail. As well as risks, benefits, and discussion of treatment choices. No major barriers to understanding were identified. The patient expressed understanding and agreement with the above treatment plan. The patient was made aware they should contact our office by phone for worsening of their current condition, the appearance of new symptoms, or with any questions or concerns. Compliance is encouraged with any medications and follow up testing that is ordered. It is a privilege to be allowed the opportunity to participate in? your urological care.? Again, if you have any questions or concerns If you have any questions or concerns please do not hesitate to contact me. The office is [phone]. This note is constructed using voice recognition software. While every effort has been made to ensure accuracy protective signal installer helper errors may have been included. Yours sincerely, GENEVA Redding Coding Level of Care Code Est Pt Level 3 (35602) Complex EM visit Add On G2211 Diagnoses UTI due to extended-spectrum beta lactamase (ESBL) producing Escherichia coli N39.0; B96.29; Z16.12 Recurrent urinary tract infection N39.0 Overactive bladder N32.81 Incomplete bladder emptying R33.9 Foul smelling urine R82.90 CPT Codes Post Residual Void - PVR CPT Code: 82620-Ekhi Void Residual by ultrasound ([id number])
--- OUTSIDE RECORDS SUMMARY | 2024-04-26 14:32 | XMS_ITS | Encounter Summary ---
Author Organization [facility] Address [address] [facility] [address] [place] [address] Phone Care Team Providers Care Pumper Hand Name Role Phone Terese Silvestre CNP Primary Care Provider [phone] Reason for Visit * Reason Comments Med Refill Encounter Details Date Type Department Care Team (Late st Contact Info) Description 09/16/2020 Refill [facility] [address] [place] [address] Pedro Lee MD [address] [phone] Social History Tobacco Use Types [...] Office Visit [facility] [address] [place] [address] Pedro Lee MD [address] [facility] [address] [place] [address] documented as of this encounter Visit Diagnoses Not on filedocumented in this encounter Care Teams Pumper Hand Relationship Specialty Start Date End Date Terese Silvestre CNP [address] [place] [phone] PCP - General 03/16/22 documented as of this encounter
--- OUTSIDE RECORDS SUMMARY | 2024-04-26 14:32 | XMS_ITS | Clinical Summary ---
Author Organization [facility] Facility Address [address] [place] [address] Care Team Providers Care Registrar Nurses' Registry Name Role Phone Terese Silvestre SUSHMA Primary Care Provider [phone] Allergies Active Allergy Reactions Criticality Noted Date [...] (one) time each day 90 tablet 3 08/19/2022 Active estradiol (ESTRACE) 0.1 MG/GM vaginal cream 02/07/2024 Active zolpidem (Ambien) 10 MG tablet Take 1 tablet (10 mg total) by mouth at night if needed for sleep 03/15/2024 Active metoprolol succinate XL (Toprol XL) 100 MG 24 hr tablet Take 1 tablet (100 mg total) by mouth 1 (one) time each day Do not crush or chew. 03/15/2024 Active Active Problems Problem Noted Date Diagnosed Date Benign essential hypertension 07/07/2020 Chronic kidney disease stage 3 07/07/2020 Chronic kidney disease stage 2 07/07/2020 Hypertensive renal disease 07/07/2020 Proteinuria 07/07/2020 Encounters Date Type Department Care Team Description 03/15/2024 1:00 PM EST Office Visit [facility] [address] [phone] Pedro Lee MD Chronic kidney disease stage [...] Office Visit [facility] [address] [phone] Pedro Lee MD [address] [address] Health Maintenance Due Date Last Done Comments Breast Cancer Screening 1955 Pneumococcal Vaccine: 65+ Ye ars (1 of 2 - PCV) 1962 Colorectal Cancer Screening: Annual FOBT 2005 Colorectal Cancer Screening: Colonoscopy 2005 Colorectal Cancer Screening: Sigmoidoscopy 2005 Influenza Vaccine (#1) 2023 Hepatitis B Vaccine Aged Out No longe r eligible based on patient's age to complete this topic Insurance * Guarantor: Bev Cooney Account Type Relation to Patient Date of Phone Billing Address Personal/Family Self [address] ([id number]) ([id number]) Care Teams Registrar Nurses' Registry Relationship Specialty Start Date End Date Terese Silvestre CNP [address] [place] [address] PCP - General 03/16/22
== END 2024-04-26 13:27 | disposition home or self-care (01) ==
PROVIDERS: PCP Nurse Practitioner Family; Visit Provider Nurse Practitioner Family
DX: N39.0 Urinary tract infection, site not specified (principal); B96.29 Other Escherichia coli [E. coli] as the cause of diseases classified elsewhere; Z16.12 Extended spectrum beta lactamase (ESBL) resistance; N32.81 Overactive bladder; R33.9 Retention of urine, unspecified; R82.90 Unspecified abnormal findings in urine; Z13.9 Encounter for screening, unspecified
CPT/HCPCS: 99213; G2211

== ENCOUNTER → 2024-04-26 12:01 | Outpatient (BNVA) | payer OTHER, SELFPAY | PROVIDERS: PCP Nurse Practitioner Family; Visit Provider Nurse Practitioner Family | DX: N39.0 Urinary tract infection, site not specified (principal); B96.29 Other Escherichia coli [E. coli] as the cause of diseases classified elsewhere; N32.81 Overactive bladder; R33.9 Retention of urine, unspecified; R82.90 Unspecified abnormal findings in urine; Z16.12 Extended spectrum beta lactamase (ESBL) resistance | CPT/HCPCS: 51798; 81003; 99212 ==

== ENCOUNTER 2024-04-30 09:56 | Outpatient (REF) | payer OTHER, SELFPAY ==
--- OUTSIDE RECORDS SUMMARY | 2024-04-30 11:18 | XMS_ITS | Encounter Summary ---
Author Organization [facility] Address [address] [facility] [address] [place] [address] Phone Care Team Providers Care Cyber Legal Advisor Name Role Phone Terese Silvestre CNP Primary Care Provider [phone] Reason for Visit * Reason Comments Med Refill Encounter Details Date Type Department Care Team (Late st Contact Info) Description 09/16/2020 Refill [facility] [place] [address] [place] [address] Pedro Lee MD [address] [address] Social History Tobacco Use Types [...] Office Visit [facility] [address] [place] [address] Pedro Lee MD [address] [facility] [address] [place] [address] documented as of this encounter Visit Diagnoses Not on filedocumented in this encounter Care Teams Cyber Legal Advisor Relationship Specialty Start Date End Date Terese Silvestre CNP [address] [place] [address] PCP - General 03/16/22 documented as of this encounter
--- OUTSIDE RECORDS SUMMARY | 2024-04-30 11:18 | XMS_ITS | Clinical Summary ---
Author Organization [facility] Facility Address [address] [place] [address] Care Team Providers Care Supervisor Self Service Store Name Role Phone Terese Silvestre SUSHMA Primary Care Provider [phone] Allergies Active Allergy Reactions Criticality Noted Date [...] Office Visit [facility] [address] [phone] Pedro Lee MD Chronic kidney disease stage [...] Office Visit [facility] [address] [phone] Pedro Lee MD [address] [address] Health Maintenance Due Date Last Done Comments [...] Phone Billing Address Personal/Family Self [address] ([id number]) ([id number]) Care Teams Supervisor Self Service Store Relationship Specialty Start Date End Date Terese Silvestre CNP [address] [place] [address] PCP - General 03/16/22
[2024-04-30 11:39] LABS: Appearance Urine Clear; Color Urine Yellow; Glucose Urine UA Negative (Negative); Leukocyte Esterase Urine Negative (Negative); Nitrite Urine Negative (Negative); PH 5.5 (5.0-9.0); Urine Blood Negative (Negative); Urine Ketones Negative (Negative); Urine Protein Trace mg/dL (Neg-Trace)
[2024-04-30 12:19] LABS: Albumin Level 4.1 g/dL (3.5-5.0); Anion Gap 13 (12-20); Blood Urea Nitrogen 16 mg/dL (9-16); Calcium 9.5 mg/dL (8.4-10.2); Carbon Dioxide 26 mmol/L (22-29); Chloride 111 mmol/L (96-108); Estimated Glomerular Filt Rate > 60; Glucose Fasting 100 mg/dL (60-99); Glucose Random 101 mg/dL (60-115); Sodium 146 mmol/L (135-145)
[2024-04-30 12:23] LABS: Creatinine Urine 155.65 mg/dL; Microalbum/Creatinine Ratio Ur 39.1 ug/mg cr (<30)
== END 2024-04-30 09:57 | disposition home or self-care (01) ==
LOC: HO.WFDLDS 09:56
PROVIDERS: Referring Provider Internal Medicine Endocrinology, Diabetes & Metabolism; Visit Provider Nurse Practitioner Family
DX: Z00.00 Encounter for general adult medical examination without abnormal findings (principal); M81.0 Age-related osteoporosis without current pathological fracture
CPT/HCPCS: 36415; 80048; 81003; 82040; 82043; 82570

== ENCOUNTER 2024-05-02 13:14 | Outpatient (AMB) | payer OTHER, SELFPAY ==
--- NOTE | 2024-05-02 13:32 | AM.OFFVISNUR ---
Intake Visit Reasons: prolia Allergies acetaminophen [Vicodin] Allergy (Unknown, Verified 04/26/24 13:27) tongue swells, hives on bottom of feet adhesive tape [Adhesive Tape] Allergy (Unknown, Verified 04/26/24 13:) Rash hydrocodone [Vicodin] Allergy (Unknown, Verified 04/26/24 13:27) tongue swells, hives on bottom of feet latex [Latex] Allergy (Unknown, Verified 04/26/24 13:27) Rash, red blisters penicillin V Allergy (Unknown, Verified 04/26/24 13:27) hives, rash Penicillins Allergy (Unknown, Verified 04/26/24 13:27) Rash, Nausea and Vomiting Sulfa (Sulfonamide Antibiotics) Allergy (Unknown, Verified 04/26/24 13:) Hives, rash amphetamine [Adderall] Adverse Reaction (Unknown, Verified 04/26/24 13:) diarrhea dextroamphetamine [Adderall] Adverse Reaction (Unknown, Verified 04/26/24 13:27) diarrhea morphine [MORPHINE] Adverse Reaction (Unknown, Verified 04/26/24 13:27) Nausea and Vomiting phenobarbital [Phenobarbital] Adverse Reaction (Unknown, Verified 04/26/24 13:27) extreme hyperactivity meperidine [From Demerol] Adverse Reaction (Verified 04/26/24 13:27) Vomiting Office Meds Prolia 60 mg/mL subcutaneous syringe Performing Provider: Ziggy Ledezma MD Performing Location: [facility] Endocrinology Administered by: Yoanna Valdez RN on 05/02/24 13:32 Dose Route Admin Location Dispensed Lot Number Expiration Date [facility] Drapery Supervisor 60 mg subcut Right upper arm 1 mL [id number] 08/27/26 42471-450-52 AMGEN Comments: Consent form signed by patient. Pt tolerated injection well and denies any adverse reactions with first prolia. Assessment & Plan Assessment & Plan Orders: Orders AMB Denosumab Injection Practice Supplied Today M81.0 - Age-related osteoporosis without current pathological fracture Medications: New Prolia (denosumab) 60 mg subcut ONCE 1 mL 0RF NS M81.0 - Age-related osteoporosis without current pathological fracture Coding
--- OUTSIDE RECORDS SUMMARY | 2024-05-02 15:47 | XMS_ITS | Clinical Summary ---
Author Organization [facility] Facility Address [address] [place] [address] Care Team Providers Care Trolley Car Mechanic Name Role Phone Terese Silvestre SUSHMA Primary Care Provider [phone] Allergies Active Allergy Reactions Criticality Noted Date [...] Office Visit [facility] [address] [phone] Pedro Lee MD Chronic kidney disease stage [...] Office Visit [facility] [address] [phone] Pedro Lee MD [address] [address] Health Maintenance Due Date Last Done Comments [...] Phone Billing Address Personal/Family Self [address] ([id number]) ([id number]) Care Teams Trolley Car Mechanic Relationship Specialty Start Date End Date Terese Silvestre CNP [address] [place] [address] PCP - General 03/16/22
--- OUTSIDE RECORDS SUMMARY | 2024-05-02 15:47 | XMS_ITS | Encounter Summary ---
Author Organization [facility] Address [address] [facility] [address] [place] [address] Phone Care Team Providers Care Chemist Proteins Name Role Phone Terese Silvestre CNP Primary Care Provider [phone] Reason for Visit * Reason Comments Med Refill Encounter Details Date Type Department Care Team (Late st Contact Info) Description 09/16/2020 Refill [facility] [address] [place] [address] Pedro Lee MD [address] [phone] Social History Tobacco Use Types [...] Office Visit [facility] [address] [place] [address] Pedro Lee MD [address] [facility] [address] [place] [address] documented as of this encounter Visit Diagnoses Not on filedocumented in this encounter Care Teams Chemist Proteins Relationship Specialty Start Date End Date Terese Silvestre CNP [address] [place] [address] PCP - General 03/16/22 documented as of this encounter
== END 2024-05-02 13:31 | disposition home or self-care (01) ==
PROVIDERS: PCP Nurse Practitioner Family
DX: M81.0 Age-related osteoporosis without current pathological fracture (principal)

== ENCOUNTER → 2024-05-02 13:14 | Outpatient (BNVA) | payer OTHER, SELFPAY | PROVIDERS: PCP Nurse Practitioner Family | DX: M81.0 Age-related osteoporosis without current pathological fracture (principal) | CPT/HCPCS: 96372; J0897 ==

== ENCOUNTER 2024-05-15 07:11 | Day surgery (SDC) | payer OTHER, SELFPAY ==
--- OUTSIDE RECORDS SUMMARY | 2024-05-02 17:34 | XMS_ITS | Encounter Summary ---
Author Organization [facility] Address 100 [facility] [address] [place] [address] Phone Care Team Providers Care Manager Corporate Communications Name Role Phone Terese Silvestre CNP Primary Care Provider [phone] Reason for Visit * Reason Comments Med Refill Encounter Details Date Type Department Care Team (Late st Contact Info) Description 09/16/2020 Refill [facility] [address] [place] [address] Pedro Lee MD [address] [phone] Social History Tobacco Use Types [...] Office Visit [facility] [address] [place] [address] Pedro Lee MD 355 [facility] [address] [place] [address] documented as of this encounter Visit Diagnoses Not on filedocumented in this encounter Care Teams Manager Corporate Communications Relationship Specialty Start Date End Date Terese Silvestre CNP [address] [place] [address] PCP - General 03/16/22 documented as of this encounter
--- OUTSIDE RECORDS SUMMARY | 2024-05-02 17:34 | XMS_ITS | Clinical Summary ---
Author Organization [facility] Facility Address [address] [place] [address] Care Team Providers Care Frame Maker Name Role Phone Terese Silvestre SUSHMA Primary Care Provider [phone] Allergies Active Allergy Reactions Criticality Noted Date [...] Office Visit [facility] [address] [phone] Pedro Lee MD Chronic kidney disease stage [...] Office Visit [facility] [address] [phone] Pedro Lee MD [address] [address] Health Maintenance Due Date Last Done Comments [...] Phone Billing Address Personal/Family Self [address] ([id number]) ([id number]) Care Teams Frame Maker Relationship Specialty Start Date End Date Terese Silvestre CNP [address] [place] [address] PCP - General 03/16/22
[2024-05-11 09:49] VITALS: BMI 34.2
[2024-05-15 08:13] VITALS: BP 142/79; PULSE 82; RESP 19; TEMP 36.4; O2SAT 96; BMI 33.6
--- NOTE | 2024-05-15 08:34 | P.HPSUR_ITS ---
Pre-Procedural Eval Section A - 24 Hr Update-Section A only Date of Service: 05/15/24 Section B - Complete if H&P > 30 days Chief Complaint: screening Details of Present Illness: FH: cholecystectomy Hypersomnia Snoring Expressive aphasia Dysgraphia Stroke Multiple allergies Cholelithiasis Overactive bladder Recurrent urinary tract infection History of CVA with residual deficit Expressive aphasia History of CVA (cerebrovascular accident) Refused influenza vaccine COVID-19 vaccination declined Impaired fasting glucose Dyslipidemia Osteoporosis Psoriasis Gestational diabetes Hx of uterine prolapse Osteoarthritis of knees, bilateral Bipolar 1 disorder CKD (chronic kidney disease) stage 2, GFR 60-89 ml/min Essential hypertension Rectocele Urge incontinence Elevated blood pressure reading in office with diagnosis of hypertension Hypotonic bladder Urinary tract infection Dyspareunia in female Surgical History History of partial mastectomy of left breast History of bilateral oophorectomy H/O mastectomy Hx of cholecystectomy History of total left knee replacement (TKR) History of total right knee replacement (TKR) History of Maloney urethropexy Hx of total vaginal hysterectomy H/O rectocele repair Present Medications: see Short Stay Collaborative assessment Allergies: Allergies Allergy/AdvReac Type Severity Reaction Status Date / Time acetaminophen [Vicodin] Allergy Unknown tongue Verified 04/26/24 13:27 swells, hives on bottom of feet adhesive tape [Adhesive Tape] Allergy Unknown Rash Verified 04/26/24 13:27 hydrocodone [Vicodin] Allergy Unknown tongue Verified 04/26/24 13:27 swells, hives on bottom of feet latex [Latex] Allergy Unknown Rash, red Verified 04/26/24 13:27 blisters penicillin V Allergy Unknown hives, rash Verified 04/26/24 13:27 Penicillins Allergy Unknown Rash, Verified 04/26/24 13:27 Nausea and Vomiting Sulfa (Sulfonamide Allergy Unknown Hives, rash Verified 04/26/24 13:27 Antibiotics) amphetamine [Adderall] AdvReac Unknown diarrhea Verified 04/26/24 13:27 dextroamphetamine [Adderall] AdvReac Unknown diarrhea Verified 04/26/24 13:27 morphine [MORPHINE] AdvReac Unknown Nausea and Verified 04/26/24 13:27 Vomiting phenobarbital [Phenobarbital] AdvReac Unknown extreme Verified 04/26/24 13:27 hyperactivity meperidine [From Demerol] AdvReac Vomiting Verified 04/26/24 13:27 Review of Systems Review of Systems Comment: Ten point ROS negative Exam Exam Comment: Gen appear: No acute distress HEENT: no icterus Chest: No overt resp distress Abd: soft, nontender, nondistended Psych: Stable affect, answering questions appropriately Neuro: A/Ox3 noted to move all extremities spontaneously Ext: no peripheral edema Plan Diagnosis/Plan: Unchanged I have reviewed the history and physical and performed a pertinent physical examination on my patient. No changes have occurred unless specified. Time Spent With Patient Time: Total time managing care of this patient today ____ minutes.
[2024-05-15] MEDS: Lactated Ringers 1,000 ML 100 ML IVCONT (09:18)
--- NOTE | 2024-05-15 09:18 | HO.ANESPROP2 ---
HPI - Anesthesia Eval Consult details Narrative: 68 yo female patient for Colonoscopy PMF Active Problems Active Problems: All Active Problems (Updated 03/20/24 @ 13:19 by Echo Leal, RD, LDN) Abnormal weight gain (Acute) Foul smelling urine (Acute) Elevated PTHrP level (Acute) Urinary frequency (Acute) Erosion of vaginal mesh (Acute) Well woman exam (Acute) Vaccine counseling (Acute) Pap smear for cervical cancer screening (Acute) Incomplete bladder emptying (Acute) Open wound of chest wall, uncomplicated (Acute) S/P left mastectomy (Acute) Pre-diabetes (Acute) Anxiety (Acute) Elevated parathyroid hormone (Acute) DANIEL (obstructive sleep apnea) (Acute). Patient states not aware and not using CPAP Machine Hypersomnia (Acute) Snoring (Acute) Expressive aphasia (Acute) Dysgraphia (Acute) Hypertension (Acute) Ankle edema, bilateral (Acute) Elevated fasting glucose (Acute) Anemia (Acute) UTI due to extended-spectrum beta lactamase (ESBL) producing Escherichia coli (Acute) Ovarian cyst (Acute) Back pain (Acute) Obesity (BMI 30.0-34.9) (Acute) Physical exam, annual (Acute) Complicated urinary tract infection (Acute) Overactive bladder (Acute) Recurrent urinary tract infection (Acute) Immunization counseling (Acute) Laboratory tests ordered as part of a complete physical exam (CPE) (Acute) Encounter for screening colonoscopy (Acute) History of CVA with residual deficit (Acute) Infection due to ESBL-producing Escherichia coli (Acute) Refused influenza vaccine (Acute) COVID-19 vaccination declined (Acute) Impaired fasting glucose (Acute) Dyslipidemia (Acute) Osteoporosis (Acute) Psoriasis (Acute) Osteoarthritis of knees, bilateral (Acute) Hypotonic bladder (Acute) Bipolar 1 disorder (Acute) CKD (chronic kidney disease) stage 2, GFR 60-89 ml/min (Acute) Essential hypertension (Acute) Urge incontinence (Acute) Bartholin's gland cyst (Acute) Screening for STDs (sexually transmitted diseases) (Acute) Vaginal lump (Acute) Smoker Past Medical History Medical History FH: cholecystectomy Hypersomnia Snoring Expressive aphasia Dysgraphia Stroke Multiple allergies Cholelithiasis Overactive bladder Recurrent urinary tract infection History of CVA with residual deficit Expressive aphasia History of CVA (cerebrovascular accident) Refused influenza vaccine COVID-19 vaccination declined Impaired fasting glucose Dyslipidemia Osteoporosis Psoriasis Gestational diabetes Hx of uterine prolapse Osteoarthritis of knees, bilateral Bipolar 1 disorder CKD (chronic kidney disease) stage 2, GFR 60-89 ml/min Essential hypertension Rectocele Urge incontinence Elevated blood pressure reading in office with diagnosis of hypertension Hypotonic bladder Urinary tract infection Dyspareunia in female Family History Family History Father Diabetes mellitus CHF (congestive heart failure) Mother FH: stomach cancer Crohn disease Son Mental health disorder Family history of problems with anesthesia: No Surgical History Surgical History History of partial mastectomy of left breast History of bilateral oophorectomy H/O mastectomy Hx of cholecystectomy History of total left knee replacement (TKR) History of total right knee replacement (TKR) History of Maloney urethropexy Hx of total vaginal hysterectomy H/O rectocele repair History of Problems with Anesthesia: No Social History Social History Household Members: Children Housing: Apartment Do you presently have visiting nurse or other home services: Yes Alcohol intake: never Patient Tobacco Use Status: Current everyday Tobacco user Cigarette Packs Per Day: 0.1 Cigarettes Per Day: 6 Years Smoked: 40 e-Cigarette/Vaping Use: Never Used Second Hand Smoke Exposure: No Have you been hit, kicked, punched, or otherwise hurt by someone within the past year? If so, by whom?: No Are you DNR?: No Advance Directives: No Advance Directives Information Provided: Yes service: No Current occupational status: disabled Sexual orientation: Straight/Heterosexual Gender identity: Female Cognitive needs: No Hearing needs: No Vision needs: No Meds Allergies Allergy/AdvReac Type Severity Reaction Status Date / Time acetaminophen [Vicodin] Allergy Unknown tongue Verified 04/26/24 13:27 swells, hives on bottom of feet adhesive tape [Adhesive Tape] Allergy Unknown Rash Verified 04/26/24 13:27 hydrocodone [Vicodin] Allergy Unknown tongue Verified 04/26/24 13:27 swells, hives on bottom of feet latex [Latex] Allergy Unknown Rash, red Verified 04/26/24 13:27 blisters penicillin V Allergy Unknown hives, rash Verified 04/26/24 13:27 Penicillins Allergy Unknown Rash, Verified 04/26/24 13:27 Nausea and Vomiting Sulfa (Sulfonamide Allergy Unknown Hives, rash Verified 04/26/24 13:27 Antibiotics) amphetamine [Adderall] AdvReac Unknown diarrhea Verified 04/26/24 13:27 dextroamphetamine [Adderall] AdvReac Unknown diarrhea Verified 04/26/24 13:27 morphine [MORPHINE] AdvReac Unknown Nausea and Verified 04/26/24 13:27 Vomiting phenobarbital [Phenobarbital] AdvReac Unknown extreme Verified 04/26/24 13:27 hyperactivity meperidine [From Demerol] AdvReac Vomiting Verified 04/26/24 13:27 Active Medications: Current Medications Lactated Ringer's (Lr) 1,000 mls @ 100 mls/hr IVCONT .Q10H NORM Ondansetron HCl (Ondansetron Hcl 4 Mg/2 Ml Vial) 4 mg IVPUSH ONCE PRN PRN Reason: Nausea and Vomiting Stop: 05/15/24 15:15 Home Medications ?Medication ?Instructions ?Recorded ?Confirmed ?Last Taken ?Type zolpidem 5 mg tablet 10 mg PO BEDTIME 04/26/24 05/15/24 Unknown History Exam Height,Weight and Vital Signs: Height 5 ft 4 in Weight 88.904 kg Last Vital Signs Temp 97.5 F 05/15/24 08:13 Pulse 82 05/15/24 08:13 Resp 19 05/15/24 08:13 BP 142/79 H 05/15/24 08:13 Pulse Ox 96 05/15/24 08:13 O2 Del Method Room Air 05/15/24 08:13 Airway Mallampati Class: II TM Dist: >3cm Neck ROM: Full Denture: Upper Loose/Missing/Broken Teeth: Yes (No teeth bottom) Heart: RRR Lungs: CTAB Assessment and Plan Assessment Anesthesia Assessment: Anesthesia Plan Discussed and Chart Reviewed Final Anesthetic Review Family History of Problems with Anesthesia: No History of Problems with Anesthesia: No NPO: Yes ASA Class: III Final Preanesthetic Review: No Changes in Pt Med Stat, Meds/Allgs Chart Reviewed, Consent Obtained/Reviewed and Anes Risks/Benef Reviewed Patient Risk: Intermediate Procedure Risk: Low Assessment/Block/Sedation in : Assess/Block/Sedation- Anesthetic Plan Anesthetic Plan: TIVA Disposition: Standard PACU
--- NOTE | 2024-05-15 10:28 | P.OPN-COLO_ITS ---
Colonoscopy Operative Note Operative Note Date of Service: 05/15/24 Narrative: Procedure: Colonoscopy Indication: Screening Endoscopist: Latanya Orozco MD Anesthesia Provider: Dr Siomara Boudreaux Anesthesia type: MAC Instrument: Olympus [id number] Consent: Indication, risks vs benefits, and alternatives were discussed with the patient who gave written informed consent to proceed. EKG, pulse, pulse oximetry and blood pressure were monitored throughout the procedure. Please see anesthesia flowsheet. Procedure: The patient was brought to the procedure room and the colowrap was affixed in the usual fashion. The patient placed in the left lateral decubitus position. IV medications were administered by the anesthesia provider in attendance. A digital rectal exam was performed which was normal. A distal attachment cap was affixed to the tip of the colonoscope which was then inserted through the anus and advanced through the colon to the cecum at 75 cm,and terminal ileum. Appendiceal orifice and ileocecal valve were identified. Mucosa was carefully examined under high definition white light as the instrument was slowly withdrawn in a retrograde panoramic fashion. Retroflexion was performed in rectum. The procedure was not difficult. There were no immediate obvious complications. The quality of the prep was BBPS: 2+3+2 = adequate Withdrawal time 13 minutes. Limitations: No limitations. Findings: Mucosa: Hyperpgimentation secondary to melanosis coli abigail in the R colon otherwise mucosa normal to cecum and terminal ileum. Protruding lesions: * 2 sessile polyps of size 2-6 mm in cecum. Cold snare polypectomy was performed. The polyps were completely removed and retrieved. * 1 sessile polyp of size 8 mm in sigmoid colon. Cold snare polypectomy was performed. The polyp was completely removed and retrieved. * Medium internal hemorrhoids without stigmata of recent bleeding. Excavated lesions: * Mild diverticulosis of sigmoid colon. Impression: 1. Melanosis coli 2. Total of 3 polyps removed 3. Diverticulosis 4. Internal and external hemorrhoids Recommendations: - Follow path results. - Repeat colonoscopy in 3 years if polyps are adenomas or sessile serrated.
[2024-05-15 10:34] VITALS: BP 116/60; PULSE 80; RESP 20; TEMP 36.3; O2SAT 98
[2024-05-15 10:46] VITALS: BP 141/76; PULSE 75; RESP 18; O2SAT 98
[2024-05-15 10:58] VITALS: TEMP 36.8
== END 2024-05-15 11:34 | disposition home or self-care (01) ==
PROVIDERS: PCP Nurse Practitioner Family; Visit Provider Internal Medicine
PROC: 0DJD8ZZ Inspection of Lower Intestinal Tract, Via Natural or Artificial Opening Endoscopic (ICD-10-PCS; CPT 45378; principal; 2024-05-15 09:20)
DX: Z12.11 Encounter for screening for malignant neoplasm of colon (principal); D12.0 Benign neoplasm of cecum; D12.5 Benign neoplasm of sigmoid colon; K57.30 Diverticulosis of large intestine without perforation or abscess without bleeding; K64.8 Other hemorrhoids; K63.89 Other specified diseases of intestine; I69.320 Aphasia following cerebral infarction; I69.398 Other sequelae of cerebral infarction; I69.390 Apraxia following cerebral infarction; R27.8 Other lack of coordination; I12.9 Hypertensive chronic kidney disease with stage 1 through stage 4 chronic kidney disease, or unspecified chronic kidney disease; N18.2 Chronic kidney disease, stage 2 (mild); M81.0 Age-related osteoporosis without current pathological fracture; F31.9 Bipolar disorder, unspecified; Z79.899 Other long term (current) drug therapy; L23.1 Allergic contact dermatitis due to adhesives; Z88.0 Allergy status to penicillin; Z88.2 Allergy status to sulfonamides; Z88.5 Allergy status to narcotic agent; Z88.8 Allergy status to other drugs, medicaments and biological substances; Z91.040 Latex allergy status; Z90.49 Acquired absence of other specified parts of digestive tract; Z96.653 Presence of artificial knee joint, bilateral; Z90.10 Acquired absence of unspecified breast and nipple; F17.210 Nicotine dependence, cigarettes, uncomplicated; Z98.890 Other specified postprocedural states
CPT/HCPCS: 45385; 88305; J2003; J2704

== ENCOUNTER → 2024-05-15 07:11 | Outpatient (BNV) | payer OTHER, SELFPAY | PROVIDERS: PCP Nurse Practitioner Family; Visit Provider Internal Medicine | DX: Z12.11 Encounter for screening for malignant neoplasm of colon (principal); K63.89 Other specified diseases of intestine; D12.0 Benign neoplasm of cecum; D12.5 Benign neoplasm of sigmoid colon | CPT/HCPCS: 45385 ==

== ENCOUNTER 2024-05-24 11:49 | Outpatient (AMB) | payer OTHER, SELFPAY ==
[2024-05-24 12:33] VITALS: BMI 33.8
--- NOTE | 2024-05-24 12:33 | MHC.AMNUTRGE ---
VS Expanded 05/24/24 12:33 Height 5 ft 4 in Weight 196 lb 10.437 oz BMI 33.8 Intake Visit Reasons: Weight gain Allergies acetaminophen [Vicodin] Allergy (Unknown, Verified 04/26/24 13:27) tongue swells, hives on bottom of feet adhesive tape [Adhesive Tape] Allergy (Unknown, Verified 04/26/24 13:27) Rash hydrocodone [Vicodin] Allergy (Unknown, Verified 04/26/24 13:27) tongue swells, hives on bottom of feet latex [Latex] Allergy (Unknown, Verified 04/26/24 13:27) Rash, red blisters penicillin V Allergy (Unknown, Verified 04/26/24 13:27) hives, rash Penicillins Allergy (Unknown, Verified 04/26/24 13:) Rash, Nausea and Vomiting Sulfa (Sulfonamide Antibiotics) Allergy (Unknown, Verified 04/26/24 13:27) Hives, rash amphetamine [Adderall] Adverse Reaction (Unknown, Verified 04/26/24 13:27) diarrhea dextroamphetamine [Adderall] Adverse Reaction (Unknown, Verified 04/26/24 13:27) diarrhea morphine [MORPHINE] Adverse Reaction (Unknown, Verified 04/26/24 13:27) Nausea and Vomiting phenobarbital [Phenobarbital] Adverse Reaction (Unknown, Verified 04/26/24 13:27) extreme hyperactivity meperidine [From Demerol] Adverse Reaction (Verified 04/26/24 13:) Vomiting Nutrition Presentation Details: Pt presents for MNT f/u for abnormal weight gain Pt gradually working on diet modifications Pt is ordering mom's meal and is choosing low sodium food options 9-10 am breakfast meal life cereal and adds blueberries , 1%milk NO LUNCH MEAL and working on not having snacks to prevent ruining appetite at night dinner meal 7-9 pm mom's meal fluid 40-60z /day fruit: 1-2/d dairy: 2-3 /d ve serving twice/d fish : 0-1/wk pastries and similar 1/d Pt reports trying to walk 1 -2 miles , daily, doing ok , walks with son BS Monitoring Most Recent Diabetes Results: Microalb/Creat Ratio 39.1 ug/mg cr (<30) H 04/30/24 Cholesterol 142 mg/dL (<200) 05/28/24 HDL Cholesterol 46 mg/dL (>40) 05/28/24 Triglycerides 106 mg/dL (<150) 05/28/24 Creatinine 0.90 mg/dL (0.5-1.4) 04/30/24 Blood Urea Nitrogen 16 mg/dL (9-16) 04/30/24 Sodium 146 mmol/L (135-145) H 04/30/24 Potassium 4.0 mmol/L (3.3-5.1) 04/30/24 Chloride 111 mmol/L (96-108) H 04/30/24 Carbon Dioxide 26 mmol/L (22-29) 04/30/24 Calcium 8.9 mg/dL (8.4-10.2) 05/28/24 Albumin 4.1 g/dL (3.5-5.0) 04/30/24 [facility] Medical History FH: cholecystectomy Hypersomnia Snoring Expressive aphasia Dysgraphia Stroke Multiple allergies Cholelithiasis Overactive bladder Recurrent urinary tract infection History of CVA with residual deficit Expressive aphasia History of CVA (cerebrovascular accident) Refused influenza vaccine COVID-19 vaccination declined Impaired fasting glucose Dyslipidemia Osteoporosis Psoriasis Gestational diabetes Hx of uterine prolapse Osteoarthritis of knees, bilateral Bipolar 1 disorder CKD (chronic kidney disease) stage 2, GFR 60-89 ml/min Essential hypertension Rectocele Urge incontinence Elevated blood pressure reading in office with diagnosis of hypertension Hypotonic bladder Urinary tract infection Dyspareunia in female Surgical History History of partial mastectomy of left breast History of bilateral oophorectomy H/O mastectomy Hx of cholecystectomy History of total left knee replacement (TKR) History of total right knee replacement (TKR) History of Maloney urethropexy Hx of total vaginal hysterectomy H/O rectocele repair Family History Father Diabetes mellitus CHF (congestive heart failure) Mother FH: stomach cancer Crohn disease Son Mental health disorder Social History Household Members: Children Housing: Apartment Do you presently have visiting nurse or other home services: Yes Alcohol intake: never Patient Tobacco Use Status: Current everyday Tobacco user Cigarette Packs Per Day: 0.1 Cigarettes Per Day: 6 Years Smoked: 40 e-Cigarette/Vaping Use: Never Used Second Hand Smoke Exposure: No service: No Current occupational status: disabled Sexual orientation: Straight/Heterosexual Gender identity: Female Cognitive needs: No Hearing needs: No Vision needs: No Assessment & Plan Assessment & Plan (1) Abnormal weight gain: Code(s): R63.5 - Abnormal weight gain Category: Medical Plan: Wt: 93Kg ( 03/24 ), 92kg (04/24), 89.5 kg(05/22) Est kcal needs as per MSJ: 1700 (40% carb, 30% protein/fat) Est fluid needs as per 25-30 ml/d: 2700 Est prot per day as per 1 g/kg bw: 90 Recommend fiber intake : 8-10 g per day and gradually increase to 25-28 g per day for women and 35-38 g for men or as tolerated Recommend sodium intake per day : less than 2300 mg Educated patient on: ( R = reviewed V = verbalizes understanding N/R = needs review N/A = not applicable Food sources of carbohydrate, adequate serving sizes and its role in various health conditions: R Differences between complex carbohydrates a simple carbohydrates, role of fiber in diet: R Lean protein sources of foods: R Differences between types of fats and role in diet (mono on saturated fat fatty acids, saturated fatty acids, trans fats): R Food sources of sodium in salt and healthy modifications for heart health in kidney health: R Vitamins and minerals: R V N/R Healthy plate method concept: R Physical activity: Benefits a precaution: R Patient Instructions: Have a fruit or yogurt between breakfast and lunch Continue working on choosing low fat food options at dinner time time Work on having earlier dinner time 7pm vs 9 pm Coding Level of Care Code Nutr Indiv Subseq (49828) Diagnoses Abnormal weight gain R63.5 Time Spent (min) 25
== END 2024-05-24 13:07 | disposition home or self-care (01) ==
LOC: HO.ENCR 11:49
PROVIDERS: PCP Nurse Practitioner Family; Visit Provider Dietitian, Registered
DX: R63.5 Abnormal weight gain (principal)

== ENCOUNTER → 2024-05-24 11:49 | Outpatient (BNVA) | payer OTHER, SELFPAY | PROVIDERS: PCP Nurse Practitioner Family; Visit Provider Dietitian, Registered | DX: R63.5 Abnormal weight gain (principal) | CPT/HCPCS: 97803 ==

== ENCOUNTER 2024-05-28 10:26 | Outpatient (REF) | payer OTHER, SELFPAY ==
--- OUTSIDE RECORDS SUMMARY | 2024-05-28 11:40 | XMS_ITS | Encounter Summary ---
Author Organization [facility] Address [address] [facility] [address] [place] [address] Phone Care Team Providers Care Test Lab Technician Name Role Phone Terese Silvestre CNP Primary Care Provider [phone] Reason for Visit * Reason Comments Med Refill Encounter Details Date Type Department Care Team (Late st Contact Info) Description 09/16/2020 Refill [facility] [address] [place] [address] Pedro Lee MD [address] [phone] Social History Tobacco Use Types [...] Office Visit [facility] [address] [place] [address] Pedro Lee MD [address] [facility] [address] [place] [address] documented as of this encounter Visit Diagnoses Not on filedocumented in this encounter Care Teams Test Lab Technician Relationship Specialty Start Date End Date Terese Silvestre CNP [address] [place] [id number] PCP - General 03/16/22 documented as of this encounter
--- OUTSIDE RECORDS SUMMARY | 2024-05-28 11:40 | XMS_ITS | Clinical Summary ---
Author Organization [facility] Address [address] [place] [address] Care Team Providers Care Clinical Research Scientist Name Role Phone Terese Silvestre SUSHMA Primary Care Provider [phone] Allergies Active Allergy Reactions Criticality Noted Date [...] Office Visit [facility] [address] [phone] Pedro Lee MD Chronic kidney disease stage [...] Office Visit [facility] [address] [phone] Pedro Lee MD [address] [phone] Health Maintenance Due Date Last Done Comments [...] Phone Billing Address Personal/Family Self [address] ([id number]) ([id number]) Care Teams Clinical Research Scientist Relationship Specialty Start Date End Date Terese Silvestre CNP [address] [place] [address] PCP - General 03/16/22
[2024-05-28 13:36] LABS: Calcium 8.9 mg/dL (8.4-10.2); Cholesterol 142 mg/dL (<200); HDL Cholesterol 46 mg/dL (>40); LDL Cholesterol Calculated 75 mg/dL (<100); Triglycerides 106 mg/dL (<150); Vitamin D 25-OH Total 50.6 ng/mL (>30)
== END 2024-05-28 10:27 | disposition home or self-care (01) ==
LOC: HO.WFDLDS 10:26
PROVIDERS: Referring Provider Internal Medicine Endocrinology, Diabetes & Metabolism; Visit Provider Nurse Practitioner Family
DX: R79.89 Other specified abnormal findings of blood chemistry (principal); E78.5 Hyperlipidemia, unspecified; M81.0 Age-related osteoporosis without current pathological fracture
CPT/HCPCS: 36415; 80061; 82306; 82310; 83970

== ENCOUNTER 2024-06-05 10:04 | Outpatient (AMB) | payer OTHER, SELFPAY ==
--- NOTE | 2024-06-05 10:13 | A.OFFPC_ITS ---
Vital Signs 06/05/24 10:26 Height 5 ft 4 in Weight 199 lb 2 oz BMI 34.2 BP 128/72 Blood Pressure Location Rt brachial Position Sitting Respiration 14 Pulse 80 Pulse Source Pulse Oximeter Temp 97.9 F Temp Source Oral Pulse Oximetry (%) 95 Oxygen Delivery Method Room Air Intake Visit Reasons: cpe Intake Note: Bev presents in the office today for her annual physical. Tobacco Grader Required: No Allergies acetaminophen [Vicodin] Allergy (Unknown, Verified 06/05/24 10:36) tongue swells, hives on bottom of feet adhesive tape [Adhesive Tape] Allergy (Unknown, Verified 06/05/24 10:36) Rash hydrocodone [Vicodin] Allergy (Unknown, Verified 06/05/24 10:36) tongue swells, hives on bottom of feet latex [Latex] Allergy (Unknown, Verified 06/05/24 10:36) Rash, red blisters penicillin V Allergy (Unknown, Verified 06/05/24 10:36) hives, rash Penicillins Allergy (Unknown, Verified 06/05/24 10:36) Rash, Nausea and Vomiting Sulfa (Sulfonamide Antibiotics) Allergy (Unknown, Verified 06/05/24 10:36) Hives, rash amphetamine [Adderall] Adverse Reaction (Unknown, Verified 06/05/24 10:36) diarrhea dextroamphetamine [Adderall] Adverse Reaction (Unknown, Verified 06/05/24 10:36) diarrhea morphine [MORPHINE] Adverse Reaction (Unknown, Verified 06/05/24 10:36) Nausea and Vomiting phenobarbital [Phenobarbital] Adverse Reaction (Unknown, Verified 06/05/24 10:36) extreme hyperactivity meperidine [From Demerol] Adverse Reaction (Verified 06/05/24 10:36) Vomiting Medication List - Last Reconciled 06/05/24 by Terese Silvestre CNP amlodipine 5 mg PO DAILY ascorbic acid (vitamin C) 1,000 mg PO DAILY 90 days aspirin 81 mg PO DAILY 90 days atorvastatin 80 mg PO BEDTIME 30 days lisinopril 20 mg PO DAILY 90 days methenamine hippurate 1 g PO daily 90 days metoprolol succinate ER 100 mg PO DAILY 90 days quetiapine ER 100 mg (2 x 50 mg) PO BEDTIME 30 days tolterodine ER 4 mg PO DAILY 90 days zolpidem 10 mg PO BEDTIME Tobacco use date assessed: 06/05/24 Fall risk assessment: No Falls in past year Last assessed Fall Risk: 06/05/24 Dental Screening Dental Screen Date: 06/05/24 Did you have a dental visit in the last 12 months?: No Did you have a dental problem in the last 6 months where you did not have access to dental care?: No Was dental information given to patient?: Patient declined HPI HPI Comments History of Present Illness Details 68-year-old female presents for an exten ded physical exam. She admits to taking her medications as prescribed without adverse reactions. She sees a therapist weekly and psychiatrist every 3 months for her mood disorder. Acute issue(s) - Reports constant tingling to both feet for the past 4 weeks. Past Medical History - Hypertension, dyslipidemia, prediabete s, DANIEL, osteoporosis, recurrent UTI, overactive bladder, 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, anxiety, and bipolar 1 disorder, myopia, hyperopia, cataracts left eye Surgical History - Include laparoscopic bilateral oophore ctomy in 2022 and right left mastectomy r/t bacteria infection Social History - Smokes 3-4 cigarettes daily, 50 yrs hx on/off, max cigarettes 2ppd . Does not vape. Drinks occasionally, last drink was 2.5 years ago. Denies recreational drug use - Has been making healthy dietary choice s. Exercises routinely. Generally sleep well Health maintenance - Last eye exam with Dr. Vieira was 2 weeks ago. Will request her ophthalmology record - Last dental visit was 20-30 years ago ; encouraged to schedule an appointment with his dentist for routine dental care - Last tetanus vaccine was more than 10 years ago; received Tdap vaccine today - Has not been vaccinated for the flu ; declines vaccination - She notes that she is up-to-date on shingles vaccines - She has not been vaccinated for pneumo abdiaziz and declines the vaccines - Last pap smear test over 25 years ago. She was referred to [facility] Uro[facility]necology by Dr. De Guzman [facility] slip cover cutter; will request [facility] record for review - Last mammogram was in 07/26/2023: Norm al - Last colonoscopy was in 05/15/2024: Be nign polyps. Follow-up recommended in 3 years - Last dexa scan was in 07/18/2023: Oste oporosis. [place]ed by [facility] Specialists [facility], [facility], [facility], Ophthalmology (Dr. Vieira) , [facility] Floor Inspector, Psychiatry and Therapist ([facility]) [facility] Medical History FH: cholecystectomy Hypersomnia Snoring Expressive aphasia Dysgraphia Stroke Multiple allergies Cholelithiasis Overactive bladder Recurrent urinary tract infection History of CVA with residual deficit Expressive aphasia History of CVA (cerebrovascular accident) Refused influenza vaccine COVID-19 vaccination declined Impaired fasting glucose Dyslipidemia Osteoporosis Psoriasis Gestational diabetes Hx of uterine prolapse Osteoarthritis of knees, bilateral Bipolar 1 disorder CKD (chronic kidney disease) stage 2, GFR 60-89 ml/min Essential hypertension Rectocele Urge incontinence Elevated blood pressure reading in office with diagnosis of hypertension Hypotonic bladder Urinary tract infection Dyspareunia in female Surgical History History of partial mastectomy of left breast History of bilateral oophorectomy H/O mastectomy Hx of cholecystectomy History of total left knee replacement (TKR) History of total right knee replacement (TKR) History of Maloney urethropexy Hx of total vaginal hysterectomy H/O rectocele repair Family History Father Diabetes mellitus CHF (congestive heart failure) Mother FH: stomach cancer Crohn disease Son Mental health disorder Social History (Updated 06/05/24 @ 10:21 by Azra Hebert MA) Household Members: Children Housing: Apartment Do you presently have visiting nurse or other home services: Yes Alcohol intake: never Patient Tobacco Use Status: Current everyday Tobacco user Cigarette Packs Per Day: 0.1 Cigarettes Per Day: 6 Years Smoked: 40 e-Cigarette/Vaping Use: Never Used Second Hand Smoke Exposure: No service: No Current occupational status: disabled Sexual orientation: Straight/Heterosexual Gender identity: Female Cognitive needs: No Hearing needs: No Vision needs: No Questionnaire PHQ-9 Over the last 2 weeks, how often have you been bothered by any of the following problems? 1. Little interest or pleasure in doing things: not at all 2. Feeling down, depressed, or hopeless: not at all 3. Trouble falling or staying asleep, or sleeping too much: not at all 4. Feeling tired or having little energy: not at all 5. Poor appetite or overeating: several days 6. Feeling bad about yourself - or that you are a failure or have let yourself or your family down: not at all 7. Trouble concentrating on things, such as reading the newspaper or watching television: not at all 8. Moving or speaking so slowly that other people could have noticed. Or the opposite - being so fidgety or restless that you have been moving around a lot more than usual: not at all 9. Thoughts that you would be better off or of hurting yourself in some way: not at all Total score: 1 Depression Screening Interpretation: Negative Depression Screening Done: Yes 23882 - PHQ-9 Billing: Patient declined-do not bill Source: Developed by Drs. Ziggy Martino, Mesha Frye, Eben Dacosta and colleagues, with an educational susie from [employer]. Thrive Questionnaire Date Thrive assessed: 06/05/24 I am a: Patient What is your living situation today?: I have a steady place to live Within the past 12 months, did the food you bought not last and you didn't have the money to get more?: Never true Within the past 12 months, did you worry whether your food would run out before you got money to buy more?: Never true Do you have trouble paying for medicines?: No Do you have trouble getting transportation to medical appointments?: No Do you have trouble paying your heating and electricity bill?: No Do you have trouble taking care of your child, family member or friend?: No Do you have trouble with day-to-day activities such as bathing, preparing meals, shopping, managing finances, etc.?: No Are you currently unemployed and looking for a job?: Yes Are you interested in more education?: I choose not to answer this question Please select the resources that you would like help with: None Currently or been in a relationship where the following occur: I choose not to answer THRIVE Score: 0 AUDIT C Alcohol Use Questionnaire (AUDIT-C) 1. How often do you have a drink containing alcohol?: Never Total Score: 0 Score Reviewed/Action Taken: No JOSE-7 AMB Questionnaire JOSE-7 Date JOSE - 7 assessed: 06/05/24 Feeling nervous, anxious, or on edge: 0 = Not at all Not being able to stop or control worryin = Not at all Worrying too much about different things: 0 = Not at all Trouble relaxin = Not at all Being so restless that it is hard to sit still: 0 = Not at all Becoming easily annoyed or irritable: 0 = Not at all Feeling afraid as if something awful might happen: 0 = Not at all Total JOSE-7 score (0-4 normal; 5-9 mild; 10-14 moderate; 15-21 severe): 0 Source: Developed by Drs. Ziggy Martino, Mesha Frye, Eben Dacosta and colleagues, with an educational susie from [employer]. JOSE-7 Assessment Billing JOSE-7 Assessment Tool: JOSE-7 Assessment 29446 Review of Systems Const Details: Denies chills, Denies fatigue, Denies fever(s), Denies headache(s) and Denies weakness HEENT Denies change in vision, Denies dizziness, Denies headache(s), Denies hearing loss, Denies nasal congestion, Denies sinus pain, Denies sinus pressure and Denies sore throat Card Denies chest pain, Denies lightheadedness, Denies dyspnea and Denies other (palpitations) Resp Denies cough, Denies dyspnea and Denies wheezing GI Denies abdominal pain, Denies melena, Denies hematochezia, Denies change in bowel habits, Denies dyspepsia and Denies nausea Denies hematuria and Denies dysuria Musc Denies abnormal gait, Denies myalgias, Denies arthralgias, Denies numbness and Reports tingling Skin/Breast Denies rash, Denies unusual bruising and Denies wounds Neuro Denies abnormal gait, Denies dizziness, Denies headache(s), Denies memory loss, Denies numbness, Denies Sensory deficit (Neuro), Reports tingling and Denies weakness Psych Denies anxiety, Denies depression and Denies memory loss Endo Denies cold intolerance, Denies fatigue, Denies heat intolerance, Denies polydipsia and Denies polyuria Jaden/Lymph Denies easy bleeding and Denies easy bruising Aller/Immun Denies wheezing Physical exam (Primary Care) Vital Signs: Last Vital Signs Temp 97.9 F 06/05/24 10:26 Pulse 80 06/05/24 10:26 Resp 14 06/05/24 10:26 BP 128/72 06/05/24 10:26 Pulse Ox 95 06/05/24 10:26 Oxygen Delivery Method Room Air 06/05/24 10:26 BMI result Body Mass Index 34.2 Tobacco/Smoking Status: Tobacco use Status Tobacco use date assessed 06/05/24 06/05/24 10:29 Patient Tobacco Use Status Current everyday Tobacco 06/05/24 10:21 e-Cigarette/Vaping Use Never Used 06/05/24 10:21 PHQ-9: PHQ-9 Score PHQ-9: Total score 1 06/05/24 15:53 Depression Screening Interpretation: Negative Thrive Assessment: Date of Thrive Assessment Date Thrive assessed 04/04/24 06/05/24 11:38 Currently or been in a relationship where the following occur: I choose not to answer Const Other: General: no acute distress, well developed, alert and awake Nutritional Appearance: well nourished Orientation/consciousness: patient oriented x3 HENMT Head: Yes normocephalic and Yes atraumatic Ears: hearing grossly normal bilaterally and TM's normal bilaterally General nose exam: Normal external nose present and Normal nares present Mouth: Normal oral and palatal mucosa present and moist mucous membranes Teeth and gingiva: Full upper denture, no teeth to lower gum Throat: Yes oropharynx normal Eyes Pupils: Equal, round and reactive pupils present and Pupil accommodation reflex normal EOM: EOMs intact bilaterally Neck Neck: Yes normal visual inspection, Yes no lymphadenopathy and Yes trachea midline Thyroid: Thyroid normal Carotids: no bruits Lymphatic: no lymphadenopathy noted Chest Chest palpation & inspection: normal inspection of the chest Resp Effort & Inspection: normal respiratory effort Auscultation: clear to auscultation bilaterally Cardio Rate: regular rate Rhythm: regular rhythm Heart sounds: S1 normal heart sound present, S2 normal heart sound present, no gallops, no murmurs and no rubs Bruits: no abdominal aortic bruits and no carotid bruits GI Palpation (GI): No Abdominal aortic bruit present, Soft to palpation, nontender, No hepatosplenomegaly present and No Rebound tenderness present Auscultation: normal bowel sounds General: Yes no CVA tenderness Back/Spine/Pelvis Back: no CVA tenderness Cervical Spine: cervical ROM normal and No Cervical spine tenderness Thoracic/Lumbar Spine: thoraco-lumbar ROM normal, No pain with thoraco-lumbar ROM, No thoracic spinal tenderness and No lumbar spinal tenderness Skin General: warm and dry. Normal skin color. Normal skin turgor Lesions: no lesions Rashes: no rashes Trauma: no lacerations or abrasions Wounds: no wounds Nails: normal Neuro General: patient oriented x3, gait normal and CN's II-XI intact bilaterally Cranial nerves: Yes Equal, round and reactive pupils present Cognition (Neuro): normal cognition Gait exam (Neuro): Normal gait present Motor exam (neuro): 5/5 motor strength present throughout Sensory Exam: No Sensory deficit (Neuro) Deep tendon reflexes (DTR's): Right patellar reflex intensity grade: 2+ and Left patellar reflex intensity grade: 2+ Extrem General: Yes normal to inspection, No edema and No calf tenderness Psych Appearance: grossly normal Affect: normal affect Attitude: cooperative Thought process: Normal thought process present Coding Level of Care Code Est Pt Level 3 (78358) Est Pt Prev Care >65y(51189) Diagnoses Normal physical examination, routine Z00.00 Primary hypertension I10 Hypertension type: primary hypertension Smoking 1/2 pack a day or less F17.210 Obesity (BMI 30.0-34.9) E66.9 Tingling of both feet R20.2 Additional Codes JOSE-7 Assessment Billing - JOSE-7 Assessment Tool: JOSE-7 Assessment 23797 ([id number]) Assessment & Plan Assessment & Plan (1) Normal physical examination, routine: Code(s): Z00.00 - Encounter for general adult medical examination without abnormal findings Category: Medical Plan: Normal physical exam except for positive tandem gait; slightly unsteady gait. Continue current treatment regimen. Follow-up with specialists as planned. Verbalized understanding and agreed with treatment plan. (2) Hypertension: Code(s): I10 - Essential (primary) hypertension Category: Medical Qualifiers: Hypertension type: primary hypertension Qualified Code(s): I10 - Essential (primary) hypertension Plan: Blood pressure is 128/72, within goal of less than 130/80. Continue current treatment regimen. Follow-up in 3 months for hypertension. Return sooner with symptoms or concerns. Verbalized understanding and agreed with treatment plan. (3) Smoking 1/2 pack a day or less: Code(s): F17.210 - Nicotine dependence, cigarettes, uncomplicated Category: Social Hx Plan: She smokes 3-4 cigarettes daily and has 50 years history of on/off smoking with maximum cigarettes of 2ppd. She has been cutting down with intention to quit smoking. Instructed on the health risks and complications of smoking cigarettes and cessation encouraged. Declines medication treatment for smoking cessation due to itching with nicotine patch and not been able to chew nicotine gum due to dentures. Advised to follow-up as needed. Verbalized understanding and agreed with the plan. (4) Obesity (BMI 30.0-34.9): Code(s): E66.9 - Obesity, unspecified Category: Medical Plan: She currently weighs 199 lb, BMI is 34.2. She has been eating healthy and exercising routinely. She is followed by [facility] religion department chair. Encouraged to continue current treatment regimen. Verbalized understanding and agreed with the plan. (5) Tingling of both feet: Code(s): R20.2 - Paresthesia of skin Category: Medical Plan: Reports constant tingling to both feet for the past 4 weeks. Neuropathy is likely. Will check vitamin B12 and folate levels and make changes as needed. Orders: Orders Parathyroid Hormone Intact 06/05/24 R79.89 - Other specified abnormal findings of blood chemistry Vitamin B12 and Folate Today R20.2 - Paresthesia of skin
[2024-06-05 10:26] VITALS: BP 128/72; PULSE 80; RESP 14; TEMP 36.6; O2SAT 95; BMI 34.2
--- OUTSIDE RECORDS SUMMARY | 2024-06-05 11:42 | XMS_ITS | Encounter Summary ---
Author Organization [facility] Address [address] [facility] [address] [place] [address] Phone Care Team Providers Care Cytology Manager Name Role Phone Terese Silvestre CNP Primary Care Provider [phone] Reason for Visit * Reason Comments Med Refill Encounter Details Date Type Department Care Team (Late st Contact Info) Description 09/16/2020 Refill [facility] [address] [place] [address] Pedro Lee MD [address] [address] Social History Tobacco Use Types [...] Office Visit [facility] [address] [place] [address] Pedro Lee MD [address] [facility] [address] [place] [address] documented as of this encounter Visit Diagnoses Not on filedocumented in this encounter Care Teams Cytology Manager Relationship Specialty Start Date End Date Terese Silvestre CNP [address] [place] [address] PCP - General 03/16/22 documented as of this encounter
--- OUTSIDE RECORDS SUMMARY | 2024-06-05 11:42 | XMS_ITS | Clinical Summary ---
Author Organization [facility] Facility Address [address] [place] [address] Care Team Providers Care Field Agronomist Name Role Phone Terese Silvestre SUSHMA Primary Care Provider [phone] Allergies Active Allergy Reactions Criticality Noted Date [...] Office Visit [facility] [address] [phone] Pedro Lee MD Chronic kidney disease stage [...] Office Visit [facility] [address] [phone] Pedro Lee MD [address] [address] Health Maintenance Due Date Last Done Comments Breast Cancer Screening 1955 Pneumococcal Vaccine: 65+ Ye ars (1 of 2 - PCV) 1962 Colorectal Cancer Screening: Annual FOBT 2005 Colorectal Cancer Screening: Colonoscopy 2005 Colorectal Cancer Screening: Sigmoidoscopy 2005 Influenza Vaccine (Season Ended) 2024 Hepatitis B Vaccine Aged Out No longe r eligible based on patient's age to complete this topic Insurance * Guarantor: Bev Cooney Account Type Relation to Patient Date of Phone Billing Address Personal/Family Self [address] ([id number]) ([id number]) Care Teams Field Agronomist Relationship Specialty Start Date End Date Terese Silvestre CNP [address] [place] [address] PCP - General 03/16/22
== END 2024-06-05 11:12 | disposition home or self-care (01) ==
LOC: HO.HMCFM 10:04
PROVIDERS: PCP Nurse Practitioner Family; Visit Provider Nurse Practitioner Family
DX: Z00.00 Encounter for general adult medical examination without abnormal findings (principal); I10 Essential (primary) hypertension; E66.9 Obesity, unspecified; Z68.34 Body mass index [BMI] 34.0-34.9, adult; F17.210 Nicotine dependence, cigarettes, uncomplicated; R20.2 Paresthesia of skin

== ENCOUNTER → 2024-06-05 10:04 | Outpatient (BNVA) | payer OTHER, SELFPAY | PROVIDERS: PCP Nurse Practitioner Family; Visit Provider Nurse Practitioner Family ==

== ENCOUNTER 2024-06-05 11:18 | Outpatient (REF) | payer OTHER, SELFPAY ==
--- OUTSIDE RECORDS SUMMARY | 2024-06-05 13:52 | XMS_ITS | Clinical Summary ---
Author Organization [facility] Facility Address [address] [place] [address] Care Team Providers Care Special Delivery Mail Carrier Name Role Phone Terese Silvestre SUSHMA Primary Care Provider [phone] Allergies Active Allergy Reactions Criticality Noted Date [...] Office Visit [facility] [address] [phone] Pedro Lee MD Chronic kidney disease stage [...] Office Visit [facility] [address] [phone] Pedro Lee MD [address] [address] Health Maintenance Due Date Last Done Comments [...] Phone Billing Address Personal/Family Self [address] ([id number]) ([id number]) Care Teams Special Delivery Mail Carrier Relationship Specialty Start Date End Date Terese Silvestre CNP [address] [place] [address] PCP - General 03/16/22
--- OUTSIDE RECORDS SUMMARY | 2024-06-05 13:52 | XMS_ITS | Encounter Summary ---
Author Organization [facility] Address [address] [facility] [address] [place] [address] Phone Care Team Providers Care Service Desk Associate Name Role Phone Terese Silvestre CNP Primary Care Provider [phone] Reason for Visit * Reason Comments Med Refill Encounter Details Date Type Department Care Team (Late st Contact Info) Description 09/16/2020 Refill [facility] [address] [place] [address] Pedro Lee MD [address] [address] Social History Tobacco Use Types [...] Office Visit [facility] [address] [place] [address] Pedro Lee MD [address] [facility] [address] [place] [address] documented as of this encounter Visit Diagnoses Not on filedocumented in this encounter Care Teams Service Desk Associate Relationship Specialty Start Date End Date Terese Silvestre CNP [address] [place] [address] PCP - General 03/16/22 documented as of this encounter
[2024-06-05 14:26] LABS: Calcium 9.4 mg/dL (8.4-10.2)
== END 2024-06-05 11:19 | disposition home or self-care (01) ==
LOC: HO.WFDLDS 11:18
PROVIDERS: Referring Provider Internal Medicine Endocrinology, Diabetes & Metabolism; Visit Provider Nurse Practitioner Family
DX: Z00.00 Encounter for general adult medical examination without abnormal findings (principal); I10 Essential (primary) hypertension; E66.9 Obesity, unspecified; Z68.34 Body mass index [BMI] 34.0-34.9, adult; R20.2 Paresthesia of skin; R79.89 Other specified abnormal findings of blood chemistry; M81.0 Age-related osteoporosis without current pathological fracture; E78.5 Hyperlipidemia, unspecified; G47.33 Obstructive sleep apnea (adult) (pediatric); I69.320 Aphasia following cerebral infarction; F41.9 Anxiety disorder, unspecified; F31.9 Bipolar disorder, unspecified; F17.210 Nicotine dependence, cigarettes, uncomplicated
CPT/HCPCS: 36415; 82310; 83970; 96127; 99212; 99397

== ENCOUNTER 2024-07-05 12:15 | Outpatient (AMB) | payer OTHER, SELFPAY ==
--- NOTE | 2024-07-05 12:35 | A.OFFVIS_ITS ---
VS Expanded 07/05/24 12:36 Height 5 ft 4 in Weight 201 lb 0.985 oz BMI 34.5 Intake Visit Reasons: abnormal wt gain Allergies acetaminophen [Vicodin] Allergy (Unknown, Verified 06/05/24 10:36) tongue swells, hives on bottom of feet adhesive tape [Adhesive Tape] Allergy (Unknown, Verified 06/05/24 10:36) Rash hydrocodone [Vicodin] Allergy (Unknown, Verified 06/05/24 10:36) tongue swells, hives on bottom of feet latex [Latex] Allergy (Unknown, Verified 06/05/24 10:36) Rash, red blisters penicillin V Allergy (Unknown, Verified 06/05/24 10:36) hives, rash Penicillins Allergy (Unknown, Verified 06/05/24 10:36) Rash, Nausea and Vomiting Sulfa (Sulfonamide Antibiotics) Allergy (Unknown, Verified 06/05/24 10:36) Hives, rash amphetamine [Adderall] Adverse Reaction (Unknown, Verified 06/05/24 10:36) diarrhea dextroamphetamine [Adderall] Adverse Reaction (Unknown, Verified 06/05/24 10:36) diarrhea morphine [MORPHINE] Adverse Reaction (Unknown, Verified 06/05/24 10:36) Nausea and Vomiting phenobarbital [Phenobarbital] Adverse Reaction (Unknown, Verified 06/05/24 10:36) extreme hyperactivity meperidine [From Demerol] Adverse Reaction (Verified 06/05/24 10:36) Vomiting Nutrition Presentation Details: Pt presents for MNT f/u for obesity Pt participating from mom's meal from [facility] Pt brought food record to discuss walking 2 miles daily BS Monitoring Most Recent Diabetes Results: Microalb/Creat Ratio 39.1 ug/mg cr (<30) H 04/30/24 Cholesterol 142 mg/dL (<200) 05/28/24 HDL Cholesterol 46 mg/dL (>40) 05/28/24 Triglycerides 106 mg/dL (<150) 05/28/24 Creatinine 0.90 mg/dL (0.5-1.4) 04/30/24 Blood Urea Nitrogen 16 mg/dL (9-16) 04/30/24 Sodium 146 mmol/L (135-145) H 04/30/24 Potassium 4.0 mmol/L (3.3-5.1) 04/30/24 Chloride 111 mmol/L (96-108) H 04/30/24 Carbon Dioxide 26 mmol/L (22-29) 04/30/24 Calcium 9.4 mg/dL (8.4-10.2) 06/05/24 Albumin 4.1 g/dL (3.5-5.0) 04/30/24 [facility]LY [facility] Medical History FH: cholecystectomy Hypersomnia Snoring Expressive aphasia Dysgraphia Stroke Multiple allergies Cholelithiasis Overactive bladder Recurrent urinary tract infection History of CVA with residual deficit Expressive aphasia History of CVA (cerebrovascular accident) Refused influenza vaccine COVID-19 vaccination declined Impaired fasting glucose Dyslipidemia Osteoporosis Psoriasis Gestational diabetes Hx of uterine prolapse Osteoarthritis of knees, bilateral Bipolar 1 disorder CKD (chronic kidney disease) stage 2, GFR 60-89 ml/min Essential hypertension Rectocele Urge incontinence Elevated blood pressure reading in office with diagnosis of hypertension Hypotonic bladder Urinary tract infection Dyspareunia in female Surgical History History of partial mastectomy of left breast History of bilateral oophorectomy H/O mastectomy Hx of cholecystectomy History of total left knee replacement (TKR) History of total right knee replacement (TKR) History of Maloney urethropexy Hx of total vaginal hysterectomy H/O rectocele repair Family History Father Diabetes mellitus CHF (congestive heart failure) Mother FH: stomach cancer Crohn disease Son Mental health disorder Social History (Updated 06/05/24 @ 10:21 by Azra Hebert MA) Household Members: Children Housing: Apartment Do you presently have visiting nurse or other home services: Yes Alcohol intake: never Patient Tobacco Use Status: Current everyday Tobacco user Cigarette Packs Per Day: 0.1 Cigarettes Per Day: 6 Years Smoked: 40 e-Cigarette/Vaping Use: Never Used Second Hand Smoke Exposure: No service: No Current occupational status: disabled Sexual orientation: Straight/Heterosexual Gender identity: Female Cognitive needs: No Hearing needs: No Vision needs: No Assessment & Plan Assessment & Plan (1) Abnormal weight gain: Code(s): R63.5 - Abnormal weight gain Category: Medical Plan: Wt: 93Kg ( 03/24 ), 92kg (04/24), 89.5 kg(05/22), 91 kg (07/22) Est kcal needs as per MSJ: 1700 (40% carb, 30% protein/fat) Est fluid needs as per 25-30 ml/d: 2700 Est prot per day as per 1 g/kg bw: 90 Recommend fiber intake : 8-10 g per day and gradually increase to 25-28 g per day for women and 35-38 g for men or as tolerated Recommend sodium intake per day : less than 2300 mg Educated patient on: ( R = reviewed V = verbalizes understanding N/R = needs review N/A = not applicable * Food sources of carbohydrate, adequate serving sizes and its role in various health conditions: R * Differences between complex carbohydrates a simple carbohydrates, role of fiber in diet: R * Lean protein sources of foods: R * Differences between types of fats and role in diet (mono on saturated fat fatty acids, saturated fatty acids, trans fats): R * Food sources of sodium in salt and healthy modifications for heart health in kidney health: R * Vitamins and minerals: R V N/R * Healthy plate method concept: R * Physical activity: Benefits a precaution: R Patient Instructions: Reduce on amount of fat (fried foods/butter/oils/breaded food items/cheese/high fat meats/processed meats) Coding Level of Care Code Nutr Indiv Subseq (97114) Diagnoses Abnormal weight gain R63.5 Time Spent (min) 25
[2024-07-05 12:36] VITALS: BMI 34.5
--- OUTSIDE RECORDS SUMMARY | 2024-07-05 13:36 | XMS_ITS | Clinical Summary ---
Author Organization [facility] Facility Address [address] [place] [address] Care Team Providers Care Fermentologist Name Role Phone Terese Silvestre SUSHMA Primary Care Provider [phone] Allergies Active Allergy Reactions Criticality Noted Date [...] 07/07/2020 Hypertensive renal disease 07/07/2020 Proteinuria 07/07/2020 Family History Medical History Relation Comments Diabetes [...] Visit [facility] [address]. [address] [place] [address] Pedro Lee MD [address] [phone] Health Maintenance Due Date Last Done Comments Breast Cancer Screening 1955 Pneumococcal Vaccine: 50+ Ye ars (1 of 2 - PCV) 10/30/1975 Colorectal Cancer Screening: Annual FOBT 2005 Colorectal Cancer Screening: Colonoscopy 2005 Colorectal Cancer Screening: Sigmoidoscopy 2005 Influenza Vaccine (Season Ended) 2024 Hepatitis B Vaccine Aged Out No longe r eligible based on patient's age to complete this topic Insurance [facility] ([id number]) [facility] ([id number]) Care Teams Fermentologist Relationship Specialty Start Date End Date Terese Silvestre CNP [address] [place] [address] PCP - General 03/16/22
--- OUTSIDE RECORDS SUMMARY | 2024-07-05 13:36 | XMS_ITS | Encounter Summary ---
Author Organization [facility] Address [address] [facility] [address] [place] [address] Phone Care Team Providers Care Cordwood Cutter Helper Name Role Phone Terese Silvestre CNP Primary Care Provider [phone] Reason for Visit * Reason Comments Med Refill Encounter Details Date Type Department Care Team (Late st Contact Info) Description 09/16/2020 Refill [facility] [address] [place] [address] Pedro Lee MD [address] [phone] Social History Tobacco Use Types [...] Office Visit [facility] [address] [place] [address] Pedro Lee MD [address] [facility] [address] [place] [address] documented as of this encounter Visit Diagnoses Not on filedocumented in this encounter Care Teams Cordwood Cutter Helper Relationship Specialty Start Date End Date Terese Silvestre CNP [address] [place] [address] PCP - General 03/16/22 documented as of this encounter
== END 2024-07-05 13:07 | disposition home or self-care (01) ==
LOC: HO.ENCR 12:16
PROVIDERS: PCP Nurse Practitioner Family; Visit Provider Dietitian, Registered
DX: R63.5 Abnormal weight gain (principal)

== ENCOUNTER → 2024-07-05 12:15 | Outpatient (BNVA) | payer OTHER, SELFPAY | PROVIDERS: PCP Nurse Practitioner Family; Visit Provider Dietitian, Registered | DX: E66.9 Obesity, unspecified (principal); Z71.3 Dietary counseling and surveillance; Z68.34 Body mass index [BMI] 34.0-34.9, adult | CPT/HCPCS: 97803 ==

== ENCOUNTER 2024-07-24 14:31 | Outpatient (AMB) | payer OTHER, SELFPAY ==
--- OUTSIDE RECORDS SUMMARY | 2024-07-24 14:34 | XMS_ITS | Clinical Summary ---
Author Organization [facility] Facility Address [address] [place] [address] Care Team Providers Care Customer Advisor Name Role Phone Terese Silvestre SUSHMA Primary Care Provider [phone] Allergies Active Allergy Reactions Criticality Noted Date [...] Visit [facility] [address] [place] [address] Pedro Lee MD [address] [phone] Health Maintenance Due Date Last Done Comments Breast Cancer Screening 1955 Pneumococcal Vaccine: 50+ Ye ars (1 of 2 - PCV) 10/30/1975 Colorectal Cancer Screening: Annual FOBT 2005 Colorectal Cancer Screening: Colonoscopy 2005 Colorectal Cancer Screening: Sigmoidoscopy 2005 Influenza Vaccine (Season Ended) 2024 Hepatitis B Vaccine Aged Out No longe r eligible based on patient's age to complete this topic Insurance [facility] ([id number]) [facility] ([id number]) Care Teams Customer Advisor Relationship Specialty Start Date End Date Terese Silvestre CNP [address] [place] [id number] PCP - General 03/16/22
--- NOTE | 2024-07-24 14:38 | A.OFFVIS_ITS ---
Intake Visit Reasons: 3M follow up/ pVR Intake Note: Patient presents today for follow up Recurrent UTI Urology Medications: Methenamine, Vitamin C, Estradiol Cream, Tolterodine Blood Thinner: Aspirin PVR: 235ml's Cage Maker Machine Required: No Accompanied by: Self / Same As Patient Allergies acetaminophen [Vicodin] Allergy (Unknown, Verified 07/24/24 15:30) tongue swells, hives on bottom of feet adhesive tape [Adhesive Tape] Allergy (Unknown, Verified 07/24/24 15:30) Rash hydrocodone [Vicodin] Allergy (Unknown, Verified 07/24/24 15:30) tongue swells, hives on bottom of feet latex [Latex] Allergy (Unknown, Verified 07/24/24 15:30) Rash, red blisters penicillin V Allergy (Unknown, Verified 07/24/24 15:30) hives, rash Penicillins Allergy (Unknown, Verified 07/24/24 15:30) Rash, Nausea and Vomiting Sulfa (Sulfonamide Antibiotics) Allergy (Unknown, Verified 07/24/24 15:30) Hives, rash amphetamine [Adderall] Adverse Reaction (Unknown, Verified 07/24/24 15:30) diarrhea dextroamphetamine [Adderall] Adverse Reaction (Unknown, Verified 07/24/24 15:30) diarrhea morphine [MORPHINE] Adverse Reaction (Unknown, Verified 07/24/24 15:30) Nausea and Vomiting phenobarbital [Phenobarbital] Adverse Reaction (Unknown, Verified 07/24/24 15:30) extreme hyperactivity meperidine [From Demerol] Adverse Reaction (Verified 07/24/24 15:30) Vomiting Medication List - Last Reconciled 07/24/24 by GENEVA Redding amlodipine 5 mg PO DAILY ascorbic acid (vitamin C) 1,000 mg PO DAILY 90 days aspirin 81 mg PO DAILY 90 days atorvastatin 80 mg PO BEDTIME 30 days cholecalciferol (vitamin D3) (Vitamin D3) 25 mcg PO DAILY lisinopril 20 mg PO DAILY 90 days methenamine hippurate 1 g PO daily 90 days metoprolol succinate ER 100 mg PO DAILY 90 days quetiapine ER 100 mg (2 x 50 mg) PO BEDTIME 30 days tolterodine ER 4 mg PO DAILY 90 days zolpidem 10 mg PO BEDTIME HPI Comments Details: Bev is a pleasant 68 year-old female patient of Dr. Silvestre. She has a past medical history of bipolar, CKD stage 2, dyslipidemia, hypertension, history of CVA with expressive aphasia, osteoarthritis, recurrent urinary tract infections, and overactive bladder. She presents to the office today for follow- up regarding her frequent urinary tract infections, overactive bladder and incomplete bladder emptying. In discussion with the patient today she reports noting intermittent episodes of right-sided flank pain over the last 2 weeks. She reports no bothersome lower urinary tract symptoms. She reports compliance with Estrace cream, methenamine, vitamin-C, and tolterodine as prescribed. She denies any UTI like symptoms. In office urinalysis results reviewed with the patient today. Initial PVR 235mL however patient was able to double void PVR 0 mL. She denies urinary urgency, urinary frequency, incontinence, nocturia, hematuria, dysuria, changes to urinary stream, fever, and or chills. She is happy with her current voiding parameters. Patient with a previous history of following up with Infectious Disease due to ongoing E coli with resistance and colonization. She discusses being very active and walks approximately 2-1/2-3 miles per day. We discussed obtaining retroperitoneal ultrasound for further assessment evaluation as well as worsening symptoms. All questions were answered. She otherwise offers other issues or concerns at this time. [facility] Medical History FH: cholecystectomy Hypersomnia Snoring Expressive aphasia Dysgraphia Stroke Multiple allergies Cholelithiasis Overactive bladder Recurrent urinary tract infection History of CVA with residual deficit Expressive aphasia History of CVA (cerebrovascular accident) Refused influenza vaccine COVID-19 vaccination declined Impaired fasting glucose Dyslipidemia Osteoporosis Psoriasis Gestational diabetes Hx of uterine prolapse Osteoarthritis of knees, bilateral Bipolar 1 disorder CKD (chronic kidney disease) stage 2, GFR 60-89 ml/min Essential hypertension Rectocele Urge incontinence Elevated blood pressure reading in office with diagnosis of hypertension Hypotonic bladder Urinary tract infection Dyspareunia in female Surgical History History of partial mastectomy of left breast History of bilateral oophorectomy H/O mastectomy Hx of cholecystectomy History of total left knee replacement (TKR) History of total right knee replacement (TKR) History of Maloney urethropexy Hx of total vaginal hysterectomy H/O rectocele repair Family History Father Diabetes mellitus CHF (congestive heart failure) Mother FH: stomach cancer Crohn disease Son Mental health disorder Social History Household Members: Children Housing: Apartment Do you presently have visiting nurse or other home services: Yes Alcohol intake: never Patient Tobacco Use Status: Current everyday Tobacco user Cigarette Packs Per Day: 0.1 Cigarettes Per Day: 6 Years Smoked: 40 e-Cigarette/Vaping Use: Never Used Second Hand Smoke Exposure: No service: No Current occupational status: disabled Sexual orientation: Straight/Heterosexual Gender identity: Female Cognitive needs: No Hearing needs: No Vision needs: No Review of Systems Const Reports as per HPI Eyes Reports no additional complaints ENT Reports no additional complaints Card Reports no additional complaints Resp Reports no additional complaints GI Details: Reports as per HPI Reports as per HPI Musc Reports no additional complaints Skin/Breast Reports as per HPI Neuro Reports as per HPI Endo Reports no additional complaints Physical Exam Const General: cooperative, healthy appearing, comfortable, no acute distress, well developed, alert and awake Orientation/consciousness: patient oriented x3 Limitations: other limitations (Expressive aphasia) HEENT Head: Yes normal to inspection, Yes normocephalic and Yes atraumatic Ears: hearing grossly normal bilaterally Eyes General: appearance normal, both eyes and all related structures Neck Neck: Yes normal visual inspection and Yes trachea midline Chest Other: left sided chest dressing; clean dry and intact Resp Effort & Inspection: normal respiratory effort and able to speak in complete sentences Cardio Rate: regular rate GI Inspection: Yes normal to inspection General: Yes no CVA tenderness Back/Spine/Pelvis Back: no CVA tenderness Skin General skin exam: no rashes or lesions noted Neuro General: patient oriented x3 Extrem General: Yes normal to inspection Psych Appearance: grossly normal and well kempt Mental Status: mental status grossly normal Speech and movement: Normal speech and movement present and Clear speech present Affect: normal affect Attitude: cooperative Thought process: Normal thought process present Thought content: Normal thought content present Insight: Fair insight present (Psych) Judgement: Fair judgement present (Psych) Office Procedures Post Void Residual Post Residual Void Post Void Residual (PVR): 235 [id number] Void Residual by ultrasound Results AMB Urinalysis, Automated UA Leukoctes 0 Emiliano/uL Last Edit by [place] Command[employer] Romeo on 07/24/24 15:00 UA Nitrite Last Edit by [email or web address] on 07/24/24 15:00 UA Urobilinogen 0.2 mg/dL Last Edit by [email or web address]-[email or web address] on 07/24/24 15:00 UA Protein 0 mg/dL Last Edit by [employer] on 07/24/24 15:00 UA pH 7.0 Last Edit by e-[email or web address] on 07/24/24 15:00 UA Blood 0 Maximiliano/uL Last Edit by [email or web address]-[email or web address] on 07/24/24 15:00 UA Specific [place] 1.005 Last Edit by [email or web address] on 07/24/24 15:00 UA Ketone Last Edit by [employer] on 07/24/24 15:00 UA Bilirubin 0 mg/dL Last Edit by [employer] on 07/24/24 15:00 UA Glucose 0 mg/dL Last Edit by [email or web address] on 07/24/24 15:00 Results Reviewed Results Reviewed: Laboratory Last Values Urine pH (Auto) 7.0 07/24/24 14:59 Specific [place] (Auto) 1.005 07/24/24 14:59 Urine Protein (Auto) 0 mg/dL 07/24/24 14:59 Glucose (UA)(Auto) 0 mg/dL 07/24/24 14:59 Urine Blood (Auto) 0 Maximiliano/uL 07/24/24 14:59 Urine Bilirubin (Auto) 0 mg/dL 07/24/24 14:59 Urine Urobilinogen (Auto) 0.2 mg/dL 07/24/24 14:59 Leukocyte Esterase (Auto) 0 Emiliano/uL 07/24/24 14:59 Assessment & Plan Assessment & Plan (1) Right flank pain: Code(s): R10.9 - Unspecified abdominal pain Category: Medical (2) Incomplete bladder emptying: Code(s): R33.9 - Retention of urine, unspecified Category: Medical (3) UTI due to extended-spectrum beta lactamase (ESBL) producing Escherichia coli: Code(s): N39.0 - Urinary tract infection, site not specified; B96.29 - Other Escherichia coli [E. coli] as the cause of diseases classified elsewhere; Z16.12 - Extended spectrum beta lactamase (ESBL) resistance Category: Medical (4) Complicated urinary tract infection: Code(s): N39.0 - Urinary tract infection, site not specified Category: Medical (5) Overactive bladder: Code(s): N32.81 - Overactive bladder Category: Medical (6) Recurrent urinary tract infection: Code(s): N39.0 - Urinary tract infection, site not specified Category: Medical Plan In office urinalysis results reviewed with the patient today; as noted above. Initial PVR 235 mL however patient was able to double void PVR 0 mL; We discussed potential causes for right-sided flank pain patient is experiencing as well as further treatment options and risks and benefits of these treatment options. Will obtain renal ultrasound for further assessment evaluation. She currently denies any bothersome urinary issues. She reports be happy with current voiding parameters. We discussed worsening symptoms. Follow-up in 1-3 months with imaging to be completed prior; or sooner with any issues, concerns, and or questions. Orders: Orders AMB Post Void Residual by ultrasound Today R35.0 - Frequency of micturition US retroperitoneal comp Today R10.9 - Unspecified abdominal pain, R33.9 - Retention of urine, unspecified AMB Urinalysis Automated Today Z13.9 - Encounter for screening, unspecified Patient Instructions: The patient had an opportunity to ask questions regarding the treatment plan. All questions were answered. Physical exam, labs, and imaging were discussed and reviewed in detail. As well as risks, benefits, and discussion of treatment choices. No major barriers to understanding were identified. The patient expressed understanding and agreement with the above treatment plan. The patient was made aware they should contact our office by phone for worsening of their current condition, the appearance of new symptoms, or with any questions or concerns. Compliance is encouraged with any medications and follow up testing that is ordered. It is a privilege to be allowed the opportunity to participate in? your urological care.? Again, if you have any questions or concerns If you have any questions or concerns please do not hesitate to contact me. The office is [phone]. This note is constructed using voice recognition software. While every effort has been made to ensure accuracy system support developer errors may have been included. Yours sincerely, GENEVA Redding Coding Level of Care Code Est Pt Level 3 (00430) Complex EM visit Add On G2211 Diagnoses Right flank pain R10.9 Incomplete bladder emptying R33.9 UTI due to extended-spectrum beta lactamase (ESBL) producing Escherichia coli N39.0; B96.29; Z16.12 Complicated urinary tract infection N39.0 Overactive bladder N32.81 Recurrent urinary tract infection N39.0 CPT Codes Post Residual Void - PVR CPT Code: 05085-Ulcx Void Residual by ultrasound ([id number])
== END 2024-07-24 15:25 | disposition home or self-care (01) ==
LOC: HO.HUSH 14:32
PROVIDERS: PCP Nurse Practitioner Family; Visit Provider Nurse Practitioner Family
DX: R10.9 Unspecified abdominal pain (principal); R33.9 Retention of urine, unspecified; N39.0 Urinary tract infection, site not specified; B96.29 Other Escherichia coli [E. coli] as the cause of diseases classified elsewhere; Z16.12 Extended spectrum beta lactamase (ESBL) resistance; N32.81 Overactive bladder; Z13.9 Encounter for screening, unspecified
CPT/HCPCS: 99213; G2211

== ENCOUNTER → 2024-07-24 14:31 | Outpatient (BNVA) | payer OTHER, SELFPAY | PROVIDERS: PCP Nurse Practitioner Family; Visit Provider Nurse Practitioner Family | DX: R33.9 Retention of urine, unspecified (principal); N39.0 Urinary tract infection, site not specified; N32.81 Overactive bladder; B96.29 Other Escherichia coli [E. coli] as the cause of diseases classified elsewhere; Z16.12 Extended spectrum beta lactamase (ESBL) resistance; R10.9 Unspecified abdominal pain | CPT/HCPCS: 51798; 81003; 99212 ==

== ENCOUNTER → 2024-07-31 10:00 | Outpatient (BNV) | payer OTHER, SELFPAY | PROVIDERS: PCP Nurse Practitioner Family; Visit Provider Internal Medicine | DX: Z12.31 Encounter for screening mammogram for malignant neoplasm of breast (principal) | CPT/HCPCS: 77063; 77067 ==

== ENCOUNTER 2024-07-31 10:02 | Outpatient (REF) | payer OTHER, SELFPAY ==
--- OUTSIDE RECORDS SUMMARY | 2024-07-31 11:30 | XMS_ITS | Clinical Summary ---
Author Organization [facility] Facility Address [address] [place] [address] Care Team Providers Care Assembler Latches And Springs Name Role Phone Terese Silvestre SUSHMA Primary Care Provider [phone] Allergies Active Allergy Reactions Criticality Noted Date [...] Visit [facility] [address]. [address] [place] [address] Pedro Lee MD [address] [phone] Health Maintenance Due Date Last Done Comments Breast Cancer Screening 1955 Pneumococcal Vaccine: 50+ Ye ars (1 of 2 - PCV) 10/30/1975 Colorectal Cancer Screening: Annual FOBT 2005 Colorectal Cancer Screening: Colonoscopy 2005 Colorectal Cancer Screening: Sigmoidoscopy 2005 Influenza Vaccine (Season Ended) 2024 Hepatitis B Vaccine Aged Out No longe r eligible based on patient's age to complete this topic Insurance [facility] ([id number]) [facility] ([id number]) Care Teams Assembler Latches And Springs Relationship Specialty Start Date End Date Terese Silvestre CNP [address] [place] [address] PCP - General 03/16/22
== END 2024-07-31 10:03 | disposition home or self-care (01) ==
LOC: HO.MAMMO 10:02
PROVIDERS: PCP Nurse Practitioner Family
DX: Z12.31 Encounter for screening mammogram for malignant neoplasm of breast (principal)
CPT/HCPCS: 77063; 77067

== ENCOUNTER 2024-08-24 14:01 | Outpatient (REF) | payer OTHER, SELFPAY ==
--- NOTE | ~2024-08-24 | US_ITS ---
CLINICAL HISTORY: R10.9 - RIGHT FLANK PAIN US kidneys and bladder Comparison: None provided Findings: Right kidney 12.0 cm length. 2 mm upper and midpole nonobstructing stones. 1.2 cm lower pole cyst. Left kidney 9.5 cm length. No significant focal abnormality. No bilateral hydronephrosis. Normal bilateral renal echogenicity. The urinary bladder is unremarkable. Prevoid volume 364 mL. Post void volume 95 mL. Bilateral ureteral jets visualized. Impression: Nonobstructing right renal stones Nonspecific discrepancy in renal size Postvoid residual 95 mL This document has been electronically signed by: Bandar Miller MD on 08/25/2024 20:50:49
--- OUTSIDE RECORDS SUMMARY | 2024-08-24 14:30 | XMS_ITS | Clinical Summary ---
Author Organization [facility] Facility Address [address] [place] [address] Care Team Providers Care Preparatory Technician Name Role Phone Terese Silvestre SUSHMA Primary Care Provider [phone] Allergies Active Allergy Reactions Criticality Noted Date [...] Visit [facility] [address] [place] [address] Pedro Lee MD [address] [phone] Health Maintenance Due Date Last Done Comments Breast Cancer Screening 1955 Pneumococcal Vaccine: 50+ Ye ars (1 of 2 - PCV) 10/30/1975 Colorectal Cancer Screening: Annual FOBT 2005 Colorectal Cancer Screening: Colonoscopy 2005 Colorectal Cancer Screening: Sigmoidoscopy 2005 Influenza Vaccine (Season Ended) 2024 Hepatitis B Vaccine Aged Out No longe r eligible based on patient's age to complete this topic Insurance [facility] ([id number]) [facility] ([id number]) Care Teams Preparatory Technician Relationship Specialty Start Date End Date Terese Silvestre CNP [address] [place] [address] PCP - General 03/16/22
== END 2024-08-24 14:02 | disposition home or self-care (01) ==
LOC: HO.US 14:01
PROVIDERS: PCP Nurse Practitioner Family; Visit Provider Nurse Practitioner Family
DX: R10.9 Unspecified abdominal pain (principal); R33.9 Retention of urine, unspecified
CPT/HCPCS: 76770

== ENCOUNTER → 2024-08-24 14:03 | Outpatient (BNV) | payer OTHER, SELFPAY | PROVIDERS: PCP Nurse Practitioner Family; Visit Provider Radiology Diagnostic Radiology | DX: N20.0 Calculus of kidney (principal) | CPT/HCPCS: 76770 ==

== ENCOUNTER 2024-09-03 13:45 | Outpatient (REF) | payer OTHER, SELFPAY ==
--- OUTSIDE RECORDS SUMMARY | 2024-09-03 14:13 | XMS_ITS | Clinical Summary ---
Author Organization [facility] Facility Address [address] [place] [id number] Care Team Providers Care Webbing Inspector Name Role Phone Terese Silvestre SUSHMA Primary Care Provider [phone] Allergies Active Allergy Reactions Criticality Noted Date [...] Visit [facility] [address] [place] [address] Pedro Lee MD [address] [phone] Health Maintenance Due Date Last Done Comments Breast Cancer Screening 1955 Pneumococcal Vaccine: 50+ Ye ars (1 of 2 - PCV) 10/30/1975 Colorectal Cancer Screening: Annual FOBT 2005 Colorectal Cancer Screening: Colonoscopy 2005 Colorectal Cancer Screening: Sigmoidoscopy 2005 Influenza Vaccine (#1) 2024 Hepatitis B Vaccine Aged Out No longe r eligible based on patient's age to complete this topic Insurance [facility] ([id number]) [facility] ([id number]) Care Teams Webbing Inspector Relationship Specialty Start Date End Date Terese Silvestre CNP [address] [place] [id number] PCP - General 03/16/22
[2024-09-03 17:57] LABS: Calcium 9.5 mg/dL (8.4-10.2)
[2024-09-03 18:31] LABS: Parathyroid Hormone Intact 99.8 pg/mL (8.7-77.1)
[2024-09-03 18:37] LABS: Folate 15.8 ng/mL (> or = 4.0); Vitamin B12 644 pg/mL (200-900)
== END 2024-09-03 13:46 | disposition home or self-care (01) ==
LOC: HO.WFDLDS 13:45
PROVIDERS: Internal Medicine Endocrinology, Diabetes & Metabolism; Visit Provider Nurse Practitioner Family
DX: M81.0 Age-related osteoporosis without current pathological fracture (principal); R79.89 Other specified abnormal findings of blood chemistry; R20.2 Paresthesia of skin
CPT/HCPCS: 36415; 82310; 82607; 82746; 83970

== ENCOUNTER 2024-09-10 10:47 | Outpatient (AMB) | payer OTHER, SELFPAY ==
--- NOTE | 2024-09-10 10:50 | A.OFFPC_ITS ---
Vital Signs 09/10/24 10:56 09/10/24 11:12 Height 5 ft 4 in Weight 200 lb 8 oz BMI 34.4 BP 145/67 H 110/60 Blood Pressure Location Rt brachial Rt brachial Position Sitting Sitting Respiration 16 Pulse 82 Pulse Source Pulse Oximeter Temp 98.2 F Temp Source Oral Pulse Oximetry (%) 97 Oxygen Delivery Method Room Air Intake Visit Reasons: 3 mos HTN Intake Note: patient here for follow up on HTN Speed Belt Sander Required: No Is last menstrual period known: No Post menopausal: No Patient : No Allergies acetaminophen (Vicodin) Allergy (Unknown, Verified 09/10/24 11:05) tongue swells, hives on bottom of feet adhesive tape (Adhesive Tape) Allergy (Unknown, Verified 09/10/24 11:05) Rash hydrocodone (Vicodin) Allergy (Unknown, Verified 09/10/24 11:05) tongue swells, hives on bottom of feet latex (Latex) Allergy (Unknown, Verified 09/10/24 11:05) Rash, red blisters penicillin V Allergy (Unknown, Verified 09/10/24 11:05) hives, rash Penicillins Allergy (Unknown, Verified 09/10/24 11:05) Rash, Nausea and Vomiting Sulfa (Sulfonamide Antibiotics) Allergy (Unknown, Verified 09/10/24 11:05) Hives, rash amphetamine (Adderall) Adverse Reaction (Unknown, Verified 09/10/24 11:05) diarrhea dextroamphetamine (Adderall) Adverse Reaction (Unknown, Verified 09/10/24 11:05) diarrhea morphine (MORPHINE) Adverse Reaction (Unknown, Verified 09/10/24 11:05) Nausea and Vomiting phenobarbital (Phenobarbital) Adverse Reaction (Unknown, Verified 09/10/24 11:05) extreme hyperactivity meperidine (From Demerol) Adverse Reaction (Verified 09/10/24 11:05) Vomiting Medication List - Last Reconciled 09/10/24 by Terese Silvestre CNP amlodipine 5 mg PO DAILY ascorbic acid (vitamin C) 1,000 mg PO DAILY 90 days aspirin 81 mg PO DAILY 90 days atorvastatin 80 mg PO BEDTIME 90 days cholecalciferol (vitamin D3) (Vitamin D3) 25 mcg PO DAILY lisinopril 20 mg PO DAILY 90 days methenamine hippurate 1 g PO daily 90 days metoprolol succinate ER 100 mg PO DAILY 90 days quetiapine ER 100 mg (2 x 50 mg) PO BEDTIME 30 days sennosides (senna) 8.6 mg PO BEDTIME 90 days tolterodine ER 4 mg PO DAILY 90 days zolpidem 10 mg PO BEDTIME Tobacco use date assessed: 09/10/24 Fall risk assessment: No Falls in past year Last assessed Fall Risk: 09/10/24 Dental Screening Dental Screen Date: 09/10/24 Did you have a dental visit in the last 12 months?: No Did you have a dental problem in the last 6 months where you did not have access to dental care?: No Was dental information given to patient?: Yes HPI HPI Comments History of Present Illness Details 68-year-old [facility]. She admits to taking her medications as prescribed without adverse reactions. She notes that she has been making healthy lifestyle changes. She offers no complaints and denies acute symptoms at this time. [facility] Medical History FH: cholecystectomy Hypersomnia Snoring Expressive aphasia Dysgraphia Stroke Multiple allergies Cholelithiasis Overactive bladder Recurrent urinary tract infection History of CVA with residual deficit Expressive aphasia History of CVA (cerebrovascular accident) Refused influenza vaccine COVID-19 vaccination declined Impaired fasting glucose Dyslipidemia Osteoporosis Psoriasis Gestational diabetes Hx of uterine prolapse Osteoarthritis of knees, bilateral Bipolar 1 disorder CKD (chronic kidney disease) stage 2, GFR 60-89 ml/min Essential hypertension Rectocele Urge incontinence Elevated blood pressure reading in office with diagnosis of hypertension Hypotonic bladder Urinary tract infection Dyspareunia in female Surgical History History of partial mastectomy of left breast History of bilateral oophorectomy H/O mastectomy Hx of cholecystectomy History of total left knee replacement (TKR) History of total right knee replacement (TKR) History of Maloney urethropexy Hx of total vaginal hysterectomy H/O rectocele repair Family History Father Diabetes mellitus CHF (congestive heart failure) Mother FH: stomach cancer Crohn disease Son Mental health disorder Social History Household Members: Children Housing: Apartment Do you presently have visiting nurse or other home services: Yes Alcohol intake: never Patient Tobacco Use Status: Current everyday Tobacco user Cigarette Packs Per Day: 0.1 Cigarettes Per Day: 6 Years Smoked: 40 Packs Per Year: 4 Packs per year/per ci.00 e-Cigarette/Vaping Use: Never Used Second Hand Smoke Exposure: No Patient : No service: No Current occupational status: disabled Current occupational exposures/hazards: No Sexual orientation: Straight/Heterosexual Gender identity: Female Cognitive needs: No Hearing needs: No Vision needs: No Questionnaire Thrive Questionnaire Date Thrive assessed: 04/04/24 I am a: Patient What is your living situation today?: I have a steady place to live Within the past 12 months, did the food you bought not last and you didn't have the money to get more?: Sometimes True Within the past 12 months, did you worry whether your food would run out before you got money to buy more?: Sometimes True Do you have trouble paying for medicines?: No Do you have trouble getting transportation to medical appointments?: No Do you have trouble paying your heating and electricity bill?: No Do you have trouble taking care of your child, family member or friend?: No Do you have trouble with day-to-day activities such as bathing, preparing meals, shopping, managing finances, etc.?: No Are you currently unemployed and looking for a job?: No Are you interested in more education?: No Please select the resources that you would like help with: Food Currently or been in a relationship where the following occur: No concerns repor emily THRIVE Score: 2 JOSE-7 AMB Questionnaire JOSE-7 Date JOSE - 7 assessed: 06/05/24 Source: Developed by Drs. Ziggy Martino, Mesha Frye, Eben Dacosta and colleagues, with an educational susie from [employer]. Review of Systems Const Details: Const Denies chills, Denies fatigue, Denies fever(s), Denies headache(s) and Denies weakness ENT Denies dizziness and Denies headache(s) Card Denies chest pain, Denies lightheadedness, Denies dyspnea and Denies other (Palpitations) Resp Denies cough, Denies dyspnea, Denies wheezing and Denies other ( shortness of breath) GI Denies abdominal pain, Denies melena, Denies hematochezia, Denies change in bowel habits, Denies dyspepsia and Denies nausea Denies hematuria and Denies dysuria Musc Denies abnormal gait, Denies myalgias, Denies arthralgias, Denies numbness and Denies tingling Skin/Breast Denies rash, Denies unusual bruising and Denies wounds Neuro Denies abnormal gait, Denies dizziness, Denies headache(s), Denies memory loss, Denies numbness, Denies Sensory deficit (Neuro), Denies tingling and Denies weakness Psych Denies anxiety, Denies depression, Denies memory loss Endo Denies cold intolerance, Denies fatigue, Denies heat intolerance, Denies polydipsia and Denies polyuria Aller/Immun Denies wheezing Physical exam (Primary Care) Vital Signs: Last Vital Signs Temp 98.2 F 09/10/24 10:56 Pulse 82 09/10/24 10:56 Resp 16 09/10/24 10:56 BP 145/67 H 09/10/24 10:56 Pulse Ox 97 09/10/24 10:56 Oxygen Delivery Method Room Air 09/10/24 10:56 BMI result Body Mass Index 34.4 Tobacco/Smoking Status: Tobacco use Status Tobacco use date assessed 09/10/24 09/10/24 11:00 Patient Tobacco Use Status Current everyday Tobacco 09/10/24 10:53 e-Cigarette/Vaping Use Never Used 09/10/24 10:53 Thrive Assessment: Date of Thrive Assessment Date Thrive assessed 04/04/24 09/10/24 10:53 Currently or been in a relationship where the following occur: No concerns reported Const Other: General: no acute distress and well developed Nutritional Appearance: well nourished Orientation/consciousness: patient oriented x3 [facility] Head: Yes normocephalic and Yes atraumatic Eyes General: appearance normal, both eyes and all related structures Pupils: Equal, round and reactive pupils present EOM: EOMs intact bilaterally Resp Effort & Inspection: normal respiratory effort Auscultation: clear to auscultation bilaterally Cardio Rate: regular rate Rhythm: regular rhythm Heart sounds: S1 normal heart sound present, S2 normal heart sound present, no gallops, no murmurs and no rubs GI Palpation (GI): No Abdominal aortic bruit present, Soft to palpation, nontender, No hepatosplenomegaly present and No Rebound tenderness present Auscultation: normal bowel sounds General: Yes no CVA tenderness Back/Spine/Pelvis Back: no CVA tenderness Cervical Spine: cervical ROM normal and No Cervical spine tenderness Thoracic/Lumbar Spine: thoraco-lumbar ROM normal, No pain with thoraco-lumbar ROM, No thoracic spinal tenderness and No lumbar spinal tenderness Extrem General: Yes normal to inspection, No edema and No calf tenderness Skin General: warm and dry. Normal skin color. Normal skin turgor Lesions: no lesions Rashes: no rashes Trauma: no lacerations or abrasions Wounds: no wounds Nails: normal Neuro General: patient oriented x3, gait normal and no focal neuro deficit Cranial nerves: Yes Equal, round and reactive pupils present Cognition (Neuro): normal cognition Gait exam (Neuro): Normal gait present Sensory Exam: No Sensory deficit (Neuro) Psych Appearance: grossly normal Affect: normal affect Attitude: cooperative Thought process: Normal thought process present Coding Level of Care Code Est Pt Level 4 (18360) Diagnoses Essential hypertension I10 Hypernatremia E87.0 Pre-diabetes R73.03 Assessment & Plan Assessment & Plan (1) Essential hypertension: Code(s): I10 - Essential (primary) hypertension Category: Medical Plan: Resting blood pressure is 110/60, within goal of less than 130/80. Continue current treatment regimen. Low-sodium diet encouraged. Follow-up in 3 months or sooner with symptoms or concerns. Verbalized understanding and agreed with the plan. (2) Hypernatremia: Code(s): E87.0 - Hyperosmolality and hypernatremia Category: Medical Plan: Recent sodium level in April is slightly elevated, 146. Will recheck sodium levels and make changes as needed. Will also check CBC which is older than a year. (3) Pre-diabetes: Code(s): R73.03 - Prediabetes Category: Medical Plan: Recent A1c level was 5.7% over a year ago. Will recheck A1c and make changes as needed. Orders: Orders Complete Blood Count Auto Diff Today I10 - Essential (primary) hypertension Hemoglobin A1c Today R73.03 - Prediabetes Sodium Today E87.0 - Hyperosmolality and hypernatremia
[2024-09-10 10:56] VITALS: BP 145/67; PULSE 82; RESP 16; TEMP 36.8; O2SAT 97; BMI 34.4
[2024-09-10 11:12] VITALS: BP 110/60
--- OUTSIDE RECORDS SUMMARY | 2024-09-10 11:43 | XMS_ITS | Clinical Summary ---
Author Organization [facility] Facility Address [address] [place] [address] Care Team Providers Care Paper Mill Supervisor Name Role Phone Terese Silvestre SUSHMA Primary Care Provider [phone] Allergies Active Allergy Reactions Criticality Noted Date [...] Visit [facility] [address] [place] [address] Pedro Lee MD [address] [phone] Health Maintenance Due Date Last Done Comments Breast Cancer Screening 1955 Pneumococcal Vaccine: 50+ Ye ars (1 of 2 - PCV) 10/30/1975 Colorectal Cancer Screening: Annual FOBT 2005 Colorectal Cancer Screening: Colonoscopy 2005 Colorectal Cancer Screening: Sigmoidoscopy 2005 Influenza Vaccine (#1) 2024 Hepatitis B Vaccine Aged Out No longe r eligible based on patient's age to complete this topic Insurance [facility] ([id number]) [facility] ([id number]) Care Teams Paper Mill Supervisor Relationship Specialty Start Date End Date Terese Silvestre CNP [address] [place] [id number] PCP - General 03/16/22
== END 2024-09-10 11:22 | disposition home or self-care (01) ==
LOC: HO.HMCFM 10:47
PROVIDERS: PCP Nurse Practitioner Family; Visit Provider Nurse Practitioner Family
DX: I10 Essential (primary) hypertension (principal); E87.0 Hyperosmolality and hypernatremia; R73.03 Prediabetes

== ENCOUNTER → 2024-09-10 10:47 | Outpatient (BNVA) | payer OTHER, SELFPAY | PROVIDERS: PCP Nurse Practitioner Family; Visit Provider Nurse Practitioner Family | DX: I10 Essential (primary) hypertension (principal); E87.0 Hyperosmolality and hypernatremia; R73.03 Prediabetes | CPT/HCPCS: 99212 ==

== ENCOUNTER 2024-09-10 11:47 | Outpatient (REF) | payer OTHER, SELFPAY ==
[2024-09-10 15:28] LABS: MANUAL DIFF FLAG NO
[2024-09-10 15:41] LABS: Hematocrit 43.4 % (37.0-47.0); Hemoglobin 14.7 g/dl (12.0-16.0); Imm Gran Abs Auto 0.01 X10*3/uL (0.00-0.03); Imm Gran Pct Auto 0.1 % (0.0-0.4); Lymphocytes Absolute Auto 2.3 X10*3/uL (1.2-4.9); Mean Corpuscular HGB Conc 33.9 g/dl (31.0-35.0); Mean Corpuscular Hemoglobin 31.7 pg (27.0-33.0); Mean Corpuscular Volume 93.7 fL (80.0-98.0); NRBC Abs Auto 0.000 X10*3/uL (0.0-0.012); NRBC Pct Auto 0.0 /100WBC (0.0-0.2); Platelet Count 230 X10*3/uL (160-400); Red Blood Count 4.63 X10*6/uL (4.20-5.50); White Blood Count 8.6 X10*3/uL (4.8-10.8)
[2024-09-10 15:45] LABS: Hemoglobin A1C 150.2449 umol/L; Total Hemoglobin (HGBA1C) 3849.6390 umol/L
[2024-09-10 16:07] LABS: Calcium 9.7 mg/dL (8.4-10.2); Sodium 144 mmol/L (135-145)
[2024-09-10 16:49] LABS: Parathyroid Hormone Intact 69.7 pg/mL (8.7-77.1)
== END 2024-09-10 11:48 | disposition home or self-care (01) ==
LOC: HO.WFDLDS 11:47
PROVIDERS: Internal Medicine Endocrinology, Diabetes & Metabolism; Visit Provider Nurse Practitioner Family
DX: M81.0 Age-related osteoporosis without current pathological fracture (principal); I10 Essential (primary) hypertension; E87.0 Hyperosmolality and hypernatremia; E21.3 Hyperparathyroidism, unspecified; R73.03 Prediabetes
CPT/HCPCS: 36415; 82310; 83036; 83970; 84295; 85025

== ENCOUNTER 2024-09-17 12:20 | Outpatient (AMB) | payer OTHER, SELFPAY ==
--- NOTE | 2024-09-17 12:37 | MHC.AMNUTRGE ---
VS Expanded 09/17/24 12:38 Height 5 ft 4 in Weight 203 lb 7.787 oz BMI 34.9 Intake Visit Reasons: Obesity Allergies acetaminophen (Vicodin) Allergy (Unknown, Verified 09/10/24 11:05) tongue swells, hives on bottom of feet adhesive tape (Adhesive Tape) Allergy (Unknown, Verified 09/10/24 11:05) Rash hydrocodone (Vicodin) Allergy (Unknown, Verified 09/10/24 11:05) tongue swells, hives on bottom of feet latex (Latex) Allergy (Unknown, Verified 09/10/24 11:05) Rash, red blisters penicillin V Allergy (Unknown, Verified 09/10/24 11:05) hives, rash Penicillins Allergy (Unknown, Verified 09/10/24 11:05) Rash, Nausea and Vomiting Sulfa (Sulfonamide Antibiotics) Allergy (Unknown, Verified 09/10/24 11:05) Hives, rash amphetamine (Adderall) Adverse Reaction (Unknown, Verified 09/10/24 11:05) diarrhea dextroamphetamine (Adderall) Adverse Reaction (Unknown, Verified 09/10/24 11:05) diarrhea morphine (MORPHINE) Adverse Reaction (Unknown, Verified 09/10/24 11:05) Nausea and Vomiting phenobarbital (Phenobarbital) Adverse Reaction (Unknown, Verified 09/10/24 11:05) extreme hyperactivity meperidine (From Demerol) Adverse Reaction (Verified 09/10/24 11:05) Vomiting Nutrition Presentation Details: Pt presents for MNT f/u for obesity Pt presents with son to this appointment Pt reports lately choosing higher fat foods and eating later at night. Physical activity has lessened continues to have home delivered meals from [employer] BS Monitoring Most Recent Diabetes Results: Sodium, (135-145) 144 mmol/L 09/10/24 Calcium, (8.4-10.2) 9.7 mg/dL 09/10/24 [facility] Medical History FH: cholecystectomy Hypersomnia Snoring Expressive aphasia Dysgraphia Stroke Multiple allergies Cholelithiasis Overactive bladder Recurrent urinary tract infection History of CVA with residual deficit Expressive aphasia History of CVA (cerebrovascular accident) Refused influenza vaccine COVID-19 vaccination declined Impaired fasting glucose Dyslipidemia Osteoporosis Psoriasis Gestational diabetes Hx of uterine prolapse Osteoarthritis of knees, bilateral Bipolar 1 disorder CKD (chronic kidney disease) stage 2, GFR 60-89 ml/min Essential hypertension Rectocele Urge incontinence Elevated blood pressure reading in office with diagnosis of hypertension Hypotonic bladder Urinary tract infection Dyspareunia in female Surgical History History of partial mastectomy of left breast History of bilateral oophorectomy H/O mastectomy Hx of cholecystectomy History of total left knee replacement (TKR) History of total right knee replacement (TKR) History of Maloney urethropexy Hx of total vaginal hysterectomy H/O rectocele repair Family History Father Diabetes mellitus CHF (congestive heart failure) Mother FH: stomach cancer Crohn disease Son Mental health disorder Social History Household Members: Children Housing: Apartment Do you presently have visiting nurse or other home services: Yes Alcohol intake: never Patient Tobacco Use Status: Current everyday Tobacco user Cigarette Packs Per Day: 0.1 Cigarettes Per Day: 6 Years Smoked: 40 e-Cigarette/Vaping Use: Never Used Second Hand Smoke Exposure: No service: No Current occupational status: disabled Current occupational exposures/hazards: No Sexual orientation: Straight/Heterosexual Gender identity: Female Cognitive needs: No Hearing needs: No Vision needs: No Assessment & Plan Assessment & Plan (1) Abnormal weight gain: Code(s): R63.5 - Abnormal weight gain Category: Medical Plan: Wt: 93Kg ( 03/24 ), 92kg (04/24), 89.5 kg(05/22), 91 kg (07/22), 92 kg (09/21) Est kcal needs as per MSJ: 1700 (40% carb, 30% protein/fat) Est fluid needs as per 25-30 ml/d: 2700 Est prot per day as per 1 g/kg bw: 90 Recommend fiber intake : 8-10 g per day and gradually increase to 25-28 g per day for women and 35-38 g for men or as tolerated Recommend sodium intake per day : less than 2300 mg Educated patient on: ( R = reviewed V = verbalizes understanding N/R = needs review N/A = not applicable Food sources of carbohydrate, adequate serving sizes and its role in various health conditions: R Differences between complex carbohydrates a simple carbohydrates, role of fiber in diet: R Lean protein sources of foods: R Differences between types of fats and role in diet (mono on saturated fat fatty acids, saturated fatty acids, trans fats): R Food sources of sodium in salt and healthy modifications for heart health in kidney health: R Vitamins and minerals: R V N/R Healthy plate method concept: R Physical activity: Benefits a precaution: R Patient Instructions: choose lower fat starches (have sliced bread vs crossaint) HAve a meal replacement once a day Coding Level of Care Code Nutr Indiv Subseq ([id number]) Diagnoses Abnormal weight gain R63.5 Time Spent (min) 30
[2024-09-17 12:38] VITALS: BMI 34.9
--- OUTSIDE RECORDS SUMMARY | 2024-09-17 13:09 | XMS_ITS | Clinical Summary ---
Author Organization [facility] Facility Address [address] [place] [address] Care Team Providers Care Nonfarm Animal Caretaker Name Role Phone Terese Silvestre SUSHMA Primary Care Provider [phone] Allergies Active Allergy Reactions Criticality Noted Date [...] [facility] [address] [place] [address] Pedro Lee MD [address] [phone] Health Maintenance Due Date Last Done Comments Breast Cancer Screening 1955 Pneumococcal Vaccine: 50+ Ye ars (1 of 2 - PCV) 10/30/1975 Colorectal Cancer Screening: Annual FOBT 2005 Colorectal Cancer Screening: Colonoscopy 2005 Colorectal Cancer Screening: Sigmoidoscopy 2005 Influenza Vaccine (#1) 2024 Hepatitis B Vaccine Aged Out No longe r eligible based on patient's age to complete this topic Insurance [facility] ([id number]) [facility] ([id number]) Care Teams Nonfarm Animal Caretaker Relationship Specialty Start Date End Date Terese Silvestre CNP [address] [place] [phone] PCP - General 03/16/22
== END 2024-09-17 13:09 | disposition home or self-care (01) ==
LOC: HO.ENCR 12:21
PROVIDERS: PCP Nurse Practitioner Family; Visit Provider Dietitian, Registered
DX: R63.5 Abnormal weight gain (principal)

== ENCOUNTER → 2024-09-17 12:20 | Outpatient (BNVA) | payer OTHER, SELFPAY | PROVIDERS: PCP Nurse Practitioner Family; Visit Provider Dietitian, Registered | DX: Z71.3 Dietary counseling and surveillance (principal); R63.5 Abnormal weight gain | CPT/HCPCS: 97803 ==

== ENCOUNTER 2024-10-25 11:34 | Outpatient (REF) | payer OTHER, SELFPAY ==
[2024-10-25 16:05] LABS: Albumin Level 4.7 g/dL (3.5-5.0); Anion Gap 12 (12-20); Blood Urea Nitrogen 12 mg/dL (9-16); Calcium 9.7 mg/dL (8.4-10.2); Carbon Dioxide 26 mmol/L (22-29); Chloride 108 mmol/L (96-108); Estimated Glomerular Filt Rate 50; Potassium 4.3 mmol/L (3.3-5.1); Sodium 142 mmol/L (135-145)
== END 2024-10-25 11:35 | disposition home or self-care (01) ==
LOC: HO.LAB 11:34
PROVIDERS: Absent Provider Internal Medicine Endocrinology, Diabetes & Metabolism; PCP Nurse Practitioner Family; Visit Provider Nurse Practitioner Family
DX: R35.0 Frequency of micturition (principal); M81.0 Age-related osteoporosis without current pathological fracture; R33.9 Retention of urine, unspecified; N39.41 Urge incontinence; N32.81 Overactive bladder; N39.0 Urinary tract infection, site not specified; B96.29 Other Escherichia coli [E. coli] as the cause of diseases classified elsewhere; I12.9 Hypertensive chronic kidney disease with stage 1 through stage 4 chronic kidney disease, or unspecified chronic kidney disease; N18.2 Chronic kidney disease, stage 2 (mild); Z16.12 Extended spectrum beta lactamase (ESBL) resistance; F17.210 Nicotine dependence, cigarettes, uncomplicated; Z79.899 Other long term (current) drug therapy; Z79.82 Long term (current) use of aspirin
CPT/HCPCS: 36415; 80048; 81003; 82040; 99212

== ENCOUNTER 2024-10-25 11:34 | Outpatient (AMB) | payer OTHER, SELFPAY ==
--- NOTE | 2024-10-25 11:43 | A.OFFVIS_ITS ---
Intake Visit Reasons: 3M follow up/ US Intake Note: Patient is present for 3M/US Urology Medication:VITAMIN C,TOLTERODINE,METHENAMINE HIPPURATE Antibiotic Allergy:PENICILLINS,SULFA Blood Thinner:ASPIRIN Account Support Analyst Required: No Allergies acetaminophen (Vicodin) Allergy (Unknown, Verified 10/25/24 12:59) tongue swells, hives on bottom of feet adhesive tape (Adhesive Tape) Allergy (Unknown, Verified 10/25/24 12:59) Rash hydrocodone (Vicodin) Allergy (Unknown, Verified 10/25/24 12:59) tongue swells, hives on bottom of feet latex (Latex) Allergy (Unknown, Verified 10/25/24 12:59) Rash, red blisters penicillin V Allergy (Unknown, Verified 10/25/24 12:59) hives, rash Penicillins Allergy (Unknown, Verified 10/25/24 12:59) Rash, Nausea and Vomiting Sulfa (Sulfonamide Antibiotics) Allergy (Unknown, Verified 10/25/24 12:59) Hives, rash amphetamine (Adderall) Adverse Reaction (Unknown, Verified 10/25/24 12:59) diarrhea dextroamphetamine (Adderall) Adverse Reaction (Unknown, Verified 10/25/24 12:59) diarrhea morphine (MORPHINE) Adverse Reaction (Unknown, Verified 10/25/24 12:59) Nausea and Vomiting phenobarbital (Phenobarbital) Adverse Reaction (Unknown, Verified 10/25/24 12:59) extreme hyperactivity meperidine (From Demerol) Adverse Reaction (Verified 10/25/24 12:59) Vomiting Medication List - Last Reconciled 10/25/24 by GILDA Redding amlodipine 5 mg PO DAILY ascorbic acid (vitamin C) 1,000 mg PO DAILY 90 days aspirin 81 mg PO DAILY 90 days atorvastatin 80 mg PO BEDTIME 90 days cholecalciferol (vitamin D3) (Vitamin D3) 25 mcg PO DAILY lisinopril 20 mg PO DAILY 90 days methenamine hippurate 1 g PO daily 90 days metoprolol succinate ER 100 mg PO DAILY 90 days quetiapine ER 100 mg (2 x 50 mg) PO BEDTIME 30 days sennosides (senna) 8.6 mg PO BEDTIME 90 days tolterodine ER 4 mg PO DAILY 90 days zolpidem 10 mg PO BEDTIME HPI Comments Details: Bev is a pleasant 68 year-old female patient of Dr. Silvestre. She has a past medical history of bipolar, CKD stage 2, dyslipidemia, hypertension, history of CVA with expressive aphasia, osteoarthritis, recurrent urinary tract infections, and overactive bladder. She presents to the office today for follow- up regarding her frequent urinary tract infections, overactive bladder and incomplete bladder emptying. In discussion with the patient today she reports to be doing and feeling well. She denies having had any bothersome urinary issues or concerns since her last office visit here. She does report episodes of right-sided flank pain she had been experiencing has since subsided. Recent retroperitoneal ultrasound results were reviewed with the patient today 08/22 bilateral kidneys with no hydronephrosis. Normal bilateral renal echogenicity. Nonobstructing 2 mm mid pole nonobstructing stone. 1.2 cm lower pole right renal cyst. The bladder is unremarkable. Postvoid bladder volume is approximately 100 mL. She currently denies any UTI like symptoms. She reports compliance with Estrace cream, methenamine, vitamin-C, and tolterodine as prescribed. In office urinalysis results reviewed with the patient today. She denies urinary urgency, urinary frequency, incontinence, nocturia, hematuria, dysuria, changes to urinary stream, fever, and or chills. She is happy with her current voiding parameters. Patient with a previous history of following up with Infectious Disease due to ongoing E coli with resistance and colonization. She discusses being very active and walks approximately 2 1/2-3 miles per day. All questions were answered. She otherwise offers other issues or concerns at this time. [facility] Medical History FH: cholecystectomy Hypersomnia Snoring Expressive aphasia Dysgraphia Stroke Multiple allergies Cholelithiasis Overactive bladder Recurrent urinary tract infection History of CVA with residual deficit Expressive aphasia History of CVA (cerebrovascular accident) Refused influenza vaccine COVID-19 vaccination declined Impaired fasting glucose Dyslipidemia Osteoporosis Psoriasis Gestational diabetes Hx of uterine prolapse Osteoarthritis of knees, bilateral Bipolar 1 disorder CKD (chronic kidney disease) stage 2, GFR 60-89 ml/min Essential hypertension Rectocele Urge incontinence Elevated blood pressure reading in office with diagnosis of hypertension Hypotonic bladder Urinary tract infection Dyspareunia in female Surgical History History of partial mastectomy of left breast History of bilateral oophorectomy H/O mastectomy Hx of cholecystectomy History of total left knee replacement (TKR) History of total right knee replacement (TKR) History of Maloney urethropexy Hx of total vaginal hysterectomy H/O rectocele repair Family History Father Diabetes mellitus CHF (congestive heart failure) Mother FH: stomach cancer Crohn disease Son Mental health disorder Social History Household Members: Children Housing: Apartment Do you presently have visiting nurse or other home services: Yes Alcohol intake: never Patient Tobacco Use Status: Current everyday Tobacco user Cigarette Packs Per Day: 0.1 Cigarettes Per Day: 6 Years Smoked: 40 e-Cigarette/Vaping Use: Never Used Second Hand Smoke Exposure: No service: No Current occupational status: disabled Current occupational exposures/hazards: No Sexual orientation: Straight/Heterosexual Gender identity: Female Cognitive needs: No Hearing needs: No Vision needs: No Review of Systems Const Reports as per HPI Eyes Reports no additional complaints ENT Reports no additional complaints Card Reports no additional complaints Resp Reports no additional complaints GI Details: Reports as per HPI Reports as per HPI Musc Reports no additional complaints Skin/Breast Reports as per HPI Neuro Reports as per HPI Endo Reports no additional complaints Physical Exam Const General: cooperative, healthy appearing, comfortable, no acute distress, well developed, alert and awake Orientation/consciousness: patient oriented x3 Limitations: other limitations (Expressive aphasia) HEENT Head: Yes normal to inspection, Yes normocephalic and Yes atraumatic Ears: hearing grossly normal bilaterally Eyes General: appearance normal, both eyes and all related structures Neck Neck: Yes normal visual inspection and Yes trachea midline Chest Other: left sided chest dressing; clean dry and intact Resp Effort & Inspection: normal respiratory effort and able to speak in complete sentences Cardio Rate: regular rate GI Inspection: Yes normal to inspection General: Yes no CVA tenderness Back/Spine/Pelvis Back: no CVA tenderness Skin General skin exam: no rashes or lesions noted Neuro General: patient oriented x3 Extrem General: Yes normal to inspection Psych Appearance: grossly normal and well kempt Mental Status: mental status grossly normal Speech and movement: Normal speech and movement present and Clear speech present Affect: normal affect Attitude: cooperative Thought process: Normal thought process present Thought content: Normal thought content present Insight: Fair insight present (Psych) Judgement: Fair judgement present (Psych) Results AMB Urinalysis, Automated UA Leukoctes 0 Emiliano/uL Last Edit by NAVIN Hickey on 10/25/24 11:57 UA Nitrite Negative Last Edit by Evgeny Blanco [facility] on 10/25/24 11:57 UA Urobilinogen 0.2 mg/dL Last Edit by Evgeny Blanco [facility] on 10/25/24 11:5 7 UA Protein 15 mg/dL Last Edit by Evgeny Blanco [facility] on 10/25/24 11:57 UA pH 6.0 Last Edit by Evgeny Blanco [facility] on 10/25/24 11:57 UA Blood 0 Maximiliano/uL Last Edit by Evgeny Blanco [facility] on 10/25/24 11:57 UA Specific [place] 1.015 Last Edit by Evgeny Blanco [facility] on 10/25/24 11: 57 UA Ketone Negative Last Edit by Evgeny Blanco [facility] on 10/25/24 11:57 UA Bilirubin 0 mg/dL Last Edit by Evgeny Blanco [facility] on 10/25/24 11:57 UA Glucose 0 mg/dL Last Edit by Evgeny Blanco [facility] on 10/25/24 11:57 Results Reviewed Results Reviewed: Laboratory Last Values Urine pH (Auto) 6.0 10/25/24 11:56 Specific [place] (Auto) 1.015 10/25/24 11:56 Urine Protein (Auto) 15 mg/dL 10/25/24 11:56 Glucose (UA)(Auto) 0 mg/dL 10/25/24 11:56 Urine Ketones (Auto) Negative 10/25/24 11:56 Urine Blood (Auto) 0 Maximiliano/uL 10/25/24 11:56 Urine Nitrite (Auto) Negative 10/25/24 11:56 Urine Bilirubin (Auto) 0 mg/dL 10/25/24 11:56 Urine Urobilinogen (Auto) 0.2 mg/dL 10/25/24 11:56 Leukocyte Esterase (Auto) 0 Emiliano/uL 10/25/24 11:56 Assessment & Plan Assessment & Plan (1) Urinary frequency: Code(s): R35.0 - Frequency of micturition Category: Medical (2) Incomplete bladder emptying: Code(s): R33.9 - Retention of urine, unspecified Category: Medical (3) Urge incontinence: Code(s): N39.41 - Urge incontinence Category: Medical (4) Overactive bladder: Code(s): N32.81 - Overactive bladder Category: Medical (5) UTI due to extended-spectrum beta lactamase (ESBL) producing Escherichia coli: Code(s): N39.0 - Urinary tract infection, site not specified; B96.29 - Other Escherichia coli [E. coli] as the cause of diseases classified elsewhere; Z16.12 - Extended spectrum beta lactamase (ESBL) resistance Category: Medical (6) Recurrent urinary tract infection: Code(s): N39.0 - Urinary tract infection, site not specified Category: Medical Plan In office urinalysis results reviewed with the patient today; as noted above. Recent retroperitoneal ultrasound results with the patient today; as noted above. Will continue with surveillance monitoring. We discussed the importance of adequate hydration relation to recurrent urinary tract infections as well as nephrolithiasis. She currently denies any bothersome urinary issues. She reports be happy with current voiding parameters. Will continue Estrace cream, tolterodine, methenamine, and vitamin-C as prescribed; refills provided. All questions were answered. Discussed UTI prevention with D mannose supplement, vitamin-C, increasing fluid intake, behavioral therapy with timed voiding, perineal hygiene and postcoital voiding, and management of constipation with stool softeners and increased fiber intake. Follow-up in 3-6 months with [facility]; or sooner with any issues, concerns, and or questions. Orders: Orders AMB Urinalysis Automated Today Z13.9 - Encounter for screening, unspecified Medications: Refilled tolterodine ER 4 mg PO DAILY 90 caps 3RF 90 days ascorbic acid (vitamin C) 1,000 mg PO DAILY 90 tabs 3RF 90 days methenamine hippurate 1 g PO daily 90 tabs 3RF 90 days Patient Instructions: The patient had an opportunity to ask questions regarding the treatment plan. All questions were answered. Physical exam, labs, and imaging were discussed and reviewed in detail. As well as risks, benefits, and discussion of treatment choices. No major barriers to understanding were identified. The patient expressed understanding and agreement with the above treatment plan. The patient was made aware they should contact our office by phone for worsening of their current condition, the appearance of new symptoms, or with any questions or concerns. Compliance is encouraged with any medications and follow up testing that is ordered. It is a privilege to be allowed the opportunity to participate in? your urological care.? Again, if you have any questions or concerns If you have any questions or concerns please do not hesitate to contact me. The office is [phone]. This note is constructed using voice recognition software. While every effort has been made to ensure accuracy dust collector attendant errors may have been included. Yours sincerely, GENEVA Redding Coding Level of Care Code Est Pt Level 3 (73931) Complex EM visit Add On G2211 Diagnoses Urinary frequency R35.0 Incomplete bladder emptying R33.9 Urge incontinence N39.41 Overactive bladder N32.81 UTI due to extended-spectrum beta lactamase (ESBL) producing Escherichia coli N39.0; B96.29; Z16.12 Recurrent urinary tract infection N39.0
--- OUTSIDE RECORDS SUMMARY | 2024-10-25 12:51 | XMS_ITS | Encounter Summary ---
Author Organization [facility] Address [address] [facility] [address] [place] [address] Phone Care Team Providers Care Crm Functional Analyst Name Role Phone Terese Silvestre CNP Primary Care Provider [phone] Reason for Visit * Reason Comments Med Refill Encounter Details Date Type Department Care Team (Late st Contact Info) Description 09/16/2020 Refill [facility] [place] [address] [place] [address] Pedro Lee MD [address] [address] Social History Tobacco Use Types [...] Office Visit [facility] [address] [place] [address] Pedro Lee MD [address] [facility] [address] [place] [address] documented as of this encounter Visit Diagnoses Not on filedocumented in this encounter Care Teams Crm Functional Analyst Relationship Specialty Start Date End Date Terese Silvestre CNP [address] [place] [address] PCP - General 03/16/22 documented as of this encounter
--- OUTSIDE RECORDS SUMMARY | 2024-10-25 12:51 | XMS_ITS | Clinical Summary ---
Author Organization [facility] Facility Address [address] [place] [address] Care Team Providers Care Pipeline Engineer Name Role Phone Terese Silvestre SUSHMA Primary Care Provider [phone] Allergies Active Allergy Reactions Criticality Noted Date [...] Visit [facility] [address] [place] [address] Pedro Lee MD [address] [phone] Health Maintenance Due Date Last Done Comments Breast Cancer Screening 1955 Pneumococcal Vaccine: 50+ Ye ars (1 of 2 - PCV) 10/30/1975 Colorectal Cancer Screening: Annual FOBT 2005 Colorectal Cancer Screening: Colonoscopy 2005 Colorectal Cancer Screening: Sigmoidoscopy 2005 Influenza Vaccine (#1) 2024 Hepatitis B Vaccine Aged Out No longe r eligible based on patient's age to complete this topic Insurance [facility] ([id number]) [facility] ([id number]) Care Teams Pipeline Engineer Relationship Specialty Start Date End Date Terese Silvestre CNP [address] [place] [id number] PCP - General 03/16/22
== END 2024-10-25 12:14 | disposition home or self-care (01) ==
LOC: HO.HUSH 11:35
PROVIDERS: PCP Nurse Practitioner Family; Visit Provider Nurse Practitioner Family
DX: R35.0 Frequency of micturition (principal); R33.9 Retention of urine, unspecified; N39.41 Urge incontinence; N32.81 Overactive bladder; N39.0 Urinary tract infection, site not specified; B96.29 Other Escherichia coli [E. coli] as the cause of diseases classified elsewhere; Z16.12 Extended spectrum beta lactamase (ESBL) resistance; Z13.9 Encounter for screening, unspecified
CPT/HCPCS: 99213; G2211

== ENCOUNTER 2024-10-30 10:42 | Outpatient (AMB) | payer OTHER, SELFPAY ==
--- NOTE | 2024-10-30 10:54 | A.OFFVIS_ITS ---
Vital Signs 10/30/24 10:55 Height 5 ft 4 in Weight 202 lb 13.204 oz BMI 34.8 BP 122/68 Blood Pressure Location Rt brachial Position Sitting Pulse 75 Pulse Source Pulse Oximeter Pulse Oximetry (%) 96 Oxygen Delivery Method Room Air Intake Visit Reasons: Osteoporosis/prolia injection Intake Note: Patient present today for Osteoporosis and Prolia injection. [employer] Information Clerk Required: No Accompanied by: Self / Same As Patient Allergies acetaminophen (Vicodin) Allergy (Unknown, Verified 10/30/24 10:58) tongue swells, hives on bottom of feet adhesive tape (Adhesive Tape) Allergy (Unknown, Verified 10/30/24 10:58) Rash hydrocodone (Vicodin) Allergy (Unknown, Verified 10/30/24 10:58) tongue swells, hives on bottom of feet latex (Latex) Allergy (Unknown, Verified 10/30/24 10:58) Rash, red blisters penicillin V Allergy (Unknown, Verified 10/30/24 10:58) hives, rash Penicillins Allergy (Unknown, Verified 10/30/24 10:58) Rash, Nausea and Vomiting Sulfa (Sulfonamide Antibiotics) Allergy (Unknown, Verified 10/30/24 10:58) Hives, rash amphetamine (Adderall) Adverse Reaction (Unknown, Verified 10/30/24 10:58) diarrhea dextroamphetamine (Adderall) Adverse Reaction (Unknown, Verified 10/30/24 10:58) diarrhea morphine (MORPHINE) Adverse Reaction (Unknown, Verified 10/30/24 10:58) Nausea and Vomiting phenobarbital (Phenobarbital) Adverse Reaction (Unknown, Verified 10/30/24 10:58) extreme hyperactivity meperidine (From Demerol) Adverse Reaction (Verified 10/30/24 10:58) Vomiting Medication List - Last Reconciled 10/30/24 by Ziggy Ledezma MD amlodipine 5 mg PO DAILY ascorbic acid (vitamin C) 1,000 mg PO DAILY 90 days aspirin 81 mg PO DAILY 90 days atorvastatin 80 mg PO BEDTIME 90 days cholecalciferol (vitamin D3) (Vitamin D3) 25 mcg PO DAILY lisinopril 20 mg PO DAILY 90 days methenamine hippurate 1 g PO daily 90 days metoprolol succinate ER 100 mg PO DAILY 90 days quetiapine ER 100 mg (2 x 50 mg) PO BEDTIME 30 days sennosides (senna) 8.6 mg PO BEDTIME 90 days tolterodine ER 4 mg PO DAILY 90 days zolpidem 10 mg PO BEDTIME HPI Comments Details: 69 YO Female with PMHx CKD stage 2 is seen in consultation at the request of PCP for Osteoporosis. First diagnosed in recently . Received treatment in the past with Ev[facility] ,for 1 yr still on . Tolerated t reatment well without complication. No history of pathologic fracture or ONJ. Has severla servings of dietary calcium per day in the form of daily. Not Takes Calcium supplement Takes ? IU of Vitamin D daily in MVI . Denies ever using PPI, anticoagulant, antiepileptic or glucocorticoid medication. Does weight bearing exercise 7 days per week in the form of walking . Fracture history: No Height loss: No LEACHER history: age 40 still had ovaries Denies history of Kidney stones: Has family history of Osteoporosis but no hip fracture. Has false teeth No planned upcoming dental work or extractions. DXA dated 07/07/21 :FINDINGS: AP SPINE L1-L4: Current: BMD 1.011 g/cm2, Z-score -0.7, T-score -1.4, osteopenia, 4.1% increase from previous, 1.9% increase from baseline (<5% change is not significant). Prior: BMD 0.971 g/cm2. Baseline: BMD 0.992 g/cm2. LEFT FEMUR, NECK: Current: BMD 0.691 g/cm2, Z-score -1.6, T-score -2.5, osteoporosis. Prior: BMD 0.631 g/cm2. Baseline: BMD 0.643 g/cm2. LEFT FEMUR, TOTAL: Current: BMD 0.679 g/cm2, Z-score -2.1, T-score -2.6, osteoporosis, 13.7% increase from previous, 2.0% increase from baseline (<5% change is not significant). Prior: BMD 0.597 g/cm2. Baseline: BMD 0.666 g/cm2. IDENTIFIED RISK FACTORS: Early menopause, secondary osteoporosis, osteoporosis, renal, tobacco use (current smoker), hysterectomy. HISTORY OF FRACTURE: None listed. MEDICATIONS: Calcium or multivitamin. MM/XR DEXA axial skeleton IMPRESSION: 1. DIAGNOSIS: Osteoporosis based on the lowest T-score value of -2.6 in the total femur applying World Health Organization criteria.? ? Labs: No fx since last visit . Repat dexa showed substantial decreases in bone density FINDINGS: LEFT FEMUR, NECK: Current: BMD 0.647 g/cm2, Z-score -1.7, T-score -2.8, osteoporosis. Prior: BMD 0.691 g/cm2. Baseline: BMD 0.643 g/cm2. LEFT FEMUR, TOTAL: Current: BMD 0.599 g/cm2, Z-score -2.4, T-score -3.2, osteoporosis, 11.8% decrease from previous, 10.1% decrease from baseline (<5% change is not significant). Prior: BMD 0.679 g/cm2. Baseline: BMD 0.666 g/cm2. AP SPINE L1-L4: Current: BMD 0.858 g/cm2, Z-score -1.7, T-score -2.7, osteoporosis, 15.1% decrease from previous, 13.5% decrease from baseline (<5% change is not significant). Prior: BMD 1.011 g/cm2. Baseline: BMD 0.992 g/cm2. Received Prolia in 09/2023 . Tolerated well. No fx since last visit . Third injection of Prolia to be given today [facility] Medical History FH: cholecystectomy Hypersomnia Snoring Expressive aphasia Dysgraphia Stroke Multiple allergies Cholelithiasis Overactive bladder Recurrent urinary tract infection History of CVA with residual deficit Expressive aphasia History of CVA (cerebrovascular accident) Refused influenza vaccine COVID-19 vaccination declined Impaired fasting glucose Dyslipidemia Osteoporosis Psoriasis Gestational diabetes Hx of uterine prolapse Osteoarthritis of knees, bilateral Bipolar 1 disorder CKD (chronic kidney disease) stage 2, GFR 60-89 ml/min Essential hypertension Rectocele Urge incontinence Elevated blood pressure reading in office with diagnosis of hypertension Hypotonic bladder Urinary tract infection Dyspareunia in female Surgical History History of partial mastectomy of left breast History of bilateral oophorectomy H/O mastectomy Hx of cholecystectomy History of total left knee replacement (TKR) History of total right knee replacement (TKR) History of Maloney urethropexy Hx of total vaginal hysterectomy H/O rectocele repair Family History Father Diabetes mellitus CHF (congestive heart failure) Mother FH: stomach cancer Crohn disease Son Mental health disorder Social History Household Members: Children Housing: Apartment Do you presently have visiting nurse or other home services: Yes Alcohol intake: never Patient Tobacco Use Status: Current everyday Tobacco user Cigarette Packs Per Day: 0.1 Cigarettes Per Day: 6 Years Smoked: 40 e-Cigarette/Vaping Use: Never Used Second Hand Smoke Exposure: No service: No Current occupational status: disabled Current occupational exposures/hazards: No Sexual orientation: Straight/Heterosexual Gender identity: Female Cognitive needs: No Hearing needs: No Vision needs: No Physical Exam Vital Signs: Last Vital Signs Pulse 75 10/30/24 10:55 BP 122/68 10/30/24 10:55 Pulse Ox 96 10/30/24 10:55 Oxygen Delivery Method Room Air 10/30/24 10:55 BMI result Body Mass Index 34.8 Assessment & Plan Assessment & Plan (1) Osteoporosis: Code(s): M81.0 - Age-related osteoporosis without current pathological fracture Category: Medical Plan: This 68-year-old white female with a history of osteoporosis with negative l secondary workup in the setting of CKD stage 3 b. recent DEXA showed decreases in bone density but normalization of PTH and vitamin-D as well as corrected calcium. Currently on Prolia 60 mg q.6 months last dose given 10/26/2023. To receive 3rd Prolia injection today Plan is to continue with the Prolia for 3-5 year course. Should continue with the calcium and vitamin-D supplementation Coding Level of Care Code Est Pt Level 3 (40429) Diagnoses Osteoporosis M81.0
[2024-10-30 10:55] VITALS: BP 122/68; PULSE 75; O2SAT 96; BMI 34.8
--- OUTSIDE RECORDS SUMMARY | 2024-10-30 12:13 | XMS_ITS | Clinical Summary ---
Author Organization [facility] Facility Address [address] [place] [phone] Care Team Providers Care Director Veterinary Name Role Phone Terese Silvestre SUSHMA Primary Care Provider [phone] Allergies Active Allergy Reactions Criticality Noted Date [...] Visit [facility] [address] [place] [address] Pedro Lee MD [address] [phone] Health Maintenance Due Date Last Done Comments Breast Cancer Screening 1955 Pneumococcal Vaccine: 50+ Ye ars (1 of 2 - PCV) 10/30/1975 Colorectal Cancer Screening: Annual FOBT 2005 Colorectal Cancer Screening: Colonoscopy 2005 Colorectal Cancer Screening: Sigmoidoscopy 2005 Influenza Vaccine (#1) 2024 Hepatitis B Vaccine Aged Out No longe r eligible based on patient's age to complete this topic Insurance [facility] ([id number]) [facility] ([id number]) Care Teams Director Veterinary Relationship Specialty Start Date End Date Terese Silvestre CNP [address] [place] [id number] PCP - General 03/16/22
--- OUTSIDE RECORDS SUMMARY | 2024-10-30 12:13 | XMS_ITS | Encounter Summary ---
Author Organization [facility] Address [address] [facility] [address] [place] [address] Phone Care Team Providers Care Manager Desktop Name Role Phone Terese Silvestre CNP Primary Care Provider [phone] Reason for Visit * Reason Comments Med Refill Encounter Details Date Type Department Care Team (Late st Contact Info) Description 09/16/2020 Refill [facility] [address] [place] [address] Pedro Lee MD [address] [phone] Social History Tobacco Use Types [...] of [facility] [address] [place] [address] Pedro Lee MD [address] [facility] [address] [place] [address] documented as of this encounter Visit Diagnoses Not on filedocumented in this encounter Care Teams Manager Desktop Relationship Specialty Start Date End Date Terese Silvestre CNP [address] [place] [address] PCP - General 03/16/22 documented as of this encounter
== END 2024-10-30 11:13 | disposition home or self-care (01) ==
LOC: HO.ENCR 10:43
PROVIDERS: PCP Nurse Practitioner Family; Visit Provider Internal Medicine Endocrinology, Diabetes & Metabolism
DX: M81.0 Age-related osteoporosis without current pathological fracture (principal)
CPT/HCPCS: 99213

== ENCOUNTER → 2024-10-30 10:42 | Outpatient (BNVA) | payer OTHER, SELFPAY | PROVIDERS: PCP Nurse Practitioner Family; Visit Provider Internal Medicine Endocrinology, Diabetes & Metabolism | DX: M81.0 Age-related osteoporosis without current pathological fracture (principal) | CPT/HCPCS: 96372; 99212; J0897 ==

== ENCOUNTER 2024-12-14 13:03 | Outpatient (AMB) | payer OTHER, SELFPAY ==
--- NOTE | 2024-12-14 13:05 | MHC.PC.OV ---
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 Required: No Is last menstrual period known: No Post menopausal: No Patient : No Allergies acetaminophen (Vicodin) Allergy (Unknown, Verified 12/14/24 13:19) tongue swells, hives on bottom of feet adhesive tape (Adhesive Tape) Allergy (Unknown, Verified 12/14/24 13:19) Rash hydrocodone (Vicodin) Allergy (Unknown, Verified 12/14/24 13:19) tongue swells, hives on bottom of feet latex (Latex) Allergy (Unknown, Verified 12/14/24 13:19) Rash, red blisters penicillin V Allergy (Unknown, Verified 12/14/24 13:19) hives, rash Penicillins Allergy (Unknown, Verified 12/14/24 13:19) Rash, Nausea and Vomiting Sulfa (Sulfonamide Antibiotics) Allergy (Unknown, Verified 12/14/24 13:19) Hives, rash amphetamine (Adderall) Adverse Reaction (Unknown, Verified 12/14/24 13:19) diarrhea dextroamphetamine (Adderall) Adverse Reaction (Unknown, Verified 12/14/24 13:19) diarrhea morphine (MORPHINE) Adverse Reaction (Unknown, Verified 12/14/24 13:19) Nausea and Vomiting phenobarbital (Phenobarbital) Adverse Reaction (Unknown, Verified 12/14/24 13:19) extreme hyperactivity meperidine (From Demerol) Adverse Reaction (Verified 12/14/24 13:19) Vomiting Medication List - Last Reconciled 12/14/24 by Terese Silvestre CNP amlodipine 5 mg PO DAILY ascorbic acid (vitamin C) 1,000 mg PO DAILY 90 days aspirin 81 mg PO DAILY 90 days atorvastatin 80 mg PO BEDTIME 90 days cholecalciferol (vitamin D3) (Vitamin D3) 25 mcg PO DAILY lisinopril 20 mg PO DAILY 90 days methenamine hippurate 1 g PO daily 90 days metoprolol succinate ER 100 mg PO DAILY 90 days quetiapine ER 100 mg (2 x 50 mg) PO BEDTIME 30 days sennosides (senna) 8.6 mg PO BEDTIME 90 days tolterodine ER 4 mg PO DAILY 90 days zolpidem 10 mg PO BEDTIME Tobacco use date assessed: 12/14/24 Fall risk assessment: No Falls in past year Last assessed Fall Risk: 12/14/24 Dental Screening Dental Screen Date: 12/14/24 Did you have a dental visit in the last 12 months?: No Did you have a dental problem in the last 6 months where you did not have access to dental care?: No Was dental information given to patient?: No HPI HPI Comments History of Present Illness Details 69-year-old female presents for hypertension and review of recent lab results. She admits to taking her medications as prescribed without adverse reactions. She states that her blood pressure may be elevated due to current family issues. She reports stress and anxiety in the past few days due to legal issues with her son's girlfriend was been harassing her son. She notes that she was in court today with her son. For the past 2 days, she has not been eating due to stress and she has not been going for a walk due to fear of running into her son's girlfriend. She is followed by a therapist weekly and psychiatrist every 3 months. She also reports constant pain to her left lateral upper arm for the past 2 weeks. She denies fall, injury, or trauma. Naproxen and warm compresses alleviate the pain. She reports intermittent dry cough for the past few days. No headache, sore throat, nasal congestion/runny nose, fever, chills, body aches, fatigue, weakness. [facility] Medical History FH: cholecystectomy Hypersomnia Snoring Expressive aphasia Dysgraphia Stroke Multiple allergies Cholelithiasis Overactive bladder Recurrent urinary tract infection History of CVA with residual deficit Expressive aphasia History of CVA (cerebrovascular accident) Refused influenza vaccine COVID-19 vaccination declined Impaired fasting glucose Dyslipidemia Osteoporosis Psoriasis Gestational diabetes Hx of uterine prolapse Osteoarthritis of knees, bilateral Bipolar 1 disorder CKD (chronic kidney disease) stage 2, GFR 60-89 ml/min Essential hypertension Rectocele Urge incontinence Elevated blood pressure reading in office with diagnosis of hypertension Hypotonic bladder Urinary tract infection Dyspareunia in female Surgical History History of partial mastectomy of left breast History of bilateral oophorectomy H/O mastectomy Hx of cholecystectomy History of total left knee replacement (TKR) History of total right knee replacement (TKR) History of Maloney urethropexy Hx of total vaginal hysterectomy H/O rectocele repair Family History Father Diabetes mellitus CHF (congestive heart failure) Mother FH: stomach cancer Crohn disease Son Mental health disorder Social History Household Members: Children Housing: Apartment Do you presently have visiting nurse or other home services: Yes Alcohol intake: never Patient Tobacco Use Status: Current everyday Tobacco user Cigarette Packs Per Day: 0.1 Cigarettes Per Day: 6 Years Smoked: 40 e-Cigarette/Vaping Use: Never Used Second Hand Smoke Exposure: No service: No Current occupational status: disabled Current occupational exposures/hazards: No Sexual orientation: Straight/Heterosexual Gender identity: Female Cognitive needs: No Hearing needs: No Vision needs: No Questionnaire Thrive Questionnaire Date Thrive assessed: 04/04/24 JOSE-7 AMB Questionnaire JOSE-7 Date JOSE - 7 assessed: 06/05/24 Source: Developed by Drs. Ziggy Martino, Mesha Frye, Eben Dacosta and colleagues, with an educational susie from [employer]. Review of Systems Const Details: Const Denies chills, Denies fatigue, Denies fever(s), Denies headache(s) and Denies weakness ENT Denies dizziness and Denies headache(s) Card Denies chest pain, Denies lightheadedness, Denies dyspnea and Denies other (Palpitations) Resp Reports cough, Denies dyspnea, Denies wheezing and Denies other ( shortness of breath) GI Denies abdominal pain, Denies melena, Denies hematochezia, Denies change in bowel habits, Denies dyspepsia and Denies nausea Denies hematuria and Denies dysuria Musc Reports as per HPI Skin/Breast Denies rash, Denies unusual bruising and Denies wounds Neuro Denies abnormal gait, Denies dizziness, Denies headache(s), Denies memory loss, Denies numbness, Denies Sensory deficit (Neuro), Denies tingling and Denies weakness Psych Reports anxiety, Denies depression, Denies memory loss Endo Denies cold intolerance, Denies fatigue, Denies heat intolerance, Denies polydipsia and Denies polyuria Aller/Immun Denies wheezing Physical exam (Primary Care) Vital Signs: Last Vital Signs Temp 98.7 F 12/14/24 13:12 Pulse 74 12/14/24 13:12 Resp 16 12/14/24 13:12 BP 162/78 H 12/14/24 13:12 Pulse Ox 98 12/14/24 13:12 Oxygen Delivery Method Room Air 12/14/24 13:12 BMI result Body Mass Index 34.2 Tobacco/Smoking Status: Tobacco use Status Tobacco use date assessed 12/14/24 12/14/24 13:15 Patient Tobacco Use Status Current everyday Tobacco 12/14/24 13:07 e-Cigarette/Vaping Use Never Used 12/14/24 13:07 Thrive Assessment: Date of Thrive Assessment Date Thrive assessed 04/04/24 12/14/24 13:07 Const Other: General: no acute distress and well developed Nutritional Appearance: well nourished Orientation/consciousness: patient oriented x3 HENMT Head is normocephalic Bilateral ear canal and TM are normal Nasal turbinates and oropharynx are pink and moist Sinuses are nontender with palpation No auricular or cervical lymphadenopathy Eyes General: appearance normal, both eyes and all related structures Pupils: Equal, round and reactive pupils present EOM: EOMs intact bilaterally Resp Effort & Inspection: normal respiratory effort Auscultation: clear to auscultation bilaterally Cardio Rate: regular rate Rhythm: regular rhythm Heart sounds: S1 normal heart sound present, S2 normal heart sound present, no gallops, no murmurs and no rubs GI Palpation (GI): No Abdominal aortic bruit present, Soft to palpation, nontender, No hepatosplenomegaly present and No Rebound tenderness present Auscultation: normal bowel sounds General: Yes no CVA tenderness Back/Spine/Pelvis Back: no CVA tenderness Cervical Spine: cervical ROM normal and No Cervical spine tenderness Thoracic/Lumbar Spine: thoraco-lumbar ROM normal, No pain with thoraco-lumbar ROM, No thoracic spinal tenderness and No lumbar spinal tenderness Extrem General: Yes normal to inspection, No edema and No calf tenderness Skin General: warm and dry. Normal skin color. Normal skin turgor Neuro General: patient oriented x3, gait normal and no focal neuro deficit Cranial nerves: Yes Equal, round and reactive pupils present Cognition (Neuro): normal cognition Gait exam (Neuro): Normal gait present Sensory Exam: No Sensory deficit (Neuro) Psych Appearance: grossly normal Affect: normal affect Attitude: cooperative Thought process: Normal thought process present Coding Level of Care Code Est Pt Level 4 (40903) Complex EM visit Add On G2211 Diagnoses Essential hypertension I10 Pre-diabetes R73.03 Left arm pain M79.602 Cough R05.9 Assessment & Plan Assessment & Plan (1) Essential hypertension: Code(s): I10 - Essential (primary) hypertension Category: Medical Plan: Resting blood pressure is 140/80, slightly above goal of less than 130/80. Psychosocial stressors may be contributory. Continue current regimen. Low-sodium diet and routine exercise encouraged. Continue follow-up with therapist and psychiatrist as planned. Return in 2 months or sooner with symptoms or concerns. Verbalized understanding and agreed with the plan. (2) Pre-diabetes: Code(s): R73.03 - Prediabetes Category: Medical Plan: Recent A1c is 5.7%. Healthy diet and routine exercise encouraged. Will monitor A1c annually. Verbalized understanding and agreed with the plan. (3) Left arm pain: Code(s): M79.602 - Pain in left arm Category: Medical Plan: Reports constant pain to her left lateral upper arm for the past 2 weeks. She denies fall, injury, or trauma. Naproxen and warm compresses alleviate the pain. Normal ROM of the left arm. No overt injury or trauma. Continue to take naproxen as needed. Warm/cool compresses encouraged. Follow-up with worsening or new symptoms. Verbalized understanding and agreed with the plan. (4) Cough: Code(s): R05.9 - Cough, unspecified Category: Medical Plan: Reports intermittent dry cough for the past few days. No headache, sore throat, nasal congestion/runny nose, fever, chills, body aches, fatigue, weakness. Likely allergies, although viral illness is possible but low suspicion. Smoking may also exacerbate her symptoms. She smokes cigarettes daily. Smoking cessation encouraged. Zyrtec 10 mg daily ordered; advised to take as prescribed. Adequate hydration and rest encouraged. Follow-up as needed. Verbalized understanding and agreed with the plan. Medications: New cetirizine 10 mg PO DAILY 30 tabs 1RF 30 days
[2024-12-14 13:12] VITALS: BP 162/78; PULSE 74; RESP 16; TEMP 37.1; O2SAT 98; BMI 34.2
[2024-12-14 13:25] VITALS: BP 140/80
--- OUTSIDE RECORDS SUMMARY | 2024-12-14 15:40 | XMS_ITS | Encounter Summary ---
Author Organization [facility] Address [address] [facility] [address] [place] [address] Phone Care Team Providers Care Plug Drill Operator Name Role Phone Terese Silvestre CNP Primary Care Provider [phone] Reason for Visit * Reason Comments Med Refill Encounter Details Date Type Department Care Team (Late st Contact Info) Description 09/16/2020 Refill [facility] [address] [place] [address] Pedro Lee MD [address] [address] Social History Tobacco Use Types [...] Office Visit [facility] [address] [place] [address] Pedro Lee MD [address] [facility] [address] [place] [address] documented as of this encounter Visit Diagnoses Not on filedocumented in this encounter Care Teams Plug Drill Operator Relationship Specialty Start Date End Date Terese Silvestre CNP [address] [place] [id number] PCP - General 03/16/22 documented as of this encounter
--- OUTSIDE RECORDS SUMMARY | 2024-12-14 15:40 | XMS_ITS | Clinical Summary ---
Author Organization [facility] Address [address] [place] [id number] Care Team Providers Care Cloth Colors Examiner Name Role Phone Terese Silvestre SUSHMA Primary Care Provider [phone] Allergies Active Allergy Reactions Criticality Noted Date [...] Visit [facility] [address] [place] [address] Pedro Lee MD [address] [phone] Health Maintenance Due Date Last Done Comments Breast Cancer Screening 1955 Pneumococcal Vaccine: 50+ Ye ars (1 of 2 - PCV) 10/30/1975 Colorectal Cancer Screening: Annual FOBT 2005 Colorectal Cancer Screening: Colonoscopy 2005 Colorectal Cancer Screening: Sigmoidoscopy 2005 Influenza Vaccine (#1) 2024 Hepatitis B Vaccine Aged Out No longe r eligible based on patient's age to complete this topic Insurance [facility] ([id number]) [facility] ([id number]) Care Teams Cloth Colors Examiner Relationship Specialty Start Date End Date Terese Silvestre CNP [address] [place] [id number] PCP - General 03/16/22
== END 2024-12-14 13:37 | disposition home or self-care (01) ==
LOC: HO.HMCFM 13:04
PROVIDERS: PCP Nurse Practitioner Family; Visit Provider Nurse Practitioner Family
DX: I10 Essential (primary) hypertension (principal); R73.03 Prediabetes; M79.602 Pain in left arm; R05.9 Cough, unspecified

== ENCOUNTER → 2024-12-14 13:03 | Outpatient (BNVA) | payer OTHER, SELFPAY | PROVIDERS: PCP Nurse Practitioner Family; Visit Provider Nurse Practitioner Family | DX: I10 Essential (primary) hypertension (principal); R73.03 Prediabetes; M79.602 Pain in left arm; R05.9 Cough, unspecified | CPT/HCPCS: 99212 ==

== ENCOUNTER 2024-12-17 12:22 | Outpatient (AMB) | payer OTHER, SELFPAY ==
--- NOTE | 2024-12-17 12:30 | A.OFFVIS_ITS ---
VS Expanded 12/17/24 12:32 Height 5 ft 4 in Weight 199 lb 15.348 oz BMI 34.3 Intake Visit Reasons: unintentional wt gain Allergies acetaminophen (Vicodin) Allergy (Unknown, Verified 12/14/24 13:19) tongue swells, hives on bottom of feet adhesive tape (Adhesive Tape) Allergy (Unknown, Verified 12/14/24 13:19) Rash hydrocodone (Vicodin) Allergy (Unknown, Verified 12/14/24 13:19) tongue swells, hives on bottom of feet latex (Latex) Allergy (Unknown, Verified 12/14/24 13:19) Rash, red blisters penicillin V Allergy (Unknown, Verified 12/14/24 13:19) hives, rash Penicillins Allergy (Unknown, Verified 12/14/24 13:19) Rash, Nausea and Vomiting Sulfa (Sulfonamide Antibiotics) Allergy (Unknown, Verified 12/14/24 13:19) Hives, rash amphetamine (Adderall) Adverse Reaction (Unknown, Verified 12/14/24 13:19) diarrhea dextroamphetamine (Adderall) Adverse Reaction (Unknown, Verified 12/14/24 13:19) diarrhea morphine (MORPHINE) Adverse Reaction (Unknown, Verified 12/14/24 13:19) Nausea and Vomiting phenobarbital (Phenobarbital) Adverse Reaction (Unknown, Verified 12/14/24 13:19) extreme hyperactivity meperidine (From Demerol) Adverse Reaction (Verified 12/14/24 13:19) Vomiting Nutrition Presentation Details: Pt presents for MNT f/u for obesity Fluid intake : 72 oz of water per day walking 1-2 miles /day Reports less appetite related to recent family stress. Doing well now, maintaining weight off B: life cereal and blue berries 1% or fat free milk, coffee L: skips of has 1 slice of whole wheat bread with butter or cream cheese D: mom's meals, choosing 700 calorie meal and low sodium options snacks: working on reducing on pastries/cookies physical activity: walking 1 mile a dya (40min to 1 hour) BS Monitoring Most Recent Diabetes Results: Creatinine, (0.5-1.4) 1.09 mg/dL 10/25/24 BUN, (9-16) 12 mg/dL 10/25/24 Sodium, (135-145) 142 mmol/L 10/25/24 Potassium, (3.3-5.1) 4.3 mmol/L 10/25/24 Chloride, (96-108) 108 mmol/L 10/25/24 Carbon Dioxide, (22-29) 26 mmol/L 10/25/24 Calcium, (8.4-10.2) 9.7 mg/dL 10/25/24 Albumin, (3.5-5.0) 4.7 g/dL 10/25/24 [facility] Medical History FH: cholecystectomy Hypersomnia Snoring Expressive aphasia Dysgraphia Stroke Multiple allergies Cholelithiasis Overactive bladder Recurrent urinary tract infection History of CVA with residual deficit Expressive aphasia History of CVA (cerebrovascular accident) Refused influenza vaccine COVID-19 vaccination declined Impaired fasting glucose Dyslipidemia Osteoporosis Psoriasis Gestational diabetes Hx of uterine prolapse Osteoarthritis of knees, bilateral Bipolar 1 disorder CKD (chronic kidney disease) stage 2, GFR 60-89 ml/min Essential hypertension Rectocele Urge incontinence Elevated blood pressure reading in office with diagnosis of hypertension Hypotonic bladder Urinary tract infection Dyspareunia in female Surgical History History of partial mastectomy of left breast History of bilateral oophorectomy H/O mastectomy Hx of cholecystectomy History of total left knee replacement (TKR) History of total right knee replacement (TKR) History of Maloney urethropexy Hx of total vaginal hysterectomy H/O rectocele repair Family History Father Diabetes mellitus CHF (congestive heart failure) Mother FH: stomach cancer Crohn disease Son Mental health disorder Social History Household Members: Children Housing: Apartment Do you presently have visiting nurse or other home services: Yes Alcohol intake: never Patient Tobacco Use Status: Current everyday Tobacco user Cigarette Packs Per Day: 0.1 Cigarettes Per Day: 6 Years Smoked: 40 e-Cigarette/Vaping Use: Never Used Second Hand Smoke Exposure: No service: No Current occupational status: disabled Current occupational exposures/hazards: No Sexual orientation: Straight/Heterosexual Gender identity: Female Cognitive needs: No Hearing needs: No Vision needs: No Assessment & Plan Assessment & Plan (1) Abnormal weight gain: Code(s): R63.5 - Abnormal weight gain Category: Medical Plan: Wt: 93Kg ( 03/24 ), 92kg (04/24), 89.5 kg(05/22), 91 kg (07/22), 92 kg (09/21), 90 kg (12/22) Est kcal needs as per MSJ: 1700 (40% carb, 30% protein/fat) Est fluid needs as per 25-30 ml/d: 2700 Est prot per day as per 1 g/kg bw: 90 Recommend fiber intake : 8-10 g per day and gradually increase to 25-28 g per day for women and 35-38 g for men or as tolerated Recommend sodium intake per day : less than 2300 mg Educated patient on: ( R = reviewed V = verbalizes understanding N/R = needs review N/A = not applicable * Food sources of carbohydrate, adequate serving sizes and its role in various health conditions: R * Differences between complex carbohydrates a simple carbohydrates, role of fiber in diet: R * Lean protein sources of foods: R * Differences between types of fats and role in diet (mono on saturated fat fatty acids, saturated fatty acids, trans fats): R * Food sources of sodium in salt and healthy modifications for heart health in kidney health: R * Vitamins and minerals: R V N/R * Healthy plate method concept: R * Physical activity: Benefits a precaution: R Patient Instructions: Continue working on reducing sugars (cookies/pastries - read food label : less than 100 calorie as snack choose grilled chicken vs breaded chicken (for less fats keep hydrated and physically active as able Coding Level of Care Code Nutr Indiv Subseq (29707) Diagnoses Abnormal weight gain R63.5 Time Spent (min) 30
[2024-12-17 12:32] VITALS: BMI 34.3
== END 2024-12-17 13:07 | disposition home or self-care (01) ==
LOC: HO.ENCR 12:23
PROVIDERS: PCP Nurse Practitioner Family; Visit Provider Dietitian, Registered
DX: R63.5 Abnormal weight gain (principal)

== ENCOUNTER → 2024-12-17 12:22 | Outpatient (BNVA) | payer OTHER, SELFPAY | PROVIDERS: PCP Nurse Practitioner Family; Visit Provider Dietitian, Registered | DX: R63.5 Abnormal weight gain (principal) | CPT/HCPCS: 97803 ==

== ENCOUNTER 2025-01-28 13:25 | Outpatient (AMB) | payer OTHER, SELFPAY ==
--- NOTE | 2025-01-28 13:36 | MHC.OFFVIS ---
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 Student Accounts Manager: Student Accounts Manager Present (Marylu Wilson MA) Allergies acetaminophen (Vicodin) Allergy (Unknown, Verified 12/14/24 13:19) tongue swells, hives on bottom of feet adhesive tape (Adhesive Tape) Allergy (Unknown, Verified 12/14/24 13:19) Rash hydrocodone (Vicodin) Allergy (Unknown, Verified 12/14/24 13:19) tongue swells, hives on bottom of feet latex (Latex) Allergy (Unknown, Verified 12/14/24 13:19) Rash, red blisters penicillin V Allergy (Unknown, Verified 12/14/24 13:19) hives, rash Penicillins Allergy (Unknown, Verified 12/14/24 13:19) Rash, Nausea and Vomiting Sulfa (Sulfonamide Antibiotics) Allergy (Unknown, Verified 12/14/24 13:19) Hives, rash amphetamine (Adderall) Adverse Reaction (Unknown, Verified 12/14/24 13:19) diarrhea dextroamphetamine (Adderall) Adverse Reaction (Unknown, Verified 12/14/24 13:19) diarrhea morphine (MORPHINE) Adverse Reaction (Unknown, Verified 12/14/24 13:19) Nausea and Vomiting phenobarbital (Phenobarbital) Adverse Reaction (Unknown, Verified 12/14/24 13:19) extreme hyperactivity meperidine (From Demerol) Adverse Reaction (Verified 12/14/24 13:19) Vomiting Medication List - Last Reconciled 01/28/25 by Lissy Khan CNM amlodipine 5 mg PO DAILY ascorbic acid (vitamin C) 1,000 mg PO DAILY 90 days aspirin 81 mg PO DAILY 90 days atorvastatin 80 mg PO BEDTIME 90 days cetirizine 10 mg PO DAILY 30 days cholecalciferol (vitamin D3) (Vitamin D3) 25 mcg PO DAILY lisinopril 20 mg PO DAILY 90 days methenamine hippurate 1 g PO daily 90 days metoprolol succinate ER 100 mg PO DAILY 90 days quetiapine ER 100 mg (2 x 50 mg) PO BEDTIME 30 days sennosides (senna) 8.6 mg PO BEDTIME 90 days tolterodine ER 4 mg PO DAILY 90 days zolpidem 10 mg PO BEDTIME HPI Comments Details: Pt presents today for ANNUAL exam She has the following concerns: none, states she just wants to be sure all is well in the vagina She is not currently in a relationship. Exercise: daily walks at the [facility] Nutrition/calcium: takes supplements Contraception: s/p complete hyst/ Post menopause Last Pap: n/a , s/p hyst Last mammo: 07/2024, Results birads 2 Colonoscopy 04/2024 polyps Bone Density 06/2023 Osteoporosis PFS Medical History (Updated 01/28/25 @ 16:00 by Lissy Khan CNM) Open wound of chest wall, uncomplicated FH: cholecystectomy Hypersomnia Snoring Expressive aphasia Dysgraphia Stroke Multiple allergies Cholelithiasis Overactive bladder Recurrent urinary tract infection History of CVA with residual deficit Expressive aphasia History of CVA (cerebrovascular accident) Refused influenza vaccine COVID-19 vaccination declined Impaired fasting glucose Dyslipidemia Osteoporosis Psoriasis Gestational diabetes Hx of uterine prolapse Osteoarthritis of knees, bilateral Bipolar 1 disorder CKD (chronic kidney disease) stage 2, GFR 60-89 ml/min Essential hypertension Rectocele Urge incontinence Elevated blood pressure reading in office with diagnosis of hypertension Hypotonic bladder Urinary tract infection Dyspareunia in female Surgical History History of partial mastectomy of left breast History of bilateral oophorectomy H/O mastectomy Hx of cholecystectomy History of total left knee replacement (TKR) History of total right knee replacement (TKR) History of Maloney urethropexy Hx of total vaginal hysterectomy H/O rectocele repair Family History Father Diabetes mellitus CHF (congestive heart failure) Mother FH: stomach cancer Crohn disease Son Mental health disorder Social History Household Members: Children Housing: Apartment Do you presently have visiting nurse or other home services: Yes Alcohol intake: never Patient Tobacco Use Status: Current everyday Tobacco user Cigarette Packs Per Day: 0.1 Cigarettes Per Day: 6 Years Smoked: 40 e-Cigarette/Vaping Use: Never Used Second Hand Smoke Exposure: No service: No Current occupational status: disabled Current occupational exposures/hazards: No Sexual orientation: Straight/Heterosexual Gender identity: Female Cognitive needs: No Hearing needs: No Vision needs: No Female Reproductive History Menstrual control method: none Total pregnancies: 3 Full term: 1 Ab induced: 2 Date of Mammogram: 07/31/24 (bi rad 2) Review of Systems Const Reports no additional complaints Eyes Reports no additional complaints ENT Reports no additional complaints Card Reports no additional complaints Resp Reports no additional complaints GI Reports no additional complaints Reports as per HPI Skin/Breast Reports system reviewed and no additional complaints, except as documented Physical Exam Vital Signs: Last Vital Signs BP 140/78 H 01/28/25 13:41 BMI result Body Mass Index 34.0 Const General: cooperative, healthy appearing and no acute distress Orientation/consciousness: patient oriented x3 HEENT Head: Yes normal to inspection and Yes normocephalic Ears: external ears normal General nose exam: Normal external nose present Neck Neck: Yes normal visual inspection Chest Breast/axilla inspection: normal inspection of the breasts (left breast s/p mastectomy), normal inspection of the axillae and Other (No skin changes, peau d orange, or nipple discharge noted) Breast/axilla palpation: normal palpation of the breasts (right breast), normal palpation of the axillae and no axillary lymphadenopathy Resp Effort & Inspection: normal respiratory effort and able to speak in complete sentences (though notable expressive aphagia s/p stroke) GI Inspection: No distended Palpation (GI): Soft to palpation, nontender and no masses Percussion: Yes normal to percussion External Female Exam: normal external appearance and normal appearance of the urethra Speculum Exam - Vagina: normal appearance of the vagina and normal vaginal discharge Bimanual exam- vagina & uterus: other (limited, low vag cuff, no erosion noted) Bimanual Exam- Adnexa, other: no masses Skin General skin exam: no rashes or lesions noted Neuro General: patient oriented x3 and moves all extremities Extrem General: Yes full ROM Psych Affect: normal affect Attitude: cooperative Thought process: Normal thought process present Assessment & Plan Assessment & Plan (1) Well woman exam with routine gynecological exam: Code(s): Z01.419 - Encounter for gynecological examination (general) (routine) without abnormal findings (2) Screening breast examination: Code(s): Z12.39 - Encounter for other screening for malignant neoplasm of breast Plan During the visit, the following areas of concern were addressed: Regular exercise Healthy lifestyle Health Maintenance and Screening -Reviewed ASCCP guidelines for Paps and yearly (bi-yearly ) pelvic exam. -Reviewed and encouraged diet and exercise for cardiovascular and bone health -Reviewed breast self-awareness. Importance of yearly mammogram after age 40 (earlier if first-degree relative with breast cancer at a younger age ) Discuss use of 3 times per week weight-bearing exercise, vitamin D3 and servings of dietary calcium daily for bone health. -continue to follow with PCP for general medical care, immunizations. Screening strategies for colon cancer after age 50. Discussion of Kegel exercises for urinary incontinence Family and personal history of cancer reviewed. The patient has BMI: 34 The patient is overweight. Approaches towards weight loss are discussed including burning more calories than one takes in by frequent, small meals, portion control, avoiding eating before bedtime, regular exercise with an emphasis on duration rather than intensity, strength training exercise, referral to [employer] or to weight loss management center upon patient request. RTO one year or sooner deb Khan CNM Note about provider documentation : If you or the patient named in this chart and are reviewing your medical notes, please note that medical documentation is often written with abbreviations and medical terminology, and directed for other providers who may be involved in your care as well. Documentation is critical to record what has happened, what tests were ordered, and so they are interpreted with the resulting diagnoses. These nodes have been made available for patient review but not specifically written for the patient. Important health information is always given to my patients in clinical instructions. Please review your after visit summary and our contact our clinical staff if you have any questions. Coding Level of Care Code Est Pt Prev Care >65y(39764) Diagnoses Well woman exam with routine gynecological exam Z01.419 Screening breast examination Z12.39
[2025-01-28 13:41] VITALS: BP 140/78; BMI 34.0
--- OUTSIDE RECORDS SUMMARY | 2025-01-28 16:59 | XMS_ITS | Encounter Summary ---
Author Organization [facility] Address [address] [facility] [address] [place] [address] Phone Care Team Providers Care Prawn Trawler Hand Name Role Phone Terese Silvestre CNP Primary Care Provider [phone] Reason for Visit * Reason Comments Med Refill Encounter Details Date Type Department Care Team (Late st Contact Info) Description 09/16/2020 Refill [facility] [address] [place] [address] Pedro Lee MD [address] [address] Social History Tobacco Use Types [...] Office Visit [facility] [address] [place] [address] Pedro Lee MD [address] [facility] [address] [place] [address] documented as of this encounter Visit Diagnoses Not on filedocumented in this encounter Care Teams Prawn Trawler Hand Relationship Specialty Start Date End Date Terese Silvestre CNP [address] [place] [address] PCP - General 03/16/22 documented as of this encounter
--- OUTSIDE RECORDS SUMMARY | 2025-01-28 16:59 | XMS_ITS | Clinical Summary ---
Author Organization [facility] Address [address] [place] [id number] Care Team Providers Care Accredited Legal Secretary Name Role Phone Terese Silvestre SUSHMA Primary Care Provider [phone] Allergies Active Allergy Reactions Criticality Noted Date [...] Encounters Date Type Department Care Team Description 01/27/2025 Orders Only [facility] [address] [place] [address] Pedro Lee MD Chronic kidney disease stage 2; Hypertensive renal disease; Other proteinuria from Last [...] Office Visit [facility] [address] [place] [address] Pedro Lee MD [address] [phone] Health Maintenance Due Date Last Done Comments [...] Phone Billing Address Personal/Family Self 1955 [address] [id number] [facility] ([id number]) [facility] ([id number]) Care Teams Accredited Legal Secretary Relationship Specialty Start Date End Date Terese Silvestre CNP [address] [place] [address] PCP - General 03/16/22
--- OUTSIDE RECORDS SUMMARY | 2025-01-28 16:59 | XMS_ITS | Encounter Summary ---
Author Organization [facility] Address [address] [address] Phone Care Team Providers Care Head Golf Coach Name Role Phone Terese Silvestre CNP Primary Care Provider [phone] Encounter Details Date Type Department Care Team (Late st Contact Info) Description 01/27/2025 Orders Only [facility] [address] [place] [address] Pedro Lee MD [address] [address] Chronic kidney disease stage 2; Hypertensive renal disease; Other proteinuria Social History [...] Office Visit [facility] [address] [place] [address] Pedro Lee MD [address] [address] documented as of this encounter Visit Diagnoses Diagnosis Chronic kidney disease stage 2 Hypertensive renal disease Other proteinuria documented in this encounter Care Teams Head Golf Coach Relationship Specialty Start Date End Date Terese Silvestre CNP [address] [place] [address] PCP - General 03/16/22 documented as of this encounter
== END 2025-01-29 16:13 | disposition home or self-care (01) ==
LOC: HO.HWSM 13:25
PROVIDERS: PCP Nurse Practitioner Family; Visit Provider Advanced Practice Midwife
DX: Z01.419 Encounter for gynecological examination (general) (routine) without abnormal findings (principal); Z12.39 Encounter for other screening for malignant neoplasm of breast
CPT/HCPCS: 99397; 99459

== ENCOUNTER → 2025-01-28 13:25 | Outpatient (BNVA) | payer OTHER, SELFPAY | PROVIDERS: PCP Nurse Practitioner Family; Visit Provider Advanced Practice Midwife | DX: Z01.419 Encounter for gynecological examination (general) (routine) without abnormal findings (principal); Z12.39 Encounter for other screening for malignant neoplasm of breast | CPT/HCPCS: 99397 ==

== ENCOUNTER 2025-02-15 10:52 | Outpatient (AMB) | payer OTHER, SELFPAY ==
--- NOTE | 2025-02-15 11:00 | A.OFFPC_ITS ---
Vital Signs 02/15/25 11:08 02/15/25 11:38 Height 5 ft 4 in Weight 197 lb 6 oz BMI 33.9 BP 134/71 126/60 Blood Pressure Location Lt brachial Rt brachial Position Sitting Sitting Respiration 16 Pulse 90 Pulse Source Pulse Oximeter Temp 98.6 F Temp Source Oral Pulse Oximetry (%) 96 Oxygen Delivery Method Room Air Intake Visit Reasons: 2mos HTN Intake Note: patient here for n2 month follow up on HTN Surgery Nurse Required: No Is last menstrual period known: No Post menopausal: No Patient : No Allergies acetaminophen (Vicodin) Allergy (Unknown, Verified 02/15/25 11:26) tongue swells, hives on bottom of feet adhesive tape (Adhesive Tape) Allergy (Unknown, Verified 02/15/25 11:26) Rash hydrocodone (Vicodin) Allergy (Unknown, Verified 02/15/25 11:26) tongue swells, hives on bottom of feet latex (Latex) Allergy (Unknown, Verified 02/15/25 11:26) Rash, red blisters penicillin V Allergy (Unknown, Verified 02/15/25 11:26) hives, rash Penicillins Allergy (Unknown, Verified 02/15/25 11:26) Rash, Nausea and Vomiting Sulfa (Sulfonamide Antibiotics) Allergy (Unknown, Verified 02/15/25 11:26) Hives, rash amphetamine (Adderall) Adverse Reaction (Unknown, Verified 02/15/25 11:26) diarrhea dextroamphetamine (Adderall) Adverse Reaction (Unknown, Verified 02/15/25 11:26) diarrhea morphine (MORPHINE) Adverse Reaction (Unknown, Verified 02/15/25 11:26) Nausea and Vomiting phenobarbital (Phenobarbital) Adverse Reaction (Unknown, Verified 02/15/25 11:26) extreme hyperactivity meperidine (From Demerol) Adverse Reaction (Verified 02/15/25 11:26) Vomiting Medication List - Last Reconciled 02/15/25 by Terese Silvestre CNP amlodipine 5 mg PO DAILY ascorbic acid (vitamin C) 1,000 mg PO DAILY 90 days aspirin 81 mg PO DAILY 90 days atorvastatin 80 mg PO BEDTIME 90 days cetirizine 10 mg PO DAILY 30 days cholecalciferol (vitamin D3) (Vitamin D3) 25 mcg PO DAILY lisinopril 20 mg PO DAILY 90 days methenamine hippurate 1 g PO daily 90 days metoprolol succinate ER 100 mg PO DAILY 90 days quetiapine ER 100 mg (2 x 50 mg) PO BEDTIME 30 days sennosides (senna) 8.6 mg PO BEDTIME 90 days tolterodine ER 4 mg PO DAILY 90 days zolpidem 10 mg PO BEDTIME Tobacco use date assessed: 02/15/25 Fall risk assessment: No Falls in past year Last assessed Fall Risk: 02/15/25 Dental Screening Dental Screen Date: 02/15/25 Did you have a dental visit in the last 12 months?: No Did you have a dental problem in the last 6 months where you did not have access to dental care?: No Was dental information given to patient?: No HPI HPI Comments History of Present Illness Details 69-year-old female presents for hyperten kurtis follow-up. She admits to taking her medications as prescribed without adverse reactions. Request referral to a foot doctor for an ingrown nail of the right great toe. [facility] Medical History (Updated 02/15/25 @ 11:37 by Terese Silvestre CNP) Open wound of chest wall, uncomplicated FH: cholecystectomy Hypersomnia Snoring Expressive aphasia Dysgraphia Stroke Multiple allergies Cholelithiasis Overactive bladder Recurrent urinary tract infection History of CVA with residual deficit Expressive aphasia History of CVA (cerebrovascular accident) Refused influenza vaccine COVID-19 vaccination declined Impaired fasting glucose Dyslipidemia Osteoporosis Psoriasis Gestational diabetes Hx of uterine prolapse Osteoarthritis of knees, bilateral Bipolar 1 disorder CKD (chronic kidney disease) stage 2, GFR 60-89 ml/min Essential hypertension Rectocele Urge incontinence Elevated blood pressure reading in office with diagnosis of hypertension Hypotonic bladder Urinary tract infection Dyspareunia in female Surgical History History of partial mastectomy of left breast History of bilateral oophorectomy H/O mastectomy Hx of cholecystectomy History of total left knee replacement (TKR) History of total right knee replacement (TKR) History of Maloney urethropexy Hx of total vaginal hysterectomy H/O rectocele repair Family History Father Diabetes mellitus CHF (congestive heart failure) Mother FH: stomach cancer Crohn disease Son Mental health disorder Social History Household Members: Children Housing: Apartment Do you presently have visiting nurse or other home services: Yes Alcohol intake: never Patient Tobacco Use Status: Current everyday Tobacco user Cigarette Packs Per Day: 0.1 Cigarettes Per Day: 6 Years Smoked: 40 e-Cigarette/Vaping Use: Never Used Second Hand Smoke Exposure: No service: No Current occupational status: disabled Current occupational exposures/hazards: No Sexual orientation: Straight/Heterosexual Gender identity: Female Cognitive needs: No Hearing needs: No Vision needs: No Questionnaire Thrive Questionnaire Date Thrive assessed: 04/04/24 I am a: Patient What is your living situation today?: I have a steady place to live Within the past 12 months, did the food you bought not last and you didn't have the money to get more?: Sometimes True Within the past 12 months, did you worry whether your food would run out before you got money to buy more?: Sometimes True Do you have trouble paying for medicines?: No Do you have trouble getting transportation to medical appointments?: No Do you have trouble paying your heating and electricity bill?: No Do you have trouble taking care of your child, family member or friend?: No Do you have trouble with day-to-day activities such as bathing, preparing meals, shopping, managing finances, etc.?: No Are you currently unemployed and looking for a job?: No Are you interested in more education?: No Please select the resources that you would like help with: Food Currently or been in a relationship where the following occur: No concerns reported THRIVE Score: 2 JOSE-7 AMB Questionnaire JOSE-7 Date JOSE - 7 assessed: 06/05/24 Source: Developed by Drs. Ziggy Martino, Mesha Frye, Eben Dacosta and colleagues, with an educational susie from [employer]. Review of Systems Const Details: Const Denies chills, Denies fatigue, Denies fever(s), Denies headache(s) and Denies weakness ENT Denies dizziness and Denies headache(s) Card Denies chest pain, Denies lightheadedness, Denies dyspnea and Denies other (Palpitations) Resp Denies cough, Denies dyspnea, Denies wheezing and Denies other ( shortness of breath) GI Denies abdominal pain, Denies melena, Denies hematochezia, Denies change in bowel habits, Denies dyspepsia and Denies nausea Denies hematuria and Denies dysuria Musc Denies abnormal gait, Denies myalgias, Denies arthralgias, Denies numbness and Denies tingling Skin/Breast Reports ingrown toenail, Denies rash, Denies unusual bruising and Denies wounds Neuro Denies abnormal gait, Denies dizziness, Denies headache(s), Denies memory loss, Denies numbness, Denies Sensory deficit (Neuro), Denies tingling and Denies weakness Psych Denies anxiety, Denies depression, Denies memory loss Endo Denies cold intolerance, Denies fatigue, Denies heat intolerance, Denies polydipsia and Denies polyuria Aller/Immun Denies wheezing Physical exam (Primary Care) Vital Signs: Last Vital Signs Temp 98.6 F 02/15/25 11:08 Pulse 90 02/15/25 11:08 Resp 16 02/15/25 11:08 BP 134/71 02/15/25 11:08 Pulse Ox 96 02/15/25 11:08 Oxygen Delivery Method Room Air 02/15/25 11:08 BMI result Body Mass Index 33.9 Tobacco/Smoking Status: Tobacco use Status Tobacco use date assessed 02/15/25 02/15/25 11:11 Patient Tobacco Use Status Current everyday Tobacco 02/15/25 11:02 e-Cigarette/Vaping Use Never Used 02/15/25 11:02 Thrive Assessment: Date of Thrive Assessment Date Thrive assessed 04/04/24 02/15/25 11:02 Currently or been in a relationship where the following occur: No concerns reported Const Other: General: no acute distress and well developed Nutritional Appearance: well nourished Orientation/consciousness: patient oriented x3 HENMT Head: Yes normocephalic and Yes atraumatic Eyes General: appearance normal, both eyes and all related structures Pupils: Equal, round and reactive pupils present EOM: EOMs intact bilaterally Resp Effort & Inspection: normal respiratory effort Auscultation: clear to auscultation bilaterally Cardio Rate: regular rate Rhythm: regular rhythm Heart sounds: S1 normal heart sound present, S2 normal heart sound present, no gallops, no murmurs and no rubs Back/Spine/Pelvis Back: no CVA tenderness Cervical Spine: cervical ROM normal and No Cervical spine tenderness Thoracic/Lumbar Spine: thoraco-lumbar ROM normal, No pain with thoraco-lumbar ROM, No thoracic spinal tenderness and No lumbar spinal tenderness Extrem General: Yes normal to inspection, No edema and No calf tenderness Skin General: warm and dry. Normal skin color. Normal skin turgor. Ingrown nail of right great toe Neuro General: patient oriented x3, gait normal and no focal neuro deficit Psych Appearance: grossly normal Affect: normal affect Attitude: cooperative Thought process: Normal thought process present Coding Level of Care Code Est Pt Level 3 (41792) Diagnoses Essential hypertension I10 Ingrown right greater toenail L60.0 Assessment & Plan Assessment & Plan (1) Essential hypertension: Code(s): I10 - Essential (primary) hypertension Category: Medical Plan: Resting blood pressure is 126/60, within goal of less than 130/80. Continue current treatment regimen. Low-sodium diet encouraged. Follow-up in 2-3 months for transfer of care with a new PCP within the practice. Return sooner with symptoms or concerns. Verbalized understanding and agreed with the plan. (2) Ingrown right greater toenail: Code(s): L60.0 - Ingrowing nail Category: Medical Plan: Referred to [facility] Podiatry. Orders: Referrals Podiatry Referral L60.0 - Ingrowing nail
[2025-02-15 11:08] VITALS: BP 134/71; PULSE 90; RESP 16; TEMP 37; O2SAT 96; BMI 33.9
[2025-02-15 11:38] VITALS: BP 126/60
--- OUTSIDE RECORDS SUMMARY | 2025-02-15 12:44 | XMS_ITS | Encounter Summary ---
Author Organization [facility] Address [address] [facility] [[email or web address] [address] [place] [address] Phone Care Team Providers Care Putty And Caulking Supervisor Name Role Phone Terese Silvestre CNP Primary Care Provider [phone] Reason for Visit * Reason Comments Med Refill Encounter Details Date Type Department Care Team (Late st Contact Info) Description 09/16/2020 Refill [facility] [address] [place] [address] Pedro Lee MD [address] [facility] [address] [place] [address] Social History Tobacco Use Types Packs/Day [...] Office Visit [facility] [address] [place] [phone] Pedro Lee MD [address] [facility] [address] [place] [address] documented as of this encounter Visit Diagnoses Not on filedocumented in this encounter Care Teams Putty And Caulking Supervisor Relationship Specialty Start Date End Date Terese Silvestre CNP [address] [place] [phone] PCP - General 03/16/22 documented as of this encounter
--- OUTSIDE RECORDS SUMMARY | 2025-02-15 12:44 | XMS_ITS | Clinical Summary ---
Author Organization [facility] Facility Address [address] [place] [id number] Care Team Providers Care Software Asset Manager Name Role Phone Terese Silvestre CNP Primary Care Provider [phone] Allergies Active Allergy Reactions Criticality Noted Date [...] Orders Only [facility] [address] [id number] Pedro Lee MD Chronic kidney [...] Office Visit [facility] [address] [id number] Pedro Lee MD [address] [phone] Health Maintenance Due Date Last Done Comments [...] Phone Billing Address Personal/Family Self [address] ([id number]) [place] [address] ([id number]) Care Teams Software Asset Manager Relationship Specialty Start Date End Date Terese Silvestre CNP [address] [place] [address] PCP - General 03/16/22
== END 2025-02-15 11:37 | disposition home or self-care (01) ==
LOC: HO.HMCFM 10:53
PROVIDERS: PCP Nurse Practitioner Family; Visit Provider Nurse Practitioner Family
DX: I10 Essential (primary) hypertension (principal); L60.0 Ingrowing nail

== ENCOUNTER → 2025-02-15 10:52 | Outpatient (BNVA) | payer OTHER, SELFPAY | PROVIDERS: PCP Nurse Practitioner Family; Visit Provider Nurse Practitioner Family | DX: L60.0 Ingrowing nail (principal); Z79.899 Other long term (current) drug therapy | CPT/HCPCS: 99212 ==